=== PATIENT | female | born 1955 | race Caucasian/White ===

== ENCOUNTER 2016-11-30 11:22 | Emergency (ER) | payer MEDICARE, MEDICAID ==
[~2016-11-30] VITALS: Ht 180.3 cm; Wt 86.2 kg
[~2016-11-30 11:22] MED LIST: ALB.5NB20 HHN; ALB0.5V INH; ALBU8.5H2; ALBUTERAL INHALER; ASP325T; ASP325T PO; AZIT-21 PO; CEFP250T2 PO; CLIN300C3 PO; COUMADIN; CPR500T PO; CRESTOR; CYCL10TA9 PO; DOXY100C2; DOXY100C2 PO; FURO40TA4 PO; GFCD10B PO; HYDR-1231 PO; HYDR1TAB71 PO; KCL20TCR; LASIX; METO25TA; METO25TA PO; NEXIUM; NF-ESOM40C PO; NFPRILOC40; PHEN118S11 PO; PRD20T PO; PRM25T PO; PROP1TAB77 PO; PRV20T GT; ROSU10TA12 PO; TOPROL; TRAM-21; WARF3TAB PO; WARF6TAB PO; WRF3T PO; [UNRECOGNIZED DRUG - OTHER]
[2016-11-30 12:20] LABS: BASOPHILS # (AUTO) 0.1 10^3/uL (0.0-0.1); BASOPHILS % (AUTO) 1 % (0-10); EOSINOPHILS # (AUTO) 0.5 10^3/uL (0.0-0.3); EOSINOPHILS % (AUTO) 6 % (0-10); LYMPHOCYTES # (AUTO) 1.6 X 10^3 (1.0-4.0); LYMPHOCYTES % (AUTO) 18 % (12-44); MEAN CORPUSCULAR HEMOGLOBIN 28 PG (25-34); MEAN CORPUSCULAR HGB CONC 33 G/DL (32-36); MEAN CORPUSCULAR VOLUME 86 FL (80-99); MEAN PLATELET VOLUME 10.5 FL (7.4-10.4); MONOCYTES # (AUTO) 1.2 X 10^3 (0.0-1.0); MONOCYTES % (AUTO) 13 % (0-12); NEUTROPHILS # (AUTO) 5.6 X 10^3 (1.8-7.8); NEUTROPHILS % (AUTO) 62 % (42-75); PLATELET COUNT 266 10^3/uL (130-400); RED BLOOD COUNT 4.58 10^6/uL (4.35-5.85); RED CELL DISTRIBUTION WIDTH 14.8 % (10.0-14.5); WHITE BLOOD COUNT 8.9 10^3/uL (4.3-11.0)
--- NOTE | 2016-11-30 12:21 | Diagnostic Imaging Report ---
INDICATION: Chest pain for several days starts posteriorly in the left shoulder radiates into chest. Comparison study: Chest from 2014. FINDINGS: Frontal and lateral views of the chest demonstrates previous coronary artery bypass graft changes. There is a stable calcified lesion in the right midlung. Heart size and vascularity are normal. The lungs otherwise clear. IMPRESSION: There are no acute findings. Dictated by: Dictated on workstation # [id number]
[2016-11-30 12:31] LABS: INR 1.2 (0.8-1.4)
--- NOTE | 2016-11-30 12:34 | ED General ---
General Chief Complaint: Cough/Cold/Flu Symptoms Stated Complaint: COUGH/RIB PAIN SHAKEY Nursing Triage Note: pt reports cough/cold/malaise x3 days. Reports she was seen by her DR yesterday and prescribed azythromycin. Pt reports she has had 2 doses. 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 Nursing Sepsis Screen: No Definite Risk Source of Information: Patient Exam Limitations: No Limitations History of Present Illness Time Seen by Provider: 11:24 Initial Comments This 61-year-old woman presents to the emergency room with complaints of productive cough and fever. She is afebrile at present but took Tylenol at home. She reports being febrile yesterday and the day before. She has been ill for about 3 days. She has generalized myalgias and headache. She was seen in an urgent care setting yesterday and started on azithromycin. She has taken 2 doses. Allergies and Home Medications Allergies Coded Allergies: Iodinated Contrast Media - IV Dye (Verified Allergy, Unknown, 05/28/06) Penicillins (Verified Allergy, Unknown, 05/29/06) tramadol (Unverified Allergy, Unknown, 01/22/14) vancomycin (Verified Allergy, Unknown, 05/29/06) Home Medications NEEDED (Reported) (Reported) Aspirin 325 Mg Tab 325 MG PO DAILY (Reported) Cefprozil 250 Mg Tablet 10Days 1 TAB PO BID Prescribed by: OG FERNANDO on 05/14/141999 Esomeprazole Mag Trihydrate 40 Mg Capsule.dr 40 MG PO DAILY (Reported) Furosemide 40 Mg Tablet 40 MG PO DAILY (Reported) Hydrocodone Bit/Acetaminophen 1 Each Tablet 1 EACH PO (Reported) Metoprolol Succinate 25 Mg Tab.sr.24h 25 MG PO DAILY (Reported) Warfarin Sodium 3 Mg Tablet 9 MG PO DAILY EXCEPT WOLFF/TU (Reported) 12 mg on WOLFF-TU Warfarin Sodium 3 Mg Tablet 12 MG PO ON TUE- (Reported) Constitutional: see HPI EENTM: no symptoms reported Respiratory: see HPI Cardiovascular: no symptoms reported Gastrointestinal: no symptoms reported Genitourinary: no symptoms reported Musculoskeletal: no symptoms reported Skin: no symptoms reported Psychiatric/Neurological: See HPI Hematologic/Lymphatic: No Symptoms Reported Past Esfkaqe-Xcoaym-Jptipt Hx Patient Social History Alcohol Use: Denies Use Recreational Drug Use: No Smoking Status: Never a Smoker Recent Foreign Travel: No Contact w/Someone Who Travel: No Recent Infectious Disease Expo: No Recent Hopitalizations: Yes Immunizations Up To Date Tetanus Booster (TDap): Unknown Surgeries HX Surgeries: Yes (HEART VALVE) Surgeries: Appendectomy, CABG, Tubal Ligation, Valve Replacement Respiratory Hx Respiratory Disorders: Yes Respiratory Disorders: Asthma, Chronic Bronchitis, COPD Cardiovascular Hx Cardiac Disorders: Yes (VALVE REPLACEMENT) Cardiac Disorders: Coronary Artery Disease, Hypertension, Valvular Heart Disease Neurological Hx Neurological Disorders: No Reproductive System Hx Reproductive Disorders: No Genitourinary Hx Genitourinary Disorders: Yes Genitourinary Disorders: UTI-Chronic Gastrointestinal Hx Gastrointestinal Disorders: Yes Gastrointestinal Disorders: Gastroesophageal Reflux, Hiatal Hernia Musculoskeletal Hx Musculoskeletal Disorders: Yes Musculoskeletal Disorders: Arthritis, Rheumatoid Arthritis Endocrine Hx Endocrine Disorders: No HEENT HX ENT Disorders: No Cancer Hx Cancer: No Psychosocial Hx Psychiatric Problems: No Integumentary HX Skin/Integumentary Disorder: No Blood Transfusions Hx Blood Disorders: No Physical Exam Vital Signs Vital Sign - Last 12Hours 11/30/16 11/30/16 11:43 12:16 Temp 96.9 Pulse 99 Resp 18 B/P 130/71 Pulse Ox 95 O2 Delivery Room Air Capillary Refill : Less Than 3 Seconds General Appearance: WD/WN Mild Distress HEENT: PERRL/EOMI TMs Normal Normal ENT Inspection Pharyngeal Erythema Neck: Normal Inspection Respiratory: Lungs Clear Normal Breath Sounds No Accessory Muscle Use No Respiratory Distress Cardiovascular: Regular Rate, Rhythm No Edema No Murmur Gastrointestinal: Normal Bowel Sounds Non Tender Soft Extremity: Normal Inspection No Pedal Edema Neurologic/Psychiatric: Alert Oriented x3 No Motor/Sensory Deficits Normal Mood/Affect armature balancer II-XII Norm as Tested Skin: Normal Color Warm/Dry Progress/Results/Core Measures Results/Orders Lab Results Laboratory Tests Test 11/30/16 12:11 Range/Units Alanine Aminotransferase (ALT/SGPT) 28 0-55 U/L Albumin 3.9 3.2-4.5 G/DL Alkaline Phosphatase 95 40-136 U/L Anion Gap 11 5-14 MMOL/L Aspartate Amino Transf (AST/SGOT) 33 5-34 U/L BUN/Creatinine Ratio 21 Basophils # (Auto) 0.1 0.0-0.1 10^3/uL Basophils (%) (Auto) 1 0-10 % Blood Urea Nitrogen 18 7-18 MG/DL Calcium Level 8.8 8.5-10.1 MG/DL Carbon Dioxide Level 21 21-32 MMOL/L Chloride Level 107 98-107 MMOL/L Creatinine 0.87 0.60-1.30 MG/DL Eosinophils # (Auto) 0.5 H 0.0-0.3 10^3/uL Eosinophils (%) (Auto) 6 0-10 % Estimat Glomerular Filtration Rate > 60 Glucose Level 115 H 70-105 MG/DL Hematocrit 39 35-52 % Hemoglobin 12.9 11.5-16.0 G/DL INR Comment 1.2 0.8-1.4 Lymphocytes # (Auto) 1.6 1.0-4.0 X 10^3 Lymphocytes (%) (Auto) 18 12-44 % Mean Corpuscular Hemoglobin 28 25-34 PG Mean Corpuscular Hemoglobin Concent 33 32-36 G/DL Mean Corpuscular Volume 86 80-99 FL Mean Platelet Volume 10.5 H 7.4-10.4 FL Monocytes # (Auto) 1.2 H 0.0-1.0 X 10^3 Monocytes (%) (Auto) 13 H 0-12 % Neutrophils # (Auto) 5.6 1.8-7.8 X 10^3 Neutrophils (%) (Auto) 62 42-75 % Platelet Count 266 130-400 10^3/uL Potassium Level 3.3 L 3.6-5.0 MMOL/L Prothrombin Time 15.0 H 12.2-14.7 SEC Red Blood Count 4.58 4.35-5.85 10^6/uL Red Cell Distribution Width 14.8 H 10.0-14.5 % Sodium Level 139 135-145 MMOL/L Total Bilirubin 0.5 0.1-1.0 MG/DL Total Protein 7.1 6.4-8.2 G/DL White Blood Count 8.9 4.3-11.0 10^3/uL Micro Results Microbiology 11/30/16 Influenza Types A,B Antigen (JORGE) - Final, Complete My Orders Orders-DENNYS LEWIS MD Chest Pa/Lat (2 View) (11/30/16 11:24) Influenza A And B Antigens (11/30/16 11:24) Cbc With Automated Diff (11/30/16 11:38) Comprehensive Metabolic Panel (11/30/16 11:38) Saline Lock/Iv-Start (11/30/16 11:38) Protime With Inr (11/30/16 12:16) Potassium Chloride (Tablet) (Klor Con Ta (11/30/16 13:15) Medications Given in ED Current Medications Medications Dose Ordered Sig/Korey Route Start Time Stop Time Status Last Admin Dose Admin Potassium Chloride 20 meq ONCE ONCE PO 11/30/16 13:15 11/30/16 13:15 DC 11/30/16 13:09 20 MEQ Vital Signs/I&O Vital Sign - Last 12Hours 11/30/16 11/30/16 11:43 12:16 Temp 96.9 Pulse 99 Resp 18 B/P 130/71 Pulse Ox 95 O2 Delivery Room Air Blood Pressure Mean: 90 Progress Note #1: Time: 12:35 Progress Note Influenza screen and chest x-ray were negative. Labs are still pending. Progress Note #2: Progress Note Chest x-ray and influenza screen were negative. No source of bacterial infection was identified. Patient was instructed to finish her azithromycin. She was also advised to follow-up with community health by phone within the next 24 hours to discuss monitoring of her INR. I advise she was allowed a very small amount of ibuprofen over the next 48 hours to help manage her myalgias. Potassium was given orally prior to dismissal. Diagnostic Imaging Diagonstic Imaging: Xray Plain Films/CT/US/NM/MRI: chest Comments Two-view chest x-ray viewed by me and report reviewed. See report below: NAME: BALAJI QUICK [facility] REC#: [id number] PT STATUS: REG ER : 1955 PHYSICIAN: DENNYS LEWIS MD ADMIT DATE: 11/30/16/ER Draft Date of Exam:11/30/16 CHEST PA/LAT (2 VIEW) INDICATION: Chest pain for several days starts posteriorly in the left shoulder radiates into chest. Comparison study: Chest from 2013. FINDINGS: Frontal and lateral views of the chest demonstrates previous coronary artery bypass graft changes. There is a stable calcified lesion in the right midlung. Heart size and vascularity are normal. The lungs otherwise clear. IMPRESSION: There are no acute findings. Dictated on workstation # [id number] Dict: 11/30/16 1214 Trans: 11/30/16 1221 [facility] [id number] Interpreted by: FRANNIE SELF MD Departure Impression Impression: Primary Impression: Upper respiratory infection Qualified Code: J06.9 - Acute upper respiratory infection, unspecified Additional Impression: Subtherapeutic international normalized ratio (INR) Disposition: 01 HOME, SELF-CARE Condition: Stable Departure-Patient Inst. Decision time for Depature: 12:30 Referrals: [facility] (PCP/Family) Primary Care Physician Patient Instructions: Viral Upper Respiratory Infection, Adult (DC) Add. Discharge Instructions: Complete the azithromycin as prescribed. Return to care if symptoms worsen. Your INR was low today at 1.2. This needs to be monitored closely, especially while you're on antibiotics. Please contact your primary care provider today to discuss how this should be managed. You may take ibuprofen up to 400 mg 3 times daily for 1 or 2 days only while you're ill to help manage pain. All discharge instructions reviewed with patient and/or family. Voiced understanding. Copy Copies To 1: AMELIA CURRIE JOSHUA T MD Nov 30, 2016 12:34
[2016-11-30 12:39] LABS: ALANINE AMINOTRANSFERASE 28 U/L (0-55); ALBUMIN 3.9 G/DL (3.2-4.5); ANION GAP 11 MMOL/L (5-14); ASPARTATE AMINO TRANSFERASE 33 U/L (5-34); BILIRUBIN,TOTAL 0.5 MG/DL (0.1-1.0); BLOOD UREA NITROGEN 18 MG/DL (7-18); BUN/CREATININE RATIO 21; CALCIUM 8.8 MG/DL (8.5-10.1); CARBON DIOXIDE 21 MMOL/L (21-32); CHLORIDE 107 MMOL/L (98-107); CREATININE SERUM 0.87 MG/DL (0.60-1.30); GFR ESTIMATED > 60; GLUCOSE 115 MG/DL (70-105); POTASSIUM 3.3 MMOL/L (3.6-5.0); SODIUM 139 MMOL/L (135-145); TOTAL PROTEIN 7.1 G/DL (6.4-8.2)
[2016-11-30 13:14] VITALS: BP 117/72
[2016-11-30] MEDS ORDERED: KCL 10 MEQ TAB (MICRO K) PO ONE (13:15)
== END 2016-11-30 13:14 ==
LOC: EDUNIT# 11:22 → ER 11:25
DX: J06.9 Acute upper respiratory infection, unspecified (principal); J44.9 Chronic obstructive pulmonary disease, unspecified; I25.10 Atherosclerotic heart disease of native coronary artery without angina pectoris; Z95.1 Presence of aortocoronary bypass graft; Z79.82 Long term (current) use of aspirin; Z79.01 Long term (current) use of anticoagulants; Z95.2 Presence of prosthetic heart valve
CPT/HCPCS: 36415; 71020; 80053; 85025; 85610; 87804

== ENCOUNTER 2017-01-16 09:05 | Emergency (ER) | payer MEDICARE, MEDICAID ==
[~2017-01-16] VITALS: Ht 149.9 cm; Wt 88.9 kg
[2017-01-16] MEDS ORDERED: RT-ALBUINH IH (09:20)
--- NOTE | 2017-01-16 09:50 | ED EENT ---
History of Present Illness General Chief Complaint: Dental Problems/Pain Stated Complaint: L SIDE DENTAL PAIN Nursing Triage Note: PT STATES LT UPPER DENTAL PAIN THAT STARTED LAST NIGHT. Source: patient Exam Limitations: no limitations History of Present Illness Time seen by provider: 09:45 Initial Comments This 61-year-old white female presents with dental caries that began last evening. The patient is complaining of pain over her left maxillary second molar. The patient has had no associated fever, chills, headache or stiff neck , difficulty with swallowing, or remarkable soft tissue swelling to the gingival area or left maxillary area. Past medical history includes cardiovascular disease. The patient is status post valve replacement and is on Coumadin. Allergies and Home Medications Allergies Coded Allergies: Iodinated Contrast Media - Oral and (Verified Allergy, Unknown, 05/28/06) Penicillins (Verified Allergy, Unknown, 05/29/06) tramadol (Unverified Allergy, Unknown, 01/22/14) vancomycin (Verified Allergy, Unknown, 05/29/06) Home Medications Albuterol Sulfate 6.7 Gm Hfa.aer.ad, 2 PUFF IH Q6H PRN for SHORTNESS OF BREATH, (Reported) Aspirin 325 Mg Tab, 325 MG PO DAILY, Ref 0 (Reported) Cefprozil 250 Mg Tablet, 1 TAB PO BID for 10 Days, Ref 0 Prescribed by: OG FERNANDO on 05/14/141999 Esomeprazole Mag Trihydrate 40 Mg Capsule.dr, 40 MG PO DAILY, (Reported) Furosemide 40 Mg Tablet, 40 MG PO DAILY, Ref 0 (Reported) Metoprolol Succinate 25 Mg Tab.sr.24h, 25 MG PO DAILY, (Reported) Warfarin Sodium 3 Mg Tablet, 9 MG PO DAILY EXCEPT WOLFF/TU, (Reported) 12 mg on WOLFF-TU Warfarin Sodium 3 Mg Tablet, 12 MG PO ON SUN-TUES, (Reported) [Albuteral Inhaler] , NEEDED, (Reported) Review of Systems Constitutional: No chills, No fever Eyes: Denies Blindness Ears: Denies Pain Nose: denies epistaxis Mouth: see HPI, pain (In the left maxillary area.) Throat: denies neck stiffness, denies painful swallowing Respiratory: no symptoms reported, No cough Cardiovascular: no symptoms reported, No chest pain Gastrointestinal: No abdominal pain, No vomiting : No Musculoskeletal: No back pain Skin: No rash Neurological: No Symptoms Reported Hematologic/Lymphatic: No Symptoms Reported Immunological/Allergic: no symptoms reported Past Rmtcoin-Plhhgu-Zdugid Hx Patient Social History Alcohol Use: Denies Use Recreational Drug Use: No Smoking Status: Former Smoker Type Used: Cigarettes Recent Foreign Travel: No Contact w/Someone Who Travel: No Recent Infectious Disease Expo: No Recent Hopitalizations: No Immunizations Up To Date Tetanus Booster (TDap): Unknown Surgeries HX Surgeries: Yes (HEART VALVE) Surgeries: Appendectomy, CABG, Tubal Ligation, Valve Replacement Respiratory Hx Respiratory Disorders: Yes Respiratory Disorders: Asthma, Chronic Bronchitis, COPD Cardiovascular Hx Cardiac Disorders: Yes (VALVE REPLACEMENT) Cardiac Disorders: Coronary Artery Disease, Hypertension, Valvular Heart Disease Neurological Hx Neurological Disorders: No Reproductive System Hx Reproductive Disorders: No Genitourinary Hx Genitourinary Disorders: Yes Genitourinary Disorders: UTI-Chronic Gastrointestinal Hx Gastrointestinal Disorders: Yes Gastrointestinal Disorders: Gastroesophageal Reflux, Hiatal Hernia Musculoskeletal Hx Musculoskeletal Disorders: Yes Musculoskeletal Disorders: Arthritis, Rheumatoid Arthritis Endocrine Hx Endocrine Disorders: No HEENT HX ENT Disorders: No Cancer Hx Cancer: No Psychosocial Hx Psychiatric Problems: No Integumentary HX Skin/Integumentary Disorder: No Blood Transfusions Hx Blood Disorders: No Reviewed Nursing Assessment Reviewed/Agree w Nursing PMH: Yes Physical Exam Vital Signs Vital Sign - Last 12Hours 01/16/17 09:13 Temp 96.8 Pulse 66 Resp 20 B/P (MAP) 179/86 Pulse Ox 97 O2 Delivery Room Air General Appearance: WD/WN, no apparent distress Eyes: bilateral eye normal inspection Ears: bilateral ear auricle normal Nose: normal inspection Mouth/Throat: pharynx normal, dental tenderness (over the left maxillary second molar.) Neck: non-tender, supple Cardiovascular: regular rate, rhythm Respiratory: lungs clear, normal breath sounds, no respiratory distress Gastrointestinal: normal bowel sounds, non tender Neurologic/Psychiatric: no motor/sensory deficits, alert, normal mood/affect Skin: normal color, warm/dry Progress/Results/Core Measures Results/Orders Vital Signs/I&O Vital Sign - Last 12Hours 01/16/17 09:13 Temp 96.8 Pulse 66 Resp 20 B/P (MAP) 179/86 Pulse Ox 97 O2 Delivery Room Air Blood Pressure Mean: 117 Progress Note : Time: 09:49 Progress Note The patient allergic to penicillin. I put the patient on clindamycin. I gave the patient a few Vicodin for pain. She will follow-up with her dentist at [facility] on Tuesday for extraction of her remaining teeth including the left maxillary second molar which is currently infected. Departure Impression Impression: Primary Impression: Dental caries Disposition: HOME, SELF-CARE Departure-Patient Inst. Referrals: [facility] (PCP/Family) Primary Care Physician Patient Instructions: Dental Pain (DC) Add. Discharge Instructions: Clindamycin and Vicodin as prescribed. Follow-up with [facility] dentist tomorrow. Return if any problems. All discharge instructions reviewed with patient and/or family. Voiced understanding. MIHAI ROBERTS MD Jan 16, 2017 09:50
[2017-01-16 10:05] VITALS: BP 179/86
--- OUTSIDE RECORDS SUMMARY | 2017-02-08 11:46 | XMS REPORT ---
Author Author BHARAT MANCIA Organization [employer] Address Unknown Phone Unavailable Care Team Providers Care Health Benefits Specialist Name Role Phone BHARAT MANCIA CP Unavailable Allergies No Known Allergies Problems Problem Type Condition Code Onset Dates Condition Status Problem Chronic airway obstruction, not elsewhere classified 496 Active Problem Impaired fasting glucose 790.21 Active Problem CAD (coronary artery disease) 414.00 Active Problem Urge incontinence 788.31 Active Problem Essential hypertension, benign 401.1 Active Problem Encounter for long-term (current) use of anticoagulants V58.61 Active Problem Nontoxic uninodular goiter 241.0 Active Medications No Known Medications Results No Known Results Summary Purpose [employer] Submission
--- OUTSIDE RECORDS SUMMARY | 2017-02-08 11:46 | XMS REPORT ---
Author Author BHARAT MANCIA Organization [employer] Address Unknown Phone Unavailable Care Team Providers Care Ems Director Name Role Phone BHARAT MANCIA CP Unavailable [...]
--- OUTSIDE RECORDS SUMMARY | 2017-02-08 11:46 | XMS REPORT ---
Author Author BHARAT MANCIA [facility] [employer] Address Unknown Phone Unavailable Care Team Providers Care Pilot Safety Inspector Name Role Phone BHARAT MANCIA CP Unavailable Allergies, Adverse Reactions, Alerts Substance Reaction Event Type Singulair Info Not Available Drug Allergy Simvastatin Info Not Available Drug Allergy Penicillin V Potassium Info Not Available Drug Allergy Iodine Info Not Available Drug Allergy Problems Problem Type Condition Code Onset Dates Condition Status Problem Urge incontinence 788.31 Active Problem Impaired fasting glucose 790.21 Active Problem Nontoxic uninodular goiter 241.0 Active Assessment Breast cancer screening Z12.39 Active Assessment Hyperglycemia R73.9 Active Problem exterminator (current) use of anticoagulants Z79.01 Active Problem Atherosclerotic heart disease of [place] coronary artery without angina pectoris I25.10 Active Problem Breast cancer screening Z12.39 Active Problem COPD (chronic obstructive pulmonary disease) J44.9 Active Problem Chronic airway obstruction, not elsewhere classified 496 Active Problem Essential (primary) hypertension I10 Active Problem Hyperglycemia R73.9 Active Medications Medication Code System Code Instructions Start Date End Date Status Dosage Warfarin Sodium [facility] [address]-95 6 MG Orally January 14, 2016 1 tablet daily on M,T,TH,F,Sun and 1.5 Tablets on W, and Sat Nexium [facility] [address]-72 40 mg Orally Once a day Oct 22, 2014 1 capsule Nebulizer/Tubing/Mouthpiece ND 0 ... January 05, 2016 as directed Albuterol Sulfate [facility] [address]-60 (2.5 MG/3ML) 0.083% Inhalation 2 times a day December 22, 2015 3 ml Furosemide [facility] 63054517916 40 MG 1 tablet by Oral route 1 time per day Metoprolol Succinate ER [facility] [address]-40 25 MG Orally Once a day December 1 tablet ProAir HFA [facility] 41938691979 108MCG/A INHALE TWO PUFFS BY MOUTH EVERY 6 HOURS NEEDED FOR SHORTNESS OF BREATH OR COUGH MetFORMIN HCl ER [facility] [address]-54 500 MG Orally twice a day April 26, 2016 2 tablet Procedures Procedure Coding System Code Date CR[facility]ESS [facility]PITAL VISIT ESTABLISHED PATIENT CPT-4 G0467 April 26, 2016 Office Visit, Est Pt., Level 3 CPT-4 90658 April 26, 2016 GLYCATED HEMOGLOBIN TEST CPT-4 54394 April 26, 2016 Vital Signs Date/Time: April 26, 2016 Cardiac Monitoring Heart Rate 80 bpm Weight 201.0 lbs Height 59 in BMI 40.59 Index Blood Pressure Diastolic 84 mmHg Blood Pressure Systolic 124 mmHg Results No Known Results Summary Purpose [employer]Clinical[employer] Submission
--- OUTSIDE RECORDS SUMMARY | 2017-02-08 11:54 | XMS REPORT ---
Author Author BHARAT MANCIA [facility] Address [address] [place] [address] Care Team Providers Care Access Services Assistant Name Role Phone BHARAT MANCIA Unavailable PROBLEMS Type Condition ICD9-CM Code WVG24-AQ Code Onset Dates Condition Status SNOMED Code Problem Nontoxic uninodular goiter 241.0 Active 986678398 Problem Chronic airway obstruction, not elsewhere classified 496 Active 68940104 Problem Impaired fasting glucose 790.21 Active 545221265 Assessment Nasal congestion R09.81 Aug, Active 05517713 Problem Urge incontinence 788.31 Active 40861674 Problem Breast cancer screening Z12.39 Active 603357331 Problem group home (current) use of anticoagulants Z79.01 Active 454935304 Problem Hyperglycemia R73.9 Active 15118764 Problem COPD (chronic obstructive pulmonary disease) J44.9 Active 05771204 Problem Atherosclerotic heart disease of [place] coronary artery without angina pectoris I25.10 Active 527423338101066 Problem Essential (primary) hypertension I10 Active 75550239 ALLERGIES Substance Reaction Event Type Date Status Singulair Unknown Drug Allergy Aug, Active Simvastatin Unknown Drug Allergy Aug, Active Penicillin V Potassium Unknown Drug Allergy Aug, Active Iodine Unknown Drug Allergy Aug, Active SOCIAL HISTORY No smoking Hx information available PLAN OF CARE VITAL SIGNS Height 59 in 2016-09-07 Weight 201.3 lbs 2016-09-07 Heart Rate 72 bpm 2016-09-07 Respiratory Rate 18 2016-09-07 BMI 40.65 kg/m2 2016-09-07 Blood pressure systolic 122 mmHg 2016-09-07 Blood pressure diastolic 72 mmHg 2016-09-07 MEDICATIONS Medication Instructions Dosage Frequency Start Date End Date Duration Status Warfarin Sodium 6 MG 1 tablet daily on M,T,TH,F,Sun and 1.5 Tablets on W, and Sat Active Furosemide 40 MG 1 tablet by Oral route 1 time per day 90 Active Albuterol Sulfate (2.5 MG/3ML) 0.083% Inhalation 2 times a day 3 ml 12h 07 Dec, 2015 Active Zyrtec Allergy 10 mg Orally Once a day as needed for congestion 1 capsule Aug, Active Hydrocodone-Acetaminophen 7.5-325 MG Orally Once a day 1 tablet as needed 24h 18 Aug, 2016 Active Metoprolol Succinate ER 25 MG Orally Once a day 1 tablet 24h Dec, 90 Active Nebulizer/Tubing/Mouthpiece ... as directed Dec, Active MetFORMIN HCl ER 500 MG Orally twice a day 2 tablet 12h Apr, Active ProAir HFA 108MCG/A INHALE TWO PUFFS BY MOUTH EVERY 6 HOURS NEEDED FOR SHORTNESS OF BREATH OR COUGH 25 Active Nexium 40 mg Orally Once a day 1 capsule 24h Oct, 30 days Active Doxycycline Hyclate 100 MG Orally every 12 hrs 1 capsule 12h Aug, Aug, 10 days Active Promethazine-Codeine 6.25-10 MG/5ML Orally every 6 hrs 5 ml as needed 6h Aug, Active RESULTS No Results PROCEDURES Procedure Date Ordered Related Diagnosis Body Site [facility] VISIT ESTABLISHED PATIENT Sep 07, 2016 Office Visit, Est Pt., Level 3 Sep 07, 2016 IMMUNIZATIONS No Known Immunizations
--- OUTSIDE RECORDS SUMMARY | 2017-02-08 11:54 | XMS REPORT ---
Author Author BHARAT MANCIA Organization [employer] Address Unknown Phone Unavailable Care Team Providers Care Core Winder Machine Operator Name Role Phone BHARAT MANCIA CP Unavailable [...] Problem Nontoxic uninodular goiter 241.0 Active Medications Medication Code System Code Instructions Start Date End Date Status Dosage Hydrocodone-Acetaminophen [facility] [address]-09 7.5-325 MG LAST REFILL PT MUST HAVE AN APPT Dec 02, 2014 1 Tablet by Oral route 1 time per day PRN Results No Known Results Summary Purpose [employer] Submission
--- OUTSIDE RECORDS SUMMARY | 2017-02-08 11:54 | XMS REPORT ---
Author Author BHARAT MANCIA [facility] e[employer] Address Unknown Phone Unavailable Care Team Providers Care Bullard Machine Operator Name Role Phone BHARAT MANCIA CP Unavailable Allergies No Known Allergies Problems Problem Type Condition Code Onset Dates Condition Status Problem Urge incontinence 788.31 Active Problem Impaired fasting glucose 790.21 Active Problem Nontoxic uninodular goiter 241.0 Active Assessment placement interviewer (current) use of anticoagulants Z79.01 Active Problem jail (current) use of anticoagulants Z79.01 Active Problem Atherosclerotic heart disease of [place] coronary artery without angina pectoris I25.10 Active Problem Breast cancer screening Z12.39 Active Problem COPD (chronic obstructive pulmonary disease) J44.9 Active Problem Chronic airway obstruction, not elsewhere classified 496 Active Problem Essential (primary) hypertension I10 Active Problem Hyperglycemia R73.9 Active Medications No Known Medications Results No Known Results Summary Purpose [employer] Submission
--- OUTSIDE RECORDS SUMMARY | 2017-02-08 11:54 | XMS REPORT | Continuity of Care Document ---
Author Author [facility] Address Unknown Phone Unavailable Allergies Active Description Code Type Severity Reaction Onset Reported/Identified Relationship to Patient Clinical Status Yes Iodinated Contrast Media - IV Dye [id number] Drug Allergy Unknown N/A 05/28/2006 Yes Iodinated Contrast Media - Oral and [id number] Drug Allergy Unknown N/A 05/28/2006 Yes Penicillins [id number] Drug Allergy Unknown N/A 05/29/2006 Yes vancomycin [id number] Drug Allergy Unknown N/A 05/29/2006 Yes hydrocodone Drug Allergy N/A N/A 2009 Yes Penicillins Drug Allergy N/A N/A 2009 Yes hydrocodone Drug Allergy 2009 Yes Penicillins Drug Allergy 2009 Yes Ultram Drug Allergy N/A N/A 10/20/2009 Yes Ultram Drug Allergy 10/20/2009 Yes codeine Drug Allergy N/A N/A 01/01/2010 Yes codeine Drug Allergy 01/01/2010 Yes simvastatin 40 mg tablet Drug Allergy N/A N/A 01/29/2013 Yes simvastatin 40 mg tablet Drug Allergy 01/29/2013 Yes Singulair 10 mg tablet Drug Allergy N/A N/A 02/09/2013 Yes tramadol [id number] Drug Allergy Unknown N/A 01/22/2014 Medications Problems Date Dx Coded Attending Type Code Diagnosis Diagnosed By 2009 MAGDALENA EUCEDA MD 424.1 AORTIC STENOSIS 2009 MAGDALENA EUCEDA MD V58.69 taking high-risk medication 2009 MAGDALENA EUCEDA MD 424.1 AORTIC STENOSIS 2009 MAGDALENA EUCEDA MD V58.69 taking high-risk medication for a long time 2009 MAGDALENA EUCEDA MD 424.1 AORTIC STENOSIS 2009 MAGDALENA EUCEDA MD V58.69 taking high-risk medication for a long time 2009 424.1 AORTIC STENOSIS 2009 V58.69 taking high-risk medication for a long time 2009 MAGDALENA EUCEDA MD 424.1 AORTIC STENOSIS 2009 MAGDALENA EUCEDA MD V58.69 taking high-risk medication for a long time 2009 424.1 AORTIC STENOSIS 2009 V58.69 taking high-risk medication for a long time 2009 424.1 AORTIC STENOSIS 2009 V58.69 taking high-risk medication for a long time 2009 424.1 AORTIC STENOSIS 2009 V58.69 taking high-risk medication for a long time 2009 424.1 AORTIC STENOSIS 2009 V58.69 taking high-risk medication for a long time 2009 424.1 AORTIC STENOSIS 2009 V58.69 taking high-risk medication for a long time 2009 424.1 AORTIC STENOSIS 2009 V58.69 taking high-risk medication for a long time 2009 424.1 AORTIC STENOSIS 2009 V58.69 taking high-risk medication for a long time 2009 424.1 AORTIC STENOSIS 2009 V58.69 taking high-risk medication for a long time 2009 FELIBERTO GARCIA APRN 424.1 AORTIC STENOSIS 2009 FELIBERTO GARCIA APRN V58.69 taking high-risk medication for a long time 2009 MAGDALENA EUCEDA MD 424.1 AORTIC STENOSIS 2009 MAGDALENA EUCEDA MD V58.69 taking high-risk medication for a long time 2009 MAGDALENA EUCEDA MD 424.1 AORTIC STENOSIS 2009 MAGDALENA EUCEDA MD V58.69 taking high-risk medication for a long time 2009 ALLI HUNT MD 424.1 AORTIC STENOSIS 2009 ALLI HUNT MD V58.69 taking high-risk medication for a long time 2009 MAGDALENA EUCEDA MD 424.1 AORTIC STENOSIS 2009 MAGDALENA EUCEDA MD V58.69 taking high-risk medication 2009 AMELIA CURRIE DO 424.1 AORTIC STENOSIS 2009 CURRIE DO, AMELIA K V58.69 taking high-risk medication for a long time 2009 CURRIE DO, AMELIA K 424.1 AORTIC STENOSIS 2009 UCRRIE DO, AMELIA K V58.69 taking high-risk medication for a long time 2009 CURRIE DO, AMELIA K 424.1 AORTIC STENOSIS 2009 CURRIE DO, AMELIA K V58.69 taking high-risk medication for a long time 2009 CURRIE DO, AMELIA K 424.1 AORTIC STENOSIS 2009 CURRIE DO, AMELIA K V58.69 taking high-risk medication for a long time 2009 CURRIE DO, AMELIA K 424.1 AORTIC STENOSIS 2009 CURRIE DO, AMELIA K V58.69 taking high-risk medication for a long time 2009 CHARITY PAPER MILL MANAGER, MARCI A 424.1 AORTIC STENOSIS 2009 CHARITY PAPER MILL MANAGER, MARCI A V58.69 taking high-risk medication for a long time 2009 MADL PAPER MILL MANAGER, JHONATAN L 424.1 AORTIC STENOSIS 2009 MADL PAPER MILL MANAGER, JHONATAN L V58.69 taking high-risk medication for a long time 2009 424.1 AORTIC STENOSIS 2009 V58.69 taking high-risk medication for a long time 2009 CURRIE DO, AMELIA K 424.1 AORTIC STENOSIS 2009 CURRIE DO, AMELIA K V58.69 taking high-risk medication for a long time 2009 CURRIE DO, AMELIA K 424.1 AORTIC STENOSIS 2009 CURRIE DO, AMELIA K V58.69 taking high-risk medication for a long time 2009 MADL PAPER MILL MANAGER, JHONATAN L 424.1 AORTIC STENOSIS 2009 MADL PAPER MILL MANAGER, JHONATAN L V58.69 taking high-risk medication for a long time 2009 MADL PAPER MILL MANAGER, JHONATAN L 424.1 AORTIC STENOSIS 2009 MADL PAPER MILL MANAGER, JHONATAN L V58.69 taking high-risk medication for a long time 2009 MADL PAPER MILL MANAGER, JHONATAN L 424.1 AORTIC STENOSIS 2009 MADL PAPER MILL MANAGER, JHONATAN L V58.69 taking high-risk medication for a long time 2009 CURRIE DO, AMELIA K 424.1 AORTIC STENOSIS 2009 CURRIE DO, AMELIA K V58.69 taking high-risk medication for a long time 2009 MADL PAPER MILL MANAGER, JHONATAN L 424.1 AORTIC STENOSIS 2009 MADL PAPER MILL MANAGER, JHONATAN L V58.69 taking high-risk medication for a long time 2009 MADL PAPER MILL MANAGER, JHONATAN L 424.1 AORTIC STENOSIS 2009 MADL PAPER MILL MANAGER, JHONATAN L V58.69 taking high-risk medication for a long time 2009 MADL PAPER MILL MANAGER, JHONATAN L 424.1 AORTIC STENOSIS 2009 MADL PAPER MILL MANAGER, JHONATAN L V58.69 taking high-risk medication for a long time 2009 CURRIE DO, AMELIA K 424.1 AORTIC STENOSIS 2009 CURRIE DO, AMELIA K V58.69 taking high-risk medication for a long time 2009 MADL PAPER MILL MANAGER, JHONATAN L 424.1 AORTIC STENOSIS 2009 MADL PAPER MILL MANAGER, JHONATAN L V58.69 taking high-risk medication for a long time 2009 MADL PAPER MILL MANAGER, JHONATAN L 424.1 AORTIC STENOSIS 2009 MADL PAPER MILL MANAGER, JHONATAN L V58.69 taking high-risk medication for a long time 2009 MAVERICK PAPER MILL MANAGER, ZACHARIAH R 424.1 AORTIC STENOSIS 2009 MAVERICK PAPER MILL MANAGER, ZACHARIAH R V58.69 taking high-risk medication for a long time 2009 MADL PAPER MILL MANAGER, JHONATAN L 424.1 AORTIC STENOSIS 2009 MADL PAPER MILL MANAGER, JHONATAN L V58.69 taking high-risk medication for a long time 2009 MADL PAPER MILL MANAGER, JHONATAN L 424.1 AORTIC STENOSIS 2009 MADL PAPER MILL MANAGER, JHONATAN L V58.69 taking high-risk medication for a long time 2009 MADL PAPER MILL MANAGER, JHONATAN L 424.1 AORTIC STENOSIS 2009 MADL PAPER MILL MANAGER, JHONATAN L V58.69 taking high-risk medication for a long time 2009 MADL PAPER MILL MANAGER, JHONATAN L 424.1 AORTIC STENOSIS 2009 MADL PAPER MILL MANAGER, JHONATAN L V58.69 taking high-risk medication for a long time 2009 MADL PAPER MILL MANAGER, JHONATAN L 424.1 AORTIC STENOSIS 2009 MADL PAPER MILL MANAGER, JHONATAN L V58.69 taking high-risk medication for a long time 2009 MADL PAPER MILL MANAGER, JHONATAN L 424.1 AORTIC STENOSIS 2009 MAD PAPER MILL MANAGER, JHONATAN L V58.69 taking high-risk medication for a long time 2009 CURRIE DO, AMELIA K 424.1 AORTIC STENOSIS 2009 CURRIE DO, AMELIA K V58.69 taking high-risk medication for a long time 2009 MAD PAPER MILL MANAGER, JHONATAN L 424.1 AORTIC STENOSIS 2009 [facility] PAPER MILL MANAGER, JHONATAN L V58.69 taking high-risk medication for a long time 2009 BLANCHE FUCHS, BHARAT S 424.1 AORTIC STENOSIS 2009 BLANCHE PAPER MILL MANAGER, BHARAT S V58.69 taking high-risk medication for a long time 2009 424.1 AORTIC STENOSIS 2009 V58.69 taking high-risk medication for a long time 2009 MAVERICK FUCHS, ZACHARIAH R 424.1 AORTIC STENOSIS 2009 MAVERICK FUCHS, ZACHARIAH R V58.69 taking high-risk medication for a long time 2009 ALMONTE DDS, SAE 424.1 AORTIC STENOSIS 2009 ALMONTE DDS, SAE V58.69 taking high-risk medication for a long time 07/22/2009 OK CHAVIS, MAGDALENA 786.05 shortness of breath 07/22/2009 OK CHAVIS, MAGDALENA 786.2 cough 07/22/2009 MAGDALENA EUCEDA MD 786.05 shortness of breath 07/22/2009 MAGDALENA EUCEDA MD 786.2 cough 07/22/2009 MAGDALENA EUCEDA MD 786.05 shortness of breath 07/22/2009 OK CHAVIS, MAGDALENA 786.2 cough 07/22/2009 786.05 shortness of breath 07/22/2009 786.2 cough 07/22/2009 OK CHAVIS, MAGDALENA 786.05 shortness of breath 07/22/2009 OK CHAVIS, MAGDALENA 786.2 cough 07/22/2009 786.05 shortness of breath 07/22/2009 786.2 cough 07/22/2009 786.05 shortness of breath 07/22/2009 786.2 cough 07/22/2009 786.05 shortness of breath 07/22/2009 786.2 cough 07/22/2009 786.05 shortness of breath 07/22/2009 786.2 cough 07/22/2009 786.05 shortness of breath 07/22/2009 786.2 cough 07/22/2009 786.05 shortness of breath 07/22/2009 786.2 cough 07/22/2009 786.05 shortness of breath 07/22/2009 786.2 cough 07/22/2009 786.05 shortness of breath 07/22/2009 786.2 cough 07/22/2009 RADHA FUCHS, FELIBERTO A 786.05 shortness of breath 07/22/2009 RADHA FUCHS FELIBERTO A 786.2 cough 07/22/2009 MAGDALENA EUCEDA MD 786.05 shortness of breath 07/22/2009 MAGDALENA EUCEDA MD 786.2 cough 07/22/2009 MAGDALENA EUCEDA MD 786.05 shortness of breath 07/22/2009 MAGDALENA EUCEDA MD 786.2 cough 07/22/2009 ALLI HUNT MD 786.05 shortness of breath 07/22/2009 ALLI HUNT MD 786.2 cough 07/22/2009 MAGDALENA EUCEDA MD 786.05 shortness of breath 07/22/2009 MAGDALENA EUCEDA MD 786.2 cough 07/22/2009 CURRIE DO, AMELIA K 786.05 SHORTNESS OF BREATH 07/22/2009 CURRIE DO, AMELIA K 786.2 COUGH 07/22/2009 CURRIE DO, AMELIA K 786.05 SHORTNESS OF BREATH 07/22/2009 CURRIE DO, AMELIA K 786.2 COUGH 07/22/2009 CURRIE DO, AMELIA K 786.05 SHORTNESS OF BREATH 07/22/2009 CURRIE DO, AMELIA K 786.2 COUGH 07/22/2009 CURRIE DO, AMELIA K 786.05 SHORTNESS OF BREATH 07/22/2009 CURRIE DO, AMELIA K 786.2 COUGH 07/22/2009 CURRIE DO, AMELIA K 786.05 SHORTNESS OF BREATH 07/22/2009 CURRIE DO, AMELIA K 786.2 COUGH 07/22/2009 CHARITY PAPER MILL MANAGER, MARCI A 786.05 SHORTNESS OF BREATH 07/22/2009 CHARITY PAPER MILL MANAGER, MARCI A 786.2 COUGH 07/22/2009 MADL PAPER MILL MANAGER, JHONATAN L 786.05 SHORTNESS OF BREATH 07/22/2009 MADL PAPER MILL MANAGER, JHONATAN L 786.2 COUGH 07/22/2009 786.05 SHORTNESS OF BREATH 07/22/2009 786.2 COUGH 07/22/2009 CURRIE DO, AMELIA K 786.05 SHORTNESS OF BREATH 07/22/2009 CURRIE DO, AMELIA K 786.2 COUGH 07/22/2009 CURRIE DO, AMELIA K 786.05 SHORTNESS OF BREATH 07/22/2009 CURRIE DO, AMELIA K 786.2 COUGH 07/22/2009 MADL PAPER MILL MANAGER, JHONATAN L 786.05 SHORTNESS OF BREATH 07/22/2009 MADL PAPER MILL MANAGER, JHONATAN L 786.2 COUGH 07/22/2009 MADL PAPER MILL MANAGER, JHONATAN L 786.05 SHORTNESS OF BREATH 07/22/2009 MADL PAPER MILL MANAGER, JHONATAN L 786.2 COUGH 07/22/2009 MADL PAPER MILL MANAGER, JHONATAN L 786.05 SHORTNESS OF BREATH 07/22/2009 MADL PAPER MILL MANAGER, JHONATAN L 786.2 COUGH 07/22/2009 CURRIE DO, AMELIA K 786.05 SHORTNESS OF BREATH 07/22/2009 CURRIE DO, AMELIA K 786.2 COUGH 07/22/2009 MADL PAPER MILL MANAGER, JHONATAN L 786.05 SHORTNESS OF BREATH 07/22/2009 MADL PAPER MILL MANAGER, JHONATAN L 786.2 COUGH 07/22/2009 MADL PAPER MILL MANAGER, JHONATAN L 786.05 SHORTNESS OF BREATH 07/22/2009 MADL PAPER MILL MANAGER, JHONATAN L 786.2 COUGH 07/22/2009 MADL PAPER MILL MANAGER, JHONATAN L 786.05 SHORTNESS OF BREATH 07/22/2009 MADL PAPER MILL MANAGER, JHONATAN L 786.2 COUGH 07/22/2009 CURRIE DO, AMELIA K 786.05 SHORTNESS OF BREATH 07/22/2009 CURRIE DO, AMELIA K 786.2 COUGH 07/22/2009 MADL PAPER MILL MANAGER, JHONATAN L 786.05 SHORTNESS OF BREATH 07/22/2009 MADL PAPER MILL MANAGER, JHONATAN L 786.2 COUGH 07/22/2009 MADL PAPER MILL MANAGER, JHONATAN L 786.05 SHORTNESS OF BREATH 07/22/2009 MADL PAPER MILL MANAGER, JHONATAN L 786.2 COUGH 07/22/2009 MAVERICK PAPER MILL MANAGER, ZACHARIAH R 786.05 SHORTNESS OF BREATH 07/22/2009 MAVERICK PAPER MILL MANAGER, ZACHARIAH R 786.2 COUGH 07/22/2009 MADL PAPER MILL MANAGER, JHONATAN L 786.05 SHORTNESS OF BREATH 07/22/2009 MADL PAPER MILL MANAGER, JHONATAN L 786.2 COUGH 07/22/2009 MADL PAPER MILL MANAGER, JHONATAN L 786.05 SHORTNESS OF BREATH 07/22/2009 MADL PAPER MILL MANAGER, JHONATAN L 786.2 COUGH 07/22/2009 MADL PAPER MILL MANAGER, JHONATAN L 786.05 SHORTNESS OF BREATH 07/22/2009 MADL PAPER MILL MANAGER, JHONATAN L 786.2 COUGH 07/22/2009 MADL PAPER MILL MANAGER, JHONATAN L 786.05 SHORTNESS OF BREATH 07/22/2009 MADL PAPER MILL MANAGER, JHONATAN L 786.2 COUGH 07/22/2009 MADL PAPER MILL MANAGER, JHONATAN L 786.05 SHORTNESS OF BREATH 07/22/2009 MADL PAPER MILL MANAGER, JHONATAN L 786.2 COUGH 07/22/2009 MADL PAPER MILL MANAGER, JHONATAN L 786.05 SHORTNESS OF BREATH 07/22/2009 MADL PAPER MILL MANAGER, JHONATAN L 786.2 COUGH 07/22/2009 CURRIE DO, AMELIA K 786.05 SHORTNESS OF BREATH 07/22/2009 CURRIE DO, AMELIA K 786.2 COUGH 07/22/2009 MADL PAPER MILL MANAGER, JHONATAN L 786.05 SHORTNESS OF BREATH 07/22/2009 MADL PAPER MILL MANAGER, JHONATAN L 786.2 COUGH 07/22/2009 BLANCHE PAPER MILL MANAGER, BHARAT S 786.05 SHORTNESS OF BREATH 07/22/2009 BLANCHE PAPER MILL MANAGER, BHARAT S 786.2 COUGH 07/22/2009 786.05 SHORTNESS OF BREATH 07/22/2009 786.2 COUGH 07/22/2009 MAVERICK PAPER MILL MANAGER, ZACHARIAH R 786.05 SHORTNESS OF BREATH 07/22/2009 MAVERICK PAPER MILL MANAGER, ZACHARIAH R 786.2 COUGH 07/22/2009 ALMONTE DDS, SAE 786.05 SHORTNESS OF BREATH 07/22/2009 ALMONTE DDS, SAE 786.2 COUGH 07/31/2009 OK CHAVIS, MAGDALENA V72.31 BOILER FITTER EXAM, ROUTINE 07/31/2009 MAGDALENA EUCEDA MD V72.31 BOILER FITTER EXAM, ROUTINE 07/31/2009 MAGDALENA EUCEDA MD V72.31 BOILER FITTER EXAM, ROUTINE 07/31/2009 V72.31 BOILER FITTER EXAM, ROUTINE 07/31/2009 MAGDALENA EUCEDA MD V72.31 BOILER FITTER EXAM, ROUTINE 07/31/2009 V72.31 BOILER FITTER EXAM, ROUTINE 07/31/2009 V72.31 BOILER FITTER EXAM, ROUTINE 07/31/2009 V72.31 BOILER FITTER EXAM, ROUTINE 07/31/2009 V72.31 BOILER FITTER EXAM, ROUTINE 07/31/2009 V72.31 BOILER FITTER EXAM, ROUTINE 07/31/2009 V72.31 BOILER FITTER EXAM, ROUTINE 07/31/2009 V72.31 BOILER FITTER EXAM, ROUTINE 07/31/2009 V72.31 BOILER FITTER EXAM, ROUTINE 07/31/2009 FELIBERTO GARCIA APRN V72.31 BOILER FITTER EXAM, ROUTINE 07/31/2009 MAGDALENA EUCEDA MD V72.31 BOILER FITTER EXAM, ROUTINE 07/31/2009 MAGDALENA EUCEDA MD V72.31 BOILER FITTER EXAM, ROUTINE 07/31/2009 ALLI HUNT MD V72.31 BOILER FITTER EXAM, ROUTINE 07/31/2009 MAGDALENA EUCEDA MD V72.31 BOILER FITTER EXAM, ROUTINE 07/31/2009 CURRIE DO, AMELIA K V72.31 BOILER FITTER EXAM, ROUTINE 07/31/2009 CURRIE DO, AMELIA K V72.31 BOILER FITTER EXAM, ROUTINE 07/31/2009 CURRIE DO, AMELIA K V72.31 BOILER FITTER EXAM, ROUTINE 07/31/2009 CURRIE DO, AMELIA K V72.31 BOILER FITTER EXAM, ROUTINE 07/31/2009 CURRIE DO, AMELIA K V72.31 BOILER FITTER EXAM, ROUTINE 07/31/2009 CHARITY PAPER MILL MANAGER, MARCI A V72.31 BOILER FITTER EXAM, ROUTINE 07/31/2009 MADL PAPER MILL MANAGER, JHONATAN L V72.31 BOILER FITTER EXAM, ROUTINE 07/31/2009 V72.31 BOILER FITTER EXAM, ROUTINE 07/31/2009 CURRIE DO, AMELIA K V72.31 BOILER FITTER EXAM, ROUTINE 07/31/2009 CURRIE DO, AMELIA K V72.31 BOILER FITTER EXAM, ROUTINE 07/31/2009 MADL PAPER MILL MANAGER, JHONATAN L V72.31 BOILER FITTER EXAM, ROUTINE 07/31/2009 MADL PAPER MILL MANAGER, JHONATAN L V72.31 BOILER FITTER EXAM, ROUTINE 07/31/2009 MADL PAPER MILL MANAGER, JHONATAN L V72.31 BOILER FITTER EXAM, ROUTINE 07/31/2009 CURRIE DO, AMELIA K V72.31 BOILER FITTER EXAM, ROUTINE 07/31/2009 MADL PAPER MILL MANAGER, JHONATAN L V72.31 BOILER FITTER EXAM, ROUTINE 07/31/2009 MADL PAPER MILL MANAGER, JHONATAN L V72.31 BOILER FITTER EXAM, ROUTINE 07/31/2009 MADL PAPER MILL MANAGER, JHONATAN L V72.31 BOILER FITTER EXAM, ROUTINE 07/31/2009 CURRIE DO, AMELIA K V72.31 BOILER FITTER EXAM, ROUTINE 07/31/2009 MADL PAPER MILL MANAGER, JHONATAN L V72.31 BOILER FITTER EXAM, ROUTINE 07/31/2009 MADL PAPER MILL MANAGER, JHONATAN L V72.31 BOILER FITTER EXAM, ROUTINE 07/31/2009 MAVERICK PAPER MILL MANAGER, ZACHARIAH R V72.31 BOILER FITTER EXAM, ROUTINE 07/31/2009 MADL PAPER MILL MANAGER, JHONATAN L V72.31 BOILER FITTER EXAM, ROUTINE 07/31/2009 MADL PAPER MILL MANAGER, JHONATAN L V72.31 BOILER FITTER EXAM, ROUTINE 07/31/2009 MADL PAPER MILL MANAGER, JHONATAN L V72.31 BOILER FITTER EXAM, ROUTINE 07/31/2009 MADL PAPER MILL MANAGER, JHONATAN L V72.31 BOILER FITTER EXAM, ROUTINE 07/31/2009 MADL PAPER MILL MANAGER, JHONATAN L V72.31 BOILER FITTER EXAM, ROUTINE 07/31/2009 MADL PAPER MILL MANAGER, JHONATAN L V72.31 BOILER FITTER EXAM, ROUTINE 07/31/2009 CURRIE DO, AMELIA K V72.31 BOILER FITTER EXAM, ROUTINE 07/31/2009 KAYLIN PAPER MILL MANAGER, JHONATAN L V72.31 BOILER FITTER EXAM, ROUTINE 07/31/2009 BLANCHE FUCHS, BHARAT S V72.31 BOILER FITTER EXAM, ROUTINE 07/31/2009 V72.31 BOILER FITTER EXAM, ROUTINE 07/31/2009 MAVERICK FUCHS, ZACHARIAH R V72.31 BOILER FITTER EXAM, ROUTINE 07/31/2009 SUZY DDS, SAE V72.31 BOILER FITTER EXAM, ROUTINE 10/15/2009 MAGDALENA EUCEDA MD 719.08 Knee Swelling 10/15/2009 MAGDALENA EUCEDA MD 719.08 Knee Swelling 10/15/2009 MAGDALENA EUCEDA MD 719.08 Knee Swelling 10/15/2009 719.08 Knee Swelling 10/15/2009 MAGDALENA EUCEDA MD 719.08 Knee Swelling 10/15/2009 719.08 Knee Swelling 10/15/2009 719.08 Knee Swelling 10/15/2009 719.08 Knee Swelling 10/15/2009 719.08 Knee Swelling 10/15/2009 719.08 Knee Swelling 10/15/2009 719.08 Knee Swelling 10/15/2009 719.08 Knee Swelling 10/15/2009 719.08 Knee Swelling 10/15/2009 FELIBERTO GARCIA APRN 719.08 Knee Swelling 10/15/2009 MAGDALENA EUCEDA MD 719.08 Knee Swelling 10/15/2009 MAGDALENA EUCEDA MD 719.08 Knee Swelling 10/15/2009 ALLI HUNT MD 719.08 Knee Swelling 10/15/2009 MAGDALENA EUCEDA MD 719.08 Knee Swelling 10/15/2009 CURRIE DO, AMELIA K 719.08 KNEE SWELLING 10/15/2009 CURRIE DO, AMELIA K 719.08 KNEE SWELLING 10/15/2009 CURRIE DO, AMELIA K 719.08 KNEE SWELLING 10/15/2009 CURRIE DO, AMELIA K 719.08 KNEE SWELLING 10/15/2009 CURRIE DO, AMELIA K 719.08 KNEE SWELLING 10/15/2009 MARCI NASH APRN A 719.08 KNEE SWELLING 10/15/2009 MADL PAPER MILL MANAGER, JHONATAN L 719.08 KNEE SWELLING 10/15/2009 719.08 KNEE SWELLING 10/15/2009 CURRIE DO, AMELIA K 719.08 KNEE SWELLING 10/15/2009 CURRIE DO, AMELIA K 719.08 KNEE SWELLING 10/15/2009 MADL PAPER MILL MANAGER, JHONATAN L 719.08 KNEE SWELLING 10/15/2009 MADL PAPER MILL MANAGER, JHONATAN L 719.08 KNEE SWELLING 10/15/2009 MADL PAPER MILL MANAGER, JHONATAN L 719.08 KNEE SWELLING 10/15/2009 CURRIE DO, AMELIA K 719.08 KNEE SWELLING 10/15/2009 MADL PAPER MILL MANAGER, JHONATAN L 719.08 KNEE SWELLING 10/15/2009 MADL PAPER MILL MANAGER, JHONATAN L 719.08 KNEE SWELLING 10/15/2009 MADL PAPER MILL MANAGER, JHONATAN L 719.08 KNEE SWELLING 10/15/2009 CURRIE DO, AMELIA K 719.08 KNEE SWELLING 10/15/2009 MADL PAPER MILL MANAGER, JHONATAN L 719.08 KNEE SWELLING 10/15/2009 MADL PAPER MILL MANAGER, JHONATAN L 719.08 KNEE SWELLING 10/15/2009 MAVERICK PAPER MILL MANAGER, ZACHARIAH R 719.08 KNEE SWELLING 10/15/2009 MADL PAPER MILL MANAGER, JHONATAN L 719.08 KNEE SWELLING 10/15/2009 MADL PAPER MILL MANAGER, JHONATAN L 719.08 KNEE SWELLING 10/15/2009 MADL PAPER MILL MANAGER, JHONATAN L 719.08 KNEE SWELLING 10/15/2009 MADL PAPER MILL MANAGER, JHONATAN L 719.08 KNEE SWELLING 10/15/2009 MADL PAPER MILL MANAGER, JHONATAN L 719.08 KNEE SWELLING 10/15/2009 MADL PAPER MILL MANAGER, JHONATAN L 719.08 KNEE SWELLING 10/15/2009 CURRIE DO, AMELIA K 719.08 KNEE SWELLING 10/15/2009 MADL PAPER MILL MANAGER, JHONATAN L 719.08 KNEE SWELLING 10/15/2009 BLANCHE GUTIERREZN, BHARAT S 719.08 KNEE SWELLING 10/15/2009 719.08 KNEE SWELLING 10/15/2009 MAVERICK PAPER MILL MANAGER, ZACHARIAH R 719.08 KNEE SWELLING 10/15/2009 SAE ALMONET DDS 719.08 KNEE SWELLING 10/21/2009 MAGDALENA EUCEDA MD 719.46 PAIN IN JOINT, LOWER LEG 10/21/2009 MAGDALENA EUCEDA MD 719.46 PAIN IN JOINT, LOWER LEG 10/21/2009 MAGDALENA EUCEDA MD 719.46 PAIN IN JOINT, LOWER LEG 10/21/2009 719.46 PAIN IN JOINT, LOWER LEG 10/21/2009 MAGDALENA EUCEDA MD 719.46 PAIN IN JOINT, LOWER LEG 10/21/2009 719.46 PAIN IN JOINT, LOWER LEG 10/21/2009 719.46 PAIN IN JOINT, LOWER LEG 10/21/2009 719.46 PAIN IN JOINT, LOWER LEG 10/21/2009 719.46 PAIN IN JOINT, LOWER LEG 10/21/2009 719.46 PAIN IN JOINT, LOWER LEG 10/21/2009 719.46 PAIN IN JOINT, LOWER LEG 10/21/2009 719.46 PAIN IN JOINT, LOWER LEG 10/21/2009 719.46 PAIN IN JOINT, LOWER LEG 10/21/2009 FELIBERTO GARCIA APRN A 719.46 PAIN IN JOINT, LOWER LEG 10/21/2009 MAGDALENA EUCEDA MD 719.46 PAIN IN JOINT, LOWER LEG 10/21/2009 MAGDALENA EUCEDA MD 719.46 PAIN IN JOINT, LOWER LEG 10/21/2009 ALLI HUNT MD 719.46 PAIN IN JOINT, LOWER LEG 10/21/2009 MAGDALENA EUCEDA MD 719.46 PAIN IN JOINT, LOWER LEG 10/21/2009 CURRIE DO, AMELIA K 719.46 PAIN IN JOINT, LOWER LEG 10/21/2009 CURRIE DO, AMELIA K 719.46 PAIN IN JOINT, LOWER LEG 10/21/2009 CURRIE DO, AMELIA K 719.46 PAIN IN JOINT, LOWER LEG 10/21/2009 CURRIE DO, AMELIA K 719.46 PAIN IN JOINT, LOWER LEG 10/21/2009 CURRIE DO, AMELIA K 719.46 PAIN IN JOINT, LOWER LEG 10/21/2009 MARCI NASH APRN A 719.46 PAIN IN JOINT, LOWER LEG 10/21/2009 JHONATAN EWING APRN 719.46 PAIN IN JOINT, LOWER LEG 10/21/2009 719.46 PAIN IN JOINT, LOWER LEG 10/21/2009 CURRIE DO, AMELIA K 719.46 PAIN IN JOINT, LOWER LEG 10/21/2009 CURRIE DO, AMELIA K 719.46 PAIN IN JOINT, LOWER LEG 10/21/2009 MADL PAPER MILL MANAGER, JHONATAN L 719.46 PAIN IN JOINT, LOWER LEG 10/21/2009 MADL PAPER MILL MANAGER, JHONATAN L 719.46 PAIN IN JOINT, LOWER LEG 10/21/2009 MADL PAPER MILL MANAGER, JHONATAN L 719.46 PAIN IN JOINT, LOWER LEG 10/21/2009 CURRIE DO, AMELIA K 719.46 PAIN IN JOINT, LOWER LEG 10/21/2009 MADL PAPER MILL MANAGER, JHONATAN L 719.46 PAIN IN JOINT, LOWER LEG 10/21/2009 MADL PAPER MILL MANAGER, JHONATAN L 719.46 PAIN IN JOINT, LOWER LEG 10/21/2009 MADL PAPER MILL MANAGER, JHONATAN L 719.46 PAIN IN JOINT, LOWER LEG 10/21/2009 CURRIE DO, AMELIA K 719.46 PAIN IN JOINT, LOWER LEG 10/21/2009 MADL PAPER MILL MANAGER, JHONATAN L 719.46 PAIN IN JOINT, LOWER LEG 10/21/2009 MADL PAPER MILL MANAGER, JHONATAN L 719.46 PAIN IN JOINT, LOWER LEG 10/21/2009 MAVERICK PAPER MILL MANAGER, ZACHARIAH R 719.46 PAIN IN JOINT, LOWER LEG 10/21/2009 MADL PAPER MILL MANAGER, JHONATAN L 719.46 PAIN IN JOINT, LOWER LEG 10/21/2009 MADL PAPER MILL MANAGER, JHONATAN L 719.46 PAIN IN JOINT, LOWER LEG 10/21/2009 MADL PAPER MILL MANAGER, JHONATAN L 719.46 PAIN IN JOINT, LOWER LEG 10/21/2009 MADL PAPER MILL MANAGER, JHONATAN L 719.46 PAIN IN JOINT, LOWER LEG 10/21/2009 MADL PAPER MILL MANAGER, JHONATAN L 719.46 PAIN IN JOINT, LOWER LEG 10/21/2009 MADL PAPER MILL MANAGER, JHONATAN L 719.46 PAIN IN JOINT, LOWER LEG 10/21/2009 CURRIE DO, AMELIA K 719.46 PAIN IN JOINT, LOWER LEG 10/21/2009 MADL PAPER MILL MANAGER, JHONATAN L 719.46 PAIN IN JOINT, LOWER LEG 10/21/2009 BLANCHE FUCHS, BHARAT S 719.46 PAIN IN JOINT, LOWER LEG 10/21/2009 719.46 PAIN IN JOINT, LOWER LEG 10/21/2009 MAVERICK FUCHS, ZACHARIAH R 719.46 PAIN IN JOINT, LOWER LEG 10/21/2009 SUZY SIMMSS, SAE 719.46 PAIN IN JOINT, LOWER LEG 11/06/2009 MAGDALENA EUCEDA MD 715.16 OSTEOARTHROSIS, LOCALIZED, PRIMARY, LOWER LEG 11/06/2009 MAGDALENA EUCEDA MD 715.16 OSTEOARTHROSIS, LOCALIZED, PRIMARY, LOWER LEG 11/06/2009 MAGDALENA EUCEDA MD 715.16 OSTEOARTHROSIS, LOCALIZED, PRIMARY, LOWER LEG 11/06/2009 715.16 OSTEOARTHROSIS, LOCALIZED, PRIMARY, LOWER LEG 11/06/2009 MAGDALENA EUCEDA MD 715.16 OSTEOARTHROSIS, LOCALIZED, PRIMARY, LOWER LEG 11/06/2009 715.16 OSTEOARTHROSIS, LOCALIZED, PRIMARY, LOWER LEG 11/06/2009 715.16 OSTEOARTHROSIS, LOCALIZED, PRIMARY, LOWER LEG 11/06/2009 715.16 OSTEOARTHROSIS, LOCALIZED, PRIMARY, LOWER LEG 11/06/2009 715.16 OSTEOARTHROSIS, LOCALIZED, PRIMARY, LOWER LEG 11/06/2009 715.16 OSTEOARTHROSIS, LOCALIZED, PRIMARY, LOWER LEG 11/06/2009 715.16 OSTEOARTHROSIS, LOCALIZED, PRIMARY, LOWER LEG 11/06/2009 715.16 OSTEOARTHROSIS, LOCALIZED, PRIMARY, LOWER LEG 11/06/2009 715.16 OSTEOARTHROSIS, LOCALIZED, PRIMARY, LOWER LEG 11/06/2009 FELIBERTO GARCIA APRN 715.16 OSTEOARTHROSIS, LOCALIZED, PRIMARY, LOWER LEG 11/06/2009 MAGDALENA EUCEDA MD 715.16 OSTEOARTHROSIS, LOCALIZED, PRIMARY, LOWER LEG 11/06/2009 MAGDALENA EUCEDA MD 715.16 OSTEOARTHROSIS, LOCALIZED, PRIMARY, LOWER LEG 11/06/2009 MARILEE CHAVIS, ALLI Shirley 715.16 OSTEOARTHROSIS, LOCALIZED, PRIMARY, LOWER LEG 11/06/2009 MAGDALENA EUCEDA MD 715.16 OSTEOARTHROSIS, LOCALIZED, PRIMARY, LOWER LEG 11/06/2009 CURRIE DO, AMELIA K 715.16 OSTEOARTHROSIS, LOCALIZED, PRIMARY, LOWER LEG 11/06/2009 CURRIE DO, AMELIA K 715.16 OSTEOARTHROSIS, LOCALIZED, PRIMARY, LOWER LEG 11/06/2009 CURRIE DO, AMELIA K 715.16 OSTEOARTHROSIS, LOCALIZED, PRIMARY, LOWER LEG 11/06/2009 CURRIE DO, AMELIA K 715.16 OSTEOARTHROSIS, LOCALIZED, PRIMARY, LOWER LEG 11/06/2009 CURRIE DO, AMELIA K 715.16 OSTEOARTHROSIS, LOCALIZED, PRIMARY, LOWER LEG 11/06/2009 CHARITY PAPER MILL MANAGER, MARCI A 715.16 OSTEOARTHROSIS, LOCALIZED, PRIMARY, LOWER LEG 11/06/2009 MADL PAPER MILL MANAGER, JHONATAN L 715.16 OSTEOARTHROSIS, LOCALIZED, PRIMARY, LOWER LEG 11/06/2009 715.16 OSTEOARTHROSIS, LOCALIZED, PRIMARY, LOWER LEG 11/06/2009 CURRIE DO, AMELIA K 715.16 OSTEOARTHROSIS, LOCALIZED, PRIMARY, LOWER LEG 11/06/2009 CURRIE DO, AMELIA K 715.16 OSTEOARTHROSIS, LOCALIZED, PRIMARY, LOWER LEG 11/06/2009 MADL PAPER MILL MANAGER, JHONATAN L 715.16 OSTEOARTHROSIS, LOCALIZED, PRIMARY, LOWER LEG 11/06/2009 MADL PAPER MILL MANAGER, JHONATAN L 715.16 OSTEOARTHROSIS, LOCALIZED, PRIMARY, LOWER LEG 11/06/2009 MADL PAPER MILL MANAGER, JHONATAN L 715.16 OSTEOARTHROSIS, LOCALIZED, PRIMARY, LOWER LEG 11/06/2009 CURRIE DO, AMELIA K 715.16 OSTEOARTHROSIS, LOCALIZED, PRIMARY, LOWER LEG 11/06/2009 MADL PAPER MILL MANAGER, JHONATAN L 715.16 OSTEOARTHROSIS, LOCALIZED, PRIMARY, LOWER LEG 11/06/2009 MADL PAPER MILL MANAGER, JHONATAN L 715.16 OSTEOARTHROSIS, LOCALIZED, PRIMARY, LOWER LEG 11/06/2009 MADL PAPER MILL MANAGER, JHONATAN L 715.16 OSTEOARTHROSIS, LOCALIZED, PRIMARY, LOWER LEG 11/06/2009 CURRIE DO, AMELIA K 715.16 OSTEOARTHROSIS, LOCALIZED, PRIMARY, LOWER LEG 11/06/2009 MADL PAPER MILL MANAGER, JHONATAN L 715.16 OSTEOARTHROSIS, LOCALIZED, PRIMARY, LOWER LEG 11/06/2009 MADL PAPER MILL MANAGER, JHONATAN L 715.16 OSTEOARTHROSIS, LOCALIZED, PRIMARY, LOWER LEG 11/06/2009 MAVERICK GUTIERREZN, ZACHARIAH R 715.16 OSTEOARTHROSIS, LOCALIZED, PRIMARY, LOWER LEG 11/06/2009 MADL PAPER MILL MANAGER, JHONATAN L 715.16 OSTEOARTHROSIS, LOCALIZED, PRIMARY, LOWER LEG 11/06/2009 MADL PAPER MILL MANAGER, JHONATAN L 715.16 OSTEOARTHROSIS, LOCALIZED, PRIMARY, LOWER LEG 11/06/2009 MADL PAPER MILL MANAGER, JHONATAN L 715.16 OSTEOARTHROSIS, LOCALIZED, PRIMARY, LOWER LEG 11/06/2009 MADL PAPER MILL MANAGER, JHONATAN L 715.16 OSTEOARTHROSIS, LOCALIZED, PRIMARY, LOWER LEG 11/06/2009 MADL PAPER MILL MANAGER, JHONATAN L 715.16 OSTEOARTHROSIS, LOCALIZED, PRIMARY, LOWER LEG 11/06/2009 MADL PAPER MILL MANAGER, JHONATAN L 715.16 OSTEOARTHROSIS, LOCALIZED, PRIMARY, LOWER LEG 11/06/2009 AMELIA CURRIE DO K 715.16 OSTEOARTHROSIS, LOCALIZED, PRIMARY, LOWER LEG 11/06/2009 MADL PAPER MILL MANAGER, JHONATAN L 715.16 OSTEOARTHROSIS, LOCALIZED, PRIMARY, LOWER LEG 11/06/2009 BLANCHE FUCHS, BHARAT S 715.16 OSTEOARTHROSIS, LOCALIZED, PRIMARY, LOWER LEG 11/06/2009 715.16 OSTEOARTHROSIS, LOCALIZED, PRIMARY, LOWER LEG 11/06/2009 MAVERICK GUTIERREZN, ZACHARIAH R 715.16 OSTEOARTHROSIS, LOCALIZED, PRIMARY, LOWER LEG 11/06/2009 SUZY GRANADOS, SAE 715.16 OSTEOARTHROSIS, LOCALIZED, PRIMARY, LOWER LEG 11/25/2009 Ot 493.90 11/25/2009 Ot 530.81 11/25/2009 Ot 719.46 11/25/2009 Ot V43.3 11/25/2009 Ot V45.81 11/25/2009 Ot V57.1 12/03/2009 OK CHAVIS, MAGDALENA 491.21 OBSTRUCTIVE CHRONIC BRONCHITIS, WITH (ACUTE ) EXACERBATION 12/03/2009 MAGDALENA EUCEDA MD1.21 OBSTRUCTIVE CHRONIC BRONCHITIS, WITH (ACUTE ) EXACERBATION 12/03/2009 MAGDALENA EUCEDA MD 491.21 OBSTRUCTIVE CHRONIC BRONCHITIS, WITH (ACUTE ) EXACERBATION 12/03/2009 491.21 OBSTRUCTIVE CHRONIC BRONCHITIS, WITH (ACUTE) EXACERBATION 12/03/2009 MAGDALENA EUCEDA MD 491.21 OBSTRUCTIVE CHRONIC BRONCHITIS, WITH (ACUTE ) EXACERBATION 12/03/2009 491.21 OBSTRUCTIVE CHRONIC BRONCHITIS, WITH (ACUTE) EXACERBATION 12/03/2009 491.21 OBSTRUCTIVE CHRONIC BRONCHITIS, WITH (ACUTE) EXACERBATION 12/03/2009 491.21 OBSTRUCTIVE CHRONIC BRONCHITIS, WITH (ACUTE) EXACERBATION 12/03/2009 491.21 OBSTRUCTIVE CHRONIC BRONCHITIS, WITH (ACUTE) EXACERBATION 12/03/2009 491.21 OBSTRUCTIVE CHRONIC BRONCHITIS, WITH (ACUTE) EXACERBATION 12/03/2009 491.21 OBSTRUCTIVE CHRONIC BRONCHITIS, WITH (ACUTE) EXACERBATION 12/03/2009 491.21 OBSTRUCTIVE CHRONIC BRONCHITIS, WITH (ACUTE) EXACERBATION 12/03/2009 491.21 OBSTRUCTIVE CHRONIC BRONCHITIS, WITH (ACUTE) EXACERBATION 12/03/2009 FELIBERTO GARCIA APRN A 491.21 OBSTRUCTIVE CHRONIC BRONCHITIS, WITH ( ACUTE) EXACERBATION 12/03/2009 MAGDALENA EUCEDA MD 491.21 OBSTRUCTIVE CHRONIC BRONCHITIS, WITH (ACUTE ) EXACERBATION 12/03/2009 MAGDALENA EUCEDA MD 491.21 OBSTRUCTIVE CHRONIC BRONCHITIS, WITH (ACUTE ) EXACERBATION 12/03/2009 ALLI HUNT MD 491.21 OBSTRUCTIVE CHRONIC BRONCHITIS, WITH ( ACUTE) EXACERBATION 12/03/2009 MAGDALENA EUCEDA MD 491.21 OBSTRUCTIVE CHRONIC BRONCHITIS, WITH (ACUTE ) EXACERBATION 12/03/2009 CURRIE DO, AMELIA K 491.21 OBSTRUCTIVE CHRONIC BRONCHITIS, WITH (ACUTE) EXACERBATION 12/03/2009 CURRIE DO, AMELIA K 491.21 OBSTRUCTIVE CHRONIC BRONCHITIS, WITH (ACUTE) EXACERBATION 12/03/2009 CURRIE DO, AMELIA K 491.21 OBSTRUCTIVE CHRONIC BRONCHITIS, WITH (ACUTE) EXACERBATION 12/03/2009 CURRIE DO, AMELIA K 491.21 OBSTRUCTIVE CHRONIC BRONCHITIS, WITH (ACUTE) EXACERBATION 12/03/2009 CURRIE DO, AMELIA K 491.21 OBSTRUCTIVE CHRONIC BRONCHITIS, WITH (ACUTE) EXACERBATION 12/03/2009 CHARITY FUCHS MARCI A 491.21 OBSTRUCTIVE CHRONIC BRONCHITIS, WITH ( ACUTE) EXACERBATION 12/03/2009 JHONATAN EWING APRN 491.21 OBSTRUCTIVE CHRONIC BRONCHITIS, WITH ( ACUTE) EXACERBATION 12/03/2009 491.21 OBSTRUCTIVE CHRONIC BRONCHITIS, WITH (ACUTE) EXACERBATION 12/03/2009 CURRIE DO, AMELIA K 491.21 OBSTRUCTIVE CHRONIC BRONCHITIS, WITH (ACUTE) EXACERBATION 12/03/2009 CURRIE DO, AMELIA K 491.21 OBSTRUCTIVE CHRONIC BRONCHITIS, WITH (ACUTE) EXACERBATION 12/03/2009 MADL PAPER MILL MANAGER, JHONATAN L 491.21 OBSTRUCTIVE CHRONIC BRONCHITIS, WITH ( ACUTE) EXACERBATION 12/03/2009 MADL PAPER MILL MANAGER, JHONATAN L 491.21 OBSTRUCTIVE CHRONIC BRONCHITIS, WITH ( ACUTE) EXACERBATION 12/03/2009 MADL PAPER MILL MANAGER, JHONATAN L 491.21 OBSTRUCTIVE CHRONIC BRONCHITIS, WITH ( ACUTE) EXACERBATION 12/03/2009 CURRIE DO, AMELIA K 491.21 OBSTRUCTIVE CHRONIC BRONCHITIS, WITH (ACUTE) EXACERBATION 12/03/2009 MADL PAPER MILL MANAGER, JHONATAN L 491.21 OBSTRUCTIVE CHRONIC BRONCHITIS, WITH ( ACUTE) EXACERBATION 12/03/2009 MADL PAPER MILL MANAGER, JHONATAN L 491.21 OBSTRUCTIVE CHRONIC BRONCHITIS, WITH ( ACUTE) EXACERBATION 12/03/2009 MADL PAPER MILL MANAGER, JHONATAN L 491.21 OBSTRUCTIVE CHRONIC BRONCHITIS, WITH ( ACUTE) EXACERBATION 12/03/2009 CURRIE DO, AMELIA K 491.21 OBSTRUCTIVE CHRONIC BRONCHITIS, WITH (ACUTE) EXACERBATION 12/03/2009 MADL PAPER MILL MANAGER, JHONATAN L 491.21 OBSTRUCTIVE CHRONIC BRONCHITIS, WITH ( ACUTE) EXACERBATION 12/03/2009 MADL PAPER MILL MANAGER, JHONATAN L 491.21 OBSTRUCTIVE CHRONIC BRONCHITIS, WITH ( ACUTE) EXACERBATION 12/03/2009 MAVERICK PAPER MILL MANAGER, ZACHARIAH R 491.21 OBSTRUCTIVE CHRONIC BRONCHITIS, WITH ( ACUTE) EXACERBATION 12/03/2009 MADL PAPER MILL MANAGER, JHONATAN L 491.21 OBSTRUCTIVE CHRONIC BRONCHITIS, WITH ( ACUTE) EXACERBATION 12/03/2009 MADL PAPER MILL MANAGER, JHONATAN L 491.21 OBSTRUCTIVE CHRONIC BRONCHITIS, WITH ( ACUTE) EXACERBATION 12/03/2009 MADL PAPER MILL MANAGER, JHONATAN L 491.21 OBSTRUCTIVE CHRONIC BRONCHITIS, WITH ( ACUTE) EXACERBATION 12/03/2009 MADL PAPER MILL MANAGER, JHONATAN L 491.21 OBSTRUCTIVE CHRONIC BRONCHITIS, WITH ( ACUTE) EXACERBATION 12/03/2009 MADL PAPER MILL MANAGER, JHONATAN L 491.21 OBSTRUCTIVE CHRONIC BRONCHITIS, WITH ( ACUTE) EXACERBATION 12/03/2009 MADL PAPER MILL MANAGER, JHONATAN L 491.21 OBSTRUCTIVE CHRONIC BRONCHITIS, WITH ( ACUTE) EXACERBATION 12/03/2009 ROSEY DO, AMELIA K 491.21 OBSTRUCTIVE CHRONIC BRONCHITIS, WITH (ACUTE) EXACERBATION 12/03/2009 MADL PAPER MILL MANAGER, JHONATAN L 491.21 OBSTRUCTIVE CHRONIC BRONCHITIS, WITH ( ACUTE) EXACERBATION 12/03/2009 BLANCHE PAPER MILL MANAGER, BHARAT S 491.21 OBSTRUCTIVE CHRONIC BRONCHITIS, WITH ( ACUTE) EXACERBATION 12/03/2009 491.21 OBSTRUCTIVE CHRONIC BRONCHITIS, WITH (ACUTE) EXACERBATION 12/03/2009 MAVERICK PAPER MILL MANAGER, ZACHARIAH R 491.21 OBSTRUCTIVE CHRONIC BRONCHITIS, WITH ( ACUTE) EXACERBATION 12/03/2009 SAE ALMONTE DDS 491.21 OBSTRUCTIVE CHRONIC BRONCHITIS, WITH ( ACUTE) EXACERBATION 01/01/2010 MAGDALENA EUCEDA MD 477.9 ALLERGIC RHINITIS, CAUSE UNSPECIFIED 01/01/2010 MAGDALENA EUCEDA MD 477.9 ALLERGIC RHINITIS, CAUSE UNSPECIFIED 01/01/2010 MAGDALENA EUCEDA MD 477.9 ALLERGIC RHINITIS, CAUSE UNSPECIFIED 01/01/2010 477.9 ALLERGIC RHINITIS, CAUSE UNSPECIFIED 01/01/2010 MAGDALENA EUCEDA MD 477.9 ALLERGIC RHINITIS, CAUSE UNSPECIFIED 01/01/2010 477.9 HAY FEVER 01/01/2010 477.9 HAY FEVER 01/01/2010 477.9 ALLERGIC RHINITIS 01/01/2010 477.9 ALLERGIC RHINITIS 01/01/2010 477.9 ALLERGIC RHINITIS 01/01/2010 477.9 ALLERGIC RHINITIS 01/01/2010 477.9 ALLERGIC RHINITIS 01/01/2010 477.9 ALLERGIC RHINITIS 01/01/2010 FELIBERTO GARCIA APRN 477.9 ALLERGIC RHINITIS 01/01/2010 MAGDALENA EUCEDA MD7.9 ALLERGIC RHINITIS 01/01/2010 MAGDALNEA EUCEDA MD 477.9 ALLERGIC RHINITIS 01/01/2010 ALLI HUNT MD 477.9 ALLERGIC RHINITIS 01/01/2010 MAGDALENA EUCEDA MD 477.9 ALLERGIC RHINITIS, CAUSE UNSPECIFIED 01/01/2010 AMELIA UCRRIE DO 477.9 ALLERGIC RHINITIS 01/01/2010 AMELIA CURRIE DO 477.9 ALLERGIC RHINITIS 01/01/2010 CURRIE DO, AMELIA K 477.9 ALLERGIC RHINITIS 01/01/2010 CURRIE DO, AMELIA K 477.9 ALLERGIC RHINITIS 01/01/2010 CRURIE DO, AMELIA K 477.9 ALLERGIC RHINITIS 01/01/2010 CHARITY PAPER MILL MANAGER, MARCI A 477.9 ALLERGIC RHINITIS 01/01/2010 MADL PAPER MILL MANAGER, JHONATAN L 477.9 ALLERGIC RHINITIS 01/01/2010 477.9 ALLERGIC RHINITIS 01/01/2010 CURRIE DO, AMELIA K 477.9 ALLERGIC RHINITIS 01/01/2010 CURRIE DO, AMELIA K 477.9 ALLERGIC RHINITIS 01/01/2010 MADL PAPER MILL MANAGER, JHONATAN L 477.9 ALLERGIC RHINITIS 01/01/2010 MADL PAPER MILL MANAGER, JHONATAN L 477.9 ALLERGIC RHINITIS 01/01/2010 MADL PAPER MILL MANAGER, JHONATAN L 477.9 ALLERGIC RHINITIS 01/01/2010 CURRIE DO, AMELIA K 477.9 ALLERGIC RHINITIS 01/01/2010 MADL PAPER MILL MANAGER, JHONATAN L 477.9 ALLERGIC RHINITIS 01/01/2010 MADL PAPER MILL MANAGER, JHONATAN L 477.9 ALLERGIC RHINITIS 01/01/2010 MADL PAPER MILL MANAGER, JHONATAN L 477.9 ALLERGIC RHINITIS 01/01/2010 CURRIE DO, AMELIA K 477.9 ALLERGIC RHINITIS 01/01/2010 MADL PAPER MILL MANAGER, JHONATAN L 477.9 ALLERGIC RHINITIS 01/01/2010 MADL PAPER MILL MANAGER, JHONATAN L 477.9 ALLERGIC RHINITIS 01/01/2010 MAVERICK PAPER MILL MANAGER, ZACHARIAH R 477.9 ALLERGIC RHINITIS 01/01/2010 MADL PAPER MILL MANAGER, JHONATAN L 477.9 ALLERGIC RHINITIS 01/01/2010 MADL PAPER MILL MANAGER, JHONATAN L 477.9 ALLERGIC RHINITIS 01/01/2010 MADL PAPER MILL MANAGER, JHONATAN L 477.9 ALLERGIC RHINITIS 01/01/2010 MADL PAPER MILL MANAGER, JHONATAN L 477.9 ALLERGIC RHINITIS 01/01/2010 MADL PAPER MILL MANAGER, JHONATAN L 477.9 ALLERGIC RHINITIS 01/01/2010 MADL PAPER MILL MANAGER, JHONATAN L 477.9 ALLERGIC RHINITIS 01/01/2010 CURRIE DO, AMELIA K 477.9 ALLERGIC RHINITIS 01/01/2010 MADL PAPER MILL MANAGER, JHONATAN L 477.9 ALLERGIC RHINITIS 01/01/2010 BLANCHE PAPER MILL MANAGER, BHARAT S 477.9 ALLERGIC RHINITIS 01/01/2010 477.9 ALLERGIC RHINITIS 01/01/2010 MAVERICK PAPER MILL MANAGER, ZACHARIAH R 477.9 ALLERGIC RHINITIS 01/01/2010 ALMONTE DDS, SAE 477.9 ALLERGIC RHINITIS 01/27/2010 MAGDALENA EUCEDA MD 611.72 LUMP OR MASS IN BREAST 01/27/2010 MAGDALENA EUCEDA MD 611.72 LUMP OR MASS IN BREAST 01/27/2010 MAGDALENA EUCEDA MD 611.72 LUMP OR MASS IN BREAST 01/27/2010 611.72 LUMP OR MASS IN BREAST 01/27/2010 MAGDALENA EUCEDA MD 611.72 LUMP OR MASS IN BREAST 01/27/2010 611.72 LUMP OR MASS IN BREAST 01/27/2010 611.72 LUMP OR MASS IN BREAST 01/27/2010 611.72 LUMP OR MASS IN BREAST 01/27/2010 611.72 LUMP OR MASS IN BREAST 01/27/2010 611.72 LUMP OR MASS IN BREAST 01/27/2010 611.72 LUMP OR MASS IN BREAST 01/27/2010 611.72 LUMP OR MASS IN BREAST 01/27/2010 611.72 LUMP OR MASS IN BREAST 01/27/2010 RADHA FUCHS, FELIBERTO Gonsales 611.72 LUMP OR MASS IN BREAST 01/27/2010 MAGDALENA EUCEDA MD 611.72 LUMP OR MASS IN BREAST 01/27/2010 MAGDALENA EUCEDA MD 611.72 LUMP OR MASS IN BREAST 01/27/2010 ALLI HUNT MD 611.72 LUMP OR MASS IN BREAST 01/27/2010 MAGDALENA EUCEDA MD 611.72 LUMP OR MASS IN BREAST 01/27/2010 CURRIE DOAMELIA K 611.72 LUMP OR MASS IN BREAST 01/27/2010 CURRIE DOAMELIA K 611.72 LUMP OR MASS IN BREAST 01/27/2010 CURRIE DORICHAA K 611.72 LUMP OR MASS IN BREAST 01/27/2010 CURRIE DORICHAA K 611.72 LUMP OR MASS IN BREAST 01/27/2010 CURRIE DO, AMELIA K 611.72 LUMP OR MASS IN BREAST 01/27/2010 CHARITY PAPER MILL MANAGER, MARCI A 611.72 LUMP OR MASS IN BREAST 01/27/2010 MADL PAPER MILL MANAGER, JHONATAN L 611.72 LUMP OR MASS IN BREAST 01/27/2010 611.72 LUMP OR MASS IN BREAST 01/27/2010 CURRIE DO, AMELIA K 611.72 LUMP OR MASS IN BREAST 01/27/2010 CURRIE DO, AMELIA K 611.72 LUMP OR MASS IN BREAST 01/27/2010 MADL PAPER MILL MANAGER, JHONATAN L 611.72 LUMP OR MASS IN BREAST 01/27/2010 MADL PAPER MILL MANAGER, JHONATAN L 611.72 LUMP OR MASS IN BREAST 01/27/2010 MADL PAPER MILL MANAGER, JHONATAN L 611.72 LUMP OR MASS IN BREAST 01/27/2010 CURRIE DO AMELIA K 611.72 LUMP OR MASS IN BREAST 01/27/2010 MADL PAPER MILL MANAGER, JHONATAN L 611.72 LUMP OR MASS IN BREAST 01/27/2010 MADL PAPER MILL MANAGER, JHONATAN L 611.72 LUMP OR MASS IN BREAST 01/27/2010 MADL PAPER MILL MANAGER, JHONATAN L 611.72 LUMP OR MASS IN BREAST 01/27/2010 CURRIE DO, AMELIA K 611.72 LUMP OR MASS IN BREAST 01/27/2010 MADL PAPER MILL MANAGER, JHONATAN L 611.72 LUMP OR MASS IN BREAST 01/27/2010 MADL PAPER MILL MANAGER, JHONATAN L 611.72 LUMP OR MASS IN BREAST 01/27/2010 MAVERICK PAPER MILL MANAGER ZACHARIAH R 611.72 LUMP OR MASS IN BREAST 01/27/2010 MADL PAPER MILL MANAGER, JHONATAN L 611.72 LUMP OR MASS IN BREAST 01/27/2010 MADL PAPER MILL MANAGER, JHONATAN L 611.72 LUMP OR MASS IN BREAST 01/27/2010 MADL PAPER MILL MANAGER, JHONATAN L 611.72 LUMP OR MASS IN BREAST 01/27/2010 MADL PAPER MILL MANAGER, JHONATAN L 611.72 LUMP OR MASS IN BREAST 01/27/2010 MADL PAPER MILL MANAGER, JHONATAN L 611.72 LUMP OR MASS IN BREAST 01/27/2010 MADL PAPER MILL MANAGER, JHONATAN L 611.72 LUMP OR MASS IN BREAST 01/27/2010 CURRIE DOAMELIA K 611.72 LUMP OR MASS IN BREAST 01/27/2010 MADL PAPER MILL MANAGER, JHONATAN L 611.72 LUMP OR MASS IN BREAST 01/27/2010 BLANCHE PAPER MILL MANAGER, BHARAT S 611.72 LUMP OR MASS IN BREAST 01/27/2010 611.72 LUMP OR MASS IN BREAST 01/27/2010 MAVERICK PAPER MILL MANAGER, ZACHARIAH R 611.72 LUMP OR MASS IN BREAST 01/27/2010 SUZY DDS, SAE 611.72 LUMP OR MASS IN BREAST 05/13/2010 MAGDALENA EUCEDA MD 724.5 BACKACHE UNSPECIFIED 05/13/2010 MAGDALENA EUCEDA MD 788.41 urinary frequency increased 05/13/2010 MAGDALENA EUCEDA MD 724.5 BACKACHE 05/13/2010 MAGDALENA EUCEDA MD 788.41 urinary frequency increased 05/13/2010 MAGDALENA EUCEDA MD 724.5 BACKACHE 05/13/2010 MAGDALENA EUCEDA MD 788.41 urinary frequency increased 05/13/2010 724.5 BACKACHE 05/13/2010 788.41 urinary frequency increased 05/13/2010 MAGDALENA EUCEDA MD 724.5 BACKACHE 05/13/2010 MAGDALENA EUCEDA MD 788.41 urinary frequency increased 05/13/2010 724.5 BACKACHE 05/13/2010 788.41 urinary frequency increased 05/13/2010 724.5 BACKACHE 05/13/2010 788.41 urinary frequency increased 05/13/2010 724.5 BACKACHE 05/13/2010 788.41 urinary frequency increased 05/13/2010 724.5 BACKACHE 05/13/2010 788.41 urinary frequency increased 05/13/2010 724.5 BACKACHE 05/13/2010 788.41 urinary frequency increased 05/13/2010 724.5 BACKACHE 05/13/2010 788.41 urinary frequency increased 05/13/2010 724.5 BACKACHE 05/13/2010 788.41 urinary frequency increased 05/13/2010 724.5 BACKACHE 05/13/2010 788.41 urinary frequency increased 05/13/2010 RAJOTTE PAPER MILL MANAGER, FELIBERTO A 724.5 BACKACHE 05/13/2010 RAJOTTE PAPER MILL MANAGER, FELIBERTO A 788.41 urinary frequency increased 05/13/2010 MAGDALENA EUCEDA MD 724.5 BACKACHE 05/13/2010 MAGDALENA EUCEDA MD 788.41 urinary frequency increased 05/13/2010 MAGDALENA EUCEDA MD 724.5 BACKACHE 05/13/2010 MAGDALENA EUCEDA MD 788.41 urinary frequency increased 05/13/2010 ALLI HUNT MD 724.5 BACKACHE 05/13/2010 ALLI HUNT MD 788.41 urinary frequency increased 05/13/2010 MAGDALENA EUCEDA MD 724.5 BACKACHE UNSPECIFIED 05/13/2010 MAGDALENA EUCEDA MD 788.41 urinary frequency increased 05/13/2010 CURRIE DO, AMELIA K 724.5 BACKACHE 05/13/2010 CURRIE DO, AMELIA K 788.41 URINARY FREQUENCY INCREASED 05/13/2010 CURRIE DO, AMELIA K 724.5 BACKACHE 05/13/2010 CURRIE DO, AEMLIA K 788.41 URINARY FREQUENCY INCREASED 05/13/2010 CURRIE DO, AMELIA K 724.5 BACKACHE 05/13/2010 CURRIE DO, AMELIA K 788.41 URINARY FREQUENCY INCREASED 05/13/2010 CURRIE DO, AMELIA K 724.5 BACKACHE 05/13/2010 CURRIE DO, AMELIA K 788.41 URINARY FREQUENCY INCREASED 05/13/2010 CURRIE DO, AMELIA K 724.5 BACKACHE 05/13/2010 CURRIE DO, AMELIA K 788.41 URINARY FREQUENCY INCREASED 05/13/2010 CHARITY PAPER MILL MANAGER, MARCI A 724.5 BACKACHE 05/13/2010 CHARITY PAPER MILL MANAGER, MARCI A 788.41 URINARY FREQUENCY INCREASED 05/13/2010 MADL PAPER MILL MANAGER, JHONATAN L 724.5 BACKACHE 05/13/2010 MADL PAPER MILL MANAGER, JHONATAN L 788.41 URINARY FREQUENCY INCREASED 05/13/2010 724.5 BACKACHE 05/13/2010 788.41 URINARY FREQUENCY INCREASED 05/13/2010 CURRIE DO, AMELIA K 724.5 BACKACHE 05/13/2010 CURRIE DO, AMELIA K 788.41 URINARY FREQUENCY INCREASED 05/13/2010 CURRIE DO, AMELIA K 724.5 BACKACHE 05/13/2010 CURRIE DO, AMELIA K 788.41 URINARY FREQUENCY INCREASED 05/13/2010 MADL PAPER MILL MANAGER, JHONATAN L 724.5 BACKACHE 05/13/2010 MADL PAPER MILL MANAGER, JHNOATAN L 788.41 URINARY FREQUENCY INCREASED 05/13/2010 MADL PAPER MILL MANAGER, JHONATAN L 724.5 BACKACHE 05/13/2010 MADL PAPER MILL MANAGER, JHONATAN L 788.41 URINARY FREQUENCY INCREASED 05/13/2010 MADL PAPER MILL MANAGER, JHONATAN L 724.5 BACKACHE 05/13/2010 MADL PAPER MILL MANAGER, JHONATAN L 788.41 URINARY FREQUENCY INCREASED 05/13/2010 CURRIE DO, AMELIA K 724.5 BACKACHE 05/13/2010 CURRIE DO, AMELIA K 788.41 URINARY FREQUENCY INCREASED 05/13/2010 MADL PAPER MILL MANAGER, JHONATAN L 724.5 BACKACHE 05/13/2010 MADL PAPER MILL MANAGER, JHONATAN L 788.41 URINARY FREQUENCY INCREASED 05/13/2010 MADL PAPER MILL MANAGER, JHONATAN L 724.5 BACKACHE 05/13/2010 MADL PAPER MILL MANAGER, JHONATAN L 788.41 URINARY FREQUENCY INCREASED 05/13/2010 MADL PAPER MILL MANAGER, JHONATAN L 724.5 BACKACHE 05/13/2010 MADL PAPER MILL MANAGER, JHONATAN L 788.41 URINARY FREQUENCY INCREASED 05/13/2010 CURRIE DO, AMELIA K 724.5 BACKACHE 05/13/2010 CURRIE DO, AMELIA K 788.41 URINARY FREQUENCY INCREASED 05/13/2010 MADL PAPER MILL MANAGER, JHONATAN L 724.5 BACKACHE 05/13/2010 MADL PAPER MILL MANAGER, JHONATAN L 788.41 URINARY FREQUENCY INCREASED 05/13/2010 MADL PAPER MILL MANAGER, JHONATAN L 724.5 BACKACHE 05/13/2010 MADL PAPER MILL MANAGER, JHONATAN L 788.41 URINARY FREQUENCY INCREASED 05/13/2010 MAVERICK PAPER MILL MANAGER, ZACHARIAH R 724.5 BACKACHE 05/13/2010 MAVERICK PAPER MILL MANAGER, ZACHARIAH R 788.41 URINARY FREQUENCY INCREASED 05/13/2010 MADL PAPER MILL MANAGER, JHONATAN L 724.5 BACKACHE 05/13/2010 MADL PAPER MILL MANAGER, JHONATAN L 788.41 URINARY FREQUENCY INCREASED 05/13/2010 MADL PAPER MILL MANAGER, JHONATAN L 724.5 BACKACHE 05/13/2010 MADL PAPER MILL MANAGER, JHONATAN L 788.41 URINARY FREQUENCY INCREASED 05/13/2010 MADL PAPER MILL MANAGER, JHONATAN L 724.5 BACKACHE 05/13/2010 MADL PAPER MILL MANAGER, JHONATAN L 788.41 URINARY FREQUENCY INCREASED 05/13/2010 MADL PAPER MILL MANAGER, JHONATAN L 724.5 BACKACHE 05/13/2010 MADL PAPER MILL MANAGER, JHONATAN L 788.41 URINARY FREQUENCY INCREASED 05/13/2010 MADL PAPER MILL MANAGER, JHONATAN L 724.5 BACKACHE 05/13/2010 MADL PAPER MILL MANAGER, JHONATAN L 788.41 URINARY FREQUENCY INCREASED 05/13/2010 MADL PAPER MILL MANAGER, JHONATAN L 724.5 BACKACHE 05/13/2010 MADL PAPER MILL MANAGER, JHONATAN L 788.41 URINARY FREQUENCY INCREASED 05/13/2010 CURRIE DO, AMELIA K 724.5 BACKACHE 05/13/2010 CURRIE DO, AMELIA K 788.41 URINARY FREQUENCY INCREASED 05/13/2010 MADL PAPER MILL MANAGER, JHONATAN L 724.5 BACKACHE 05/13/2010 MADL PAPER MILL MANAGER, JHONATAN L 788.41 URINARY FREQUENCY INCREASED 05/13/2010 BLANCHE PAPER MILL MANAGER, BHARAT S 724.5 BACKACHE 05/13/2010 BLANCHE PAPER MILL MANAGER, BHARAT S 788.41 URINARY FREQUENCY INCREASED 05/13/2010 724.5 BACKACHE 05/13/2010 788.41 URINARY FREQUENCY INCREASED 05/13/2010 MAVERICK PAPER MILL MANAGER, ZACHARIAH R 724.5 BACKACHE 05/13/2010 MAVERICK PAPER MILL MANAGER, ZACHARIAH R 788.41 URINARY FREQUENCY INCREASED 05/13/2010 ALMONTE DDS, SAE 724.5 BACKACHE 05/13/2010 ALMONTE DDS, SAE 788.41 URINARY FREQUENCY INCREASED 05/22/2010 MAGDALENA EUCEDA MD 558.9 GASTROENTERITIS NONINFECTIOUS 05/22/2010 MAGDALENA EUCEDA MD 917.7 FOREIGN BODY-SUPERFICIAL 05/22/2010 OK CHAVIS, MAGDALENA 558.9 GASTROENTERITIS NONINFECTIOUS 05/22/2010 OK CHAVIS, MAGDALENA 917.7 FOREIGN BODY-SUPERFICIAL 05/22/2010 OK CHAVIS, MAGDALENA 558.9 GASTROENTERITIS NONINFECTIOUS 05/22/2010 MAGDALENA EUCEDA MD 917.7 FOREIGN BODY-SUPERFICIAL 05/22/2010 558.9 GASTROENTERITIS NONINFECTIOUS 05/22/2010 917.7 FOREIGN BODY-SUPERFICIAL 05/22/2010 OK CHAVIS, MAGDALENA 558.9 GASTROENTERITIS NONINFECTIOUS 05/22/2010 MAGDALENA EUCEDA MD 917.7 FOREIGN BODY-SUPERFICIAL 05/22/2010 558.9 GASTROENTERITIS NONINFECTIOUS 05/22/2010 917.7 FOREIGN BODY-SUPERFICIAL 05/22/2010 558.9 GASTROENTERITIS NONINFECTIOUS 05/22/2010 917.7 FOREIGN BODY-SUPERFICIAL 05/22/2010 558.9 GASTROENTERITIS NONINFECTIOUS 05/22/2010 917.7 FOREIGN BODY-SUPERFICIAL 05/22/2010 558.9 GASTROENTERITIS NONINFECTIOUS 05/22/2010 917.7 FOREIGN BODY-SUPERFICIAL 05/22/2010 558.9 GASTROENTERITIS NONINFECTIOUS 05/22/2010 917.7 FOREIGN BODY-SUPERFICIAL 05/22/2010 558.9 GASTROENTERITIS NONINFECTIOUS 05/22/2010 917.7 FOREIGN BODY-SUPERFICIAL 05/22/2010 558.9 GASTROENTERITIS NONINFECTIOUS 05/22/2010 917.7 FOREIGN BODY-SUPERFICIAL 05/22/2010 558.9 GASTROENTERITIS NONINFECTIOUS 05/22/2010 917.7 FOREIGN BODY-SUPERFICIAL 05/22/2010 FELIBERTO GARCIA APRN 558.9 GASTROENTERITIS NONINFECTIOUS 05/22/2010 FELIBERTO GARCIA APRN 917.7 FOREIGN BODY-SUPERFICIAL 05/22/2010 MAGDALENA EUCEDA MD 558.9 GASTROENTERITIS NONINFECTIOUS 05/22/2010 MAGDALENA EUCEDA MD 917.7 FOREIGN BODY-SUPERFICIAL 05/22/2010 MAGDALENA EUCEDA MD 558.9 GASTROENTERITIS NONINFECTIOUS 05/22/2010 MAGDALENA EUCEDA MD 917.7 FOREIGN BODY-SUPERFICIAL 05/22/2010 ALLI HUNT MD 558.9 GASTROENTERITIS NONINFECTIOUS 05/22/2010 ALLI HUNT MD 917.7 FOREIGN BODY-SUPERFICIAL 05/22/2010 MAGDALENA EUCEDA MD 558.9 GASTROENTERITIS NONINFECTIOUS 05/22/2010 MAGDALENA EUCEDA MD 917.7 FOREIGN BODY-SUPERFICIAL 05/22/2010 CURRIE DO, AMELIA K 558.9 GASTROENTERITIS NONINFECTIOUS 05/22/2010 CURRIE DO, AMELIA K 917.7 FOREIGN BODY-SUPERFICIAL 05/22/2010 CURRIE DO, AMELIA K 558.9 GASTROENTERITIS NONINFECTIOUS 05/22/2010 CURRIE DO, AMELIA K 917.7 FOREIGN BODY-SUPERFICIAL 05/22/2010 CURRIE DO, AMELIA K 558.9 GASTROENTERITIS NONINFECTIOUS 05/22/2010 CURRIE DO, AMELIA K 917.7 FOREIGN BODY-SUPERFICIAL 05/22/2010 CURRIE DO, AMELIA K 558.9 GASTROENTERITIS NONINFECTIOUS 05/22/2010 CURRIE DO, AMELIA K 917.7 FOREIGN BODY-SUPERFICIAL 05/22/2010 CURRIE DO, AMELIA K 558.9 GASTROENTERITIS NONINFECTIOUS 05/22/2010 CURRIE DO, AMELIA K 917.7 FOREIGN BODY-SUPERFICIAL 05/22/2010 CHARITY PAPER MILL MANAGER, MARCI A 558.9 GASTROENTERITIS NONINFECTIOUS 05/22/2010 CHARITY PAPER MILL MANAGER, MARCI A 917.7 FOREIGN BODY-SUPERFICIAL 05/22/2010 MADL PAPER MILL MANAGER, JHONATAN L 558.9 GASTROENTERITIS NONINFECTIOUS 05/22/2010 MADL PAPER MILL MANAGER, JHONATAN L 917.7 FOREIGN BODY-SUPERFICIAL 05/22/2010 558.9 GASTROENTERITIS NONINFECTIOUS 05/22/2010 917.7 FOREIGN BODY-SUPERFICIAL 05/22/2010 CURRIE DO, AMELIA K 558.9 GASTROENTERITIS NONINFECTIOUS 05/22/2010 CURRIE DO, AMELIA K 917.7 FOREIGN BODY-SUPERFICIAL 05/22/2010 CURRIE DO, AMELIA K 558.9 GASTROENTERITIS NONINFECTIOUS 05/22/2010 CURRIE DO, AMELIA K 917.7 FOREIGN BODY-SUPERFICIAL 05/22/2010 MADL PAPER MILL MANAGER, JHONATAN L 558.9 GASTROENTERITIS NONINFECTIOUS 05/22/2010 MADL PAPER MILL MANAGER, JHONATAN L 917.7 FOREIGN BODY-SUPERFICIAL 05/22/2010 MADL PAPER MILL MANAGER, JHONATAN L 558.9 GASTROENTERITIS NONINFECTIOUS 05/22/2010 MADL PAPER MILL MANAGER, JHONATAN L 917.7 FOREIGN BODY-SUPERFICIAL 05/22/2010 MADL PAPER MILL MANAGER, JHONATAN L 558.9 GASTROENTERITIS NONINFECTIOUS 05/22/2010 MADL PAPER MILL MANAGER, JHONATAN L 917.7 FOREIGN BODY-SUPERFICIAL 05/22/2010 CURRIE DO, AMELIA K 558.9 GASTROENTERITIS NONINFECTIOUS 05/22/2010 CURRIE DO, AMELIA K 917.7 FOREIGN BODY-SUPERFICIAL 05/22/2010 MADL PAPER MILL MANAGER, JHONATAN L 558.9 GASTROENTERITIS NONINFECTIOUS 05/22/2010 MADL PAPER MILL MANAGER, JHONATAN L 917.7 FOREIGN BODY-SUPERFICIAL 05/22/2010 MADL PAPER MILL MANAGER, JHONATAN L 558.9 GASTROENTERITIS NONINFECTIOUS 05/22/2010 MADL PAPER MILL MANAGER, JHONATAN L 917.7 FOREIGN BODY-SUPERFICIAL 05/22/2010 MADL PAPER MILL MANAGER, JHONATAN L 558.9 GASTROENTERITIS NONINFECTIOUS 05/22/2010 MADL PAPER MILL MANAGER, JHONATAN L 917.7 FOREIGN BODY-SUPERFICIAL 05/22/2010 CURRIE DO, AMELIA K 558.9 GASTROENTERITIS NONINFECTIOUS 05/22/2010 CURRIE DO, AMELIA K 917.7 FOREIGN BODY-SUPERFICIAL 05/22/2010 MADL PAPER MILL MANAGER, JHONATAN L 558.9 GASTROENTERITIS NONINFECTIOUS 05/22/2010 MADL PAPER MILL MANAGER, JHONATAN L 917.7 FOREIGN BODY-SUPERFICIAL 05/22/2010 MADL PAPER MILL MANAGER, JHONATAN L 558.9 GASTROENTERITIS NONINFECTIOUS 05/22/2010 MADL PAPER MILL MANAGER, JHONATAN L 917.7 FOREIGN BODY-SUPERFICIAL 05/22/2010 MAVERICK PAPER MILL MANAGER, ZACHARIAH R 558.9 GASTROENTERITIS NONINFECTIOUS 05/22/2010 MAVERICK PAPER MILL MANAGER, ZACHARIAH R 917.7 FOREIGN BODY-SUPERFICIAL 05/22/2010 MADL PAPER MILL MANAGER, JHONATAN L 558.9 GASTROENTERITIS NONINFECTIOUS 05/22/2010 MADL PAPER MILL MANAGER, JHONATAN L 917.7 FOREIGN BODY-SUPERFICIAL 05/22/2010 MADL PAPER MILL MANAGER, JHONATAN L 558.9 GASTROENTERITIS NONINFECTIOUS 05/22/2010 MADL PAPER MILL MANAGER, JHONATAN L 917.7 FOREIGN BODY-SUPERFICIAL 05/22/2010 MADL PAPER MILL MANAGER, JHONATAN L 558.9 GASTROENTERITIS NONINFECTIOUS 05/22/2010 MADL PAPER MILL MANAGER, JHONATAN L 917.7 FOREIGN BODY-SUPERFICIAL 05/22/2010 MADL PAPER MILL MANAGER, JHONATAN L 558.9 GASTROENTERITIS NONINFECTIOUS 05/22/2010 MADL PAPER MILL MANAGER, JHONATAN L 917.7 FOREIGN BODY-SUPERFICIAL 05/22/2010 MADL PAPER MILL MANAGER, JHONATAN L 558.9 GASTROENTERITIS NONINFECTIOUS 05/22/2010 MADL PAPER MILL MANAGER, JHONATAN L 917.7 FOREIGN BODY-SUPERFICIAL 05/22/2010 MADL PAPER MILL MANAGER, JHONATAN L 558.9 GASTROENTERITIS NONINFECTIOUS 05/22/2010 MADL PAPER MILL MANAGER, JHONATAN L 917.7 FOREIGN BODY-SUPERFICIAL 05/22/2010 CURRIE DO, AMELIA K 558.9 GASTROENTERITIS NONINFECTIOUS 05/22/2010 CURRIE DO, AMELIA K 917.7 FOREIGN BODY-SUPERFICIAL 05/22/2010 MADL PAPER MILL MANAGER, JHONATAN L 558.9 GASTROENTERITIS NONINFECTIOUS 05/22/2010 MADL PAPER MILL MANAGER, JHONATAN L 917.7 FOREIGN BODY-SUPERFICIAL 05/22/2010 BLANCHE PAPER MILL MANAGER, BHARAT S 558.9 GASTROENTERITIS NONINFECTIOUS 05/22/2010 BLANCHE PAPER MILL MANAGER, BHARAT S 917.7 FOREIGN BODY-SUPERFICIAL 05/22/2010 558.9 GASTROENTERITIS NONINFECTIOUS 05/22/2010 917.7 FOREIGN BODY-SUPERFICIAL 05/22/2010 MAVERICK PAPER MILL MANAGER, ZACHARIAH R 558.9 GASTROENTERITIS NONINFECTIOUS 05/22/2010 MAVERICK GUTIERREZN, ZACHARIAH R 917.7 FOREIGN BODY-SUPERFICIAL 05/22/2010 SAE ALMONTE DDS 558.9 GASTROENTERITIS NONINFECTIOUS 05/22/2010 SAE ALMONTE DDS 917.7 FOREIGN BODY-SUPERFICIAL 05/25/2010 OK CHAVIS, MAGDALENA 787.91 DIARRHEA 05/25/2010 OK CHAVIS, MAGDALENA 787.91 DIARRHEA 05/25/2010 OK CHAVIS, MAGDALENA 787.91 DIARRHEA 05/25/2010 787.91 DIARRHEA 05/25/2010 OK CHAVIS, MAGDALENA 787.91 DIARRHEA 05/25/2010 787.91 DIARRHEA 05/25/2010 787.91 DIARRHEA 05/25/2010 787.91 DIARRHEA 05/25/2010 787.91 DIARRHEA 05/25/2010 787.91 DIARRHEA 05/25/2010 787.91 DIARRHEA 05/25/2010 787.91 DIARRHEA 05/25/2010 787.91 DIARRHEA 05/25/2010 RADHA FUCHS FELIBERTO A 787.91 DIARRHEA 05/25/2010 OK CHAVIS, MAGDALENA 787.91 DIARRHEA 05/25/2010 OK CHAVIS, MAGDALENA 787.91 DIARRHEA 05/25/2010 MARILEE CHAVIS, ALLI Shirley 787.91 DIARRHEA 05/25/2010 OK CHAVIS, MAGDALENA 787.91 DIARRHEA 05/25/2010 CURRIE DO, AMELIA K 787.91 DIARRHEA 05/25/2010 CURRIE DO, AMELIA K 787.91 DIARRHEA 05/25/2010 CURRIE DO, AMELIA K 787.91 DIARRHEA 05/25/2010 CURRIE DO, AMELIA K 787.91 DIARRHEA 05/25/2010 CURRIE DO, AMELIA K 787.91 DIARRHEA 05/25/2010 CHARITYOmar FUCHS MARCI A 787.91 DIARRHEA 05/25/2010 MADL PAPER MILL MANAGER, JHONATAN L 787.91 DIARRHEA 05/25/2010 787.91 DIARRHEA 05/25/2010 CURRIE DO, AMELIA K 787.91 DIARRHEA 05/25/2010 CURRIE DO, AMELIA K 787.91 DIARRHEA 05/25/2010 MADL PAPER MILL MANAGER, JHONATAN L 787.91 DIARRHEA 05/25/2010 MADL PAPER MILL MANAGER, JHONATAN L 787.91 DIARRHEA 05/25/2010 MADL PAPER MILL MANAGER, JHONATAN L 787.91 DIARRHEA 05/25/2010 CURRIE DO, AMELIA K 787.91 DIARRHEA 05/25/2010 MADL PAPER MILL MANAGER, JHONATAN L 787.91 DIARRHEA 05/25/2010 MADL PAPER MILL MANAGER, JHONATAN L 787.91 DIARRHEA 05/25/2010 MADL PAPER MILL MANAGER, JHONATAN L 787.91 DIARRHEA 05/25/2010 CURRIE DO, AMELIA K 787.91 DIARRHEA 05/25/2010 MADL PAPER MILL MANAGER, JHONATAN L 787.91 DIARRHEA 05/25/2010 MADL PAPER MILL MANAGER, JHONATAN L 787.91 DIARRHEA 05/25/2010 MAVERICK PAPER MILL MANAGER, ZACHARIAH R 787.91 DIARRHEA 05/25/2010 MADL PAPER MILL MANAGER, JHONATAN L 787.91 DIARRHEA 05/25/2010 MADL PAPER MILL MANAGER, JHONATAN L 787.91 DIARRHEA 05/25/2010 MADL PAPER MILL MANAGER, JHONATAN L 787.91 DIARRHEA 05/25/2010 MADL PAPER MILL MANAGER, JHONATAN L 787.91 DIARRHEA 05/25/2010 MADL PAPER MILL MANAGER, JHONATAN L 787.91 DIARRHEA 05/25/2010 MADL PAPER MILL MANAGER, JHONATAN L 787.91 DIARRHEA 05/25/2010 CURRIE DO, AMELIA K 787.91 DIARRHEA 05/25/2010 MADL PAPER MILL MANAGER, JHONATAN L 787.91 DIARRHEA 05/25/2010 BLANCHE PAPER MILL MANAGER, BHARAT S 787.91 DIARRHEA 05/25/2010 787.91 DIARRHEA 05/25/2010 MAVERICK PAPER MILL MANAGER, ZACHARIAH R 787.91 DIARRHEA 05/25/2010 SUZY SIMMSS, SAE 787.91 DIARRHEA 06/09/2010 KO CHAVIS, MAGDALENA 466.0 BRONCHITIS, ACUTE 06/09/2010 MAGDALENA EUCEDA MD 466.0 BRONCHITIS, ACUTE 06/09/2010 MAGDALENA EUCEDA MD 466.0 BRONCHITIS, ACUTE 06/09/2010 466.0 BRONCHITIS, ACUTE 06/09/2010 MAGDALENA EUCEDA MD 466.0 BRONCHITIS, ACUTE 06/09/2010 466.0 BRONCHITIS, ACUTE 06/09/2010 466.0 BRONCHITIS, ACUTE 06/09/2010 466.0 BRONCHITIS, ACUTE 06/09/2010 466.0 BRONCHITIS, ACUTE 06/09/2010 466.0 BRONCHITIS, ACUTE 06/09/2010 466.0 BRONCHITIS, ACUTE 06/09/2010 466.0 BRONCHITIS, ACUTE 06/09/2010 466.0 BRONCHITIS, ACUTE 06/09/2010 FELIBERTO GARCIA APRN 466.0 BRONCHITIS, ACUTE 06/09/2010 MAGDALENA EUCEDA MD 466.0 BRONCHITIS, ACUTE 06/09/2010 OK CHAVIS, MAGDALENA 466.0 BRONCHITIS, ACUTE 06/09/2010 MARILEE CHAVIS, ALLI M 466.0 BRONCHITIS, ACUTE 06/09/2010 OK CHAVIS, MAGDALENA 466.0 BRONCHITIS, ACUTE 06/09/2010 CURRIE DO, AMELIA K 466.0 BRONCHITIS, ACUTE 06/09/2010 CURRIE DO, AMELIA K 466.0 BRONCHITIS, ACUTE 06/09/2010 CURRIE DO, AMELIA K 466.0 BRONCHITIS, ACUTE 06/09/2010 CURRIE DO, AMELIA K 466.0 BRONCHITIS, ACUTE 06/09/2010 CURRIE DO, AMELIA K 466.0 BRONCHITIS, ACUTE 06/09/2010 CHARITY PAPER MILL MANAGER, MARCI A 466.0 BRONCHITIS, ACUTE 06/09/2010 MADL PAPER MILL MANAGER, JHONATAN L 466.0 BRONCHITIS, ACUTE 06/09/2010 466.0 BRONCHITIS, ACUTE 06/09/2010 CURRIE DO, AMELIA K 466.0 BRONCHITIS, ACUTE 06/09/2010 CURRIE DO, AMELIA K 466.0 BRONCHITIS, ACUTE 06/09/2010 MADL PAPER MILL MANAGER, JHONATAN L 466.0 BRONCHITIS, ACUTE 06/09/2010 MADL PAPER MILL MANAGER, JHONATAN L 466.0 BRONCHITIS, ACUTE 06/09/2010 MADL PAPER MILL MANAGER, JHONATAN L 466.0 BRONCHITIS, ACUTE 06/09/2010 CURRIE DO, AMELIA K 466.0 BRONCHITIS, ACUTE 06/09/2010 MADL PAPER MILL MANAGER, JHONATAN L 466.0 BRONCHITIS, ACUTE 06/09/2010 MADL PAPER MILL MANAGER, JHONATAN L 466.0 BRONCHITIS, ACUTE 06/09/2010 MADL PAPER MILL MANAGER, JHONATAN L 466.0 BRONCHITIS, ACUTE 06/09/2010 CURRIE DO, AMELIA K 466.0 BRONCHITIS, ACUTE 06/09/2010 MADL PAPER MILL MANAGER, JHONATAN L 466.0 BRONCHITIS, ACUTE 06/09/2010 MADL PAPER MILL MANAGER, JHONATAN L 466.0 BRONCHITIS, ACUTE 06/09/2010 MAVERICK PAPER MILL MANAGER, ZACHARIAH R 466.0 BRONCHITIS, ACUTE 06/09/2010 MADL PAPER MILL MANAGER, JHONATAN L 466.0 BRONCHITIS, ACUTE 06/09/2010 MADL PAPER MILL MANAGER, JHONATAN L 466.0 BRONCHITIS, ACUTE 06/09/2010 MADL PAPER MILL MANAGER, JHONATAN L 466.0 BRONCHITIS, ACUTE 06/09/2010 MADL PAPER MILL MANAGER, JHONATAN L 466.0 BRONCHITIS, ACUTE 06/09/2010 MADL PAPER MILL MANAGER, JHONATAN L 466.0 BRONCHITIS, ACUTE 06/09/2010 MADL PAPER MILL MANAGER, JHONATAN L 466.0 BRONCHITIS, ACUTE 06/09/2010 CURRIE DO, AMELIA K 466.0 BRONCHITIS, ACUTE 06/09/2010 MADL PAPER MILL MANAGER, JHONATAN L 466.0 BRONCHITIS, ACUTE 06/09/2010 BLANCHE PAPER MILL MANAGER, BHARAT S 466.0 BRONCHITIS, ACUTE 06/09/2010 466.0 BRONCHITIS, ACUTE 06/09/2010 MAVERICK PAPER MILL MANAGER, ZACHARIAH R 466.0 BRONCHITIS, ACUTE 06/09/2010 ALMONTE DDS, SAE 466.0 BRONCHITIS, ACUTE 07/14/2010 MAGDALENA EUCEDA MD 461.9 SINUSITIS ACUTE 07/14/2010 MAGDALENA EUCEDA MD 599.0 URINARY TRACT INFECTION SITE NOT SPECIFIED 07/14/2010 MAGDALENA EUCEDA MD 625.6 STRESS INCONTINENCE FEMALE 07/14/2010 MAGDALENA EUCEDA MD 724.2 lower back pain 07/14/2010 MAGDALENA EUCEDA MD 461.9 SINUSITIS ACUTE 07/14/2010 MAGDALENA EUCEDA MD 599.0 URINARY TRACT INFECTION SITE NOT SPECIFIED 07/14/2010 MAGDALENA EUCEDA MD 625.6 STRESS INCONTINENCE FEMALE 07/14/2010 MAGDALENA EUCEDA MD 724.2 lower back pain 07/14/2010 MAGDALENA EUCEDA MD 461.9 SINUSITIS ACUTE 07/14/2010 MAGDALENA EUCEDA MD 599.0 URINARY TRACT INFECTION SITE NOT SPECIFIED 07/14/2010 MAGDALENA EUCEDA MD 625.6 STRESS INCONTINENCE FEMALE 07/14/2010 MAGDALENA EUCEDA MD 724.2 lower back pain 07/14/2010 461.9 SINUSITIS ACUTE 07/14/2010 599.0 URINARY TRACT INFECTION SITE NOT SPECIFIED 07/14/2010 625.6 STRESS INCONTINENCE FEMALE 07/14/2010 724.2 lower back pain 07/14/2010 MAGDALENA EUCEDA MD 461.9 SINUSITIS ACUTE 07/14/2010 MAGDALENA EUCEDA MD 599.0 URINARY TRACT INFECTION SITE NOT SPECIFIED 07/14/2010 MAGDALENA EUCEDA MD 625.6 STRESS INCONTINENCE FEMALE 07/14/2010 MAGDALENA EUCEDA MD 724.2 lower back pain 07/14/2010 461.9 SINUSITIS ACUTE 07/14/2010 599.0 URINARY TRACT INFECTION SITE NOT SPECIFIED 07/14/2010 625.6 STRESS INCONTINENCE FEMALE 07/14/2010 724.2 lower back pain 07/14/2010 461.9 SINUSITIS ACUTE 07/14/2010 599.0 URINARY TRACT INFECTION SITE NOT SPECIFIED 07/14/2010 625.6 STRESS INCONTINENCE FEMALE 07/14/2010 724.2 lower back pain 07/14/2010 461.9 SINUSITIS ACUTE 07/14/2010 599.0 URINARY TRACT INFECTION 07/14/2010 625.6 STRESS INCONTINENCE FEMALE 07/14/2010 724.2 lower back pain 07/14/2010 461.9 SINUSITIS ACUTE 07/14/2010 599.0 URINARY TRACT INFECTION 07/14/2010 625.6 STRESS INCONTINENCE FEMALE 07/14/2010 724.2 lower back pain 07/14/2010 461.9 SINUSITIS ACUTE 07/14/2010 599.0 URINARY TRACT INFECTION 07/14/2010 625.6 STRESS INCONTINENCE FEMALE 07/14/2010 724.2 lower back pain 07/14/2010 461.9 SINUSITIS ACUTE 07/14/2010 599.0 URINARY TRACT INFECTION 07/14/2010 625.6 STRESS INCONTINENCE FEMALE 07/14/2010 724.2 lower back pain 07/14/2010 461.9 SINUSITIS ACUTE 07/14/2010 599.0 URINARY TRACT INFECTION 07/14/2010 625.6 STRESS INCONTINENCE FEMALE 07/14/2010 724.2 lower back pain 07/14/2010 461.9 SINUSITIS ACUTE 07/14/2010 599.0 URINARY TRACT INFECTION 07/14/2010 625.6 STRESS INCONTINENCE FEMALE 07/14/2010 724.2 lower back pain 07/14/2010 JENNIFER GARCIA APRNYL A 461.9 SINUSITIS ACUTE 07/14/2010 JENNIFER GARCIA APRNYL A 599.0 URINARY TRACT INFECTION 07/14/2010 JENNIFER GARCIA APRNYL A 625.6 STRESS INCONTINENCE FEMALE 07/14/2010 JENNIFER GARCIA APRNYL A 724.2 lower back pain 07/14/2010 MAGDALENA EUCEDA MD 461.9 SINUSITIS ACUTE 07/14/2010 OK CHAVIS, MAGDALENA 599.0 URINARY TRACT INFECTION 07/14/2010 MAGDALENA EUCEDA MD 625.6 STRESS INCONTINENCE FEMALE 07/14/2010 MAGDALENA EUCEDA MD 724.2 lower back pain 07/14/2010 MAGDALENA EUCEDA MD 461.9 SINUSITIS ACUTE 07/14/2010 MAGDALENA EUCEDA MD 599.0 URINARY TRACT INFECTION 07/14/2010 MAGDALENA EUCEDA MD 625.6 STRESS INCONTINENCE FEMALE 07/14/2010 MAGDALENA EUCEDA MD 724.2 lower back pain 07/14/2010 MARILEE CHAVIS, ALLI Shirley 461.9 SINUSITIS ACUTE 07/14/2010 MARILEE CHAVIS, ALLI Shirley 599.0 URINARY TRACT INFECTION 07/14/2010 MARILEE CHAVIS, ALLI Shirley 625.6 STRESS INCONTINENCE FEMALE 07/14/2010 MARILEE CHAVIS, ALLI Shirley 724.2 lower back pain 07/14/2010 MAGDALENA EUCEDA MD 461.9 SINUSITIS ACUTE 07/14/2010 MAGDALENA EUCEDA MD 599.0 URINARY TRACT INFECTION SITE NOT SPECIFIED 07/14/2010 MAGDALENA EUCEDA MD 625.6 STRESS INCONTINENCE FEMALE 07/14/2010 MAGDALENA EUCEDA MD 724.2 lower back pain 07/14/2010 CURRIE DO, AMELIA K 461.9 SINUSITIS ACUTE 07/14/2010 CURRIE DO, AMELIA K 599.0 URINARY TRACT INFECTION 07/14/2010 CURRIE DO, AMELIA K 625.6 STRESS INCONTINENCE FEMALE 07/14/2010 CURRIE DO, AMELIA K 724.2 lower back pain 07/14/2010 CURRIE DO, AMELIA K 461.9 SINUSITIS ACUTE 07/14/2010 CURRIE DO, AMELIA K 599.0 URINARY TRACT INFECTION 07/14/2010 CURRIE DO, AMELIA K 625.6 STRESS INCONTINENCE FEMALE 07/14/2010 CURRIE DO, AMELIA K 724.2 lower back pain 07/14/2010 CURRIE DO, AMELIA K 461.9 SINUSITIS ACUTE 07/14/2010 CURRIE DO, AMELIA K 599.0 URINARY TRACT INFECTION 07/14/2010 CURRIE DO, AMELIA K 625.6 STRESS INCONTINENCE FEMALE 07/14/2010 CURRIE DO, AMELIA K 724.2 lower back pain 07/14/2010 CURRIE DO, AMELIA K 461.9 SINUSITIS ACUTE 07/14/2010 CURRIE DO, AMELIA K 599.0 URINARY TRACT INFECTION 07/14/2010 CURRIE DO, AMELIA K 625.6 STRESS INCONTINENCE FEMALE 07/14/2010 CURRIE DO, AMELIA K 724.2 lower back pain 07/14/2010 CURRIE DO, AMELIA K 461.9 SINUSITIS ACUTE 07/14/2010 CURRIE DO, AMELIA K 599.0 URINARY TRACT INFECTION 07/14/2010 CURRIE DO, AMELIA K 625.6 STRESS INCONTINENCE FEMALE 07/14/2010 CURRIE DO, AMELIA K 724.2 lower back pain 07/14/2010 CHARITY PAPER MILL MANAGER, MARCI A 461.9 SINUSITIS ACUTE 07/14/2010 CHARITY PAPER MILL MANAGER, MARCI A 599.0 URINARY TRACT INFECTION 07/14/2010 CHARITY PAPER MILL MANAGER, MARCI A 625.6 STRESS INCONTINENCE FEMALE 07/14/2010 CHARITY PAPER MILL MANAGER, MARCI A 724.2 lower back pain 07/14/2010 MADL PAPER MILL MANAGER, JHONATAN L 461.9 SINUSITIS ACUTE 07/14/2010 MADL PAPER MILL MANAGER, JHONATAN L 599.0 URINARY TRACT INFECTION 07/14/2010 MADL PAPER MILL MANAGER, JHONATAN L 625.6 STRESS INCONTINENCE FEMALE 07/14/2010 MADL PAPER MILL MANAGER, JHONATAN L 724.2 lower back pain 07/14/2010 461.9 SINUSITIS ACUTE 07/14/2010 599.0 URINARY TRACT INFECTION 07/14/2010 625.6 STRESS INCONTINENCE FEMALE 07/14/2010 724.2 lower back pain 07/14/2010 CURRIE DO, AMELIA K 461.9 SINUSITIS ACUTE 07/14/2010 CURRIE DO, AMELIA K 599.0 URINARY TRACT INFECTION 07/14/2010 CURRIE DO, AMELIA K 625.6 STRESS INCONTINENCE FEMALE 07/14/2010 CURRIE DO, AMELIA K 724.2 lower back pain 07/14/2010 CURRIE DO, AMELIA K 461.9 SINUSITIS ACUTE 07/14/2010 CURRIE DO, AMELIA K 599.0 URINARY TRACT INFECTION 07/14/2010 CURRIE DO, AMELIA K 625.6 STRESS INCONTINENCE FEMALE 07/14/2010 CURRIE DO, AMELIA K 724.2 lower back pain 07/14/2010 MADL PAPER MILL MANAGER, JHONATAN L 461.9 SINUSITIS ACUTE 07/14/2010 MADL PAPER MILL MANAGER, JHONATAN L 599.0 URINARY TRACT INFECTION 07/14/2010 MADL PAPER MILL MANAGER, JHONATAN L 625.6 STRESS INCONTINENCE FEMALE 07/14/2010 MADL PAPER MILL MANAGER, JHONATAN L 724.2 lower back pain 07/14/2010 MADL PAPER MILL MANAGER, JHONATAN L 461.9 SINUSITIS ACUTE 07/14/2010 MADL PAPER MILL MANAGER, JHONATAN L 599.0 URINARY TRACT INFECTION 07/14/2010 MADL PAPER MILL MANAGER, JHONATAN L 625.6 STRESS INCONTINENCE FEMALE 07/14/2010 MADL PAPER MILL MANAGER, JHONATAN L 724.2 lower back pain 07/14/2010 MADL PAPER MILL MANAGER, JHONATAN L 461.9 SINUSITIS ACUTE 07/14/2010 MADL PAPER MILL MANAGER, JHONATAN L 599.0 URINARY TRACT INFECTION 07/14/2010 MADL PAPER MILL MANAGER, JHONATAN L 625.6 STRESS INCONTINENCE FEMALE 07/14/2010 MADL PAPER MILL MANAGER, JHONATAN L 724.2 lower back pain 07/14/2010 CURRIE DO, AMELIA K 461.9 SINUSITIS ACUTE 07/14/2010 CURRIE DO, AMELIA K 599.0 URINARY TRACT INFECTION 07/14/2010 CURRIE DO, AMELIA K 625.6 STRESS INCONTINENCE FEMALE 07/14/2010 CURRIE DO, AMELIA K 724.2 lower back pain 07/14/2010 MADL PAPER MILL MANAGER, JHONATAN L 461.9 SINUSITIS ACUTE 07/14/2010 MADL PAPER MILL MANAGER, JHONATAN L 599.0 URINARY TRACT INFECTION 07/14/2010 MADL PAPER MILL MANAGER, JHONATAN L 625.6 STRESS INCONTINENCE FEMALE 07/14/2010 MADL PAPER MILL MANAGER, JHONATAN L 724.2 lower back pain 07/14/2010 MADL PAPER MILL MANAGER, JHONATAN L 461.9 SINUSITIS ACUTE 07/14/2010 MADL PAPER MILL MANAGER, JHONATAN L 599.0 URINARY TRACT INFECTION 07/14/2010 MADL PAPER MILL MANAGER, JHONATAN L 625.6 STRESS INCONTINENCE FEMALE 07/14/2010 MADL PAPER MILL MANAGER, JHONATAN L 724.2 lower back pain 07/14/2010 MADL PAPER MILL MANAGER, JHONATAN L 461.9 SINUSITIS ACUTE 07/14/2010 MADL PAPER MILL MANAGER, JHONATAN L 599.0 URINARY TRACT INFECTION 07/14/2010 MADL PAPER MILL MANAGER, JHONATAN L 625.6 STRESS INCONTINENCE FEMALE 07/14/2010 MADL PAPER MILL MANAGER, JHONATAN L 724.2 lower back pain 07/14/2010 CURRIE DO, AMELIA K 461.9 SINUSITIS ACUTE 07/14/2010 CURRIE DO, AMELIA K 599.0 URINARY TRACT INFECTION 07/14/2010 CURRIE DO, AMELIA K 625.6 STRESS INCONTINENCE FEMALE 07/14/2010 CURRIE DO, AMELIA K 724.2 lower back pain 07/14/2010 MADL PAPER MILL MANAGER, JHONATAN L 461.9 SINUSITIS ACUTE 07/14/2010 MADL PAPER MILL MANAGER, JHONATAN L 599.0 URINARY TRACT INFECTION 07/14/2010 MADL PAPER MILL MANAGER, JHONATAN L 625.6 STRESS INCONTINENCE FEMALE 07/14/2010 MADL PAPER MILL MANAGER, JHONATAN L 724.2 lower back pain 07/14/2010 MADL PAPER MILL MANAGER, JHONATAN L 461.9 SINUSITIS ACUTE 07/14/2010 MADL PAPER MILL MANAGER, JHONATAN L 599.0 URINARY TRACT INFECTION 07/14/2010 MADL PAPER MILL MANAGER, JHONATAN L 625.6 STRESS INCONTINENCE FEMALE 07/14/2010 MADL PAPER MILL MANAGER, JHONATAN L 724.2 lower back pain 07/14/2010 MAVERICK PAPER MILL MANAGER, ZACHARIAH R 461.9 SINUSITIS ACUTE 07/14/2010 MAVERICK PAPER MILL MANAGER, ZACHARIAH R 599.0 URINARY TRACT INFECTION 07/14/2010 MAVERICK PAPER MILL MANAGER, ZACHARIAH R 625.6 STRESS INCONTINENCE FEMALE 07/14/2010 MAVERICK PAPER MILL MANAGER, ZACHARIAH R 724.2 lower back pain 07/14/2010 MADL PAPER MILL MANAGER, JHONATAN L 461.9 SINUSITIS ACUTE 07/14/2010 MADL PAPER MILL MANAGER, JHONATAN L 599.0 URINARY TRACT INFECTION 07/14/2010 MADL PAPER MILL MANAGER, JHONATAN L 625.6 STRESS INCONTINENCE FEMALE 07/14/2010 MADL PAPER MILL MANAGER, JHONATAN L 724.2 lower back pain 07/14/2010 MADL PAPER MILL MANAGER, JHONATAN L 461.9 SINUSITIS ACUTE 07/14/2010 MADL PAPER MILL MANAGER, JHONATAN L 599.0 URINARY TRACT INFECTION 07/14/2010 MADL PAPER MILL MANAGER, JHONATAN L 625.6 STRESS INCONTINENCE FEMALE 07/14/2010 MADL PAPER MILL MANAGER, JHONATAN L 724.2 lower back pain 07/14/2010 MADL PAPER MILL MANAGER, JHONATAN L 461.9 SINUSITIS ACUTE 07/14/2010 MADL PAPER MILL MANAGER, JHONATAN L 599.0 URINARY TRACT INFECTION 07/14/2010 MADL PAPER MILL MANAGER, JHONATAN L 625.6 STRESS INCONTINENCE FEMALE 07/14/2010 MADL PAPER MILL MANAGER, JHONATAN L 724.2 lower back pain 07/14/2010 MADL PAPER MILL MANAGER, JHONATAN L 461.9 SINUSITIS ACUTE 07/14/2010 MADL PAPER MILL MANAGER, JHONATAN L 599.0 URINARY TRACT INFECTION 07/14/2010 MADL PAPER MILL MANAGER, JHONATAN L 625.6 STRESS INCONTINENCE FEMALE 07/14/2010 MADL PAPER MILL MANAGER, JHONATAN L 724.2 lower back pain 07/14/2010 MADL PAPER MILL MANAGER, JHONATAN L 461.9 SINUSITIS ACUTE 07/14/2010 MADL PAPER MILL MANAGER, JHONATAN L 599.0 URINARY TRACT INFECTION 07/14/2010 MADL PAPER MILL MANAGER, JHONATAN L 625.6 STRESS INCONTINENCE FEMALE 07/14/2010 MADL PAPER MILL MANAGER, JHONATAN L 724.2 lower back pain 07/14/2010 MADL PAPER MILL MANAGER, JHONATAN L 461.9 SINUSITIS ACUTE 07/14/2010 MADL PAPER MILL MANAGER, JHONATAN L 599.0 URINARY TRACT INFECTION 07/14/2010 MADL PAPER MILL MANAGER, JHONATAN L 625.6 STRESS INCONTINENCE FEMALE 07/14/2010 MADL PAPER MILL MANAGER, JHONATAN L 724.2 lower back pain 07/14/2010 CURRIE DO, AMELIA K 461.9 SINUSITIS ACUTE 07/14/2010 CURRIE DO, AMELIA K 599.0 URINARY TRACT INFECTION 07/14/2010 CURRIE DO, AMELIA K 625.6 STRESS INCONTINENCE FEMALE 07/14/2010 CURRIE DO, AMELIA K 724.2 lower back pain 07/14/2010 MADL PAPER MILL MANAGER, JHONATAN L 461.9 SINUSITIS ACUTE 07/14/2010 MADL PAPER MILL MANAGER, JHONATAN L 599.0 URINARY TRACT INFECTION 07/14/2010 MADL PAPER MILL MANAGER, JHONATAN L 625.6 STRESS INCONTINENCE FEMALE 07/14/2010 MADL PAPER MILL MANAGER, JHONATAN L 724.2 lower back pain 07/14/2010 BLANCHE PAPER MILL MANAGER, BHARAT S 461.9 SINUSITIS ACUTE 07/14/2010 BLANCHE PAPER MILL MANAGER, BHARAT S 599.0 URINARY TRACT INFECTION 07/14/2010 BLANCHE PAPER MILL MANAGER, BHARAT S 625.6 STRESS INCONTINENCE FEMALE 07/14/2010 BLANCHE PAPER MILL MANAGER, BHARAT S 724.2 lower back pain 07/14/2010 461.9 SINUSITIS ACUTE 07/14/2010 599.0 URINARY TRACT INFECTION 07/14/2010 625.6 STRESS INCONTINENCE FEMALE 07/14/2010 724.2 lower back pain 07/14/2010 MAVERICK PAPER MILL MANAGER, ZACHARIAH R 461.9 SINUSITIS ACUTE 07/14/2010 MAVERICK PAPER MILL MANAGER, ZACHARIAH R 599.0 URINARY TRACT INFECTION 07/14/2010 MAVERICK PAPER MILL MANAGER, ZACHARIAH R 625.6 STRESS INCONTINENCE FEMALE 07/14/2010 MAVERICK PAPER MILL MANAGER, ZACHARIAH R 724.2 lower back pain 07/14/2010 ALMONTE DDS, SAE 461.9 SINUSITIS ACUTE 07/14/2010 ALMONTE DDS, SAE 599.0 URINARY TRACT INFECTION 07/14/2010 ALMONTE DDS, SAE 625.6 STRESS INCONTINENCE FEMALE 07/14/2010 ALMONTE DDS, SAE 724.2 lower back pain 07/23/2010 MAGDALENA EUCEDA MD 272.4 OTHER AND UNSPECIFIED HYPERLIPIDEMIA 07/23/2010 MAGDALENA EUCEDA MD 272.4 OTHER AND UNSPECIFIED HYPERLIPIDEMIA 07/23/2010 MAGDALENA EUCEDA MD 272.4 OTHER AND UNSPECIFIED HYPERLIPIDEMIA 07/23/2010 272.4 OTHER AND UNSPECIFIED HYPERLIPIDEMIA 07/23/2010 MAGDALENA EUCEDA MD 272.4 OTHER AND UNSPECIFIED HYPERLIPIDEMIA 07/23/2010 272.4 OTHER AND UNSPECIFIED HYPERLIPIDEMIA 07/23/2010 272.4 OTHER AND UNSPECIFIED HYPERLIPIDEMIA 07/23/2010 272.4 OTHER AND UNSPECIFIED HYPERLIPIDEMIA 07/23/2010 272.4 OTHER AND UNSPECIFIED HYPERLIPIDEMIA 07/23/2010 272.4 OTHER AND UNSPECIFIED HYPERLIPIDEMIA 07/23/2010 272.4 OTHER AND UNSPECIFIED HYPERLIPIDEMIA 07/23/2010 272.4 OTHER AND UNSPECIFIED HYPERLIPIDEMIA 07/23/2010 272.4 OTHER AND UNSPECIFIED HYPERLIPIDEMIA 07/23/2010 BAILEYE PAPER MILL MANAGER, FELIBERTO A 272.4 OTHER AND UNSPECIFIED HYPERLIPIDEMIA 07/23/2010 MAGDALENA EUCEDA MD 272.4 OTHER AND UNSPECIFIED HYPERLIPIDEMIA 07/23/2010 MAGDALENA EUCEDA MD 272.4 OTHER AND UNSPECIFIED HYPERLIPIDEMIA 07/23/2010 MARILEE CHAVIS, ALLI Shirley 272.4 OTHER AND UNSPECIFIED HYPERLIPIDEMIA 07/23/2010 MAGDALENA EUCEDA MD 272.4 OTHER AND UNSPECIFIED HYPERLIPIDEMIA 07/23/2010 CURRIE DO, AMELIA K 272.4 OTHER AND UNSPECIFIED HYPERLIPIDEMIA 07/23/2010 CURRIE DO, AMELIA K 272.4 OTHER AND UNSPECIFIED HYPERLIPIDEMIA 07/23/2010 CURRIE DO, AMELIA K 272.4 OTHER AND UNSPECIFIED HYPERLIPIDEMIA 07/23/2010 CURRIE DO, AMELIA K 272.4 OTHER AND UNSPECIFIED HYPERLIPIDEMIA 07/23/2010 CURRIE DO, AMELIA K 272.4 OTHER AND UNSPECIFIED HYPERLIPIDEMIA 07/23/2010 CHARITY PAPER MILL MANAGER, MARCI A 272.4 OTHER AND UNSPECIFIED HYPERLIPIDEMIA 07/23/2010 MADL PAPER MILL MANAGER, JHONATAN L 272.4 OTHER AND UNSPECIFIED HYPERLIPIDEMIA 07/23/2010 272.4 OTHER AND UNSPECIFIED HYPERLIPIDEMIA 07/23/2010 CURRIE DO, AMELIA K 272.4 OTHER AND UNSPECIFIED HYPERLIPIDEMIA 07/23/2010 CURRIE DO, AMELIA K 272.4 OTHER AND UNSPECIFIED HYPERLIPIDEMIA 07/23/2010 MADL PAPER MILL MANAGER, JHONATAN L 272.4 OTHER AND UNSPECIFIED HYPERLIPIDEMIA 07/23/2010 MADL PAPER MILL MANAGER, JHONATAN L 272.4 OTHER AND UNSPECIFIED HYPERLIPIDEMIA 07/23/2010 MADL PAPER MILL MANAGER, JHONATAN L 272.4 OTHER AND UNSPECIFIED HYPERLIPIDEMIA 07/23/2010 CURRIE DO, AMELIA K 272.4 OTHER AND UNSPECIFIED HYPERLIPIDEMIA 07/23/2010 MADL PAPER MILL MANAGER, JHONATAN L 272.4 OTHER AND UNSPECIFIED HYPERLIPIDEMIA 07/23/2010 MADL PAPER MILL MANAGER, JHONATAN L 272.4 OTHER AND UNSPECIFIED HYPERLIPIDEMIA 07/23/2010 MADL PAPER MILL MANAGER, JHONATAN L 272.4 OTHER AND UNSPECIFIED HYPERLIPIDEMIA 07/23/2010 CURRIE DO, AMELIA K 272.4 OTHER AND UNSPECIFIED HYPERLIPIDEMIA 07/23/2010 MADL PAPER MILL MANAGER, JHONATAN L 272.4 OTHER AND UNSPECIFIED HYPERLIPIDEMIA 07/23/2010 MADL PAPER MILL MANAGER, JHONATAN L 272.4 OTHER AND UNSPECIFIED HYPERLIPIDEMIA 07/23/2010 MAVERICK PAPER MILL MANAGER, ZACHARIAH R 272.4 OTHER AND UNSPECIFIED HYPERLIPIDEMIA 07/23/2010 MADL PAPER MILL MANAGER, JHONATAN L 272.4 OTHER AND UNSPECIFIED HYPERLIPIDEMIA 07/23/2010 MADL PAPER MILL MANAGER, JHONATAN L 272.4 OTHER AND UNSPECIFIED HYPERLIPIDEMIA 07/23/2010 MADL PAPER MILL MANAGER, JHONATAN L 272.4 OTHER AND UNSPECIFIED HYPERLIPIDEMIA 07/23/2010 MADL PAPER MILL MANAGER, JHONATAN L 272.4 OTHER AND UNSPECIFIED HYPERLIPIDEMIA 07/23/2010 MADL PAPER MILL MANAGER, JHONATAN L 272.4 OTHER AND UNSPECIFIED HYPERLIPIDEMIA 07/23/2010 MADL PAPER MILL MANAGER, JHONATAN L 272.4 OTHER AND UNSPECIFIED HYPERLIPIDEMIA 07/23/2010 CURRIE DO, AMELIA K 272.4 OTHER AND UNSPECIFIED HYPERLIPIDEMIA 07/23/2010 MADL PAPER MILL MANAGER, JHONATAN L 272.4 OTHER AND UNSPECIFIED HYPERLIPIDEMIA 07/23/2010 BLANCHE PAPER MILL MANAGER, BHARAT S 272.4 OTHER AND UNSPECIFIED HYPERLIPIDEMIA 07/23/2010 272.4 OTHER AND UNSPECIFIED HYPERLIPIDEMIA 07/23/2010 MAVERICK PAPER MILL MANAGER, ZACHARIAH R 272.4 OTHER AND UNSPECIFIED HYPERLIPIDEMIA 07/23/2010 SAE ALMONTE DDS 272.4 OTHER AND UNSPECIFIED HYPERLIPIDEMIA 08/17/2010 Ot 599.0 08/17/2010 Ot 788.1 08/17/2010 Ot 790.92 08/17/2010 Ot V58.61 09/25/2010 OK CHAVIS, MAGDALENA 465.9 UPPER RESPIRATORY INFECTION 09/25/2010 OK CHAVIS, MAGDALENA 847.0 SPRAIN OF NECK 09/25/2010 OK CHAVIS, MAGDALENA 465.9 UPPER RESPIRATORY INFECTION 09/25/2010 OK CHAVIS, MAGDALENA 847.0 SPRAIN OF NECK 09/25/2010 OK CHAVIS, MAGDALENA 465.9 UPPER RESPIRATORY INFECTION 09/25/2010 MAGDALENA EUCEDA MD 847.0 SPRAIN OF NECK 09/25/2010 465.9 UPPER RESPIRATORY INFECTION 09/25/2010 847.0 SPRAIN OF NECK 09/25/2010 MAGDALENA EUCEDA MD 465.9 UPPER RESPIRATORY INFECTION 09/25/2010 MAGDALENA EUCEDA MD 847.0 SPRAIN OF NECK 09/25/2010 465.9 UPPER RESPIRATORY INFECTION 09/25/2010 847.0 SPRAIN OF NECK 09/25/2010 465.9 UPPER RESPIRATORY INFECTION 09/25/2010 847.0 SPRAIN OF NECK 09/25/2010 465.9 UPPER RESPIRATORY INFECTION 09/25/2010 847.0 SPRAIN OF NECK 09/25/2010 465.9 UPPER RESPIRATORY INFECTION 09/25/2010 847.0 SPRAIN OF NECK 09/25/2010 465.9 UPPER RESPIRATORY INFECTION 09/25/2010 847.0 SPRAIN OF NECK 09/25/2010 465.9 UPPER RESPIRATORY INFECTION 09/25/2010 847.0 SPRAIN OF NECK 09/25/2010 465.9 UPPER RESPIRATORY INFECTION 09/25/2010 847.0 SPRAIN OF NECK 09/25/2010 465.9 UPPER RESPIRATORY INFECTION 09/25/2010 847.0 SPRAIN OF NECK 09/25/2010 RADHA FUCHS, FELIBERTO A 465.9 UPPER RESPIRATORY INFECTION 09/25/2010 RADHA FUCHS, FELIBERTO A 847.0 SPRAIN OF NECK 09/25/2010 MAGDALENA EUCEDA MD 465.9 UPPER RESPIRATORY INFECTION 09/25/2010 MAGDALENA EUCEDA MD 847.0 SPRAIN OF NECK 09/25/2010 MAGDALENA EUCEDA MD 465.9 UPPER RESPIRATORY INFECTION 09/25/2010 MAGDALENA EUCEDA MD 847.0 SPRAIN OF NECK 09/25/2010 ALLI HUNT MD 465.9 UPPER RESPIRATORY INFECTION 09/25/2010 ALLI HUNT MD 847.0 SPRAIN OF NECK 09/25/2010 MAGDALENA EUCEDA MD 465.9 UPPER RESPIRATORY INFECTION 09/25/2010 MAGDALENA EUCEDA MD 847.0 SPRAIN OF NECK 09/25/2010 CURRIE DO, AMELIA K 465.9 UPPER RESPIRATORY INFECTION 09/25/2010 CURRIE DO, AMELIA K 847.0 SPRAIN OF NECK 09/25/2010 CURRIE DO, AMELIA K 465.9 UPPER RESPIRATORY INFECTION 09/25/2010 CURRIE DO, AMELIA K 847.0 SPRAIN OF NECK 09/25/2010 CURRIE DO, AMELIA K 465.9 UPPER RESPIRATORY INFECTION 09/25/2010 CURRIE DO, AMELIA K 847.0 SPRAIN OF NECK 09/25/2010 CURRIE DO, AMELIA K 465.9 UPPER RESPIRATORY INFECTION 09/25/2010 CURRIE DO, AMELIA K 847.0 SPRAIN OF NECK 09/25/2010 CURRIE DO, AMELIA K 465.9 UPPER RESPIRATORY INFECTION 09/25/2010 CURRIE DO, AMELIA K 847.0 SPRAIN OF NECK 09/25/2010 CHARITY PAPER MILL MANAGER, MARCI A 465.9 UPPER RESPIRATORY INFECTION 09/25/2010 CHARITY PAPER MILL MANAGER, MARCI A 847.0 SPRAIN OF NECK 09/25/2010 MADL PAPER MILL MANAGER, JHONATAN L 465.9 UPPER RESPIRATORY INFECTION 09/25/2010 MADL PAPER MILL MANAGER, JHONATAN L 847.0 SPRAIN OF NECK 09/25/2010 465.9 UPPER RESPIRATORY INFECTION 09/25/2010 847.0 SPRAIN OF NECK 09/25/2010 CURRIE DO, AMELIA K 465.9 UPPER RESPIRATORY INFECTION 09/25/2010 CURRIE DO, AMELIA K 847.0 SPRAIN OF NECK 09/25/2010 CURRIE DO, AMELIA K 465.9 UPPER RESPIRATORY INFECTION 09/25/2010 CURRIE DO, AMELIA K 847.0 SPRAIN OF NECK 09/25/2010 MADL PAPER MILL MANAGER, JHONATAN L 465.9 UPPER RESPIRATORY INFECTION 09/25/2010 MADL PAPER MILL MANAGER, JHONATAN L 847.0 SPRAIN OF NECK 09/25/2010 MADL PAPER MILL MANAGER, JHONATAN L 465.9 UPPER RESPIRATORY INFECTION 09/25/2010 MADL PAPER MILL MANAGER, JHONATAN L 847.0 SPRAIN OF NECK 09/25/2010 MADL PAPER MILL MANAGER, JHONATAN L 465.9 UPPER RESPIRATORY INFECTION 09/25/2010 MADL PAPER MILL MANAGER, JHONATAN L 847.0 SPRAIN OF NECK 09/25/2010 CURRIE DO, AMELIA K 465.9 UPPER RESPIRATORY INFECTION 09/25/2010 CURRIE DO, AMELIA K 847.0 SPRAIN OF NECK 09/25/2010 MADL PAPER MILL MANAGER, JHONATAN L 465.9 UPPER RESPIRATORY INFECTION 09/25/2010 MADL PAPER MILL MANAGER, JHONATAN L 847.0 SPRAIN OF NECK 09/25/2010 MADL PAPER MILL MANAGER, JHONATAN L 465.9 UPPER RESPIRATORY INFECTION 09/25/2010 MADL PAPER MILL MANAGER, JHONATAN L 847.0 SPRAIN OF NECK 09/25/2010 MADL PAPER MILL MANAGER, JHONATAN L 465.9 UPPER RESPIRATORY INFECTION 09/25/2010 MADL PAPER MILL MANAGER, JHONATAN L 847.0 SPRAIN OF NECK 09/25/2010 CURRIE DO, AMELIA K 465.9 UPPER RESPIRATORY INFECTION 09/25/2010 CURRIE DO, AMELIA K 847.0 SPRAIN OF NECK 09/25/2010 MADL PAPER MILL MANAGER, JHONATAN L 465.9 UPPER RESPIRATORY INFECTION 09/25/2010 MADL PAPER MILL MANAGER, JHONATAN L 847.0 SPRAIN OF NECK 09/25/2010 MADL PAPER MILL MANAGER, JHONATAN L 465.9 UPPER RESPIRATORY INFECTION 09/25/2010 MADL PAPER MILL MANAGER, JHONATAN L 847.0 SPRAIN OF NECK 09/25/2010 MAVERICK PAPER MILL MANAGER, ZACHARIAH R 465.9 UPPER RESPIRATORY INFECTION 09/25/2010 MAVERICK PAPER MILL MANAGER, ZACHARIAH R 847.0 SPRAIN OF NECK 09/25/2010 MADL PAPER MILL MANAGER, JHONATAN L 465.9 UPPER RESPIRATORY INFECTION 09/25/2010 MADL PAPER MILL MANAGER, JHONATAN L 847.0 SPRAIN OF NECK 09/25/2010 MADL PAPER MILL MANAGER, JHONATAN L 465.9 UPPER RESPIRATORY INFECTION 09/25/2010 MADL PAPER MILL MANAGER, JHONATAN L 847.0 SPRAIN OF NECK 09/25/2010 MADL PAPER MILL MANAGER, JHONATAN L 465.9 UPPER RESPIRATORY INFECTION 09/25/2010 MADL PAPER MILL MANAGER, JHONATAN L 847.0 SPRAIN OF NECK 09/25/2010 MADL PAPER MILL MANAGER, JHONATAN L 465.9 UPPER RESPIRATORY INFECTION 09/25/2010 MADL PAPER MILL MANAGER, JHONATAN L 847.0 SPRAIN OF NECK 09/25/2010 MADL PAPER MILL MANAGER, JHONATAN L 465.9 UPPER RESPIRATORY INFECTION 09/25/2010 MADL PAPER MILL MANAGER, JHONATAN L 847.0 SPRAIN OF NECK 09/25/2010 MADL PAPER MILL MANAGER, JHONATAN L 465.9 UPPER RESPIRATORY INFECTION 09/25/2010 MADL PAPER MILL MANAGER, JHONATAN L 847.0 SPRAIN OF NECK 09/25/2010 CURRIE DO, AMELIA K 465.9 UPPER RESPIRATORY INFECTION 09/25/2010 CURRIE DO, AMELIA K 847.0 SPRAIN OF NECK 09/25/2010 MADL PAPER MILL MANAGER, JHONATAN L 465.9 UPPER RESPIRATORY INFECTION 09/25/2010 MADL PAPER MILL MANAGER, JHONATAN L 847.0 SPRAIN OF NECK 09/25/2010 BLANCHE PAPER MILL MANAGER, BHARAT S 465.9 UPPER RESPIRATORY INFECTION 09/25/2010 BLANCHE PAPER MILL MANAGER, BHARAT S 847.0 SPRAIN OF NECK 09/25/2010 465.9 UPPER RESPIRATORY INFECTION 09/25/2010 847.0 SPRAIN OF NECK 09/25/2010 MAVERICK PAPER MILL MANAGER, ZACHARIAH R 465.9 UPPER RESPIRATORY INFECTION 09/25/2010 MAVERICK PAPER MILL MANAGER, ZACHARIAH R 847.0 SPRAIN OF NECK 09/25/2010 ALMONTE DDS, SAE 465.9 UPPER RESPIRATORY INFECTION 09/25/2010 ALMONTE DDS, SAE 847.0 SPRAIN OF NECK 10/19/2010 Ot 466.0 10/19/2010 Ot 518.89 10/19/2010 Ot 786.2 10/20/2010 Ot 466.0 10/20/2010 Ot 786.2 11/04/2010 MAGDALENA EUCEDA MD 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 11/04/2010 MAGDALENA EUCEDA MD 473.9 UNSPECIFIED SINUSITIS (CHRONIC) 11/04/2010 MAGDALENA EUCEDA MD 786.6 SWELLING MASS OR LUMP IN CHEST 11/04/2010 MAGDALENA EUCEDA MD 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 11/04/2010 MAGDALENA EUCEDA MD 473.9 UNSPECIFIED SINUSITIS (CHRONIC) 11/04/2010 MAGDALENA EUCEDA MD 786.6 SWELLING MASS OR LUMP IN CHEST 11/04/2010 MAGDALENA EUCEDA MD 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 11/04/2010 MAGDALENA EUCEDA MD 473.9 UNSPECIFIED SINUSITIS (CHRONIC) 11/04/2010 MAGDALENA EUCEDA MD 786.6 SWELLING MASS OR LUMP IN CHEST 11/04/2010 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 11/04/2010 473.9 UNSPECIFIED SINUSITIS (CHRONIC) 11/04/2010 786.6 SWELLING MASS OR LUMP IN CHEST 11/04/2010 MAGDALENA EUCEDA MD 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 11/04/2010 MAGDALENA EUCEDA MD 473.9 UNSPECIFIED SINUSITIS (CHRONIC) 11/04/2010 MAGDALENA EUCEDA MD 786.6 SWELLING MASS OR LUMP IN CHEST 11/04/2010 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 11/04/2010 473.9 UNSPECIFIED SINUSITIS (CHRONIC) 11/04/2010 786.6 SWELLING MASS OR LUMP IN CHEST 11/04/2010 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 11/04/2010 473.9 UNSPECIFIED SINUSITIS (CHRONIC) 11/04/2010 786.6 SWELLING MASS OR LUMP IN CHEST 11/04/2010 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 11/04/2010 473.9 UNSPECIFIED SINUSITIS (CHRONIC) 11/04/2010 786.6 SWELLING MASS OR LUMP IN CHEST 11/04/2010 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 11/04/2010 473.9 UNSPECIFIED SINUSITIS (CHRONIC) 11/04/2010 786.6 SWELLING MASS OR LUMP IN CHEST 11/04/2010 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 11/04/2010 473.9 UNSPECIFIED SINUSITIS (CHRONIC) 11/04/2010 786.6 SWELLING MASS OR LUMP IN CHEST 11/04/2010 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 11/04/2010 473.9 UNSPECIFIED SINUSITIS (CHRONIC) 11/04/2010 786.6 SWELLING MASS OR LUMP IN CHEST 11/04/2010 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 11/04/2010 473.9 UNSPECIFIED SINUSITIS (CHRONIC) 11/04/2010 786.6 SWELLING MASS OR LUMP IN CHEST 11/04/2010 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 11/04/2010 473.9 UNSPECIFIED SINUSITIS (CHRONIC) 11/04/2010 786.6 SWELLING MASS OR LUMP IN CHEST 11/04/2010 FELIBERTO GARCIA APRN 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 11/04/2010 JENNIFER GARCIA APRNYL A 473.9 UNSPECIFIED SINUSITIS (CHRONIC) 11/04/2010 RADHA FUCHS, FELIBERTO A 786.6 SWELLING MASS OR LUMP IN CHEST 11/04/2010 MAGDALENA EUCEDA MD 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 11/04/2010 MAGDALENA EUCEDA MD 473.9 UNSPECIFIED SINUSITIS (CHRONIC) 11/04/2010 MAGDALENA EUCEDA MD 786.6 SWELLING MASS OR LUMP IN CHEST 11/04/2010 MAGDALENA EUCEDA MD 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 11/04/2010 MAGDALENA EUCEDA MD 473.9 UNSPECIFIED SINUSITIS (CHRONIC) 11/04/2010 MAGDALENA EUCEDA MD 786.6 SWELLING MASS OR LUMP IN CHEST 11/04/2010 ALLI HUNT MD 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 11/04/2010 ALLI HUNT MD 473.9 UNSPECIFIED SINUSITIS (CHRONIC) 11/04/2010 ALLI HUNT MD 786.6 SWELLING MASS OR LUMP IN CHEST 11/04/2010 MAGDALENA EUCEDA MD 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 11/04/2010 MAGDALENA EUCEDA MD 473.9 UNSPECIFIED SINUSITIS (CHRONIC) 11/04/2010 MAGDALENA EUCEDA MD 786.6 SWELLING MASS OR LUMP IN CHEST 11/04/2010 CURRIE DO, AMELIA K 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 11/04/2010 CURRIE DO, AMELIA K 473.9 UNSPECIFIED SINUSITIS (CHRONIC) 11/04/2010 CURRIE DO, AMELIA K 786.6 SWELLING MASS OR LUMP IN CHEST 11/04/2010 CURRIE DO, AMELIA K 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 11/04/2010 CURRIE DO, AMELIA K 473.9 UNSPECIFIED SINUSITIS (CHRONIC) 11/04/2010 CURRIE DO, AMELIA K 786.6 SWELLING MASS OR LUMP IN CHEST 11/04/2010 CURRIE DO, AMELIA K 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 11/04/2010 CURRIE DO, AMELIA K 473.9 UNSPECIFIED SINUSITIS (CHRONIC) 11/04/2010 CURRIE DO, AMELIA K 786.6 SWELLING MASS OR LUMP IN CHEST 11/04/2010 CURRIE DO, AMELIA K 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 11/04/2010 CURRIE DO, AMELIA K 473.9 UNSPECIFIED SINUSITIS (CHRONIC) 11/04/2010 CURRIE DO, AMELIA K 786.6 SWELLING MASS OR LUMP IN CHEST 11/04/2010 CURRIE DO, AMELIA K 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 11/04/2010 CURRIE DO, AMELIA K 473.9 UNSPECIFIED SINUSITIS (CHRONIC) 11/04/2010 CURRIE DO, AMELIA K 786.6 SWELLING MASS OR LUMP IN CHEST 11/04/2010 CHARITY PAPER MILL MANAGER, MARCI A 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 11/04/2010 CHARITY PAPER MILL MANAGER, MARCI A 473.9 UNSPECIFIED SINUSITIS (CHRONIC) 11/04/2010 CHARITY PAPER MILL MANAGER, MARCI A 786.6 SWELLING MASS OR LUMP IN CHEST 11/04/2010 MADL PAPER MILL MANAGER, JHONATAN L 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 11/04/2010 MADL PAPER MILL MANAGER, JHONATAN L 473.9 UNSPECIFIED SINUSITIS (CHRONIC) 11/04/2010 MADL PAPER MILL MANAGER, JHONATAN L 786.6 SWELLING MASS OR LUMP IN CHEST 11/04/2010 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 11/04/2010 473.9 UNSPECIFIED SINUSITIS (CHRONIC) 11/04/2010 786.6 SWELLING MASS OR LUMP IN CHEST 11/04/2010 CURRIE DO, AMELIA K 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 11/04/2010 CURRIE DO, AMELIA K 473.9 UNSPECIFIED SINUSITIS (CHRONIC) 11/04/2010 CURRIE DO, AMELIA K 786.6 SWELLING MASS OR LUMP IN CHEST 11/04/2010 CURRIE DO, AMELIA K 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 11/04/2010 CURRIE DO, AMELIA K 473.9 UNSPECIFIED SINUSITIS (CHRONIC) 11/04/2010 CURRIE DO, AMELIA K 786.6 SWELLING MASS OR LUMP IN CHEST 11/04/2010 MADL PAPER MILL MANAGER, JHONATAN L 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 11/04/2010 MADL PAPER MILL MANAGER, JHONATAN L 473.9 UNSPECIFIED SINUSITIS (CHRONIC) 11/04/2010 MADL PAPER MILL MANAGER, JHONATAN L 786.6 SWELLING MASS OR LUMP IN CHEST 11/04/2010 MADL PAPER MILL MANAGER, JHONATAN L 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 11/04/2010 MADL PAPER MILL MANAGER, JHONATAN L 473.9 UNSPECIFIED SINUSITIS (CHRONIC) 11/04/2010 MADL PAPER MILL MANAGER, JHONATAN L 786.6 SWELLING MASS OR LUMP IN CHEST 11/04/2010 MADL PAPER MILL MANAGER, JHONATAN L 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 11/04/2010 MADL PAPER MILL MANAGER, JHONATAN L 473.9 UNSPECIFIED SINUSITIS (CHRONIC) 11/04/2010 MADL PAPER MILL MANAGER, JHONATAN L 786.6 SWELLING MASS OR LUMP IN CHEST 11/04/2010 CURRIE DO, AMELIA K 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 11/04/2010 CURRIE DO, AMELIA K 473.9 UNSPECIFIED SINUSITIS (CHRONIC) 11/04/2010 CURRIE DO, AMELIA K 786.6 SWELLING MASS OR LUMP IN CHEST 11/04/2010 MADL PAPER MILL MANAGER, JHONATAN L 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 11/04/2010 MADL PAPER MILL MANAGER, JHONATAN L 473.9 UNSPECIFIED SINUSITIS (CHRONIC) 11/04/2010 MADL PAPER MILL MANAGER, JHONATAN L 786.6 SWELLING MASS OR LUMP IN CHEST 11/04/2010 MADL PAPER MILL MANAGER, JHONATAN L 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 11/04/2010 MADL PAPER MILL MANAGER, JHONATAN L 473.9 UNSPECIFIED SINUSITIS (CHRONIC) 11/04/2010 MADL PAPER MILL MANAGER, JHONATAN L 786.6 SWELLING MASS OR LUMP IN CHEST 11/04/2010 MADL PAPER MILL MANAGER, JHONATAN L 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 11/04/2010 MADL PAPER MILL MANAGER, JHONATAN L 473.9 UNSPECIFIED SINUSITIS (CHRONIC) 11/04/2010 MADL PAPER MILL MANAGER, JHONATAN L 786.6 SWELLING MASS OR LUMP IN CHEST 11/04/2010 CURRIE DO, AMELIA K 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 11/04/2010 CURRIE DO, AMELIA K 473.9 UNSPECIFIED SINUSITIS (CHRONIC) 11/04/2010 CURRIE DO, AMELIA K 786.6 SWELLING MASS OR LUMP IN CHEST 11/04/2010 MADL PAPER MILL MANAGER, JHONATAN L 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 11/04/2010 MADL PAPER MILL MANAGER, JHONATAN L 473.9 UNSPECIFIED SINUSITIS (CHRONIC) 11/04/2010 MADL PAPER MILL MANAGER, JHONATAN L 786.6 SWELLING MASS OR LUMP IN CHEST 11/04/2010 MADL PAPER MILL MANAGER, JHONATAN L 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 11/04/2010 MADL PAPER MILL MANAGER, JHONATAN L 473.9 UNSPECIFIED SINUSITIS (CHRONIC) 11/04/2010 MADL PAPER MILL MANAGER, JHONATAN L 786.6 SWELLING MASS OR LUMP IN CHEST 11/04/2010 MAVERICK PAPER MILL MANAGER, ZACHARIAH R 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 11/04/2010 MAVERICK PAPER MILL MANAGER, ZACHARIAH R 473.9 UNSPECIFIED SINUSITIS (CHRONIC) 11/04/2010 MAVERICK PAPER MILL MANAGER, ZACHARIAH R 786.6 SWELLING MASS OR LUMP IN CHEST 11/04/2010 MADL PAPER MILL MANAGER, JHONATAN L 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 11/04/2010 MADL PAPER MILL MANAGER, JHONATAN L 473.9 UNSPECIFIED SINUSITIS (CHRONIC) 11/04/2010 MADL PAPER MILL MANAGER, JHONATAN L 786.6 SWELLING MASS OR LUMP IN CHEST 11/04/2010 MADL PAPER MILL MANAGER, JHONATAN L 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 11/04/2010 MADL PAPER MILL MANAGER, JHONATAN L 473.9 UNSPECIFIED SINUSITIS (CHRONIC) 11/04/2010 MADL PAPER MILL MANAGER, JHONATAN L 786.6 SWELLING MASS OR LUMP IN CHEST 11/04/2010 MADL PAPER MILL MANAGER, JHONATAN L 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 11/04/2010 MADL PAPER MILL MANAGER, JHONATAN L 473.9 UNSPECIFIED SINUSITIS (CHRONIC) 11/04/2010 MADL PAPER MILL MANAGER, JHONATAN L 786.6 SWELLING MASS OR LUMP IN CHEST 11/04/2010 MADL PAPER MILL MANAGER, JHONATAN L 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 11/04/2010 MADL PAPER MILL MANAGER, JHONATAN L 473.9 UNSPECIFIED SINUSITIS (CHRONIC) 11/04/2010 MADL PAPER MILL MANAGER, JHONATAN L 786.6 SWELLING MASS OR LUMP IN CHEST 11/04/2010 MADL PAPER MILL MANAGER, JHONATAN L 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 11/04/2010 MADL PAPER MILL MANAGER, JHONATAN L 473.9 UNSPECIFIED SINUSITIS (CHRONIC) 11/04/2010 MADL PAPER MILL MANAGER, JHONATAN L 786.6 SWELLING MASS OR LUMP IN CHEST 11/04/2010 MADL PAPER MILL MANAGER, JHONATAN L 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 11/04/2010 MADL PAPER MILL MANAGER, JHONATAN L 473.9 UNSPECIFIED SINUSITIS (CHRONIC) 11/04/2010 MADL PAPER MILL MANAGER, JHONATAN L 786.6 SWELLING MASS OR LUMP IN CHEST 11/04/2010 CURRIE DO, AMELIA K 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 11/04/2010 CURRIE DO, AMELIA K 473.9 UNSPECIFIED SINUSITIS (CHRONIC) 11/04/2010 CURRIE DO, AMELIA K 786.6 SWELLING MASS OR LUMP IN CHEST 11/04/2010 MADL PAPER MILL MANAGER, JHONATAN L 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 11/04/2010 MADL PAPER MILL MANAGER, JHONATAN L 473.9 UNSPECIFIED SINUSITIS (CHRONIC) 11/04/2010 MADL PAPER MILL MANAGER, JHONATAN L 786.6 SWELLING MASS OR LUMP IN CHEST 11/04/2010 BLANCHE PAPER MILL MANAGER, BHARAT S 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 11/04/2010 BLANCHE PAPER MILL MANAGER, BHARAT S 473.9 UNSPECIFIED SINUSITIS (CHRONIC) 11/04/2010 BLANCHE PAPER MILL MANAGER, BHARAT S 786.6 SWELLING MASS OR LUMP IN CHEST 11/04/2010 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 11/04/2010 473.9 UNSPECIFIED SINUSITIS (CHRONIC) 11/04/2010 786.6 SWELLING MASS OR LUMP IN CHEST 11/04/2010 MAVERICK GUTIERREZN, ZACHARIAH R 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 11/04/2010 MAVERICK FUCHS ZACHARIAH R 473.9 UNSPECIFIED SINUSITIS (CHRONIC) 11/04/2010 MAVERICK FUCHS ZACHARIAH R 786.6 SWELLING MASS OR LUMP IN CHEST 11/04/2010 SUZY SIMMSS, SAE 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 11/04/2010 SUZY SIMMSS, SAE 473.9 UNSPECIFIED SINUSITIS (CHRONIC) 11/04/2010 SUZY SIMMSS, SAE 786.6 SWELLING MASS OR LUMP IN CHEST 11/08/2010 Ot 490 BRONCHITIS NOS 11/08/2010 Ot 786.2 COUGH 12/22/2010 MAGDALENA EUCEDA MD 278.01 OBESITY MORBID BMI >40 12/22/2010 MAGDALENA EUCEDA MD 278.01 OBESITY MORBID BMI >40 12/22/2010 MAGDALENA EUCEDA MD 278.01 OBESITY MORBID BMI >40 12/22/2010 278.01 OBESITY MORBID BMI >40 12/22/2010 MAGDALENA EUCEDA MD 278.01 OBESITY MORBID BMI >40 12/22/2010 278.01 OBESITY MORBID BMI >40 12/22/2010 278.01 OBESITY MORBID BMI >40 12/22/2010 278.01 OBESITY MORBID BMI >40 12/22/2010 278.01 OBESITY MORBID BMI >40 12/22/2010 278.01 OBESITY MORBID BMI >40 12/22/2010 278.01 OBESITY MORBID BMI >40 12/22/2010 278.01 OBESITY MORBID BMI >40 12/22/2010 278.01 OBESITY MORBID BMI >40 12/22/2010 FELIBERTO GARCIA APRN 278.01 OBESITY MORBID BMI >40 12/22/2010 MAGDALENA EUCEDA MD 278.01 OBESITY MORBID BMI >40 12/22/2010 MAGDALENA EUCEDA MD 278.01 OBESITY MORBID BMI >40 12/22/2010 ALLI HUNT MD 278.01 OBESITY MORBID BMI >40 12/22/2010 MAGDALENA EUCEDA MD 278.01 OBESITY MORBID BMI >40 12/22/2010 CURRIE DO AMELIA K 278.01 OBESITY MORBID BMI >40 12/22/2010 CURRIE DO AMELIA K 278.01 OBESITY MORBID BMI >40 12/22/2010 CURRIE DO AMELIA K 278.01 OBESITY MORBID BMI >40 12/22/2010 CURRIE DO AMELIA K 278.01 OBESITY MORBID BMI >40 12/22/2010 CURRIE DO AMELIA K 278.01 OBESITY MORBID BMI >40 12/22/2010 MARCI NASH APRN 278.01 OBESITY MORBID BMI >40 12/22/2010 XIOMARAL PAPER MILL MANAGER, JHONATAN L 278.01 OBESITY MORBID BMI >40 12/22/2010 278.01 OBESITY MORBID BMI >40 12/22/2010 CURRIE DO, AMELIA K 278.01 OBESITY MORBID BMI >40 12/22/2010 CURRIE DO, AMELIA K 278.01 OBESITY MORBID BMI >40 12/22/2010 MAD PAPER MILL MANAGER, JHONATAN L 278.01 OBESITY MORBID BMI >40 12/22/2010 MAD PAPER MILL MANAGER, JHONATAN L 278.01 OBESITY MORBID BMI >40 12/22/2010 MAD PAPER MILL MANAGER, JHONATAN L 278.01 OBESITY MORBID BMI >40 12/22/2010 CURRIE DO, AMELIA K 278.01 OBESITY MORBID BMI >40 12/22/2010 MAD PAPER MILL MANAGER, JHONATAN L 278.01 OBESITY MORBID BMI >40 12/22/2010 [facility] PAPER MILL MANAGER, JHONATAN L 278.01 OBESITY MORBID BMI >40 12/22/2010 [facility] PAPER MILL MANAGER, JHONATAN L 278.01 OBESITY MORBID BMI >40 12/22/2010 CURRIE DO, AMELIA K 278.01 OBESITY MORBID BMI >40 12/22/2010 XIOMARA PAPER MILL MANAGER, JHONATAN L 278.01 OBESITY MORBID BMI >40 12/22/2010 XIOMARA PAPER MILL MANAGER, JHONATAN L 278.01 OBESITY MORBID BMI >40 12/22/2010 MAVERICK SHILA ZACHARIAH R 278.01 OBESITY MORBID BMI >40 12/22/2010 XI[facility]ARA PAPER MILL MANAGER, JHONATAN L 278.01 OBESITY MORBID BMI >40 12/22/2010 XIOMARA PAPER MILL MANAGER, JHONATAN L 278.01 OBESITY MORBID BMI >40 12/22/2010 XIOMARA PAPER MILL MANAGER, JHONATAN L 278.01 OBESITY MORBID BMI >40 12/22/2010 XI[facility]ARA PAPER MILL MANAGER, JHONATAN L 278.01 OBESITY MORBID BMI >40 12/22/2010 XI[facility]ARA PAPER MILL MANAGER, JHONATAN L 278.01 OBESITY MORBID BMI >40 12/22/2010 XIOMARA PAPER MILL MANAGER, JHONATAN L 278.01 OBESITY MORBID BMI >40 12/22/2010 CURRIE DO, AMELIA K 278.01 OBESITY MORBID BMI >40 12/22/2010 MAD PAPER MILL MANAGER, JHONATAN L 278.01 OBESITY MORBID BMI >40 12/22/2010 BLANCHE FUCHSGILDARDOBHARAT S 278.01 OBESITY MORBID BMI >40 12/22/2010 278.01 OBESITY MORBID BMI >40 12/22/2010 MAVERICK FUCHSZACHARIAH 278.01 OBESITY MORBID BMI >40 12/22/2010 SAE ALMONTE DDS 278.01 OBESITY MORBID BMI >40 12/29/2010 Ot 599.0 URIN TRACT INFECTION NOS 12/29/2010 Ot 788.41 URINARY FREQUENCY 03/24/2011 MAGDALENA EUCEDA MD 525.9 tooth pain 03/24/2011 MAGDALENA EUCEDA MD 525.9 tooth pain 03/24/2011 MAGDALENA EUCEDA MD 525.9 tooth pain 03/24/2011 525.9 tooth pain 03/24/2011 MAGDALENA EUCEDA MD 525.9 tooth pain 03/24/2011 525.9 tooth pain 03/24/2011 525.9 tooth pain 03/24/2011 525.9 tooth pain 03/24/2011 525.9 tooth pain 03/24/2011 525.9 tooth pain 03/24/2011 525.9 tooth pain 03/24/2011 525.9 tooth pain 03/24/2011 525.9 tooth pain 03/24/2011 FELIBERTO GARCIA APRN A 525.9 tooth pain 03/24/2011 MAGDALENA EUCEDA MD 525.9 tooth pain 03/24/2011 MAGDALENA EUCEDA MD 525.9 tooth pain 03/24/2011 MARILEE CHAVIS, ALLI Shirley 525.9 tooth pain 03/24/2011 MAGDALENA EUCEDA MD 525.9 tooth pain 03/24/2011 CURRIE DO, AMELIA K 525.9 TOOTH PAIN 03/24/2011 CURRIE DO, AMELIA K 525.9 TOOTH PAIN 03/24/2011 CURRIE DO, AMELIA K 525.9 TOOTH PAIN 03/24/2011 CURRIE DO, AMELIA K 525.9 TOOTH PAIN 03/24/2011 CURRIE DO, AMELIA K 525.9 TOOTH PAIN 03/24/2011 MARCI NASH APRN A 525.9 TOOTH PAIN 03/24/2011 JHONATAN EWING APRN 525.9 TOOTH PAIN 03/24/2011 525.9 TOOTH PAIN 03/24/2011 CURRIE DO, AMELIA K 525.9 TOOTH PAIN 03/24/2011 CURRIE DO, AMELIA K 525.9 TOOTH PAIN 03/24/2011 MADL PAPER MILL MANAGER, JHONATAN L 525.9 TOOTH PAIN 03/24/2011 MADL PAPER MILL MANAGER, JHONATAN L 525.9 TOOTH PAIN 03/24/2011 MADL PAPER MILL MANAGER, JHONATAN L 525.9 TOOTH PAIN 03/24/2011 CURRIE DO, AMELIA K 525.9 TOOTH PAIN 03/24/2011 MADL PAPER MILL MANAGER, JHONATAN L 525.9 TOOTH PAIN 03/24/2011 MADL PAPER MILL MANAGER, JHONATAN L 525.9 TOOTH PAIN 03/24/2011 MADL PAPER MILL MANAGER, JHONATAN L 525.9 TOOTH PAIN 03/24/2011 CURRIE DO, AMELIA K 525.9 TOOTH PAIN 03/24/2011 MADL PAPER MILL MANAGER, JHONATAN L 525.9 TOOTH PAIN 03/24/2011 MADL PAPER MILL MANAGER, JHONATAN L 525.9 TOOTH PAIN 03/24/2011 MAVERICK PAPER MILL MANAGER, ZACHARIAH R 525.9 TOOTH PAIN 03/24/2011 MADL PAPER MILL MANAGER, JHONATAN L 525.9 TOOTH PAIN 03/24/2011 MADL PAPER MILL MANAGER, JHONATAN L 525.9 TOOTH PAIN 03/24/2011 MADL PAPER MILL MANAGER, JHONATAN L 525.9 TOOTH PAIN 03/24/2011 MADL PAPER MILL MANAGER, JHONATAN L 525.9 TOOTH PAIN 03/24/2011 MADL PAPER MILL MANAGER, JHONATAN L 525.9 TOOTH PAIN 03/24/2011 MADL PAPER MILL MANAGER, JHONATAN L 525.9 TOOTH PAIN 03/24/2011 CURRIE DO, AMELIA K 525.9 TOOTH PAIN 03/24/2011 MADL PAPER MILL MANAGER, JHONATAN L 525.9 TOOTH PAIN 03/24/2011 BLANCHE PAPER MILL MANAGER, BHARAT S 525.9 TOOTH PAIN 03/24/2011 525.9 TOOTH PAIN 03/24/2011 MAVERICK PAPER MILL MANAGER, ZACHARIAH R 525.9 TOOTH PAIN 03/24/2011 SAE ALMONTE DDS 525.9 TOOTH PAIN 07/12/2012 OK CHAVIS, MAGDALENA 401.1 ESSENTIAL HYPERTENSION BENIGN 07/12/2012 OK CHAVIS, MAGDALENA 414.00 CAD 07/12/2012 MAGDALENA EUCEDA MD 401.1 ESSENTIAL HYPERTENSION BENIGN 07/12/2012 OK CHAVIS, MAGDALENA 414.00 CAD 07/12/2012 MAGDALENA EUCEDA MD 401.1 ESSENTIAL HYPERTENSION BENIGN 07/12/2012 MAGDALENA EUCEDA MD 414.00 CAD 07/12/2012 401.1 ESSENTIAL HYPERTENSION BENIGN 07/12/2012 414.00 CAD 07/12/2012 MAGDALENA EUCEDA MD 401.1 ESSENTIAL HYPERTENSION BENIGN 07/12/2012 MAGDALENA EUCEDA MD 414.00 CAD 07/12/2012 401.1 ESSENTIAL HYPERTENSION BENIGN 07/12/2012 414.00 ASYMPTOMATIC CORONARY ARTERIOSCLEROSIS 07/12/2012 401.1 ESSENTIAL HYPERTENSION BENIGN 07/12/2012 414.00 ASYMPTOMATIC CORONARY ARTERIOSCLEROSIS 07/12/2012 401.1 ESSENTIAL HYPERTENSION BENIGN 07/12/2012 414.00 ASYMPTOMATIC CORONARY ARTERIOSCLEROSIS 07/12/2012 401.1 ESSENTIAL HYPERTENSION BENIGN 07/12/2012 414.00 ASYMPTOMATIC CORONARY ARTERIOSCLEROSIS 07/12/2012 401.1 ESSENTIAL HYPERTENSION BENIGN 07/12/2012 414.00 ASYMPTOMATIC CORONARY ARTERIOSCLEROSIS 07/12/2012 401.1 ESSENTIAL HYPERTENSION BENIGN 07/12/2012 414.00 ASYMPTOMATIC CORONARY ARTERIOSCLEROSIS 07/12/2012 401.1 ESSENTIAL HYPERTENSION BENIGN 07/12/2012 414.00 ASYMPTOMATIC CORONARY ARTERIOSCLEROSIS 07/12/2012 401.1 ESSENTIAL HYPERTENSION BENIGN 07/12/2012 414.00 ASYMPTOMATIC CORONARY ARTERIOSCLEROSIS 07/12/2012 FEILBERTO GARCIA APRN A 401.1 ESSENTIAL HYPERTENSION BENIGN 07/12/2012 FELIBERTO GARCIA APRN A 414.00 ASYMPTOMATIC CORONARY ARTERIOSCLEROSIS 07/12/2012 MAGDALENA EUCEDA MD 401.1 ESSENTIAL HYPERTENSION BENIGN 07/12/2012 MAGDALENA EUCEDA MD 414.00 ASYMPTOMATIC CORONARY ARTERIOSCLEROSIS 07/12/2012 MAGDALENA EUCEDA MD 401.1 ESSENTIAL HYPERTENSION BENIGN 07/12/2012 MAGDALENA EUCEDA MD 414.00 ASYMPTOMATIC CORONARY ARTERIOSCLEROSIS 07/12/2012 ALLI HUNT MD 401.1 ESSENTIAL HYPERTENSION BENIGN 07/12/2012 ALLI HUNT MD 414.00 ASYMPTOMATIC CORONARY ARTERIOSCLEROSIS 07/12/2012 MAGDALENA EUCEDA MD 401.1 ESSENTIAL HYPERTENSION BENIGN 07/12/2012 MAGDALENA EUCEDA MD 414.00 CAD 07/12/2012 CURRIE DO, AMELIA K 401.1 ESSENTIAL HYPERTENSION BENIGN 07/12/2012 CURRIE DO, AMELIA K 414.00 ASYMPTOMATIC CORONARY ARTERIOSCLEROSIS 07/12/2012 CURRIE DO, AMELIA K 401.1 ESSENTIAL HYPERTENSION BENIGN 07/12/2012 CURRIE DO, AMELIA K 414.00 ASYMPTOMATIC CORONARY ARTERIOSCLEROSIS 07/12/2012 CURRIE DO, AMELIA K 401.1 ESSENTIAL HYPERTENSION BENIGN 07/12/2012 CURRIE DO, AMELIA K 414.00 ASYMPTOMATIC CORONARY ARTERIOSCLEROSIS 07/12/2012 CURRIE DO, AMELIA K 401.1 ESSENTIAL HYPERTENSION BENIGN 07/12/2012 CURRIE DO, AMELIA K 414.00 ASYMPTOMATIC CORONARY ARTERIOSCLEROSIS 07/12/2012 CURRIE DO, AMELIA K 401.1 ESSENTIAL HYPERTENSION BENIGN 07/12/2012 CURRIE DO, AMELIA K 414.00 ASYMPTOMATIC CORONARY ARTERIOSCLEROSIS 07/12/2012 CHARITY PAPER MILL MANAGER, MARCI A 401.1 ESSENTIAL HYPERTENSION BENIGN 07/12/2012 CHARITY PAPER MILL MANAGER, MARCI A 414.00 ASYMPTOMATIC CORONARY ARTERIOSCLEROSIS 07/12/2012 MADL PAPER MILL MANAGER, JHONATAN L 401.1 ESSENTIAL HYPERTENSION BENIGN 07/12/2012 MADL PAPER MILL MANAGER, JHONATAN L 414.00 ASYMPTOMATIC CORONARY ARTERIOSCLEROSIS 07/12/2012 401.1 ESSENTIAL HYPERTENSION BENIGN 07/12/2012 414.00 ASYMPTOMATIC CORONARY ARTERIOSCLEROSIS 07/12/2012 CURRIE DO, AMELIA K 401.1 ESSENTIAL HYPERTENSION BENIGN 07/12/2012 CURRIE DO, AMELIA K 414.00 ASYMPTOMATIC CORONARY ARTERIOSCLEROSIS 07/12/2012 CURRIE DO, AMELIA K 401.1 ESSENTIAL HYPERTENSION BENIGN 07/12/2012 CURRIE DO, AMELIA K 414.00 ASYMPTOMATIC CORONARY ARTERIOSCLEROSIS 07/12/2012 MADL PAPER MILL MANAGER, JHONATAN L 401.1 ESSENTIAL HYPERTENSION BENIGN 07/12/2012 MADL PAPER MILL MANAGER, JHONATAN L 414.00 ASYMPTOMATIC CORONARY ARTERIOSCLEROSIS 07/12/2012 MADL PAPER MILL MANAGER, JHONATAN L 401.1 ESSENTIAL HYPERTENSION BENIGN 07/12/2012 MADL PAPER MILL MANAGER, JHONATAN L 414.00 ASYMPTOMATIC CORONARY ARTERIOSCLEROSIS 07/12/2012 MADL PAPER MILL MANAGER, JHONATAN L 401.1 ESSENTIAL HYPERTENSION BENIGN 07/12/2012 MADL PAPER MILL MANAGER, JHONATAN L 414.00 ASYMPTOMATIC CORONARY ARTERIOSCLEROSIS 07/12/2012 CURRIE DO, AMELIA K 401.1 ESSENTIAL HYPERTENSION BENIGN 07/12/2012 CURRIE DO, AMELIA K 414.00 ASYMPTOMATIC CORONARY ARTERIOSCLEROSIS 07/12/2012 MADL PAPER MILL MANAGER, JHONATAN L 401.1 ESSENTIAL HYPERTENSION BENIGN 07/12/2012 MADL PAPER MILL MANAGER, JHONATAN L 414.00 ASYMPTOMATIC CORONARY ARTERIOSCLEROSIS 07/12/2012 MADL PAPER MILL MANAGER, JHONATAN L 401.1 ESSENTIAL HYPERTENSION BENIGN 07/12/2012 MADL PAPER MILL MANAGER, JHONATAN L 414.00 ASYMPTOMATIC CORONARY ARTERIOSCLEROSIS 07/12/2012 MADL PAPER MILL MANAGER, JHONATAN L 401.1 ESSENTIAL HYPERTENSION BENIGN 07/12/2012 MADL PAPER MILL MANAGER, JHONATAN L 414.00 ASYMPTOMATIC CORONARY ARTERIOSCLEROSIS 07/12/2012 CURRIE DO, AMELIA K 401.1 ESSENTIAL HYPERTENSION BENIGN 07/12/2012 CURRIE DO, AMELIA K 414.00 ASYMPTOMATIC CORONARY ARTERIOSCLEROSIS 07/12/2012 MADL PAPER MILL MANAGER, JHONATAN L 401.1 ESSENTIAL HYPERTENSION BENIGN 07/12/2012 MADL PAPER MILL MANAGER, JHONATAN L 414.00 ASYMPTOMATIC CORONARY ARTERIOSCLEROSIS 07/12/2012 MADL PAPER MILL MANAGER, JHONATAN L 401.1 ESSENTIAL HYPERTENSION BENIGN 07/12/2012 MADL PAPER MILL MANAGER, JHONATAN L 414.00 ASYMPTOMATIC CORONARY ARTERIOSCLEROSIS 07/12/2012 MAVERICK PAPER MILL MANAGER, ZACHARIAH R 401.1 ESSENTIAL HYPERTENSION BENIGN 07/12/2012 MAVERICK PAPER MILL MANAGER, ZACHARIAH R 414.00 ASYMPTOMATIC CORONARY ARTERIOSCLEROSIS 07/12/2012 MADL PAPER MILL MANAGER, JHONATAN L 401.1 ESSENTIAL HYPERTENSION BENIGN 07/12/2012 MADL PAPER MILL MANAGER, JHONATAN L 414.00 ASYMPTOMATIC CORONARY ARTERIOSCLEROSIS 07/12/2012 MADL PAPER MILL MANAGER, JHONATAN L 401.1 ESSENTIAL HYPERTENSION BENIGN 07/12/2012 MADL PAPER MILL MANAGER, JHONATAN L 414.00 ASYMPTOMATIC CORONARY ARTERIOSCLEROSIS 07/12/2012 MADL PAPER MILL MANAGER, JHONATAN L 401.1 ESSENTIAL HYPERTENSION BENIGN 07/12/2012 MADL PAPER MILL MANAGER, JHONATAN L 414.00 ASYMPTOMATIC CORONARY ARTERIOSCLEROSIS 07/12/2012 MADL PAPER MILL MANAGER, JHONATAN L 401.1 ESSENTIAL HYPERTENSION BENIGN 07/12/2012 MADL PAPER MILL MANAGER, JHONATAN L 414.00 ASYMPTOMATIC CORONARY ARTERIOSCLEROSIS 07/12/2012 MADL PAPER MILL MANAGER, JHONATAN L 401.1 ESSENTIAL HYPERTENSION BENIGN 07/12/2012 MADL PAPER MILL MANAGER, JHONATAN L 414.00 ASYMPTOMATIC CORONARY ARTERIOSCLEROSIS 07/12/2012 MADL PAPER MILL MANAGER, JHONATAN L 401.1 ESSENTIAL HYPERTENSION BENIGN 07/12/2012 MADL PAPER MILL MANAGER, JHONATAN L 414.00 ASYMPTOMATIC CORONARY ARTERIOSCLEROSIS 07/12/2012 CURRIE DO, AMELIA K 401.1 ESSENTIAL HYPERTENSION BENIGN 07/12/2012 CURRIE DO, AMELIA K 414.00 ASYMPTOMATIC CORONARY ARTERIOSCLEROSIS 07/12/2012 MADL PAPER MILL MANAGER, JHONATAN L 401.1 ESSENTIAL HYPERTENSION BENIGN 07/12/2012 MADL PAPER MILL MANAGER, JHONATAN L 414.00 ASYMPTOMATIC CORONARY ARTERIOSCLEROSIS 07/12/2012 BLANCHE PAPER MILL MANAGER, BHARAT S 401.1 ESSENTIAL HYPERTENSION BENIGN 07/12/2012 BLANCHE PAPER MILL MANAGER, BHARAT S 414.00 ASYMPTOMATIC CORONARY ARTERIOSCLEROSIS 07/12/2012 401.1 ESSENTIAL HYPERTENSION BENIGN 07/12/2012 414.00 ASYMPTOMATIC CORONARY ARTERIOSCLEROSIS 07/12/2012 MAVERICK PAPER MILL MANAGER, ZACHARIAH R 401.1 ESSENTIAL HYPERTENSION BENIGN 07/12/2012 MAVERICK PAPER MILL MANAGER, ZACHARIAH R 414.00 ASYMPTOMATIC CORONARY ARTERIOSCLEROSIS 07/12/2012 ALMONTE DDS, SAE 401.1 ESSENTIAL HYPERTENSION BENIGN 07/12/2012 ALMONTE DDS, SAE 414.00 ASYMPTOMATIC CORONARY ARTERIOSCLEROSIS 01/16/2013 V65.49 OTHER SPECIFIED COUNSELING 01/16/2013 V73.81 HPV SCREENING 01/16/2013 V76.10 BREAST CANCER SCREENING 01/16/2013 V76.51 SPECIAL SCREENING FOR MALIGNANT NEOPLASMS COLON 01/16/2013 V65.49 OTHER SPECIFIED COUNSELING 01/16/2013 V73.81 HPV SCREENING 01/16/2013 V76.10 BREAST CANCER SCREENING 01/16/2013 V76.51 SPECIAL SCREENING FOR MALIGNANT NEOPLASMS COLON 01/16/2013 V65.49 OTHER SPECIFIED COUNSELING 01/16/2013 V73.81 HPV SCREENING 01/16/2013 V76.10 BREAST CANCER SCREENING 01/16/2013 V76.51 SPECIAL SCREENING FOR MALIGNANT NEOPLASMS COLON 01/16/2013 V65.49 OTHER SPECIFIED COUNSELING 01/16/2013 V73.81 HPV SCREENING 01/16/2013 V76.10 BREAST CANCER SCREENING 01/16/2013 V76.51 SPECIAL SCREENING FOR MALIGNANT NEOPLASMS COLON 01/16/2013 V65.49 OTHER SPECIFIED COUNSELING 01/16/2013 V73.81 HPV SCREENING 01/16/2013 V76.10 BREAST CANCER SCREENING 01/16/2013 V76.51 SPECIAL SCREENING FOR MALIGNANT NEOPLASMS COLON 01/16/2013 V65.49 OTHER SPECIFIED COUNSELING 01/16/2013 V73.81 HPV SCREENING 01/16/2013 V76.10 BREAST CANCER SCREENING 01/16/2013 V76.51 SPECIAL SCREENING FOR MALIGNANT NEOPLASMS COLON 01/16/2013 V65.49 OTHER SPECIFIED COUNSELING 01/16/2013 V73.81 HPV SCREENING 01/16/2013 V76.10 BREAST CANCER SCREENING 01/16/2013 V76.51 SPECIAL SCREENING FOR MALIGNANT NEOPLASMS COLON 01/16/2013 V65.49 OTHER SPECIFIED COUNSELING 01/16/2013 V73.81 HPV SCREENING 01/16/2013 V76.10 BREAST CANCER SCREENING 01/16/2013 V76.51 SPECIAL SCREENING FOR MALIGNANT NEOPLASMS COLON 01/16/2013 FELIBERTO GARCIA APRN V65.49 OTHER SPECIFIED COUNSELING 01/16/2013 FELIBERTO GARCIA APRN V73.81 HPV SCREENING 01/16/2013 FELIBERTO GARCIA APRN V76.10 BREAST CANCER SCREENING 01/16/2013 FELIBERTO GARCIA APRN V76.51 SPECIAL SCREENING FOR MALIGNANT NEOPLASMS COLON 01/16/2013 MAGDALENA EUCEDA MD V65.49 OTHER SPECIFIED COUNSELING 01/16/2013 MAGDALENA EUCEDA MD V73.81 HPV SCREENING 01/16/2013 MAGDALENA EUCEDA MD V76.10 BREAST CANCER SCREENING 01/16/2013 MAGDALENA EUCEDA MD V76.51 SPECIAL SCREENING FOR MALIGNANT NEOPLASMS COLON 01/16/2013 MAGDALENA EUCEDA MD V65.49 OTHER SPECIFIED COUNSELING 01/16/2013 MAGDALENA EUCEDA MD V73.81 HPV SCREENING 01/16/2013 MAGDALENA EUCEDA MD V76.10 BREAST CANCER SCREENING 01/16/2013 MAGDALENA EUCEDA MD V76.51 SPECIAL SCREENING FOR MALIGNANT NEOPLASMS COLON 01/16/2013 ALLI HUNT MD V65.49 OTHER SPECIFIED COUNSELING 01/16/2013 ALLI HUNT MD V73.81 HPV SCREENING 01/16/2013 ALLI HUNT MD V76.10 BREAST CANCER SCREENING 01/16/2013 ALLI HUNT MD V76.51 SPECIAL SCREENING FOR MALIGNANT NEOPLASMS COLON 01/16/2013 CURRIE DO AMELIA K V65.49 OTHER SPECIFIED COUNSELING 01/16/2013 CURRIE DO AMELIA K V73.81 HPV SCREENING 01/16/2013 CURRIE DO AMELIA K V76.10 BREAST CANCER SCREENING 01/16/2013 CURRIE DO, AMELIA K V76.51 SPECIAL SCREENING FOR MALIGNANT NEOPLASMS COLON 01/16/2013 CURRIE DO, AMELIA K V65.49 OTHER SPECIFIED COUNSELING 01/16/2013 CURRIE DO, AMELIA K V73.81 HPV SCREENING 01/16/2013 CURRIE DO, AMELIA K V76.10 BREAST CANCER SCREENING 01/16/2013 CURRIE DO, AMELIA K V76.51 SPECIAL SCREENING FOR MALIGNANT NEOPLASMS COLON 01/16/2013 CURRIE DO, AMELIA K V65.49 OTHER SPECIFIED COUNSELING 01/16/2013 CURRIE DO, AMELIA K V73.81 HPV SCREENING 01/16/2013 CURRIE DO, AMELIA K V76.10 BREAST CANCER SCREENING 01/16/2013 CURRIE DO, AMELIA K V76.51 SPECIAL SCREENING FOR MALIGNANT NEOPLASMS COLON 01/16/2013 CURRIE DO, AMELIA K V65.49 OTHER SPECIFIED COUNSELING 01/16/2013 CURRIE DO, AMELIA K V73.81 HPV SCREENING 01/16/2013 CURRIE DO, AMELIA K V76.10 BREAST CANCER SCREENING 01/16/2013 CURRIE DO, AMELIA K V76.51 SPECIAL SCREENING FOR MALIGNANT NEOPLASMS COLON 01/16/2013 CURRIE DO, AMELIA K V65.49 OTHER SPECIFIED COUNSELING 01/16/2013 CURRIE DO, AMELIA K V73.81 HPV SCREENING 01/16/2013 CURRIE DO, AMELIA K V76.10 BREAST CANCER SCREENING 01/16/2013 CURRIE DO, AMELIA K V76.51 SPECIAL SCREENING FOR MALIGNANT NEOPLASMS COLON 01/16/2013 CHARITY PAPER MILL MANAGER, MARCI A V65.49 OTHER SPECIFIED COUNSELING 01/16/2013 CHARITY PAPER MILL MANAGER, MARCI A V73.81 HPV SCREENING 01/16/2013 CHARITY PAPER MILL MANAGER, MARCI A V76.10 BREAST CANCER SCREENING 01/16/2013 CHARITY PAPER MILL MANAGER, MARCI A V76.51 SPECIAL SCREENING FOR MALIGNANT NEOPLASMS COLON 01/16/2013 MADL PAPER MILL MANAGER, JHONATAN L V65.49 OTHER SPECIFIED COUNSELING 01/16/2013 MADL PAPER MILL MANAGER, JHONATAN L V73.81 HPV SCREENING 01/16/2013 MADL PAPER MILL MANAGER, JHONATAN L V76.10 BREAST CANCER SCREENING 01/16/2013 MADL PAPER MILL MANAGER, JHONATAN L V76.51 SPECIAL SCREENING FOR MALIGNANT NEOPLASMS COLON 01/16/2013 V65.49 OTHER SPECIFIED COUNSELING 01/16/2013 V73.81 HPV SCREENING 01/16/2013 V76.10 BREAST CANCER SCREENING 01/16/2013 V76.51 SPECIAL SCREENING FOR MALIGNANT NEOPLASMS COLON 01/16/2013 CURRIE DO, AMELIA K V65.49 OTHER SPECIFIED COUNSELING 01/16/2013 CURRIE DO, AMELIA K V73.81 HPV SCREENING 01/16/2013 CURRIE DO, AMELIA K V76.10 BREAST CANCER SCREENING 01/16/2013 CURRIE DO, AMELIA K V76.51 SPECIAL SCREENING FOR MALIGNANT NEOPLASMS COLON 01/16/2013 CURRIE DO, AMELIA K V65.49 OTHER SPECIFIED COUNSELING 01/16/2013 CURRIE DO, AMELIA K V73.81 HPV SCREENING 01/16/2013 CURRIE DO, AMELIA K V76.10 BREAST CANCER SCREENING 01/16/2013 CURRIE DO, AMELIA K V76.51 SPECIAL SCREENING FOR MALIGNANT NEOPLASMS COLON 01/16/2013 MADL PAPER MILL MANAGER, JHONATAN L V65.49 OTHER SPECIFIED COUNSELING 01/16/2013 MADL PAPER MILL MANAGER, JHONATAN L V73.81 HPV SCREENING 01/16/2013 MADL PAPER MILL MANAGER, JHONATAN L V76.10 BREAST CANCER SCREENING 01/16/2013 MADL PAPER MILL MANAGER, JHONATAN L V76.51 SPECIAL SCREENING FOR MALIGNANT NEOPLASMS COLON 01/16/2013 MADL PAPER MILL MANAGER, JHONATAN L V65.49 OTHER SPECIFIED COUNSELING 01/16/2013 MADL PAPER MILL MANAGER, JHONATAN L V73.81 HPV SCREENING 01/16/2013 MADL PAPER MILL MANAGER, JHONATAN L V76.10 BREAST CANCER SCREENING 01/16/2013 MADL PAPER MILL MANAGER, JHONATAN L V76.51 SPECIAL SCREENING FOR MALIGNANT NEOPLASMS COLON 01/16/2013 MADL PAPER MILL MANAGER, JHONATAN L V65.49 OTHER SPECIFIED COUNSELING 01/16/2013 MADL PAPER MILL MANAGER, JHONATAN L V73.81 HPV SCREENING 01/16/2013 MADL PAPER MILL MANAGER, JHONATAN L V76.10 BREAST CANCER SCREENING 01/16/2013 MADL PAPER MILL MANAGER, JHONATAN L V76.51 SPECIAL SCREENING FOR MALIGNANT NEOPLASMS COLON 01/16/2013 CURRIE DO, AMELIA K V65.49 OTHER SPECIFIED COUNSELING 01/16/2013 CURRIE DO, AMELIA K V73.81 HPV SCREENING 01/16/2013 CURRIE DO, AMELIA K V76.10 BREAST CANCER SCREENING 01/16/2013 CURRIE DO, AMELIA K V76.51 SPECIAL SCREENING FOR MALIGNANT NEOPLASMS COLON 01/16/2013 MADL PAPER MILL MANAGER, JHONATAN L V65.49 OTHER SPECIFIED COUNSELING 01/16/2013 MADL PAPER MILL MANAGER, JHONATAN L V73.81 HPV SCREENING 01/16/2013 MADL PAPER MILL MANAGER, JHONATAN L V76.10 BREAST CANCER SCREENING 01/16/2013 MADL PAPER MILL MANAGER, JHONATAN L V76.51 SPECIAL SCREENING FOR MALIGNANT NEOPLASMS COLON 01/16/2013 MADL PAPER MILL MANAGER, JHONATAN L V65.49 OTHER SPECIFIED COUNSELING 01/16/2013 MADL PAPER MILL MANAGER, JHONATAN L V73.81 HPV SCREENING 01/16/2013 MADL PAPER MILL MANAGER, JHONATAN L V76.10 BREAST CANCER SCREENING 01/16/2013 MADL PAPER MILL MANAGER, JHONATAN L V76.51 SPECIAL SCREENING FOR MALIGNANT NEOPLASMS COLON 01/16/2013 MADL PAPER MILL MANAGER, JHONATAN L V65.49 OTHER SPECIFIED COUNSELING 01/16/2013 MADL PAPER MILL MANAGER, JHONATAN L V73.81 HPV SCREENING 01/16/2013 MADL PAPER MILL MANAGER, JHONATAN L V76.10 BREAST CANCER SCREENING 01/16/2013 MADL PAPER MILL MANAGER, JHONATAN L V76.51 SPECIAL SCREENING FOR MALIGNANT NEOPLASMS COLON 01/16/2013 CURRIE DO, AMELIA K V65.49 OTHER SPECIFIED COUNSELING 01/16/2013 CURRIE DO, AMELIA K V73.81 HPV SCREENING 01/16/2013 CURRIE DO, AMELIA K V76.10 BREAST CANCER SCREENING 01/16/2013 CURRIE DO, AMELIA K V76.51 SPECIAL SCREENING FOR MALIGNANT NEOPLASMS COLON 01/16/2013 MADL PAPER MILL MANAGER, JHONATAN L V65.49 OTHER SPECIFIED COUNSELING 01/16/2013 MADL PAPER MILL MANAGER, JHONATAN L V73.81 HPV SCREENING 01/16/2013 MADL PAPER MILL MANAGER, JHONATAN L V76.10 BREAST CANCER SCREENING 01/16/2013 MADL PAPER MILL MANAGER, JHONATAN L V76.51 SPECIAL SCREENING FOR MALIGNANT NEOPLASMS COLON 01/16/2013 MADL PAPER MILL MANAGER, JHONATAN L V65.49 OTHER SPECIFIED COUNSELING 01/16/2013 MADL PAPER MILL MANAGER, JHONATAN L V73.81 HPV SCREENING 01/16/2013 MADL PAPER MILL MANAGER, JHONATAN L V76.10 BREAST CANCER SCREENING 01/16/2013 MADL PAPER MILL MANAGER, JHONATAN L V76.51 SPECIAL SCREENING FOR MALIGNANT NEOPLASMS COLON 01/16/2013 MAVERICK PAPER MILL MANAGER, ZACHARIAH R V65.49 OTHER SPECIFIED COUNSELING 01/16/2013 MAVERICK PAPER MILL MANAGER, ZACHARIAH R V73.81 HPV SCREENING 01/16/2013 MAVERICK PAPER MILL MANAGER, ZACHARIAH R V76.10 BREAST CANCER SCREENING 01/16/2013 MAVERICK PAPER MILL MANAGER, ZACHARIAH R V76.51 SPECIAL SCREENING FOR MALIGNANT NEOPLASMS COLON 01/16/2013 MADL PAPER MILL MANAGER, JHONATAN L V65.49 OTHER SPECIFIED COUNSELING 01/16/2013 MADL PAPER MILL MANAGER, JHONATAN L V73.81 HPV SCREENING 01/16/2013 MADL PAPER MILL MANAGER, JHONATAN L V76.10 BREAST CANCER SCREENING 01/16/2013 XIOMARAL PAPER MILL MANAGER, JHONATAN L V76.51 SPECIAL SCREENING FOR MALIGNANT NEOPLASMS COLON 01/16/2013 XIOMARAL PAPER MILL MANAGER, JHONATAN L V65.49 OTHER SPECIFIED COUNSELING 01/16/2013 MADL PAPER MILL MANAGER, JHONATAN L V73.81 HPV SCREENING 01/16/2013 XIOMARAL PAPER MILL MANAGER, JHONATAN L V76.10 BREAST CANCER SCREENING 01/16/2013 MADL PAPER MILL MANAGER, JHONATAN L V76.51 SPECIAL SCREENING FOR MALIGNANT NEOPLASMS COLON 01/16/2013 MADL PAPER MILL MANAGER, JHONATAN L V65.49 OTHER SPECIFIED COUNSELING 01/16/2013 MADL PAPER MILL MANAGER, JHONATAN L V73.81 HPV SCREENING 01/16/2013 MADL PAPER MILL MANAGER, JHONATAN L V76.10 BREAST CANCER SCREENING 01/16/2013 MADL PAPER MILL MANAGER, JHONATAN L V76.51 SPECIAL SCREENING FOR MALIGNANT NEOPLASMS COLON 01/16/2013 MADL PAPER MILL MANAGER, JHONATAN L V65.49 OTHER SPECIFIED COUNSELING 01/16/2013 MADL PAPER MILL MANAGER, JHONATAN L V73.81 HPV SCREENING 01/16/2013 MADL PAPER MILL MANAGER, JHONATAN L V76.10 BREAST CANCER SCREENING 01/16/2013 MADL PAPER MILL MANAGER, JHONATAN L V76.51 SPECIAL SCREENING FOR MALIGNANT NEOPLASMS COLON 01/16/2013 MADL PAPER MILL MANAGER, JHONATAN L V65.49 OTHER SPECIFIED COUNSELING 01/16/2013 MADL PAPER MILL MANAGER, JHONATAN L V73.81 HPV SCREENING 01/16/2013 MADL PAPER MILL MANAGER, JHONTAAN L V76.10 BREAST CANCER SCREENING 01/16/2013 MADL PAPER MILL MANAGER, JHONATAN L V76.51 SPECIAL SCREENING FOR MALIGNANT NEOPLASMS COLON 01/16/2013 MADL PAPER MILL MANAGER, JHONATAN L V65.49 OTHER SPECIFIED COUNSELING 01/16/2013 MADL PAPER MILL MANAGER, JHONATAN L V73.81 HPV SCREENING 01/16/2013 MADL PAPER MILL MANAGER, JHONATAN L V76.10 BREAST CANCER SCREENING 01/16/2013 MADL PAPER MILL MANAGER, JHONATAN L V76.51 SPECIAL SCREENING FOR MALIGNANT NEOPLASMS COLON 01/16/2013 CURRIE DO AMELIA K V65.49 OTHER SPECIFIED COUNSELING 01/16/2013 CURRIE DO AMELIA K V73.81 HPV SCREENING 01/16/2013 CURRIE DO AMELIA K V76.10 BREAST CANCER SCREENING 01/16/2013 CURRIE DO AMELIA K V76.51 SPECIAL SCREENING FOR MALIGNANT NEOPLASMS COLON 01/16/2013 MADL PAPER MILL MANAGER, JHONATAN L V65.49 OTHER SPECIFIED COUNSELING 01/16/2013 MADL PAPER MILL MANAGER, JHONATAN L V73.81 HPV SCREENING 01/16/2013 MADL PAPER MILL MANAGER, JHONATAN L V76.10 BREAST CANCER SCREENING 01/16/2013 MADL PAPER MILL MANAGER, JHONATAN L V76.51 SPECIAL SCREENING FOR MALIGNANT NEOPLASMS COLON 01/16/2013 BLANCHE PAPER MILL MANAGER, BHARAT S V65.49 OTHER SPECIFIED COUNSELING 01/16/2013 BLANCHE PAPER MILL MANAGER, BHARAT S V73.81 HPV SCREENING 01/16/2013 BLANCHE PAPER MILL MANAGER, BHARAT S V76.10 BREAST CANCER SCREENING 01/16/2013 BLANCHE PAPER MILL MANAGER, BHARAT S V76.51 SPECIAL SCREENING FOR MALIGNANT NEOPLASMS COLON 01/16/2013 V65.49 OTHER SPECIFIED COUNSELING 01/16/2013 V73.81 HPV SCREENING 01/16/2013 V76.10 BREAST CANCER SCREENING 01/16/2013 V76.51 SPECIAL SCREENING FOR MALIGNANT NEOPLASMS COLON 01/16/2013 ZACHARIAH TEMPLE APRN V65.49 OTHER SPECIFIED COUNSELING 01/16/2013 ZACHARIAH TEMPLE APRN R V73.81 HPV SCREENING 01/16/2013 ZACHARIAH TEMPLE APRN R V76.10 BREAST CANCER SCREENING 01/16/2013 ZACHARIAH TEMPLE APRN R V76.51 SPECIAL SCREENING FOR MALIGNANT NEOPLASMS COLON 01/16/2013 SUZY SIMMSS, SAE V65.49 OTHER SPECIFIED COUNSELING 01/16/2013 SUZY SIMMSSSAE V73.81 HPV SCREENING 01/16/2013 SUZY SIMMSSSAE V76.10 BREAST CANCER SCREENING 01/16/2013 ALMONTE MENDEZS, SAE V76.51 SPECIAL SCREENING FOR MALIGNANT NEOPLASMS COLON 05/08/2013 241.0 THYROID NODULE, SOLITARY 05/08/2013 241.0 THYROID NODULE, SOLITARY 05/08/2013 FELIBERTO GARCIA APRN A 241.0 THYROID NODULE, SOLITARY 05/08/2013 [place] CHAVIS, MAGDALENA 241.0 THYROID NODULE, SOLITARY 05/08/2013 OK CHAVIS, MAGDALENA 241.0 THYROID NODULE, SOLITARY 05/08/2013 MARILEE CHAVIS, ALLI M 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 05/08/2013 CURRIE DO, AMELIA K 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 05/08/2013 CURRIE DO, AMELIA K 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 05/08/2013 CURRIE DO, AMELIA K 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 05/08/2013 CURRIE DO, AMELIA K 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 05/08/2013 CURRIE DO, AMELIA K 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 05/08/2013 CHARITY FUCHS MARCI A 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 05/08/2013 [facility] PAPER MILL MANAGER, JHONATAN L 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 05/08/2013 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 05/08/2013 CURRIE DO, AMELIA K 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 05/08/2013 CURRIE DO, AMELIA K 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 05/08/2013 [facility] PAPER MILL MANAGER, JHONATAN L 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 05/08/2013 [facility] PAPER MILL MANAGER, JHONATAN L 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 05/08/2013 [facility] PAPER MILL MANAGER, JHONATAN L 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 05/08/2013 CURRIE DO, AMELIA K 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 05/08/2013 [facility] PAPER MILL MANAGER, JHONATAN L 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 05/08/2013 [facility] PAPER MILL MANAGER, JHONATAN L 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 05/08/2013 [facility] PAPER MILL MANAGER, JHONATAN L 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 05/08/2013 CURRIE DO, AMELIA K 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 05/08/2013 [facility] PAPER MILL MANAGER, JHONATAN L 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 05/08/2013 [facility] PAPER MILL MANAGER, JHONATAN L 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 05/08/2013 [facility] PAPER MILL MANAGER, ZACHARIAH R 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 05/08/2013 [facility] PAPER MILL MANAGER, JHONATAN L 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 05/08/2013 [facility] PAPER MILL MANAGER, JHONATAN L 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 05/08/2013 [facility] PAPER MILL MANAGER, JHONATAN L 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 05/08/2013 [facility] PAPER MILL MANAGER, JHONATAN L 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 05/08/2013 [facility] PAPER MILL MANAGER, JHONATAN L 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 05/08/2013 [facility] PAPER MILL MANAGER, JHONATAN L 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 05/08/2013 CURRIE DO, AMELIA K 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 05/08/2013 [facility] PAPER MILL MANAGER, JHONATAN L 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 05/08/2013 [facility] PAPER MILL MANAGER, BHARAT S 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 05/08/2013 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 05/08/2013 [facility] PAPER MILL MANAGER, ZACHARIAH R 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 05/08/2013 SAE ALMONTE DDS 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 10/02/2013 RADHA FUCHS, FELIBERTO Gonsales V04.81 FLU SHOT 10/02/2013 OK CHAVIS, MAGDALENA V04.81 FLU SHOT 10/02/2013 OK CHAVIS, MAGDALENA V04.81 FLU SHOT 10/02/2013 ALLI HUNT MD V04.81 FLU SHOT 10/02/2013 CURRIE DO, AMELIA K V04.81 FLU SHOT 10/02/2013 CURRIE DO, AMELIA K V04.81 FLU SHOT 10/02/2013 CURRIE DO, AMELIA K V04.81 FLU SHOT 10/02/2013 CURRIE DO, AMELIA K V04.81 FLU SHOT 10/02/2013 CURRIE DO, AMELIA K V04.81 FLU SHOT 10/02/2013 [facility] PAPER MILL MANAGER, MARCI A V04.81 FLU SHOT 10/02/2013 [facility] PAPER MILL MANAGER, JHONATAN L V04.81 FLU SHOT 10/02/2013 V04.81 FLU SHOT 10/02/2013 CURRIE DO, AMELIA K V04.81 FLU SHOT 10/02/2013 CURRIE DO, AMELIA K V04.81 FLU SHOT 10/02/2013 [facility] PAPER MILL MANAGER, JHONATAN L V04.81 FLU SHOT 10/02/2013 [facility] PAPER MILL MANAGER, JHONATAN L V04.81 FLU SHOT 10/02/2013 [facility] PAPER MILL MANAGER, JHONATAN L V04.81 FLU SHOT 10/02/2013 CURRIE DO, AMELIA K V04.81 FLU SHOT 10/02/2013 [facility] PAPER MILL MANAGER, JHONATAN L V04.81 FLU SHOT 10/02/2013 [facility] PAPER MILL MANAGER, JHONATAN L V04.81 FLU SHOT 10/02/2013 [facility] PAPER MILL MANAGER, JHONATAN L V04.81 FLU SHOT 10/02/2013 CURRIE DO, AMELIA K V04.81 FLU SHOT 10/02/2013 [facility] PAPER MILL MANAGER, JHONATAN L V04.81 FLU SHOT 10/02/2013 [facility] PAPER MILL MANAGER, JHONATAN L V04.81 FLU SHOT 10/02/2013 [facility] PAPER MILL MANAGER, ZACHARIAH R V04.81 FLU SHOT 10/02/2013 MADL PAPER MILL MANAGER, JHONATAN L V04.81 FLU SHOT 10/02/2013 MADL PAPER MILL MANAGER, JHONATAN L V04.81 FLU SHOT 10/02/2013 MADL PAPER MILL MANAGER, JHONATAN L V04.81 FLU SHOT 10/02/2013 MADL PAPER MILL MANAGER, JHONATAN L V04.81 FLU SHOT 10/02/2013 MADL PAPER MILL MANAGER, JHONATAN L V04.81 FLU SHOT 10/02/2013 MADL PAPER MILL MANAGER, JHONATAN L V04.81 FLU SHOT 10/02/2013 CURRIE DO, AMELIA K V04.81 FLU SHOT 10/02/2013 MADL PAPER MILL MANAGER, JHONATAN L V04.81 FLU SHOT 10/02/2013 BLANCHE PAPER MILL MANAGER, BHARAT S V04.81 FLU SHOT 10/02/2013 V04.81 FLU SHOT 10/02/2013 MAVERICK PAPER MILL MANAGER, ZACHARIAH R V04.81 FLU SHOT 10/02/2013 SAE ALMONTE DDS V04.81 FLU SHOT 12/06/2013 ALLI HUNT MD 496 CHRONIC OBSTRUCTIVE PULMONARY DISEASE 12/06/2013 ALLI HUNT MD 790.21 IMPAIRED FASTING GLUCOSE 12/06/2013 CURRIE DO, AMELIA K 496 CHRONIC OBSTRUCTIVE PULMONARY DISEASE 12/06/2013 CURRIE DO, AMELIA K 790.21 IMPAIRED FASTING GLUCOSE 12/06/2013 CURRIE DO, AMELIA K 496 CHRONIC OBSTRUCTIVE PULMONARY DISEASE 12/06/2013 CURRIE DO, AMELIA K 790.21 IMPAIRED FASTING GLUCOSE 12/06/2013 CURRIE DO, AMELIA K 496 CHRONIC OBSTRUCTIVE PULMONARY DISEASE 12/06/2013 CURRIE DO, AMELIA K 790.21 IMPAIRED FASTING GLUCOSE 12/06/2013 CURRIE DO, AMELIA K 496 CHRONIC OBSTRUCTIVE PULMONARY DISEASE 12/06/2013 CURRIE DO, AMELIA K 790.21 IMPAIRED FASTING GLUCOSE 12/06/2013 CURRIE DO, AMELIA K 496 CHRONIC OBSTRUCTIVE PULMONARY DISEASE 12/06/2013 CURRIE DO, AMELIA K 790.21 IMPAIRED FASTING GLUCOSE 12/06/2013 CHARITY PAPER MILL MANAGER, MARCI A 496 CHRONIC OBSTRUCTIVE PULMONARY DISEASE 12/06/2013 CHARITY PAPER MILL MANAGER, MARCI A 790.21 IMPAIRED FASTING GLUCOSE 12/06/2013 MADL PAPER MILL MANAGER, JHONATAN L 496 CHRONIC OBSTRUCTIVE PULMONARY DISEASE 12/06/2013 MADL PAPER MILL MANAGER, JHONATAN L 790.21 IMPAIRED FASTING GLUCOSE 12/06/2013 496 CHRONIC OBSTRUCTIVE PULMONARY DISEASE 12/06/2013 790.21 IMPAIRED FASTING GLUCOSE 12/06/2013 CURRIE DO, AMELIA K 496 CHRONIC OBSTRUCTIVE PULMONARY DISEASE 12/06/2013 CURRIE DO, AMELIA K 790.21 IMPAIRED FASTING GLUCOSE 12/06/2013 CURRIE DO, AMELIA K 496 CHRONIC OBSTRUCTIVE PULMONARY DISEASE 12/06/2013 CURRIE DO, AMELIA K 790.21 IMPAIRED FASTING GLUCOSE 12/06/2013 MADL PAPER MILL MANAGER, JHONATAN L 496 CHRONIC OBSTRUCTIVE PULMONARY DISEASE 12/06/2013 MADL PAPER MILL MANAGER, JHONATAN L 790.21 IMPAIRED FASTING GLUCOSE 12/06/2013 MADL PAPER MILL MANAGER, JHONATAN L 496 CHRONIC OBSTRUCTIVE PULMONARY DISEASE 12/06/2013 MADL PAPER MILL MANAGER, JHONATAN L 790.21 IMPAIRED FASTING GLUCOSE 12/06/2013 MADL PAPER MILL MANAGER, JHONATAN L 496 CHRONIC OBSTRUCTIVE PULMONARY DISEASE 12/06/2013 MADL PAPER MILL MANAGER, JHONATAN L 790.21 IMPAIRED FASTING GLUCOSE 12/06/2013 ROSEY SCHREIBER, AMELIA K 496 CHRONIC OBSTRUCTIVE PULMONARY DISEASE 12/06/2013 CURRIE DO, AMELIA K 790.21 IMPAIRED FASTING GLUCOSE 12/06/2013 MADL PAPER MILL MANAGER, JHONATAN L 496 CHRONIC OBSTRUCTIVE PULMONARY DISEASE 12/06/2013 MADL PAPER MILL MANAGER, JHONATAN L 790.21 IMPAIRED FASTING GLUCOSE 12/06/2013 MADL PAPER MILL MANAGER, JHONATAN L 496 CHRONIC OBSTRUCTIVE PULMONARY DISEASE 12/06/2013 MADL PAPER MILL MANAGER, JHONATAN L 790.21 IMPAIRED FASTING GLUCOSE 12/06/2013 MADL PAPER MILL MANAGER, JHONATAN L 496 CHRONIC OBSTRUCTIVE PULMONARY DISEASE 12/06/2013 MADL PAPER MILL MANAGER, JHONATAN L 790.21 IMPAIRED FASTING GLUCOSE 12/06/2013 ROSEY SCHREIBER AMELIA K 496 CHRONIC OBSTRUCTIVE PULMONARY DISEASE 12/06/2013 ROSEY SCHREIBER, AMELIA K 790.21 IMPAIRED FASTING GLUCOSE 12/06/2013 MADL PAPER MILL MANAGER, JHONATAN L 496 CHRONIC OBSTRUCTIVE PULMONARY DISEASE 12/06/2013 MADL PAPER MILL MANAGER, JHONATAN L 790.21 IMPAIRED FASTING GLUCOSE 12/06/2013 MADL PAPER MILL MANAGER, JHONATAN L 496 CHRONIC OBSTRUCTIVE PULMONARY DISEASE 12/06/2013 MADL PAPER MILL MANAGER, JHONATAN L 790.21 IMPAIRED FASTING GLUCOSE 12/06/2013 MAVERICK PAPER MILL MANAGER, ZACHARIAH R 496 CHRONIC OBSTRUCTIVE PULMONARY DISEASE 12/06/2013 MAVERICK PAPER MILL MANAGER, ZACHARIAH R 790.21 IMPAIRED FASTING GLUCOSE 12/06/2013 MADL PAPER MILL MANAGER, JHONATAN L 496 CHRONIC OBSTRUCTIVE PULMONARY DISEASE 12/06/2013 MADL PAPER MILL MANAGER, JHONATAN L 790.21 IMPAIRED FASTING GLUCOSE 12/06/2013 MADL PAPER MILL MANAGER, JHONATAN L 496 CHRONIC OBSTRUCTIVE PULMONARY DISEASE 12/06/2013 MADL PAPER MILL MANAGER, JHONATAN L 790.21 IMPAIRED FASTING GLUCOSE 12/06/2013 MADL PAPER MILL MANAGER, JHONATAN L 496 CHRONIC OBSTRUCTIVE PULMONARY DISEASE 12/06/2013 MADL PAPER MILL MANAGER, JHONATAN L 790.21 IMPAIRED FASTING GLUCOSE 12/06/2013 MADL PAPER MILL MANAGER, JHONATAN L 496 CHRONIC OBSTRUCTIVE PULMONARY DISEASE 12/06/2013 MADL PAPER MILL MANAGER, JHONATAN L 790.21 IMPAIRED FASTING GLUCOSE 12/06/2013 MADL PAPER MILL MANAGER, JHONATAN L 496 CHRONIC OBSTRUCTIVE PULMONARY DISEASE 12/06/2013 MADL PAPER MILL MANAGER, JHONATAN L 790.21 IMPAIRED FASTING GLUCOSE 12/06/2013 MADL PAPER MILL MANAGER, JHONATAN L 496 CHRONIC OBSTRUCTIVE PULMONARY DISEASE 12/06/2013 MAD PAPER MILL MANAGER, JHONATAN L 790.21 IMPAIRED FASTING GLUCOSE 12/06/2013 RICHA CURRIE DOA K 496 CHRONIC OBSTRUCTIVE PULMONARY DISEASE 12/06/2013 AMELIA CURRIE DO K 790.21 IMPAIRED FASTING GLUCOSE 12/06/2013 MADL PAPER MILL MANAGER, JHONATAN L 496 CHRONIC OBSTRUCTIVE PULMONARY DISEASE 12/06/2013 MADL PAPER MILL MANAGER, JHONATAN L 790.21 IMPAIRED FASTING GLUCOSE 12/06/2013 BLANCHE PAPER MILL MANAGER, BHARAT S 496 CHRONIC OBSTRUCTIVE PULMONARY DISEASE 12/06/2013 BLANCHE PAPER MILL MANAGER, BHARAT S 790.21 IMPAIRED FASTING GLUCOSE 12/06/2013 496 CHRONIC OBSTRUCTIVE PULMONARY DISEASE 12/06/2013 790.21 IMPAIRED FASTING GLUCOSE 12/06/2013 MAVERICK PAPER MILL MANAGER, ZACHARIAH R 496 CHRONIC OBSTRUCTIVE PULMONARY DISEASE 12/06/2013 MAVERICK GUTIERREZN, ZACHARIAH R 790.21 IMPAIRED FASTING GLUCOSE 12/06/2013 SAE ALMONTE DDS 496 CHRONIC OBSTRUCTIVE PULMONARY DISEASE 12/06/2013 SAE ALMONTE DDS 790.21 IMPAIRED FASTING GLUCOSE 01/22/2014 AMELIA CURRIE DO 719.41 PAIN IN JOINT INVOLVING SHOULDER REGION 01/22/2014 AMELIA CURRIE DO 719.41 PAIN IN JOINT INVOLVING SHOULDER REGION 01/22/2014 CURRIE DO AMELIA K 719.41 PAIN IN JOINT INVOLVING SHOULDER REGION 01/22/2014 CURRIE DO AMELIA K 719.41 PAIN IN JOINT INVOLVING SHOULDER REGION 01/22/2014 CURRIE DO AMELIA K 719.41 PAIN IN JOINT INVOLVING SHOULDER REGION 01/22/2014 MARCI NASH APRN 719.41 PAIN IN JOINT INVOLVING SHOULDER REGION 01/22/2014 MADL PAPER MILL MANAGER, JHONATAN L 719.41 PAIN IN JOINT INVOLVING SHOULDER REGION 01/22/2014 719.41 PAIN IN JOINT INVOLVING SHOULDER REGION 01/22/2014 CURRIE DO AMELIA K 719.41 PAIN IN JOINT INVOLVING SHOULDER REGION 01/22/2014 CURRIE DO AMELIA K 719.41 PAIN IN JOINT INVOLVING SHOULDER REGION 01/22/2014 MADL PAPER MILL MANAGER, JHONATAN L 719.41 PAIN IN JOINT INVOLVING SHOULDER REGION 01/22/2014 MADL PAPER MILL MANAGER, JHONATAN L 719.41 PAIN IN JOINT INVOLVING SHOULDER REGION 01/22/2014 MADL PAPER MILL MANAGER, JHONATAN L 719.41 PAIN IN JOINT INVOLVING SHOULDER REGION 01/22/2014 CURRIE DO AMELIA K 719.41 PAIN IN JOINT INVOLVING SHOULDER REGION 01/22/2014 MADL PAPER MILL MANAGER, JHONATAN L 719.41 PAIN IN JOINT INVOLVING SHOULDER REGION 01/22/2014 MADL PAPER MILL MANAGER, JHONATAN L 719.41 PAIN IN JOINT INVOLVING SHOULDER REGION 01/22/2014 MADL PAPER MILL MANAGER, JHONATAN L 719.41 PAIN IN JOINT INVOLVING SHOULDER REGION 01/22/2014 CURRIE DO AMELIA K 719.41 PAIN IN JOINT INVOLVING SHOULDER REGION 01/22/2014 MADL PAPER MILL MANAGER, JHONATAN L 719.41 PAIN IN JOINT INVOLVING SHOULDER REGION 01/22/2014 MADL PAPER MILL MANAGER, JHONATAN L 719.41 PAIN IN JOINT INVOLVING SHOULDER REGION 01/22/2014 ZACHARIAH TEMPLE APRN 719.41 PAIN IN JOINT INVOLVING SHOULDER REGION 01/22/2014 MADL PAPER MILL MANAGER, JHONATAN L 719.41 PAIN IN JOINT INVOLVING SHOULDER REGION 01/22/2014 MADL PAPER MILL MANAGER, JHONATAN L 719.41 PAIN IN JOINT INVOLVING SHOULDER REGION 01/22/2014 MADL PAPER MILL MANAGER, JHONATAN L 719.41 PAIN IN JOINT INVOLVING SHOULDER REGION 01/22/2014 JHONATAN EWING APRN L 719.41 PAIN IN JOINT INVOLVING SHOULDER REGION 01/22/2014 JHONATAN EWING APRN L 719.41 PAIN IN JOINT INVOLVING SHOULDER REGION 01/22/2014 MADL JHONATAN FUCHS L 719.41 PAIN IN JOINT INVOLVING SHOULDER REGION 01/22/2014 AMELIA CURRIE DO 719.41 PAIN IN JOINT INVOLVING SHOULDER REGION 01/22/2014 JHONATAN EWING APRN L 719.41 PAIN IN JOINT INVOLVING SHOULDER REGION 01/22/2014 BHARAT MANCIA APRN 719.41 PAIN IN JOINT INVOLVING SHOULDER REGION 01/22/2014 719.41 PAIN IN JOINT INVOLVING SHOULDER REGION 01/22/2014 ZACHARIAH TEMPLE APRN 719.41 PAIN IN JOINT INVOLVING SHOULDER REGION 01/22/2014 SAE ALMONTE DDS 719.41 PAIN IN JOINT INVOLVING SHOULDER REGION 01/22/2014 COREY DIAL APRN Ot 719.41 JOINT PAIN-SHLDER 01/22/2014 COREY DIAL APRN Ot 729.5 PAIN IN LIMB 02/06/2014 ROSEY DO AMELIA K 521.00 CARIES 02/06/2014 RICHA CURRIE DOA K V58.61 LONG-TERM (CURRENT) USE OF ANTICOAGULANTS 02/06/2014 ROSEY DORICHAA K 521.00 CARIES 02/06/2014 CURRIE DO AMELIA K V58.61 LONG-TERM (CURRENT) USE OF ANTICOAGULANTS 02/06/2014 RICHA CURRIE DOA K 521.00 CARIES 02/06/2014 CURRIE DO AMELIA K V58.61 LONG-TERM (CURRENT) USE OF ANTICOAGULANTS 02/06/2014 CURRIE DO, AMELIA K 521.00 CARIES 02/06/2014 CURRIE DO, AMELIA K V58.61 LONG-TERM (CURRENT) USE OF ANTICOAGULANTS 02/06/2014 MARCI NASH APRN 521.00 CARIES 02/06/2014 MARCI NASH APRN V58.61 LONG-TERM (CURRENT) USE OF ANTICOAGULANTS 02/06/2014 JHONATAN EWING APRN 521.00 CARIES 02/06/2014 MADL PAPER MILL MANAGER, JHONATAN L V58.61 LONG-TERM (CURRENT) USE OF ANTICOAGULANTS 02/06/2014 521.00 CARIES 02/06/2014 V58.61 LONG-TERM (CURRENT) USE OF ANTICOAGULANTS 02/06/2014 CURRIE DO, AMELIA K 521.00 CARIES 02/06/2014 CURRIE DO, AMELIA K V58.61 LONG-TERM (CURRENT) USE OF ANTICOAGULANTS 02/06/2014 CURRIE DO, AMELIA K 521.00 CARIES 02/06/2014 CURRIE DO, AMELIA K V58.61 LONG-TERM (CURRENT) USE OF ANTICOAGULANTS 02/06/2014 MADL PAPER MILL MANAGER, JHONATAN L 521.00 CARIES 02/06/2014 MADL PAPER MILL MANAGER, JHONATAN L V58.61 LONG-TERM (CURRENT) USE OF ANTICOAGULANTS 02/06/2014 MADL PAPER MILL MANAGER, JHONATAN L 521.00 CARIES 02/06/2014 MADL PAPER MILL MANAGER, JHONATAN L V58.61 LONG-TERM (CURRENT) USE OF ANTICOAGULANTS 02/06/2014 MADL PAPER MILL MANAGER, JHONATAN L 521.00 CARIES 02/06/2014 MADL PAPER MILL MANAGER, JHONATAN L V58.61 LONG-TERM (CURRENT) USE OF ANTICOAGULANTS 02/06/2014 CURRIE DO, AMELIA K 521.00 CARIES 02/06/2014 CURRIE DO AMELIA K V58.61 LONG-TERM (CURRENT) USE OF ANTICOAGULANTS 02/06/2014 MADL PAPER MILL MANAGER, JHONATAN L 521.00 CARIES 02/06/2014 MADL PAPER MILL MANAGER, JHONATAN L V58.61 LONG-TERM (CURRENT) USE OF ANTICOAGULANTS 02/06/2014 MADL PAPER MILL MANAGER, JHONATAN L 521.00 CARIES 02/06/2014 MADL PAPER MILL MANAGER, JHONATAN L V58.61 LONG-TERM (CURRENT) USE OF ANTICOAGULANTS 02/06/2014 MADL PAPER MILL MANAGER, JHONATAN L 521.00 CARIES 02/06/2014 MADL PAPER MILL MANAGER, JHONATAN L V58.61 LONG-TERM (CURRENT) USE OF ANTICOAGULANTS 02/06/2014 CURRIE DO, AMELIA K 521.00 CARIES 02/06/2014 CURRIE DO, AMELIA K V58.61 LONG-TERM (CURRENT) USE OF ANTICOAGULANTS 02/06/2014 MADL PAPER MILL MANAGER, JHONATAN L 521.00 CARIES 02/06/2014 MADL PAPER MILL MANAGER, JHONATAN L V58.61 LONG-TERM (CURRENT) USE OF ANTICOAGULANTS 02/06/2014 MADL PAPER MILL MANAGER, JHONATAN L 521.00 CARIES 02/06/2014 MADL PAPER MILL MANAGER, JHONATAN L V58.61 LONG-TERM (CURRENT) USE OF ANTICOAGULANTS 02/06/2014 MAVERICK PAPER MILL MANAGER, ZACHARIAH R 521.00 CARIES 02/06/2014 MAVERICK PAPER MILL MANAGER, ZACHARIAH R V58.61 LONG-TERM (CURRENT) USE OF ANTICOAGULANTS 02/06/2014 MADL PAPER MILL MANAGER, JHONATAN L 521.00 CARIES 02/06/2014 MADL PAPER MILL MANAGER, JHONATAN L V58.61 LONG-TERM (CURRENT) USE OF ANTICOAGULANTS 02/06/2014 MADL PAPER MILL MANAGER, JHONATAN L 521.00 CARIES 02/06/2014 MADL PAPER MILL MANAGER, JHONATAN L V58.61 LONG-TERM (CURRENT) USE OF ANTICOAGULANTS 02/06/2014 MADL PAPER MILL MANAGER, JHONATAN L 521.00 CARIES 02/06/2014 MADL PAPER MILL MANAGER, JHONATAN L V58.61 LONG-TERM (CURRENT) USE OF ANTICOAGULANTS 02/06/2014 MADL PAPER MILL MANAGER, JHONATAN L 521.00 CARIES 02/06/2014 MADL PAPER MILL MANAGER, JHONATAN L V58.61 LONG-TERM (CURRENT) USE OF ANTICOAGULANTS 02/06/2014 MADL PAPER MILL MANAGER, JHONATAN L 521.00 CARIES 02/06/2014 MADL PAPER MILL MANAGER, JHONATAN L V58.61 LONG-TERM (CURRENT) USE OF ANTICOAGULANTS 02/06/2014 MADL PAPER MILL MANAGER, JHONATAN L 521.00 CARIES 02/06/2014 MADL PAPER MILL MANAGER, JHONATAN L V58.61 LONG-TERM (CURRENT) USE OF ANTICOAGULANTS 02/06/2014 CURRIE DO, AMELIA K 521.00 CARIES 02/06/2014 CURRIE DO, AMELIA K V58.61 LONG-TERM (CURRENT) USE OF ANTICOAGULANTS 02/06/2014 MADL PAPER MILL MANAGER, JHONATAN L 521.00 CARIES 02/06/2014 MADL PAPER MILL MANAGER, JHONATAN L V58.61 LONG-TERM (CURRENT) USE OF ANTICOAGULANTS 02/06/2014 BHARAT MANCIA APRN S 521.00 CARIES 02/06/2014 BHARAT MANCIA APRN S V58.61 LONG-TERM (CURRENT) USE OF ANTICOAGULANTS 02/06/2014 521.00 CARIES 02/06/2014 V58.61 LONG-TERM (CURRENT) USE OF ANTICOAGULANTS 02/06/2014 MAVERICK PAPER MILL MANAGER, ZACHARIAH R 521.00 CARIES 02/06/2014 MAVERICK GUTIERREZN ZACHARIAH R V58.61 LONG-TERM (CURRENT) USE OF ANTICOAGULANTS 02/06/2014 ALMONTE DDS, SAE 521.00 CARIES 02/06/2014 ALMONTE DDS, SAE V58.61 LONG-TERM (CURRENT) USE OF ANTICOAGULANTS 02/26/2014 CURRIE DO, AMELIA K 599.0 URINARY TRACT INFECTION 02/26/2014 CURRIE DO, AMELIA K 599.70 HEMATURIA UNSPECIFIED 02/26/2014 CURRIE DO, AMELIA K 786.2 COUGH 02/26/2014 CURRIE DO, AMELIA K V72.31 BOILER FITTER EXAM, ROUTINE 02/26/2014 CURRIE DO, AMELIA K V76.2 CERVICAL CANCER SCREENING (PAP SMEAR) 02/26/2014 CURRIE DO, AMELIA K 599.0 URINARY TRACT INFECTION 02/26/2014 CURRIE DO, AMELIA K 599.70 HEMATURIA UNSPECIFIED 02/26/2014 CURRIE DO, AMELIA K 786.2 COUGH 02/26/2014 CURRIE DO, AMELIA K V72.31 BOILER FITTER EXAM, ROUTINE 02/26/2014 CURRIE DO, AMELIA K V76.2 CERVICAL CANCER SCREENING (PAP SMEAR) 02/26/2014 CHARITY PAPER MILL MANAGER, MARCI A 599.0 URINARY TRACT INFECTION 02/26/2014 CHARITY PAPER MILL MANAGER, MARCI A 599.70 HEMATURIA UNSPECIFIED 02/26/2014 CHARITY PAPER MILL MANAGER, MARCI A 786.2 COUGH 02/26/2014 CHARITY PAPER MILL MANAGER, MARCI A V72.31 BOILER FITTER EXAM, ROUTINE 02/26/2014 CHARITY PAPER MILL MANAGER, MARCI A V76.2 CERVICAL CANCER SCREENING (PAP SMEAR) 02/26/2014 MADL PAPER MILL MANAGER, JHONATAN L 599.0 URINARY TRACT INFECTION 02/26/2014 MADL PAPER MILL MANAGER, JHONATAN L 599.70 HEMATURIA UNSPECIFIED 02/26/2014 MADL PAPER MILL MANAGER, JHONATAN L 786.2 COUGH 02/26/2014 MADL PAPER MILL MANAGER, JHONATAN L V72.31 BOILER FITTER EXAM, ROUTINE 02/26/2014 MADL PAPER MILL MANAGER, JHONATAN L V76.2 CERVICAL CANCER SCREENING (PAP SMEAR) 02/26/2014 599.0 URINARY TRACT INFECTION 02/26/2014 599.70 HEMATURIA UNSPECIFIED 02/26/2014 786.2 COUGH 02/26/2014 V72.31 BOILER FITTER EXAM, ROUTINE 02/26/2014 V76.2 CERVICAL CANCER SCREENING (PAP SMEAR) 02/26/2014 CURRIE DO, AMELIA K 599.0 URINARY TRACT INFECTION 02/26/2014 CURRIE DO, AMELIA K 599.70 HEMATURIA UNSPECIFIED 02/26/2014 CURRIE DO, AMELIA K 786.2 COUGH 02/26/2014 CURRIE DO, AMELIA K V72.31 BOILER FITTER EXAM, ROUTINE 02/26/2014 CURRIE DO, AMELIA K V76.2 CERVICAL CANCER SCREENING (PAP SMEAR) 02/26/2014 CURRIE DO, AMELIA K 599.0 URINARY TRACT INFECTION 02/26/2014 CURRIE DO, AMELIA K 599.70 HEMATURIA UNSPECIFIED 02/26/2014 CURRIE DO, AMELIA K 786.2 COUGH 02/26/2014 CURRIE DO, AMELIA K V72.31 BOILER FITTER EXAM, ROUTINE 02/26/2014 CURRIE DO, AMELIA K V76.2 CERVICAL CANCER SCREENING (PAP SMEAR) 02/26/2014 MADL PAPER MILL MANAGER, JHONATAN L 599.0 URINARY TRACT INFECTION 02/26/2014 MADL PAPER MILL MANAGER, JHONATAN L 599.70 HEMATURIA UNSPECIFIED 02/26/2014 MADL PAPER MILL MANAGER, JHONATAN L 786.2 COUGH 02/26/2014 MADL PAPER MILL MANAGER, JHONATAN L V72.31 BOILER FITTER EXAM, ROUTINE 02/26/2014 MADL PAPER MILL MANAGER, JHONATAN L V76.2 CERVICAL CANCER SCREENING (PAP SMEAR) 02/26/2014 MADL PAPER MILL MANAGER, JHONATAN L 599.0 URINARY TRACT INFECTION 02/26/2014 MADL PAPER MILL MANAGER, JHONATAN L 599.70 HEMATURIA UNSPECIFIED 02/26/2014 MADL PAPER MILL MANAGER, JHONATAN L 786.2 COUGH 02/26/2014 MADL PAPER MILL MANAGER, JHONATAN L V72.31 BOILER FITTER EXAM, ROUTINE 02/26/2014 MADL PAPER MILL MANAGER, JHONATAN L V76.2 CERVICAL CANCER SCREENING (PAP SMEAR) 02/26/2014 MADL PAPER MILL MANAGER, JHONATAN L 599.0 URINARY TRACT INFECTION 02/26/2014 MADL PAPER MILL MANAGER, JHONATAN L 599.70 HEMATURIA UNSPECIFIED 02/26/2014 MADL PAPER MILL MANAGER, JHONATAN L 786.2 COUGH 02/26/2014 MADL PAPER MILL MANAGER, JHONATAN L V72.31 BOILER FITTER EXAM, ROUTINE 02/26/2014 MADL PAPER MILL MANAGER, JHONATAN L V76.2 CERVICAL CANCER SCREENING (PAP SMEAR) 02/26/2014 CURRIE DO, AMELIA K 599.0 URINARY TRACT INFECTION 02/26/2014 CURRIE DO, AMELIA K 599.70 HEMATURIA UNSPECIFIED 02/26/2014 CURRIE DO, AMELIA K 786.2 COUGH 02/26/2014 CURRIE DO, AMELIA K V72.31 BOILER FITTER EXAM, ROUTINE 02/26/2014 CURRIE DO, AMELIA K V76.2 CERVICAL CANCER SCREENING (PAP SMEAR) 02/26/2014 MADL PAPER MILL MANAGER, JHONATAN L 599.0 URINARY TRACT INFECTION 02/26/2014 MADL PAPER MILL MANAGER, JHONATAN L 599.70 HEMATURIA UNSPECIFIED 02/26/2014 MADL PAPER MILL MANAGER, JHONATAN L 786.2 COUGH 02/26/2014 MADL PAPER MILL MANAGER, JHONATAN L V72.31 BOILER FITTER EXAM, ROUTINE 02/26/2014 MADL PAPER MILL MANAGER, JHONATAN L V76.2 CERVICAL CANCER SCREENING (PAP SMEAR) 02/26/2014 MADL PAPER MILL MANAGER, JHONATAN L 599.0 URINARY TRACT INFECTION 02/26/2014 MADL PAPER MILL MANAGER, JHONATAN L 599.70 HEMATURIA UNSPECIFIED 02/26/2014 MADL PAPER MILL MANAGER, JHONATAN L 786.2 COUGH 02/26/2014 MADL PAPER MILL MANAGER, JHONATAN L V72.31 BOILER FITTER EXAM, ROUTINE 02/26/2014 MADL PAPER MILL MANAGER, JHONATAN L V76.2 CERVICAL CANCER SCREENING (PAP SMEAR) 02/26/2014 MADL PAPER MILL MANAGER, JHONATAN L 599.0 URINARY TRACT INFECTION 02/26/2014 MADL PAPER MILL MANAGER, JHONATAN L 599.70 HEMATURIA UNSPECIFIED 02/26/2014 MADL PAPER MILL MANAGER, JHONATAN L 786.2 COUGH 02/26/2014 MADL PAPER MILL MANAGER, JHONATAN L V72.31 BOILER FITTER EXAM, ROUTINE 02/26/2014 MADL PAPER MILL MANAGER, JHONATAN L V76.2 CERVICAL CANCER SCREENING (PAP SMEAR) 02/26/2014 CURRIE DO, AMELIA K 599.0 URINARY TRACT INFECTION 02/26/2014 CURRIE DO, AMELIA K 599.70 HEMATURIA UNSPECIFIED 02/26/2014 CURRIE DO, AMELIA K 786.2 COUGH 02/26/2014 CURRIE DO, AMELIA K V72.31 BOILER FITTER EXAM, ROUTINE 02/26/2014 CURRIE DO, AMELIA K V76.2 CERVICAL CANCER SCREENING (PAP SMEAR) 02/26/2014 MADL PAPER MILL MANAGER, JHONATAN L 599.0 URINARY TRACT INFECTION 02/26/2014 MADL PAPER MILL MANAGER, JHONATAN L 599.70 HEMATURIA UNSPECIFIED 02/26/2014 MADL PAPER MILL MANAGER, JHONATAN L 786.2 COUGH 02/26/2014 MADL PAPER MILL MANAGER, JHONATAN L V72.31 BOILER FITTER EXAM, ROUTINE 02/26/2014 MADL PAPER MILL MANAGER, JHONATAN L V76.2 CERVICAL CANCER SCREENING (PAP SMEAR) 02/26/2014 MADL PAPER MILL MANAGER, JHONATAN L 599.0 URINARY TRACT INFECTION 02/26/2014 MADL PAPER MILL MANAGER, JHONATAN L 599.70 HEMATURIA UNSPECIFIED 02/26/2014 MADL PAPER MILL MANAGER, JHONATAN L 786.2 COUGH 02/26/2014 MADL PAPER MILL MANAGER, JHONATAN L V72.31 BOILER FITTER EXAM, ROUTINE 02/26/2014 MADL PAPER MILL MANAGER, JHONATAN L V76.2 CERVICAL CANCER SCREENING (PAP SMEAR) 02/26/2014 MAVERICK PAPER MILL MANAGER, ZACHARIAH R 599.0 URINARY TRACT INFECTION 02/26/2014 MAVERICK PAPER MILL MANAGER, ZACHARIAH R 599.70 HEMATURIA UNSPECIFIED 02/26/2014 MAVERICK PAPER MILL MANAGER, ZACHARIAH R 786.2 COUGH 02/26/2014 MAVERICK PAPER MILL MANAGER, ZACHARIAH R V72.31 BOILER FITTER EXAM, ROUTINE 02/26/2014 MAVERICK PAPER MILL MANAGER, ZACHARIAH R V76.2 CERVICAL CANCER SCREENING (PAP SMEAR) 02/26/2014 MADL PAPER MILL MANAGER, JHONATAN L 599.0 URINARY TRACT INFECTION 02/26/2014 MADL PAPER MILL MANAGER, JHONATAN L 599.70 HEMATURIA UNSPECIFIED 02/26/2014 MADL PAPER MILL MANAGER, JHONATAN L 786.2 COUGH 02/26/2014 MADL PAPER MILL MANAGER, JHONATAN L V72.31 BOILER FITTER EXAM, ROUTINE 02/26/2014 MADL PAPER MILL MANAGER, JHONATAN L V76.2 CERVICAL CANCER SCREENING (PAP SMEAR) 02/26/2014 MADL PAPER MILL MANAGER, JHONATAN L 599.0 URINARY TRACT INFECTION 02/26/2014 MADL PAPER MILL MANAGER, JHONATAN L 599.70 HEMATURIA UNSPECIFIED 02/26/2014 MADL PAPER MILL MANAGER, JHONATAN L 786.2 COUGH 02/26/2014 MADL PAPER MILL MANAGER, JHONATAN L V72.31 BOILER FITTER EXAM, ROUTINE 02/26/2014 MADL PAPER MILL MANAGER, JHONATAN L V76.2 CERVICAL CANCER SCREENING (PAP SMEAR) 02/26/2014 MADL PAPER MILL MANAGER, JHONATAN L 599.0 URINARY TRACT INFECTION 02/26/2014 MADL PAPER MILL MANAGER, JHONATAN L 599.70 HEMATURIA UNSPECIFIED 02/26/2014 MADL PAPER MILL MANAGER, JHONATAN L 786.2 COUGH 02/26/2014 MADL PAPER MILL MANAGER, JHONATAN L V72.31 BOILER FITTER EXAM, ROUTINE 02/26/2014 MADL PAPER MILL MANAGER, JHONATAN L V76.2 CERVICAL CANCER SCREENING (PAP SMEAR) 02/26/2014 MADL PAPER MILL MANAGER, JHONATAN L 599.0 URINARY TRACT INFECTION 02/26/2014 MADL PAPER MILL MANAGER, JHONATAN L 599.70 HEMATURIA UNSPECIFIED 02/26/2014 MADL PAPER MILL MANAGER, JHONATAN L 786.2 COUGH 02/26/2014 MADL PAPER MILL MANAGER, JHONATAN L V72.31 BOILER FITTER EXAM, ROUTINE 02/26/2014 MADL PAPER MILL MANAGER, JHONATAN L V76.2 CERVICAL CANCER SCREENING (PAP SMEAR) 02/26/2014 MADL PAPER MILL MANAGER, JHONATAN L 599.0 URINARY TRACT INFECTION 02/26/2014 MADL PAPER MILL MANAGER, JHONATAN L 599.70 HEMATURIA UNSPECIFIED 02/26/2014 MADL PAPER MILL MANAGER, JHONATAN L 786.2 COUGH 02/26/2014 MADL PAPER MILL MANAGER, JHONATAN L V72.31 BOILER FITTER EXAM, ROUTINE 02/26/2014 MADL PAPER MILL MANAGER, JHONATAN L V76.2 CERVICAL CANCER SCREENING (PAP SMEAR) 02/26/2014 MADL PAPER MILL MANAGER, JHONATAN L 599.0 URINARY TRACT INFECTION 02/26/2014 MADL PAPER MILL MANAGER, JHONATAN L 599.70 HEMATURIA UNSPECIFIED 02/26/2014 MADL PAPER MILL MANAGER, JHONATAN L 786.2 COUGH 02/26/2014 MADL PAPER MILL MANAGER, JHONATAN L V72.31 BOILER FITTER EXAM, ROUTINE 02/26/2014 MADL PAPER MILL MANAGER, JHONATAN L V76.2 CERVICAL CANCER SCREENING (PAP SMEAR) 02/26/2014 CURRIE DO, AMELIA K 599.0 URINARY TRACT INFECTION 02/26/2014 CURRIE DO, AMELIA K 599.70 HEMATURIA UNSPECIFIED 02/26/2014 CURRIE DO, AMELIA K 786.2 COUGH 02/26/2014 CURRIE DO, AMELIA K V72.31 BOILER FITTER EXAM, ROUTINE 02/26/2014 CURRIE DO, AMELIA K V76.2 CERVICAL CANCER SCREENING (PAP SMEAR) 02/26/2014 MADL PAPER MILL MANAGER, JHONATAN L 599.0 URINARY TRACT INFECTION 02/26/2014 MADL PAPER MILL MANAGER, JHONATAN L 599.70 HEMATURIA UNSPECIFIED 02/26/2014 MADL PAPER MILL MANAGER, JHONATAN L 786.2 COUGH 02/26/2014 MADL PAPER MILL MANAGER, JHONATAN L V72.31 BOILER FITTER EXAM, ROUTINE 02/26/2014 MADL PAPER MILL MANAGER, JHONATAN L V76.2 CERVICAL CANCER SCREENING (PAP SMEAR) 02/26/2014 BLANCHE PAPER MILL MANAGER, BHARAT S 599.0 URINARY TRACT INFECTION 02/26/2014 BLANCHE PAPER MILL MANAGER, BHARAT S 599.70 HEMATURIA UNSPECIFIED 02/26/2014 BLANCHE PAPER MILL MANAGER, BHARAT S 786.2 COUGH 02/26/2014 BLANCHE PAPER MILL MANAGER, BHARAT S V72.31 BOILER FITTER EXAM, ROUTINE 02/26/2014 BLANCHE PAPER MILL MANAGER, BHARAT S V76.2 CERVICAL CANCER SCREENING (PAP SMEAR) 02/26/2014 599.0 URINARY TRACT INFECTION 02/26/2014 599.70 HEMATURIA UNSPECIFIED 02/26/2014 786.2 COUGH 02/26/2014 V72.31 BOILER FITTER EXAM, ROUTINE 02/26/2014 V76.2 CERVICAL CANCER SCREENING (PAP SMEAR) 02/26/2014 MAVERICK PAPER MILL MANAGER, ZACHARIAH R 599.0 URINARY TRACT INFECTION 02/26/2014 MAVERICK PAPER MILL MANAGER, ZACHARIAH R 599.70 HEMATURIA UNSPECIFIED 02/26/2014 MAVERICK PAPER MILL MANAGER, ZACHARIAH R 786.2 COUGH 02/26/2014 MAVERICK PAPER MILL MANAGER, ZACHARIAH R V72.31 BOILER FITTER EXAM, ROUTINE 02/26/2014 MAVERICK PAPER MILL MANAGER, ZACHARIAH R V76.2 CERVICAL CANCER SCREENING (PAP SMEAR) 02/26/2014 ALMONTE DDS, SAE 599.0 URINARY TRACT INFECTION 02/26/2014 ALMONTE DDS, SAE 599.70 HEMATURIA UNSPECIFIED 02/26/2014 ALMONTE DDS, SAE 786.2 COUGH 02/26/2014 ALMONTE DDS, SAE V72.31 BOILER FITTER EXAM, ROUTINE 02/26/2014 ALMONTE DDS, SAE V76.2 CERVICAL CANCER SCREENING (PAP SMEAR) 05/14/2014 OG FERNANDO DO Ot 599.0 URIN TRACT INFECTION NOS 05/14/2014 OG FERNANDO DO Ot 786.50 CHEST PAIN NOS 05/14/2014 OG FERNANDO DO Ot 786.52 PAINFUL RESPIRATION 05/16/2014 AMELIA CURRIE DO 478.19 OTHER DISEASES OF NASAL CAVITY AND SINUSES 05/16/2014 WILL EWING APRNNYA L 478.19 OTHER DISEASES OF NASAL CAVITY AND SINUSES 05/16/2014 KAYLIN FUCHS JHONATAN L 478.19 OTHER DISEASES OF NASAL CAVITY AND SINUSES 05/16/2014 XIOMARAL SHILA JHONATAN L 478.19 OTHER DISEASES OF NASAL CAVITY AND SINUSES 05/16/2014 AMELIA CURRIE DO 478.19 OTHER DISEASES OF NASAL CAVITY AND SINUSES 05/16/2014 MADL PAPER MILL MANAGER, JHONATAN L 478.19 OTHER DISEASES OF NASAL CAVITY AND SINUSES 05/16/2014 MADL PAPER MILL MANAGER, JHONATAN L 478.19 OTHER DISEASES OF NASAL CAVITY AND SINUSES 05/16/2014 KAYLIN FUCHS JHONATAN L 478.19 OTHER DISEASES OF NASAL CAVITY AND SINUSES 05/16/2014 AMELIA CURRIE DO K 478.19 OTHER DISEASES OF NASAL CAVITY AND SINUSES 05/16/2014 MADL PAPER MILL MANAGER, JHONATAN L 478.19 OTHER DISEASES OF NASAL CAVITY AND SINUSES 05/16/2014 MADL PAPER MILL MANAGER, JHONATAN L 478.19 OTHER DISEASES OF NASAL CAVITY AND SINUSES 05/16/2014 JOSSELINE TEMPLE APRNINA R 478.19 OTHER DISEASES OF NASAL CAVITY AND SINUSES 05/16/2014 MADL PAPER MILL MANAGER, JHONATAN L 478.19 OTHER DISEASES OF NASAL CAVITY AND SINUSES 05/16/2014 MADL PAPER MILL MANAGER, JHONATAN L 478.19 OTHER DISEASES OF NASAL CAVITY AND SINUSES 05/16/2014 MADL PAPER MILL MANAGER, JHONATAN L 478.19 OTHER DISEASES OF NASAL CAVITY AND SINUSES 05/16/2014 MADL PAPER MILL MANAGER, JHONATAN L 478.19 OTHER DISEASES OF NASAL CAVITY AND SINUSES 05/16/2014 MADL PAPER MILL MANAGER, JHONATAN L 478.19 OTHER DISEASES OF NASAL CAVITY AND SINUSES 05/16/2014 MADL PAPER MILL MANAGER, JHONATAN L 478.19 OTHER DISEASES OF NASAL CAVITY AND SINUSES 05/16/2014 AMELIA CURRIE DO K 478.19 OTHER DISEASES OF NASAL CAVITY AND SINUSES 05/16/2014 MADL PAPER MILL MANAGER, JHONATAN L 478.19 OTHER DISEASES OF NASAL CAVITY AND SINUSES 05/16/2014 BLANCHE FUCHS BHARAT S 478.19 OTHER DISEASES OF NASAL CAVITY AND SINUSES 05/16/2014 478.19 OTHER DISEASES OF NASAL CAVITY AND SINUSES 05/16/2014 ZACHARIAH TEMPLE APRN R 478.19 OTHER DISEASES OF NASAL CAVITY AND SINUSES 05/16/2014 SAE ALMONTE DDS 478.19 OTHER DISEASES OF NASAL CAVITY AND SINUSES 07/22/2014 MADL PAPER MILL MANAGER, JHONATAN L V04.81 FLU SHOT 07/22/2014 JOSSELINE TEMPLE APRNINA R V04.81 FLU SHOT 07/22/2014 MADL PAPER MILL MANAGER, JHONATAN L V04.81 FLU SHOT 07/22/2014 MADL PAPER MILL MANAGER, JHONATAN L V04.81 FLU SHOT 07/22/2014 MADL PAPER MILL MANAGER, JHONATAN L V04.81 FLU SHOT 07/22/2014 MADL PAPER MILL MANAGER, JHONATAN L V04.81 FLU SHOT 07/22/2014 MADL PAPER MILL MANAGER, JHONATAN L V04.81 FLU SHOT 07/22/2014 MADL PAPER MILL MANAGER, JHONATAN L V04.81 FLU SHOT 07/22/2014 AMELIA CURRIE DO V04.81 FLU SHOT 07/22/2014 MADL PAPER MILL MANAGER, JHONATAN L V04.81 FLU SHOT 07/22/2014 BHARAT MANCIA APRN S V04.81 FLU SHOT 07/22/2014 V04.81 FLU SHOT 07/22/2014 ZACHARIAH TEMPLE APRN R V04.81 FLU SHOT 07/22/2014 SUZY GRANADOS, SAE V04.81 FLU SHOT 12/02/2014 BHARAT MANCIA APRN S 719.40 PAIN IN JOINT SITE UNSPECIFIED 12/02/2014 719.40 PAIN IN JOINT SITE UNSPECIFIED 12/02/2014 ZACHARIAH TEMPLE APRN 719.40 PAIN IN JOINT SITE UNSPECIFIED 12/02/2014 SUZY GRANADOS, SAE 719.40 PAIN IN JOINT SITE UNSPECIFIED 12/20/2014 BHARAT MANCIA APRN S 465.9 UPPER RESPIRATORY INFECTION 12/20/2014 465.9 UPPER RESPIRATORY INFECTION 12/20/2014 ZACHARIAH TEMPLE APRN R 465.9 UPPER RESPIRATORY INFECTION 12/20/2014 ALMONTE DDS, SAE 465.9 UPPER RESPIRATORY INFECTION 01/09/2015 BHARAT MANCIA APRN S 788.31 URGE INCONTINENCE 01/09/2015 788.31 URGE INCONTINENCE 01/09/2015 ZACHARIAH TEMPLE APRN R 788.31 URGE INCONTINENCE 01/09/2015 ALMONTE DDS, SAE 788.31 URGE INCONTINENCE 01/28/2015 ZACHARIAH TEMPLE APRN R 786.2 COUGH 01/28/2015 SUZY GRANADOS, SAE 786.2 COUGH 02/18/2015 Ot 611.72 02/18/2015 Ot V16.3 02/18/2015 Ot V76.12 02/18/2015 Ot 553.3 02/18/2015 Ot 786.05 02/18/2015 Ot 786.2 02/18/2015 Ot 793.11 02/18/2015 Ot 396.3 02/18/2015 Ot 397.0 02/18/2015 Ot 414.00 02/18/2015 Ot 429.3 02/18/2015 Ot 786.09 02/18/2015 Ot V43.3 02/18/2015 Ot V76.12 02/18/2015 MARILEE CHAVIS, ALLI Shirley Ot 793.11 02/18/2015 ALLI HUNT MD Ot 240.9 02/18/2015 KATLIN NASHIDI A PAPER MILL MANAGER Ot V65.49 02/18/2015 CHARITY MARCI A PAPER MILL MANAGER Ot V72.31 02/18/2015 CHARITY, MARCI A PAPER MILL MANAGER Ot V73.81 02/18/2015 CHARITY MARCI A PAPER MILL MANAGER Ot V76.12 02/18/2015 CHARITY MARCI A PAPER MILL MANAGER Ot V76.2 02/18/2015 KATLIN NASHIDI A PAPER MILL MANAGER Ot V76.51 03/28/2015 ELANA CHAVIS, LATERLL Davies Ot 401.9 03/28/2015 ELANA CHAVIS, LATRELL Davies Ot 414.9 03/28/2015 ELANA CHAVIS, LATRELL Davies Ot 416.8 03/28/2015 ELANA CHAVIS, LATRELL Davies Ot 424.1 03/28/2015 ELANA CHAVIS, LATRELL Davies Ot 429.3 03/28/2015 ELANA CHAVIS, LATRELL Davies Ot 785.1 03/31/2015 ELANA CHAVIS, LATRELL Davies Ot 401.9 03/31/2015 ELANA CHAVIS, LATRELL Davies Ot 414.9 03/31/2015 ELANA CHAVIS, LATRELL Davies Ot 416.8 03/31/2015 ELANA CHAVIS, LATRELL Davies Ot 424.1 03/31/2015 ELANA CHAVIS, LATRELL Davies Ot 429.3 03/31/2015 ELANA CHAVIS, LATRELL Davise Ot 785.1 06/25/2015 Ot 611.72 06/25/2015 Ot V16.3 06/25/2015 Ot V76.12 06/25/2015 Ot 553.3 06/25/2015 Ot 786.05 06/25/2015 Ot 786.2 06/25/2015 Ot 793.11 06/25/2015 Ot 396.3 06/25/2015 Ot 397.0 06/25/2015 Ot 414.00 06/25/2015 Ot 429.3 06/25/2015 Ot 786.09 06/25/2015 Ot V43.3 06/25/2015 Ot V76.12 06/25/2015 ALLI HUNT MD Ot 793.11 06/25/2015 ALLI HUNT MD Ot 240.9 06/25/2015 CHARITY MARCI A PAPER MILL MANAGER Ot V65.49 06/25/2015 MARCI NASH PAPER MILL MANAGER Ot V72.31 06/25/2015 CHARITY MARCI A PAPER MILL MANAGER Ot V73.81 06/25/2015 CHARITY MARCI A PAPER MILL MANAGER Ot V76.12 06/25/2015 MARCI NASH PAPER MILL MANAGER Ot V76.2 06/25/2015 MARCI NASH PAPER MILL MANAGER Ot V76.51 06/25/2015 ELANA CHAVIS, LATRELL Davies Ot 401.9 06/25/2015 ELANA CHAVIS, LATRELL Davies Ot 414.9 06/25/2015 ELANA CHAVIS, LATRELL Davies Ot 416.8 06/25/2015 ELANA CHAVIS, LATRELL Davies Ot 424.1 06/25/2015 ELANA CHAVIS, LATRELL Davies Ot 429.3 06/25/2015 ELANA CHAVIS, LATRELL Davies Ot 785.1 07/16/2015 ELANA CHAVIS, LATRELL Davies Ot 401.9 07/16/2015 ELANA CHAVIS, LATRELL Davies Ot 414.00 07/16/2015 ELANA CHAVIS, LATRELL Davies Ot 424.0 07/16/2015 ELANA CHAVIS, LATRELL Davies Ot 496 07/23/2015 ELANA CHAVIS, LATRELL Davies Ot 401.9 07/23/2015 ELANA CHAVIS, LATRELL Davies Ot 414.00 07/23/2015 ELANA CHAVIS, LATRELL Davies Ot 424.0 07/23/2015 ELANA CHAVIS, LATRELL Davies Ot 496 09/18/2015 Ot V76.12 09/18/2015 Ot 553.3 09/18/2015 Ot 786.05 09/18/2015 Ot 786.2 09/18/2015 Ot 793.11 09/18/2015 Ot 396.3 09/18/2015 Ot 397.0 09/18/2015 Ot 414.00 09/18/2015 Ot 429.3 09/18/2015 Ot 786.09 09/18/2015 Ot V43.3 09/18/2015 Ot V76.12 09/18/2015 ALLI HUNT MD Ot 793.11 09/18/2015 ALLI HUNT MD Ot 240.9 09/18/2015 MARCI NASH PAPER MILL MANAGER Ot V65.49 09/18/2015 CHARITYKATLINMARCI Ilda PAPER MILL MANAGER Ot V72.31 09/18/2015 CHARITYKATLINMARCI Ilda PAPER MILL MANAGER Ot V73.81 09/18/2015 CHARITYKATLINMARCI Ilda PAPER MILL MANAGER Ot V76.12 09/18/2015 CHARITYKATLINMARCI Ilda PAPER MILL MANAGER Ot V76.2 09/18/2015 CHARITY MARCI Ilda PAPER MILL MANAGER Ot V76.51 09/18/2015 ELANA CHAVIS, LATRELL Davies Ot 401.9 09/18/2015 ELANA CHAVIS, LATRELL Davies Ot 414.9 09/18/2015 ELANA CHAVIS, LATRELL Davies Ot 416.8 09/18/2015 ELANA CHAVIS, LATRELL J Ot 424.1 09/18/2015 ELANA CHAVIS, LATRELL J Ot 429.3 09/18/2015 ELANA CHAVIS, LATRELL Davies Ot 785.1 09/18/2015 ELANA CHAVIS, LATRELL Davies Ot 401.9 09/18/2015 ELANA CHAVIS, LATRELL Davies Ot 414.00 09/18/2015 ELANA CHAVIS, LATRELL Davies Ot 424.0 09/18/2015 ELANA CHAVIS, LATRELL Davies Ot 496 09/18/2015 COREY DIAL PAPER MILL MANAGER Ot S50.12XA CONTUSION OF LEFT FOREARM, INITIAL ENCOU 09/18/2015 COREY DIAL PAPER MILL MANAGER Ot W22.8XXA STRIKING AGAINST OR STRUCK BY OTHER OBJE 09/18/2015 COREY DIAL PAPER MILL MANAGER Ot Y99.8 OTHER EXTERNAL CAUSE STATUS 04/29/2016 Ot V76.12 OTH SCREEN MAMMO-MALIGN NEOPLASM OF [place] 04/29/2016 Ot 553.3 DIAPHRAGMATIC HERNIA 04/29/2016 Ot 786.05 SHORTNESS OF BREATH 04/29/2016 Ot 786.2 COUGH 04/29/2016 Ot 793.11 SOLITARY PULMONARY NODULE 04/29/2016 Ot 396.3 MITRAL/AORTIC MARGARITO INSUFF 04/29/2016 Ot 397.0 TRICUSPID VALVE DISEASE 04/29/2016 Ot 414.00 CORON ATHEROSCLER NOS TYPE VESSEL, NATIV 04/29/2016 Ot 429.3 CARDIOMEGALY 04/29/2016 Ot 786.09 RESPIRATORY ABNORM NEC 04/29/2016 Ot V43.3 HEART VALVE REPLAC NEC 04/29/2016 Ot V76.12 OTH SCREEN MAMMO-MALIGN NEOPLASM OF [place] 04/29/2016 ALLI HUNT MD Ot 793.11 SOLITARY PULMONARY NODULE 04/29/2016 ALLI HUNT MD Ot 240.9 GOITER NOS 04/29/2016 MARCI NASH PAPER MILL MANAGER Ot V65.49 OTHER SPECIFIED COUNSELING 04/29/2016 MARCI NASH PAPER MILL MANAGER Ot V72.31 ROUTINE GYNECOLOGICAL EXAMINATION 04/29/2016 MARCI NASH PAPER MILL MANAGER Ot V73.81 SPECIAL SCREENING EXAMINATION, HUMAN PAP 04/29/2016 MARCI NASH PAPER MILL MANAGER Ot V76.12 OTH SCREEN MAMMO-MALIGN NEOPLASM OF [place] 04/29/2016 MARCI NASH PAPER MILL MANAGER Ot V76.2 SCREEN MAL NEOP-CERVIX 04/29/2016 MARCI NASH PAPER MILL MANAGER Ot V76.51 SCREEN MAL NEOP-COLON 04/29/2016 ELANA CHAVIS, LATRELL Davies Ot 401.9 HYPERTENSION NOS 04/29/2016 LATRELL HAWKISN MD Ot 414.9 CHR ISCHEMIC HRT DIS NOS 04/29/2016 LATRELL HAWKINS MD Ot 416.8 CHR PULMON HEART DIS NEC 04/29/2016 LATRELL HAWKINS MD Ot 424.1 AORTIC VALVE DISORDER 04/29/2016 LATRELL HAWKINS MD Ot 429.3 CARDIOMEGALY 04/29/2016 LATRELL HAWKINS MD Ot 785.1 PALPITATIONS 04/29/2016 LATRELL HAWKINS MD Ot 401.9 HYPERTENSION NOS 04/29/2016 LATRELL HAWKINS MD Ot 414.00 CORON ATHEROSCLER NOS TYPE VESSEL, NATIV 04/29/2016 LATRELL HAWKINS MD Ot 424.0 MITRAL VALVE DISORDER 04/29/2016 LATRELL HAWKINS MD Ot 496 CHR AIRWAY OBSTRUCT NEC 04/29/2016 BHARAT MANCIA [facility] Ot Z12.31 ENCNTR SCREEN MAMMOGRAM FOR MALIGNANT NE 04/30/2016 BHARAT MANCIA [employer]LECTRICIAN SUBSTATION Ot Z12.31 ENCNTR SCREEN MAMMOGRAM FOR MALIGNANT NE 05/05/2016 BHARAT MANCIA ELECTRICIAN SUBSTATION Ot Z12.31 ENCNTR SCREEN MAMMOGRAM FOR MALIGNANT NE 06/04/2016 BHARAT MANCIA ELECTRICIAN SUBSTATION Ot Z12.31 ENCNTR SCREEN MAMMOGRAM FOR MALIGNANT NE 06/29/2016 BHRAAT MANCIA ELECTRICIAN SUBSTATION Ot Z12.31 ENCNTR SCREEN MAMMOGRAM FOR MALIGNANT NE 11/30/2016 Ot 553.3 DIAPHRAGMATIC HERNIA 11/30/2016 Ot 786.05 SHORTNESS OF BREATH 11/30/2016 Ot 786.2 COUGH 11/30/2016 Ot 793.11 SOLITARY PULMONARY NODULE 11/30/2016 Ot 396.3 MITRAL/AORTIC MARGARITO INSUFF 11/30/2016 Ot 397.0 TRICUSPID VALVE DISEASE 11/30/2016 Ot 414.00 CORON ATHEROSCLER NOS TYPE VESSEL, NATIV 11/30/2016 Ot 429.3 CARDIOMEGALY 11/30/2016 Ot 786.09 RESPIRATORY ABNORM NEC 11/30/2016 Ot V43.3 HEART VALVE REPLAC NEC 11/30/2016 Ot V76.12 OTH SCREEN MAMMO-MALIGN NEOPLASM OF [place] 11/30/2016 ALLI HUNT MD Ot 793.11 SOLITARY PULMONARY NODULE 11/30/2016 ALLI HUNT MD Ot 240.9 GOITER NOS 11/30/2016 MARCI NASH PAPER MILL MANAGER Ot V65.49 OTHER SPECIFIED COUNSELING 11/30/2016 MARCI NASH APRN Ot V72.31 ROUTINE GYNECOLOGICAL EXAMINATION 11/30/2016 MARCI NASH PAPER MILL MANAGER Ot V73.81 SPECIAL SCREENING EXAMINATION, HUMAN PAP 11/30/2016 MARCI NASH PAPER MILL MANAGER Ot V76.12 OTH SCREEN MAMMO-MALIGN NEOPLASM OF [place] 11/30/2016 MARCI NASH PAPER MILL MANAGER Ot V76.2 SCREEN MAL NEOP-CERVIX 11/30/2016 MARCI NASH PAPER MILL MANAGER Ot V76.51 SCREEN MAL NEOP-COLON 11/30/2016 ELANA CHAVIS, LATRELL Davies Ot 401.9 HYPERTENSION NOS 11/30/2016 LATRELL HAWKINS MD Ot 414.9 CHR ISCHEMIC HRT DIS NOS 11/30/2016 LATRELL HAWKINS MD Ot 416.8 CHR PULMON HEART DIS NEC 11/30/2016 LATRELL HAWKINS MD Ot 424.1 AORTIC VALVE DISORDER 11/30/2016 LATRELL HAWKINS MD Ot 429.3 CARDIOMEGALY 11/30/2016 LATRELL HAWKINS MD Ot 785.1 PALPITATIONS 11/30/2016 LATRELL HAWKINS MD Ot 401.9 HYPERTENSION NOS 11/30/2016 LATRELL HAWKINS MD Ot 414.00 CORON ATHEROSCLER NOS TYPE VESSEL, NATIV 11/30/2016 LATRELL HAWKINS MD Ot 424.0 MITRAL VALVE DISORDER 11/30/2016 LATRELL HAWKINS MD Ot 496 CHR AIRWAY OBSTRUCT NEC 11/30/2016 BHARAT MANCIA Ot Z12.31 ENCNTR SCREEN MAMMOGRAM FOR MALIGNANT NE 11/30/2016 DENNYS LEWIS MD, Ot I25.10 ATHSCL HEART DISEASE OF [place] CORONARY 11/30/2016 DENNYS LEWIS MD, Ot J06.9 ACUTE UPPER RESPIRATORY INFECTION, UNSPE 11/30/2016 DENNYS LEWIS MD, Ot J44.9 CHRONIC OBSTRUCTIVE PULMONARY DISEASE , U 11/30/2016 DENNYS LEWIS MD, Ot R05 COUGH 11/30/2016 DENNYS LEWIS MD, Ot Z79.01 USP (CURRENT) USE OF ANTICOAGULANT 11/30/2016 DENNYS LEWIS MD, Ot Z79.82 HEALTH SANITARIAN (CURRENT) USE OF ASPIRIN 11/30/2016 DENNYS LEWIS MD, Ot Z95.1 PRESENCE OF AORTOCORONARY BYPASS GRAFT 11/30/2016 DENNYS LEWIS MD, Ot Z95.2 PRESENCE OF PROSTHETIC HEART VALVE 11/30/2016 Ot 553.3 DIAPHRAGMATIC HERNIA 11/30/2016 Ot 786.05 SHORTNESS OF BREATH 11/30/2016 Ot 786.2 COUGH 11/30/2016 Ot 793.11 SOLITARY PULMONARY NODULE 11/30/2016 Ot 396.3 MITRAL/AORTIC MARGARITO INSUFF 11/30/2016 Ot 397.0 TRICUSPID VALVE DISEASE 11/30/2016 Ot 414.00 CORON ATHEROSCLER NOS TYPE VESSEL, NATIV 11/30/2016 Ot 429.3 CARDIOMEGALY 11/30/2016 Ot 786.09 RESPIRATORY ABNORM NEC 11/30/2016 Ot V43.3 HEART VALVE REPLAC NEC 11/30/2016 Ot V76.12 OTH SCREEN MAMMO-MALIGN NEOPLASM OF [place] 11/30/2016 MARILEE CHAVIS, ALLI Shirley Ot 793.11 SOLITARY PULMONARY NODULE 11/30/2016 MARILEE CHAVIS, ALLI Shirley Ot 240.9 GOITER NOS 11/30/2016 MARCI NASH PAPER MILL MANAGER Ot V65.49 OTHER SPECIFIED COUNSELING 11/30/2016 MARCI NASH PAPER MILL MANAGER Ot V72.31 ROUTINE GYNECOLOGICAL EXAMINATION 11/30/2016 MARCI NASH PAPER MILL MANAGER Ot V73.81 SPECIAL SCREENING EXAMINATION, HUMAN PAP 11/30/2016 MARCI NASH PAPER MILL MANAGER Ot V76.12 OTH SCREEN MAMMO-MALIGN NEOPLASM OF [place] 11/30/2016 MARCI NASH PAPER MILL MANAGER Ot V76.2 SCREEN MAL NEOP-CERVIX 11/30/2016 MARCI NASH PAPER MILL MANAGER Ot V76.51 SCREEN MAL NEOP-COLON 11/30/2016 LATRELL HAWKINS MD Ot 401.9 HYPERTENSION NOS 11/30/2016 LATRELL HAWKINS MD Ot 414.9 CHR ISCHEMIC HRT DIS NOS 11/30/2016 LATRELL HAWKINS MD Ot 416.8 CHR PULMON HEART DIS NEC 11/30/2016 LATRELL HAWKINS MD Ot 424.1 AORTIC VALVE DISORDER 11/30/2016 LATRELL HAWKINS MD Ot 429.3 CARDIOMEGALY 11/30/2016 LATRELL HAWKINS MD Ot 785.1 PALPITATIONS 11/30/2016 LATRELL HAWKINS MD Ot 401.9 HYPERTENSION NOS 11/30/2016 LATRELL HAWKINS MD Ot 414.00 CORON ATHEROSCLER NOS TYPE VESSEL, NATIV 11/30/2016 LATRELL HAWKINS MD Ot 424.0 MITRAL VALVE DISORDER 11/30/2016 LATRELL HAWKINS MD Ot 496 CHR AIRWAY OBSTRUCT NEC 11/30/2016 BHARAT MANCIA Ot Z12.31 ENCNTR SCREEN MAMMOGRAM FOR MALIGNANT NE 12/02/2016 DENNYS LEWIS MD Ot I25.10 ATHSCL HEART DISEASE OF [place] CORONARY 12/02/2016 DENNYS LEWIS MD Ot J06.9 ACUTE UPPER RESPIRATORY INFECTION, UNSPE 12/02/2016 DENNYS LEWIS MD Ot J44.9 CHRONIC OBSTRUCTIVE PULMONARY DISEASE , U 12/02/2016 DENNYS LEWIS MD Ot R05 COUGH 12/02/2016 DENNYS LEWIS MD Ot Z79.01 USP (CURRENT) USE OF ANTICOAGULANT 12/02/2016 DENNYS LEWIS MD Ot Z79.82 USP (CURRENT) USE OF ASPIRIN 12/02/2016 DENNYS LEWIS MD Ot Z95.1 PRESENCE OF AORTOCORONARY BYPASS GRAFT 12/02/2016 DENNYS LEWIS MD Ot Z95.2 PRESENCE OF PROSTHETIC HEART VALVE 12/02/2016 DENNYS LEWIS MD Ot I25.10 ATHSCL HEART DISEASE OF [place] CORONARY 12/02/2016 DENNYS LEWIS MD Ot J06.9 ACUTE UPPER RESPIRATORY INFECTION, UNSPE 12/02/2016 DENNYS LEWIS MD Ot J44.9 CHRONIC OBSTRUCTIVE PULMONARY DISEASE , U 12/02/2016 DENNYS LEWIS MD Ot R05 COUGH 12/02/2016 DENNYS LEWIS MD Ot Z79.01 HEALTH SANITARIAN (CURRENT) USE OF ANTICOAGULANT 12/02/2016 DENNYS LEWIS MD Ot Z79.82 USP (CURRENT) USE OF ASPIRIN 12/02/2016 DENNYS LEWIS MD Ot Z95.1 PRESENCE OF AORTOCORONARY BYPASS GRAFT 12/02/2016 DENNYS LEWIS MD Ot Z95.2 PRESENCE OF PROSTHETIC HEART VALVE 01/16/2017 MIHAI ROBERTS MD Ot I10 ESSENTIAL (PRIMARY) HYPERTENSION 01/16/2017 MIHAI ROBERTS MD Ot J44.9 CHRONIC OBSTRUCTIVE PULMONARY DISEASE, U 01/16/2017 MIHAI ROBERTS MD Ot K02.9 DENTAL CARIES, UNSPECIFIED 01/16/2017 MIHAI ROBERTS MD Ot 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.9 DISORDER OF TEETH AND SUPPORTING STRUCTU 01/16/2017 MIHAI ROBERTS MD Ot Z79.01 HEALTH SANITARIAN (CURRENT) USE OF ANTICOAGULANT 01/16/2017 MIHAI ROBERTS MD Ot Z79.82 USP (CURRENT) USE OF ASPIRIN 01/16/2017 MIHAI ROBERTS MD Ot Z79.899 OTHER HEALTH SANITARIAN (CURRENT) DRUG THERAPY 01/16/2017 MIHAI ROBERTS MD Ot Z95.1 PRESENCE OF AORTOCORONARY BYPASS GRAFT 01/16/2017 MIHAI ROBERTS MD Ot Z95.2 PRESENCE OF PROSTHETIC HEART VALVE 01/17/2017 MIHAI ROBERTS MD Ot I10 ESSENTIAL (PRIMARY) HYPERTENSION 01/17/2017 MIHAI ROBERTS MD Ot J44.9 CHRONIC OBSTRUCTIVE PULMONARY DISEASE, U 01/17/2017 MIHAI ROBERTS MD Ot K02.9 DENTAL CARIES, UNSPECIFIED 01/17/2017 MIHAI ROBERTS MD Ot 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.9 DISORDER OF TEETH AND SUPPORTING STRUCTU 01/17/2017 MIHAI ROBERTS MD Ot Z79.01 HEALTH SANITARIAN (CURRENT) USE OF ANTICOAGULANT 01/17/2017 MIHAI ROBERTS MD Ot Z79.82 HEALTH SANITARIAN (CURRENT) USE OF ASPIRIN 01/17/2017 MIHAI ROBERTS MD Ot Z79.899 OTHER HEALTH SANITARIAN (CURRENT) DRUG THERAPY 01/17/2017 MIHAI ROBERTS MD Ot Z95.1 PRESENCE OF AORTOCORONARY BYPASS GRAFT 01/17/2017 MIHAI ROBERTS MD Ot Z95.2 PRESENCE OF PROSTHETIC HEART VALVE Procedures Code Description [place] [address] INR (IN HOUSE) 55868 INR (IN HOUSE) Cardiolog Latrell Hawkins 10/25/2012 07676 XRAY CHEST 2 VIEW 12/01/[address] CHEST W/O DYE 12/01/2012 94500 INR (IN HOUSE) 97936 XRAY THORACIC SPINE 2 VIEWS 01/10/2013 82239 XRAY LUMBAR SPINE 2 OR 3 VIEWS 01/10/2013 58906 ROUTINE VENIPUNCTURE 01/11/2013 74199 INR (IN HOUSE) 46300 A1C (IN-HOUSE) 76582 CMP 01/11/2013 10322 LIPID PANEL 01/11 35107 CBC 01/11/2013 [id number] GFR CALC (RESULT ONLY) 01/11/2013 83960 MAMMOGRAM, SCREENING 01/18/2013 J1040 DEPO MEDROL 80 MG INJ 02/21/2013 38289 THERAPUTIC INJ SQ/IM 02/21/2013 87568 UA W/ CULTURE IF INDICATED 02/21/2013 75062 INR (IN HOUSE) 39294 ROUTINE VENIPUNCTURE 04/17/2013 12341 CMP 04/17/2013 [id number] GFR CALC (RESULT ONLY) 04/17/[address] CHEST W/O DYE 04/20/2013 23040 UA W/ CULTURE IF INDICATED 06/01/2013 70366 CULTURE URINE 39837 ROUTINE VENIPUNCTURE 10/12/2013 75204 OXIMETRY 2012 23603 CMP 10/12/2013 [id number] GFR CALC (RESULT ONLY) 10/12/2013 29261 ROUTINE VENIPUNCTURE 02/06/2014 24120 INR (IN HOUSE) 82343 CMP 02/06/2014 88314 LIPID PANEL 02/06 47710 CPK 02/06/2014 25527 INR (IN HOUSE) 50198 ROUTINE VENIPUNCTURE 02/26/2014 99111 INR (IN HOUSE) 50129 UA LONG DIP 02/26 42082 INR (IN HOUSE) 58672 XRAY CHEST 2 VIEW 02/26/2014 76577 CBC 02/26/2014 75280 CULTURE URINE 54429 MAMMOGRAM, SCREENING 02/27/2014 39806 PAP SMEAR 2013 Q0091 PAP SMEAR OBTAIN SMEAR 02/27/2014 46259 INR (IN HOUSE) 56983 INR (IN HOUSE) 53834 INR (IN HOUSE) 20813 INR (IN HOUSE) 80902 CAPILLARY BLOOD DRAW 05/28/2014 19331 INR (IN HOUSE) 45990 INR (IN HOUSE) 65482 INR (IN HOUSE) 51107 INR (IN HOUSE) 55025 INR (IN HOUSE) 54237 INR (IN HOUSE) 17749 INR (IN HOUSE) 38015 INR (IN HOUSE) 21216 INR (IN HOUSE) 24035 INR (IN HOUSE) 58855 INR (IN HOUSE) 33199 INR (IN HOUSE) Results Test Result Range Influenza virus A and B antigen detection - 11/30/16 11:34 FLU RESULT NEGATIVE FOR INFLUENZA A AND B ANTIGENS BY [facility] Complete blood count (CBC) with automated white blood cell (WBC) differential - 11/30/16 12:11 Blood leukocytes automated count (number/volume) 8.9 10*3/ uL 4.3-11.0 Blood erythrocytes automated count (number/volume) 4.58 10*6 /uL 4.35-5.85 Venous blood hemoglobin measurement (mass/volume) 12.9 g/dL 11.5-16.0 Blood hematocrit (volume fraction) 39 % 35-52 Automated erythrocyte mean corpuscular volume 86 [foz_us] 80-99 Automated erythrocyte mean corpuscular hemoglobin (mass per erythrocyte) 28 pg 25-34 Automated erythrocyte mean corpuscular hemoglobin concentration measurement ( mass/volume) 33 g/dL 32-36 Automated erythrocyte distribution width ratio 14.8 % 10.0-14.5 Automated blood platelet count (count/volume) 266 10*3/uL 130-400 Automated blood platelet mean volume measurement 10.5 [foz_ us] 7.4-10.4 Automated blood neutrophils/100 leukocytes 62 % 42-75 Automated blood lymphocytes/100 leukocytes 18 % 12-44 Blood monocytes/100 leukocytes 13 % 0-12 Automated blood eosinophils/100 leukocytes 6 % 0-10 Automated blood basophils/100 leukocytes 1 % 0-10 Blood neutrophils automated count (number/volume) 5.6 10*3 1.8-7.8 Blood lymphocytes automated count (number/volume) 1.6 10*3 1.0-4.0 Blood monocytes automated count (number/volume) 1.2 10*3 0.0-1.0 Automated eosinophil count 0.5 10*3/uL 0.0-0.3 Automated blood basophil count (count/volume) 0.1 10*3/uL 0.0-0.1 PT panel in platelet poor plasma by coagulation assay - 11/30/16 12:11 Prothrombin time (PT) in platelet poor plasma by coagulation assay 15.0 s 12.2-14.7 INR in platelet poor plasma or blood by coagulation assay 1.2 0.8-1.4 Comprehensive metabolic panel - 11/30/16 12:11 Serum or plasma sodium measurement (moles/volume) 139 mmol/ L 135-145 Serum or plasma potassium measurement (moles/volume) 3.3 mmol/L 3.6-5.0 Serum or plasma chloride measurement (moles/volume) 107 mmol /L 98-107 Carbon dioxide 21 mmol/L 21-32 Serum or plasma anion gap determination (moles/volume) 11 mmol/L 5-14 Serum or plasma urea nitrogen measurement (mass/volume) 18 mg/dL 7-18 Serum or plasma creatinine measurement (mass/volume) 0.87 mg /dL 0.60-1.30 Serum or plasma urea nitrogen/creatinine mass ratio 21 NRG Serum or plasma creatinine measurement with calculation of estimated glomerular filtration rate > NRG Serum or plasma glucose measurement (mass/volume) 115 mg/dL 70-105 Serum or plasma calcium measurement (mass/volume) 8.8 mg/dL 8.5-10.1 Serum or plasma total bilirubin measurement (mass/volume) 0.5 mg/dL 0.1-1.0 Serum or plasma alkaline phosphatase measurement (enzymatic activity/volume) 95 U/L 40-136 Serum or plasma aspartate aminotransferase measurement (enzymatic activity/ volume) 33 U/L 5-34 Serum or plasma alanine aminotransferase measurement (enzymatic activity/volume ) 28 U/L 0-55 Serum or plasma protein measurement (mass/volume) 7.1 g/dL 6.4-8.2 Serum or plasma albumin measurement (mass/volume) 3.9 g/dL 3.2-4.5 Encounters ACCT No. Visit Date/Time Discharge Status Pt. Type Provider Facility Loc./Unit Complaint [id number] 02/05/2015 08:29:00 02/05/2015 23: 59:59 CLS Outpatient SAE ALMONTE DDS [id number] 01/28/2015 09:08:00 01/28/2015 23: 59:59 CLS Outpatient ZACHARIAH TEMPLE APRN [id number] 01/27/2015 05:12:00 01/27/2015 23: 59:59 CLS Outpatient [id number] 01/06/2015 09:52:00 01/06/2015 23: 59:59 CLS Outpatient BHARAT MANCIA APRN [id number] 11/01/2014 10:30:00 11/01/2014 23: 59:59 CLS Outpatient [facility] [employer], JHONATAN L [id number] 10/07/2014 09:23:00 10/07/2014 23: 59:59 CLS Outpatient [facility] [employer], JHONATAN L [id number] 09/30/2014 09:44:00 09/30/2014 23: 59:59 CLS Outpatient [facility], JHONATAN L [id number] 09/30/2014 09:44:00 09/30/2014 23: 59:59 CLS Outpatient AMELIA CURRIE DO [id number] 09/20/2014 09:34:00 09/20/2014 23: 59:59 CLS Outpatient [facility]GER, JHONATAN L [id number] 09/02/2014 09:53:00 09/02/2014 23: 59:59 CLS Outpatient [employer], JHONATAN L [id number] 08/30/2014 09:56:00 08/30/2014 23: 59:59 CLS Outpatient [employer], JHONATAN L [id number] 08/30/2014 09:56:00 08/30/2014 23: 59:59 CLS Outpatient [facility]GER, JHONATAN L [id number] 07/31/2014 09:55:00 07/31/2014 23: 59:59 CLS Outpatient [facility] [employer] MANAGER ZACHARIAH R [id number] 07/22/2014 11:05:00 07/22/2014 23: 59:59 CLS Outpatient [employer], JHONATAN L [id number] 07/09/2014 09:33:00 07/09/2014 23: 59:59 CLS Outpatient [employer], JHONATAN L [id number] 07/01/2014 12:29:00 07/01/2014 23: 59:59 CLS Outpatient [employer], JHONATAN L [id number] 06/28/2014 10:34:00 06/28/2014 23: 59:59 CLS Outpatient [employer], JHONATAN L [id number] 06/21/2014 09:52:00 06/21/2014 23: 59:59 CLS Outpatient [employer], JHONATAN L [id number] 06/21/2014 09:52:00 06/21/2014 23: 59:59 CLS Outpatient CURRIE DOAMELIA [id number] 05/28/2014 09:34:00 05/28/2014 23: 59:59 CLS Outpatient [facility] [employer] MANAGERJHONATAN [id number] 05/24/2014 11:46:00 05/24/2014 23: 59:59 CLS Outpatient [facility] [employer] MANAGERJHONATAN [id number] 05/22/2014 13:24:00 05/22/2014 23: 59:59 CLS Outpatient CURRIE DO, AMELIA K [id number] 05/22/2014 13:24:00 05/22/2014 23: 59:59 CLS Outpatient [facility] [employer] MANAGERJ[employer]ONATAN [id number] 05/20/2014 08:38:00 05/20/2014 23: 59:59 CLS Outpatient CURRIE DO AMELIA Monk [id number] 05/02/2014 13:08:00 05/02/2014 23: 59:59 CLS Outpatient CURRIE DORICHAIlda Mokn [id number] 04/09/2014 06:41:00 04/09/2014 23: 59:59 CLS Outpatient [id number] 03/22/2014 10:07:00 03/22/2014 23: 59:59 CLS Outpatient MADL PAPER MILL MANAGERJHONATAN [id number] 02/26/2014 10:03:00 02/26/2014 23: 59:59 CLS Outpatient CURRIE DORICHAIlda Monk [id number] 02/26/2014 10:03:00 02/26/2014 23: 59:59 CLS Outpatient CURRIE DOAMELIA Lacho [id number] 02/26/2014 08:44:00 02/26/2014 23: 59:59 CLS Outpatient CHARITY PAPER MILL MANAGERMARCI A [id number] 02/19/2014 08:39:00 02/19/2014 23: 59:59 CLS Outpatient CURRIE DO AMELIA Monk [id number] 02/06/2014 08:49:00 02/06/2014 23: 59:59 CLS Outpatient CURRIE DO, AMELIA Monk [id number] 01/22/2014 08:32:00 01/22/2014 23: 59:59 CLS Outpatient CURRIE DO AMELIA Mnok [id number] 12/06/2013 10:19:00 12/06/2013 23: 59:59 CLS Outpatient MARILEE MD, ALLI M [id number] 10/12/2013 09:23:00 10/12/2013 23: 59:59 CLS Outpatient MAGDALENA EUCEDA MD [id number] 10/12/2013 09:23:00 10/12/2013 23: 59:59 CLS Outpatient MAGDALENA EUCEDA MD [id number] 10/02/2013 14:34:00 10/02/2013 23: 59:59 CLS Outpatient FELIBERTO GARCIA APRN [id number] 07/02/2013 13:38:00 07/02/2013 23: 59:59 CLS Outpatient [id number] 01/16/2013 11:02:00 01/16/2013 23: 59:59 CLS Outpatient [id number] 11/30/2012 09:14:00 11/30/2012 23: 59:59 CLS Outpatient MAGDALENA EUCEDA MD [id number] 11/20/2012 11:53:00 11/20/2012 23: 59:59 CLS Outpatient [id number] 10/18/2012 09:51:00 10/18/2012 23: 59:59 CLS Outpatient MAGDALENA EUCEDA MD [id number] 10/18/2012 09:51:00 10/18/2012 23: 59:59 CLS Outpatient MAGDALENA EUCEDA MD [id number] 09/14/2012 09:40:00 09/14/2012 23: 59:59 CLS Outpatient MAGDALENA EUCEDA MD 61 07/12/2012 08:30:00 07/12/2012 23:59: 59 CLS Outpatient MAGDALENA EUCEDA MD [id number] 04/17/2013 09:37:00 Document Registration [id number] 04/17/2013 09:37:00 Document Registration [id number] 03/09/2013 08:23:00 Document Registration [id number] 03/09/2013 08:23:00 Document Registration [id number] 02/21/2013 10:38:00 Document Registration [id number] 01/10/2013 09:31:00 Document Registration
--- OUTSIDE RECORDS SUMMARY | 2017-02-08 11:55 | XMS REPORT ---
Author Author BHARAT MANCIA [facility] eClinicalWorks Address Unknown Phone Unavailable Care Team Providers Care Sas Clinical Programmer Name Role Phone BHARAT MANCIA CP Unavailable Allergies No Known Allergies Problems Problem Type Condition Code Onset Dates Condition Status Problem Nontoxic uninodular goiter 241.0 Active Problem Urge incontinence 788.31 Active Problem Atherosclerotic heart disease of [place] coronary artery without angina pectoris I25.10 Active Problem Essential (primary) hypertension I10 Active Problem long-term (current) use of anticoagulants Z79.01 Active Problem Chronic airway obstruction, not elsewhere classified 496 Active Problem Impaired fasting glucose 790.21 Active Problem Hyperglycemia R73.9 Active Problem COPD (chronic obstructive pulmonary disease) J44.9 Active Medications Medication Code System Code Instructions Start Date End Date Status Dosage Nexium [facility] [address]-87 40 mg Orally Once a day Oct 22, 2014 1 capsule Results No Known Results Summary Purpose eClinicalWorks Submission
--- OUTSIDE RECORDS SUMMARY | 2017-02-08 11:55 | XMS REPORT ---
Author Author BHARAT MANCIA [facility] Address [address] [place] [address] Care Team Providers Care Shank Tapper Name Role Phone BHARAT MANCIA Unavailable PROBLEMS Type Condition ICD9-CM Code QLH81-TO Code Onset Dates Condition Status SNOMED Code Problem Nontoxic uninodular goiter 241.0 Active 227610208 Problem Chronic airway obstruction, not elsewhere classified 496 Active 97160946 Problem Impaired fasting glucose 790.21 Active 747284278 Problem Urge incontinence 788.31 Active 22320246 Problem Breast cancer screening Z12.39 Active 186052330 Problem jail (current) use of anticoagulants Z79.01 Active 527596968 Problem Hyperglycemia R73.9 Active 92822608 Problem COPD (chronic obstructive pulmonary disease) J44.9 Active 66414417 Problem Atherosclerotic heart disease of [place] coronary artery without angina pectoris I25.10 Active 476434099210622 Problem Essential (primary) hypertension I10 Active 03737835 ALLERGIES No Known Allergies SOCIAL HISTORY No smoking Hx information available PLAN OF CARE VITAL SIGNS MEDICATIONS Medication Instructions Dosage Frequency Start Date End Date Duration Status Hydrocodone-Acetaminophen 7.5-325 MG Orally Once a day 1 tablet as needed 24h 16 Nov, 2014 Active RESULTS No Results PROCEDURES No Known procedures IMMUNIZATIONS No Known Immunizations
--- OUTSIDE RECORDS SUMMARY | 2017-02-08 11:55 | XMS REPORT ---
Author Author BHARAT MANCIA Organization eClinicalWorks Address Unknown Phone Unavailable Care Team Providers Care Sql Application Developer Name Role Phone BHARAT MANCIA CP Unavailable Allergies No Known Allergies Problems Problem Type Condition Code Onset Dates Condition Status Assessment Meningitis contact Z20.89 Active Problem Chronic airway obstruction, not elsewhere classified 496 Active Problem Impaired fasting glucose 790.21 Active Problem CAD (coronary artery disease) 414.00 Active Problem Urge incontinence 788.31 Active Problem Essential hypertension, benign 401.1 Active Problem Encounter for long-term (current) use of anticoagulants V58.61 Active Problem Nontoxic uninodular goiter 241.0 Active Medications Medication Code System Code Instructions Start Date End Date Status Dosage Ciprofloxacin [facility] [address]-09 500 MG Orally Once today. Prophylaxis for Bacterial Meningitis Jul 30, 2015 1 tablet Results No Known Results Summary Purpose [employer] Charge[employer] Submission
--- OUTSIDE RECORDS SUMMARY | 2017-02-08 11:55 | XMS REPORT ---
Author Author BHARAT MANCIA [facility] eClinicalWorks Address Unknown Phone Unavailable Care Team Providers Care Mountain Services Manager Name Role Phone BHARAT MANCIA CP Unavailable Allergies No Known Allergies Problems Problem Type Condition ICD-9 Code Onset Dates Condition Status Problem Chronic [...] Status Dosage Hydrocodone-Acetaminophen [facility] [address]-57 7.5-325 MG Pt needs an appt in JunDec 02, 2014 1 Tablet by Oral route 1 time per day PRN Results No Known Results Summary Purpose eClinicalWorks Submission
--- OUTSIDE RECORDS SUMMARY | 2017-02-08 11:55 | XMS REPORT ---
Author Author BHARAT MANCIA [facility] eClinicalWorks Address Unknown Phone Unavailable Care Team Providers Care Weir Fisher Name Role Phone BHARAT MANCIA CP Unavailable Allergies, Adverse Reactions, Alerts Substance Reaction Event Type Singulair Info Not Available Drug Allergy Simvastatin Info Not Available Drug Allergy Penicillin V Potassium Info Not Available Drug Allergy Problems Problem Type Condition Code Onset Dates Condition Status Assessment Back pain, unspecified back pain laterality, unspecified location M54.9 Active Assessment Ear pain, right H92.01 Active Assessment High risk medication use Z79.899 Active Problem Chronic airway obstruction, not elsewhere classified 496 Active Problem Impaired fasting glucose 790.21 Active Problem CAD (coronary artery disease) 414.00 Active Problem Urge incontinence 788.31 Active Problem Essential hypertension, benign 401.1 Active Problem Encounter for long-term (current) use of anticoagulants V58.61 Active Problem Nontoxic uninodular goiter 241.0 Active Medications Medication Code System Code Instructions Start Date End Date Status Dosage Furosemide [facility] [address]-31 40 MG Oct 22, 2014 1 tablet by Oral route 1 time per day Metoprolol Succinate ER [facility] [address]-13 25 MG Orally Once a day February 14, 2015 1 tablet Hydrocodone-Acetaminophen [facility] [address]-10 7.5-325 MG LAST REFILL PT MUST HAVE AN APPT Dec 02, 2014 1 Tablet by Oral route 1 time per day PRN Nexium [facility] [address]-79 40 MG Oct 22, 2014 1 capsule by Oral route 1 time per day ProAir HFA [facility] [address]-07 90 mcg/actuation January 06, 2015 inhale 2 puffs by Inhalation route every 6 hours as needed PRN shortness of breath/cough Warfarin Sodium [facility] 51992040028 6MG TAKE ONE TABLET BY MOUTH ONCE DAILY Ciprofloxacin [facility] [address]-67 500 MG Orally Once today. Prophylaxis for Bacterial Meningitis Jul 30, 2015 1 tablet Procedures Procedure Coding System Code Date Office Visit, Est Pt., Level 3 CPT-4 34947 Aug 04, 2015 VENIPUNCT, ROUTINE* CPT-4 19356 Aug 04, 2015 PROTHROMBIN TIME CPT-4 27689 Aug 04, 2015 Vital Signs Date/Time: Aug 04, 2015 Temperature 97.5 F Weight 199.1 lbs Height 59 in BMI 40.21 Index Blood Pressure Diastolic 84 mmHg Blood Pressure Systolic 120 mmHg Cardiac Monitoring Heart Rate 64 bpm Results Name Result Date Reference Range Unit Abnormality Flag ROUTINE VENIPUNCTURE PT/INR ----Prothrombin Time 26.8 [id number] 9.1-12.0 sec H ----INR 2.4 [id number] 0.8-1.2 H Summary Purpose eClinicalWorks Submission
--- OUTSIDE RECORDS SUMMARY | 2017-02-08 11:55 | XMS REPORT ---
Author Author BHARAT MANCIA Organization eClinicalWorks Address Unknown Phone Unavailable Care Team Providers Care Equal Opportunity Counselor Name Role Phone BHARAT MANCIA CP Unavailable [...]
--- OUTSIDE RECORDS SUMMARY | 2017-02-08 11:55 | XMS REPORT ---
Author OG Pineda [facility] eClinicalWorks Address Unknown Phone Unavailable Care Team Providers Care Logging Specialist Name Role Phone OG AARON CP Unavailable Allergies, Adverse Reactions, Alerts Substance Reaction Event Type Singulair Info Not Available Drug Allergy Simvastatin Info Not Available Drug Allergy Penicillin V Potassium Info Not Available Drug Allergy Iodine Info Not Available Drug Allergy Problems Problem Type Condition Code Onset Dates Condition Status Problem Urge incontinence 788.31 Active Problem Impaired fasting glucose 790.21 Active Problem Nontoxic uninodular goiter 241.0 Active Assessment Acute non-recurrent frontal sinusitis J01.10 Active Problem terminal gauger (current) use of anticoagulants Z79.01 Active Problem Atherosclerotic heart disease of [place] coronary artery without angina pectoris I25.10 Active Problem Breast cancer screening Z12.39 Active Problem COPD (chronic obstructive pulmonary disease) J44.9 Active Problem Chronic airway obstruction, not elsewhere classified 496 Active Problem Essential (primary) hypertension I10 Active Problem Hyperglycemia R73.9 Active Medications Medication Code System Code Instructions Start Date End Date Status Dosage Nebulizer/Tubing/Mouthpiece ND 0 ... January 05, 2016 as directed Albuterol Sulfate HFA [facility] [address]-00 108 (90 Base) MCG/ACT Inhalation 4 times a day Sep 01, 2016 2 puffs as needed MetFORMIN HCl [facility] [address]-53 500 MG Orally twice a day April 26, 2016 2 tablet Warfarin Sodium [facility] [address]-22 6 MG Orally 1 tablet daily on M ,T,,,Tue and 1.5 Tablets on W, and Sat Esomeprazole Magnesium ND 73042227044 40MG TAKE ONE CAPSULE BY MOUTH ONCE DAILY Hydrocodone-Acetaminophen [facility] [address]-40 7.5-325 MG Orally Once a day Dec 02, 2014 1 tablet as needed Furosemide ND 86307690958 40 MG 1 tablet by Oral route 1 time per day Metoprolol Succinate ER [facility] [address]-11 25 MG Orally Once a day December [address] [facility] [address]-81 40 mg Orally Once a day Oct 22, 2014 1 capsule Doxycycline Hyclate [facility] [address]-57 100 MG Orally every 12 hrs Sep 01, 2016 Sep 11, 2016 1 capsule Metoprolol Succinate ER [facility] 36892542959 25MG Orally Once a day 1 tablet Albuterol Sulfate [facility] [address]-74 (2.5 MG/3ML) 0.083% Inhalation 2 times a day December 22, 2015 3 ml ProAir HFA [facility] 06542470284 108MCG/A INHALE TWO PUFFS BY MOUTH EVERY 6 HOURS NEEDED FOR SHORTNESS OF BREATH OR COUGH Promethazine-Codeine [facility] [address]-13 6.25-10 MG/5ML Orally every 6 hrs Sep 01, 2016 5 ml as needed Procedures Procedure Coding System Code Date Office Visit, Est Pt., Level 3 CPT-4 13005 Sep 01, 2016 [facility] VISIT ESTABLISHED PATIENT CPT-4 G0467 Sep 01, 2016 Vital Signs Date/Time: Sep 01, 2016 Cardiac Monitoring Heart Rate 78 bpm Weight 199 lbs Height 59 in BMI 40.19 Index Blood Pressure Diastolic 78 mmHg Blood Pressure Systolic 122 mmHg Results No Known Results Summary Purpose eClinicalWorks Submission
--- OUTSIDE RECORDS SUMMARY | 2017-02-08 11:55 | XMS REPORT ---
Author Author BHARAT MANCIA Organization eClinicalWorks Address Unknown Phone Unavailable Care Team Providers Care Special Inspector Name Role Phone BHARAT MANCIA CP Unavailable Allergies No Known Allergies Problems Problem Type Condition Code Onset Dates Condition Status Problem Urge incontinence 788.31 Active Problem Impaired fasting glucose 790.21 Active Problem Nontoxic uninodular goiter 241.0 Active Problem halfway (current) use of anticoagulants Z79.01 Active Problem Atherosclerotic heart disease of [place] coronary artery without angina pectoris I25.10 Active Problem Breast cancer screening Z12.39 Active Problem COPD (chronic obstructive pulmonary disease) J44.9 Active Problem Chronic airway obstruction, not elsewhere classified 496 Active Problem Essential (primary) hypertension I10 Active Problem Hyperglycemia R73.9 Active Medications No Known Medications Results No Known Results Summary Purpose eClinicalWorks Submission
--- OUTSIDE RECORDS SUMMARY | 2017-02-08 11:55 | XMS REPORT ---
Author Author BHARAT MANCIA Organization eClinicalWorks Address Unknown Phone Unavailable Care Team Providers Care Bullet Maker Name Role Phone BHARAT MANCIA CP Unavailable [...] Start Date End Date Status Dosage Furosemide [facility] [address]-33 40 MG Oct 22, 2014 1 tablet by Oral route 1 time per day Results No Known Results Summary Purpose eClinicalWorks Submission
--- OUTSIDE RECORDS SUMMARY | 2017-02-08 11:55 | XMS REPORT ---
Author Author BHARAT MANCIA Organization eClinicalWorks Address Unknown Phone Unavailable Care Team Providers Care Craft Artist Name Role Phone BHARAT MANCIA CP Unavailable [...]
--- OUTSIDE RECORDS SUMMARY | 2017-02-08 11:56 | XMS REPORT ---
Author Author BHARAT MANCIA Organization eClinicalWorks Address Unknown Phone Unavailable Care Team Providers Care Floor Coverer Apprentice Name Role Phone BHARAT MANCIA CP Unavailable [...] Start Date End Date Status Dosage Nexium [facility] [address]-45 40 MG Oct 22, 2014 1 capsule by Oral route 1 time per day Results No Known Results Summary Purpose eClinicalWorks Submission
--- OUTSIDE RECORDS SUMMARY | 2017-02-08 11:56 | XMS REPORT ---
Author Author BHARAT MANCIA Organization eClinicalWorks Address Unknown Phone Unavailable Care Team Providers Care Intel Recruiter Name Role Phone BHARAT MANCIA CP Unavailable Allergies No Known Allergies Problems Problem Type Condition Code Onset Dates Condition Status Problem Nontoxic uninodular goiter 241.0 Active Problem Urge incontinence 788.31 Active Problem Atherosclerotic heart disease of [place] coronary artery without angina pectoris I25.10 Active Problem Essential (primary) hypertension I10 Active Problem senior living (current) use of anticoagulants Z79.01 Active Problem Chronic airway obstruction, not elsewhere classified 496 Active Problem Impaired fasting glucose 790.21 Active Problem Hyperglycemia R73.9 Active Problem COPD (chronic obstructive pulmonary disease) J44.9 Active Medications No Known Medications Results No Known Results Summary Purpose eClinicalWorks Submission
--- OUTSIDE RECORDS SUMMARY | 2017-02-08 11:56 | XMS REPORT ---
Author Author BHARAT MANCIA Organization eClinicalWorks Address Unknown Phone Unavailable Care Team Providers Care Heel Padder Name Role Phone BHARAT MANCIA CP Unavailable [...]
--- OUTSIDE RECORDS SUMMARY | 2017-02-08 11:56 | XMS REPORT ---
Author ROSENDO Hernandez Organization eClinicalWorks Address Unknown Phone Unavailable Care Team Providers Care Paint Spray Tender Name Role Phone ROSENDO ALFONSO CP Unavailable Allergies, Adverse Reactions, Alerts Substance Reaction Event Type Singulair Info Not Available Drug Allergy Simvastatin Info Not Available Drug Allergy Penicillin V Potassium Info Not Available Drug Allergy Iodine Info Not Available Drug Allergy Problems Problem Type Condition Code Onset Dates Condition Status Assessment Bronchitis J40 Active Problem Chronic airway obstruction, not elsewhere classified 496 Active Problem Impaired fasting glucose 790.21 Active Problem CAD (coronary artery disease) 414.00 Active Problem Urge incontinence 788.31 Active Problem Essential hypertension, benign 401.1 Active Problem Encounter for long-term (current) use of anticoagulants V58.61 Active Problem Nontoxic uninodular goiter 241.0 Active Medications Medication Code System Code Instructions Start Date End Date Status Dosage Hydrocodone-Acetaminophen [facility] [address]-48 7.5-[address] Mclain to sign for Irma Dec 02, 2014 1 Tablet by Oral route 1 time per day PRN Furosemide [facility] [address]-37 40 MG Oct 22, 2014 1 tablet by Oral route 1 time per day Nexium [facility] [address]-50 40 MG Oct 22, 2014 1 capsule by Oral route 1 time per day ProAir HFA [facility] [address]-32 90 mcg/actuation January 06, 2015 inhale 2 puffs by Inhalation route every 6 hours as needed PRN shortness of breath/cough Warfarin Sodium [facility] 26084215269 6MG TAKE ONE TABLET BY MOUTH ONCE DAILY Metoprolol Succinate ER [facility] 68090419246 25MG Orally Once a day 1 tablet Doxycycline Monohydrate [facility] [address]-60 100 MG Orally every 12 hrs SepOct 10, 2015 1 tablet Procedures Procedure Coding System Code Date Office Visit, Est Pt., Level 3 CPT-4 26597 Sep 30, 2015 Vital Signs Date/Time: Sep 30, 2015 Temperature 96.8 F Weight 199.6 lbs Height 59 in BMI 40.31 Index Blood Pressure Diastolic 62 mmHg Blood Pressure Systolic 110 mmHg Cardiac Monitoring Heart Rate 64 bpm Results No Known Results Summary Purpose eClinicalWorks Submission
--- OUTSIDE RECORDS SUMMARY | 2017-02-08 11:56 | XMS REPORT ---
Author Author BHARAT MANCIA [facility] Address [address] [place] [address] Care Team Providers Care Commodity Trader Name Role Phone BHARAT MANCIA Unavailable PROBLEMS Type Condition ICD9-CM Code UTM09-CD Code Onset Dates Condition Status SNOMED Code Problem Nontoxic uninodular goiter 241.0 Active 470091956 Problem Chronic airway obstruction, not elsewhere classified 496 Active 73213841 Problem Impaired fasting glucose 790.21 Active 512779096 Problem Urge incontinence 788.31 Active 40124247 Problem Breast cancer screening Z12.39 Active 972645042 Problem residential (current) use of anticoagulants Z79.01 Active 108254685 Problem Hyperglycemia R73.9 Active 73337747 Problem COPD (chronic obstructive pulmonary disease) J44.9 Active 60091641 Problem Atherosclerotic heart disease of [place] coronary artery without angina pectoris I25.10 Active 653139435342826 Problem Essential (primary) hypertension I10 Active 27221075 ALLERGIES No Known Allergies SOCIAL HISTORY No smoking Hx information available PLAN OF CARE VITAL SIGNS MEDICATIONS No Known Medications RESULTS No Results PROCEDURES No Known procedures IMMUNIZATIONS No Known Immunizations
--- OUTSIDE RECORDS SUMMARY | 2017-02-08 11:56 | XMS REPORT ---
Author Author BHARAT MANCIA Organization eClinicalWorks Address Unknown Phone Unavailable Care Team Providers Care Travel Service Consultant Name Role Phone BHARAT MANCIA CP Unavailable Allergies No Known Allergies Problems Problem Type Condition Code Onset Dates Condition Status Problem Urge incontinence 788.31 Active Problem Impaired fasting glucose 790.21 Active Problem Nontoxic uninodular goiter 241.0 Active Problem custodial (current) use of anticoagulants Z79.01 Active Problem Atherosclerotic heart disease of [place] coronary artery without angina pectoris I25.10 Active Problem Breast cancer screening Z12.39 Active Problem COPD (chronic obstructive pulmonary disease) J44.9 Active Problem Chronic airway obstruction, not elsewhere classified 496 Active Problem Essential (primary) hypertension I10 Active Problem Hyperglycemia R73.9 Active Medications Medication Code System Code Instructions Start Date End Date Status Dosage Hydrocodone-Acetaminophen [facility] [address]-28 7.5-325 MG Orally Once a day Dec 02, 2014 1 tablet as needed Results No Known Results Summary Purpose eClinicalWorks Submission
--- OUTSIDE RECORDS SUMMARY | 2017-02-08 11:56 | XMS REPORT ---
Author Author IRMA MANCIA Organization eClinicalWorks Address Unknown Phone Unavailable Care Team Providers Care Well Surveying Engineer Name Role Phone IRMA MANCIA CP Unavailable Allergies No Known Allergies [...] Start Date End Date Status Dosage Hydrocodone-Acetaminophen [facility] [address]-26 7.5-[address] Mclain to sign for Irma Dec 02, 2014 1 Tablet by Oral route 1 time per day PRN Results No Known Results Summary Purpose eClinicalWorks Submission
--- OUTSIDE RECORDS SUMMARY | 2017-02-08 11:56 | XMS REPORT ---
Author Author BHARAT MANCIA Organization eClinicalWorks Address Unknown Phone Unavailable Care Team Providers Care Day Care Worker Name Role Phone BHARAT MANCIA CP Unavailable Allergies No Known Allergies Problems Problem Type Condition Code Onset Dates Condition Status Problem Urge incontinence 788.31 Active Problem Impaired fasting glucose 790.21 Active Problem Nontoxic uninodular goiter 241.0 Active Problem half-way (current) use of anticoagulants Z79.01 Active Problem Atherosclerotic heart disease of [place] coronary artery without angina pectoris I25.10 Active Problem Breast cancer screening Z12.39 Active Problem COPD (chronic obstructive pulmonary disease) J44.9 Active Problem Chronic airway obstruction, not elsewhere classified 496 Active Problem Essential (primary) hypertension I10 Active Problem Hyperglycemia R73.9 Active Medications No Known Medications Results No Known Results Summary Purpose eClinicalWorks Submission
--- OUTSIDE RECORDS SUMMARY | 2017-02-08 11:56 | XMS REPORT ---
Author Author BHARAT MANCIA Organization eClinicalWorks Address Unknown Phone Unavailable Care Team Providers Care Printed Circuit Designer Name Role Phone BHARAT MANCIA CP Unavailable Allergies No Known Allergies Problems Problem Type Condition Code Onset Dates Condition Status Problem Urge incontinence 788.31 Active Problem Impaired fasting glucose 790.21 Active Problem Nontoxic uninodular goiter 241.0 Active Problem snf (current) use of anticoagulants Z79.01 Active Problem Atherosclerotic heart disease of [place] coronary artery without angina pectoris I25.10 Active Problem Breast cancer screening Z12.39 Active Problem COPD (chronic obstructive pulmonary disease) J44.9 Active Problem Chronic airway obstruction, not elsewhere classified 496 Active Problem Essential (primary) hypertension I10 Active Problem Hyperglycemia R73.9 Active Medications Medication Code System Code Instructions Start Date End Date Status Dosage Warfarin Sodium [facility] [address]-24 6 MG Orally January 14, 2016 1 tablet daily on M,T,TH,F,Sun and 1.5 Tablets on W, and Sat Results No Known Results Summary Purpose eClinicalWorks Submission
--- OUTSIDE RECORDS SUMMARY | 2017-02-08 11:56 | XMS REPORT ---
Author Author BHARAT MANCIA Organization eClinicalWorks Address Unknown Phone Unavailable Care Team Providers Care Special Education Administrator Name Role Phone BHARAT MANCIA CP Unavailable Allergies No Known Allergies Problems Problem Type Condition Code Onset Dates Condition Status Problem Urge incontinence 788.31 Active Problem Impaired fasting glucose 790.21 Active Problem Nontoxic uninodular goiter 241.0 Active Problem correction (current) use of anticoagulants Z79.01 Active Problem Atherosclerotic heart disease of [place] coronary artery without angina pectoris I25.10 Active Problem Breast cancer screening Z12.39 Active Problem COPD (chronic obstructive pulmonary disease) J44.9 Active Problem Chronic airway obstruction, not elsewhere classified 496 Active Problem Essential (primary) hypertension I10 Active Problem Hyperglycemia R73.9 Active Medications Medication Code System Code Instructions Start Date End Date Status Dosage Hydrocodone-Acetaminophen [facility] [place] [address]-72 7.5-325 MG Orally Once a day Dec 02, 2014 1 tablet as needed Results No Known Results Summary Purpose eClinicalWorks Submission
--- OUTSIDE RECORDS SUMMARY | 2017-02-08 11:56 | XMS REPORT ---
Author Author SAE ALMONTE [facility] eClinicalWorks Address Unknown Phone Unavailable Care Team Providers Care Drop Wirer Name Role Phone SAE ALMONTE CP Unavailable Allergies, Adverse Reactions, Alerts Substance Reaction Event Type Singulair Info Not Available Drug Allergy Simvastatin Info Not Available Drug Allergy Penicillin V Potassium Info Not Available Drug Allergy Iodine Info Not Available Drug Allergy Problems Problem Type Condition Code Onset Dates Condition Status Assessment Encounter for dental examination Z01.20 Active Problem Chronic airway obstruction, not elsewhere classified 496 Active Problem Impaired fasting glucose 790.21 Active Problem CAD (coronary artery disease) 414.00 Active Problem Urge incontinence 788.31 Active Problem Essential hypertension, benign 401.1 Active Problem Encounter for long-term (current) use of anticoagulants V58.61 Active Problem Nontoxic uninodular goiter 241.0 Active Medications Medication Code System Code Instructions Start Date End Date Status Dosage ProAir HFA [facility] [address]-95 90 mcg/actuation January 06, 2015 inhale 2 puffs by Inhalation route every 6 hours as needed PRN shortness of breath/cough Metoprolol Succinate ER [facility] [address]-67 25 MG Orally Once a day February 14, 2015 1 tablet Warfarin Sodium [facility] 66648402400 6MG TAKE ONE TABLET BY MOUTH ONCE DAILY Furosemide [facility] [address]-74 40 MG Oct 22, 2014 1 tablet by Oral route 1 time per day Clindamycin HCl [facility] [address]-28 150 MG Orally every 6 hrs Aug 05, 2015 Aug 12, 2015 1 capsule Nexium [facility] [address]-31 40 MG Oct 22, 2014 1 capsule by Oral route 1 time per day Procedures Procedure Coding System Code Date INTRAORL-PERIAPICAL EA ADD FILM CPT-4 D0230 Aug 05, 2015 INTRAORL-PERIAPICAL EA ADD FILM CPT-4 D0230 Aug 05, 2015 INTRAORL-PERIAPICAL 1 FILM 15246 CPT-4 D0220 Aug 05, 2015 INTRAORL-PERIAPICAL EA ADD FILM CPT-4 D0230 Aug 05, 2015 INTRAORL-PERIAPICAL EA ADD FILM CPT-4 D0230 Aug 05, 2015 PANORAMIC FILM SEE ALSO CODE 33253 CPT-4 D0330 Aug 05, 2015 BITEWINGS - FOUR FILMS CPT-4 D0274 Aug 05, 2015 Vital Signs Date/Time: Aug 05, 2015 Blood Pressure Diastolic 63 mmHg Blood Pressure Systolic 112 mmHg Height 59 in Results No Known Results Summary Purpose eClinicalWorks Submission
--- OUTSIDE RECORDS SUMMARY | 2017-02-08 11:56 | XMS REPORT ---
Author ZACHARY Gallo [facility] eClinicalWorks Address Unknown Phone Unavailable Care Team Providers Care Pcb Design Engineer Name Role Phone ZACHARY FARRELL Unavailable Allergies, Adverse Reactions, Alerts Substance Reaction Event Type Singulair Info Not Available Drug Allergy Simvastatin Info Not Available Drug Allergy Penicillin V Potassium Info Not Available Drug Allergy Iodine Info Not Available Drug Allergy Problems Problem Type Condition Code Onset Dates Condition Status Assessment Allergic rhinitis J30.9 Active Problem Nontoxic uninodular goiter 241.0 Active Problem Urge incontinence 788.31 Active Assessment Stress incontinence N39.3 Active Assessment Cough R05 Active Problem Atherosclerotic heart disease of [place] coronary artery without angina pectoris I25.10 Active Problem Essential (primary) hypertension I10 Active Problem intermediate (current) use of anticoagulants Z79.01 Active Problem Chronic airway obstruction, not elsewhere classified 496 Active Problem Impaired fasting glucose 790.21 Active Problem Hyperglycemia R73.9 Active Problem COPD (chronic obstructive pulmonary disease) J44.9 Active Medications Medication Code System Code Instructions Start Date End [place] D[place] [address]-16 40 MG PT NEEDS AN APPT FOR FURTHER REFILLS Oct 1 capsule by Oral route 1 time per day Flonase NDC 0 50 mcg/actuation 2 times a day Sep 30, 2014 1 sprays by Nasal route 2 times per day in each nostril [place] [address]-70 200 mg Orally Three times a day prn cough Oct 23, 2014 1 capsule by Oral route 3 times per day for 5 days PRN cough--total of 200mg [place] [address]-67 7.5-325 MG Orally Once a day Dec 02, 2014 1 tablet Nebulizer/Tubing/Mouthpiece NDC 0 ... January 05, 2016 as directed Furosemide ND 83283953281 40 MG 1 tablet by Oral route 1 time per day Zyrtec Allergy [facility] [address]-36 10 mg Orally Once a day 1 tablet Warfarin Sodium NDC [address]-76 6 MG Orally Once a day January 14, 2016 1 tablet Metoprolol Succinate ER [facility] [address]-47 25 MG Orally Once a day December 1 tablet Albuterol Sulfate [facility] [address]-84 (2.5 MG/3ML) 0.083% Inhalation 2 times a day December 22, 2015 3 ml ProAir HFA [facility] 46308971040 108MCG/A INHALE TWO PUFFS BY MOUTH EVERY 6 HOURS NEEDED FOR SHORTNESS OF BREATH OR COUGH Procedures Procedure Coding System Code Date Office Visit, Est Pt., Level 3 CPT-4 69863 January 29, 2016 [facility] VISIT ESTABLISHED PATIENT CPT-4 G0467 January 29, 2016 Vital Signs Date/Time: January 29, 2016 Temperature 97.2 F Weight 202.2 lbs Height 59 in BMI 40.83 Index Blood Pressure Diastolic 78 mmHg Blood Pressure Systolic 142 mmHg Cardiac Monitoring Heart Rate 88 bpm Results No Known Results Summary Purpose eClinicalWorks Submission
--- OUTSIDE RECORDS SUMMARY | 2017-02-08 11:56 | XMS REPORT ---
Author MAURIZIO Pitts [facility] eClinicalWorks Address Unknown Phone Unavailable Care Team Providers Care Water Tanker Driver Name Role Phone MAURIZIO SEYMOUR CP Unavailable Allergies No Known Allergies Problems Problem Type Condition Code Onset Dates Condition Status Problem Urge incontinence 788.31 Active Problem Impaired fasting glucose 790.21 Active Problem Nontoxic uninodular goiter 241.0 Active Problem group home (current) use of anticoagulants Z79.01 Active Problem Atherosclerotic heart disease of [place] coronary artery without angina pectoris I25.10 Active Problem Breast cancer screening Z12.39 Active Problem COPD (chronic obstructive pulmonary disease) J44.9 Active Problem Chronic airway obstruction, not elsewhere classified 496 Active Problem Essential (primary) hypertension I10 Active Problem Hyperglycemia R73.9 Active Medications Medication Code System Code Instructions Start Date End Date Status Dosage Hydrocodone-Acetaminophen [facility] 2[facility] [address]-06 7.5-325 MG Orally Once a day Sep 03, 2016 1 tablet as needed Results No Known Results Summary Purpose eClinicalWorks Submission
--- OUTSIDE RECORDS SUMMARY | 2017-02-08 11:57 | XMS REPORT ---
Author Author IRMA MANCIA Organization eClinicalWorks Address Unknown Phone Unavailable Care Team Providers Care Certified Tumor Registrar Name Role Phone IRMA MANCIA CP Unavailable [...] Start Date End Date Status Dosage Hydrocodone-Acetaminophen [facility] [address]-76 7.5-[address] Mclain to sign for Irma Dec 02, 2014 1 Tablet by Oral route 1 time per day PRN Results No Known Results Summary Purpose eClinicalWorks Submission
--- OUTSIDE RECORDS SUMMARY | 2017-02-08 11:57 | XMS REPORT ---
Author Author BHARAT MANCIA Organization eClinicalWorks Address Unknown Phone Unavailable Care Team Providers Care Freezer Person Name Role Phone BHARAT MANCIA CP Unavailable Allergies No Known Allergies Problems Problem Type Condition Code Onset Dates Condition Status Problem Urge incontinence 788.31 Active Problem Impaired fasting glucose 790.21 Active Problem Nontoxic uninodular goiter 241.0 Active Problem [facility] (current) use of anticoagulants Z79.01 Active Problem Atherosclerotic heart disease of [place] coronary artery without angina pectoris I25.10 Active Problem Breast cancer screening Z12.39 Active Problem COPD (chronic obstructive pulmonary disease) J44.9 Active Problem Chronic airway obstruction, not elsewhere classified 496 Active Problem Essential (primary) hypertension I10 Active Problem Hyperglycemia R73.9 Active Medications Medication Code System Code Instructions Start Date End Date Status Dosage Hydrocodone-Acetaminophen [facility] [address]-66 7.5-325 MG Orally Once a day Dec 02, 2014 1 tablet as needed Results No Known Results Summary Purpose eClinicalWorks Submission
--- OUTSIDE RECORDS SUMMARY | 2017-02-08 11:57 | XMS REPORT ---
Author Author BHARAT MANCIA Organization eClinicalWorks Address Unknown Phone Unavailable Care Team Providers Care Law Secretary Name Role Phone BHARAT MANCIA CP Unavailable [...] Status Dosage Furosemide [facility] [address]-43 40 MG Oct 22, 2014 1 tablet by Oral route 1 time per day Results No Known Results Summary Purpose eClinicalWorks Submission
--- OUTSIDE RECORDS SUMMARY | 2017-02-08 11:57 | XMS REPORT ---
Author Author BHARAT AMNCIA [facility] eClinicalWorks Address Unknown Phone Unavailable Care Team Providers Care Clerical Secretary Name Role Phone BHARAT MANCIA CP Unavailable Allergies No Known Allergies Problems Problem Type Condition Code Onset Dates Condition Status Problem Urge incontinence 788.31 Active Problem Impaired fasting glucose 790.21 Active Problem Nontoxic uninodular goiter 241.0 Active Assessment watermelon harvesting supervisor (current) use of anticoagulants Z79.01 Active Problem residential (current) use of anticoagulants Z79.01 Active Problem Atherosclerotic heart disease of [place] coronary artery without angina pectoris I25.10 Active Problem Breast cancer screening Z12.39 Active Problem COPD (chronic obstructive pulmonary disease) J44.9 Active Problem Chronic airway obstruction, not elsewhere classified 496 Active Problem Essential (primary) hypertension I10 Active Problem Hyperglycemia R73.9 Active Medications No Known Medications Results No Known Results Summary Purpose eClinicalWorks Submission
== END 2017-01-16 10:05 | disposition home or self-care (01) ==
LOC: EDUNIT# 09:05 → ER 09:06
DX: K02.9 Dental caries, unspecified (principal); I10 Essential (primary) hypertension; J44.9 Chronic obstructive pulmonary disease, unspecified; Z79.82 Long term (current) use of aspirin; Z79.01 Long term (current) use of anticoagulants; Z79.899 Other long term (current) drug therapy; Z95.1 Presence of aortocoronary bypass graft; Z95.2 Presence of prosthetic heart valve
CPT/HCPCS: 99282

== ENCOUNTER → 2017-02-11 | Outpatient (CLI) | payer MEDICARE, MEDICAID ==
[~2017-02-11] MED LIST changes: +RT-ALBUINH IH
--- NOTE | 2017-02-12 09:16 | ECHOCARDIOGRAPHY REPORT ---
DATE OF SERVICE: 02/11/2017 PROCEDURE: Two-dimensional echocardiogram. REFERRING PHYSICIAN: [facility]. MEASUREMENT: LVID end diastolic 3.0, IVS thickness 1.3, LVPW thickness 1.3, left atrial diameter 3.0, ejection fraction 60%. FINDINGS: 1. Technically difficult study. 2. The left ventricle is normal in size with moderate left ventricular hypertrophy; endocardium was not well visualized in all segments. Systolic function appeared to be normal, estimated ejection fraction 60%. 3. The left atrium is normal in size. No clots or thrombus were seen within the left atrium. 4. The right atrium and right ventricle are normal in size. No clots or thrombus were seen within the right side. 5. The mitral valve is calcified, leaflets were not well visualized. There is no mitral valve stenosis, no mitral regurgitation. 6. The patient has history of aortic valve replacement. The aortic valve was not well visualized. Doppler across the aortic valve estimated a peak gradient of 82 mmHg, mean gradient of 52 mmHg. Calculated valve area of 1 to 1.3 sq cm, did not change compared to the study of 2014. There is turbulence around the valve, no significant aortic regurgitation. 7. The tricuspid valve is normal in morphology with mild tricuspid regurgitation noted by color Doppler flow. Doppler across the tricuspid valve estimated a pulmonary artery pressure of 38 plus right atrial pressure. 8. The pulmonic valve is functioning normally. 9. No pericardial effusion. CONCLUSION: 1. Moderate left ventricular hypertrophy with normal systolic function, estimated ejection fraction 60%. 2. Prosthetic valve in the aortic position appeared to be similar to the finding that was noted in 2014. No significant change in the valve area or the function. 3. Mild mitral and tricuspid regurgitation. 4. Estimated pulmonary artery pressure of 45 mmHg. Job ID: [id number] DocumentID: [id number] Dictated Date: 02/11/2017 17:07:59 Crane Engineer Date: 02/12/2017 05:07:27 Dictated By: LATRELL HUITRON MD
== END ==
LOC: CARD 09:45
PROVIDERS: ATTEND Internal Medicine Cardiovascular Disease
DX: I25.10 Atherosclerotic heart disease of native coronary artery without angina pectoris (principal)
CPT/HCPCS: 93306

== ENCOUNTER → 2017-03-11 | Outpatient (CLI) | payer MEDICARE, MEDICAID ==
--- NOTE | 2017-03-11 13:50 | Diagnostic Imaging Report ---
PROCEDURE: US Thyroid. TECHNIQUE: Multiple real-time grayscale images were obtained of the thyroid in various projections. INDICATION: Thyroid nodule. COMPARISON: 12/12/2013. FINDINGS: The right thyroid lobe is 4.2 x 2.7 x 2.7 cm. The left lobe is 5.0 x 1.3 x 1.0 cm. There is a solid mass seen in the right thyroid lobe measuring 3.4 x 2.4 x 2.4 cm with internal vascularity seen. When compared to 2013 exam, there is no significant change noted suggestive of benign etiology. There is a 3-mm colloid cyst in the inferior aspect of the left thyroid lobe. IMPRESSION: Stable 3.4-cm right thyroid mass suggestive of benign etiology. Dictated by: Dictated on workstation # [id number]
== END ==
LOC: RAD 09:20
PROVIDERS: ATTEND Internal Medicine Cardiovascular Disease
DX: E04.1 Nontoxic single thyroid nodule (principal)
CPT/HCPCS: 76536

== ENCOUNTER 2017-06-20 13:31 | Emergency (ER) | payer MEDICARE, MEDICAID ==
[~2017-06-20] VITALS: Ht 162.6 cm; Wt 90.7 kg
--- OUTSIDE RECORDS SUMMARY | 2017-06-20 13:38 | XMS REPORT ---
Author Author BHARAT MANCIA [facility] Address [address] [place] [address] Care Team Providers Care Filter Changing Technician Name Role Phone BHARAT MANCIA Unavailable PROBLEMS Type Condition ICD9-CM Code ARD42-OT Code Onset Dates Condition Status SNOMED Code Problem Essential (primary) hypertension I10 Active 72082894 Problem prison (current) use of anticoagulants Z79.01 Active 992833830 Problem Atherosclerotic heart disease of [place] coronary artery without angina pectoris I25.10 Active 832303689142646 Problem Thyroid nodule, cold E04.1 Active 807721130 Problem COPD (chronic obstructive pulmonary disease) J44.9 Active 65243480 Problem Hyperglycemia R73.9 Active 22908716 Problem Dental examination Z01.20 Active 413729101 Problem Aortic valve stenosis, unspecified etiology I35.0 Active 38603149 Problem Heart valve disorder I38 Active 047693 Problem Breast cancer screening Z12.39 Active 631001300 Problem Essential hypertension I10 Active 49341345 Problem Hyperlipidemia, unspecified hyperlipidemia type E78.5 Active 67048013 ALLERGIES Unknown Allergies SOCIAL HISTORY No smoking Hx information available PLAN OF CARE VITAL SIGNS MEDICATIONS Medication Instructions Dosage Frequency Start Date End Date Duration Status Hydrocodone-Acetaminophen 7.5-325 MG Orally Once a day 1 tablet as needed 24h Aug, Active RESULTS No Results PROCEDURES No Known procedures IMMUNIZATIONS No Known Immunizations
--- OUTSIDE RECORDS SUMMARY | 2017-06-20 13:39 | XMS REPORT ---
Author Author BHARAT MANCIA [facility] Address [address] [place] [address] Care Team Providers Care Electric Power Superintendent Name Role Phone BHARAT MANCIA Unavailable PROBLEMS Type Condition ICD9-CM Code EYC19-UD Code Onset Dates Condition Status SNOMED Code Problem Essential (primary) hypertension I10 Active 38059297 Problem prison (current) use of anticoagulants Z79.01 Active 560157545 Problem Atherosclerotic heart disease of [place] coronary artery without angina pectoris I25.10 Active 595998306405057 Problem Thyroid nodule, cold E04.1 Active 876845268 Problem COPD (chronic obstructive pulmonary disease) J44.9 Active 16405152 Problem Hyperglycemia R73.9 Active 92144870 Problem Dental examination Z01.20 Active 920772119 Problem Aortic valve stenosis, unspecified etiology I35.0 Active 38562399 Problem Heart valve disorder I38 Active 346496 Problem Breast cancer screening Z12.39 Active 890813005 Problem Essential hypertension I10 Active 95626528 Problem Hyperlipidemia, unspecified hyperlipidemia type E78.5 Active 63338642 ALLERGIES Unknown Allergies SOCIAL HISTORY No smoking Hx information available PLAN OF CARE VITAL SIGNS MEDICATIONS Unknown Medications RESULTS No Results PROCEDURES No Known procedures IMMUNIZATIONS No Known Immunizations
[2017-06-20] MEDS ORDERED: HURRICAINE EXT TUBE (BENZOCAINE) ONE (14:10)
--- NOTE | 2017-06-20 14:12 | ED EENT ---
History of Present Illness General Chief Complaint: Dental Problems/Pain Stated Complaint: TOOTH ACHE Source: patient Exam Limitations: no limitations History of Present Illness Time seen by provider: 14:00 Initial Comments Here with complaint of right lower tooth pain that started this morning. Patient reports a piece of her tooth broke off last night. She is given follow- up with the dentist tomorrow. Denies fever or chills. Denies nausea or vomiting. Timing/Duration: gradual Severity: moderate Location: dental Associated Symptoms: No drooling, No facial pain/swelling, No fever, tooth pain Allergies and Home Medications Allergies Coded Allergies: Iodinated Contrast Media - Oral and (Verified Allergy, Unknown, 05/28/06) Penicillins (Verified Allergy, Unknown, 05/29/06) tramadol (Unverified Allergy, Unknown, 01/22/14) vancomycin (Verified Allergy, Unknown, 05/29/06) Home Medications Albuterol Sulfate 6.7 Gm Hfa.aer.ad, 2 PUFF IH Q6H PRN for SHORTNESS OF BREATH, (Reported) Aspirin 325 Mg Tab, 325 MG PO DAILY, Ref 0 (Reported) Cefprozil 250 Mg Tablet, 1 TAB PO BID for 10 Days, Ref 0 Prescribed by: OG FERNANDO on 05/14/141999 Esomeprazole Mag Trihydrate 40 Mg Capsule.dr, 40 MG PO DAILY, (Reported) Furosemide 40 Mg Tablet, 40 MG PO DAILY, Ref 0 (Reported) Metoprolol Succinate 25 Mg Tab.sr.24h, 25 MG PO DAILY, (Reported) Warfarin Sodium 3 Mg Tablet, 9 MG PO DAILY EXCEPT WOLFF/TU, (Reported) 12 mg on WOLFF-TU Warfarin Sodium 3 Mg Tablet, 12 MG PO ON SUN-TUES, (Reported) [Albuteral Inhaler] , NEEDED, (Reported) Review of Systems Constitutional: see HPI, No chills, No fever Nose: no symptoms reported Mouth: see HPI, pain, denies swelling Throat: no symptoms reported Respiratory: no symptoms reported Cardiovascular: no symptoms reported Skin: no symptoms reported Past Qfgndpq-Kiujnu-Jhmzch Hx Patient Social History Alcohol Use: Denies Use Smoking Status: Former Smoker Type Used: Cigarettes Former Smoker, Quit: Jan 15, 1974 Recent Foreign Travel: No Contact w/Someone Who Travel: No Recent Hopitalizations: No Immunizations Up To Date Tetanus Booster (TDap): Unknown Surgeries History of Surgeries: Yes Surgeries: Appendectomy, CABG, Tubal Ligation, Valve Replacement Respiratory History of Respiratory Disorde: Yes Respiratory Disorders: Asthma, Chronic Bronchitis, COPD Cardiovascular History of Cardiac Disorders: Yes Cardiac Disorders: Coronary Artery Disease, Hypertension, Valvular Heart Disease Reproductive System Hx Reproductive Disorders: No Genitourinary Genitourinary Disorders: UTI-Chronic Gastrointestinal History of Gastrointestinal Di: Yes Gastrointestinal Disorders: Gastroesophageal Reflux, Hiatal Hernia Musculoskeletal History of Musculoskeletal Dis: Yes Musculoskeletal Disorders: Arthritis, Rheumatoid Arthritis Reviewed Nursing Assessment Reviewed/Agree w Nursing PMH: Yes Family Medical History Significant Family History: No Pertinent Family Hx Physical Exam General Appearance: WD/WN, no apparent distress Mouth/Throat: dental tenderness, No excessive drooling, No mandibular swelling , No maxillary swelling, other (posterior right lower tooth that has dental caries and small piece of tooth missing.) Cardiovascular: regular rate, rhythm, no murmur Respiratory: lungs clear, normal breath sounds Neurologic/Psychiatric: alert, oriented x 3 Skin: normal color, warm/dry Progress/Results/Core Measures Results/Orders My Orders Orders - EVELINE PENG MD Lidocaine 2% Viscous 15 Ml (Xylocaine Vi (06/20/17 14:15) Progress Note : Progress Note Seen and evaluated. Lidocaine topical mixture given. Discharged home with return precautions. Patient verbalize understanding instructions and agreement with plan. Departure Impression Impression: Primary Impression: Dental caries Disposition: 01 HOME, SELF-CARE Condition: Improved Departure-Patient Inst. Decision time for Depature: 14:11 Referrals: AMELIA CURRIE DO (PCP) Primary Care Physician BHARAT MANCIA (Family) Primary Care Physician Patient Instructions: Dental Pain (DC), Tooth Decay, Adult (DC) Add. Discharge Instructions: All discharge instructions reviewed with patient and/or family. Voiced understanding. Take medications as directed. Follow-up with your dentist as soon as possible. Return for worse pain, fever, vomiting, weakness, breathing problems or other concerns as needed. Scripts Hydrocodone/Acetaminophen (Hydrocodon -Acetaminophen 5-325) 1 Each Tablet 1-2 EACH PO Q6H Y for PAIN-MODERATE, #15 TAB 0 Refills Prov: EVELINE PENG MD 06/20/17 Cephalexin (Cephalexin) 500 Mg Tablet 500 MG PO TID, #2020 TAB 0 Refills Prov: EVELINE PENG MD 06/20/17 Images Mouth/Nose 1 - Caries, Tenderness EVELINE PENG MD Jun 20, 2017 14:12
[2017-06-20] MEDS ORDERED: HYDR-3812 PO (14:13)
[2017-06-20] MEDS ORDERED: CEPH500T PO (14:13)
[2017-06-20] MEDS ORDERED: LIDOCAINE 2% VISCOUS 15 ML UDC PO ONE (14:15)
[2017-06-20 14:25] VITALS: BP 122/76
== END 2017-06-20 14:25 | disposition home or self-care (01) ==
LOC: EDUNIT# 13:31 → ER 13:33
DX: K02.9 Dental caries, unspecified (principal); I25.10 Atherosclerotic heart disease of native coronary artery without angina pectoris; I10 Essential (primary) hypertension; K21.9 Gastro-esophageal reflux disease without esophagitis; M06.9 Rheumatoid arthritis, unspecified; Z87.19 Personal history of other diseases of the digestive system; Z90.49 Acquired absence of other specified parts of digestive tract; Z95.1 Presence of aortocoronary bypass graft; Z98.51 Tubal ligation status; Z95.2 Presence of prosthetic heart valve; Z79.82 Long term (current) use of aspirin; Z79.01 Long term (current) use of anticoagulants
CPT/HCPCS: 99283

== ENCOUNTER 2017-07-29 20:35 | Emergency (ER) | payer MEDICARE, MEDICAID ==
[~2017-07-29] VITALS: Ht 149.9 cm; Wt 88.9 kg
[~2017-07-29 20:35] MED LIST changes: +CEPH500T PO; +HYDR-3812 PO
--- NOTE | 2017-07-29 21:21 | ED EENT ---
History of Present Illness General Chief Complaint: Dental Problems/Pain Stated Complaint: DENTAL PAIN Nursing Triage Note: PT STATES SHE HAS PAIN IN HER MOUTH FROM A BAD TOOTH THAT HAS BEEN THERE FOR DAYS. STATES SHE HAS SEEN A DENTIST BUT THEY ARE UNABLE TO DO ANYTHING UNTIL SHE HAS APPROVAL FROM HER MEDICAL DR BECAUSE OF HEART ISSUES. STATES SHE HAS BEEN TAKING IBUPROFEN, CEFTIN AND TOPICAL LIDOCAINE WITH NO RELEIF. Source: patient Exam Limitations: no limitations History of Present Illness Time seen by provider: 21:18 Initial Comments To ER with right lower jaw pain from a bad tooth that is been there for 3 days. On the of this month she was prescribed ibuprofen and CeFDINIR which she states are not helping. She is allergic to penicillins and she cannot take clindamycin as it causes her terrible diarrhea. Timing/Duration: gradual Severity: moderate Location: dental Associated Symptoms: denies symptoms Allergies and Home Medications Allergies Coded Allergies: Iodinated Contrast Media - Oral and (Verified Allergy, Unknown, 05/28/06) Penicillins (Verified Allergy, Unknown, 05/29/06) tramadol (Unverified Allergy, Unknown, 01/22/14) vancomycin (Verified Allergy, Unknown, 05/29/06) Home Medications Albuterol Sulfate 6.7 Gm Hfa.aer.ad, 2 PUFF IH Q6H PRN for SHORTNESS OF BREATH, (Reported) Aspirin 325 Mg Tab, 325 MG PO DAILY, Ref 0 (Reported) Cefprozil 250 Mg Tablet, 1 TAB PO BID for 10 Days, Ref 0 Prescribed by: OG FERNANDO on 05/14/141999 Cephalexin 500 Mg Tablet, 500 MG PO TID, #2021 Ref 0 Prescribed by: EVELINE PENG on 06/20/17 1413 Esomeprazole Mag Trihydrate 40 Mg Capsule.dr, 40 MG PO DAILY, (Reported) Furosemide 40 Mg Tablet, 40 MG PO DAILY, Ref 0 (Reported) Hydrocodone/Acetaminophen 1 Each Tablet, 1-2 EACH PO Q6H PRN for PAIN-MODERATE, #15 Ref 0 Prescribed by: EVELINE PENG on 06/20/17 1413 Metoprolol Succinate 25 Mg Tab.sr.24h, 25 MG PO DAILY, (Reported) Warfarin Sodium 3 Mg Tablet, 9 MG PO DAILY EXCEPT WOLFF/, (Reported) 12 mg on WOLFF-TU Warfarin Sodium 3 Mg Tablet, 12 MG PO ON SUN-TUES, (Reported) [Albuteral Inhaler] , NEEDED, (Reported) Review of Systems Constitutional: see HPI, No chills, No fever Eyes: No Symptoms Reported Ears: No Symptoms Reported Nose: no symptoms reported Mouth: pain Throat: no symptoms reported Respiratory: no symptoms reported Cardiovascular: no symptoms reported Gastrointestinal: no symptoms reported Musculoskeletal: no symptoms reported Past Sdoauwr-Tftqaw-Xijexu Hx Patient Social History Alcohol Use: Denies Use Recreational Drug Use: No Smoking Status: Former Smoker Type Used: Cigarettes Former Smoker, Quit: Jan 15, 1974 Recent Foreign Travel: No Contact w/Someone Who Travel: No Recent Infectious Disease Expo: No Recent Hopitalizations: No Immunizations Up To Date Tetanus Booster (TDap): Unknown Surgeries History of Surgeries: Yes Surgeries: Appendectomy, CABG, Tubal Ligation, Valve Replacement Respiratory History of Respiratory Disorde: Yes Respiratory Disorders: Asthma, Chronic Bronchitis, COPD Cardiovascular History of Cardiac Disorders: Yes Cardiac Disorders: Coronary Artery Disease, Hypertension, Valvular Heart Disease Neurological History of Neurological Disord: No Reproductive System Hx Reproductive Disorders: No Genitourinary Genitourinary Disorders: UTI-Chronic Gastrointestinal History of Gastrointestinal Di: Yes Gastrointestinal Disorders: Gastroesophageal Reflux, Hiatal Hernia Musculoskeletal History of Musculoskeletal Dis: Yes Musculoskeletal Disorders: Arthritis, Rheumatoid Arthritis Endocrine History of Endocrine Disorders: No Cancer History of Cancer: No Psychosocial History of Psychiatric Problem: No Integumentary History of Skin or Integumenta: No Blood Transfusions History of Blood Disorders: No Family Medical History Significant Family History: No Pertinent Family Hx Physical Exam Vital Signs Vital Sign - Last 12Hours 07/29/17 20:55 Temp 97.7 Pulse 82 Resp 16 B/P (MAP) 188/90 General Appearance: WD/WN, no apparent distress Eyes: bilateral eye normal inspection, bilateral eye PERRL, bilateral eye EOMI Ears: bilateral ear auricle normal, bilateral ear canal normal, bilateral ear TM normal Mouth/Throat: pharynx normal, dental tenderness (dental caries to the affected tooth. There is no fluctuant lingual or buccal abscess. No swelling.) Neck: non-tender, full range of motion Respiratory: no respiratory distress, no accessory muscle use Gastrointestinal: non tender, soft Neurologic/Psychiatric: alert, normal mood/affect, oriented x 3 Skin: normal color, warm/dry Progress/Results/Core Measures Results/Orders Vital Signs/I&O Vital Sign - Last 12Hours 07/29/17 20:55 Temp 97.7 Pulse 82 Resp 16 B/P (MAP) 188/90 Blood Pressure Mean: 122 Departure Impression Impression: Primary Impression: Dental caries Disposition: HOME, SELF-CARE Condition: Stable Departure-Patient Inst. Decision time for Depature: 21:20 Referrals: AMLEIA CURRIE DO (PCP) Primary Care Physician BHARAT MANCIA (Family) Primary Care Physician Patient Instructions: NO INSTRUCTIONS GIVEN Add. Discharge Instructions: 1. Follow-up with your dentist as soon as possible next week 2. Return to ER for any facial swelling or fevers 3. Continue your current ibuprofen and antibiotic All discharge instructions reviewed with patient and/or family. Voiced understanding. 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
[2017-07-29 21:30] VITALS: BP 188/90
[2017-07-29] MEDS ORDERED: RX-HYDROCODONE/APAP 5/325 MG #4 TAB PK PO PRN (21:30)
== END 2017-07-29 21:30 | disposition home or self-care (01) ==
LOC: EDUNIT# 20:35 → ER 20:36
DX: K02.9 Dental caries, unspecified (principal); M06.9 Rheumatoid arthritis, unspecified; K21.9 Gastro-esophageal reflux disease without esophagitis; I25.10 Atherosclerotic heart disease of native coronary artery without angina pectoris; I10 Essential (primary) hypertension; J44.9 Chronic obstructive pulmonary disease, unspecified; Z79.82 Long term (current) use of aspirin; Z79.01 Long term (current) use of anticoagulants; Z87.891 Personal history of nicotine dependence; Z98.51 Tubal ligation status; Z95.1 Presence of aortocoronary bypass graft; Z95.2 Presence of prosthetic heart valve; Z90.49 Acquired absence of other specified parts of digestive tract; Z87.440 Personal history of urinary (tract) infections
CPT/HCPCS: 99283

== ENCOUNTER 2018-01-22 10:42 | Emergency (ER) | payer MEDICARE, MEDICAID ==
[~2018-01-22] VITALS: Ht 152.4 cm; Wt 88.9 kg
[~2018-01-22 10:42] MED LIST changes: +ACHD5005 PO; -HYDR-3812 PO
--- OUTSIDE RECORDS SUMMARY | 2018-01-22 10:47 | XMS REPORT ---
Author Author OG AARON [facility] Address [address] [place] [address] Care Team Providers Care Instructional Services Librarian Name Role Phone OG AARON Unavailable PROBLEMS Type Condition ICD9-CM Code [id number] Code Onset Dates Condition Status SNOMED Code Problem senior care (current) use of anticoagulants Z79.01 Active 054802713 Problem Essential (primary) hypertension I10 Active 13175393 Problem Atherosclerotic heart disease of [place] coronary artery without angina pectoris I25.10 Active 912059223961637 Problem Thyroid nodule, cold E04.1 Active 132323215 Problem Hyperglycemia R73.9 Active 20705250 Problem COPD (chronic obstructive pulmonary disease) J44.9 Active 42210737 Problem Dental examination Z01.20 Active 284614639 Problem Essential hypertension I10 Active 80492132 Problem Heart valve disorder I38 Active 877313 Problem Breast cancer screening Z12.39 Active 270552050 Problem Hyperlipidemia, unspecified hyperlipidemia type E78.5 Active 81816819 Problem Aortic valve stenosis, unspecified etiology I35.0 Active 61729896 ALLERGIES Substance Reaction Event Type Date Status Singulair Unknown Drug Allergy Nov, Active Simvastatin Unknown Drug Allergy Nov, Active Penicillin V Potassium Unknown Drug Allergy Nov, Active Iodine Unknown Drug Allergy Nov, Active SOCIAL HISTORY Never Assessed PLAN OF CARE VITAL SIGNS Height 59 in 2016-11-24 Weight 197.4 lbs 2016-11-24 Temperature 97.4 degrees Fahrenheit 2016-11-24 Heart Rate 82 bpm 2016-11-24 Respiratory Rate 20 2016-11-24 BMI 39.87 kg/m2 2016-11-24 Blood pressure systolic 140 mmHg 2016-11-24 Blood pressure diastolic 78 mmHg 2016-11-24 MEDICATIONS Medication Instructions Dosage Frequency Start Date End Date Duration Status Warfarin Sodium 6 MG 1 tablet daily on M,T,TH,F,Sun and 1.5 Tablets on W, and Sat Active PredniSONE 20 mg Orally Once a day 1 tablet 24h 08 Nov, 2016 Nov, 05 days Active MetFORMIN HCl ER 500 MG Orally twice a day 2 tablet 12h Apr, Active Albuterol Sulfate (2.5 MG/3ML) 0.083% Inhalation 2 times a day 3 ml 12h 07 Dec, 2015 Active Hydrocodone-Acetaminophen 7.5-325 MG Orally Once a day 1 tablet as needed 24h 18 Aug, 2016 Active Nebulizer/Tubing/Mouthpiece ... as directed Dec, Active Nexium 40 mg Orally Once a day 1 capsule 24h Oct, 30 days Active ProAir HFA 108MCG/A INHALE TWO PUFFS BY MOUTH EVERY 6 HOURS NEEDED FOR SHORTNESS OF BREATH OR COUGH 25 Active Furosemide 40 MG 1 tablet by Oral route 1 time per day 90 Active Metoprolol Succinate ER 25 MG Orally Once a day 1 tablet 24h 30 Dec, 2015 90 Active Zyrtec Allergy 10 mg Orally Once a day as needed for congestion 1 capsule Aug, Active Promethazine-Codeine 6.25-10 MG/5ML Orally every 6 hrs 5 ml as needed 6h 16 Aug, 2016 Active RESULTS No Results PROCEDURES Procedure Date Ordered Result Body Site [facility] VISIT ESTABLISHED PATIENT Nov 24, 2016 IMMUNIZATIONS No Known Immunizations MEDICAL (GENERAL) HISTORY Type Description Date Medical History Severe aortic valve stenosis 05/2015 Medical History acid reflux Medical History COPD Medical History asthma Medical History Blood thinners Medical History Bronchitis Medical History Back trouble Medical History artritis Medical History heart murmur Medical History [place] carotid US 01/2017 WNL Surgical History heart surgery Surgical History appendectomy Surgical History tubal ligation Hospitalization History surgeries Hospitalization History childbirth x 4
--- OUTSIDE RECORDS SUMMARY | 2018-01-22 10:48 | XMS REPORT ---
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 Active 539284562 Problem Essential (primary) hypertension I10 Active 39417026 Problem Atherosclerotic heart disease of [place] coronary artery without angina pectoris I25.10 Active 907248184341538 Problem Thyroid nodule, cold E04.1 Active 148092093 Problem Hyperglycemia R73.9 Active 59065726 Problem COPD (chronic obstructive pulmonary disease) J44.9 Active 92194953 Problem Dental examination Z01.20 Active 649545471 Problem Essential hypertension I10 Active 29817415 Problem Heart valve disorder I38 Active 540834 Problem Breast cancer screening Z12.39 Active 986531041 Problem Hyperlipidemia, unspecified hyperlipidemia type E78.5 Active 73797197 Problem Aortic valve stenosis, unspecified etiology I35.0 Active 78571468 ALLERGIES No Information SOCIAL HISTORY Never Assessed PLAN OF CARE VITAL SIGNS MEDICATIONS Unknown Medications RESULTS No Results PROCEDURES Procedure Date Ordered Result Body Site LAB NOT BILLED BY [facility] Dec 08, 2016 PROTHROMBIN TIME Dec 08, 2016 VENIPUNCT, ROUTINE* Dec 08, 2016 IMMUNIZATIONS No Known Immunizations MEDICAL (GENERAL) [...]
--- OUTSIDE RECORDS SUMMARY | 2018-01-22 10:48 | XMS REPORT ---
Author Author OG AARON [facility] Address [address] [place] [address] Care Team Providers Care Recruitment Assistant Name Role Phone OG AARON Unavailable PROBLEMS Type Condition ICD9-CM Code [id number] Code Onset Dates Condition Status SNOMED Code Problem half-way (current) use of anticoagulants Z79.01 Active 117484270 Problem Essential (primary) hypertension I10 Active 94477492 Problem Atherosclerotic heart disease of [place] coronary artery without angina pectoris I25.10 Active 042962985287719 Problem Thyroid nodule, cold E04.1 Active 893568919 Problem Mixed stress and urge urinary incontinence N39.46 Active 550823745 Problem Hyperglycemia R73.9 Active 83660259 Problem COPD (chronic obstructive pulmonary disease) J44.9 Active 88457444 Problem Dental examination Z01.20 Active 203598291 Problem Essential hypertension I10 Active 24498914 Problem Heart valve disorder I38 Active 422792 Problem Breast cancer screening Z12.39 Active 776440911 Problem Hyperlipidemia, unspecified hyperlipidemia type E78.5 Active 79962950 Problem Aortic valve stenosis, unspecified etiology I35.0 Active 27644246 ALLERGIES Substance Reaction Event Type Date Status Singulair Unknown Drug Allergy February, Active Simvastatin Unknown Drug Allergy February, Active Penicillin V Potassium Unknown Drug Allergy February, Active Iodine Unknown Drug Allergy February, Active SOCIAL HISTORY Never Assessed PLAN OF CARE VITAL SIGNS Height 59 in 2017-02-23 Weight 190.6 lbs 2017-02-23 Temperature 97.4 degrees Fahrenheit 2017-02-23 Heart Rate 80 bpm 2017-02-23 Respiratory Rate 20 2017-02-23 BMI 38.49 kg/m2 2017-02-23 Blood pressure systolic 126 mmHg 2017-02-23 Blood pressure diastolic 76 mmHg 2017-02-23 MEDICATIONS Medication Instructions Dosage Frequency Start Date End Date Duration Status Furosemide 40MG TAKE ONE TABLET BY MOUTH ONCE DAILY 90 Active Metoprolol Succinate ER 25MG Orally Once a day 1 tablet 24h 90 Active Jc Wolf 100 mg Orally Three times a day 1 capsule as needed 8h February, Active Esomeprazole Magnesium 40MG TAKE ONE CAPSULE BY MOUTH ONCE DAILY 30 Active Ibuprofen 600 MG Orally every 6 hrs 1 tablet 6h Dec, 30 day(s) Active MetFORMIN HCl ER 500 MG Orally twice a day 2 tablet 12h Apr, Active Albuterol Sulfate (2.5 MG/3ML) 0.083% Inhalation 2 times a day 3 ml 12h Dec, Active Nebulizer/Tubing/Mouthpiece ... as directed Dec, Active PredniSONE 20 mg Orally Once a day 2 tablets 24h February, February, 05 days Active Warfarin Sodium 6 MG Orally Once a day 1.5 tablet daily on M,T,,,Tue and 1 Tablets on W, and Sat 24h 30 days Active ProAir HFA 108MCG/A INHALE TWO PUFFS BY MOUTH EVERY 6 HOURS NEEDED FOR SHORTNESS OF BREATH OR COUGH 25 Active RESULTS No Results PROCEDURES Procedure Date Ordered Result Body Site [facility] VISIT ESTABLISHED PATIENT February 23, 2017 IMMUNIZATIONS No Known Immunizations MEDICAL (GENERAL) HISTORY [...]
--- OUTSIDE RECORDS SUMMARY | 2018-01-22 10:48 | XMS REPORT ---
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 Z79.01 Active 565612391 Problem Essential (primary) hypertension I10 Active 92359281 Problem Atherosclerotic heart disease of [place] coronary artery without angina pectoris I25.10 Active 656510077973293 Problem Thyroid nodule, cold E04.1 Active 994087116 Problem Mixed stress and urge urinary incontinence N39.46 Active 603031220 Problem Hyperglycemia R73.9 Active 95366918 Problem COPD (chronic obstructive pulmonary disease) J44.9 Active 34509752 Problem Dental examination Z01.20 Active 705360805 Problem Essential hypertension I10 Active 89568818 Problem Heart valve disorder I38 Active 019551 Problem Breast cancer screening Z12.39 Active 263574361 Problem Hyperlipidemia, unspecified hyperlipidemia type E78.5 Active 43915201 Problem Aortic valve stenosis, unspecified etiology I35.0 Active 86275231 ALLERGIES No Information SOCIAL HISTORY Never Assessed PLAN OF CARE VITAL SIGNS MEDICATIONS Unknown Medications RESULTS No Results PROCEDURES No Known procedures IMMUNIZATIONS No Known Immunizations MEDICAL (GENERAL) HISTORY [...]
--- OUTSIDE RECORDS SUMMARY | 2018-01-22 10:49 | XMS REPORT ---
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 Active 291739113 Problem Essential (primary) hypertension I10 Active 34538992 Problem Atherosclerotic heart disease of [place] coronary artery without angina pectoris I25.10 Active 974824842076434 Problem Thyroid nodule, cold E04.1 Active 626054364 Problem Hyperglycemia R73.9 Active 35155172 Problem COPD (chronic obstructive pulmonary disease) J44.9 Active 17783626 Problem Dental examination Z01.20 Active 395888393 Problem Essential hypertension I10 Active 67532526 Problem Heart valve disorder I38 Active 414283 Problem Breast cancer screening Z12.39 Active 806325546 Problem Hyperlipidemia, unspecified hyperlipidemia type E78.5 Active 10120536 Problem Aortic valve stenosis, unspecified etiology I35.0 Active 94195170 ALLERGIES No Information SOCIAL HISTORY Never Assessed PLAN OF CARE VITAL SIGNS MEDICATIONS Medication Instructions Dosage Frequency Start Date End Date Duration Status Promethazine-Codeine 6.25-10 MG/5ML Orally every 6 hrs 5 ml as needed 6h 13 Dec, 2016 Dec, 10 days Active RESULTS No Results PROCEDURES No Known [...]
--- OUTSIDE RECORDS SUMMARY | 2018-01-22 10:49 | XMS REPORT ---
Author Author BHARAT MANCIA 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.01 Active 270347135 Problem Essential (primary) hypertension I10 Active 49221704 Problem Atherosclerotic heart disease of [place] coronary artery without angina pectoris I25.10 Active 582508497237979 Problem Thyroid nodule, cold E04.1 Active 791735524 Problem Mixed stress and urge urinary incontinence N39.46 Active 017347725 Problem Hyperglycemia R73.9 Active 05571007 Problem COPD (chronic obstructive pulmonary disease) J44.9 Active 25103778 Problem Dental examination Z01.20 Active 302114112 Problem Essential hypertension I10 Active 57073245 Problem Heart valve disorder I38 Active 106898 Problem Breast cancer screening Z12.39 Active 079715055 Problem Hyperlipidemia, unspecified hyperlipidemia type E78.5 Active 63042579 Problem Aortic valve stenosis, unspecified etiology I35.0 Active 23975511 ALLERGIES Substance Reaction Event Type Date Status Singulair Unknown Drug Allergy Jan, Active Simvastatin Unknown Drug Allergy Jan, Active Penicillin V Potassium Unknown Drug Allergy Jan, Active Iodine Unknown Drug Allergy Jan, Active SOCIAL HISTORY Never Assessed PLAN OF CARE Activity Details Follow Up prn Reason: VITAL SIGNS Height 59 in 2017-02-07 Weight 193 lbs 2017-02-07 Temperature 98.5 degrees Fahrenheit 2017-02-07 Heart Rate 82 bpm 2017-02-07 Respiratory Rate 18 2017-02-07 BMI 38.98 kg/m2 2017-02-07 Blood pressure systolic 118 mmHg 2017-02-07 Blood pressure diastolic 72 mmHg 2017-02-07 MEDICATIONS Medication Instructions Dosage Frequency Start Date End Date Duration Status Metoprolol Succinate ER 25MG Orally Once a day 1 tablet 24h 90 Active Albuterol Sulfate (2.5 MG/3ML) 0.083% Inhalation 2 times a day 3 ml 12h Dec, Active Esomeprazole Magnesium 40MG TAKE ONE CAPSULE BY MOUTH ONCE DAILY 30 Active Warfarin Sodium 6 MG Orally Once a day 1.5 tablet daily on M,T,TH,F,Sun and 1 Tablets on W, and Sat 24h 30 days Active Nebulizer/Tubing/Mouthpiece ... as directed Dec, Active Furosemide 40MG TAKE ONE TABLET BY MOUTH ONCE DAILY 90 Active MetFORMIN HCl ER 500 MG Orally twice a day 2 tablet 12h Apr, Active Ibuprofen 600 MG Orally every 6 hrs 1 tablet 6h Dec, 30 day(s) Active ProAir HFA 108MCG/A INHALE TWO PUFFS BY MOUTH EVERY 6 HOURS NEEDED FOR SHORTNESS OF BREATH OR COUGH 25 Active RESULTS Name Result Date Reference Range INR (IN HOUSE) 2017-02-07 INR 1.2 1.10 - 3.30 PREVIOUS INR 1.5 CURRENT COUMADIN DOSE see notes NEW COUMADIN DOSE Lot # [id number] Exp date 10/2017 INR (IN HOUSE) 2017-02-07 INR 1.2 1.10 - 3.30 PREVIOUS INR 1.5 CURRENT COUMADIN DOSE see notes NEW COUMADIN DOSE Lot # [id number] Exp date 10/2017 Xray : Foot, Right 3 views (IN HOUSE) 2017-02-07 PROCEDURES Procedure Date Ordered Result Body Site X-RAY EXAM OF FOOT February 07, 2017 PROTHROMBIN TIME February 07, 2017 [facility] EST[facility] PATIENT February 07, 2017 IMMUNIZATIONS No Known Immunizations MEDICAL (GENERAL) [...]
--- OUTSIDE RECORDS SUMMARY | 2018-01-22 10:49 | XMS REPORT ---
Author Author JAYME GUSTAFSON Organization [facility] Address [address] [place] [address] Care Team Providers Care Coil Tier Name Role Phone JAYME GUSTAFSON Unavailable PROBLEMS Type Condition ICD9-CM Code WMI65-[id number] Code Onset Dates Condition Status SNOMED Code Problem retirement (current) use of anticoagulants Z79.01 Active 619752312 Problem Essential (primary) hypertension I10 Active 46543303 Problem Atherosclerotic heart disease of [place] coronary artery without angina pectoris I25.10 Active 347654484853246 Problem Thyroid nodule, cold E04.1 Active 429993046 Problem Mixed stress and urge urinary incontinence N39.46 Active 498506830 Problem Hyperglycemia R73.9 Active 68230618 Problem COPD (chronic obstructive pulmonary disease) J44.9 Active 96263531 Problem Dental examination Z01.20 Active 214958715 Problem Essential hypertension I10 Active 24526648 Problem Heart valve disorder I38 Active 983547 Problem Breast cancer screening Z12.39 Active 098922163 Problem Hyperlipidemia, unspecified hyperlipidemia type E78.5 Active 97625347 Problem Aortic valve stenosis, unspecified etiology I35.0 Active 30995682 ALLERGIES Substance Reaction Event Type Date Status Singulair Unknown Drug Allergy Mar, Active Simvastatin Unknown Drug Allergy Mar, Active Penicillin V Potassium Unknown Drug Allergy Mar, Active Iodine Unknown Drug Allergy Mar, Active SOCIAL HISTORY Never Assessed PLAN OF CARE Activity Details Follow Up prn Reason: VITAL SIGNS Height 59 in 2017-03-18 Weight 188.2 lbs 2017-03-18 Temperature 98.5 degrees Fahrenheit 2017-03-18 Heart Rate 84 bpm 2017-03-18 Respiratory Rate 20 2017-03-18 BMI 38.01 kg/m2 2017-03-18 MEDICATIONS Medication Instructions Dosage Frequency Start Date End Date Duration Status ProAir HFA 108MCG/A INHALE TWO PUFFS BY MOUTH EVERY 6 HOURS NEEDED FOR SHORTNESS OF BREATH OR COUGH 25 Active Albuterol Sulfate (2.5 MG/3ML) 0.083% Inhalation 2 times a day 3 ml 12h Dec, Active Esomeprazole Magnesium 40MG TAKE ONE CAPSULE BY MOUTH ONCE DAILY 30 Active Nebulizer/Tubing/Mouthpiece ... as directed Dec, Active Zyrtec Allergy 10 MG Orally Once a day 1 tablet 24h Mar, Apr, 30 day(s) Active Tessalon Perles 100 mg Orally Three times a day 1 capsule as needed 8h February, Active Furosemide 40MG TAKE ONE TABLET BY MOUTH ONCE DAILY 90 Active MetFORMIN HCl ER 500 MG Orally twice a day 2 tablet 12h Apr, Active Warfarin Sodium 6 MG Orally Once a day 1.5 tablet daily on M,T,TH,F,Sun and 1 Tablets on W, and Sat 24h 30 days Active PredniSONE 20 MG Orally Once a day 2 tablet 24h Mar, Mar, 5 days Active Metoprolol Succinate ER 25MG Orally Once a day 1 tablet 24h 90 Active Ibuprofen 600 MG Orally every 6 hrs 1 tablet 6h Dec, 30 day(s) Active Flonase 50 MCG/ACT Nasally Once a day 1 spray in each nostril 24h Mar, 30 day(s) Active RESULTS No Results PROCEDURES Procedure Date Ordered Result Body Site [facility] VISIT ESTABLISHED PATIENT March 18, 2017 IMMUNIZATIONS No Known Immunizations MEDICAL (GENERAL) [...]
--- OUTSIDE RECORDS SUMMARY | 2018-01-22 10:50 | XMS REPORT ---
Author Author JAYME GUSTAFSON Organization [facility] Address [address] [place] [address] Care Team Providers Care Production Cook Name Role Phone JAYME GUSTAFSON Unavailable PROBLEMS Type Condition ICD9-CM Code [id number] Code Onset Dates Condition Status SNOMED Code Problem longterm (current) use of anticoagulants Z79.01 Active 589444638 Problem Essential (primary) hypertension I10 Active 40221609 Problem Atherosclerotic heart disease of [place] coronary artery without angina pectoris I25.10 Active 543072991800608 Problem Thyroid nodule, cold E04.1 Active 286584199 Problem Hyperglycemia R73.9 Active 44783940 Problem COPD (chronic obstructive pulmonary disease) J44.9 Active 76884427 Problem Dental examination Z01.20 Active 943964589 Problem Essential hypertension I10 Active 04374834 Problem Heart valve disorder I38 Active 214628 Problem Breast cancer screening Z12.39 Active 196254633 Problem Hyperlipidemia, unspecified hyperlipidemia type E78.5 Active 06224160 Problem Aortic valve stenosis, unspecified etiology I35.0 Active 61709599 ALLERGIES Substance Reaction Event Type Date Status Singulair Unknown Drug Allergy Dec, Active Simvastatin Unknown Drug Allergy Dec, Active Penicillin V Potassium Unknown Drug Allergy Dec, Active Iodine Unknown Drug Allergy Dec, Active SOCIAL HISTORY Never Assessed PLAN OF CARE Activity Details Follow Up prn Reason: VITAL SIGNS Height 59 in 2016-12-24 Weight 193.8 lbs 2016-12-24 Temperature 98.0 degrees Fahrenheit 2016-12-24 Heart Rate 70 bpm 2016-12-24 Respiratory Rate 20 2016-12-24 BMI 39.14 kg/m2 2016-12-24 Blood pressure systolic 128 mmHg 2016-12-24 Blood pressure diastolic 74 mmHg 2016-12-24 MEDICATIONS Medication Instructions Dosage Frequency Start Date End Date Duration Status Metoprolol Succinate ER 25 MG Orally Once a day 1 tablet 24h Dec, 90 Active Nexium 40 mg Orally Once a day 1 capsule 24h Oct, 30 days Active Albuterol Sulfate (2.5 MG/3ML) 0.083% Inhalation 2 times a day 3 ml 12h Dec, Active Furosemide 40MG TAKE ONE TABLET BY MOUTH ONCE DAILY 90 Active Nebulizer/Tubing/Mouthpiece ... as directed Dec, Active ProAir HFA 108MCG/A INHALE TWO PUFFS BY MOUTH EVERY 6 HOURS NEEDED FOR SHORTNESS OF BREATH OR COUGH 25 Active Warfarin Sodium 6 MG Orally Once a day 1.5 tablet daily on ,T,,,Tue and 1 Tablets on W, and Sat 24h 30 days Active Clindamycin HCl 150 MG Orally every 8 hrs 2 capsules 8h Dec, Dec, 7 days Active RESULTS No Results PROCEDURES Procedure Date Ordered Result Body Site [facility] VISIT ESTABLISHED PATIENT December 24, 2016 IMMUNIZATIONS No Known Immunizations MEDICAL [...]
--- OUTSIDE RECORDS SUMMARY | 2018-01-22 10:50 | XMS REPORT ---
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 Active 748005518 Problem Essential (primary) hypertension I10 Active 82794859 Problem Atherosclerotic heart disease of [place] coronary artery without angina pectoris I25.10 Active 258955845773289 Problem Thyroid nodule, cold E04.1 Active 322021861 Problem Hyperglycemia R73.9 Active 47438118 Problem COPD (chronic obstructive pulmonary disease) J44.9 Active 91779560 Problem Dental examination Z01.20 Active 303802523 Problem Essential hypertension I10 Active 31197547 Problem Heart valve disorder I38 Active 910364 Problem Breast cancer screening Z12.39 Active 489007959 Problem Hyperlipidemia, unspecified hyperlipidemia type E78.5 Active 46431719 Problem Aortic valve stenosis, unspecified etiology I35.0 Active 02788129 ALLERGIES No Information SOCIAL HISTORY Never Assessed [...]
--- OUTSIDE RECORDS SUMMARY | 2018-01-22 10:50 | XMS REPORT ---
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 Z79.01 Active 614480879 Problem Essential (primary) hypertension I10 Active 70098499 Problem Atherosclerotic heart disease of [place] coronary artery without angina pectoris I25.10 Active 869722275835572 Problem Thyroid nodule, cold E04.1 Active 425832410 Problem Hyperglycemia R73.9 Active 23434540 Problem COPD (chronic obstructive pulmonary disease) J44.9 Active 15131135 Problem Dental examination Z01.20 Active 666661621 Problem Essential hypertension I10 Active 65306594 Problem Heart valve disorder I38 Active 045331 Problem Breast cancer screening Z12.39 Active 996552603 Problem Hyperlipidemia, unspecified hyperlipidemia type E78.5 Active 04465867 Problem Aortic valve stenosis, unspecified etiology I35.0 Active 47911873 ALLERGIES No Information SOCIAL HISTORY Never Assessed [...]
--- OUTSIDE RECORDS SUMMARY | 2018-01-22 10:50 | XMS REPORT ---
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 Active 778763061 Problem Essential (primary) hypertension I10 Active 93197770 Problem Atherosclerotic heart disease of [place] coronary artery without angina pectoris I25.10 Active 004517234311252 Problem Thyroid nodule, cold E04.1 Active 611356652 Problem Hyperglycemia R73.9 Active 85080830 Problem COPD (chronic obstructive pulmonary disease) J44.9 Active 80631907 Problem Dental examination Z01.20 Active 527232280 Problem Essential hypertension I10 Active 92199157 Problem Heart valve disorder I38 Active 227749 Problem Breast cancer screening Z12.39 Active 995989177 Problem Hyperlipidemia, unspecified hyperlipidemia type E78.5 Active 62956720 Problem Aortic valve stenosis, unspecified etiology I35.0 Active 74725806 ALLERGIES Substance Reaction Event Type Date Status Singulair Unknown Drug Allergy Nov, Active Simvastatin Unknown Drug Allergy Nov, Active Penicillin V Potassium Unknown Drug Allergy Nov, Active Iodine Unknown Drug Allergy Nov, Active SOCIAL HISTORY Never Assessed PLAN OF CARE Activity Details Follow Up 3 Months Reason:heart problems. VITAL SIGNS Height 59 in 2016-12-02 Weight 198.4 lbs 2016-12-02 Temperature 98.4 degrees Fahrenheit 2016-12-02 Heart Rate 76 bpm 2016-12-02 Respiratory Rate 20 2016-12-02 BMI 40.07 kg/m2 2016-12-02 Blood pressure systolic 122 mmHg 2016-12-02 Blood pressure diastolic 72 mmHg 2016-12-02 MEDICATIONS Medication Instructions Dosage Frequency Start Date End Date Duration Status Albuterol Sulfate (2.5 MG/3ML) 0.083% Inhalation 2 times a day 3 ml 12h 07 Dec, 2015 Active Nexium 40 mg Orally Once a day 1 capsule 24h Oct, 30 days Active Nebulizer/Tubing/Mouthpiece ... as directed Dec, Active Warfarin Sodium 6 MG Orally Once a day 1.5 tablet daily on M,T,TH,F,Sun and 1 Tablets on W, and Sat 24h 30 days Active Metoprolol Succinate ER 25 MG Orally Once a day 1 tablet 24h Dec, 90 Active Promethazine-Codeine 6.25-10 MG/5ML Orally every 6 hrs 5 ml as needed 6h Aug, Active Zyrtec Allergy 10 mg Orally Once a day as needed for congestion 1 capsule Aug, Active Furosemide 40 MG 1 tablet by Oral route 1 time per day 90 Active ProAir HFA 108MCG/A INHALE TWO PUFFS BY MOUTH EVERY 6 HOURS NEEDED FOR SHORTNESS OF BREATH OR COUGH 25 Active RESULTS Name Result Date Reference Range A1C (IN HOUSE) 2016-12-02 A1C IN HOUSE 6.1 4.3 - 5.6 % Previous A1c 6.1 Lot [id number] Exp date 08/2018 INR (IN HOUSE) 2016-12-02 INR 1.1 1.10 - 3.30 PREVIOUS INR 3.3 CURRENT COUMADIN DOSE 6mg 5 days 1.5 2 days NEW COUMADIN DOSE Lot # [id number] Exp date 08/2017 PROCEDURES Procedure Date Ordered Result Body Site PROTHROMBIN TIME Dec 02, 2016 GLYCATED HEMOGLOBIN TEST Dec 02, 2016 [facility] VISIT ESTABLISHED PATIENT Dec 02, 2016 IMMUNIZATIONS No Known Immunizations MEDICAL (GENERAL) [...]
--- OUTSIDE RECORDS SUMMARY | 2018-01-22 11:00 | XMS REPORT | Continuity of Care Document ---
Author Author [facility] Address Unknown Phone Unavailable Allergies Active Description Code Type Severity Reaction Onset Reported/Identified Relationship to Patient Clinical Status Yes Iodinated Contrast Media - IV Dye [id number] Drug Allergy Unknown N/A 05/28 Yes Iodinated Contrast Media - Oral and [id number] Drug Allergy Unknown N/A 09/2006 Yes Iodinated Contrast- Oral and IV Dye [id number] Drug Allergy Unknown N/A 09/2006 Yes Penicillins [id number] Drug Allergy Unknown N/A 05/29/2006 Yes vancomycin [id number] Drug Allergy Unknown N/A 05/29/2006 Yes hydrocodone [...] Drug Allergy N/A N/A 02/09/2013 Yes tramadol [id number] Drug Allergy Unknown N/A 01/22/2014 Medications There is no data. Problems Date Dx Coded Attending Type Code [...] 2009 424.1 AORTIC STENOSIS 2009 V58.69 taking high- risk medication for a long time 2009 MAGDALENA EUCEDA MD 424.1 AORTIC STENOSIS 2009 MAGDALENA EUCEDA MD V58.69 taking high-risk medication for a long time 2009 424.1 AORTIC STENOSIS 2009 V58.69 taking high- risk medication for a long time 2009 424.1 AORTIC STENOSIS 2009 V58.69 taking high- risk medication for a long time 2009 424.1 AORTIC STENOSIS 2009 V58.69 taking high- risk medication for a long time 2009 424.1 AORTIC STENOSIS 2009 V58.69 taking high- risk medication for a long time 2009 424.1 AORTIC STENOSIS 2009 V58.69 taking high- risk medication for a long time 2009 424.1 AORTIC STENOSIS 2009 V58.69 taking high- risk medication for a long time 2009 424.1 AORTIC STENOSIS 2009 V58.69 taking high- risk medication for a long time 2009 424.1 AORTIC STENOSIS 2009 V58.69 taking high- risk medication for a long time 2009 FELIBERTO [...] EUCEDA MD V58.69 taking high-risk medication 2009 CURRIE DO, AMELIA K 424.1 AORTIC [...] high-risk medication for a long time 2009 CURIRE DO, AMELIA K 424.1 AORTIC STENOSIS 2009 CURRIE DO, AMELIA K V58.69 taking high-risk medication for a long time 2009 CURRIE DO, AMELIA K 424.1 AORTIC STENOSIS 2009 CURRIE DO, AMELIA K V58.69 taking high-risk medication for a long time 2009 CHARITY ED TECH, MARCI A 424.1 AORTIC STENOSIS 2009 CHARITY ED TECH, MARCI A V58.69 taking high-risk medication for a long time 2009 MADL ED TECH, JHONATAN L 424.1 AORTIC STENOSIS 2009 MADL ED TECH, JHONATAN L V58.69 taking high-risk medication for a long time 2009 424.1 AORTIC STENOSIS 2009 V58.69 taking high- risk medication for a long time 2009 CURRIE DO, AMELIA K 424.1 AORTIC STENOSIS 2009 CURRIE DO, AMELIA K V58.69 taking high-risk medication for a long time 2009 CURRIE DO, AMELIA K 424.1 AORTIC STENOSIS 2009 CURRIE DO, AMELIA K V58.69 taking high-risk medication for a long time 2009 MADL ED TECH, JHONATAN L 424.1 AORTIC STENOSIS 2009 MADL ED TECH, JHONATAN L V58.69 taking high-risk medication for a long time 2009 MADL ED TECH, JHONATAN L 424.1 AORTIC STENOSIS 2009 MADL ED TECH, JHONATAN L V58.69 taking high-risk medication for a long time 2009 MADL ED TECH, JHONATAN L 424.1 AORTIC STENOSIS 2009 MADL ED TECH, JHONATAN L V58.69 taking high-risk medication for a long time 2009 CURRIE DO, AMELIA K 424.1 AORTIC STENOSIS 2009 CURRIE DO, AMELIA K V58.69 taking high-risk medication for a long time 2009 MADL ED TECH, JHONATAN L 424.1 AORTIC STENOSIS 2009 MADL ED TECH, JHONATAN L V58.69 taking high-risk medication for a long time 2009 MADL ED TECH, JHONATAN L 424.1 AORTIC STENOSIS 2009 MADL ED TECH, JHONATAN L V58.69 taking high-risk medication for a long time 2009 MADL ED TECH, JHONATAN L 424.1 AORTIC STENOSIS 2009 MADL ED TECH, JHONATAN L V58.69 taking high-risk medication for a long time 2009 CURRIE DO, AMELIA K 424.1 AORTIC STENOSIS 2009 CURRIE DO, AMELIA K V58.69 taking high-risk medication for a long time 2009 MADL ED TECH, JHONATAN L 424.1 AORTIC STENOSIS 2009 MADL ED TECH, JHONATAN L V58.69 taking high-risk medication for a long time 2009 MADL ED TECH, JHONATAN L 424.1 AORTIC STENOSIS 2009 MADL ED TECH, JHONATAN L V58.69 taking high-risk medication for a long time 2009 MAVERICK ED TECH, ZACHARIAH R 424.1 AORTIC STENOSIS 2009 MAVERICK ED TECH, ZACHARIAH R V58.69 taking high-risk medication for a long time 2009 MADL ED TECH, JHONATAN L 424.1 AORTIC STENOSIS 2009 MADL ED TECH, JHONATAN L V58.69 taking high-risk medication for a long time 2009 MADL ED TECH, JHONATAN L 424.1 AORTIC STENOSIS 2009 MADL ED TECH, JHONATAN L V58.69 taking high-risk medication for a long time 2009 MADL ED TECH, JHONATAN L 424.1 AORTIC STENOSIS 2009 MADL ED TECH, JHONATAN L V58.69 taking high-risk medication for a long time 2009 MADL ED TECH, JHONATAN L 424.1 AORTIC STENOSIS 2009 MADL ED TECH, JHONATAN L V58.69 taking high-risk medication for a long time 2009 MADL ED TECH, JHONATAN L 424.1 AORTIC STENOSIS 2009 MADL ED TECH, JHONATAN L V58.69 taking high-risk medication for a long time 2009 MADL ED TECH, JHONATAN L 424.1 AORTIC STENOSIS 2009 MADL ED TECH, JHONATAN L V58.69 taking high-risk medication for a long time 2009 CURRIE DO, AMELIA K 424.1 AORTIC STENOSIS 2009 CURRIE DO, AMELIA K V58.69 taking high-risk medication for a long time 2009 MADL ED TECH, JHONATAN L 424.1 AORTIC STENOSIS 2009 MADL ED TECH, JHONATAN L V58.69 taking high-risk medication for a long time 2009 BLANCHE ED TECH, BHARAT S 424.1 AORTIC STENOSIS 2009 BLANCHE ED TECH, BHARAT S V58.69 taking high-risk medication for a long time 2009 424.1 AORTIC STENOSIS 2009 V58.69 taking high- risk medication for a long time 2009 MAVERICK ED TECH, ZACHARIAH R 424.1 AORTIC STENOSIS 2009 MAVERICK ED TECH, ZACHARIAH R V58.69 taking high-risk medication for a long time 2009 ALMONTE DDS, SAE 424.1 AORTIC STENOSIS 2009 ALMONTE DDS, SAE V58.69 taking high-risk medication for a long time 07/22/2009 OK CHAVIS, MAGDALENA 786.05 shortness of breath 07/22/2009 MAGDALENA EUCEDA MD 786.2 cough 07/22/2009 MAGDALENA EUCEDA MD 786.05 shortness of breath 07/22/2009 OK CHAVIS, MAGDALENA 786.2 cough 07/22/2009 MAGDALENA EUCEDA MD 786.05 shortness of breath 07/22/2009 OK CHAVIS, MAGDALENA 786.2 cough 07/22/2009 786.05 shortness of breath 07/22/2009 786.2 cough 07/22/2009 MAGDALNEA EUCEDA MD 786.05 shortness of breath 07/22/2009 [...] shortness of breath 07/22/2009 786.2 cough 07/22/2009 FELIBERTO GARCIA APRN A 786.05 shortness of breath 07/22/2009 JENNIFER GARCIA APRNYL A 786.2 cough 07/22/2009 MAGDALENA EUCEDA MD [...] DO, AMELIA K 786.2 COUGH 07/22/2009 CHARITY ED TECH, MARCI A 786.05 SHORTNESS OF BREATH 07/22/2009 CHARITY ED TECH, MARCI A 786.2 COUGH 07/22/2009 MADL ED TECH, JHONATAN L 786.05 SHORTNESS OF BREATH 07/22/2009 MADL ED TECH, JHONATAN L 786.2 COUGH 07/22/2009 786.05 SHORTNESS OF BREATH 07/22/2009 786.2 COUGH 07/22/2009 CURRIE DO, AMELIA K 786.05 SHORTNESS OF BREATH 07/22/2009 CURRIE DO, AMELIA K 786.2 COUGH 07/22/2009 CURRIE DO, AMELIA K 786.05 SHORTNESS OF BREATH 07/22/2009 CURRIE DO, AMELIA K 786.2 COUGH 07/22/2009 MADL ED TECH, JHONATAN L 786.05 SHORTNESS OF BREATH 07/22/2009 MADL ED TECH, JHONATAN L 786.2 COUGH 07/22/2009 MADL ED TECH, JHONATAN L 786.05 SHORTNESS OF BREATH 07/22/2009 MADL ED TECH, JHONATAN L 786.2 COUGH 07/22/2009 MADL ED TECH, JHONATAN L 786.05 SHORTNESS OF BREATH 07/22/2009 MADL ED TECH, JHONATAN L 786.2 COUGH 07/22/2009 CURRIE DO, AMELIA K 786.05 SHORTNESS OF BREATH 07/22/2009 CURRIE DO, AMELIA K 786.2 COUGH 07/22/2009 MADL ED TECH, JHONATAN L 786.05 SHORTNESS OF BREATH 07/22/2009 MADL ED TECH, JHONATAN L 786.2 COUGH 07/22/2009 MADL ED TECH, JHONATAN L 786.05 SHORTNESS OF BREATH 07/22/2009 MADL ED TECH, JHONATAN L 786.2 COUGH 07/22/2009 MADL ED TECH, JHONATAN L 786.05 SHORTNESS OF BREATH 07/22/2009 MADL ED TECH, JHONATAN L 786.2 COUGH 07/22/2009 CURRIE DO, AMELIA K 786.05 SHORTNESS OF BREATH 07/22/2009 CURRIE DO, AMELIA K 786.2 COUGH 07/22/2009 MADL ED TECH, JHONATAN L 786.05 SHORTNESS OF BREATH 07/22/2009 MADL ED TECH, JHONATAN L 786.2 COUGH 07/22/2009 MADL ED TECH, JHONATAN L 786.05 SHORTNESS OF BREATH 07/22/2009 MADL ED TECH, JHONATAN L 786.2 COUGH 07/22/2009 MAVERICK ED TECH, ZACHARIAH R 786.05 SHORTNESS OF BREATH 07/22/2009 MAVERICK ED TECH, ZACHARIAH R 786.2 COUGH 07/22/2009 MADL ED TECH, JHONATAN L 786.05 SHORTNESS OF BREATH 07/22/2009 MADL ED TECH, JHONATAN L 786.2 COUGH 07/22/2009 MADL ED TECH, JHONATAN L 786.05 SHORTNESS OF BREATH 07/22/2009 MADL ED TECH, JHONATAN L 786.2 COUGH 07/22/2009 MADL ED TECH, JHONATAN L 786.05 SHORTNESS OF BREATH 07/22/2009 MADL ED TECH, JHONATAN L 786.2 COUGH 07/22/2009 MADL ED TECH, JHONATAN L 786.05 SHORTNESS OF BREATH 07/22/2009 MADL ED TECH, JHONATAN L 786.2 COUGH 07/22/2009 MADL ED TECH, JHONATAN L 786.05 SHORTNESS OF BREATH 07/22/2009 MADL ED TECH, JHONATAN L 786.2 COUGH 07/22/2009 MADL ED TECH, JHONATAN L 786.05 SHORTNESS OF BREATH 07/22/2009 MADL ED TECH, JHONATAN L 786.2 COUGH 07/22/2009 CURRIE DO, AMELIA K 786.05 SHORTNESS OF BREATH 07/22/2009 CURRIE DO, AMELIA K 786.2 COUGH 07/22/2009 MADL ED TECH, JHONATAN L 786.05 SHORTNESS OF BREATH 07/22/2009 MADL ED TECH, JHONATAN L 786.2 COUGH 07/22/2009 BLANCHE ED TECH, BHARAT S 786.05 SHORTNESS OF BREATH 07/22/2009 BLANCHE ED TECH, BHARAT S 786.2 COUGH 07/22/2009 786.05 SHORTNESS OF BREATH 07/22/2009 786.2 COUGH 07/22/2009 MAVERICK ED TECH, ZACHARIAH R 786.05 SHORTNESS OF BREATH 07/22/2009 MAVERICK ED TECH, ZACHARIAH R 786.2 COUGH 07/22/2009 ALMONTE DDS, SAE 786.05 SHORTNESS OF BREATH 07/22/2009 ALMONTE DDS, SAE 786.2 COUGH 07/31/2009 OK CHAVIS, MAGDALENA V72.31 CIRCUIT WALKER EXAM, ROUTINE 07/31/2009 MAGDALENA EUCEDA MD V72.31 CIRCUIT WALKER EXAM, ROUTINE 07/31/2009 MAGDALENA EUCEDA MD V72.31 CIRCUIT WALKER EXAM, ROUTINE 07/31/2009 V72.31 CIRCUIT WALKER EXAM, ROUTINE 07/31/2009 MAGDALENA EUCEDA MD V72.31 CIRCUIT WALKER EXAM, ROUTINE 07/31/2009 V72.31 CIRCUIT WALKER EXAM, ROUTINE 07/31/2009 V72.31 CIRCUIT WALKER EXAM, ROUTINE 07/31/2009 V72.31 CIRCUIT WALKER EXAM, ROUTINE 07/31/2009 V72.31 CIRCUIT WALKER EXAM, ROUTINE 07/31/2009 V72.31 CIRCUIT WALKER EXAM, ROUTINE 07/31/2009 V72.31 CIRCUIT WALKER EXAM, ROUTINE 07/31/2009 V72.31 CIRCUIT WALKER EXAM, ROUTINE 07/31/2009 V72.31 CIRCUIT WALKER EXAM, ROUTINE 07/31/2009 FELIBERTO GARCIA APRN V72.31 CIRCUIT WALKER EXAM, ROUTINE 07/31/2009 MAGDALENA EUCEDA MD V72.31 CIRCUIT WALKER EXAM, ROUTINE 07/31/2009 MAGDALENA EUCEDA MD V72.31 CIRCUIT WALKER EXAM, ROUTINE 07/31/2009 ALLI HUNT MD V72.31 CIRCUIT WALKER EXAM, ROUTINE 07/31/2009 MAGDALENA EUCEDA MD V72.31 CIRCUIT WALKER EXAM, ROUTINE 07/31/2009 CURRIE DOAMELIA V72.31 CIRCUIT WALKER EXAM, ROUTINE 07/31/2009 CURRIE DO, AMELIA K V72.31 CIRCUIT WALKER EXAM, ROUTINE 07/31/2009 CURRIE DO, AMELIA K V72.31 CIRCUIT WALKER EXAM, ROUTINE 07/31/2009 CURRIE DO, AMELIA K V72.31 CIRCUIT WALKER EXAM, ROUTINE 07/31/2009 CURRIE DO, AMELIA K V72.31 CIRCUIT WALKER EXAM, ROUTINE 07/31/2009 CHARITY ED TECH, MARCI A V72.31 CIRCUIT WALKER EXAM, ROUTINE 07/31/2009 MADL ED TECH, JHONATAN L V72.31 CIRCUIT WALKER EXAM, ROUTINE 07/31/2009 V72.31 CIRCUIT WALKER EXAM, ROUTINE 07/31/2009 CURRIE DO, AMELIA K V72.31 CIRCUIT WALKER EXAM, ROUTINE 07/31/2009 CURRIE DO, AMELIA K V72.31 CIRCUIT WALKER EXAM, ROUTINE 07/31/2009 MADL ED TECH, JHONATAN L V72.31 CIRCUIT WALKER EXAM, ROUTINE 07/31/2009 MADL ED TECH, JHONATAN L V72.31 CIRCUIT WALKER EXAM, ROUTINE 07/31/2009 MADL ED TECH, JHONATAN L V72.31 CIRCUIT WALKER EXAM, ROUTINE 07/31/2009 CURRIE DO, AMELIA K V72.31 CIRCUIT WALKER EXAM, ROUTINE 07/31/2009 MADL ED TECH, JHONATAN L V72.31 CIRCUIT WALKER EXAM, ROUTINE 07/31/2009 MADL ED TECH, JHONATAN L V72.31 CIRCUIT WALKER EXAM, ROUTINE 07/31/2009 MADL ED TECH, JHONATAN L V72.31 CIRCUIT WALKER EXAM, ROUTINE 07/31/2009 CURRIE DO, AMELIA K V72.31 CIRCUIT WALKER EXAM, ROUTINE 07/31/2009 MADL ED TECH, JHONATAN L V72.31 CIRCUIT WALKER EXAM, ROUTINE 07/31/2009 MADL ED TECH, JHONATAN L V72.31 CIRCUIT WALKER EXAM, ROUTINE 07/31/2009 MAVERICK ED TECH, ZACHARIAH R V72.31 CIRCUIT WALKER EXAM, ROUTINE 07/31/2009 MADL ED TECH, JHONATAN L V72.31 CIRCUIT WALKER EXAM, ROUTINE 07/31/2009 MADL ED TECH, JHONATAN L V72.31 CIRCUIT WALKER EXAM, ROUTINE 07/31/2009 MADL ED TECH, JHONATAN L V72.31 CIRCUIT WALKER EXAM, ROUTINE 07/31/2009 MADL ED TECH, JHONATAN L V72.31 CIRCUIT WALKER EXAM, ROUTINE 07/31/2009 MADL ED TECH, JHONATAN L V72.31 CIRCUIT WALKER EXAM, ROUTINE 07/31/2009 MADL ED TECH, JHONATAN L V72.31 CIRCUIT WALKER EXAM, ROUTINE 07/31/2009 CURRIE DO, AMELIA K V72.31 CIRCUIT WALKER EXAM, ROUTINE 07/31/2009 MADL ED TECH, JHONATAN L V72.31 CIRCUIT WALKER EXAM, ROUTINE 07/31/2009 BLANCHE ED TECH, BHARAT S V72.31 CIRCUIT WALKER EXAM, ROUTINE 07/31/2009 V72.31 CIRCUIT WALKER EXAM, ROUTINE 07/31/2009 MAVERICK ED TECH, ZACHARIAH R V72.31 CIRCUIT WALKER EXAM, ROUTINE 07/31/2009 ALMONTE DDS, SAE V72.31 CIRCUIT WALKER EXAM, ROUTINE 10/15/2009 MAGDALENA EUCEDA MD 719.08 [...] Knee Swelling 10/15/2009 719.08 Knee Swelling 10/15/2009 RADHA FUCHS, FELIBERTO Gonsales 719.08 Knee Swelling 10/15/2009 MAGDALENA EUCEDA MD 719.08 Knee Swelling 10/15/2009 MAGDALENA EUCEDA MD 719.08 Knee Swelling 10/15/2009 MARILEE CHAVIS, ALLI Shirley 719.08 Knee Swelling 10/15/2009 MAGDALENA EUCEDA MD 719.08 Knee Swelling 10/15/2009 CURRIE DORICHAA K 719.08 KNEE SWELLING 10/15/2009 CURRIE DO AMELIA K 719.08 KNEE SWELLING 10/15/2009 CURRIE DO AMELIA K 719.08 KNEE SWELLING 10/15/2009 CURRIE DORICHAA K 719.08 KNEE SWELLING 10/15/2009 CURRIE DO AMELIA K 719.08 KNEE SWELLING 10/15/2009 CHARITY GUTIERREZN, MARCI A 719.08 KNEE SWELLING 10/15/2009 MADL ED TECH, JHONATAN L 719.08 KNEE SWELLING 10/15/2009 719.08 KNEE SWELLING 10/15/2009 CURRIE DO, AMELIA K 719.08 KNEE SWELLING 10/15/2009 CURRIE DO, AMELIA K 719.08 KNEE SWELLING 10/15/2009 MADL ED TECH, JHONATAN L 719.08 KNEE SWELLING 10/15/2009 MADL ED TECH, JHONATAN L 719.08 KNEE SWELLING 10/15/2009 MADL ED TECH, JHONATAN L 719.08 KNEE SWELLING 10/15/2009 CURRIE DO, AMELIA K 719.08 KNEE SWELLING 10/15/2009 MADL ED TECH, JHONATAN L 719.08 KNEE SWELLING 10/15/2009 MADL ED TECH, JHONATAN L 719.08 KNEE SWELLING 10/15/2009 [facility] ED TECH, JHONATAN L 719.08 KNEE SWELLING 10/15/2009 CURRIE DO, AMELIA K 719.08 KNEE SWELLING 10/15/2009 MADL ED TECH, JHONATAN L 719.08 KNEE SWELLING 10/15/2009 [facility] ED TECH, JHONATAN L 719.08 KNEE SWELLING 10/15/2009 MAVERICK ED TECH, ZACHARIAH R 719.08 KNEE SWELLING 10/15/[facility] JHON[facility] L 719.08 KNEE SWELLING 10/15/2009 [facility] ED TECH, JHONATAN L 719.08 KNEE SWELLING 10/15/2009 MADL ED TECH, JHONATAN L 719.08 KNEE SWELLING 10/15/2009 MADL ED TECH, JHONATAN L 719.08 KNEE SWELLING 10/15/2009 MADL ED TECH, JHONATAN L 719.08 KNEE SWELLING 10/15/2009 MADL ED TECH, JHONATAN L 719.08 KNEE SWELLING 10/15/2009 CURRIE DO, AMELIA K 719.08 KNEE SWELLING 10/15/2009 MADL ED TECH, JHONATAN L 719.08 KNEE SWELLING 10/15/2009 BLANCHE ED TECH, BHARAT S 719.08 KNEE SWELLING 10/15/2009 719.08 KNEE SWELLING 10/15/2009 MAVERICK FUCHS, ZACHARIAH Gregg 719.08 KNEE SWELLING 10/15/2009 SUZY GRANADOS, SAE 719.08 KNEE SWELLING 10/21/2009 MAGDALENA EUCEDA MD 719.46 PAIN IN JOINT, LOWER LEG 10/21/2009 MAGDALENA EUCEDA MD 719.46 PAIN IN JOINT, LOWER LEG 10/21/2009 MAGDALENA EUCEDA MD 719.46 PAIN IN JOINT, LOWER LEG 10/21/2009 719.46 PAIN IN JOINT , LOWER LEG 10/21/2009 MAGDALENA EUCEDA MD 719.46 PAIN IN JOINT, LOWER LEG 10/21/2009 719.46 PAIN IN JOINT , LOWER LEG 10/21/2009 719.46 PAIN IN JOINT , LOWER LEG 10/21/2009 719.46 PAIN IN JOINT , LOWER LEG 10/21/2009 719.46 PAIN IN JOINT , LOWER LEG 10/21/2009 719.46 PAIN IN JOINT , LOWER LEG 10/21/2009 719.46 PAIN IN JOINT , LOWER LEG 10/21/2009 719.46 PAIN IN JOINT , LOWER LEG 10/21/2009 719.46 PAIN IN JOINT , LOWER LEG 10/21/2009 FELIBERTO GARCIA APRN 719.46 PAIN IN JOINT, LOWER LEG 10/21/2009 MAGDALENA EUCEDA MD 719.46 PAIN IN JOINT, LOWER LEG 10/21/2009 MAGDALENA EUCEDA MD 719.46 PAIN IN JOINT, LOWER LEG 10/21/2009 MARILEE CHAVIS, ALLI Shirley 719.46 PAIN IN JOINT, LOWER LEG 10/21/2009 [...] PAIN IN JOINT, LOWER LEG 10/21/2009 MADL ED TECH, JHONATAN L 719.46 PAIN IN JOINT, LOWER LEG 10/21/2009 719.46 PAIN IN JOINT , LOWER LEG 10/21/2009 CURRIE DO, AMELIA K 719.46 PAIN IN JOINT, LOWER LEG 10/21/2009 CURRIE DO, AMELIA K 719.46 PAIN IN JOINT, LOWER LEG 10/21/2009 MADL ED TECH, JHONATAN L 719.46 PAIN IN JOINT, LOWER LEG 10/21/2009 MADL ED TECH, JHONATAN L 719.46 PAIN IN JOINT, LOWER LEG 10/21/2009 MADL ED TECH, JHONATAN L 719.46 PAIN IN JOINT, LOWER LEG 10/21/2009 CURRIE DO, AMELIA K 719.46 PAIN IN JOINT, LOWER LEG 10/21/2009 MADL ED TECH, JHONATAN L 719.46 PAIN IN JOINT, LOWER LEG 10/21/2009 MADL ED TECH, JHONATAN L 719.46 PAIN IN JOINT, LOWER LEG 10/21/2009 MADL ED TECH, JHONATAN L 719.46 PAIN IN JOINT, LOWER LEG 10/21/2009 CURRIE DO, AMELIA K 719.46 PAIN IN JOINT, LOWER LEG 10/21/2009 MADL ED TECH, JHONATAN L 719.46 PAIN IN JOINT, LOWER LEG 10/21/2009 MADL ED TECH, JHONATAN L 719.46 PAIN IN JOINT, LOWER LEG 10/21/2009 MAVERICK FUCHS, ZACHARIAH R 719.46 PAIN IN JOINT, LOWER LEG 10/21/2009 MADL ED TECH, JHONATAN L 719.46 PAIN IN JOINT, LOWER LEG 10/21/2009 MADL ED TECH, JHONATAN L 719.46 PAIN IN JOINT, LOWER LEG 10/21/2009 MADL ED TECH, JHONATAN L 719.46 PAIN IN JOINT, LOWER LEG 10/21/2009 MADL ED TECH, JHONATAN L 719.46 PAIN IN JOINT, LOWER LEG 10/21/2009 MADL ED TECH, JHONATAN L 719.46 PAIN IN JOINT, LOWER LEG 10/21/2009 MADL ED TECH, JHONATAN L 719.46 PAIN IN JOINT, LOWER LEG 10/21/2009 CURRIE DO, AMELIA K 719.46 PAIN IN JOINT, LOWER LEG 10/21/2009 XIOMARAJennifer ED TECH, JHONATAN L 719.46 PAIN IN JOINT, LOWER LEG 10/21/2009 BLANCHE FUCHS, BHARAT S 719.46 PAIN IN JOINT, LOWER LEG 10/21/2009 719.46 PAIN IN JOINT , LOWER LEG 10/21/2009 ZACHARIAH TEMPLE APRN R 719.46 PAIN IN JOINT, LOWER LEG 10/21/2009 SUZY GRANADOS, SAE 719.46 PAIN IN JOINT, LOWER LEG [...] 715.16 OSTEOARTHROSIS, LOCALIZED, PRIMARY, LOWER LEG 11/06/2009 ALLI HUNT MD 715.16 OSTEOARTHROSIS, LOCALIZED, PRIMARY, LOWER LEG 11/06/2009 OK CHAVIS, MAGDALENA 715.16 OSTEOARTHROSIS, LOCALIZED, PRIMARY, LOWER LEG 11/06/2009 CURRIE DO, AMELIA K 715.16 OSTEOARTHROSIS, LOCALIZED, PRIMARY, LOWER LEG 11/06/2009 CURRIE DO, AMELIA K 715.16 OSTEOARTHROSIS, LOCALIZED, PRIMARY, LOWER LEG 11/06/2009 CURRIE DO, AMELIA K 715.16 OSTEOARTHROSIS, LOCALIZED, PRIMARY, LOWER LEG 11/06/2009 CURRIE DO, AMELIA K 715.16 OSTEOARTHROSIS, LOCALIZED, PRIMARY, LOWER LEG 11/06/2009 CURRIE DO, AMELIA K 715.16 OSTEOARTHROSIS, LOCALIZED, PRIMARY, LOWER LEG 11/06/2009 MARCI NASH APRN 715.16 OSTEOARTHROSIS, LOCALIZED, PRIMARY, LOWER LEG 11/06/2009 MADL ED TECH, JHONATAN L 715.16 OSTEOARTHROSIS, LOCALIZED, PRIMARY, LOWER LEG 11/06/2009 715.16 OSTEOARTHROSIS, LOCALIZED, PRIMARY, LOWER LEG 11/06/2009 CURRIE DO, AMELIA K 715.16 OSTEOARTHROSIS, LOCALIZED, PRIMARY, LOWER LEG 11/06/2009 CURRIE DO, AMELIA K 715.16 OSTEOARTHROSIS, LOCALIZED, PRIMARY, LOWER LEG 11/06/2009 MADL ED TECH, JHONATAN L 715.16 OSTEOARTHROSIS, LOCALIZED, PRIMARY, LOWER LEG 11/06/2009 MADL ED TECH, JHONATAN L 715.16 OSTEOARTHROSIS, LOCALIZED, PRIMARY, LOWER LEG 11/06/2009 MADL ED TECH, JHONATAN L 715.16 OSTEOARTHROSIS, LOCALIZED, PRIMARY, LOWER LEG 11/06/2009 CURRIE DO, AMELIA K 715.16 OSTEOARTHROSIS, LOCALIZED, PRIMARY, LOWER LEG 11/06/2009 MADL ED TECH, JHONATAN L 715.16 OSTEOARTHROSIS, LOCALIZED, PRIMARY, LOWER LEG 11/06/2009 MADL ED TECH, JHONATAN L 715.16 OSTEOARTHROSIS, LOCALIZED, PRIMARY, LOWER LEG 11/06/2009 MADL ED TECH, JHONATAN L 715.16 OSTEOARTHROSIS, LOCALIZED, PRIMARY, LOWER LEG 11/06/2009 CURRIE DO, AMELIA K 715.16 OSTEOARTHROSIS, LOCALIZED, PRIMARY, LOWER LEG 11/06/2009 [facility] ED TECH, JHONATAN L 715.16 OSTEOARTHROSIS, LOCALIZED, PRIMARY, LOWER LEG 11/06/2009 [facility] ED TECH, JHONATAN L 715.16 OSTEOARTHROSIS, LOCALIZED, PRIMARY, LOWER LEG 11/06/2009 MAVERICK ED TECH, ZACHARIAH R 715.16 OSTEOARTHROSIS, LOCALIZED, PRIMARY, LOWER LEG 11/06/2009 [facility] ED TECH, JHONATAN L 715.16 OSTEOARTHROSIS, LOCALIZED, PRIMARY, LOWER LEG 11/06/2009 [facility] ED TECH, JHONATAN L 715.16 OSTEOARTHROSIS, LOCALIZED, PRIMARY, LOWER LEG 11/06/2009 [facility] ED TECH, JHONATAN L 715.16 OSTEOARTHROSIS, LOCALIZED, PRIMARY, LOWER LEG 11/06/2009 [facility] ED TECH, JHONATAN L 715.16 OSTEOARTHROSIS, LOCALIZED, PRIMARY, LOWER LEG 11/06/2009 [facility] ED TECH, JHONATAN L 715.16 OSTEOARTHROSIS, LOCALIZED, PRIMARY, LOWER LEG 11/06/2009 [facility] ED TECH, JHONATAN L 715.16 OSTEOARTHROSIS, LOCALIZED, PRIMARY, LOWER LEG 11/06/2009 ROSEY DO, AMELIA K 715.16 OSTEOARTHROSIS, LOCALIZED, PRIMARY, LOWER LEG 11/06/2009 [facility] ED TECH, JHONATAN L 715.16 OSTEOARTHROSIS, LOCALIZED, PRIMARY, LOWER LEG 11/06/2009 BLANCHE ED TECH, BHARAT S 715.16 OSTEOARTHROSIS, LOCALIZED, PRIMARY, LOWER LEG 11/06/2009 715.16 OSTEOARTHROSIS, LOCALIZED, PRIMARY, LOWER LEG 11/06/2009 MAVERICK ED TECH, ZACHARIAH R 715.16 OSTEOARTHROSIS, LOCALIZED, PRIMARY, LOWER LEG 11/06/2009 SAE ALMONTE DDS 715.16 OSTEOARTHROSIS, LOCALIZED, PRIMARY, LOWER LEG 11/25/2009 Ot 493.90 11/25/2009 Ot 530.81 11/25/2009 Ot 719.46 11/25/2009 Ot V43.3 11/25/2009 Ot V45.81 11/25/2009 Ot V57.1 12/03/2009 OK CHAVIS, MAGDALENA 491.21 OBSTRUCTIVE CHRONIC BRONCHITIS, WITH (ACUTE) EXACERBATION 12/03/2009 MAGDALENA EUCEDA MD 491.21 OBSTRUCTIVE CHRONIC BRONCHITIS, WITH (ACUTE) EXACERBATION 12/03/2009 MAGDALENA EUCEDA MD 491.21 OBSTRUCTIVE CHRONIC BRONCHITIS, WITH (ACUTE) EXACERBATION 12/03/2009 491.21 OBSTRUCTIVE CHRONIC BRONCHITIS, WITH (ACUTE) EXACERBATION 12/03/2009 MAGDALENA EUCEDA MD 491.21 OBSTRUCTIVE CHRONIC BRONCHITIS, WITH (ACUTE) EXACERBATION [...] WITH (ACUTE) EXACERBATION 12/03/2009 FELIBERTO GARCIA APRN 491.21 OBSTRUCTIVE CHRONIC BRONCHITIS, WITH (ACUTE) EXACERBATION 12/03/2009 MAGDALENA EUCEDA MD 491.21 OBSTRUCTIVE CHRONIC BRONCHITIS, WITH (ACUTE) EXACERBATION 12/03/2009 MAGDALENA EUCEDA MD 491.21 OBSTRUCTIVE CHRONIC BRONCHITIS, WITH (ACUTE) EXACERBATION 12/03/2009 ALLI HUNT MD 491.21 OBSTRUCTIVE CHRONIC BRONCHITIS, WITH (ACUTE) EXACERBATION 12/03/2009 MAGDALENA EUCEDA MD 491.21 OBSTRUCTIVE CHRONIC BRONCHITIS, WITH (ACUTE) EXACERBATION [...] OBSTRUCTIVE CHRONIC BRONCHITIS, WITH (ACUTE) EXACERBATION 12/03/2009 MARCI NASH APRN A 491.21 OBSTRUCTIVE CHRONIC BRONCHITIS, WITH (ACUTE) EXACERBATION 12/03/2009 [facility] ED TECH, JHONATAN L 491.21 OBSTRUCTIVE CHRONIC BRONCHITIS, WITH (ACUTE) EXACERBATION 12/03/2009 491.21 OBSTRUCTIVE CHRONIC BRONCHITIS, WITH (ACUTE) EXACERBATION 12/03/2009 CURRIE DO, AMELIA K 491.21 OBSTRUCTIVE CHRONIC BRONCHITIS, WITH (ACUTE) EXACERBATION 12/03/2009 CURRIE DO, AMELIA K 491.21 OBSTRUCTIVE CHRONIC BRONCHITIS, WITH (ACUTE) EXACERBATION 12/03/2009 [facility] ED TECH, JHONATAN L 491.21 OBSTRUCTIVE CHRONIC BRONCHITIS, WITH (ACUTE) EXACERBATION 12/03/2009 [facility] ED TECH, JHONATAN L 491.21 OBSTRUCTIVE CHRONIC BRONCHITIS, WITH (ACUTE) EXACERBATION 12/03/2009 [facility] ED TECH, JHONATAN L 491.21 OBSTRUCTIVE CHRONIC BRONCHITIS, WITH (ACUTE) EXACERBATION 12/03/2009 CURRIE DO, AMELIA K 491.21 OBSTRUCTIVE CHRONIC BRONCHITIS, WITH (ACUTE) EXACERBATION 12/03/2009 [facility] ED TECH, JHONATAN L 491.21 OBSTRUCTIVE CHRONIC BRONCHITIS, WITH (ACUTE) EXACERBATION 12/03/2009 [facility] ED TECH, JHONATAN L 491.21 OBSTRUCTIVE CHRONIC BRONCHITIS, WITH (ACUTE) EXACERBATION 12/03/2009 [facility] ED TECH, JHONATAN L 491.21 OBSTRUCTIVE CHRONIC BRONCHITIS, WITH (ACUTE) EXACERBATION 12/03/2009 CURRIE DO, AMELIA K 491.21 OBSTRUCTIVE CHRONIC BRONCHITIS, WITH (ACUTE) EXACERBATION 12/03/2009 [facility] ED TECH, JHONATAN L 491.21 OBSTRUCTIVE CHRONIC BRONCHITIS, WITH (ACUTE) EXACERBATION 12/03/2009 [facility] ED TECH, JHONATAN L 491.21 OBSTRUCTIVE CHRONIC BRONCHITIS, WITH (ACUTE) EXACERBATION 12/03/2009 MAVERICK ED TECH, ZACHARIAH R 491.21 OBSTRUCTIVE CHRONIC BRONCHITIS, WITH (ACUTE) EXACERBATION 12/03/2009 [facility] ED TECH, JHONATAN L 491.21 OBSTRUCTIVE CHRONIC BRONCHITIS, WITH (ACUTE) EXACERBATION 12/03/2009 [facility] ED TECH, JHONATAN L 491.21 OBSTRUCTIVE CHRONIC BRONCHITIS, WITH (ACUTE) EXACERBATION 12/03/2009 [facility] ED TECH, JHONATAN L 491.21 OBSTRUCTIVE CHRONIC BRONCHITIS, WITH (ACUTE) EXACERBATION 12/03/2009 [facility] ED TECH, JHONATAN L 491.21 OBSTRUCTIVE CHRONIC BRONCHITIS, WITH (ACUTE) EXACERBATION 12/03/2009 [facility] ED TECH, JHONATAN L 491.21 OBSTRUCTIVE CHRONIC BRONCHITIS, WITH (ACUTE) EXACERBATION 12/03/2009 [facility] ED TECH, JHONATAN L 491.21 OBSTRUCTIVE CHRONIC BRONCHITIS, WITH (ACUTE) EXACERBATION 12/03/2009 AMELIA CURRIE DO 491.21 OBSTRUCTIVE CHRONIC BRONCHITIS, WITH (ACUTE) EXACERBATION 12/03/2009 MADL ED TECH, JHONATAN L 491.21 OBSTRUCTIVE CHRONIC BRONCHITIS, WITH (ACUTE) EXACERBATION 12/03/2009 BLANCHE ED TECH, BHARAT S 491.21 OBSTRUCTIVE CHRONIC BRONCHITIS, WITH (ACUTE) EXACERBATION 12/03/2009 491.21 OBSTRUCTIVE CHRONIC BRONCHITIS, WITH (ACUTE) EXACERBATION 12/03/2009 MAVERICK ED TECH, ZACHARIAH R 491.21 OBSTRUCTIVE CHRONIC BRONCHITIS, WITH (ACUTE) EXACERBATION 12/03/2009 ALMONTE DDS, SAE 491.21 OBSTRUCTIVE CHRONIC BRONCHITIS, WITH (ACUTE) EXACERBATION 01/01/2010 MAGDALENA EUCEDA MD 477.9 ALLERGIC [...] 01/01/2010 MAGDALENA EUCEDA MD7.9 ALLERGIC RHINITIS 01/01/2010 MAGDALENA EUCEDA MD 477.9 ALLERGIC RHINITIS 01/01/2010 MARILEE CHAVIS, ALLI Shirley 477.9 ALLERGIC RHINITIS 01/01/2010 MAGDALENA EUCEDA MD 477.9 ALLERGIC RHINITIS, CAUSE UNSPECIFIED 01/01/2010 CURRIE DO, AMELIA K 477.9 ALLERGIC RHINITIS 01/01/2010 CURRIE DO, AMELIA K 477.9 ALLERGIC RHINITIS 01/01/2010 CURRIE DO, AMELIA K 477.9 ALLERGIC RHINITIS 01/01/2010 CURRIE DO, AMELIA K 477.9 ALLERGIC RHINITIS 01/01/2010 CURRIE DO, AMELIA K 477.9 ALLERGIC RHINITIS 01/01/2010 CHARITY ED TECH, MARCI A 477.9 ALLERGIC RHINITIS 01/01/2010 MADL ED TECH, JHONATAN L 477.9 ALLERGIC RHINITIS 01/01/2010 477.9 ALLERGIC RHINITIS 01/01/2010 CURRIE DO, AMELIA K 477.9 ALLERGIC RHINITIS 01/01/2010 CURRIE DO, AMELIA K 477.9 ALLERGIC RHINITIS 01/01/2010 MADL ED TECH, JHONATAN L 477.9 ALLERGIC RHINITIS 01/01/2010 MADL ED TECH, JHONATAN L 477.9 ALLERGIC RHINITIS 01/01/2010 MADL ED TECH, JHONATAN L 477.9 ALLERGIC RHINITIS 01/01/2010 CURRIE DO, AMELIA K 477.9 ALLERGIC RHINITIS 01/01/2010 MADL ED TECH, JHONATAN L 477.9 ALLERGIC RHINITIS 01/01/2010 MADL ED TECH, JHONATAN L 477.9 ALLERGIC RHINITIS 01/01/2010 MADL ED TECH, JHONATAN L 477.9 ALLERGIC RHINITIS 01/01/2010 CURRIE DO, AMELIA K 477.9 ALLERGIC RHINITIS 01/01/2010 MADL ED TECH, JHONATAN L 477.9 ALLERGIC RHINITIS 01/01/2010 MADL ED TECH, JHONATAN L 477.9 ALLERGIC RHINITIS 01/01/2010 MAVERICK ED TECH, ZACHARIAH R 477.9 ALLERGIC RHINITIS 01/01/2010 MADL ED TECH, JHONATAN L 477.9 ALLERGIC RHINITIS 01/01/2010 MADL ED TECH, JHONATAN L 477.9 ALLERGIC RHINITIS 01/01/2010 MADL ED TECH, JHONATAN L 477.9 ALLERGIC RHINITIS 01/01/2010 MADL ED TECH, JHONATAN L 477.9 ALLERGIC RHINITIS 01/01/2010 MADL ED TECH, JHONATAN L 477.9 ALLERGIC RHINITIS 01/01/2010 MADL ED TECH, JHONATAN L 477.9 ALLERGIC RHINITIS 01/01/2010 CURRIE DO, AMELIA K 477.9 ALLERGIC RHINITIS 01/01/2010 MADL ED TECH, JHONATAN L 477.9 ALLERGIC RHINITIS 01/01/2010 BLANCHE ED TECH, BHARAT S 477.9 ALLERGIC RHINITIS 01/01/2010 477.9 ALLERGIC RHINITIS 01/01/2010 MAVERICK ED TECH, ZACHARIAH R 477.9 ALLERGIC RHINITIS 01/01/2010 ALMONTE [...] 611.72 LUMP OR MASS IN BREAST 01/27/2010 FELIBERTO GARCIA APRN A 611.72 LUMP OR MASS IN BREAST 01/27/2010 MAGDALENA EUCEDA MD 611.72 LUMP OR MASS IN BREAST 01/27/2010 MAGDALENA EUCEDA MD 611.72 LUMP OR MASS IN BREAST 01/27/2010 MARILEE CHAVIS, ALLI Shirley 611.72 LUMP OR MASS IN BREAST 01/27/2010 [...] LUMP OR MASS IN BREAST 01/27/2010 CHARITY ED TECH, MARCI A 611.72 LUMP OR MASS IN BREAST 01/27/2010 MADL ED TECH, JHONATAN L 611.72 LUMP OR MASS IN BREAST 01/27/2010 611.72 LUMP OR MASS IN BREAST 01/27/2010 CURRIE DO, AMELIA K 611.72 LUMP OR MASS IN BREAST 01/27/2010 CURRIE DO, AMELIA K 611.72 LUMP OR MASS IN BREAST 01/27/2010 MADL ED TECH, JHONATAN L 611.72 LUMP OR MASS IN BREAST 01/27/2010 MADL ED TECH, JHONATAN L 611.72 LUMP OR MASS IN BREAST 01/27/2010 MADL ED TECH, JHONATAN L 611.72 LUMP OR MASS IN BREAST 01/27/2010 CURRIE DO, AMELIA K 611.72 LUMP OR MASS IN BREAST 01/27/2010 MADL ED TECH, JHONATAN L 611.72 LUMP OR MASS IN BREAST 01/27/2010 MADL ED TECH, JHONATAN L 611.72 LUMP OR MASS IN BREAST 01/27/2010 MADL ED TECH, JHONATAN L 611.72 LUMP OR MASS IN BREAST 01/27/2010 CURRIE DO, AMELIA K 611.72 LUMP OR MASS IN BREAST 01/27/2010 MADL ED TECH, JHONATAN L 611.72 LUMP OR MASS IN BREAST 01/27/2010 MADL ED TECH, JHONATAN L 611.72 LUMP OR MASS IN BREAST 01/27/2010 MAVERICK ED TECH, ZACHARIAH R 611.72 LUMP OR MASS IN BREAST 01/27/2010 MADL ED TECH, JHONATAN L 611.72 LUMP OR MASS IN BREAST 01/27/2010 MADL ED TECH, JHONATAN L 611.72 LUMP OR MASS IN BREAST 01/27/2010 MADL ED TECH, JHONATAN L 611.72 LUMP OR MASS IN BREAST 01/27/2010 MADL ED TECH, JHONATAN L 611.72 LUMP OR MASS IN BREAST 01/27/2010 MADL ED TECH, JHONATAN L 611.72 LUMP OR MASS IN BREAST 01/27/2010 MADL ED TECH, JHONATAN L 611.72 LUMP OR MASS IN BREAST 01/27/2010 CURRIE DO, AMELIA K 611.72 LUMP OR MASS IN BREAST 01/27/2010 MADL ED TECH, JHONATAN L 611.72 LUMP OR MASS IN BREAST 01/27/2010 BLANCHE ED TECH, BHARAT S 611.72 LUMP OR MASS IN BREAST 01/27/2010 611.72 LUMP OR MASS IN BREAST 01/27/2010 MAVERICK ED TECH, ZACHARIAH R 611.72 LUMP OR MASS IN [...] 05/13/2010 788.41 urinary frequency increased 05/13/2010 RAJOTTE ED TECH, FELIBERTO A 724.5 BACKACHE 05/13/2010 RAJOTTE ED TECH, FELIBERTO A 788.41 urinary frequency increased 05/13/2010 [...] K 788.41 URINARY FREQUENCY INCREASED 05/13/2010 CHARITY ED TECH, MARCI A 724.5 BACKACHE 05/13/2010 CHARITY ED TECH, MARCI A 788.41 URINARY FREQUENCY INCREASED 05/13/2010 MADL ED TECH, JHONATAN L 724.5 BACKACHE 05/13/2010 MADL ED TECH, JHONATAN L 788.41 URINARY FREQUENCY INCREASED 05/13/2010 724.5 BACKACHE 05/13/2010 788.41 URINARY FREQUENCY INCREASED 05/13/2010 CURRIE DO, AMELIA K 724.5 BACKACHE 05/13/2010 CURRIE DO, AMELIA K 788.41 URINARY FREQUENCY INCREASED 05/13/2010 CURRIE DO, AMELIA K 724.5 BACKACHE 05/13/2010 CURRIE DO, AMELIA K 788.41 URINARY FREQUENCY INCREASED 05/13/2010 MADL ED TECH, JHONATAN L 724.5 BACKACHE 05/13/2010 MADL ED TECH, JHONATAN L 788.41 URINARY FREQUENCY INCREASED 05/13/2010 MADL ED TECH, JHONATAN L 724.5 BACKACHE 05/13/2010 MADL ED TECH, JHONATAN L 788.41 URINARY FREQUENCY INCREASED 05/13/2010 MADL ED TECH, JHONATAN L 724.5 BACKACHE 05/13/2010 MADL ED TECH, HJONATAN L 788.41 URINARY FREQUENCY INCREASED 05/13/2010 CURRIE DO, AMELIA K 724.5 BACKACHE 05/13/2010 CURRIE DO, AMELIA K 788.41 URINARY FREQUENCY INCREASED 05/13/2010 MADL ED TECH, JHONATAN L 724.5 BACKACHE 05/13/2010 MADL ED TECH, JHONATAN L 788.41 URINARY FREQUENCY INCREASED 05/13/2010 MADL ED TECH, JHONATAN L 724.5 BACKACHE 05/13/2010 MADL ED TECH, JHONATAN L 788.41 URINARY FREQUENCY INCREASED 05/13/2010 MADL ED TECH, JHONATAN L 724.5 BACKACHE 05/13/2010 MADL ED TECH, JHONATAN L 788.41 URINARY FREQUENCY INCREASED 05/13/2010 CURRIE DO, AMELIA K 724.5 BACKACHE 05/13/2010 CURRIE DO, AMELIA K 788.41 URINARY FREQUENCY INCREASED 05/13/2010 MADL ED TECH, JHONATAN L 724.5 BACKACHE 05/13/2010 MADL ED TECH, JHONATAN L 788.41 URINARY FREQUENCY INCREASED 05/13/2010 MADL ED TECH, JHONATAN L 724.5 BACKACHE 05/13/2010 MADL ED TECH, JHONATAN L 788.41 URINARY FREQUENCY INCREASED 05/13/2010 MAVERICK ED TECH, ZACHARIAH R 724.5 BACKACHE 05/13/2010 MAVERICK ED TECH, ZACHARIAH R 788.41 URINARY FREQUENCY INCREASED 05/13/2010 MADL ED TECH, JHONATAN L 724.5 BACKACHE 05/13/2010 MADL ED TECH, JHONATAN L 788.41 URINARY FREQUENCY INCREASED 05/13/2010 MADL ED TECH, JHONATAN L 724.5 BACKACHE 05/13/2010 MADL ED TECH, JHONATAN L 788.41 URINARY FREQUENCY INCREASED 05/13/2010 MADL ED TECH, JHONATAN L 724.5 BACKACHE 05/13/2010 MADL ED TECH, JHONATAN L 788.41 URINARY FREQUENCY INCREASED 05/13/2010 MADL ED TECH, JHONATAN L 724.5 BACKACHE 05/13/2010 MADL ED TECH, JHONATAN L 788.41 URINARY FREQUENCY INCREASED 05/13/2010 MADL ED TECH, JHONATAN L 724.5 BACKACHE 05/13/2010 MADL ED TECH, JHONATAN L 788.41 URINARY FREQUENCY INCREASED 05/13/2010 MADL ED TECH, JHONATAN L 724.5 BACKACHE 05/13/2010 MADL ED TECH, JHONATAN L 788.41 URINARY FREQUENCY INCREASED 05/13/2010 CURRIE DO, AMELIA K 724.5 BACKACHE 05/13/2010 CURRIE DO, AMELIA K 788.41 URINARY FREQUENCY INCREASED 05/13/2010 MADL ED TECH, JHONATAN L 724.5 BACKACHE 05/13/2010 MADL ED TECH, JHONATAN L 788.41 URINARY FREQUENCY INCREASED 05/13/2010 BLANCHE ED TECH, BHARAT S 724.5 BACKACHE 05/13/2010 BLANCHE ED TECH, BHARAT S 788.41 URINARY FREQUENCY INCREASED 05/13/2010 724.5 BACKACHE 05/13/2010 788.41 URINARY FREQUENCY INCREASED 05/13/2010 MAVERICK ED TECH, ZACHARIAH R 724.5 BACKACHE 05/13/2010 MAVERICK ED TECH, ZACHARIAH R 788.41 URINARY FREQUENCY INCREASED 05/13/2010 SAE ALMONTE DDS 724.5 BACKACHE 05/13/2010 SUZY DDS, SAE 788.41 URINARY FREQUENCY INCREASED 05/22/2010 MAGDALENA EUCEDA MD 558.9 GASTROENTERITIS NONINFECTIOUS 05/22/2010 MAGDALENA EUCEDA MD 917.7 FOREIGN BODY-SUPERFICIAL 05/22/2010 MAGDALENA EUCEDA MD 558.9 GASTROENTERITIS NONINFECTIOUS 05/22/2010 MAGDALENA EUCEDA MD 917.7 FOREIGN BODY-SUPERFICIAL 05/22/2010 MAGDALENA EUCEDA MD 558.9 GASTROENTERITIS NONINFECTIOUS 05/22/2010 MAGDALENA EUCEDA MD 917.7 FOREIGN BODY-SUPERFICIAL 05/22/2010 558.9 GASTROENTERITIS NONINFECTIOUS 05/22/2010 917.7 FOREIGN BODY- SUPERFICIAL 05/22/2010 MAGDALENA EUCEDA MD 558.9 GASTROENTERITIS NONINFECTIOUS 05/22/2010 MAGDALENA EUCEDA MD 917.7 FOREIGN BODY-SUPERFICIAL 05/22/2010 558.9 GASTROENTERITIS NONINFECTIOUS 05/22/2010 917.7 FOREIGN BODY- SUPERFICIAL 05/22/2010 558.9 GASTROENTERITIS NONINFECTIOUS 05/22/2010 917.7 FOREIGN BODY- SUPERFICIAL 05/22/2010 558.9 GASTROENTERITIS NONINFECTIOUS 05/22/2010 917.7 FOREIGN BODY- SUPERFICIAL 05/22/2010 558.9 GASTROENTERITIS NONINFECTIOUS 05/22/2010 917.7 FOREIGN BODY- SUPERFICIAL 05/22/2010 558.9 GASTROENTERITIS NONINFECTIOUS 05/22/2010 917.7 FOREIGN BODY- SUPERFICIAL 05/22/2010 558.9 GASTROENTERITIS NONINFECTIOUS 05/22/2010 917.7 FOREIGN BODY- SUPERFICIAL 05/22/2010 558.9 GASTROENTERITIS NONINFECTIOUS 05/22/2010 917.7 FOREIGN BODY- SUPERFICIAL 05/22/2010 558.9 GASTROENTERITIS NONINFECTIOUS 05/22/2010 917.7 FOREIGN BODY- SUPERFICIAL 05/22/2010 FELIBERTO GARCIA APRN 558.9 GASTROENTERITIS NONINFECTIOUS 05/22/2010 FELIBERTO GARCIA APRN 917.7 FOREIGN BODY-SUPERFICIAL 05/22/2010 MAGDALENA EUCEDA MD 558.9 GASTROENTERITIS NONINFECTIOUS 05/22/2010 MAGDALENA EUCEDA MD 917.7 FOREIGN BODY-SUPERFICIAL 05/22/2010 HUERTER MD, MAGDALENA 558.9 GASTROENTERITIS NONINFECTIOUS 05/22/2010 MAGDALENA EUCEDA [...] AMELIA K 917.7 FOREIGN BODY-SUPERFICIAL 05/22/2010 CHARITY ED TECH, MARCI A 558.9 GASTROENTERITIS NONINFECTIOUS 05/22/2010 CHARITY ED TECH, MARCI A 917.7 FOREIGN BODY-SUPERFICIAL 05/22/2010 MADL ED TECH, JHONATAN L 558.9 GASTROENTERITIS NONINFECTIOUS 05/22/2010 MADL ED TECH, JHONATAN L 917.7 FOREIGN BODY-SUPERFICIAL 05/22/2010 558.9 GASTROENTERITIS NONINFECTIOUS 05/22/2010 917.7 FOREIGN BODY- SUPERFICIAL 05/22/2010 CURRIE DO, AMELIA K 558.9 GASTROENTERITIS NONINFECTIOUS 05/22/2010 CURRIE DO, AMELIA K 917.7 FOREIGN BODY-SUPERFICIAL 05/22/2010 CURRIE DO, AMELIA K 558.9 GASTROENTERITIS NONINFECTIOUS 05/22/2010 CURRIE DO, AMELIA K 917.7 FOREIGN BODY-SUPERFICIAL 05/22/2010 MADL ED TECH, JHONATAN L 558.9 GASTROENTERITIS NONINFECTIOUS 05/22/2010 MADL ED TECH, JHONATAN L 917.7 FOREIGN BODY-SUPERFICIAL 05/22/2010 MADL ED TECH, JHONATAN L 558.9 GASTROENTERITIS NONINFECTIOUS 05/22/2010 MADL ED TECH, JHONATAN L 917.7 FOREIGN BODY-SUPERFICIAL 05/22/2010 MADL ED TECH, JHONATAN L 558.9 GASTROENTERITIS NONINFECTIOUS 05/22/2010 MADL ED TECH, JHONATAN L 917.7 FOREIGN BODY-SUPERFICIAL 05/22/2010 CURRIE DO, AMELIA K 558.9 GASTROENTERITIS NONINFECTIOUS 05/22/2010 CURRIE DO, AMELIA K 917.7 FOREIGN BODY-SUPERFICIAL 05/22/2010 MADL ED TECH, JHONATAN L 558.9 GASTROENTERITIS NONINFECTIOUS 05/22/2010 MADL ED TECH, JHONATAN L 917.7 FOREIGN BODY-SUPERFICIAL 05/22/2010 MADL ED TECH, JHONATAN L 558.9 GASTROENTERITIS NONINFECTIOUS 05/22/2010 MADL ED TECH, JHONATAN L 917.7 FOREIGN BODY-SUPERFICIAL 05/22/2010 MADL ED TECH, JHONATAN L 558.9 GASTROENTERITIS NONINFECTIOUS 05/22/2010 MADL ED TECH, JHONATAN L 917.7 FOREIGN BODY-SUPERFICIAL 05/22/2010 CURRIE DO, AMELIA K 558.9 GASTROENTERITIS NONINFECTIOUS 05/22/2010 CURRIE DO, AMELIA K 917.7 FOREIGN BODY-SUPERFICIAL 05/22/2010 MADL ED TECH, JHONATAN L 558.9 GASTROENTERITIS NONINFECTIOUS 05/22/2010 MADL ED TECH, JHONATAN L 917.7 FOREIGN BODY-SUPERFICIAL 05/22/2010 MADL ED TECH, JHONATAN L 558.9 GASTROENTERITIS NONINFECTIOUS 05/22/2010 MADL ED TECH, JHONATAN L 917.7 FOREIGN BODY-SUPERFICIAL 05/22/2010 MAVERICK ED TECH, ZACHARIAH R 558.9 GASTROENTERITIS NONINFECTIOUS 05/22/2010 MAVERICK ED TECH, ZACHARIAH R 917.7 FOREIGN BODY-SUPERFICIAL 05/22/2010 MADL ED TECH, JHONATAN L 558.9 GASTROENTERITIS NONINFECTIOUS 05/22/2010 MADL ED TECH, JHONATAN L 917.7 FOREIGN BODY-SUPERFICIAL 05/22/2010 MADL ED TECH, JHONATAN L 558.9 GASTROENTERITIS NONINFECTIOUS 05/22/2010 MADL ED TECH, JHONATAN L 917.7 FOREIGN BODY-SUPERFICIAL 05/22/2010 MADL ED TECH, JHONATAN L 558.9 GASTROENTERITIS NONINFECTIOUS 05/22/2010 MADL ED TECH, JHONATAN L 917.7 FOREIGN BODY-SUPERFICIAL 05/22/2010 MADL ED TECH, JHONATAN L 558.9 GASTROENTERITIS NONINFECTIOUS 05/22/2010 MADL ED TECH, JHONATAN L 917.7 FOREIGN BODY-SUPERFICIAL 05/22/2010 MADL ED TECH, JHONATAN L 558.9 GASTROENTERITIS NONINFECTIOUS 05/22/2010 MADL ED TECH, JHONATAN L 917.7 FOREIGN BODY-SUPERFICIAL 05/22/2010 MADL ED TECH, JHONATAN L 558.9 GASTROENTERITIS NONINFECTIOUS 05/22/2010 MADL ED TECH, JHONATAN L 917.7 FOREIGN BODY-SUPERFICIAL 05/22/2010 CURRIE DO, AMELIA K 558.9 GASTROENTERITIS NONINFECTIOUS 05/22/2010 CURRIE DO, AMELIA K 917.7 FOREIGN BODY-SUPERFICIAL 05/22/2010 MADL ED TECH, JHONATAN L 558.9 GASTROENTERITIS NONINFECTIOUS 05/22/2010 MADL ED TECH, JHONATAN L 917.7 FOREIGN BODY-SUPERFICIAL 05/22/2010 BLANCHE ED TECH, BHARAT S 558.9 GASTROENTERITIS NONINFECTIOUS 05/22/2010 BLANCHE ED TECH, BHARAT S 917.7 FOREIGN BODY-SUPERFICIAL 05/22/2010 558.9 GASTROENTERITIS NONINFECTIOUS 05/22/2010 917.7 FOREIGN BODY- SUPERFICIAL 05/22/2010 MAVERICK ED TECH, ZACHARIAH R 558.9 GASTROENTERITIS NONINFECTIOUS 05/22/2010 MAVERICK ED TECH, ZACHARIAH R 917.7 FOREIGN BODY-SUPERFICIAL 05/22/2010 SUZY SIMMSS, SAE 558.9 GASTROENTERITIS NONINFECTIOUS 05/22/2010 SUZY SIMMSS, SAE 917.7 FOREIGN BODY-SUPERFICIAL 05/25/2010 OK CHAVIS, MAGDALENA 787.91 DIARRHEA 05/25/2010 OK CHAVIS, MAGDALENA 787.91 DIARRHEA 05/25/2010 OK CHAVIS, MAGDALENA 787.91 DIARRHEA 05/25/2010 787.91 DIARRHEA 05/25/2010 OK CHAVIS, MAGDALENA 787.91 DIARRHEA 05/25/2010 787.91 DIARRHEA 05/25/2010 787.91 DIARRHEA 05/25/2010 787.91 DIARRHEA 05/25/2010 787.91 DIARRHEA 05/25/2010 787.91 DIARRHEA 05/25/2010 787.91 DIARRHEA 05/25/2010 787.91 DIARRHEA 05/25/2010 787.91 DIARRHEA 05/25/2010 RADHA FUCHS, FELIBERTO A 787.91 DIARRHEA 05/25/2010 OK CHAVIS, MAGDALENA 787.91 DIARRHEA 05/25/2010 KO CHAVIS, MAGDALENA 787.91 DIARRHEA 05/25/2010 MARILEE CHAVIS, ALLI Shirley 787.91 DIARRHEA 05/25/2010 OK CHAVIS, MAGDALENA 787.91 DIARRHEA 05/25/2010 CURRIE DO, AMELIA K 787.91 DIARRHEA 05/25/2010 CURRIE DO, AMELIA K 787.91 DIARRHEA 05/25/2010 CURRIE DO, AMELIA K 787.91 DIARRHEA 05/25/2010 CURRIE DO, AMELIA K 787.91 DIARRHEA 05/25/2010 CURRIE DO, AMELIA K 787.91 DIARRHEA 05/25/2010 CHARITY ED TECH, MARCI A 787.91 DIARRHEA 05/25/2010 MADL ED TECH, JHONATAN L 787.91 DIARRHEA 05/25/2010 787.91 DIARRHEA 05/25/2010 CURRIE DO, AMELIA K 787.91 DIARRHEA 05/25/2010 CURRIE DO, AMELIA K 787.91 DIARRHEA 05/25/2010 MADL ED TECH, JHONATAN L 787.91 DIARRHEA 05/25/2010 MADL ED TECH, JHONATAN L 787.91 DIARRHEA 05/25/2010 MADL ED TECH, JHONATAN L 787.91 DIARRHEA 05/25/2010 CURRIE DO, AMELIA K 787.91 DIARRHEA 05/25/2010 MADL ED TECH, JHONATAN L 787.91 DIARRHEA 05/25/2010 MADL ED TECH, JHONATAN L 787.91 DIARRHEA 05/25/2010 MADL ED TECH, JHONATAN L 787.91 DIARRHEA 05/25/2010 CURRIE DO, AMELIA K 787.91 DIARRHEA 05/25/2010 MADL ED TECH, JHONATAN L 787.91 DIARRHEA 05/25/2010 MADL ED TECH, JHONATAN L 787.91 DIARRHEA 05/25/2010 MAVERICK ED TECH, ZACHARIAH R 787.91 DIARRHEA 05/25/2010 MADL ED TECH, JHONATAN L 787.91 DIARRHEA 05/25/2010 MADL ED TECH, JHONATAN L 787.91 DIARRHEA 05/25/2010 MADL ED TECH, JHONATAN L 787.91 DIARRHEA 05/25/2010 MADL ED TECH, JHONATAN L 787.91 DIARRHEA 05/25/2010 MADL ED TECH, JHONATAN L 787.91 DIARRHEA 05/25/2010 MADL ED TECH, JHONATAN L 787.91 DIARRHEA 05/25/2010 CURRIE DO, AMELIA K 787.91 DIARRHEA 05/25/2010 MADL ED TECH, JHONATAN L 787.91 DIARRHEA 05/25/2010 BLANCHE ED TECH, BHARAT S 787.91 DIARRHEA 05/25/2010 787.91 DIARRHEA 05/25/2010 MAVERICK ED TECH, ZACHARIAH R 787.91 DIARRHEA 05/25/2010 SUZY DDS, SAE 787.91 DIARRHEA 06/09/2010 OK CHAVIS, MAGDALENA 466.0 BRONCHITIS, ACUTE 06/09/2010 OK CHAVIS, MAGDALENA 466.0 BRONCHITIS, ACUTE 06/09/2010 MAGDALENA EUCEDA MD 466.0 BRONCHITIS, ACUTE 06/09/2010 466.0 BRONCHITIS, ACUTE 06/09/2010 MAGDALENA EUCEDA MD 466.0 BRONCHITIS, ACUTE 06/09/2010 466.0 BRONCHITIS, ACUTE 06/09/2010 466.0 BRONCHITIS, ACUTE 06/09/2010 466.0 BRONCHITIS, ACUTE 06/09/2010 466.0 BRONCHITIS, ACUTE 06/09/2010 466.0 BRONCHITIS, ACUTE 06/09/2010 466.0 BRONCHITIS, ACUTE 06/09/2010 466.0 BRONCHITIS, ACUTE 06/09/2010 466.0 BRONCHITIS, ACUTE 06/09/2010 RAJOTTE ED TECH, FELIBERTO A 466.0 BRONCHITIS, ACUTE 06/09/2010 OK CHAVIS, MAGDALENA 466.0 BRONCHITIS, ACUTE 06/09/2010 OK CHAVIS, MAGDALENA 466.0 BRONCHITIS, ACUTE 06/09/2010 MARILEE CHAVIS, ALLI Shirley 466.0 BRONCHITIS, ACUTE 06/09/2010 OK CHAVIS, MAGDALENA 466.0 BRONCHITIS, ACUTE 06/09/2010 CURRIE DO, AMELIA K 466.0 BRONCHITIS, ACUTE 06/09/2010 CURRIE DO, AMELIA K 466.0 BRONCHITIS, ACUTE 06/09/2010 CURRIE DO, AMELIA K 466.0 BRONCHITIS, ACUTE 06/09/2010 CURRIE DO, AMELIA K 466.0 BRONCHITIS, ACUTE 06/09/2010 CURRIE DO, AMELIA K 466.0 BRONCHITIS, ACUTE 06/09/2010 CHARITY FUCHS, MARCI A 466.0 BRONCHITIS, ACUTE 06/09/2010 MADL ED TECH, JHONATAN L 466.0 BRONCHITIS, ACUTE 06/09/2010 466.0 BRONCHITIS, ACUTE 06/09/2010 CURRIE DO, AMELIA K 466.0 BRONCHITIS, ACUTE 06/09/2010 CURRIE DO, AMELIA K 466.0 BRONCHITIS, ACUTE 06/09/2010 MADL ED TECH, JHONATAN L 466.0 BRONCHITIS, ACUTE 06/09/2010 MADL ED TECH, JHONATAN L 466.0 BRONCHITIS, ACUTE 06/09/2010 MADL ED TECH, JHONATAN L 466.0 BRONCHITIS, ACUTE 06/09/2010 CURRIE DO, AMELIA K 466.0 BRONCHITIS, ACUTE 06/09/2010 MADL ED TECH, JHONATAN L 466.0 BRONCHITIS, ACUTE 06/09/2010 MAD[facility] ED TECH, JHONATAN L 466.0 BRONCHITIS, ACUTE 06/09/2010 MAD[facility] ED TECH, JHONATAN L 466.0 BRONCHITIS, ACUTE 06/09/2010 CURRIE DO, AMELIA K 466.0 BRONCHITIS, ACUTE 06/09/2010 MAD[facility] ED TECH, JHONATAN L 466.0 BRONCHITIS, ACUTE 06/09/2010 MAD[facility] ED TECH, JHONATAN L 466.0 BRONCHITIS, ACUTE 06/09/2010 MAVERICK ED TECH, ZACHARIAH R 466.0 BRONCHITIS, ACUTE 06/09/2010 MAD[facility] ED TECH, JHONATAN L 466.0 BRONCHITIS, ACUTE 06/09/2010 MAD[facility] ED TECH, JHONATAN L 466.0 BRONCHITIS, ACUTE 06/09/2010 MAD[facility] ED TECH, JHONATAN L 466.0 BRONCHITIS, ACUTE 06/09/2010 MAD[facility] ED TECH, JHONATAN L 466.0 BRONCHITIS, ACUTE 06/09/2010 MAD[facility] ED TECH, JHONATAN L 466.0 BRONCHITIS, ACUTE 06/09/2010 MAD[facility] ED TECH, JHONATAN L 466.0 BRONCHITIS, ACUTE 06/09/2010 CURRIE DO, AMELIA K 466.0 BRONCHITIS, ACUTE 06/09/2010 [facility] ED TECH, JHONATAN L 466.0 BRONCHITIS, ACUTE 06/09/2010 BLANCHE ED TECH, BHARAT S 466.0 BRONCHITIS, ACUTE 06/09/2010 466.0 BRONCHITIS, ACUTE 06/09/2010 MAVERICK ED TECH, ZACHARIAH R 466.0 BRONCHITIS, ACUTE 06/09/2010 ALMONTE [...] FEMALE 07/14/2010 724.2 lower back pain 07/14/2010 FELIBERTO GARCIA APRN 461.9 SINUSITIS ACUTE 07/14/2010 FELIBERTO GARCIA APRN A 599.0 URINARY TRACT INFECTION 07/14/2010 FELIBERTO GARCIA APRN 625.6 STRESS INCONTINENCE FEMALE 07/14/2010 FELIBERTO GARCIA APRN 724.2 lower back pain 07/14/2010 MAGDALENA EUCEDA [...] EUCEDA MD 724.2 lower back pain 07/14/2010 ALLI HUNT MD 461.9 SINUSITIS ACUTE 07/14/2010 ALLI HUNT MD 599.0 URINARY TRACT INFECTION 07/14/2010 ALLI HUNT MD 625.6 STRESS INCONTINENCE FEMALE 07/14/2010 ALLI HUNT MD 724.2 lower back pain 07/14/2010 MAGDALENA [...] K 724.2 lower back pain 07/14/2010 CHAR[facility] ED TECH, MARCI A 461.9 SINUSITIS ACUTE 07/14/2010 CHARITY ED TECH, MARCI A 599.0 URINARY TRACT INFECTION 07/14/2010 CHARITY ED TECH, MARCI A 625.6 STRESS INCONTINENCE FEMALE 07/14/2010 CHARITY ED TECH, MARCI A 724.2 lower back pain 07/14/2010 MAD[facility] ED TECH, JHONATAN L 461.9 SINUSITIS ACUTE 07/14/2010 MAD[facility] ED TECH, JHONATAN L 599.0 URINARY TRACT INFECTION 07/14/2010 MAD[facility] ED TECH, JHONATAN L 625.6 STRESS INCONTINENCE FEMALE 07/14/2010 MAD[facility] ED TECH, JHONATAN L 724.2 lower back pain 07/14/2010 [...] K 724.2 lower back pain 07/14/2010 MAD[facility] ED TECH, JHONATAN L 461.9 SINUSITIS ACUTE 07/14/2010 MAD[facility] ED TECH, JHONATAN L 599.0 URINARY TRACT INFECTION 07/14/2010 MAD[facility] ED TECH, JHONATAN L 625.6 STRESS INCONTINENCE FEMALE 07/14/2010 MAD[facility] ED TECH, JHONATAN L 724.2 lower back pain 07/14/2010 MADL ED TECH, JHONATAN L 461.9 SINUSITIS ACUTE 07/14/2010 MAD[facility] ED TECH, JHONATAN L 599.0 URINARY TRACT INFECTION 07/14/2010 MADL ED TECH, JHONATAN L 625.6 STRESS INCONTINENCE FEMALE 07/14/2010 MADL ED TECH, JHONATAN L 724.2 lower back pain 07/14/2010 MADL ED TECH, JHONATAN L 461.9 SINUSITIS ACUTE 07/14/2010 MADL ED TECH, JHONATAN L 599.0 URINARY TRACT INFECTION 07/14/2010 MADL ED TECH, JHONATAN L 625.6 STRESS INCONTINENCE FEMALE 07/14/2010 MADL ED TECH, JHONATAN L 724.2 lower back pain 07/14/2010 CURRIE DO, AMELIA K 461.9 SINUSITIS ACUTE 07/14/2010 CURRIE DO, AMELIA K 599.0 URINARY TRACT INFECTION 07/14/2010 CURRIE DO, AMELIA K 625.6 STRESS INCONTINENCE FEMALE 07/14/2010 CURRIE DO, AMELIA K 724.2 lower back pain 07/14/2010 MADL ED TECH, JHONATAN L 461.9 SINUSITIS ACUTE 07/14/2010 MAD[facility] ED TECH, JHONATAN L 599.0 URINARY TRACT INFECTION 07/14/2010 MADL ED TECH, JHONATAN L 625.6 STRESS INCONTINENCE FEMALE 07/14/2010 MADL ED TECH, JHONATAN L 724.2 lower back pain 07/14/2010 MADL ED TECH, JHONATAN L 461.9 SINUSITIS ACUTE 07/14/2010 MAD[facility] ED TECH, JHONATAN L 599.0 URINARY TRACT INFECTION 07/14/2010 MADL ED TECH, JHONATAN L 625.6 STRESS INCONTINENCE FEMALE 07/14/2010 MADL ED TECH, JHONATAN L 724.2 lower back pain 07/14/2010 MADL ED TECH, JHONATAN L 461.9 SINUSITIS ACUTE 07/14/2010 MADL ED TECH, JHONATAN L 599.0 URINARY TRACT INFECTION 07/14/2010 MADL ED TECH, JHONATAN L 625.6 STRESS INCONTINENCE FEMALE 07/14/2010 MADL ED TECH, JHONATAN L 724.2 lower back pain 07/14/2010 CURRIE DO, AMELIA K 461.9 SINUSITIS ACUTE 07/14/2010 CURRIE DO, AMELIA K 599.0 URINARY TRACT INFECTION 07/14/2010 CURRIE DO, AMELIA K 625.6 STRESS INCONTINENCE FEMALE 07/14/2010 CURRIE DO, AMELIA K 724.2 lower back pain 07/14/2010 MAD[facility] ED TECH, JHONATAN L 461.9 SINUSITIS ACUTE 07/14/2010 MAD[facility] ED TECH, JHONATAN L 599.0 URINARY TRACT INFECTION 07/14/2010 MADL ED TECH, JHONATAN L 625.6 STRESS INCONTINENCE FEMALE 07/14/2010 MADL ED TECH, JHONATAN L 724.2 lower back pain 07/14/2010 MADL ED TECH, JHONATAN L 461.9 SINUSITIS ACUTE 07/14/2010 MADL ED TECH, JHONATAN L 599.0 URINARY TRACT INFECTION 07/14/2010 MADL ED TECH, JHONATAN L 625.6 STRESS INCONTINENCE FEMALE 07/14/2010 MADL ED TECH, JHONATAN L 724.2 lower back pain 07/14/2010 MAVERICK ED TECH, ZACHARIAH R 461.9 SINUSITIS ACUTE 07/14/2010 MAVERICK ED TECH, ZACHARIAH R 599.0 URINARY TRACT INFECTION 07/14/2010 MAVERICK ED TECH, ZACHARIAH R 625.6 STRESS INCONTINENCE FEMALE 07/14/2010 MAVERICK ED TECH, ZACHARIAH R 724.2 lower back pain 07/14/2010 MADL ED TECH, JHONATAN L 461.9 SINUSITIS ACUTE 07/14/2010 MADL ED TECH, JHONATAN L 599.0 URINARY TRACT INFECTION 07/14/2010 MADL ED TECH, JHONATAN L 625.6 STRESS INCONTINENCE FEMALE 07/14/2010 MADL ED TECH, JHONATAN L 724.2 lower back pain 07/14/2010 MADL ED TECH, JHONATAN L 461.9 SINUSITIS ACUTE 07/14/2010 MADL ED TECH, JHONATAN L 599.0 URINARY TRACT INFECTION 07/14/2010 MADL ED TECH, JHONATAN L 625.6 STRESS INCONTINENCE FEMALE 07/14/2010 MADL ED TECH, JHONATAN L 724.2 lower back pain 07/14/2010 MADL ED TECH, JHONATAN L 461.9 SINUSITIS ACUTE 07/14/2010 MADL ED TECH, JHONAATN L 599.0 URINARY TRACT INFECTION 07/14/2010 MADL ED TECH, JHNOATAN L 625.6 STRESS INCONTINENCE FEMALE 07/14/2010 MADL ED TECH, JHONATAN L 724.2 lower back pain 07/14/2010 MADL ED TECH, JHONATAN L 461.9 SINUSITIS ACUTE 07/14/2010 MADL ED TECH, JHONATAN L 599.0 URINARY TRACT INFECTION 07/14/2010 MADL ED TECH, JHONATAN L 625.6 STRESS INCONTINENCE FEMALE 07/14/2010 MADL ED TECH, JHONATAN L 724.2 lower back pain 07/14/2010 MADL ED TECH, JHONATAN L 461.9 SINUSITIS ACUTE 07/14/2010 MADL ED TECH, JHONATAN L 599.0 URINARY TRACT INFECTION 07/14/2010 MADL ED TECH, JHONATAN L 625.6 STRESS INCONTINENCE FEMALE 07/14/2010 MADL ED TECH, JHONATAN L 724.2 lower back pain 07/14/2010 MADL ED TECH, JHONATAN L 461.9 SINUSITIS ACUTE 07/14/2010 MADL ED TECH, JHONATAN L 599.0 URINARY TRACT INFECTION 07/14/2010 MADL ED TECH, JHONATAN L 625.6 STRESS INCONTINENCE FEMALE 07/14/2010 MADL ED TECH, JHONATAN L 724.2 lower back pain 07/14/2010 CURRIE DO, AMELIA K 461.9 SINUSITIS ACUTE 07/14/2010 CURRIE DO, AMELIA K 599.0 URINARY TRACT INFECTION 07/14/2010 CURRIE DO, AMELIA K 625.6 STRESS INCONTINENCE FEMALE 07/14/2010 CURRIE DO, AMELIA K 724.2 lower back pain 07/14/2010 MADL ED TECH, JHONATAN L 461.9 SINUSITIS ACUTE 07/14/2010 MADL ED TECH, JHONATAN L 599.0 URINARY TRACT INFECTION 07/14/2010 MADL ED TECH, JHONATAN L 625.6 STRESS INCONTINENCE FEMALE 07/14/2010 MADL ED TECH, JHONATAN L 724.2 lower back pain 07/14/2010 BLANCHE ED TECH, BHARAT S 461.9 SINUSITIS ACUTE 07/14/2010 BLANCHE ED TECH, BHARAT S 599.0 URINARY TRACT INFECTION 07/14/2010 BLANCHE ED TECH, BHARAT S 625.6 STRESS INCONTINENCE FEMALE 07/14/2010 BLANCHE ED TECH, BHARAT S 724.2 lower back pain 07/14/2010 461.9 SINUSITIS ACUTE 07/14/2010 599.0 URINARY TRACT INFECTION 07/14/2010 625.6 STRESS INCONTINENCE FEMALE 07/14/2010 724.2 lower back pain 07/14/2010 MAVERICK ED TECH, ZACHARIAH R 461.9 SINUSITIS ACUTE 07/14/2010 MAVERICK ED TECH, ZACHARIAH R 599.0 URINARY TRACT INFECTION 07/14/2010 MAVERICK ED TECH, ZACHARIAH R 625.6 STRESS INCONTINENCE FEMALE 07/14/2010 MAVERICK ED TECH, ZACHARIAH R 724.2 lower back pain 07/14/2010 [...] 07/23/2010 272.4 OTHER AND UNSPECIFIED HYPERLIPIDEMIA 07/23/2010 RADHA FUCHS, FELIBERTO A 272.4 OTHER AND UNSPECIFIED HYPERLIPIDEMIA 07/23/2010 OK CHAVIS, MAGDALENA 272.4 OTHER AND UNSPECIFIED HYPERLIPIDEMIA 07/23/2010 OK CHAVIS, MAGDALENA 272.4 OTHER AND UNSPECIFIED HYPERLIPIDEMIA 07/23/2010 MARILEE CHAVIS, ALLI Shirley 272.4 OTHER AND UNSPECIFIED HYPERLIPIDEMIA 07/23/2010 OK CHAVIS, MAGDALENA 272.4 OTHER AND UNSPECIFIED HYPERLIPIDEMIA 07/23/2010 CURRIE DO, AMELIA K 272.4 OTHER AND UNSPECIFIED HYPERLIPIDEMIA 07/23/2010 CURRIE DO, AMELIA K 272.4 OTHER AND UNSPECIFIED HYPERLIPIDEMIA 07/23/2010 CURRIE DO, AMELIA K 272.4 OTHER AND UNSPECIFIED HYPERLIPIDEMIA 07/23/2010 CURRIE DO, AMELIA K 272.4 OTHER AND UNSPECIFIED HYPERLIPIDEMIA 07/23/2010 CURRIE DO, AMELIA K 272.4 OTHER AND UNSPECIFIED HYPERLIPIDEMIA 07/23/2010 CHARITY ED TECH, MARCI A 272.4 OTHER AND UNSPECIFIED HYPERLIPIDEMIA 07/23/2010 MADL ED TECH, JHONATAN L 272.4 OTHER AND UNSPECIFIED HYPERLIPIDEMIA 07/23/2010 272.4 OTHER AND UNSPECIFIED HYPERLIPIDEMIA 07/23/2010 CURRIE DO, AMELIA K 272.4 OTHER AND UNSPECIFIED HYPERLIPIDEMIA 07/23/2010 CURRIE DO, AMELIA K 272.4 OTHER AND UNSPECIFIED HYPERLIPIDEMIA 07/23/2010 MADL ED TECH, JHONATAN L 272.4 OTHER AND UNSPECIFIED HYPERLIPIDEMIA 07/23/2010 MADL ED TECH, JHONATAN L 272.4 OTHER AND UNSPECIFIED HYPERLIPIDEMIA 07/23/2010 MADL ED TECH, JHONATAN L 272.4 OTHER AND UNSPECIFIED HYPERLIPIDEMIA 07/23/2010 CURRIE DO, AMELIA K 272.4 OTHER AND UNSPECIFIED HYPERLIPIDEMIA 07/23/2010 MADL ED TECH, JHONATAN L 272.4 OTHER AND UNSPECIFIED HYPERLIPIDEMIA 07/23/2010 MADL ED TECH, JHONATAN L 272.4 OTHER AND UNSPECIFIED HYPERLIPIDEMIA 07/23/2010 MADL ED TECH, JHONATAN L 272.4 OTHER AND UNSPECIFIED HYPERLIPIDEMIA 07/23/2010 CURRIE DO, AMELIA K 272.4 OTHER AND UNSPECIFIED HYPERLIPIDEMIA 07/23/2010 MADL ED TECH, JHONATAN L 272.4 OTHER AND UNSPECIFIED HYPERLIPIDEMIA 07/23/2010 MADL ED TECH, JHONATAN L 272.4 OTHER AND UNSPECIFIED HYPERLIPIDEMIA 07/23/2010 MAVERICK ED TECH, ZACHARIAH R 272.4 OTHER AND UNSPECIFIED HYPERLIPIDEMIA 07/23/2010 MADL ED TECH, JHONATAN L 272.4 OTHER AND UNSPECIFIED HYPERLIPIDEMIA 07/23/2010 MADL ED TECH, JHONATAN L 272.4 OTHER AND UNSPECIFIED HYPERLIPIDEMIA 07/23/2010 MADL ED TECH, JHONATAN L 272.4 OTHER AND UNSPECIFIED HYPERLIPIDEMIA 07/23/2010 MADL ED TECH, JHONATAN L 272.4 OTHER AND UNSPECIFIED HYPERLIPIDEMIA 07/23/2010 MADL ED TECH, JHONATAN L 272.4 OTHER AND UNSPECIFIED HYPERLIPIDEMIA 07/23/2010 MADL ED TECH, JHONATAN L 272.4 OTHER AND UNSPECIFIED HYPERLIPIDEMIA 07/23/2010 CURRIE DO, AMELIA K 272.4 OTHER AND UNSPECIFIED HYPERLIPIDEMIA 07/23/2010 MADL ED TECH, JHONATAN L 272.4 OTHER AND UNSPECIFIED HYPERLIPIDEMIA 07/23/2010 BLANCHE ED TECH, BHARAT S 272.4 OTHER AND UNSPECIFIED HYPERLIPIDEMIA 07/23/2010 272.4 OTHER AND UNSPECIFIED HYPERLIPIDEMIA 07/23/2010 MAVERICK ED TECH, ZACHARIAH R 272.4 OTHER AND UNSPECIFIED HYPERLIPIDEMIA 07/23/2010 SUZY SIMMSS, SAE 272.4 OTHER AND UNSPECIFIED HYPERLIPIDEMIA 08/17/2010 Ot 599.0 08/17/2010 Ot 788.1 08/17/2010 Ot 790.92 08/17/2010 Ot V58.61 09/25/2010 OK CHAVIS, MAGDALENA 465.9 UPPER RESPIRATORY INFECTION 09/25/2010 OK CHAVIS, MAGDALENA 847.0 SPRAIN OF NECK 09/25/2010 MAGDALENA EUCEDA MD 465.9 UPPER RESPIRATORY INFECTION 09/25/2010 OK CHAVIS, [...] HUNT MD 465.9 UPPER RESPIRATORY INFECTION 09/25/2010 LALI HUNT MD 847.0 SPRAIN OF NECK 09/25/2010 MAGDALENA EUCEDA MD 465.9 UPPER RESPIRATORY INFECTION 09/25/2010 MAGDALENA EUCEDA MD 847.0 SPRAIN OF NECK 09/25/2010 AMELIA CURRIE DO 465.9 UPPER RESPIRATORY INFECTION 09/25/2010 CURRIE DO, [...] K 847.0 SPRAIN OF NECK 09/25/2010 CHARITY ED TECH, MARCI A 465.9 UPPER RESPIRATORY INFECTION 09/25/2010 CHARITY ED TECH, MARCI A 847.0 SPRAIN OF NECK 09/25/2010 MADL ED TECH, JHONATAN L 465.9 UPPER RESPIRATORY INFECTION 09/25/2010 MADL ED TECH, JHONATAN L 847.0 SPRAIN OF NECK 09/25/2010 465.9 UPPER RESPIRATORY INFECTION 09/25/2010 847.0 SPRAIN OF NECK 09/25/2010 CURRIE DO, AMELIA K 465.9 UPPER RESPIRATORY INFECTION 09/25/2010 CURRIE DO, AMELIA K 847.0 SPRAIN OF NECK 09/25/2010 CURRIE DO, AMELIA K 465.9 UPPER RESPIRATORY INFECTION 09/25/2010 CURRIE DO, AMELIA K 847.0 SPRAIN OF NECK 09/25/2010 MADL ED TECH, JHONATAN L 465.9 UPPER RESPIRATORY INFECTION 09/25/2010 MADL ED TECH, JHONATAN L 847.0 SPRAIN OF NECK 09/25/2010 MADL ED TECH, JHONATAN L 465.9 UPPER RESPIRATORY INFECTION 09/25/2010 MADL ED TECH, JHONATAN L 847.0 SPRAIN OF NECK 09/25/2010 MADL ED TECH, JHONATAN L 465.9 UPPER RESPIRATORY INFECTION 09/25/2010 MADL ED TECH, JHONATAN L 847.0 SPRAIN OF NECK 09/25/2010 CURRIE DO, AMELIA K 465.9 UPPER RESPIRATORY INFECTION 09/25/2010 CURRIE DO, AMELIA K 847.0 SPRAIN OF NECK 09/25/2010 MADL ED TECH, JHONATAN L 465.9 UPPER RESPIRATORY INFECTION 09/25/2010 MADL ED TECH, JHONATAN L 847.0 SPRAIN OF NECK 09/25/2010 MADL ED TECH, JHONATAN L 465.9 UPPER RESPIRATORY INFECTION 09/25/2010 MADL ED TECH, JHONATAN L 847.0 SPRAIN OF NECK 09/25/2010 MADL ED TECH, JHONATAN L 465.9 UPPER RESPIRATORY INFECTION 09/25/2010 MADL ED TECH, JHONATAN L 847.0 SPRAIN OF NECK 09/25/2010 CURRIE DO, AMELIA K 465.9 UPPER RESPIRATORY INFECTION 09/25/2010 CURRIE DO, AMELIA K 847.0 SPRAIN OF NECK 09/25/2010 MADL ED TECH, JHONATAN L 465.9 UPPER RESPIRATORY INFECTION 09/25/2010 MADL ED TECH, JHONATAN L 847.0 SPRAIN OF NECK 09/25/2010 MADL ED TECH, JHONATAN L 465.9 UPPER RESPIRATORY INFECTION 09/25/2010 MADL ED TECH, JHONATAN L 847.0 SPRAIN OF NECK 09/25/2010 MAVERICK ED TECH, ZACHARIAH R 465.9 UPPER RESPIRATORY INFECTION 09/25/2010 MAVERICK ED TECH, ZACHARIAH R 847.0 SPRAIN OF NECK 09/25/2010 MADL ED TECH, JHONATAN L 465.9 UPPER RESPIRATORY INFECTION 09/25/2010 MADL ED TECH, JHONATAN L 847.0 SPRAIN OF NECK 09/25/2010 MADL ED TECH, JHONATAN L 465.9 UPPER RESPIRATORY INFECTION 09/25/2010 MADL ED TECH, JHONATAN L 847.0 SPRAIN OF NECK 09/25/2010 MADL ED TECH, JHONATAN L 465.9 UPPER RESPIRATORY INFECTION 09/25/2010 MADL ED TECH, JHONATAN L 847.0 SPRAIN OF NECK 09/25/2010 MADL ED TECH, JHONATAN L 465.9 UPPER RESPIRATORY INFECTION 09/25/2010 MADL ED TECH, JHONATAN L 847.0 SPRAIN OF NECK 09/25/2010 MADL ED TECH, JHONATAN L 465.9 UPPER RESPIRATORY INFECTION 09/25/2010 MADL ED TECH, JHONATAN L 847.0 SPRAIN OF NECK 09/25/2010 MADL ED TECH, JHONATAN L 465.9 UPPER RESPIRATORY INFECTION 09/25/2010 MADL ED TECH, JHONATAN L 847.0 SPRAIN OF NECK 09/25/2010 CURRIE DO, AMELIA K 465.9 UPPER RESPIRATORY INFECTION 09/25/2010 CURRIE DO, AMELIA K 847.0 SPRAIN OF NECK 09/25/2010 MADL ED TECH, JHONATAN L 465.9 UPPER RESPIRATORY INFECTION 09/25/2010 MADL ED TECH, JHONATAN L 847.0 SPRAIN OF NECK 09/25/2010 BLANCHE ED TECH, BHARAT S 465.9 UPPER RESPIRATORY INFECTION 09/25/2010 BLANCHE ED TECH, BHARAT S 847.0 SPRAIN OF NECK 09/25/2010 465.9 UPPER RESPIRATORY INFECTION 09/25/2010 847.0 SPRAIN OF NECK 09/25/2010 MAVREICK ED TECH, ZACHARIAH R 465.9 UPPER RESPIRATORY INFECTION 09/25/2010 MAVERICK ED TECH, ZACHARIAH R 847.0 SPRAIN OF NECK 09/25/2010 [...] EUCEDA MD 473.9 UNSPECIFIED SINUSITIS (CHRONIC) 11/04/2010 MAGADLENA EUCEDA MD 786.6 SWELLING MASS OR LUMP [...] SWELLING MASS OR LUMP IN CHEST 11/04/2010 RADHA FUCHS FELIBERTO A 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 11/04/2010 FELIBERTO GARCIA APRN A 473.9 UNSPECIFIED SINUSITIS (CHRONIC) 11/04/2010 RADHA [...] SWELLING MASS OR LUMP IN CHEST 11/04/2010 CURIRE DO, AMELIA K 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 11/04/2010 CURRIE DO, AMELIA K 473.9 UNSPECIFIED SINUSITIS (CHRONIC) 11/04/2010 CURRIE DO, AMELIA K 786.6 SWELLING MASS OR LUMP IN CHEST 11/04/2010 CHARITY ED TECH, MARCI A 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 11/04/2010 CHARITY ED TECH, MARCI A 473.9 UNSPECIFIED SINUSITIS (CHRONIC) 11/04/2010 CHARITY ED TECH, MARCI A 786.6 SWELLING MASS OR LUMP IN CHEST 11/04/2010 MADL ED TECH, JHONATAN L 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 11/04/2010 MADL ED TECH, JHONATAN L 473.9 UNSPECIFIED SINUSITIS (CHRONIC) 11/04/2010 MADL ED TECH, JHONATAN L 786.6 SWELLING MASS OR LUMP [...] MASS OR LUMP IN CHEST 11/04/2010 MADL ED TECH, JHONATAN L 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 11/04/2010 MADL ED TECH, JHONATAN L 473.9 UNSPECIFIED SINUSITIS (CHRONIC) 11/04/2010 MADL ED TECH, JHONATAN L 786.6 SWELLING MASS OR LUMP IN CHEST 11/04/2010 MADL ED TECH, JHONATAN L 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 11/04/2010 MADL ED TECH, JHONATAN L 473.9 UNSPECIFIED SINUSITIS (CHRONIC) 11/04/2010 MADL ED TECH, JHONATAN L 786.6 SWELLING MASS OR LUMP IN CHEST 11/04/2010 MADL ED TECH, JHONATAN L 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 11/04/2010 MADL ED TECH, JHONATAN L 473.9 UNSPECIFIED SINUSITIS (CHRONIC) 11/04/2010 MADL ED TECH, JHONATAN L 786.6 SWELLING MASS OR LUMP IN CHEST 11/04/2010 CURRIE DO AMELIA K 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 11/04/2010 CURRIE DO AMELIA K 473.9 UNSPECIFIED SINUSITIS (CHRONIC) 11/04/2010 CURRIE DO, AMELIA K 786.6 SWELLING MASS OR LUMP IN CHEST 11/04/2010 MADL ED TECH, JHONATAN L 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 11/04/2010 MADL ED TECH, JHONATAN L 473.9 UNSPECIFIED SINUSITIS (CHRONIC) 11/04/2010 MADL ED TECH, JHONATAN L 786.6 SWELLING MASS OR LUMP IN CHEST 11/04/2010 MADL ED TECH, JHONATAN L 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 11/04/2010 MADL ED TECH, JHONATAN L 473.9 UNSPECIFIED SINUSITIS (CHRONIC) 11/04/2010 MADL ED TECH, JHONATAN L 786.6 SWELLING MASS OR LUMP IN CHEST 11/04/2010 MADL ED TECH, JHONATAN L 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 11/04/2010 MADL ED TECH, JHONATAN L 473.9 UNSPECIFIED SINUSITIS (CHRONIC) 11/04/2010 MADL ED TECH, JHONATAN L 786.6 SWELLING MASS OR LUMP IN CHEST 11/04/2010 CURRIE DO AMELIA K 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 11/04/2010 CURRIE DO, AMELIA K 473.9 UNSPECIFIED SINUSITIS (CHRONIC) 11/04/2010 CURRIE DO, AMELIA K 786.6 SWELLING MASS OR LUMP IN CHEST 11/04/2010 MADL ED TECH, JHONATAN L 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 11/04/2010 MADL ED TECH, JHONATAN L 473.9 UNSPECIFIED SINUSITIS (CHRONIC) 11/04/2010 MADL ED TECH, JHONATAN L 786.6 SWELLING MASS OR LUMP IN CHEST 11/04/2010 MADL ED TECH, JHONATAN L 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 11/04/2010 MADL ED TECH, JHONATAN L 473.9 UNSPECIFIED SINUSITIS (CHRONIC) 11/04/2010 MADL ED TECH, JHONATAN L 786.6 SWELLING MASS OR LUMP IN CHEST 11/04/2010 MAVERICK ED TECH, ZACHARIAH R 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 11/04/2010 MAVERICK ED TECH, ZACHARIAH R 473.9 UNSPECIFIED SINUSITIS (CHRONIC) 11/04/2010 MAVERICK ED TECH, ZACHARIAH R 786.6 SWELLING MASS OR LUMP IN CHEST 11/04/2010 MADL ED TECH, JHONATAN L 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 11/04/2010 MADL ED TECH, JHONATAN L 473.9 UNSPECIFIED SINUSITIS (CHRONIC) 11/04/2010 MADL ED TECH, JHONATAN L 786.6 SWELLING MASS OR LUMP IN CHEST 11/04/2010 MADL ED TECH, JHONATAN L 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 11/04/2010 MADL ED TECH, JHONATAN L 473.9 UNSPECIFIED SINUSITIS (CHRONIC) 11/04/2010 MADL ED TECH, JHONATAN L 786.6 SWELLING MASS OR LUMP IN CHEST 11/04/2010 MADL ED TECH, JHONATAN L 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 11/04/2010 MADL ED TECH, JHONATAN L 473.9 UNSPECIFIED SINUSITIS (CHRONIC) 11/04/2010 MADL ED TECH, JHONATAN L 786.6 SWELLING MASS OR LUMP IN CHEST 11/04/2010 MADL ED TECH, JHONATAN L 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 11/04/2010 MADL ED TECH, JHONATAN L 473.9 UNSPECIFIED SINUSITIS (CHRONIC) 11/04/2010 MADL ED TECH, JHONATAN L 786.6 SWELLING MASS OR LUMP IN CHEST 11/04/2010 MADL ED TECH, JHONATAN L 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 11/04/2010 MADL ED TECH, JHONATAN L 473.9 UNSPECIFIED SINUSITIS (CHRONIC) 11/04/2010 MADL ED TECH, JHONATAN L 786.6 SWELLING MASS OR LUMP IN CHEST 11/04/2010 MADL ED TECH, JHONATAN L 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 11/04/2010 MADL ED TECH, JHONATAN L 473.9 UNSPECIFIED SINUSITIS (CHRONIC) 11/04/2010 MADL ED TECH, JHONATAN L 786.6 SWELLING MASS OR LUMP IN CHEST 11/04/2010 CURRIE DO, AMELIA K 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 11/04/2010 CURRIE DO, AMELIA K 473.9 UNSPECIFIED SINUSITIS (CHRONIC) 11/04/2010 CURRIE DO, AMELIA K 786.6 SWELLING MASS OR LUMP IN CHEST 11/04/2010 MADL ED TECH, JHONATAN L 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 11/04/2010 MADL ED TECH, JHONATAN L 473.9 UNSPECIFIED SINUSITIS (CHRONIC) 11/04/2010 MADL ED TECH, JHONATAN L 786.6 SWELLING MASS OR LUMP IN CHEST 11/04/2010 BLANCHE ED TECH, BHARAT S 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 11/04/2010 BLANCHE ED TECH, BHARAT S 473.9 UNSPECIFIED SINUSITIS (CHRONIC) 11/04/2010 BLANCHE ED TECH, BHARAT S 786.6 SWELLING MASS OR LUMP IN CHEST 11/04/2010 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 11/04/2010 473.9 UNSPECIFIED SINUSITIS (CHRONIC) 11/04/2010 786.6 SWELLING MASS OR LUMP IN CHEST 11/04/2010 MAVERICK ED TECH, ZACHARIAH R 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 11/04/2010 MAVERICK ED TECH, ZACHARIAH R 473.9 UNSPECIFIED SINUSITIS (CHRONIC) 11/04/2010 MAVERICK FUCHS, ZACHARIAH R 786.6 SWELLING MASS OR LUMP IN CHEST 11/04/2010 SUZY SIMMSS, SAE 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 11/04/2010 SUZY GRANADOS, SAE 473.9 UNSPECIFIED SINUSITIS (CHRONIC) 11/04/2010 SUZY [...] MD 278.01 OBESITY MORBID BMI >40 12/22/2010 AMELIA CURRIE DO 278.01 OBESITY MORBID BMI >40 12/22/2010 AMELIA CURRIE DO K 278.01 OBESITY MORBID BMI >40 12/22/2010 RICHA CURRIE DOA K 278.01 OBESITY MORBID BMI >40 12/22/2010 AMELIA CURRIE DO K 278.01 OBESITY MORBID BMI >40 12/22/2010 CURRIE DO, AMELIA K 278.01 OBESITY MORBID BMI >40 12/22/2010 CHARITY ED TECH, MARCI A 278.01 OBESITY MORBID BMI >40 12/22/2010 MADL ED TECH, JHONATAN L 278.01 OBESITY MORBID BMI >40 12/22/2010 278.01 OBESITY MORBID BMI >40 12/22/2010 CURRIE DO, AMELIA K 278.01 OBESITY MORBID BMI >40 12/22/2010 CURRIE DO, AMELIA K 278.01 OBESITY MORBID BMI >40 12/22/2010 MADL ED TECH, JHONATAN L 278.01 OBESITY MORBID BMI >40 12/22/2010 MADL ED TECH, JHONATAN L 278.01 OBESITY MORBID BMI >40 12/22/2010 MAD ED TECH, JHONATAN L 278.01 OBESITY MORBID BMI >40 12/22/2010 CURRIE DO, AMELIA K 278.01 OBESITY MORBID BMI >40 12/22/2010 MAD ED TECH, JHONATAN L 278.01 OBESITY MORBID BMI >40 12/22/2010 MAD ED TECH, JHONATAN L 278.01 OBESITY MORBID BMI >40 12/22/2010 MAD ED TECH, JHONATAN L 278.01 OBESITY MORBID BMI >40 12/22/2010 CURRIE DO, AMELIA K 278.01 OBESITY MORBID BMI >40 12/22/2010 MAD ED TECH, JHONATAN L 278.01 OBESITY MORBID BMI >40 12/22/2010 MAD ED TECH, JHONATAN L 278.01 OBESITY MORBID BMI >40 12/22/2010 JOSSELINE TEMPLE APRNINA R 278.01 OBESITY MORBID BMI >40 12/22/2010 MAD ED TECH, JHONATAN L 278.01 OBESITY MORBID BMI >40 12/22/2010 MAD ED TECH, JHONATAN L 278.01 OBESITY MORBID BMI >40 12/22/2010 MAD ED TECH, JHONATAN L 278.01 OBESITY MORBID BMI >40 12/22/2010 MAD ED TECH, JHONATAN L 278.01 OBESITY MORBID BMI >40 12/22/2010 MAD ED TECH, JHONATAN L 278.01 OBESITY MORBID BMI >40 12/22/2010 MAD ED TECH, JHONATAN L 278.01 OBESITY MORBID BMI >40 12/22/2010 CURRIE DO, AMELIA K 278.01 OBESITY MORBID BMI >40 12/22/2010 JHONATAN EWING APRN L 278.01 OBESITY MORBID BMI >40 12/22/2010 BHARAT MANCIA APRN S 278.01 OBESITY MORBID BMI >40 12/22/2010 278.01 OBESITY MORBID BMI >40 12/22/2010 MAVERICK FUCHSZACHARIAH R 278.01 OBESITY MORBID BMI >40 12/22/2010 SAE [...] APRN A 525.9 tooth pain 03/24/2011 MAGDALENA ECUEDA MD 525.9 tooth pain 03/24/2011 MAGDALENA EUCEDA MD 525.9 tooth pain 03/24/2011 MARILEE CHAVIS, ALLI Shirley 525.9 tooth pain 03/24/2011 MAGDALENA EUCEDA MD 525.9 tooth pain 03/24/2011 CURRIE DO, AMELIA K 525.9 TOOTH PAIN 03/24/2011 CURRIE DO, AMELIA K 525.9 TOOTH PAIN 03/24/2011 UCRRIE DO, AMELIA K 525.9 TOOTH PAIN 03/24/2011 CURRIE DO, AMELIA K 525.9 TOOTH PAIN 03/24/2011 CURRIE DO, AMELIA K 525.9 TOOTH PAIN 03/24/2011 MARCI NASH APRN A 525.9 TOOTH PAIN 03/24/2011 JHONATAN EWING APRN L 525.9 TOOTH PAIN 03/24/2011 525.9 TOOTH PAIN 03/24/2011 CURRIE DO, AMELIA K 525.9 TOOTH PAIN 03/24/2011 CURRIE DO, AMELIA K 525.9 TOOTH PAIN 03/24/2011 MADL ED TECH, JHONATAN L 525.9 TOOTH PAIN 03/24/2011 MADL ED TECH, JHONATAN L 525.9 TOOTH PAIN 03/24/2011 MADL ED TECH, JHONATAN L 525.9 TOOTH PAIN 03/24/2011 CURRIE DO, AMELIA K 525.9 TOOTH PAIN 03/24/2011 MADL ED TECH, JHONATAN L 525.9 TOOTH PAIN 03/24/2011 MADL ED TECH, JHONATAN L 525.9 TOOTH PAIN 03/24/2011 MADL ED TECH, JHONATAN L 525.9 TOOTH PAIN 03/24/2011 CURRIE DO, AMELIA K 525.9 TOOTH PAIN 03/24/2011 MADL ED TECH, JHONATAN L 525.9 TOOTH PAIN 03/24/2011 MADL ED TECH, JHONATAN L 525.9 TOOTH PAIN 03/24/2011 MAVERICK ED TECH, ZACHARIAH R 525.9 TOOTH PAIN 03/24/2011 MADL ED TECH, JHONATAN L 525.9 TOOTH PAIN 03/24/2011 MADL ED TECH, JOHNATAN L 525.9 TOOTH PAIN 03/24/2011 MADL ED TECH, JHONATAN L 525.9 TOOTH PAIN 03/24/2011 MADL ED TECH, JHONATAN L 525.9 TOOTH PAIN 03/24/2011 MADL ED TECH, JHONATAN L 525.9 TOOTH PAIN 03/24/2011 MADL ED TECH, JHONATAN L 525.9 TOOTH PAIN 03/24/2011 CURRIE DO, AMELIA K 525.9 TOOTH PAIN 03/24/2011 MADL ED TECH, JHONATAN L 525.9 TOOTH PAIN 03/24/2011 BLANCHE ED TECH, BHARAT S 525.9 TOOTH PAIN 03/24/2011 525.9 TOOTH PAIN 03/24/2011 MAVERICK ED TECH, ZACHARIAH R 525.9 TOOTH PAIN 03/24/2011 SUZY DDS, SAE 525.9 TOOTH PAIN 07/12/2012 OK CHAVIS, MAGDALENA 401.1 ESSENTIAL HYPERTENSION BENIGN 07/12/2012 MAGDALENA EUCEDA MD 414.00 CAD 07/12/2012 MAGDALENA EUCEDA MD 401.1 ESSENTIAL HYPERTENSION BENIGN 07/12/2012 OK CHVAIS, MAGDALENA 414.00 CAD 07/12/2012 MAGDALENA EUCEDA MD [...] BENIGN 07/12/2012 414.00 ASYMPTOMATIC CORONARY ARTERIOSCLEROSIS 07/12/2012 FELIBERTO GARCIA APRN A 401.1 ESSENTIAL HYPERTENSION BENIGN 07/12/2012 JENNIFER GARCIA APRNYL A 414.00 ASYMPTOMATIC CORONARY ARTERIOSCLEROSIS 07/12/2012 MAGDALENA [...] 07/12/2012 MAGDALENA EUCEDA MD 414.00 CAD 07/12/2012 AMELIA CURRIE DO 401.1 ESSENTIAL HYPERTENSION BENIGN 07/12/2012 CURRIE DO, [...] K 414.00 ASYMPTOMATIC CORONARY ARTERIOSCLEROSIS 07/12/2012 [facility] ED TECH, MARCI A 401.1 ESSENTIAL HYPERTENSION BENIGN 07/12/2012 CHARITY ED TECH, MARCI A 414.00 ASYMPTOMATIC CORONARY ARTERIOSCLEROSIS 07/12/2012 MAD[facility] ED TECH, JHONATAN L 401.1 ESSENTIAL HYPERTENSION BENIGN 07/12/2012 MAD[facility] ED TECH, JHONATAN L 414.00 ASYMPTOMATIC CORONARY ARTERIOSCLEROSIS 07/12/2012 401.1 ESSENTIAL HYPERTENSION BENIGN 07/12/2012 414.00 ASYMPTOMATIC CORONARY ARTERIOSCLEROSIS 07/12/2012 CURRIE DO, AMELIA K 401.1 ESSENTIAL HYPERTENSION BENIGN 07/12/2012 CURRIE DO, AMELIA K 414.00 ASYMPTOMATIC CORONARY ARTERIOSCLEROSIS 07/12/2012 CURRIE DO, AMELIA K 401.1 ESSENTIAL HYPERTENSION BENIGN 07/12/2012 CURRIE DO, AMELIA K 414.00 ASYMPTOMATIC CORONARY ARTERIOSCLEROSIS 07/12/2012 MAD[facility] ED TECH, JHONATAN L 401.1 ESSENTIAL HYPERTENSION BENIGN 07/12/2012 MAD[facility] ED TECH, JHONATAN L 414.00 ASYMPTOMATIC CORONARY ARTERIOSCLEROSIS 07/12/2012 MAD[facility] ED TECH, JHONATAN L 401.1 ESSENTIAL HYPERTENSION BENIGN 07/12/2012 MAD[facility] ED TECH, JHONATAN L 414.00 ASYMPTOMATIC CORONARY ARTERIOSCLEROSIS 07/12/2012 MAD[facility] ED TECH, JHONATAN L 401.1 ESSENTIAL HYPERTENSION BENIGN 07/12/2012 MAD[facility] ED TECH, JHONATAN L 414.00 ASYMPTOMATIC CORONARY ARTERIOSCLEROSIS 07/12/2012 CURRIE DO, AMELIA K 401.1 ESSENTIAL HYPERTENSION BENIGN 07/12/2012 CURRIE DO, AMELIA K 414.00 ASYMPTOMATIC CORONARY ARTERIOSCLEROSIS 07/12/2012 MAD[facility] ED TECH, JHONATAN L 401.1 ESSENTIAL HYPERTENSION BENIGN 07/12/2012 MAD[facility] ED TECH, JHONATAN L 414.00 ASYMPTOMATIC CORONARY ARTERIOSCLEROSIS 07/12/2012 MAD[facility] ED TECH, JHONATAN L 401.1 ESSENTIAL HYPERTENSION BENIGN 07/12/2012 MAD[facility] ED TECH, JHONATAN L 414.00 ASYMPTOMATIC CORONARY ARTERIOSCLEROSIS 07/12/2012 MAD[facility] ED TECH, JHONATAN L 401.1 ESSENTIAL HYPERTENSION BENIGN 07/12/2012 MAD[facility] ED TECH, JHONATAN L 414.00 ASYMPTOMATIC CORONARY ARTERIOSCLEROSIS 07/12/2012 CURRIE DO, AMELIA K 401.1 ESSENTIAL HYPERTENSION BENIGN 07/12/2012 CURRIE DO, AMELIA K 414.00 ASYMPTOMATIC CORONARY ARTERIOSCLEROSIS 07/12/2012 MAD[facility] ED TECH, JHONATAN L 401.1 ESSENTIAL HYPERTENSION BENIGN 07/12/2012 MADL ED TECH, JHONATAN L 414.00 ASYMPTOMATIC CORONARY ARTERIOSCLEROSIS 07/12/2012 MAD[facility] ED TECH, JHONATAN L 401.1 ESSENTIAL HYPERTENSION BENIGN 07/12/2012 MAD[facility] ED TECH, JHONATAN L 414.00 ASYMPTOMATIC CORONARY ARTERIOSCLEROSIS 07/12/2012 MAVERICK ED TECH, ZACHARIAH R 401.1 ESSENTIAL HYPERTENSION BENIGN 07/12/2012 MAVERICK ED TECH, ZACHARIAH R 414.00 ASYMPTOMATIC CORONARY ARTERIOSCLEROSIS 07/12/2012 MAD[facility] ED TECH, JHONATAN L 401.1 ESSENTIAL HYPERTENSION BENIGN 07/12/2012 MADL ED TECH, JHONATAN L 414.00 ASYMPTOMATIC CORONARY ARTERIOSCLEROSIS 07/12/2012 MAD[facility] ED TECH, JHONATAN L 401.1 ESSENTIAL HYPERTENSION BENIGN 07/12/2012 MADL ED TECH, JHONATAN L 414.00 ASYMPTOMATIC CORONARY ARTERIOSCLEROSIS 07/12/2012 MAD[facility] ED TECH, JHONATAN L 401.1 ESSENTIAL HYPERTENSION BENIGN 07/12/2012 MADL ED TECH, JHONATAN L 414.00 ASYMPTOMATIC CORONARY ARTERIOSCLEROSIS 07/12/2012 MAD[facility] ED TECH, JHONATAN L 401.1 ESSENTIAL HYPERTENSION BENIGN 07/12/2012 MAD[facility] ED TECH, JHONATAN L 414.00 ASYMPTOMATIC CORONARY ARTERIOSCLEROSIS 07/12/2012 MAD[facility] ED TECH, JHONATAN L 401.1 ESSENTIAL HYPERTENSION BENIGN 07/12/2012 MADL ED TECH, JHONATAN L 414.00 ASYMPTOMATIC CORONARY ARTERIOSCLEROSIS 07/12/2012 MAD[facility] ED TECH, JHONATAN L 401.1 ESSENTIAL HYPERTENSION BENIGN 07/12/2012 MAD[facility] ED TECH, JHONATAN L 414.00 ASYMPTOMATIC CORONARY ARTERIOSCLEROSIS 07/12/2012 CURRIE DO, AMELIA K 401.1 ESSENTIAL HYPERTENSION BENIGN 07/12/2012 CURRIE DO, AMELIA K 414.00 ASYMPTOMATIC CORONARY ARTERIOSCLEROSIS 07/12/2012 MAD[facility] ED TECH, JHONATAN L 401.1 ESSENTIAL HYPERTENSION BENIGN 07/12/2012 MAD[facility] ED TECH, JHONATAN L 414.00 ASYMPTOMATIC CORONARY ARTERIOSCLEROSIS 07/12/2012 [facility] ED TECH, BHARAT S 401.1 ESSENTIAL HYPERTENSION BENIGN 07/12/2012 BLANCHE ED TECH, BHARAT S 414.00 ASYMPTOMATIC CORONARY ARTERIOSCLEROSIS 07/12/2012 401.1 ESSENTIAL HYPERTENSION BENIGN 07/12/2012 414.00 ASYMPTOMATIC CORONARY ARTERIOSCLEROSIS 07/12/2012 MAVER[facility] ED TECH, ZACHARIAH R 401.1 ESSENTIAL HYPERTENSION BENIGN 07/12/2012 MAVERICK ED TECH, ZACHARIAH R 414.00 ASYMPTOMATIC CORONARY ARTERIOSCLEROSIS 07/12/2012 [...] GARCIA APRN V65.49 OTHER SPECIFIED COUNSELING 01/16/2013 JENNIFER GARCIA APRNYL A V73.81 HPV SCREENING 01/16/2013 JENNIFER GARCIA APRNYL A V76.10 BREAST CANCER SCREENING 01/16/2013 JENNIFER GARCIA APRNYL A V76.51 SPECIAL SCREENING FOR MALIGNANT NEOPLASMS [...] SPECIAL SCREENING FOR MALIGNANT NEOPLASMS COLON 01/16/2013 AMELIA CURRIE DO V65.49 OTHER SPECIFIED COUNSELING 01/16/2013 CURRIE DO, [...] SCREENING FOR MALIGNANT NEOPLASMS COLON 01/16/2013 [facility] ED TECH, MARCI A V65.49 OTHER SPECIFIED COUNSELING 01/16/2013 CHAR[facility] ED TECH, MARCI A V73.81 HPV SCREENING 01/16/2013 CHAR[facility] ED TECH, MARCI A V76.10 BREAST CANCER SCREENING 01/16/2013 CHARITY ED TECH, MARCI A V76.51 SPECIAL SCREENING FOR MALIGNANT NEOPLASMS COLON 01/16/2013 [facility] ED TECHDAVIDA L V65.49 OTHER SPECIFIED COUNSELING 01/16/2013 [facility] ED TECH, JHONATAN L V73.81 HPV SCREENING 01/16/2013 [facility] ED TECH, JHONATAN L V76.10 BREAST CANCER SCREENING 01/16/2013 MAD[facility] ED TECH, JHONATAN L V76.51 SPECIAL SCREENING FOR MALIGNANT [...] SCREENING FOR MALIGNANT NEOPLASMS COLON 01/16/2013 [facility] ED TECH, JHONATAN L V65.49 OTHER SPECIFIED COUNSELING 01/16/2013 M[facility] ED TECH, JHONATAN L V73.81 HPV SCREENING 01/16/2013 MAD[facility] ED TECH, JHONATAN L V76.10 BREAST CANCER SCREENING 01/16/2013 [facility] ED TECH, JHONATAN L V76.51 SPECIAL SCREENING FOR MALIGNANT NEOPLASMS COLON 01/16/2013 MAD[facility] ED TECH, JHONATAN L V65.49 OTHER SPECIFIED COUNSELING 01/16/2013 MAD[facility] ED TECH, JHONATAN L V73.81 HPV SCREENING 01/16/2013 MAD[facility] ED TECH, JHONATAN L V76.10 BREAST CANCER SCREENING 01/16/2013 MAD[facility] ED TECH, JHONATAN L V76.51 SPECIAL SCREENING FOR MALIGNANT NEOPLASMS COLON 01/16/2013 MAD[facility] ED TECH, JHONATAN L V65.49 OTHER SPECIFIED COUNSELING 01/16/2013 MAD[facility] ED TECH, JHONATAN L V73.81 HPV SCREENING 01/16/2013 MAD[facility] ED TECH, JHONATAN L V76.10 BREAST CANCER SCREENING 01/16/2013 MADL ED TECH, JHONATAN L V76.51 SPECIAL SCREENING FOR MALIGNANT NEOPLASMS COLON 01/16/2013 CURRIE DO, AMELIA K V65.49 OTHER SPECIFIED COUNSELING 01/16/2013 CURRIE DO, AMELIA K V73.81 HPV SCREENING 01/16/2013 CURRIE DO, AMELIA K V76.10 BREAST CANCER SCREENING 01/16/2013 CURRIE DO, AMELIA K V76.51 SPECIAL SCREENING FOR MALIGNANT NEOPLASMS COLON 01/16/2013 MAD[facility] ED TECH, JHONATAN L V65.49 OTHER SPECIFIED COUNSELING 01/16/2013 MAD[facility] ED TECH, JHONATAN L V73.81 HPV SCREENING 01/16/2013 MAD[facility] ED TECH, JHONATAN L V76.10 BREAST CANCER SCREENING 01/16/2013 MADL ED TECH, JHONATAN L V76.51 SPECIAL SCREENING FOR MALIGNANT NEOPLASMS COLON 01/16/2013 MADL ED TECH, JHONATAN L V65.49 OTHER SPECIFIED COUNSELING 01/16/2013 MADL ED TECH, JHONATAN L V73.81 HPV SCREENING 01/16/2013 MAD[facility] ED TECH, JHONATAN L V76.10 BREAST CANCER SCREENING 01/16/2013 MADL ED TECH, JHONATAN L V76.51 SPECIAL SCREENING FOR MALIGNANT NEOPLASMS COLON 01/16/2013 MADL ED TECH, JHONATAN L V65.49 OTHER SPECIFIED COUNSELING 01/16/2013 MADL ED TECH, JHONATAN L V73.81 HPV SCREENING 01/16/2013 MAD[facility] ED TECH, JHONATAN L V76.10 BREAST CANCER SCREENING 01/16/2013 MADL ED TECH, JHONATAN L V76.51 SPECIAL SCREENING FOR MALIGNANT NEOPLASMS COLON 01/16/2013 CURRIE DO, AMELIA K V65.49 OTHER SPECIFIED COUNSELING 01/16/2013 CURRIE DO, AMELIA K V73.81 HPV SCREENING 01/16/2013 CURRIE DO, AMELIA K V76.10 BREAST CANCER SCREENING 01/16/2013 CURRIE DO, AMELIA K V76.51 SPECIAL SCREENING FOR MALIGNANT NEOPLASMS COLON 01/16/2013 MADL ED TECH, JHONATAN L V65.49 OTHER SPECIFIED COUNSELING 01/16/2013 MADL ED TECH, JHONATAN L V73.81 HPV SCREENING 01/16/2013 MAD[facility] ED TECH, JHONATAN L V76.10 BREAST CANCER SCREENING 01/16/2013 MADL ED TECH, JHONATAN L V76.51 SPECIAL SCREENING FOR MALIGNANT NEOPLASMS COLON 01/16/2013 MADL ED TECH, JHONATAN L V65.49 OTHER SPECIFIED COUNSELING 01/16/2013 MADL ED TECH, JHONATAN L V73.81 HPV SCREENING 01/16/2013 MAD[facility] ED TECH, JHONATAN L V76.10 BREAST CANCER SCREENING 01/16/2013 MADL ED TECH, JHONATAN L V76.51 SPECIAL SCREENING FOR MALIGNANT NEOPLASMS COLON 01/16/2013 [facility] ED TECH, ZACHARIAH R V65.49 OTHER SPECIFIED COUNSELING 01/16/2013 [facility] ED TECH, ZACHARIAH R V73.81 HPV SCREENING 01/16/2013 [facility] ED TECH, ZACHARIAH R V76.10 BREAST CANCER SCREENING 01/16/2013 [facility] ED TECH, ZACHARIAH R V76.51 SPECIAL SCREENING FOR MALIGNANT NEOPLASMS COLON 01/16/2013 MAD[facility] ED TECH, JHONATAN L V65.49 OTHER SPECIFIED COUNSELING 01/16/2013 MAD[facility] ED TECH, JHONATAN L V73.81 HPV SCREENING 01/16/2013 MAD ED TECH, JHONATAN L V76.10 BREAST CANCER SCREENING 01/16/2013 [facility] ED TECH, JHONATAN L V76.51 SPECIAL SCREENING FOR MALIGNANT NEOPLASMS COLON 01/16/2013 MAD ED TECH, JHONATAN L V65.49 OTHER SPECIFIED COUNSELING 01/16/2013 MADL ED TECH, JHONATAN L V73.81 HPV SCREENING 01/16/2013 MAD[facility] ED TECH, JHONATAN L V76.10 BREAST CANCER SCREENING 01/16/2013 MADL ED TECH, JHONATAN L V76.51 SPECIAL SCREENING FOR MALIGNANT NEOPLASMS COLON 01/16/2013 MADL ED TECH, JHONATAN L V65.49 OTHER SPECIFIED COUNSELING 01/16/2013 MADL ED TECH, JHONATAN L V73.81 HPV SCREENING 01/16/2013 MAD[facility] ED TECH, JHONATAN L V76.10 BREAST CANCER SCREENING 01/16/2013 MADL ED TECH, JHONATAN L V76.51 SPECIAL SCREENING FOR MALIGNANT NEOPLASMS COLON 01/16/2013 MADL ED TECH, JHONATAN L V65.49 OTHER SPECIFIED COUNSELING 01/16/2013 MADL ED TECH, JHONATAN L V73.81 HPV SCREENING 01/16/2013 MAD[facility] ED TECH, JHONATAN L V76.10 BREAST CANCER SCREENING 01/16/2013 MADL ED TECH, JHONATAN L V76.51 SPECIAL SCREENING FOR MALIGNANT NEOPLASMS COLON 01/16/2013 MADL ED TECH, JHONATAN L V65.49 OTHER SPECIFIED COUNSELING 01/16/2013 MADL ED TECH, JHONATAN L V73.81 HPV SCREENING 01/16/2013 MAD[facility] ED TECH, JHONATAN L V76.10 BREAST CANCER SCREENING 01/16/2013 MADL ED TECH, JHONATAN L V76.51 SPECIAL SCREENING FOR MALIGNANT NEOPLASMS COLON 01/16/2013 MAD[facility] ED TECH, JHONATAN L V65.49 OTHER SPECIFIED COUNSELING 01/16/2013 MADL ED TECH, JHONATAN L V73.81 HPV SCREENING 01/16/2013 MAD[facility] ED TECH, JHONATAN L V76.10 BREAST CANCER SCREENING 01/16/2013 MADL ED TECH, JHONATAN L V76.51 SPECIAL SCREENING FOR MALIGNANT NEOPLASMS COLON 01/16/2013 CURRIE DO AMELIA K V65.49 OTHER SPECIFIED COUNSELING 01/16/2013 CURRIE DO AMELIA K V73.81 HPV SCREENING 01/16/2013 CURRIE DO AMELIA K V76.10 BREAST CANCER SCREENING 01/16/2013 CURRIE DO AMELIA K V76.51 SPECIAL SCREENING FOR MALIGNANT NEOPLASMS COLON 01/16/2013 MAD[facility] ED TECH, JHONATAN L V65.49 OTHER SPECIFIED COUNSELING 01/16/2013 MADL ED TECH, JHONATAN L V73.81 HPV SCREENING 01/16/2013 [facility] ED TECH, JHONATAN L V76.10 BREAST CANCER SCREENING 01/16/2013 M[facility] ED TECH, JHONATAN L V76.51 SPECIAL SCREENING FOR MALIGNANT NEOPLASMS COLON 01/16/2013 [facility] TECH, BHARAT S V65.49 OTHER SPECIFIED COUNSELING 01/16/2013 [facility] TECH, BHARAT S V73.81 HPV SCREENING 01/16/2013 [facility] TECH, BHARAT S V76.10 BREAST CANCER SCREENING 01/16/2013 [facility] ED TECH, BHARAT S V76.51 SPECIAL SCREENING FOR MALIGNANT NEOPLASMS COLON 01/16/2013 V65.49 OTHER SPECIFIED COUNSELING 01/16/2013 V73.81 HPV SCREENING 01/16/2013 V76.10 BREAST CANCER SCREENING 01/16/2013 V76.51 SPECIAL SCREENING FOR MALIGNANT NEOPLASMS COLON 01/16/2013 JOSSELINE TEMPLE APRNINA R V65.49 OTHER SPECIFIED COUNSELING 01/16/2013 ZACHARIAH TEMPLE APRN R V73.81 HPV SCREENING 01/16/2013 MAVERICK GUTIERREZNJOSSELINEZACHARIAH R V76.10 BREAST CANCER SCREENING 01/16/2013 [facility] FUCHS ZACHARIAH R V76.51 SPECIAL SCREENING FOR MALIGNANT NEOPLASMS COLON 01/16/2013 SUZY SIMMSSSAE V65.49 OTHER SPECIFIED COUNSELING 01/16/2013 SUZY SIMMSSSAE V73.81 HPV SCREENING 01/16/2013 ALMONTE DDSSAE V76.10 BREAST CANCER SCREENING 01/16/2013 SUZY SIMMSSSAE V76.51 SPECIAL SCREENING FOR MALIGNANT NEOPLASMS COLON 05/08/2013 241.0 THYROID NODULE , SOLITARY 05/08/2013 241.0 THYROID NODULE , SOLITARY 05/08/2013 FELIBERTO GARCIA APRN A 241.0 THYROID NODULE, SOLITARY 05/08/2013 MAGDALENA EUCEDA MD 241.0 THYROID NODULE, SOLITARY 05/08/2013 MAGDALENA EUCEDA MD 241.0 THYROID NODULE, SOLITARY 05/08/2013 MARILEE CHAVIS, [...] A 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 05/08/2013 JHONATAN EWING APRN L 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 05/08/2013 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 05/08/2013 CURRIE DO, AMELIA K 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 05/08/2013 CURRIE DO, AMELIA K 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 05/08/2013 DAVID EWING APRNA L 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 05/08/2013 [facility] ED TECH, JHONATAN L 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 05/08/2013 [facility] ED TECH, JHONATAN L 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 05/08/2013 CURRIE DO, AMELIA K 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 05/08/2013 [facility] ED TECH, JHONATAN L 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 05/08/2013 [facility] ED TECH, JHONATAN L 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 05/08/2013 [facility] ED TECH, JHONATAN L 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 05/08/2013 CURRIE DO, AMELIA K 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 05/08/2013 [facility] ED TECH, JHONATAN L 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 05/08/2013 [facility] ED TECH, JHONATAN L 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 05/08/2013 [facility] ED TECH, ZACHARIAH R 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 05/08/2013 [facility] ED TECH, JHONATAN L 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 05/08/2013 [facility] ED TECH, JHONATAN L 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 05/08/2013 [facility] ED TECH, JHONATAN L 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 05/08/2013 [facility] ED TECH, JHONATAN L 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 05/08/2013 [facility] ED TECH, JHONATAN L 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 05/08/2013 [facility] ED TECH, JHONATAN L 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 05/08/2013 CURRIE DO, AMELIA K 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 05/08/2013 [facility] ED TECH, JHONATAN L 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 05/08/2013 [facility] ED TECH, BHARAT S 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 05/08/2013 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 05/08/2013 [facility] ED TECH, ZACHARIAH R 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 05/08/2013 SUZY GRANADOS, SAE 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 10/02/2013 RADHA FUCHS, FELIBERTO Gonsales V04.81 FLU SHOT 10/02/2013 OK CHAVIS, MAGDALENA V04.81 FLU SHOT 10/02/2013 OK CHAVIS, MAGDALENA V04.81 FLU SHOT 10/02/2013 MARILEE CHAVIS, ALLI Shirley V04.81 FLU SHOT 10/02/2013 CURRIE DO, AMELIA K V04.81 FLU SHOT 10/02/2013 CURRIE DO, AMELIA K V04.81 FLU SHOT 10/02/2013 CURRIE DO, AMELIA K V04.81 FLU SHOT 10/02/2013 CURRIE DO, AMELIA K V04.81 FLU SHOT 10/02/2013 CURRIE DO, AMELIA K V04.81 FLU SHOT 10/02/2013 [facility] TECH, MARCI A V04.81 FLU SHOT 10/02/2013 [facility] ED TECH, JHONATAN L V04.81 FLU SHOT 10/02/2013 V04.81 FLU SHOT 10/02/2013 CURRIE DO, AMELIA K V04.81 FLU SHOT 10/02/2013 CURRIE DO, AMELIA K V04.81 FLU SHOT 10/02/2013 [facility] ED TECH, JHONATAN L V04.81 FLU SHOT 10/02/2013 MADL ED TECH, JHONATAN L V04.81 FLU SHOT 10/02/2013 M[facility] ED TECH, JHONATAN L V04.81 FLU SHOT 10/02/2013 CURRIE DO, AMELIA K V04.81 FLU SHOT 10/02/2013 M[facility] ED TECH, JHONATAN L V04.81 FLU SHOT 10/02/2013 MAD[facility] ED TECH, JHONATAN L V04.81 FLU SHOT 10/02/2013 MAD[facility] ED TECH, JHONATAN L V04.81 FLU SHOT 10/02/2013 CURRIE DO, AMELIA K V04.81 FLU SHOT 10/02/2013 MAD[facility] ED TECH, JHONATAN L V04.81 FLU SHOT 10/02/2013 MAD[facility] ED TECH, JHONATAN L V04.81 FLU SHOT 10/02/2013 ZACHARIAH TEMPLE APRN R V04.81 FLU SHOT 10/02/2013 M[facility] ED TECH, JHONATAN L V04.81 FLU SHOT 10/02/2013 MAD[facility] ED TECH, JHONATAN L V04.81 FLU SHOT 10/02/2013 MADL ED TECH, JHONATAN L V04.81 FLU SHOT 10/02/2013 MADL ED TECH, JHONATAN L V04.81 FLU SHOT 10/02/2013 MADL ED TECH, JHONATAN L V04.81 FLU SHOT 10/02/2013 MADL ED TECH, JHONATAN L V04.81 FLU SHOT 10/02/2013 CURRIE DO, AMELIA K V04.81 FLU SHOT 10/02/2013 MAD[facility] ED TECH, JHNOATAN L V04.81 FLU SHOT 10/02/2013 [facility] ED TECH, BHARAT S V04.81 FLU SHOT 10/02/2013 V04.81 FLU SHOT 10/02/2013 [facility] ED TECH, ZACHARIAH R V04.81 FLU SHOT 10/02/2013 ALMONTESAE SILVER DDS V04.81 FLU SHOT 12/06/2013 ALLI HUNT MD 496 CHRONIC OBSTRUCTIVE PULMONARY DISEASE 12/06/2013 ALLI HUNT MD 790.21 IMPAIRED FASTING GLUCOSE 12/06/2013 CURRIE DO AMELIA K 496 CHRONIC OBSTRUCTIVE PULMONARY DISEASE [...] K 790.21 IMPAIRED FASTING GLUCOSE 12/06/2013 [facility] TECH, MARCI A 496 CHRONIC OBSTRUCTIVE PULMONARY DISEASE 12/06/2013 [facility] ED TECH, MARCI A 790.21 IMPAIRED FASTING GLUCOSE 12/06/2013 [facility] ED TECH, JHONATAN L 496 CHRONIC OBSTRUCTIVE PULMONARY DISEASE 12/06/2013 MAD[facility] ED TECH, JHONATAN L 790.21 IMPAIRED FASTING GLUCOSE 12/06/2013 496 CHRONIC OBSTRUCTIVE PULMONARY DISEASE 12/06/2013 790.21 IMPAIRED FASTING GLUCOSE 12/06/2013 CURRIE DO, AMELIA K 496 CHRONIC OBSTRUCTIVE PULMONARY DISEASE 12/06/2013 CURRIE DO, AMELIA K 790.21 IMPAIRED FASTING GLUCOSE 12/06/2013 CURRIE DO, AMELIA K 496 CHRONIC OBSTRUCTIVE PULMONARY DISEASE 12/06/2013 CURRIE DO, AMELIA K 790.21 IMPAIRED FASTING GLUCOSE 12/06/2013 [facility] ED TECH, JHONATAN L 496 CHRONIC OBSTRUCTIVE PULMONARY DISEASE 12/06/2013 MAD[facility] ED TECH, JHONATAN L 790.21 IMPAIRED FASTING GLUCOSE 12/06/2013 MADL ED TECH, JHONATAN L 496 CHRONIC OBSTRUCTIVE PULMONARY DISEASE 12/06/2013 MAD[facility] ED TECH, JHONATAN L 790.21 IMPAIRED FASTING GLUCOSE 12/06/2013 MADL ED TECH, JHONATAN L 496 CHRONIC OBSTRUCTIVE PULMONARY DISEASE 12/06/2013 MAD[facility] ED TECH, JHONATAN L 790.21 IMPAIRED FASTING GLUCOSE 12/06/2013 CURRIE DO, AMELIA K 496 CHRONIC OBSTRUCTIVE PULMONARY DISEASE 12/06/2013 CURRIE DO, AMELIA K 790.21 IMPAIRED FASTING GLUCOSE 12/06/2013 MAD[facility] ED TECH, JHONATAN L 496 CHRONIC OBSTRUCTIVE PULMONARY DISEASE 12/06/2013 MAD[facility] ED TECH, JHONATAN L 790.21 IMPAIRED FASTING GLUCOSE 12/06/2013 MADL ED TECH, JHONATAN L 496 CHRONIC OBSTRUCTIVE PULMONARY DISEASE 12/06/2013 MAD[facility] ED TECH, JHONATAN L 790.21 IMPAIRED FASTING GLUCOSE 12/06/2013 MADL ED TECH, JHONATAN L 496 CHRONIC OBSTRUCTIVE PULMONARY DISEASE 12/06/2013 MAD[facility] ED TECH, JHONATAN L 790.21 IMPAIRED FASTING GLUCOSE 12/06/2013 CURRIE DO, AMELIA K 496 CHRONIC OBSTRUCTIVE PULMONARY DISEASE 12/06/2013 CURRIE DO, AMELIA K 790.21 IMPAIRED FASTING GLUCOSE 12/06/2013 M[facility] ED TECH, JHONATAN L 496 CHRONIC OBSTRUCTIVE PULMONARY DISEASE 12/06/2013 M[facility] ED TECH, JHONATAN L 790.21 IMPAIRED FASTING GLUCOSE 12/06/2013 MAD[facility] ED TECH, JHONATAN L 496 CHRONIC OBSTRUCTIVE PULMONARY DISEASE 12/06/2013 M[facility] ED TECH, JHONATAN L 790.21 IMPAIRED FASTING GLUCOSE 12/06/2013 MAVERICK FUCHS ZACHARIAH R 496 CHRONIC OBSTRUCTIVE PULMONARY DISEASE 12/06/2013 [facility] ED TECH, ZACHARIAH R 790.21 IMPAIRED FASTING GLUCOSE 12/06/2013 [facility] ED TECH, JHONATAN L 496 CHRONIC OBSTRUCTIVE PULMONARY DISEASE 12/06/2013 [facility] ED TECH, JHONATAN L 790.21 IMPAIRED FASTING GLUCOSE 12/06/2013 M[facility] ED TECH, JHONATAN L 496 CHRONIC OBSTRUCTIVE PULMONARY DISEASE 12/06/2013 [facility] ED TECH, JHONATAN L 790.21 IMPAIRED FASTING GLUCOSE 12/06/2013 MAD[facility] ED TECH, JHONATAN L 496 CHRONIC OBSTRUCTIVE PULMONARY DISEASE 12/06/2013 M[facility] ED TECH, JHONATAN L 790.21 IMPAIRED FASTING GLUCOSE 12/06/2013 M[facility] ED TECH, JHONATAN L 496 CHRONIC OBSTRUCTIVE PULMONARY DISEASE 12/06/2013 M[facility] ED TECH, JHONATAN L 790.21 IMPAIRED FASTING GLUCOSE 12/06/2013 M[facility] ED TECH, JHONATAN L 496 CHRONIC OBSTRUCTIVE PULMONARY DISEASE 12/06/2013 M[facility] ED TECH, JHONATAN L 790.21 IMPAIRED FASTING GLUCOSE 12/06/2013 M[facility] ED TECH, JHONATAN L 496 CHRONIC OBSTRUCTIVE PULMONARY DISEASE 12/06/2013 M[facility] ED TECH, JHONATAN L 790.21 IMPAIRED FASTING GLUCOSE 12/06/2013 CURRIE DO, AMELIA K 496 CHRONIC OBSTRUCTIVE PULMONARY DISEASE 12/06/2013 CURRIE DO AMELIA K 790.21 IMPAIRED FASTING GLUCOSE 12/06/2013 [facility] ED TECH, JHONATAN L 496 CHRONIC OBSTRUCTIVE PULMONARY DISEASE 12/06/2013 [facility] ED TECH, JHONATAN L 790.21 IMPAIRED FASTING GLUCOSE 12/06/2013 [facility] ED TECH, BHARAT S 496 CHRONIC OBSTRUCTIVE PULMONARY DISEASE 12/06/2013 [facility] ED TECH, BHARAT S 790.21 IMPAIRED FASTING GLUCOSE 12/06/2013 496 CHRONIC OBSTRUCTIVE PULMONARY DISEASE 12/06/2013 790.21 IMPAIRED FASTING GLUCOSE 12/06/2013 [facility] ED TECH, ZACHARIAH R 496 CHRONIC OBSTRUCTIVE PULMONARY DISEASE 12/06/2013 [facility] ED TECH, ZACHARIAH R 790.21 IMPAIRED FASTING GLUCOSE 12/06/2013 ALMONTE DDS, SAE 496 CHRONIC OBSTRUCTIVE PULMONARY DISEASE 12/06/2013 ALMONTE DDS, SAE 790.21 IMPAIRED FASTING GLUCOSE 01/22/2014 CURRIE DO AMELIA K 719.41 PAIN [...] IN JOINT INVOLVING SHOULDER REGION 01/22/2014 MAD[facility] ED TECH, JHONATAN L 719.41 PAIN IN JOINT INVOLVING SHOULDER REGION 01/22/2014 719.41 PAIN IN JOINT INVOLVING SHOULDER REGION 01/22/2014 CURRIE DO AMELIA K 719.41 PAIN IN JOINT INVOLVING SHOULDER REGION 01/22/2014 CURRIE DO AMELIA K 719.41 PAIN IN JOINT INVOLVING SHOULDER REGION 01/22/2014 MAD[facility] ED TECH, JHONATAN L 719.41 PAIN IN JOINT INVOLVING SHOULDER REGION 01/22/2014 MADL ED TECH, JHONATAN L 719.41 PAIN IN JOINT INVOLVING SHOULDER REGION 01/22/2014 MADL ED TECH, JHONATAN L 719.41 PAIN IN JOINT INVOLVING SHOULDER REGION 01/22/2014 CURRIE DO AMELIA K 719.41 PAIN IN JOINT INVOLVING SHOULDER REGION 01/22/2014 MAD[facility] ED TECH, JHONATAN L 719.41 PAIN IN JOINT INVOLVING SHOULDER REGION 01/22/2014 MADL ED TECH, JHONATAN L 719.41 PAIN IN JOINT INVOLVING SHOULDER REGION 01/22/2014 MADL ED TECH, JHONATAN L 719.41 PAIN IN JOINT INVOLVING SHOULDER REGION 01/22/2014 CURRIE DO AMELIA K 719.41 PAIN IN JOINT INVOLVING SHOULDER REGION 01/22/2014 MADL ED TECH, JHONATAN L 719.41 PAIN IN JOINT INVOLVING SHOULDER REGION 01/22/2014 [facility] ED TECH, JHONATAN L 719.41 PAIN IN JOINT INVOLVING SHOULDER REGION 01/22/2014 ZACHARIAH TEMPLE APRN 719.41 PAIN IN JOINT INVOLVING SHOULDER REGION 01/22/2014 [facility] ED TECH, JHONATAN L 719.41 PAIN IN JOINT INVOLVING SHOULDER REGION 01/22/2014 MAD[facility] ED TECH, JHONATAN L 719.41 PAIN IN JOINT INVOLVING SHOULDER REGION 01/22/2014 M[facility] ED TECH, JHONATAN L 719.41 PAIN IN JOINT INVOLVING SHOULDER REGION 01/22/2014 [facility] ED TECHDAVIDA L 719.41 PAIN IN JOINT INVOLVING SHOULDER REGION 01/22/2014 [facility] ED TECHDAVIDA L 719.41 PAIN IN JOINT INVOLVING SHOULDER REGION 01/22/2014 MADL ED TECHDAVIDA L 719.41 PAIN IN JOINT INVOLVING SHOULDER REGION 01/22/2014 AMELIA CURRIE DO K 719.41 PAIN IN JOINT INVOLVING SHOULDER REGION 01/22/2014 [facility] ED TECH, JHONATAN L 719.41 PAIN IN JOINT INVOLVING [...] APRN Ot 729.5 PAIN IN LIMB 02/06/2014 AMEILA CURRIE DO K 521.00 CARIES 02/06/2014 AMELIA CURRIE DO K V58.61 LONG-TERM (CURRENT) USE OF ANTICOAGULANTS 02/06/2014 RICHA CURRIE DOA K 521.00 CARIES 02/06/2014 RICHA CURRIE DOA K V58.61 LONG-TERM (CURRENT) USE OF ANTICOAGULANTS 02/06/2014 ROSEY SCHREIBER AMELIA K 521.00 CARIES 02/06/2014 CURRIE DO AMELIA K V58.61 LONG-TERM (CURRENT) USE OF ANTICOAGULANTS 02/06/2014 ROSEY SCHREIBER AMELIA K 521.00 CARIES 02/06/2014 CURRIE DO AMELIA K V58.61 LONG-TERM (CURRENT) USE OF ANTICOAGULANTS 02/06/2014 MARCI NASH APRN 521.00 CARIES 02/06/2014 MARCI NASH APRN V58.61 LONG-TERM (CURRENT) USE OF ANTICOAGULANTS 02/06/2014 [facility] ED TECH, JHONATAN L 521.00 CARIES 02/06/2014 MAD[facility] ED TECH, JHONATAN L V58.61 LONG-TERM (CURRENT) USE OF ANTICOAGULANTS 02/06/2014 521.00 CARIES 02/06/2014 V58.61 LONG-TERM ( CURRENT) USE OF ANTICOAGULANTS 02/06/2014 CURRIE DO, AMELIA K 521.00 CARIES 02/06/2014 CURRIE DO, AMELIA K V58.61 LONG-TERM (CURRENT) USE OF ANTICOAGULANTS 02/06/2014 CURRIE DO, AMELIA K 521.00 CARIES 02/06/2014 CURRIE DO, AMELIA K V58.61 LONG-TERM (CURRENT) USE OF ANTICOAGULANTS 02/06/2014 [facility] ED TECH, JHONATAN L 521.00 CARIES 02/06/2014 MADL ED TECH, JHONATAN L V58.61 LONG-TERM (CURRENT) USE OF ANTICOAGULANTS 02/06/2014 MAD[facility] ED TECH, JHONATAN L 521.00 CARIES 02/06/2014 MADL ED TECH, JHONATAN L V58.61 LONG-TERM (CURRENT) USE OF ANTICOAGULANTS 02/06/2014 MADL ED TECH, JHONATAN L 521.00 CARIES 02/06/2014 MADL ED TECH, JHONATAN L V58.61 LONG-TERM (CURRENT) USE OF ANTICOAGULANTS 02/06/2014 CURRIE DO, AMELIA K 521.00 CARIES 02/06/2014 CURRIE DO, AMELIA K V58.61 LONG-TERM (CURRENT) USE OF ANTICOAGULANTS 02/06/2014 [facility] ED TECH, JHONATAN L 521.00 CARIES 02/06/2014 MADL ED TECH, JHONATAN L V58.61 LONG-TERM (CURRENT) USE OF ANTICOAGULANTS 02/06/2014 MADL ED TECH, JHONATAN L 521.00 CARIES 02/06/2014 MADL ED TECH, JHONATAN L V58.61 LONG-TERM (CURRENT) USE OF ANTICOAGULANTS 02/06/2014 MADL ED TECH, JHONATAN L 521.00 CARIES 02/06/2014 MADL ED TECH, JHONATAN L V58.61 LONG-TERM (CURRENT) USE OF ANTICOAGULANTS 02/06/2014 CURRIE DO, AMELIA K 521.00 CARIES 02/06/2014 CURRIE DO, AMELIA K V58.61 LONG-TERM (CURRENT) USE OF ANTICOAGULANTS 02/06/2014 MADL ED TECH, JHONATAN L 521.00 CARIES 02/06/2014 MADL ED TECH, JHONATAN L V58.61 LONG-TERM (CURRENT) USE OF ANTICOAGULANTS 02/06/2014 MADL ED TECH, JHONATAN L 521.00 CARIES 02/06/2014 MADL ED TECH, JHONATAN L V58.61 LONG-TERM (CURRENT) USE OF ANTICOAGULANTS 02/06/2014 MAVERICK ED TECH, ZACHARIAH R 521.00 CARIES 02/06/2014 MAVERICK ED TECH, ZACHARIAH R V58.61 LONG-TERM (CURRENT) USE OF ANTICOAGULANTS 02/06/2014 MADL ED TECH, JHONATAN L 521.00 CARIES 02/06/2014 MADL ED TECH, JHONATAN L V58.61 LONG-TERM (CURRENT) USE OF ANTICOAGULANTS 02/06/2014 MADL ED TECH, JHONATAN L 521.00 CARIES 02/06/2014 MADL ED TECH, JHONATAN L V58.61 LONG-TERM (CURRENT) USE OF ANTICOAGULANTS 02/06/2014 MADL ED TECH, JHONATAN L 521.00 CARIES 02/06/2014 MADL ED TECH, JHONATAN L V58.61 LONG-TERM (CURRENT) USE OF ANTICOAGULANTS 02/06/2014 MADL ED TECH, JHONATAN L 521.00 CARIES 02/06/2014 MADL ED TECH, JHONATAN L V58.61 LONG-TERM (CURRENT) USE OF ANTICOAGULANTS 02/06/2014 MADL ED TECH, JHONATAN L 521.00 CARIES 02/06/2014 MADL ED TECH, JHONATAN L V58.61 LONG-TERM (CURRENT) USE OF ANTICOAGULANTS 02/06/2014 MADL ED TECH, JHONATAN L 521.00 CARIES 02/06/2014 MADL ED TECH, JHONATAN L V58.61 LONG-TERM (CURRENT) USE OF ANTICOAGULANTS 02/06/2014 CURRIE DO, AMELIA K 521.00 CARIES 02/06/2014 CURRIE DO, AMELIA K V58.61 LONG-TERM (CURRENT) USE OF ANTICOAGULANTS 02/06/2014 MADL ED TECH, JHONATAN L 521.00 CARIES 02/06/2014 XIOMARAJennifer FUCHS JHONATAN L V58.61 LONG-TERM (CURRENT) USE OF ANTICOAGULANTS 02/06/2014 JOVON MANCIA APRNA S 521.00 CARIES 02/06/2014 BLANCHE ED TECH BHARAT S V58.61 LONG-TERM (CURRENT) USE OF ANTICOAGULANTS 02/06/2014 521.00 CARIES 02/06/2014 V58.61 LONG-TERM ( CURRENT) USE OF ANTICOAGULANTS 02/06/2014 MAVERICK ED TECH ZACHARIAH R 521.00 CARIES 02/06/2014 MAVERICK ED TECH, ZACHARIAH R V58.61 LONG-TERM (CURRENT) USE OF ANTICOAGULANTS 02/06/2014 SUZY SIMMSSSAE 521.00 CARIES 02/06/2014 ALMONTE DDSSAE V58.61 LONG-TERM (CURRENT) USE OF ANTICOAGULANTS 02/26/2014 CURRIE DO, AMELIA K 599.0 URINARY TRACT INFECTION 02/26/2014 CURRIE DO, AMELIA K 599.70 HEMATURIA UNSPECIFIED 02/26/2014 CURIRE DO, AMELIA K 786.2 COUGH 02/26/2014 CURRIE DO, AMELIA K V72.31 CIRCUIT WALKER EXAM, ROUTINE 02/26/2014 CURRIE DO, AMELIA K V76.2 CERVICAL CANCER SCREENING (PAP SMEAR) 02/26/2014 CURRIE DO, AMELIA K 599.0 URINARY TRACT INFECTION 02/26/2014 CURRIE DO, AMELIA K 599.70 HEMATURIA UNSPECIFIED 02/26/2014 CURRIE DO, AMELIA K 786.2 COUGH 02/26/2014 CURRIE DO, AMELIA K V72.31 CIRCUIT WALKER EXAM, ROUTINE 02/26/2014 CURRIE DO, AMELIA K V76.2 CERVICAL CANCER SCREENING (PAP SMEAR) 02/26/2014 CHARITY ED TECH, MARCI A 599.0 URINARY TRACT INFECTION 02/26/2014 CHARITY ED TECH, MARCI A 599.70 HEMATURIA UNSPECIFIED 02/26/2014 CHARITY ED TECH, MARCI A 786.2 COUGH 02/26/2014 CHARITY ED TECH, MARCI A V72.31 CIRCUIT WALKER EXAM, ROUTINE 02/26/2014 CHARITY ED TECH, MARCI A V76.2 CERVICAL CANCER SCREENING (PAP SMEAR) 02/26/2014 MADL ED TECH, JHONATAN L 599.0 URINARY TRACT INFECTION 02/26/2014 MADL ED TECH, JHONATAN L 599.70 HEMATURIA UNSPECIFIED 02/26/2014 MADL ED TECH, JHONATAN L 786.2 COUGH 02/26/2014 MADL ED TECH, JHONATAN L V72.31 CIRCUIT WALKER EXAM, ROUTINE 02/26/2014 MADL ED TECH, JHONATAN L V76.2 CERVICAL CANCER SCREENING (PAP SMEAR) 02/26/2014 599.0 URINARY TRACT INFECTION 02/26/2014 599.70 HEMATURIA UNSPECIFIED 02/26/2014 786.2 COUGH 02/26/2014 V72.31 CIRCUIT WALKER EXAM, ROUTINE 02/26/2014 V76.2 CERVICAL CANCER SCREENING (PAP SMEAR) 02/26/2014 CURRIE DO, AMELIA K 599.0 URINARY TRACT INFECTION 02/26/2014 CURRIE DO, AMELIA K 599.70 HEMATURIA UNSPECIFIED 02/26/2014 CURRIE DO, AMELIA K 786.2 COUGH 02/26/2014 CURRIE DO, AMELIA K V72.31 CIRCUIT WALKER EXAM, ROUTINE 02/26/2014 CURRIE DO, AMELIA K V76.2 CERVICAL CANCER SCREENING (PAP SMEAR) 02/26/2014 CURRIE DO, AMELIA K 599.0 URINARY TRACT INFECTION 02/26/2014 CURRIE DO, AMELIA K 599.70 HEMATURIA UNSPECIFIED 02/26/2014 CURRIE DO, AMELIA K 786.2 COUGH 02/26/2014 CURRIE DO, AMELIA K V72.31 CIRCUIT WALKER EXAM, ROUTINE 02/26/2014 CURRIE DO, AMELIA K V76.2 CERVICAL CANCER SCREENING (PAP SMEAR) 02/26/2014 MADL ED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 WITHOUT 06/22/2017 EVELINE PENG MD Ot M06.9 RHEUMATOID ARTHRITIS, UNSPECIFIED 06/22/2017 EVELINE PENG MD Ot Z87.19 PERSONAL HISTORY OF OTHER DISEASES OF 06/22/2017 EVELINE PENG MD Ot Z90.49 ACQUIRED ABSENCE OF OTHER SPECIFIED PART 06/22/2017 EVELINE PENG MD Ot Z95.1 PRESENCE OF AORTOCORONARY BYPASS GRAFT 06/22/2017 EVELINE PENG MD Ot Z95.2 PRESENCE OF PROSTHETIC HEART VALVE 06/22/2017 EVELINE PENG MD Ot Z98.51 TUBAL LIGATION STATUS 06/22/2017 EVELINE PENG MD Ot I10 ESSENTIAL (PRIMARY) HYPERTENSION 06/22/2017 EVELINE PENG MD, Ot I25.10 ATHSCL HEART DISEASE OF [place] CORONARY 06/22/2017 EVELINE PENG MD Ot K02.9 DENTAL CARIES, UNSPECIFIED 06/22/2017 EVELINE PENG MD Ot K08.89 OTHER SPECIFIED DISORDERS OF TEETH AND S 06/22/2017 EVELINE PENG MD Ot K21.9 GASTRO-ESOPHAGEAL REFLUX DISEASE WITHOUT 06/22/2017 EVELINE PENG MD Ot M06.9 RHEUMATOID ARTHRITIS, UNSPECIFIED 06/22/2017 EVELINE PENG MD Ot 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 06/22/2017 EVELINE PENG MD Ot Z79.82 INTERMEDIATE (CURRENT) USE OF ASPIRIN 06/22/2017 EVELINE PENG MD Ot Z87.19 PERSONAL HISTORY OF OTHER DISEASES OF 06/22/2017 EVELINE PENG MD Ot Z90.49 ACQUIRED ABSENCE OF OTHER SPECIFIED PART 06/22/2017 EVELINE PENG MD Ot Z95.1 PRESENCE OF AORTOCORONARY BYPASS GRAFT 06/22/2017 EVELINE PENG MD Ot Z95.2 PRESENCE OF PROSTHETIC HEART VALVE 06/22/2017 EVELINE PENG MD Ot Z98.51 TUBAL LIGATION STATUS 06/26/2017 EVELINE PENG MD Ot I10 ESSENTIAL (PRIMARY) HYPERTENSION 06/26/2017 EVELINE PENG MD Ot I25.10 ATHSCL HEART DISEASE OF [place] CORONARY 06/26/2017 EVELINE PENG MD Ot K02.9 DENTAL CARIES, UNSPECIFIED 06/26/2017 EVELINE PENG MD Ot K08.89 OTHER SPECIFIED DISORDERS OF TEETH AND S 06/26/2017 EVELINE PENG MD Ot K21.9 GASTRO-ESOPHAGEAL REFLUX DISEASE WITHOUT 06/26/2017 EVELINE PENG MD Ot M06.9 RHEUMATOID ARTHRITIS, UNSPECIFIED 06/26/2017 EVELINE PENG MD Ot Z79.01 INTERMEDIATE (CURRENT) USE OF ANTICOAGULANT 06/26/2017 EVELINE PENG MD Ot 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.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 06/26/2017 EVELINE PENG MD Ot Z87.19 PERSONAL HISTORY OF OTHER DISEASES OF TH 06/26/2017 EVELINE PENG MD Ot Z90.49 ACQUIRED ABSENCE OF OTHER SPECIFIED PART 06/26/2017 EVELINE PENG MD Ot Z95.1 PRESENCE OF AORTOCORONARY BYPASS GRAFT 06/26/2017 EVELINE PENG MD Ot Z95.2 PRESENCE OF PROSTHETIC HEART VALVE 06/26/2017 EVELINE PENG MD Ot Z98.51 TUBAL LIGATION STATUS 07/29/2017 COREY DIAL APRN Ot I10 ESSENTIAL (PRIMARY) HYPERTENSION 07/29/2017 COREY DIAL APRN Ot I25.10 ATHSCL HEART DISEASE OF [place] CORONARY 07/29/2017 COREY DIAL APRN Ot J44.9 CHRONIC OBSTRUCTIVE PULMONARY DISEASE, U 07/29/2017 COREY DIAL APRN Ot K02.9 DENTAL CARIES, UNSPECIFIED 07/29/2017 COREY DIAL APRN Ot K21.9 GASTRO-ESOPHAGEAL REFLUX DISEASE WITHOUT 07/29/2017 COREY DIAL APRN Ot M06.9 RHEUMATOID ARTHRITIS, UNSPECIFIED 07/29/2017 COREY DIAL APRN Ot R68.84 JAW PAIN 07/29/2017 COREY DIAL APRN Ot 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 07/29/2017 COREY DIAL APRN Ot Z79.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 07/29/2017 COREY DIAL APRN Ot Z87.440 PERSONAL HISTORY OF URINARY (TRACT) INFE 07/29/2017 COREY DIAL APRN Ot Z87.891 PERSONAL HISTORY OF NICOTINE DEPENDENCE 07/29/2017 COREY DIAL APRN Ot Z90.49 ACQUIRED ABSENCE OF OTHER SPECIFIED PART 07/29/2017 COREY DIAL APRN Ot Z95.1 PRESENCE OF AORTOCORONARY BYPASS GRAFT 07/29/2017 COREY DIAL APRN Ot Z95.2 PRESENCE OF PROSTHETIC HEART VALVE 07/29/2017 COREY DIAL APRN Ot Z98.51 TUBAL LIGATION STATUS Procedures Code Description [place] [address] INR (IN HOUSE) 09/05/2012 15971 INR (IN HOUSE) 10/18/2012 Cardiolog Latrell Hawkins 10/25/2012 12838 XRAY CHEST 2 VIEW 12/01/[address] CHEST W/O DYE 12/01/2012 09229 INR (IN HOUSE) 12/01/2012 11050 XRAY THORACIC SPINE 2 VIEWS 01/10/2013 29516 XRAY LUMBAR SPINE 2 OR 3 VIEWS 01/10/2013 68166 ROUTINE VENIPUNCTURE 01/11/2013 89065 INR (IN HOUSE) 01/11/2013 61351 A1C (IN-HOUSE) 01/11/2013 33700 CMP 01/11/2013 86618 LIPID PANEL 01/11/2013 97419 CBC 01/11/2013 6255258 GFR CALC (RESULT ONLY) 01/11/2013 67544 MAMMOGRAM, SCREENING 01/18/2013 J1040 DEPO MEDROL 80 MG INJ 02/21/2013 09551 THERAPUTIC INJ SQ/IM 02/21/2013 43693 UA W/ CULTURE IF INDICATED 02/21/2013 33115 INR (IN HOUSE) 03/09/2013 01130 ROUTINE VENIPUNCTURE 04/17/2013 98022 CMP 04/17/2013 0600476 GFR CALC (RESULT ONLY) 04/17/[address] CHEST W/O DYE 04/20/2013 28676 UA W/ CULTURE IF INDICATED 06/01/2013 43366 CULTURE URINE 06/03/2013 07093 ROUTINE VENIPUNCTURE 10/12/2013 69611 OXIMETRY 10/12/2013 50041 CMP 10/12/2013 1504704 GFR CALC (RESULT ONLY) 10/12/2013 74627 ROUTINE VENIPUNCTURE 02/06/2014 61006 INR (IN HOUSE) 02/06/2014 68898 CMP 02/06/2014 00393 LIPID PANEL 02/06/2014 33834 CPK 02/06/2014 27998 INR (IN HOUSE) 02/19/2014 88214 ROUTINE VENIPUNCTURE 02/26/2014 98795 INR (IN HOUSE) 02/26/2014 40137 UA LONG DIP 02/26/2014 98388 INR (IN HOUSE) 02/26/2014 16605 XRAY CHEST 2 VIEW 02/26/2014 01107 CBC 02/26/2014 70325 CULTURE URINE 02/26/2014 97296 MAMMOGRAM, SCREENING 02/27/2014 51814 PAP SMEAR 02/27/2014 Q0091 PAP SMEAR OBTAIN SMEAR 02/27/2014 20099 INR (IN HOUSE) 05/02/2014 58602 INR (IN HOUSE) 05/20/2014 00864 INR (IN HOUSE) 05/22/2014 91823 INR (IN HOUSE) 05/24/2014 06820 CAPILLARY BLOOD DRAW 05/28/2014 02604 INR (IN HOUSE) 05/28/2014 25502 INR (IN HOUSE) 06/21/2014 67342 INR (IN HOUSE) 06/28/2014 22000 INR (IN HOUSE) 07/01/2014 63842 INR (IN HOUSE) 07/09/2014 65386 INR (IN HOUSE) 07/22/2014 49410 INR (IN HOUSE) 08/30/2014 38118 INR (IN HOUSE) 09/02/2014 48387 INR (IN HOUSE) 09/20/2014 79810 INR (IN HOUSE) 09/30/2014 28506 INR (IN HOUSE) 10/07/2014 47864 INR (IN HOUSE) 11/01/2014 Results Test Result Range Influenza virus A and B antigen detection - 11/30/16 11:34 FLU RESULT NEGATIVE FOR INFLUENZA A AND B ANTIGENS BY [facility] Complete blood count (CBC) with automated white blood cell (WBC) differential - 11/30/16 12:11 Blood leukocytes automated count (number/volume) 8.9 10*3/uL 4.3-11.0 Blood erythrocytes automated count (number/volume) 4.58 10*6/uL 4.35-5.85 Venous blood hemoglobin measurement (mass/volume) 12.9 [...] Automated blood platelet mean volume measurement 10.5 [foz_us] 7.4-10.4 Automated blood neutrophils/100 leukocytes 62 % [...] Serum or plasma sodium measurement (moles/volume) 139 mmol/L 135-145 Serum or plasma potassium measurement (moles/volume) 3.3 mmol/L 3.6-5.0 Serum or plasma chloride measurement (moles/volume) 107 mmol/L 98-107 Carbon dioxide 21 mmol/L 21-32 Serum or plasma anion gap determination (moles/volume) 11 mmol/L 5-14 Serum or plasma urea nitrogen measurement (mass/volume) 18 mg/dL 7-18 Serum or plasma creatinine measurement (mass/volume) 0.87 mg/dL 0.60-1.30 Serum or plasma urea nitrogen/creatinine mass [...] plasma albumin measurement (mass/volume) 3.9 g/dL 3.2-4.5 Basic Metabolic Panel (8) - 12/08/16 11:14 Glucose, Serum 100 mg/dL 65-99 BUN 16 mg/dL 8-27 Creatinine, Serum 0.50 mg/dL 0.57-1.00 eGFR If NonAfricn Am 105 mL/min/1.73 >59 eGFR If Africn Am 121 mL/min/1.73 >59 BUN/Creatinine Ratio 32 11-26 Sodium, Serum 144 mmol/L 134-144 Potassium, Serum 4.4 mmol/L 3.5-5.2 Chloride, Serum 104 mmol/L 96-106 Carbon Dioxide, Total 25 mmol/L 18-29 Calcium, Serum 9.1 mg/dL 8.7-10.3 CULTURE, URINE - 08/31/17 10:11 CULTURE, URINE, ROUTINE SEE NOTE NRG CULTURE, URINE - 12/28/17 12:14 CULTURE, URINE, ROUTINE SEE NOTE NRG Encounters ACCT No. Visit Date/Time Discharge Status Pt. Type Provider Facility Loc./Unit Complaint [id number] 02/05/2015 08:29:00 02/05/2015 23:59:59 CLS Outpatient SAE ALMONTE DDS [id number] 01/28/2015 09:08:00 01/28/2015 23:59:59 CLS Outpatient ZACHARIAH TEMPLE APRN [id number] 01/27/2015 05:12:00 01/27/2015 23:59:59 CLS Outpatient [id number] 01/06/2015 09:52:00 01/06/2015 23:59:59 CLS Outpatient BHARAT MANCIA APRN [id number] 11/01/2014 10:30:00 11/01/2014 23:59:59 CLS Outpatient JHONATAN EWING APRN [id number] 10/07/2014 09:23:00 10/07/2014 23:59:59 CLS Outpatient JHONATAN EWING APRN [id number] 09/30/2014 09:44:00 09/30/2014 23:59:59 CLS Outpatient JHONATAN EWING APRN [id number] 09/30/2014 09:44:00 09/30/2014 23:59:59 CLS Outpatient AMELIA CURRIE DO [id number] 09/20/2014 09:34:00 09/20/2014 23:59:59 CLS Outpatient MADL ED TECH, JHONATAN L [id number] 09/02/2014 09:53:00 09/02/2014 23:59:59 CLS Outpatient MADL ED TECH, JHONATAN L [id number] 08/30/2014 09:56:00 08/30/2014 23:59:59 CLS Outpatient MADL ED TECH, JHONATAN L [id number] 08/30/2014 09:56:00 08/30/2014 23:59:59 CLS Outpatient MADL ED TECH, JHONATAN L [id number] 07/31/2014 09:55:00 07/31/2014 23:59:59 CLS Outpatient MAVERICK ED TECH, ZACHARIAH R [id number] 07/22/2014 11:05:00 07/22/2014 23:59:59 CLS Outpatient MADL ED TECH, JHONATAN L [id number] 07/09/2014 09:33:00 07/09/2014 23:59:59 CLS Outpatient MADL ED TECH, JHONATAN L [id number] 07/01/2014 12:29:00 07/01/2014 23:59:59 CLS Outpatient MADL ED TECH, JHONATAN L [id number] 06/28/2014 10:34:00 06/28/2014 23:59:59 CLS Outpatient MADL ED TECH, JHONATAN L [id number] 06/21/2014 09:52:00 06/21/2014 23:59:59 CLS Outpatient MADL ED TECH, JHONATAN L [id number] 06/21/2014 09:52:00 06/21/2014 23:59:59 CLS Outpatient CURRIE DOAMELIA [id number] 05/28/2014 09:34:00 05/28/2014 23:59:59 CLS Outpatient MADL ED TECH, JHONATAN L [id number] 05/24/2014 11:46:00 05/24/2014 23:59:59 CLS Outpatient MADL ED TECH, JHONATAN L [id number] 05/22/2014 13:24:00 05/22/2014 23:59:59 CLS Outpatient CURRIE DOAMELIA [id number] 05/22/2014 13:24:00 05/22/2014 23:59:59 CLS Outpatient MADL ED TECH, JHONATAN L [id number] 05/20/2014 08:38:00 05/20/2014 23:59:59 CLS Outpatient CURRIE DOAMELIA [id number] 05/02/2014 13:08:00 05/02/2014 23:59:59 CLS Outpatient CURRIE DOAMELIA [id number] 04/09/2014 06:41:00 04/09/2014 23:59:59 CLS Outpatient [id number] 03/22/2014 10:07:00 03/22/2014 23:59:59 CLS Outpatient JHONATAN EWING APRN [id number] 02/26/2014 10:03:00 02/26/2014 23:59:59 CLS Outpatient CURRIE DOAMELIA [id number] 02/26/2014 10:03:00 02/26/2014 23:59:59 CLS Outpatient CURRIE DOAMELIA [id number] 02/26/2014 08:44:00 02/26/2014 23:59:59 CLS Outpatient CHARITY FUCHS MARCI Gonsales [id number] 02/19/2014 08:39:00 02/19/2014 23:59:59 CLS Outpatient CURRIE DOAMELIA [id number] 02/06/2014 08:49:00 02/06/2014 23:59:59 CLS Outpatient ROSEY DOAMELIA [id number] 01/22/2014 08:32:00 01/22/2014 23:59:59 CLS Outpatient CURRIE DOAMELIA [id number] 12/06/2013 10:19:00 12/06/2013 23:59:59 CLS Outpatient ALLI HUNT MD [id number] 10/12/2013 09:23:00 10/12/2013 23:59:59 CLS Outpatient MAGDALENA EUCEDA MD [id number] 10/12/2013 09:23:00 10/12/2013 23:59:59 CLS Outpatient MAGDALENA EUCEDA MD [id number] 10/02/2013 14:34:00 10/02/2013 23:59:59 CLS Outpatient BAILEYMargarita GUTIERREZFELIBERTO Nelson [id number] 07/02/2013 13:38:00 07/02/2013 23:59:59 CLS Outpatient [id number] 01/16/2013 11:02:00 01/16/2013 23:59:59 CLS Outpatient [id number] 11/30/2012 09:14:00 11/30/2012 23:59:59 CLS Outpatient MAGDALENA EUCEDA MD [id number] 11/20/2012 11:53:00 11/20/2012 23:59:59 CLS Outpatient [id number] 10/18/2012 09:51:00 10/18/2012 23:59:59 CLS Outpatient MAGDALENA EUCEDA MD [id number] 10/18/2012 09:51:00 10/18/2012 23:59:59 CLS Outpatient MAGDALENA EUCEDA MD [id number] 09/14/2012 09:40:00 09/14/2012 23:59:59 CLS Outpatient MAGDALENA EUCEDA MD [id number] 07/12/2012 08:30:00 07/12/2012 23:59:59 CLS Outpatient MAGDALENA EUCEDA MD [id number] 04/17/2013 09:37:00 Document Registration [id number] 04/17/2013 09:37:00 Document Registration [id number] 03/09/2013 08:23:00 Document Registration [id number] 03/09/2013 08:23:00 Document Registration [id number] 02/21/2013 10:38:00 Document Registration [id number] 01/10/2013 09:31:00 Document Registration [id number] 01/10/2018 11:25:00 01/10/2018 23:59:59 CLS Preadmit MARY GRACE ORTEGA [facility] CARD I25.10 CAD [id number] 07/29/2017 20:36:00 07/29/2017 21:30:00 DIS Emergency COREY DIAL APRN [facility] ER DENTAL PAIN [id number] 06/20/2017 13:33:00 06/20/2017 14:25:00 DIS Emergency EVELINE PENG MD [facility] ER TOOTH ACHE [id number] 03/11/2017 09:20:00 03/11/2017 23:59:59 CLS Outpatient LATRELL HAWKINS MD [facility] RAD E04.1 [id number] 02/11/2017 09:45:00 02/11/2017 23:59:59 CLS Outpatient LATRELL HAWKINS MD [facility] CARD I25.10 [id number] 02/09/2017 13:30:00 02/09/2017 23:59:59 CLS Preadmit LATRELL HAWKINS MD [facility] CARD I25.10 [id number] 01/16/2017 09:06:00 01/16/2017 10:05:00 DIS Emergency ARMANDO CHAVIS, MIHAI Aiken [facility] ER L SIDE DENTAL PAIN [id number] 11/30/2016 11:25:00 11/30/2016 13:14:00 DIS Emergency DEBBIE CHAVIS, DENNYS Joel [facility] ER COUGH/RIB PAIN SHAKEY [id number] 04/29/2016 12:01:00 04/29/2016 23:59:59 CLS Outpatient BHARAT MANCIA [facility] RAD SCREENING [id number] 09/18/2015 21:24:00 09/18/2015 22:11:00 DIS Emergency COREY DIAL APRN [facility] ER L ARM PAIN [id number] 06/25/2015 10:53:00 06/25/2015 23:59:59 CLS Outpatient LATRELL HAWKINS MD [facility] CARD CAD,COPD [id number] 03/26/2015 08:00:00 03/26/2015 23:59:59 CLS Preadmit LATRELL HAWKINS MD [facility] CARD CAD,HTN,PALPITATIONS [id number] 02/27/2015 09:26:00 02/27/2015 23:59:59 CLS Outpatient LATRELL HAWKINS MD [facility] CARD CAD,HTN,PALPITATIONS [id number] 05/14/2014 17:58:00 05/14/2014 20:04:00 DIS Emergency OG FERNANDO DO [facility] ER BACK PAIN; CHEST PAIN [id number] 03/13/2014 10:07:00 03/13/2014 23:59:59 CLS Outpatient MARCI NASH ED TECH [facility] RAD ROUTINE [id number] 01/22/2014 15:12:00 01/22/2014 18:23:00 DIS Emergency COREY DIAL APRN [facility] ER L ARM PAIN [id number] 12/12/2013 10:10:00 12/12/2013 23:59:59 CLS Outpatient ALLI HUNT MD [facility] RAD LESION RT THY [id number] 11/08/2013 14:59:00 11/08/2013 23:59:59 CLS Outpatient [id number] 05/01/2013 12:57:00 05/01/2013 23:59:59 CLS Outpatient ALLI HUNT MD [facility] RAD MULTIPLE PULM NODULES ,FOLLOW-UP [id number] 02/18/2015 12:58:00 Document Registration [id number] 02/18/2015 12:58:00 Document Registration [id number] 02/18/2015 12:58:00 Document Registration [id number] 02/18/2015 12:58:00 Document Registration [id number] 02/18/2015 12:57:00 Document Registration [id number] 02/18/2015 12:57:00 Document Registration [id number] 02/18/2015 12:57:00 Document Registration [id number] 02/01/2013 08:26:00 Document Registration [id number] 01/18/2013 09:47:00 Document Registration [id number] 12/14/2012 09:48:00 Document Registration [id number] 03/12/2011 08:11:00 Document Registration [id number] 12/29/2010 09:44:00 Document Registration [id number] 11/08/2010 10:12:00 Document Registration [id number] 10/20/2010 09:44:00 Document Registration [id number] 08/17/2010 12:10:00 Document Registration [id number] 02/02/2010 12:03:00 Document Registration [id number] 11/05/2009 10:14:00 Document Registration [id number] 06/26/2015 05:40:55 ACT Document Registration [id number] 12/09/2016 08:44:00 Document Registration [id number] 01/19/2018 09:55:00 01/19/2018 23:59:59 CLS Outpatient BHARAT MANCIA APRN [facility] [id number] 12/28/2017 11:20:00 Document Registration [id number] 08/31/2017 10:00:00 Document Registration
--- NOTE | 2018-01-22 11:01 | ED GU-Female ---
General Chief Complaint: -Female Stated Complaint: BLOOD IN URINE Source: patient Exam Limitations: no limitations History of Present Illness Date Seen by Provider: Jan 22, 2018 Time Seen by Provider: 10:50 Initial Comments Here with report of blood in the urine today. Patient is on Coumadin. She reports pain with urination. She is currently on clindamycin for teeth problems. Denies breathing problems, vomiting or diarrhea. Denies bleeding otherwise. Timing/Duration: this morning Severity/Quality: moderate, other (pain) Location: urethral Radiation: none Activities at Onset: none Prior Genitourinary Problems: none Sexual Kulm History: not active Modifying Factors: Improves With Resting, Worsens With Urinating Associated Symptoms: dysuria, No fever/chills, No lower back pain, No nausea/ vomiting, urinary frequency Allergies and Home Medications Allergies Coded Allergies: Iodinated Contrast Media - Oral and (Verified Allergy, Unknown, 05/28/06) Penicillins (Verified Allergy, Unknown, 05/29/06) tramadol (Unverified Allergy, Unknown, 01/22/14) vancomycin (Verified Allergy, Unknown, 05/29/06) Home Medications Albuterol Sulfate 6.7 Gm Hfa.aer.ad, 2 PUFF IH Q6H PRN for SHORTNESS OF BREATH, (Reported) Aspirin 325 Mg Tab, 325 MG PO DAILY, (Reported) Cefprozil 250 Mg Tablet, 1 TAB PO BID Prescribed by: OG FERNANDO on 05/14/141999 Cephalexin 500 Mg Tablet, 500 MG PO TID Prescribed by: EVELINE PENG on 06/20/17 141 Esomeprazole Mag Trihydrate 40 Mg Capsule.dr, 40 MG PO DAILY, (Reported) Furosemide 40 Mg Tablet, 40 MG PO DAILY, (Reported) Hydrocodone Bit/Acetaminophen 1 Each Tablet, 1-2 EACH PO Q6H PRN for PAIN- MODERATE Prescribed by: EVELINE PENG on 06/20/17 141 Metoprolol Succinate 25 Mg Tab.sr.24h, 25 MG PO DAILY, (Reported) Warfarin Sodium 3 Mg Tablet, 9 MG PO DAILY EXCEPT WOLFF/TU, (Reported) 12 mg on WOLFF-TU Warfarin Sodium 3 Mg Tablet, 12 MG PO ON SUN-TUES, (Reported) [Albuteral Inhaler] , NEEDED, (Reported) Patient Home Medication List Home Medication List Reviewed: Yes Review of Systems Constitutional: see HPI, No chills, No fever EENTM: no symptoms reported Respiratory: no symptoms reported Cardiovascular: no symptoms reported Gastrointestinal: No nausea, No vomiting Genitourinary: no symptoms reported Musculoskeletal: no symptoms reported Skin: no symptoms reported, No change in color All Other Systemes Reviewed Negative Unless Noted: Yes Past Fxwznek-Cmrwdc-Gxrkdu Hx Patient Social History Alcohol Use: Denies Use Recreational Drug Use: No Smoking Status: Former Smoker Type Used: Cigarettes Former Smoker, Quit: Jan 15, 1974 Recent Foreign Travel: No Contact w/Someone Who Travel: No Recent Hopitalizations: No Immunizations Up To Date Tetanus Booster (TDap): Unknown Past Medical History Surgeries: Yes Appendectomy, CABG, Tubal Ligation, Valve Replacement Respiratory: Yes Asthma, Chronic Bronchitis, COPD Cardiac: Yes Coronary Artery Disease, Hypertension, Valvular Heart Disease Neurological: No Reproductive Disorders: No UTI-Chronic Gastrointestinal: Yes Gastroesophageal Reflux, Hiatal Hernia Musculoskeletal: Yes Arthritis, Rheumatoid Arthritis Endocrine: No Cancer: No Psychosocial: No Integumentary: No Blood Disorders: No Family Medical History Reviewed Nursing Family Hx No Pertinent Family Hx Physical Exam Vital Signs Vital Signs - First Documented 01/22/18 10:45 Temp 99.2 Pulse 86 Resp 18 B/P (MAP) 115/58 (77) Pulse Ox 95 Capillary Refill : General Appearance: WD/WN, no apparent distress Neck: full range of motion, supple Cardiovascular: regular rate, rhythm, systolic murmur Respiratory: lungs clear, normal breath sounds Gastrointestinal: non tender, soft Back: normal inspection, no CVA tenderness, no vertebral tenderness Extremities: non-tender, normal inspection Neurologic/Psychiatric: alert, oriented x 3 Skin: normal color, warm/dry Progress/Results/Core Measures Suspected Sepsis SIRS Temperature: Pulse: Respiratory Rate: Laboratory Tests 01/22/18 11:05: White Blood Count 10.4 Blood Pressure / Mean: Laboratory Tests 01/22/18 11:05: INR Comment 2.1H, Platelet Count 273 Results/Orders Lab Results Laboratory Tests Test 01/22/18 10:57 01/22/18 11:05 Range/Units Urine Color RED H Urine Clarity BLOODY H Urine pH 6.5 5-9 Urine Specific [place] 1.020 1.016-1.022 Urine Protein 4+ NEGATIVE Urine Glucose (UA) NEGATIVE NEGATIVE Urine Ketones 1+ H NEGATIVE Urine Nitrite NEGATIVE NEGATIVE Urine Bilirubin NEGATIVE NEGATIVE Urine Urobilinogen NORMAL NORMAL MG/DL Urine Leukocyte Esterase 1+ H NEGATIVE Urine RBC (Auto) 5+ H NEGATIVE Urine RBC TNTC H /HPF Urine WBC >100 H /HPF Urine Crystals NONE /LPF Urine Bacteria LARGE H /HPF Urine Casts NONE /LPF Urine Mucus LARGE H /LPF Urine Culture Indicated YES White Blood Count 10.4 4.3-11.0 10^3/uL Red Blood Count 4.41 4.35-5.85 10^6/uL Hemoglobin 12.6 11.5-16.0 G/DL Hematocrit 38 35-52 % Mean Corpuscular Volume 86 80-99 FL Mean Corpuscular Hemoglobin 29 25-34 PG Mean Corpuscular Hemoglobin Concent 33 32-36 G/DL Red Cell Distribution Width 14.4 10.0-14.5 % Platelet Count 273 130-400 10^3/uL Mean Platelet Volume 11.1 H 7.4-10.4 FL Neutrophils (%) (Auto) 65 42-75 % Lymphocytes (%) (Auto) 21 12-44 % Monocytes (%) (Auto) 7 0-12 % Eosinophils (%) (Auto) 6 0-10 % Basophils (%) (Auto) 1 0-10 % Neutrophils # (Auto) 6.7 1.8-7.8 X 10^3 Lymphocytes # (Auto) 2.2 1.0-4.0 X 10^3 Monocytes # (Auto) 0.7 0.0-1.0 X 10^3 Eosinophils # (Auto) 0.7 H 0.0-0.3 10^3/uL Basophils # (Auto) 0.1 0.0-0.1 10^3/uL Prothrombin Time 23.7 H 12.2-14.7 SEC INR Comment 2.1 H 0.8-1.4 My Orders Orders - EVELINE PENG MD Ua Culture If Indicated (01/22/18 10:51) Cbc With Automated Diff (01/22/18 10:52) Protime With Inr (01/22/18 10:52) Urine Culture (01/22/18 10:57) Cephalexin Capsule (Keflex Capsule) (01/22/18 11:57) Vital Signs/I&O 01/22/18 10:45 Temp 99.2 Pulse 86 Resp 18 B/P (MAP) 115/58 (77) Pulse Ox 95 Capillary Refill : Progress Note : Progress Note Seen and evaluated. UA ordered. Due to the history of warfarin use, we will get PT with INR and CBC. 1200: UA positive. Review of history shows patient has Escherichia coli historical he that is susceptible to cephalosporins. Cephalexin 500 mg by mouth initiated and we will continue this for 7 days. Discharged home with return precautions. Patient verbalize understanding instructions and agreement with plan. Departure Impression Primary Impression: UTI (urinary tract infection) Qualified Codes: N30.01 - Acute cystitis with hematuria Disposition: HOME, SELF-CARE Condition: Stable Departure-Patient Inst. Decision time for Depature: 12:09 [place]: [facility] [place] Primary Care Physician Patient Instructions: Urinary Tract Infection, Adult (DC) Add. Discharge Instructions: All discharge instructions reviewed with patient and/or family. Voiced understanding. Take medications as directed. Follow-up with your Dr. in a few days for recheck. Return for worse pain, fever, vomiting, weakness, breathing problems or other concerns as needed. Scripts Cephalexin (Cephalexin) 500 Mg Tablet 500 MG PO BID, #13 TAB 0 Refills Prov: EVELINE PENG MD 01/22/18 EVELINE PENG MD Jan 22, 2018 11:01
[2018-01-22 11:05] LABS: BILIRUBIN,URINE NEGATIVE (NEGATIVE); CLARITY,URINE BLOODY; COLOR,URINE RED; GLUCOSE, URINE (UA) NEGATIVE (NEGATIVE); KETONES,URINE 1+ (NEGATIVE); LEUKOCYTE ESTERASE ,URINE 1+ (NEGATIVE); NITRITE,URINE NEGATIVE (NEGATIVE); PH,URINE 6.5 (5-9); PROTEIN,URINE 4+ (NEGATIVE); UROBILINOGEN,URINE NORMAL (NORMAL)
[2018-01-22 11:23] LABS: RBC,URINE TNTC /HPF
[2018-01-22 11:25] LABS: BACTERIA,URINE LARGE /HPF; WBC,URINE >100 /HPF
[2018-01-22 11:38] LABS: INR 2.1 (0.8-1.4); PROTHROMBIN TIME PATIENT 23.7 SEC (12.2-14.7)
[2018-01-22 11:40] LABS: BASOPHILS # (AUTO) 0.1 10^3/uL (0.0-0.1); BASOPHILS % (AUTO) 1 % (0-10); EOSINOPHILS # (AUTO) 0.7 10^3/uL (0.0-0.3); EOSINOPHILS % (AUTO) 6 % (0-10); HEMATOCRIT 38 % (35-52); HEMOGLOBIN 12.6 G/DL (11.5-16.0); LYMPHOCYTES # (AUTO) 2.2 X 10^3 (1.0-4.0); LYMPHOCYTES % (AUTO) 21 % (12-44); MEAN CORPUSCULAR HEMOGLOBIN 29 PG (25-34); MEAN CORPUSCULAR HGB CONC 33 G/DL (32-36); MEAN CORPUSCULAR VOLUME 86 FL (80-99); MEAN PLATELET VOLUME 11.1 FL (7.4-10.4); MONOCYTES # (AUTO) 0.7 X 10^3 (0.0-1.0); MONOCYTES % (AUTO) 7 % (0-12); NEUTROPHILS # (AUTO) 6.7 X 10^3 (1.8-7.8); NEUTROPHILS % (AUTO) 65 % (42-75); PLATELET COUNT 273 10^3/uL (130-400); RED BLOOD COUNT 4.41 10^6/uL (4.35-5.85); RED CELL DISTRIBUTION WIDTH 14.4 % (10.0-14.5); WHITE BLOOD COUNT 10.4 10^3/uL (4.3-11.0)
[2018-01-22] MEDS ORDERED: CEPHALEXIN 250 MG (KEFLEX) CAP PO STA (11:57)
[2018-01-22] MEDS ORDERED: CEPH500T PO (12:11)
[2018-01-22 12:17] VITALS: BP 115/58
== END 2018-01-22 12:12 | disposition home or self-care (01) ==
LOC: EDUNIT# 10:42 → ER 10:43
DX: N39.0 Urinary tract infection, site not specified (principal); K21.9 Gastro-esophageal reflux disease without esophagitis; M06.9 Rheumatoid arthritis, unspecified; I25.10 Atherosclerotic heart disease of native coronary artery without angina pectoris; I10 Essential (primary) hypertension; J44.9 Chronic obstructive pulmonary disease, unspecified; Z98.51 Tubal ligation status; Z95.5 Presence of coronary angioplasty implant and graft; Z95.2 Presence of prosthetic heart valve; Z87.891 Personal history of nicotine dependence; Z79.01 Long term (current) use of anticoagulants; Z79.82 Long term (current) use of aspirin; Z88.0 Allergy status to penicillin; Z88.1 Allergy status to other antibiotic agents; Z88.6 Allergy status to analgesic agent; Z91.041 Radiographic dye allergy status
CPT/HCPCS: 36415; 81000; 85025; 85610; 87088; 87186; 99283

== ENCOUNTER 2018-02-11 09:57 | Emergency (ER) | payer MEDICARE, MEDICAID ==
[~2018-02-11] VITALS: Ht 180.3 cm; Wt 88.9 kg
--- OUTSIDE RECORDS SUMMARY | 2018-02-11 10:06 | XMS REPORT ---
Author Author MAGDALENA NEGRO [facility] Address [address] [place] [address] Care Team Providers Care Dust Sampler Name Role Phone MAGDALENA NEGRO Unavailable PROBLEMS Type Condition ICD9-CM Code BCO48-FW Code Onset Dates Condition Status SNOMED Code Problem Essential (primary) hypertension I10 Active 79400723 Problem Heart valve disorder I38 Active 522269 Problem Breast cancer screening Z12.39 Active 328131844 Problem Gastroesophageal reflux disease with esophagitis K21.0 Active 008615704 Problem Nocturnal hypoxia G47.34 Active 518671240 Problem Aortic valve stenosis, unspecified etiology I35.0 Active 61136691 Problem Essential hypertension I10 Active 28798609 Problem Stress incontinence N39.3 Active 46738077 Problem Hyperlipidemia, unspecified hyperlipidemia type E78.5 Active 88260434 Problem Hyperglycemia R73.9 Active 03171674 Problem COPD (chronic obstructive pulmonary disease) J44.9 Active 32925240 Problem Mixed stress and urge urinary incontinence N39.46 Active 796984186 Problem care home (current) use of anticoagulants Z79.01 Active 087192240 Problem Thyroid nodule, cold E04.1 Active 039334604 Problem 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 Active [id number] ALLERGIES No Information ENCOUNTERS Encounter Location Date Diagnosis [facility] [address] [facility] [id number] [address] Jan, Encounter for immunization Z23 ; Medicare annual wellness visit, initial Z00.00 ; Dysuria R30.0 ; COPD (chronic obstructive pulmonary disease) J44.9 ; Essential (primary) hypertension I10 ; Breast cancer screening Z12.39 ; Aortic valve stenosis, unspecified etiology I35.0 ; Hyperlipidemia, unspecified hyperlipidemia type E78.5 ; Gastroesophageal reflux disease with esophagitis K21.0 ; gold layer (current) use of anticoagulants Z79.01 and Colon cancer screening Z12.11 [facility] [id number] [place] [address] 00795 -4849 05 Jan, 2018 Dental infection K04.7 [place] [address] [address]80- 95[address] Jan, [facility] [id number] [place] [address] 82960- 2232 Dec, Essential hypertension I10 and 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 [facility] [address] 24123- 4288 Dec, [place] [address] 18574- 2302 Dec, Urinary tract infection, site not specified N39.0 [place] [id number] [place] [address] 25671- 7794 Dec, Cough R05 ; Dysuria R30.0 ; care home (current) use of anticoagulants Z79.01 ; 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 and Urinary tract infection without hematuria, site unspecified N39.0 [facility] [id number] [place] [address] 82583 -5129 Dec, Seasonal allergic rhinitis, unspecified trigger J30.2 [place] [id number] [place] [address] 38198- 8893 Nov, [facility] [id number] [place] [address] 07027- 8815 Nov, Mixed stress and urge urinary incontinence N39.46 [place] [id number] [place] [address] 70762- 8285 Nov, [place] [id number] [place] [address] 77879- 4362 Nov, [facility] [id number] [place] [address] 24226 -4133 Nov, Gastroesophageal reflux disease with esophagitis K21.0 [facility] [id number] [place] [address] 65997 -9227 02 Nov, 2017 Upper respiratory infection, acute J06.9 and Post-nasal drainage R09.82 [place] [id number] [place] [address] 75112- 4267 Oct, COPD (chronic obstructive pulmonary disease) J44.9 and Nocturnal hypoxia G47.34 [place] [address] 41460- 9410 Oct, [place] [address] 08622- 5621 Oct, Stress incontinence N39.3 ; COPD (chronic obstructive pulmonary disease) J44.9 and gold layer (current) use of anticoagulants Z79.01 [place] [address] 45006- 5052 Oct, [place] [id number] [place] [address] 57805- 8761 Sep, Nasal congestion R09.81 [place] [address] 16841- 3615 Sep, [facility] [place] [id number] [place] [address] 92390 -4109 24 Aug, 2017 Other viral agents as the cause of diseases classified elsewhere B97.89 ; Acute upper respiratory infection, unspecified J06.9 and BMI 40.0-44.9, adult Z68.41 [place] [id number] [place] [address] 97151- 1720 15 Aug, 2017 Dysuria R30.0 ; Urinary tract infection, site not specified N39.0 ; Hematuria, unspecified R31.9 and Stress incontinence N39.3 [facility] [id number] [place] [address] 45492 -5345 Jul, Oral abscess K12.2 [address] [place] [address]- [address] Jul, [facility] [id number] [address] 8[address] Jul, [facility] [address] [id number] [id number] Jun, Dental examination Z01.20 [facility] [place] [address] [id number] [place] [id number] Jun, [facility] [place] [address] [id number] [place] [id number] Jun, [facility] [id number] [place] [address] 80233- 7209 May, Plantar fasciitis of right foot M72.2 [facility] [id number] [address] 9[address] May, [facility] [id number] [place] [address] 94685 -3625 Apr, Acute upper respiratory infection, unspecified J06.9 and Seasonal allergic rhinitis, unspecified chronicity, unspecified trigger J30.2 [facility] [address] [address] 9[address] Mar, Plantar fasciitis of right foot M72.2 and Bursitis of right foot M71.571 [facility] [id number] [address] Mar, Acute seasonal allergic rhinitis, unspecified trigger J30.2 [facility] [id number] [address] February, Acute upper respiratory infection, unspecified J06.9 [facility] [address] [address] February, [facility] [address] [address] 0072 February, [facility] [id number] [place] [address] 53835- 2302 Jan, Right foot pain M79.671 and gold layer (current) use of anticoagulants Z79.01 [facility] [id number] [place] [address] [id number] Jan, Dental caries K02.9 [facility] [address] 76359- 5576 Jan, [facility] [address] 31605- 3688 Jan, [facility] [address] 14931- 9575 Jan, care home (current) use of anticoagulants Z79.01 [facility] [address] 13183- 8448 Jan, [place] [address] 56132- 6913 Jan, 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 ; Aortic valve stenosis, unspecified etiology I35.0 ; Essential hypertension I10 and Hyperlipidemia, unspecified hyperlipidemia type E78.5 [place] [id number] [place] [address] 32150- 7326 Jan, Dental examination Z01.20 [facility] [id number] [place] [address] 64463 -6693 Jan, Tooth abscess K04.7 and Abscess of mouth K12.2 [facility] [id number] [place] [address] 86656- 1910 Dec, [place] [address] 63698- 3334 Dec, Cough R05 [facility] [id number] [place] [address] 54037- 5130 Dec, [facility] [address] 69063 -0855 Dec, Dental abscess K04.7 [facility] [id number] [place] [address] 96936- 5392 Nov, gold layer (current) use of anticoagulants Z79.01 and Hypokalemia E87.6 [facility] [id number] [place] [address] 85543- 4432 Nov, gold layer (current) use of anticoagulants Z79.01 [place] [address] 26451- 6995 Nov, gold layer (current) use of anticoagulants Z79.01 ; Hyperglycemia R73.9 ; Hypokalemia E87.6 and Heart valve disorder I38 [facility] [address] 19645 -7185 Nov, Pain of right heel M79.671 [place] [address] 24759- 3198 Sep, Back pain M54.9 [place] [address] 03370- 7299 Sep, [place] [address] 29660- 7627 Sep, Back pain M54.9 [place] [id number] [place] [address] 45365- 9469 Aug, Nasal congestion R09.81 [place] [address] [id number] [place] [address] 64571- 0367 Aug, [facility] [address] 76864 -6978 Aug, Acute non-recurrent frontal sinusitis J01.10 [place] [id number] [place] [address] 39129- 6697 Jul, [place] [address] 31036- 7758 Jul, [facility] [address] [address] 1731 Jun, [facility] [id number] [place] [address] 27804- 7269 Jun, [facility] [id number] [place] [address] 69121- 4809 May, [facility] [id number] [place] [address] 61245- 0033 May, [place] [address] [id number] [place] [address] May care home (current) use of anticoagulants Z79.01 [facility] [id number] [place] [address] 58619- 8827 Apr, care home (current) use of anticoagulants Z79.01 [facility] [id number] [place] [address] 11010- 7307 Apr, [facility] [id number] [place] [address] 98357- 5352 Apr, [facility] [id number] [place] [address] 90330- 3139 Apr, Hyperglycemia R73.9 and Breast cancer screening Z12.39 [facility] [id number] [place] [address] 89521- 1182 Mar, [facility] [id number] [place] [address] 75451 -5869 Mar, Left foot pain M79.672 [facility] [id number] [place] [address] 13279 -0721 February, Dysuria R30.0 [facility] [id number] [place] [address] 24282- 8571 February, care home (current) use of anticoagulants Z79.01 [facility] [id number] [place] [address] 94481- 2086 February, gold layer (current) use of anticoagulants Z79.01 [facility] [id number] [place] [address] 71187- 9964 February, [facility] [id number] [place] [address] 09119- 3623 February, care home (current) use of anticoagulants Z79.01 [place] [id number] [place] [address] 06451- 9018 February, gold layer (current) use of anticoagulants Z79.01 [place] [id number] [place] [address] 22940- 9395 Jan, [facility] [id number] [place] [address] 16820- 6762 Jan, [facility] [id number] [place] [address] 75594 -6646 Jan, Allergic rhinitis J30.9 ; Cough R05 and Stress incontinence N39.3 [place] [id number] [place] [address] 21405- 5028 Jan, gold layer (current) use of anticoagulants Z79.01 [place] [id number] [place] [address] 12962- 1054 Jan, gold layer (current) use of anticoagulants Z79.01 [place] [id number] [place] [address] 09876- 4441 Dec, gold layer (current) use of anticoagulants Z79.01 ; 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 and Essential (primary) hypertension I10 [place] [id number] [place] [address] 64104- 1058 Dec, COPD (chronic obstructive pulmonary disease) J44.9 [place] [id number] [place] [address] 92560- 7936 Dec, [place] [id number] [place] [address] 36200- 4873 Dec, [facility] [id number] [place] [address] 59294- 6079 Dec, Hyperglycemia R73.9 ; COPD (chronic obstructive pulmonary disease) J44.9 ; gold layer current use of anticoagulant therapy V58.61 and Back pain M54.9 [facility] [id number] [place] [address] 73534- 2079 Nov, [facility] [id number] [place] [address] 20216- 0570 Nov, [facility] [address] 99279- 5734 Oct, [facility] [id number] [place] [address] 49617- 8037 Oct, [facility] [id number] [place] [address] 09791- 9125 Oct, [facility] [id number] [place] [address] 78024 -1553 Sep, Bronchitis J40 [facility] [id number] [place] [address] 74380- 5955 Sep, [facility] [id number] [place] [address] 88444- 6071 Aug, [facility] [id number] [place] [address] 81810- 9258 Aug, [facility] [address] [place] [address] 81094- 8412 Jul, [facility] [id number] [place] [address] [id number] Jul, Encounter for dental examination Z01.20 [facility] [id number] [place] [address] 17452- 4612 Jul, Ear pain, right H92.01 ; High risk medication use Z79.899 and Back pain, unspecified back pain laterality, unspecified location M54.9 [facility] [address] [address]- 8247 Jul, Meningitis contact Z20.89 [facility] [address] [address]- 4302 Jul, [facility] [id number] [place] [address] 46635- 4461 Jul, [facility] [id number] [place] [address] 63443- 3905 Jul, [facility] [id number] [place] [address] 12572- 7916 May, [facility] [id number] [place] [address] 01685- 8312 May, [facility] [id number] [place] [address] 16898- 2685 Apr, gold layer current use of anticoagulant therapy V58.61 ; CAD (coronary artery disease) 414.00 ; Constipation 564.00 and Back pain 724.5 [place] [address] [place] [address] 62812- 5160 Apr, [facility] [address] [address]- 7417 Apr, [facility] [address] [place] [address] 60326- 7070 Apr, care home current use of anticoagulant therapy V58.61 ; Constipation 564.00 ; Back pain 724.5 and CAD (coronary artery disease) 414.00 [facility] [id number] [place] [address] 02468- 1070 Apr, [facility] [address] [address]- 5306 Mar, [facility] [id number] [place] [address] 99233- 4300 Mar, [facility] [place] [facility] [address] [id number] [place] [address]- 6868 February, [facility] [place] [facility] [address] [id number] [place] [address]- 1918 February, [facility] [place] [facility] [address] [id number] [place] [address]- 1642 Jan, [facility] [place] [facility] [address] [id number] [place] [address]- 2129 Jan, [facility] [place] [facility] [address] [id number] [place] [address]- 1091 Dec, [facility] [place] [facility] [address] [id number] [place] [address]- 5076 Dec, [facility] [place] [facility] [address] [id number] [place] [address]- 6380 Dec, [facility] [place] [facility] [address] [id number] [place] [address]- 6512 Dec, [facility] [place] [facility] [address] [id number] [place] [address]- 3127 Dec, [facility] [place] [facility] [address] [id number] [place] [address]- 3305 Dec, [facility] [place] [facility] [address] [id number] [place] [address]- 3901 Dec, [facility] [place] [facility] [address] [id number] [place] [address]- 4602 Dec, [facility] [place] [facility] [address] [id number] [place] [address]- 7397 Dec, [facility] [place] [facility] [address] [id number] [place] [address]- 0255 Dec, [facility] [place] [facility] [address] [id number] [place] [address]- 7242 Dec, [facility] [place] [facility] [address] [id number] [place] [address]- 6157 17 Dec, 2014 [facility] [place] [facility] [address] [id number] [place] [address]- 4285 16 Dec, 2014 [facility] [place] [facility] [address] [id number] [place] [address]- 6096 16 Dec, 2014 [facility] [place] [facility] [address] [id number] [place] [address]- 8429 Dec, 2014 [facility] [place] [facility] [address] [id number] [place] [address]- 5655 12 Dec, 2014 [facility] [place] [facility] [address] [id number] [place] [address]- 9995 Dec, 2014 [facility] [place] [facility] [address] [id number] [place] [address]- 7141 06 Dec, 2014 [facility] [place] [facility] [address] [id number] [place] [address]- 0035 04 Dec, 2014 [facility] [place] [facility] [address] [id number] [place] [address]- 7579 Dec, [facility] [place] [facility] [address] [id number] [place] [address]- 9230 Dec, [facility] [place] [facility] [address] [id number] [place] [address]- 7392 Nov, 2014 [facility] [place] [facility] [address] [id number] [place] [address]- 8118 Nov, 2014 [facility] [place] [facility] [address] [id number] [place] [address]- 4974 Nov, 2014 [facility] [place] [facility] [address] [id number] [place] [address]- 9852 Nov, 2014 [facility] [place] [facility] [address] [id number] [place] [address]- 7815 Nov, 2014 [facility] [place] [facility] [address] [id number] [place] [address]- 4362 20 Nov, 2014 [facility] [place] [facility] [address] [id number] [place] [address]- 8384 19 Nov, 2014 [facility] [place] [facility] [address] [id number] [place] [address]- 1231 18 Nov, 2014 [facility] [place] [facility] [address] [facility] [id number] [place] [address]- 5133 18 Nov, 2014 [facility] [place] [facility] [address] [id number] [place] [address]- 2739 18 Nov, 2014 [facility] [place] [facility] [address] [facility] [id number] [place] [address]- 6228 Nov, 2014 [facility] [place] [facility] [address] [facility] [id number] [place] [address]- 3470 Nov, 2014 [facility] [place] [facility] [address] [facility] [id number] [place] [address] Nov, 2014 [facility] [place] [facility] [address] [facility] [id number] [place] [address] 16 Nov, 2014 [facility] [place] [facility] [address] [facility] [id number] [place] [address] 16 Nov, 2014 [facility] [place] [facility] [address] [facility] [id number] [place] [address] Nov, [facility] [place] [facility] [address] [facility] [id number] [place] [address] Nov, 2014 [facility] [place] [facility] [address] [facility] [id number] [place] [address] Oct, [facility] [place] [facility] [address] [facility] [id number] [place] [address] Oct, [facility] [place] [facility] [address] [facility] [id number] [place] [address] Oct, [facility] [place] [facility] [address] [facility] [id number] [place] [address] Oct, [facility] [place] [facility] [address] [id number] [place] [address] Oct, [facility] [place] [facility] [address] [id number] [place] [address] Oct, [facility] [place] [facility] [address] [id number] [place] [address] Sep, [facility] [place] [facility] [address] [id number] [place] [address] Sep, [facility] [place] [facility] [address] [id number] [place] [address] Sep, [facility] [place] [facility] [address] [id number] [place] [address] Sep, [facility] [place] [facility] [address] [id number] [place] [address] Sep, [facility] [place] [facility] [address] [id number] [place] [address] Sep, [facility] [place] [facility] [address] [id number] [place] [address] Sep, [facility] [place] [facility] [address] [id number] [place] [address] Sep, [facility] [place] [facility] [address] [id number] [place] [address] Sep, [facility] [place] [facility] [address] [id number] [place] [address] Sep, [facility] [place] [facility] [address] [id number] [place] [address] Aug, [facility] [place] [facility] [address] [id number] [place] [address] Aug, [facility] [place] [facility] [address] [id number] [place] [address] Aug, [facility] [place] [facility] [address] [id number] [place] [address] Aug, [facility] [place] [facility] [address] [id number] [place] [address] Aug, [facility] [place] [facility] [address] [id number] [place] [address] Aug, [facility] [place] [facility] [address] [id number] [place] [address] Aug, [facility] [place] [facility] [address] [id number] [place] [address] Aug, [facility] [place] [facility] [address] [id number] [place] [address] Jul, [facility] [place] [facility] [address] [id number] [place] [address] Jul, [facility] [place] [facility] [address] [id number] [place] [address] Jul, [facility] [place] [facility] [address] [id number] [place] [address] Jul, [facility] [place] [facility] [address] [facility] [id number] [place] [address] Jul, [facility] [place] [facility] [address] [facility] [id number] [place] [address] Jul, [facility] [place] [facility] [address] [id number] [place] [address] Jul, [facility] [place] [facility] [address] [id number] [place] [address] Jul, [facility] [place] [facility] [address] [id number] [place] [address] 7534 24 Jun, 2014 [facility] [place] [facility] [address] [id number] [place] [address] 1558 24 Jun, 2014 [facility] [place] [facility] [address] [id number] [place] [address]- 7504 23 Jun, 2014 [facility] [place] [facility] [address] [id number] [place] [address]- 8673 23 Jun, 2013 [facility] [place] [facility] [address] [id number] [place] [address]- 4386 23 Jun, 2013 [facility] [place] [facility] [address] [id number] [place] [address] 2546 23 Jun, 2013 [facility] [place] [facility] [address] [id number] [place] [address] 2546 22 Jun, 2013 [facility] [place] [facility] [address] [id number] [place] [address]- 2549 22 Jun, 2013 [facility] [place] [facility] [address] [id number] [place] [address]- 2789 22 Jun, 2013 [facility] [place] [facility] [address] [id number] [place] [address]- 8633 22 Jun, 2013 [facility] [place] [facility] [address] [id number] [place] [address]- 3852 15 Jun, 2013 [facility] [place] [facility] [address] [id number] [place] [address] 2542 15 Jun, 2013 [facility] [place] [facility] [address] [id number] [place] [address]- 5369 12 Jun, 2013 [facility] [place] [facility] [address] [id number] [place] [address]- 9366 12 Jun, 2014 [facility] [place] [facility] [address] [id number] [place] [address]- 254 05 Jun, 2013 [facility] [place] [facility] [address] [id number] [place] [address]- 2549 05 Jun, 2014 [facility] [place] [facility] [address] [id number] [place] [address]- 3746 May, [facility] [place] [facility] [address] [id number] [place] [address]- 8891 May, [facility] [place] [facility] [address] [id number] [place] [address]- 7999 May, [facility] [place] [facility] [address] [id number] [place] [address]- 7023 May, [facility] [place] [facility] [address] [id number] [place] [address]- 8460 May, [facility] [place] [facility] [address] [id number] [place] [address]- 7799 May, [facility] [place] [facility] [address] [id number] [place] [address]- 8117 May, [facility] [place] [facility] [address] [id number] [place] [address]- 2101 May, [facility] [place] [facility] [address] [id number] [place] [address]- 6603 May, [facility] [place] [facility] [address] [id number] [place] [address]- 0641 May, [facility] [place] [facility] [address] [id number] [place] [address]- 4533 May, [facility] [place] [facility] [address] [id number] [place] [address]- 2862 May, [facility] [place] [facility] [address] [id number] [place] [address]- 0262 May, [facility] [place] [facility] [address] [id number] [place] [address]- 9645 May, [facility] [place] [facility] [address] [id number] [place] [address]- 7987 May, [facility] [place] [facility] [address] [id number] [place] [address]- 7438 Apr, [facility] [place] [facility] [address] [id number] [place] [address]- 0426 Apr, [facility] [place] [facility] [address] [id number] [place] [address]- 4474 Apr, [facility] [place] [facility] [address] [id number] [place] [address]- 5943 Apr, [facility] [place] [facility] [address] [id number] [place] [address]- 0939 Apr, [facility] [place] [facility] [address] [id number] [place] [address]- 6056 Apr, [facility] [place] [facility] [address] [id number] [place] [address]- 9682 Apr, [facility] [place] [facility] [address] [id number] [place] [address]- 0193 Apr, [facility] [place] [facility] [address] [id number] [place] [address]- 4848 Apr, [facility] [place] [facility] [address] [id number] [place] [address]- 0603 Apr, [facility] [place] [facility] [address] [id number] [place] [address]- 8316 Apr, [facility] [place] [facility] [address] [id number] [place] [address]- 0246 Apr, [facility] [place] [facility] [address] [id number] [place] [address]- 0292 Apr, [facility] [place] [facility] [address] [id number] [place] [address]- 1284 Apr, [facility] [place] [facility] [address] [id number] [place] [address]- 0810 Mar, [facility] [place] [facility] [address] [id number] [place] [address]- 0359 Mar, [facility] [place] [facility] [address] [id number] [place] [address]- 4959 Mar, [facility] [place] [facility] [address] [id number] [place] [address]- 3792 Mar, [facility] [place] [facility] [address] [id number] [place] [address]- 2133 Mar, [facility] [place] [facility] [address] [id number] [place] [address]- 5185 Mar, [facility] [place] [facility] [address] [id number] [place] [address]- 0267 Mar, [facility] [place] [facility] [address] [id number] [place] [address]- 4775 Mar, [facility] [place] [facility] [address] [id number] [place] [address]- 7127 Mar, [facility] [place] [facility] [address] [id number] [place] [address]- 7090 February, [facility] [place] [facility] [address] [id number] [place] [address]- 0563 February, [facility] [place] [facility] [address] [id number] [place] [address]- 7372 February, [facility] [place] [facility] [address] [id number] [place] [address]- 2463 February, [facility] [place] [facility] [address] [id number] [place] [address]- 9818 February, [facility] [place] [facility] [address] [id number] [place] [address]- 9679 February, [facility] [place] [facility] [address] [id number] [place] [address]- 7456 February, [facility] [place] [facility] [address] [id number] [place] [address]- 6149 February, [facility] [place] [facility] [address] [id number] [place] [address]- 5306 February, [facility] [place] [facility] [address] [id number] [place] [address]- 4710 February, [facility] [place] [facility] [address] [id number] [place] [address]- 7553 February, [facility] [place] [facility] [address] [id number] [place] [address]- 1214 February, [facility] [address] [id number] [place] [address]- 7807 February, [facility] [place] [facility] [address] [id number] [place] [address]- 9505 February, [facility] [place] [facility] [address] [id number] [place] [address]- 4525 February, [facility] [place] [facility] [address] [id number] [place] [address]- 5624 February, [facility] [place] [facility] [address] [id number] [place] [address]- 4445 February, [facility] [place] [facility] [address] [id number] [place] [address]- 2975 February, [facility] [place] [facility] [address] [id number] [place] [address]- 8029 February, [facility] [place] [facility] [address] [id number] [place] [address]- 7499 February, [facility] [place] [facility] [address] [id number] [place] [address]- 1565 February, [facility] [place] [facility] [address] [id number] [place] [address]- 3224 February, [facility] [place] [facility] [address] [id number] [place] [address]- 5235 February, [facility] [place] [facility] [address] [id number] [place] [address]- 0055 Jan, [facility] [place] [facility] [address] [id number] [place] [address]- 0797 Jan, [facility] [place] [facility] [address] [id number] [place] [address]- 1126 Jan, [facility] [place] [facility] [address] [id number] [place] [address]- 3122 Jan, [facility] [place] [facility] [address] [id number] [place] [address]- 5584 Jan, [facility] [address] [id number] [place] [address]- 1047 Jan, [facility] [place] [facility] [address] [id number] [place] [address]- 6480 Jan, [facility] [place] [facility] [address] [id number] [place] [address]- 4243 Jan, [facility] [place] [facility] [address] [id number] [place] [address]- 0768 Jan, [facility] [place] [facility] [address] [id number] [place] [address]- 0875 Jan, [facility] [place] [facility] [address] [id number] [place] [address]- 6501 Jan, [facility] [place] [facility] [address] [id number] [place] [address]- 3944 Jan, [facility] [place] [facility] [address] [id number] [place] [address]- 3760 Dec, [facility] [place] [facility] [address] [id number] [place] [address]- 2835 Dec, [facility] [place] [facility] [address] [id number] [place] [address]- 3946 Nov, [facility] [place] [facility] [address] [id number] [place] [address]- 5377 Nov, [facility] [place] [facility] [address] [id number] [place] [address]- 9632 Nov, [facility] [place] [facility] [address] [id number] [place] [address]- 4320 Nov, [facility] [place] [facility] [address] [id number] [place] [address]- 4091 Nov, [facility] [place] [facility] [address] [id number] [place] [address]- 7197 Nov, [facility] [address] [id number] [place] [address]- 8039 Oct, [facility] [place] [facility] [address] [id number] [place] [address]- 3303 Oct, [facility] [place] [facility] [address] [facility] [id number] [place] [address]- 2891 Oct, [facility] [place] [facility] [address] [id number] [place] [address]- 1560 Oct, [facility] [place] [facility] [address] [id number] [place] [address]- 7364 Sep, [facility] [place] [facility] [address] [id number] [place] [address]- 3094 Sep, [facility] [place] [facility] [address] [id number] [place] [address]- 1170 Sep, [facility] [place] [facility] [address] [id number] [place] [address]- 7992 24 Sep, 2013 [facility] [place] [facility] [address] [id number] [place] [address]- 3854 18 Sep, 2013 [facility] [place] [facility] [address] [facility] [id number] [place] [address]- 1188 18 Sep, 2013 [facility] [place] [facility] [address] [id number] [place] [address]- 5186 17 Sep, 2013 [facility] [place] [facility] [address] [id number] [place] [address]- 5156 17 Sep, 2013 [facility] [place] [facility] [address] [id number] [place] [address] 12 Sep, 2013 [facility] [place] [facility] [address] [id number] [place] [address]- 7882 12 Sep, 2013 [facility] [place] [facility] [address] [facility] [id number] [place] [address]- 1383 11 Sep, 2013 [facility] [place] [facility] [address] [id number] [place] [address]69 Sep, [facility] [place] [facility] [address] [id number] [place] [address]- 6516 Sep, [facility] [place] [facility] [address] [id number] [place] [address]78 Sep, [facility] [place] [facility] [address] [id number] [place] [address]- 7023 Aug, [facility] [place] [facility] [address] [id number] [place] [address]- 1938 Aug, [facility] [place] [facility] [address] [id number] [place] [address]- 6760 Aug, [facility] [place] [facility] [address] [id number] [place] [address]- 0265 Aug, [facility] [place] [facility] [address] [id number] [place] [address]- 1985 Jul, [facility] [place] [facility] [address] [id number] [place] [address]- 1130 24 Jul, 2013 [facility] [place] [facility] [address] [id number] [place] [address]- 5199 Jul, [facility] [place] [facility] [address] [facility] [id number] [place] [address]- 0993 Jul, [facility] [place] [facility] [address] [id number] [place] [address]- 2545 27 Jun, 2013 [facility] [place] [facility] [address] [id number] [place] [address]- 2547 18 Jun, 2013 [facility] [place] [facility] [address] [id number] [place] [address]- 5081 11 Jun, 2013 [facility] [place] [facility] [address] [id number] [place] [address]- 2541 03 Jun, 2013 [facility] [place] [facility] [address] [id number] [place] [address]- 7443 May, [facility] [place] [facility] [address] [id number] [place] [address]- 3319 May, [facility] [place] [facility] [address] [id number] [place] [address]- 9067 May, [facility] [place] [facility] [address] [id number] [place] [address]- 6937 May, [facility] [place] [facility] [address] [id number] [place] [address]- 0142 May, [facility] [place] [facility] [address] [id number] [place] [address]- 2455 May, [facility] [place] [facility] [address] [id number] [place] [address]- 0629 May, [facility] [place] [facility] [address] [id number] [place] [address]- 1870 May, [facility] [place] [facility] [address] [id number] [place] [address]- 4547 May, [facility] [place] [facility] [address] [id number] [place] [address]- 9836 Apr, [facility] [place] [facility] [address] [id number] [place] [address]- 3154 Apr, [facility] [place] [facility] [address] [id number] [place] [address]- 1657 Apr, [facility] [place] [facility] [address] [id number] [place] [address]- 4217 Apr, [facility] [place] [facility] [address] [id number] [place] [address]- 3773 Apr, [facility] [place] [facility] [address] [id number] [place] [address]- 4755 Apr, [facility] [place] [facility] [address] [id number] [place] [address]- 3773 Apr, [facility] [place] [facility] [address] [id number] [place] [address]- 2634 Mar, [facility] [address] [id number] [place] [address]- 0038 February, [facility] [address] [id number] [place] [address]- 7425 February, [facility] [address] [id number] [place] [address]- 1696 February, [facility] [address] [id number] [place] [address]- 3997 February, [facility] [address] [id number] [place] 6177 February, [facility] [address] [id number] [place] [address]- 8503 Jan, [facility] [address] [id number] [place] [address]- 1683 Jan, [facility] [address] [id number] [place] [address]- 6374 Jan, [facility] [address] [id number] [place] [address]- 2880 Dec, [facility] [place] [facility] [address] [id number] [place] [address]- 1255 Dec, [facility] [address] [id number] [place] [address]- 4791 Dec, [facility] [place] [facility] [address] [id number] [place] [address]- 5575 Dec, [facility] [place] [facility] [address] [id number] [place] [address]- 8722 Dec, [facility] [place] [facility] [address] [id number] [place] [address]- 5515 Dec, [facility] [place] [facility] [address] [id number] [place] [address]- 9260 Nov, [facility] [place] [facility] [address] [id number] [place] [address]- 7567 20 Nov, 2012 [facility] [address] [id number] [place] [address]- 9356 Nov, 2012 [facility] [place] [facility] [address] [id number] [place] [address]- 2906 14 Nov, 2012 [facility] [place] [facility] [address] [id number] [place] [address]- 5436 Nov, [facility] [place] [facility] [address] [id number] [place] [address]- 6098 Nov, [facility] [address] [id number] [place] [address]- 2511 Oct, [facility] [address] [id number] [place] [address]- 6729 Oct, [facility] [address] [id number] [place] [address]- 6337 Oct, [facility] [address] [id number] [place] [address]- 9509 Oct, [facility] [address] [id number] [place] [address]- 4043 Oct, [facility] [address] [id number] [place] [address]- 3449 Oct, [facility] [address] [id number] [place] [address]- 5359 Sep, [facility] [place] [facility] [address] [id number] [place] [address]- 9213 Sep, [facility] [place] [facility] [address] [id number] [place] [address]- 6464 Sep, [facility] [place] [facility] [address] [id number] [place] [address]- 8197 Sep, [facility] [place] [facility] [address] [id number] [place] [address]- 2106 Sep, [facility] [place] [facility] [address] [id number] [place] [address]- 6389 Sep, [facility] [place] [facility] [address] [id number] [place] [address]- 9999 Sep, [facility] [place] [facility] [address] [facility] [id number] [place] [address]- 7319 Sep, [facility] [place] [facility] [address] [id number] [place] [address]- 9386 Aug, [facility] [place] [facility] [address] [id number] [place] [address]- 9344 Aug, [facility] [place] [facility] [address] [id number] [place] [address]- 5346 Aug, [facility] [place] [facility] [address] [id number] [place] [address]- 2841 Aug, [facility] [place] [facility] [address] [id number] [place] [address]- 2718 Aug, [facility] [place] [facility] [address] [id number] [place] [address]- 2972 Aug, [facility] [place] [facility] [address] [facility] [id number] [place] [address]- 2580 Aug, [facility] [place] [facility] [address] [id number] [place] [address]- 8766 Aug, [facility] [place] [facility] [address] [id number] [place] [address]- 7674 Jul, [facility] [place] [facility] [address] [id number] [place] [address]- 4895 Jul, [facility] [place] [facility] [address] [facility] [id number] [place] [address]- 9522 Jul, [facility] [place] [facility] [address] [facility] [id number] [place] [address]- 8186 Jul, [facility] [place] [facility] [address] [id number] [place] [address]- 6563 Jul, [facility] [address] [id number] [place] [address] Jul, [facility] [address] [id number] [place] [address] Jul, [facility] [address] [id number] [place] [address] Jul, [facility] [address] [id number] [place] [address] Jul, [facility] [address] [id number] [place] [address], [place] [address] 27 Jun, 2012 [facility] [address] [id number] [place] [address] Jun, [facility] [address] [id number] [place] [address] Jun, [facility] [address] [id number] [place] [address] 24 Jun, 2012 [facility] [address] [facility] [id number] [place] [address] Oct, [facility] [address] [facility] [id number] [place] [address] Aug, [facility] [address] [id number] [place] [address] Oct, [facility] [address] [id number] [place] [address] Sep, [facility] [place] [facility] [address] [id number] [place] [address] 22 Sep, 2010 [facility] [place] [facility] [address] [facility] [id number] [place] [address] 16 Sep, 2010 [facility] [address] [facility] [id number] [place] [address] 13 Sep, 2010 [facility] [address] [id number] [place] [address] 10 Sep, 2010 [facility] [place] [facility] [address] [id number] [place] [address] Sep, [facility] [place] [facility] [address] [id number] [place] [address] Sep, [facility] [place] [facility] [address] [id number] [place] [address] Sep, [facility] [place] [facility] [address] [id number] [place] [address] Sep, [facility] [place] [facility] [address] [id number] [place] [address] 279[address] Sep, [facility] [place] [facility] [address] [facility] [id number] [place] [address] Aug, [facility] [place] [facility] [address] [id number] [place] [address] Aug, [facility] [place] [facility] [address] [facility] [id number] [place] [address] Jul, [facility] [place] [facility] [address] [facility] [id number] [place] [address] Jan, [facility] [place] [facility] [address] [facility] [id number] [place] [address] Dec, [facility] [place] [facility] [address] [id number] [place] [address] Nov, [facility] [place] [facility] [address] [id number] [place] [address] Sep, [facility] [place] [facility] [address] [id number] [place] [address] Sep, [facility] [place] [facility] [address] [facility] [id number] [place] [address] Jul, [facility] [place] [facility] [address] [id number] [place] [address] Jul, [facility] [address] [facility] [id number] [place] [address] Jul, [facility] [address] [facility] [id number] [place] [address] Jul, [facility] [address] [facility] [id number] [place] [address] 13 Jul, 2009 IMMUNIZATIONS No Known Immunizations SOCIAL HISTORY Never Assessed REASON FOR VISIT PLAN OF CARE VITAL SIGNS MEDICATIONS Unknown Medications RESULTS No Results PROCEDURES No Known procedures INSTRUCTIONS MEDICATIONS ADMINISTERED No Known Medications MEDICAL (GENERAL) HISTORY Type Description Date Medical [...]
--- OUTSIDE RECORDS SUMMARY | 2018-02-11 10:07 | XMS REPORT ---
Author Author BHARAT MANCIA Organization [facility] Address [address] [place] [address] Care Team Providers Care Volunteer Recruiter Name Role Phone BHARAT MANCIA Unavailable PROBLEMS Type Condition ICD9-CM Code KZW89-ZO Code Onset Dates Condition Status SNOMED Code Problem Essential (primary) hypertension I10 Active 33770613 Problem Heart valve disorder I38 Active 100931 Problem Breast cancer screening Z12.39 Active 179174032 Problem Gastroesophageal reflux disease with esophagitis K21.0 Active 830052593 Problem Nocturnal hypoxia G47.34 Active 236968787 Problem Aortic valve stenosis, unspecified etiology I35.0 Active 72452872 Problem Essential hypertension I10 Active 20519801 Problem Stress incontinence N39.3 Active 95531640 Problem Hyperlipidemia, unspecified hyperlipidemia type E78.5 Active 92546795 Problem Hyperglycemia R73.9 Active 32087219 Problem COPD (chronic obstructive pulmonary disease) J44.9 Active 91659969 Problem Mixed stress and urge urinary incontinence N39.46 Active 513500936 Problem clarifier (current) use of anticoagulants Z79.01 Active 477977216 Problem Thyroid nodule, cold E04.1 Active 040995152 Problem Atherosclerotic heart disease of [place] coronary artery without angina pectoris I25.10 Active [id number] ALLERGIES No Information ENCOUNTERS Encounter Location Date Diagnosis [facility] [id number] [place] [address] 22345- 3018 11 Jan, 2018 Medicare annual wellness visit, initial Z00.00 [facility] [id number] [place] [address] 37863 -8842 05 Jan, 2018 Dental infection K04.7 [facility] [id number] [place] [address] 33030- 3365 04 Jan, 2018 [facility] [address] [place] [id number] [place] [address] 81304- 1906 Dec, Essential hypertension I10 and Atherosclerotic heart disease of [place] coronary artery without angina pectoris I25.10 [place] [address] 61564- 8382 Dec, [place] [address] 95353- 1141 Dec, Urinary tract infection, site not specified N39.0 [place] [address] 04647- 8217 Dec, Cough R05 ; Dysuria R30.0 ; retirement (current) use of anticoagulants Z79.01 ; Atherosclerotic heart disease of [place] coronary artery without angina pectoris I25.10 and Urinary tract infection without hematuria, site unspecified N39.0 [facility] [place] [address] 08128 -7230 Dec, Seasonal allergic rhinitis, unspecified trigger J30.2 [place] [address] 95006- 7163 Nov, [place] [address] 17457- 7934 Nov, Mixed stress and urge urinary incontinence N39.46 [place] [address] 67435- 1291 Nov, [place] [address] 87796- 6424 Nov, [facility] [place] [address] 23505 -4988 13 Nov, 2017 Gastroesophageal reflux disease with esophagitis K21.0 [facility] [place] [address] 25152 -1151 02 Nov, 2017 Upper respiratory infection, acute J06.9 and Post-nasal drainage R09.82 [place] [address] 17022- 8560 Oct, COPD (chronic obstructive pulmonary disease) J44.9 and Nocturnal hypoxia G47.34 [place] [address] 41257- 8207 Oct, [place] [address] 56235- 9847 Oct, Stress incontinence N39.3 ; COPD (chronic obstructive pulmonary disease) J44.9 and retirement (current) use of anticoagulants Z79.01 [place] [address] 57956- 3037 Oct, [place] [address] 46333- 0206 Sep, Nasal congestion R09.81 [place] [address] 96745- 5622 Sep, [facility] [place] [address] 92326 -7354 Aug, Other viral agents as the cause of diseases classified elsewhere B97.89 ; Acute upper respiratory infection, unspecified J06.9 and BMI 40.0-44.9, adult Z68.41 [place] [address] 95654- 4080 Aug, Dysuria R30.0 ; Urinary tract infection, site not specified N39.0 ; Hematuria, unspecified R31.9 and Stress incontinence N39.3 [facility] [place] [id number] 43709 -5821 Jul, Oral abscess K12.2 [place] [address] 42409- 1346 Jul, [place] [address] 93181- 3790 Jul, [facility] [address] [id number] Jun, Dental examination Z01.20 [facility] [place] [address] [facility] [address] [id number] [place] [id number] Jun, [facility] [place] [address] [facility] [address] [id number] [place] [id number] Jun, [facility] [address], [place] [address]- 5681 May, Plantar fasciitis of right foot M72.2 [facility] [address] [place] [id number] [place] [address] 67659- 6006 May, [facility] [address] [place] [address] 09315 -3088 Apr, Acute upper respiratory infection, unspecified J06.9 and Seasonal allergic rhinitis, unspecified chronicity, unspecified trigger J30.2 [place] [address] [place] [id number] [place] [address] 60415- 1975 Mar, Plantar fasciitis of right foot M72.2 and Bursitis of right foot M71.571 [facility] [address], [place] [address] Mar, Acute seasonal allergic rhinitis, unspecified trigger J30.2 [facility] [address] [place] [address] 06560 -7157 February, Acute upper respiratory infection, unspecified J06.9 [place] [address] [place] [address] 85563- 2626 February, [facility] [address] [place] [address] 44622- 4566 February, [facility] [address] [place] [id number] [place] [address] 27322- 2832 Jan, Right foot pain M79.671 and retirement (current) use of anticoagulants Z79.01 [facility] [address] [address] Jan, Dental caries K02.9 [facility] [address] 61889- 0179 Jan, [place] [address] 80984- 3947 Jan, [place] [address] 23240- 9320 Jan, clarifier (current) use of anticoagulants Z79.01 [place] [address] 37110- 1099 Jan, [place] [address] 98008- 5755 Jan, Atherosclerotic heart disease of [place] coronary artery without angina pectoris I25.10 ; Aortic valve stenosis, unspecified etiology I35.0 ; Essential hypertension I10 and Hyperlipidemia, unspecified hyperlipidemia type E78.5 [place] [address] 17269- 2231 Jan, Dental examination Z01.20 [facility] [address] 15979 -1678 Jan, Tooth abscess K04.7 and Abscess of mouth K12.2 [place] [address] 21795- 7207 Dec, [place] [address] 05798- 4155 Dec, Cough R05 [place] [address] 31701- 6988 Dec, [facility] [address] 65867 -5862 Dec, Dental abscess K04.7 [place] [address] 25986- 3819 Nov, clarifier (current) use of anticoagulants Z79.01 and Hypokalemia E87.6 [place] [address] 16829- 4029 Nov, clarifier (current) use of anticoagulants Z79.01 [facility] [address] [place] [id number] [place] [address] 15450- 9106 16 Nov, 2016 retirement (current) use of anticoagulants Z79.01 ; Hyperglycemia R73.9 ; Hypokalemia E87.6 and Heart valve disorder I38 [facility] [address] [place] [id number] [place] [address] 65572 -2436 08 Nov, 2016 Pain of right heel M79.671 [facility] [address] [place] [id number] [place] [address] 96031- 1823 Sep, Back pain M54.9 [facility] [address] [place] [id number] [place] [address] 88342- 4371 Sep, [facility] [address] [place] [id number] [place] [address] 37156- 5490 Sep, Back pain M54.9 [facility] [address] [place] [id number] [place] [address] 98331- 7246 Aug, Nasal congestion R09.81 [facility] [address] 77018- 5073 Aug, [facility] [address] [place] [id number] [place] [address] 53650 -1826 Aug, Acute non-recurrent frontal sinusitis J01.10 [facility] [address] [place] [id number] [place] [address] 77588- 4877 Jul, [facility] [address] [place] [id number] [place] [address] 50193- 9773 Jul, [facility] [address] [place] [id number] [place] [address] 20723- 2958 Jun, [facility] [address] [place] [id number] [place] [address] 42163- 1527 Jun, [facility] [address] [place] [id number] [place] [address] 55586- 0315 May, [facility] [address], [place] [address]- 4482 May, [facility] [address] [id number] [place] [address] May retirement (current) use of anticoagulants Z79.01 [facility] [address] [place] [id number] [place] [address] 38347- 8030 Apr, clarifier (current) use of anticoagulants Z79.01 [facility] [address] [place] [address] 74402- 3572 Apr, [facility] [address] [place] [id number] [place] [address] 97941- 9451 Apr, [facility] [address] [place] [id number] [place] [address] 17224- 6052 Apr, Hyperglycemia R73.9 and Breast cancer screening Z12.39 [facility] [address] [place] [address] 23392- 7995 Mar, [facility] [address] [place] [id number] [place] [address] 40430 -0616 Mar, Left foot pain M79.672 [facility] [address] [place] [address] 10929 -7728 February, Dysuria R30.0 [facility] [address] [place] [address] 12803- 8215 February, retirement (current) use of anticoagulants Z79.01 [facility] [address] [place] [address] 62545- 8492 February, clarifier (current) use of anticoagulants Z79.01 [facility] [address] [place] [address] 29632- 2072 February, [facility] [address] [place] [id number] [place] [address] 57251- 8461 February, retirement (current) use of anticoagulants Z79.01 [facility] [address] [place] [id number] [place] [address] 34734- 1243 February, retirement (current) use of anticoagulants Z79.01 [facility] [address] [place] [id number] [place] [address] 32430- 0260 Jan, [facility] [address] [place] [id number] [place] [address] 76276- 3166 Jan, [facility] [address] [place] [id number] [place] [address] 58321 -8221 Jan, Allergic rhinitis J30.9 ; Cough R05 and Stress incontinence N39.3 [place] [address] [place] [id number] [place] [address] 76765- 0145 Jan, clarifier (current) use of anticoagulants Z79.01 [place] [address] [place] [id number] [place] [address] 91786- 9618 Jan, clarifier (current) use of anticoagulants Z79.01 [place] [address] [place] [id number] [place] [address] 59062- 8753 Dec, retirement (current) use of anticoagulants Z79.01 ; Atherosclerotic heart disease of [place] coronary artery without angina pectoris I25.10 and Essential (primary) hypertension I10 [place] [address] [place] [id number] [place] [address] 75979- 8184 Dec, COPD (chronic obstructive pulmonary disease) J44.9 [place] [address] [place] [id number] [place] [address] 27356- 2804 Dec, [place] [address] [place] [id number] [place] [address] 94807- 2701 Dec, [place] [address] [place] [id number] [place] [address] 14679- 3295 Dec, Hyperglycemia R73.9 ; COPD (chronic obstructive pulmonary disease) J44.9 ; retirement current use of anticoagulant therapy V58.61 and Back pain M54.9 [facility] [address], [place] [address]- 5916 Nov, [facility] [address] [place] [id number] [place] [address] 61135- 3293 Nov, [facility] [address] [place] [id number] [place] [address] 97507- 8652 Oct, [facility] [address] [place] [id number] [place] [address] 59106- 0501 Oct, [facility] [address] [place] [id number] [place] [address] 10649- 7598 Oct, [facility] [address] [place] [id number] [place] [address] 43273 -7645 Sep, Bronchitis J40 [facility] [address] [place] [id number] [place] [address] 58182- 7037 Sep, [facility] [address] [place] [id number] [place] [address] 74704- 4893 Aug, [facility] [address] [place] [id number] [place] [address] 45325- 6523 Aug, [facility] [address] [place] [id number] [place] [address] 77925- 3177 Jul, [facility] [address] [place] [address] [id number] Jul, Encounter for dental examination Z01.20 [facility] [address] [place] [id number] [place] [address] 09331- 3142 Jul, Ear pain, right H92.01 ; High risk medication use Z79.899 and Back pain, unspecified back pain laterality, unspecified location M54.9 [facility] [address] [place] [address] 04012- 9201 Jul, Meningitis contact Z20.89 [facility] [address] [place] [id number] [place] [address] 68134- 6293 Jul, [facility] [address] [facility] [id number], [place] [address]- 6799 Jul, [facility] [address] [facility] [id number], [place] [address]- 9746 Jul, [facility] [address] [facility] [id number], [place] [address]- 7828 May, [facility] [address] [facility] [id number], [place] [address]- 9796 May, [facility] [address] [facility] [id number], [place] [address] Apr, retirement current use of anticoagulant therapy V58.61 ; CAD (coronary artery disease) 414.00 ; Constipation 564.00 and Back pain 724.5 [facility] [address], [place] [address]- 5040 Apr, [facility] [address] [facility] [id number], [place] [address]- 5694 Apr, [facility] [address], [place] [address]- 8988 Apr, clarifier current use of anticoagulant therapy V58.61 ; Constipation 564.00 ; Back pain 724.5 and CAD (coronary artery disease) 414.00 [facility] [address] [place] [id number] [address]- 6786 Apr, [facility] [address] [facility] [id number], [place] [address]- 3346 Mar, [facility] [address] [place] [id number], [place] [address]- 3256 Mar, [facility] [address] [place] [id number], [place] [address]- 4316 February, [facility] [address] [place] [id number], [place] [address]- 2546 February, [facility] [address] [place] [address]- 6681 14 Jan, 2015 [facility] [address] [id number] [place] [address]- 0308 13 Jan, 2015 [facility] [place] [facility] [address] [id number] [place] [address]- 3580 26 Dec, 2014 [facility] [place] [facility] [address] [id number] [place] [address]- 9037 26 Dec, 2014 [facility] [place] [facility] [address] [id number] [place] [address]- 4711 26 Dec, 2014 [facility] [place] [facility] [address] [id number] [place] [address]- 5325 Dec, [facility] [place] [facility] [address] [id number] [place] [address]- 2431 Dec, [facility] [place] [facility] [address] [id number] [place] [address]- 8083 Dec, [facility] [place] [facility] [address] [id number] [place] [address]- 0036 24 Dec, 2014 [facility] [place] [facility] [address] [id number] [place] [address]- 1471 24 Dec, 2014 [facility] [place] [facility] [address] [id number] [place] [address]- 5834 Dec, [facility] [place] [facility] [address] [id number] [place] [address]- 9232 23 Dec, 2014 [facility] [place] [facility] [address] [id number] [place] [address]- 1287 17 Dec, 2014 [facility] [place] [facility] [address] [id number] [place] [address]- 1404 17 Dec, 2014 [facility] [place] [facility] [address] [id number] [place] [address]- 9624 16 Dec, 2014 [facility] [place] [facility] [address] [id number] [place] [address]- 4036 16 Dec, 2014 [facility] [place] [facility] [address] [id number] [place] [address]- 2666 Dec, [facility] [place] [facility] [address] [id number] [place] [address]- 7927 12 Dec, 2014 [facility] [place] [facility] [address] [id number] [place] [address]- 5396 06 Dec, 2014 [facility] [place] [facility] [address] [id number] [place] [address]- 1608 06 Dec, 2014 [facility] [place] [facility] [address] [id number] [place] [address]- 4899 04 Dec, 2014 [facility] [place] [facility] [address] [id number] [place] [address]- 3473 Dec, 2014 [facility] [place] [facility] [address] [facility] [id number] [place] [address]- 8433 Dec, 2014 [facility] [place] [facility] [address] [id number] [place] [address]- 6274 Nov, 2014 [facility] [place] [facility] [address] [id number] [place] [address]- 1369 Nov, 2014 [facility] [place] [facility] [address] [facility] [id number] [place] [address]- 2965 Nov, 2014 [facility] [place] [facility] [address] [id number] [place] [address]- 3855 Nov, 2014 [facility] [place] [facility] [address] [id number] [place] [address]- 8678 Nov, 2014 [facility] [place] [facility] [address] [id number] [place] [address]- 5020 Nov, 2014 [facility] [place] [facility] [address] [id number] [place] [address]- 0836 19 Nov, 2014 [facility] [place] [facility] [address] [facility] [id number] [place] [address]- 1193 18 Nov, 2014 [facility] [place] [facility] [address] [facility] [id number] [place] [address]- 2639 18 Nov, 2014 [facility] [place] [facility] [address] [id number] [place] [address]- 8261 Nov, 2014 [facility] [place] [facility] [address] [id number] [place] [address]- 9029 Nov, 2014 [facility] [place] [facility] [address] [id number] [place] [address]- 3933 Nov, 2014 [facility] [place] [facility] [address] [id number] [place] [address]- 9681 Nov, 2014 [facility] [place] [facility] [address] [id number] [place] [address]- 3512 Nov, 2014 [facility] [place] [facility] [address] [id number] [place] [address]- 0016 Nov, 2014 [facility] [place] [facility] [address] [id number] [place] [address]- 4212 Nov, 2014 [facility] [place] [facility] [address] [id number] [place] [address]- 2022 Nov, [facility] [place] [facility] [address] [facility] [id number] [place] [address]- 6935 Oct, [facility] [place] [facility] [address] [facility] [id number] [place] [address]- 7960 Oct, [facility] [place] [facility] [address] [id number], [place] [address]- 3816 Oct, [facility] [place] [facility] [address] [id number] [place] [address]- 3222 Oct, [facility] [place] [facility] [address] [id number] [place] [address]- 1969 Oct, [facility] [place] [facility] [address] [id number] [place] [address]- 3863 Oct, [facility] [place] [facility] [address] [id number], [place] [address] Sep, [facility] [place] [facility] [address] [id number] [place] [address] Sep, [facility] [place] [facility] [address] [id number] [place] [address] Sep, [facility] [place] [facility] [address] [id number] [place] [address] Sep, [facility] [place] [facility] [address] [id number] [place] [address] Sep, [facility] [place] [facility] [address] [id number] [place] [address] Sep, [facility] [place] [facility] [address] [id number] [place] [address] Sep, [facility] [place] [facility] [address] [id number] [place] [address] Sep, [facility] [place] [facility] [address] [id number] [place] [address] Sep, [facility] [place] [facility] [address] [id number] [place] [address] Sep, [facility] [place] [facility] [address] [id number] [place] [address] Aug, [facility] [place] [facility] [address] [id number] [place] [address] 18 Aug, 2014 [facility] [place] [facility] [address] [id number], [place] [address] 17 Aug, 2014 [facility] [place] [facility] [address] [id number] [place] [address] 17 Aug, 2014 [facility] [place] [facility] [address] [id number] [place] [address] 14 Aug, 2014 [facility] [place] [facility] [address] [id number] [place] [address] 14 Aug, 2014 [facility] [place] [facility] [address] [id number] [place] [address] Aug, [facility] [place] [facility] [address] [id number] [place] [address] Aug, [facility] [place] [facility] [address] [id number] [place] [address] Jul, [facility] [place] [facility] [address] [id number] [place] [address] Jul, [facility] [place] [facility] [address] [id number] [place] [address] Jul, [facility] [place] [facility] [address] [id number] [place] [address] Jul, [facility] [place] [facility] [address] [id number] [place] [address] Jul, [facility] [place] [facility] [address] [id number] [place] [address] Jul, [facility] [place] [facility] [address] [id number] [place] [address] Jul, [facility] [place] [facility] [address] [id number] [place] [address] Jul, [facility] [place] [facility] [address] [id number] [place] [address] 24 Jun, 2014 [facility] [place] [facility] [address] [id number] [place] [address] 24 Jun, 2014 [facility] [place] [facility] [address] [id number] [place] [address] 23 Jun, 2014 [facility] [place] [facility] [address] [id number] [place] [address] 23 Jun, 2014 [facility] [place] [facility] [address] [id number] [place] [address] 23 Jun, 2014 [facility] [place] [facility] [address] [id number] [place] [address]- 6974 Jun, [facility] [place] [facility] [address] [id number] [place] [address] Jun, 2013 [facility] [place] [facility] [address] [id number] [place] [address] 0482 Jun, 2013 [facility] [place] [facility] [address] [id number] [place] [address] 2433 Jun, 2013 [facility] [place] [facility] [address] [id number] [place] [address]- 3280 Jun, 2013 [facility] [place] [facility] [address] [id number] [place] [address]- 9356 15 Jun, 2014 [facility] [place] [facility] [address] [id number] [place] [address]- 4496 15 Jun, 2014 [facility] [place] [facility] [address] [id number] [place] [address]- 7062 Jun, [facility] [place] [facility] [address] [id number] [place] [address]- 0066 Jun, [facility] [place] [facility] [address] [id number] [place] [address]- 9056 Jun, [facility] [place] [facility] [address] [id number] [place] [address]- 4651 Jun, [facility] [place] [facility] [address] [id number] [place] [address]- 8885 May, [facility] [place] [facility] [address] [id number] [place] [address]- 0538 May, [facility] [place] [facility] [address] [id number] [place] [address]- 1040 May, [facility] [place] [facility] [address] [id number] [place] [address]- 2092 May, [facility] [place] [facility] [address] [id number] [place] [address]- 8221 May, [facility] [place] [facility] [address] [id number] [place] [address]- 8808 May, [facility] [place] [facility] [address] [id number] [place] [address]- 0272 May, [facility] [place] [facility] [address] [id number] [place] [address]- 3894 May, [facility] [place] [facility] [address] [id number] [place] [address]- 0421 May, [facility] [place] [facility] [address] [id number] [place] [address]- 6594 May, [facility] [place] [facility] [address] [id number] [place] [address]- 5376 May, [facility] [place] [facility] [address] [id number] [place] [address]- 8520 May, [facility] [place] [facility] [address] [id number] [place] [address]- 1616 May, [facility] [place] [facility] [address] [id number] [place] [address]- 4896 May, [facility] [place] [facility] [address] [id number] [place] [address]- 6261 May, [facility] [place] [facility] [address] [id number] [place] [address]- 2494 Apr, [facility] [place] [facility] [address] [id number] [place] [address]- 7732 Apr, [facility] [place] [facility] [address] [id number] [place] [address]- 1497 Apr, [facility] [place] [facility] [address] [id number] [place] [address]- 6533 Apr, [facility] [place] [facility] [address] [id number] [place] [address]- 8157 Apr, [facility] [place] [facility] [address] [id number] [place] [address]- 1834 Apr, [facility] [place] [facility] [address] [id number] [place] [address]- 4869 Apr, [facility] [place] [facility] [address] [id number] [place] [address]- 2018 Apr, [facility] [place] [facility] [address] [id number] [place] [address]- 0626 Apr, [facility] [place] [facility] [address] [id number] [place] [address]- 6042 Apr, [facility] [place] [facility] [address] [id number] [place] [address]- 6305 Apr, [facility] [place] [facility] [address] [id number] [place] [address]- 6601 Apr, [facility] [place] [facility] [address] [id number] [place] [address]- 1441 Apr, [facility] [place] [facility] [address] [id number] [place] [address]- 0544 Apr, [facility] [place] [facility] [address] [id number] [place] [address]- 1318 Mar, [facility] [place] [facility] [address] [id number] [place] [address]- 2335 Mar, [facility] [place] [facility] [address] [id number] [place] [address]- 6169 Mar, [facility] [place] [facility] [address] [id number] [place] [address]- 0408 Mar, [facility] [place] [facility] [address] [id number] [place] [address]- 9025 Mar, [facility] [place] [facility] [address] [id number] [place] [address]- 7634 Mar, [facility] [place] [facility] [address] [id number] [place] [address]- 7545 Mar, [facility] [place] [facility] [address] [id number] [place] [address]- 9529 Mar, [facility] [address] [id number] [place] [address]- 3020 Mar, [facility] [place] [facility] [address] [id number] [place] [address] 1959 February, [facility] [place] [facility] [address] [id number] [place] [address]- 6058 February, [facility] [place] [facility] [address] [id number] [place] [address]- 8537 February, [facility] [place] [facility] [address] [id number] [place] [address]- 4588 February, [facility] [place] [facility] [address] [id number] [place] [address]- 2089 February, [facility] [place] [facility] [address] [id number] [place] [address]- 0672 February, [facility] [place] [facility] [address] [id number] [place] [address]- 8687 February, [facility] [place] [facility] [address] [id number] [place] [address]- 5988 February, [facility] [place] [facility] [address] [id number] [place] [address]- 6937 February, [facility] [place] [facility] [address] [id number] [place] [address]- 8776 February, [facility] [place] [facility] [address] [id number] [place] [address]- 5184 February, [facility] [place] [facility] [address] [id number] [place] [address]- 1950 February, [facility] [place] [facility] [address] [id number] [place] [address]- 1648 February, [facility] [place] [facility] [address] [id number] [place] [address]- 8255 February, [facility] [place] [facility] [address] [id number] [place] [address]- 7243 February, [facility] [address] [id number] [place] [address]- 3321 February, [facility] [place] [facility] [address] [id number] [place] [address]- 2376 February, [facility] [place] [facility] [address] [id number] [place] [address]- 9723 February, [facility] [place] [facility] [address] [id number] [place] [address]- 3059 February, [facility] [place] [facility] [address] [id number] [place] [address]- 7072 February, [facility] [place] [facility] [address] [id number] [place] [address]- 9180 February, [facility] [address] [id number] [place] [address]- 2339 February, [facility] [place] [facility] [address] [id number] [place] [address]- 6563 February, [facility] [place] [facility] [address] [id number] [place] [address]- 9724 Jan, [facility] [place] [facility] [address] [id number] [place] [address]- 3026 Jan, [facility] [place] [facility] [address] [id number] [place] [address]- 0693 Jan, [facility] [place] [facility] [address] [id number] [place] [address]- 8694 Jan, [facility] [place] [facility] [address] [id number] [place] [address]- 0096 Jan, [facility] [place] [facility] [address] [id number] [place] [address]- 8487 Jan, [facility] [place] [facility] [address] [id number] [place] [address]- 5370 Jan, [facility] [place] [facility] [address] [id number] [place] [address]- 9667 Jan, [facility] [place] [facility] [address] [id number] [place] [address]- 4562 Jan, [facility] [place] [facility] [address] [id number] [place] [address]- 2398 Jan, [facility] [place] [facility] [address] [id number] [place] [address]- 2026 Jan, [facility] [place] [facility] [address] [id number] [place] [address]- 9044 Jan, [facility] [place] [facility] [address] [id number] [place] [address]- 4590 Dec, [facility] [place] [facility] [address] [id number] [place] [address]- 0529 Dec, [facility] [place] [facility] [address] [id number] [place] [address]- 6875 Nov, [facility] [place] [facility] [address] [id number] [place] [address]- 1608 Nov, [facility] [place] [facility] [address] [id number] [place] [address]- 4241 Nov, [facility] [place] [facility] [address] [id number] [place] [address]- 9509 Nov, [facility] [place] [facility] [address] [id number] [place] [address]- 0108 Nov, [facility] [place] [facility] [address] [id number] [place] [address]- 0715 Nov, [facility] [place] [facility] [address] [id number] [place] [address]- 6926 Oct, [facility] [place] [facility] [address] [id number] [place] [address]- 6474 Oct, [facility] [place] [facility] [address] [id number] [place] [address]- 2958 Oct, [facility] [address] [id number] [place] [address]- 0103 Oct, [facility] [address] [id number] [place] [address]- 1816 Sep, [facility] [address] [id number] [place] [address]- 9875 Sep, [facility] [address] [id number] [place] [address]- 1831 Sep, [facility] [address] [id number] [place] [address]- 5782 Sep, [facility] [address] [id number] [place] [address]- 4603 Sep, [facility] [address] [id number] [place] [address]- 7568 Sep, [facility] [address] [id number] [place] [address]- 2766 Sep, [facility] [address] [id number] [place] [address]- 8091 Sep, [facility] [address] [id number] [place] [address]- 5942 Sep, [facility] [address] [id number] [place] [address]- 8829 Sep, [facility] [place] [facility] [address] [id number], [place] [address]- 4717 Sep, [facility] [place] [facility] [address] [id number] [place] [address]- 4922 Sep, [facility] [place] [facility] [address] [id number] [place] [address]- 0168 Sep, [facility] [place] [facility] [address] [id number] [place] [address] Sep, [facility] [place] [facility] [address] [id number] [place] [address]- 0202 Aug, [facility] [place] [facility] [address] [id number] [place] [address]- 4197 Aug, [facility] [place] [facility] [address] [id number] [place] [address]- 7577 Aug, [facility] [place] [facility] [address] [id number] [place] [address]- 8237 Aug, [facility] [place] [facility] [address] [id number] [place] [address]- 3532 Jul, [facility] [place] [facility] [address] [id number] [place] [address]- 8145 Jul, [facility] [place] [facility] [address] [id number] [place] [address]- 8922 Jul, [facility] [place] [facility] [address] [id number] [place] [address]- 1065 Jul, [facility] [place] [facility] [address] [id number] [place] [address]- 2236 27 Jun, 2013 [facility] [place] [facility] [address] [id number] [place] [address]- 8433 18 Jun, 2013 [facility] [place] [facility] [address] [id number] [place] [address]- 7909 Jun, [facility] [place] [facility] [address] [id number] [place] [address]- 8800 03 Jun, 2013 [facility] [place] [facility] [address] [id number] [place] [address]- 8462 May, [facility] [place] [facility] [address] [id number] [place] [address] 2546 May, [facility] [place] [facility] [address] [id number] [place] [address]- 0416 May, [facility] [place] [facility] [address] [id number] [place] [address]- 5449 May, [facility] [place] [facility] [address] [id number] [place] [address]- 8073 May, [facility] [place] [facility] [address] [id number] [place] [address]- 4628 May, [facility] [place] [facility] [address] [id number] [place] [address]- 5447 May, [facility] [place] [facility] [address] [id number] [place] [address]- 7094 May, [facility] [place] [facility] [address] [id number] [place] [address]- 2837 May, [facility] [place] [facility] [address] [id number] [place] [address]- 9007 Apr, [facility] [place] [facility] [address] [id number] [place] [address]- 1162 Apr, [facility] [place] [facility] [address] [id number] [place] [address]- 2156 Apr, [facility] [place] [facility] [address] [id number] [place] [address]- 1961 Apr, [facility] [place] [facility] [address] [id number] [place] [address]- 9661 Apr, [facility] [place] [facility] [address] [id number] [place] [address]- 9287 Apr, [facility] [place] [facility] [address] [id number] [place] [address]- 8019 Apr, [facility] [place] [facility] [address] [id number] [place] [address]- 5588 Mar, [facility] [place] [facility] [address] [id number] [place] [address]- 2589 February, [facility] [place] [facility] [address] [id number] [place] [address]- 9007 February, [facility] [place] [facility] [address] [id number] [place] [address]- 1896 February, [facility] [address] [id number] [place] [address]- 0171 February, [facility] [address] [id number] [place] [address]- 0826 February, [facility] [address] [id number] [place] [address]- 3415 Jan, [facility] [address] [id number] [place] [address]- 254 15 Jan, 2013 [facility] [address] [id number] [place] [address]- 3387 Jan, [facility] [address] [id number] [place] [address]- 0625 Dec, [facility] [address] [id number] [place] [address]- 5020 Dec, [facility] [address] [id number] [place] [address]- 2651 Dec, [facility] [address] [id number] [place] [address]- 1724 Dec, [facility] [address] [facility] [id number] [place] [address]- 2224 Dec, [facility] [place] [facility] [address] [id number] [place] [address]- 3129 Dec, [facility] [address] [id number] [place] [address]- 8915 27 Nov, 2012 [facility] [place] [facility] [address] [id number] [place] [address]- 4336 20 Nov, 2012 [facility] [place] [facility] [address] [id number] [place] [address]- 1914 19 Nov, 2012 [facility] [address] [id number] [place] [address]- 9914 14 Nov, 2012 [facility] [address] [id number] [place] [address]- 2612 Nov, [facility] [place] [facility] [address] [id number] [place] [address]- 4356 Nov, [facility] [address] [id number] [place] [address]- 7784 Oct, [facility] [place] [facility] [address] [id number] [place] [address]- 3529 Oct, [facility] [address] [id number] [place] [address]- 4454 Oct, [facility] [address] [id number] [place] [address]- 6379 Oct, [facility] [address] [facility] [id number] [place] [address]- 1016 Oct, [facility] [address] [id number] [place] [address]- 7144 Oct, [facility] [address] [id number] [place] [address]- 1626 Sep, [facility] [address] [id number] [place] [address]- 6428 Sep, [facility] [place] [facility] [address] [id number], [place] [address]- 4265 Sep, [facility] [place] [facility] [address] [id number], [place] [address]- 8952 Sep, [facility] [place] [facility] [address] [id number] [place] [address]- 9920 Sep, [facility] [place] [facility] [address] [id number], [place] [address]- 5094 Sep, [facility] [place] [facility] [address] [facility] [id number] [place] [address]- 9110 Sep, [facility] [place] [facility] [address] [id number] [place] [address]- 3124 Sep, [facility] [place] [facility] [address] [id number] [place] [address]- 9951 Aug, [facility] [place] [facility] [address] [id number] [place] [address]- 2022 Aug, [facility] [place] [facility] [address] [id number] [place] [address]- 3296 Aug, [facility] [place] [facility] [address] [id number] [place] [address]- 1933 Aug, [facility] [place] [facility] [address] [id number] [place] [address]- 3108 Aug, [facility] [place] [facility] [address] [id number] [place] [address]- 7254 Aug, [facility] [place] [facility] [address] [facility] [id number] [place] [address]- 2215 Aug, [facility] [place] [facility] [address] [id number] [place] [address]- 0353 Aug, [facility] [place] [facility] [address] [id number] [place] [address]- 0357 Jul, [facility] [place] [facility] [address] [facility] [id number] [place] [address]- 1352 Jul, [facility] [place] [facility] [address] [id number] [place] [address]- 7923 Jul, [facility] [place] [facility] [address] [id number], [place] [address]- 7514 Jul, [facility] [place] [facility] [address] [id number] [place] [address]- 3418 Jul, [facility] [place] [facility] [address] [facility] [id number], [place] [address]- 2228 Jul, [facility] [place] [facility] [address] [facility] [id number], [place] [address]- 6555 Jul, [facility] [place] [facility] [address] [id number] [place] [address]- 2259 Jul, [facility] [address] [id number] [place] [address]- 3471 Jul, [facility] [place] [facility] [address] [id number] [place] [address]- 9234 Jun, [facility] [place] [facility] [address] [id number] [place] [address]- 6636 Jun, [facility] [place] [facility] [address] [id number] [place] [address]- 0859 Jun, [facility] [place] [facility] [address] [id number] [place] [address]- 3032 Jun, [facility] [address] [id number] [place] [address]- 4785 Oct, [facility] [address] [id number] [place] [address]- 3556 Aug, [facility] [address] [id number] [place] [address]- 4645 Oct, [facility] [address] [id number] [place] [address]- 5178 Sep[facility] [place] [facility] [address] [id number] [place] [address] 22 Sep, 2010 [facility] [place] [facility] [address] [id number] [place] [address] 16 Sep, 2010 [facility] [place] [facility] [address] [id number] [place] [address] 13 Sep, 2010 [facility] [place] [facility] [address] [id number] [place] [address] 10 Sep, 2010 [facility] [place] [facility] [address] [id number] [place] [address] 10 Sep, 2010 [facility] [place] [facility] [address] [id number], [place] [address] 10 Sep, 2010 [facility] [place] [facility] [address] [id number] [place] 08 Sep, 2010 [facility] [place] [facility] [address] [id number] [place] [address] 08 Sep, 2010 [facility] [place] [facility] [address] [id number] [place] [address] Sep, [facility] [place] [facility] [address] [id number], [place] [address] Aug, [facility] [place] [facility] [address] [id number] [place] [address] Aug, [facility] [place] [facility] [address] [id number] [address] 18 Jul, 2010 [facility] [place] [facility] [address] [id number], [place] [address] Jan, [facility] [place] [facility] [address] [id number], [place] [address] Dec, [facility] [place] [facility] [address] [id number], [place] [address] Nov, [facility] [place] [facility] [address] [id number], [place] [address] Sep, [facility] [place] [facility] [address] [id number], [place] [address] 09 Sep, 2009 [facility] [place] [facility] [address] [id number], [place] [address] 20 Jul, 2009 [facility] [place] [facility] [address] [id number] 16 Jul, 2009 [facility] [place] [facility] [address] [id number], [place] [address] 15 Jul, 2009 [facility] [place] [facility] [address] [id number], [place] [address] 15 Jul, 2009 [facility] [place] [facility] [address] [facility] [id number] [place] [id number] 13 Jul, 2009 IMMUNIZATIONS No Known Immunizations SOCIAL HISTORY Never Assessed REASON FOR VISIT PA for Nexium PLAN OF CARE VITAL SIGNS MEDICATIONS Medication Instructions Dosage Frequency Start Date End Date Duration Status Nexium 40 mg Orally Once a day 1 capsule 24h May, 30 day(s) Active RESULTS No Results PROCEDURES No Known [...]
--- OUTSIDE RECORDS SUMMARY | 2018-02-11 10:15 | XMS REPORT | Continuity of Care Document ---
Author Author [facility] Address Unknown Phone Unavailable Allergies Active Description Code Type Severity Reaction Onset Reported/Identified Relationship to Patient Clinical Status Yes Iodinated Contrast Media - IV Dye [id number] Drug Allergy Unknown N/A 05/28 Yes Iodinated Contrast Media - Oral and [id number] Drug Allergy Unknown N/A 09/2006 Yes Iodinated Contrast- Oral and IV Dye [id number] Drug Allergy Unknown N/A 09/2006 Yes Penicillins [id number] Drug Allergy Unknown N/A 05/29/2006 Yes vancomycin [id number] Drug Allergy Unknown N/A 05/29/2006 Yes hydrocodone [...] Drug Allergy N/A N/A 02/09/2013 Yes tramadol [id number] Drug Allergy Unknown N/A 01/22/2014 Medications There [...] GARCIA APRN 424.1 AORTIC STENOSIS 2009 FELIBERTO GRACIA APRN V58.69 taking high-risk medication for a [...] medication for a long time 2009 CHARITY PHILOSOPHY SPECIALIST, MARCI A 424.1 AORTIC STENOSIS 2009 CHARITY PHILOSOPHY SPECIALIST, MARCI A V58.69 taking high-risk medication for a long time 2009 MADL PHILOSOPHY SPECIALIST, JHONATAN L 424.1 AORTIC STENOSIS 2009 MADL PHILOSOPHY SPECIALIST, JHONATAN L V58.69 taking high-risk medication for [...] medication for a long time 2009 MADL PHILOSOPHY SPECIALIST, JHONATAN L 424.1 AORTIC STENOSIS 2009 MADL PHILOSOPHY SPECIALIST, JHONATAN L V58.69 taking high-risk medication for a long time 2009 MADL PHILOSOPHY SPECIALIST, JHONATAN L 424.1 AORTIC STENOSIS 2009 MADL PHILOSOPHY SPECIALIST, JHONATAN L V58.69 taking high-risk medication for a long time 2009 MADL PHILOSOPHY SPECIALIST, JHONATAN L 424.1 AORTIC STENOSIS 2009 MADL PHILOSOPHY SPECIALIST, JHONATAN L V58.69 taking high-risk medication for a long time 2009 CURRIE DO, AMELIA K 424.1 AORTIC STENOSIS 2009 CURRIE DO, AMELIA K V58.69 taking high-risk medication for a long time 2009 MADL PHILOSOPHY SPECIALIST, JHONATAN L 424.1 AORTIC STENOSIS 2009 MADL PHILOSOPHY SPECIALIST, JHONATAN L V58.69 taking high-risk medication for a long time 2009 MADL PHILOSOPHY SPECIALIST, JHONATAN L 424.1 AORTIC STENOSIS 2009 MADL PHILOSOPHY SPECIALIST, JHONATAN L V58.69 taking high-risk medication for a long time 2009 MADL PHILOSOPHY SPECIALIST, JHONATAN L 424.1 AORTIC STENOSIS 2009 MADL PHILOSOPHY SPECIALIST, JHONATAN L V58.69 taking high-risk medication for a long time 2009 CURRIE DO, AMELIA K 424.1 AORTIC STENOSIS 2009 CURRIE DO, AMELIA K V58.69 taking high-risk medication for a long time 2009 MADL PHILOSOPHY SPECIALIST, JHONATAN L 424.1 AORTIC STENOSIS 2009 MADL PHILOSOPHY SPECIALIST, JHONATAN L V58.69 taking high-risk medication for a long time 2009 MADL PHILOSOPHY SPECIALIST, JHONATAN L 424.1 AORTIC STENOSIS 2009 MADL PHILOSOPHY SPECIALIST, JHONATAN L V58.69 taking high-risk medication for a long time 2009 MAVERICK PHILOSOPHY SPECIALIST, ZACAHRIAH R 424.1 AORTIC STENOSIS 2009 MAVERICK PHILOSOPHY SPECIALIST, ZACHARIAH R V58.69 taking high-risk medication for a long time 2009 MADL PHILOSOPHY SPECIALIST, JHONATAN L 424.1 AORTIC STENOSIS 2009 MADL PHILOSOPHY SPECIALIST, JHONATAN L V58.69 taking high-risk medication for a long time 2009 MADL PHILOSOPHY SPECIALIST, JHONATAN L 424.1 AORTIC STENOSIS 2009 MADL PHILOSOPHY SPECIALIST, JHONATAN L V58.69 taking high-risk medication for a long time 2009 MADL PHILOSOPHY SPECIALIST, JHONATAN L 424.1 AORTIC STENOSIS 2009 MADL PHILOSOPHY SPECIALIST, JHONATAN L V58.69 taking high-risk medication for a long time 2009 MADL PHILOSOPHY SPECIALIST, JHONATAN L 424.1 AORTIC STENOSIS 2009 MADL PHILOSOPHY SPECIALIST, JHONATAN L V58.69 taking high-risk medication for a long time 2009 MADL PHILOSOPHY SPECIALIST, JHONATAN L 424.1 AORTIC STENOSIS 2009 MADL PHILOSOPHY SPECIALIST, JHONATAN L V58.69 taking high-risk medication for a long time 2009 MADL PHILOSOPHY SPECIALIST, JHONATAN L 424.1 AORTIC STENOSIS 2009 MADL PHILOSOPHY SPECIALIST, JHONATAN L V58.69 taking high-risk medication for a long time 2009 CURRIE DO, AMELIA K 424.1 AORTIC STENOSIS 2009 CURRIE DO, AMELIA K V58.69 taking high-risk medication for a long time 2009 MADL PHILOSOPHY SPECIALIST, JHONATAN L 424.1 AORTIC STENOSIS 2009 MADL PHILOSOPHY SPECIALIST, JHONATAN L V58.69 taking high-risk medication for a long time 2009 BLANCHE PHILOSOPHY SPECIALIST, BHARAT S 424.1 AORTIC STENOSIS 2009 BLANCHE PHILOSOPHY SPECIALIST, BHARAT S V58.69 taking high-risk medication for a long time 2009 424.1 AORTIC STENOSIS 2009 V58.69 taking high- risk medication for a long time 2009 MAVERICK PHILOSOPHY SPECIALIST, ZACHARIAH R 424.1 AORTIC STENOSIS 2009 MAVERICK PHILOSOPHY SPECIALIST, ZACHARIAH R V58.69 taking high-risk medication for [...] shortness of breath 07/22/2009 786.2 cough 07/22/2009 MAGDALENA EUCEDA MD 786.05 [...] DO, AMELIA K 786.2 COUGH 07/22/2009 CHARITY PHILOSOPHY SPECIALIST, MARCI A 786.05 SHORTNESS OF BREATH 07/22/2009 CHARITY PHILOSOPHY SPECIALIST, MARCI A 786.2 COUGH 07/22/2009 MADL PHILOSOPHY SPECIALIST, JHONATAN L 786.05 SHORTNESS OF BREATH 07/22/2009 MADL PHILOSOPHY SPECIALIST, JHONATAN L 786.2 COUGH 07/22/2009 786.05 SHORTNESS OF BREATH 07/22/2009 786.2 COUGH 07/22/2009 CURRIE DO, AMELIA K 786.05 SHORTNESS OF BREATH 07/22/2009 CURRIE DO, AMELIA K 786.2 COUGH 07/22/2009 CURRIE DO, AMELIA K 786.05 SHORTNESS OF BREATH 07/22/2009 CURRIE DO, AMELIA K 786.2 COUGH 07/22/2009 MADL PHILOSOPHY SPECIALIST, JHONATAN L 786.05 SHORTNESS OF BREATH 07/22/2009 MADL PHILOSOPHY SPECIALIST, JHONATAN L 786.2 COUGH 07/22/2009 MADL PHILOSOPHY SPECIALIST, JHONATAN L 786.05 SHORTNESS OF BREATH 07/22/2009 MADL PHILOSOPHY SPECIALIST, JHONATAN L 786.2 COUGH 07/22/2009 MADL PHILOSOPHY SPECIALIST, JHONATAN L 786.05 SHORTNESS OF BREATH 07/22/2009 MADL PHILOSOPHY SPECIALIST, JHONATAN L 786.2 COUGH 07/22/2009 CURRIE DO, AMELIA K 786.05 SHORTNESS OF BREATH 07/22/2009 CURRIE DO, AMELIA K 786.2 COUGH 07/22/2009 MADL PHILOSOPHY SPECIALIST, JHONATAN L 786.05 SHORTNESS OF BREATH 07/22/2009 MADL PHILOSOPHY SPECIALIST, JHONATAN L 786.2 COUGH 07/22/2009 MADL PHILOSOPHY SPECIALIST, JHONATAN L 786.05 SHORTNESS OF BREATH 07/22/2009 MADL PHILOSOPHY SPECIALIST, JHONATAN L 786.2 COUGH 07/22/2009 MADL PHILOSOPHY SPECIALIST, JHONATAN L 786.05 SHORTNESS OF BREATH 07/22/2009 MADL PHILOSOPHY SPECIALIST, JHONATAN L 786.2 COUGH 07/22/2009 CURRIE DO, AMELIA K 786.05 SHORTNESS OF BREATH 07/22/2009 CURRIE DO, AMELIA K 786.2 COUGH 07/22/2009 MADL PHILOSOPHY SPECIALIST, JHONATAN L 786.05 SHORTNESS OF BREATH 07/22/2009 MADL PHILOSOPHY SPECIALIST, JHONATAN L 786.2 COUGH 07/22/2009 MADL PHILOSOPHY SPECIALIST, JHONATAN L 786.05 SHORTNESS OF BREATH 07/22/2009 MADL PHILOSOPHY SPECIALIST, JHONATAN L 786.2 COUGH 07/22/2009 MAVERICK PHILOSOPHY SPECIALIST, ZACHARIAH R 786.05 SHORTNESS OF BREATH 07/22/2009 MAVERICK PHILOSOPHY SPECIALIST, ZACHARIAH R 786.2 COUGH 07/22/2009 MADL PHILOSOPHY SPECIALIST, JHONATAN L 786.05 SHORTNESS OF BREATH 07/22/2009 MADL PHILOSOPHY SPECIALIST, JHONATAN L 786.2 COUGH 07/22/2009 MADL PHILOSOPHY SPECIALIST, JHONATAN L 786.05 SHORTNESS OF BREATH 07/22/2009 MADL PHILOSOPHY SPECIALIST, JHONATAN L 786.2 COUGH 07/22/2009 MADL PHILOSOPHY SPECIALIST, JHONATAN L 786.05 SHORTNESS OF BREATH 07/22/2009 MADL PHILOSOPHY SPECIALIST, JHONATAN L 786.2 COUGH 07/22/2009 MADL PHILOSOPHY SPECIALIST, JHONATAN L 786.05 SHORTNESS OF BREATH 07/22/2009 MADL PHILOSOPHY SPECIALIST, JHONATAN L 786.2 COUGH 07/22/2009 MADL PHILOSOPHY SPECIALIST, JHONATAN L 786.05 SHORTNESS OF BREATH 07/22/2009 MADL PHILOSOPHY SPECIALIST, JHONATAN L 786.2 COUGH 07/22/2009 MADL PHILOSOPHY SPECIALIST, JHONATAN L 786.05 SHORTNESS OF BREATH 07/22/2009 MADL PHILOSOPHY SPECIALIST, JHONATAN L 786.2 COUGH 07/22/2009 CURRIE DO, AMELIA K 786.05 SHORTNESS OF BREATH 07/22/2009 CURRIE DO, AMELIA K 786.2 COUGH 07/22/2009 MADL PHILOSOPHY SPECIALIST, JHONATAN L 786.05 SHORTNESS OF BREATH 07/22/2009 MADL PHILOSOPHY SPECIALIST, JHONATAN L 786.2 COUGH 07/22/2009 BLANCHE PHILOSOPHY SPECIALIST, BHARAT S 786.05 SHORTNESS OF BREATH 07/22/2009 BLANCHE PHILOSOPHY SPECIALIST, BHARAT S 786.2 COUGH 07/22/2009 786.05 SHORTNESS OF BREATH 07/22/2009 786.2 COUGH 07/22/2009 MAVERICK PHILOSOPHY SPECIALIST, ZACHARIAH R 786.05 SHORTNESS OF BREATH 07/22/2009 MAVERICK PHILOSOPHY SPECIALIST, ZACHARIAH R 786.2 COUGH 07/22/2009 ALMONTE DDS, SAE 786.05 SHORTNESS OF BREATH 07/22/2009 ALMONTE DDS, SAE 786.2 COUGH 07/31/2009 OK CHAVIS, MAGDALENA V72.31 ROUTE INSPECTOR EXAM, ROUTINE 07/31/2009 MAGDALENA EUCEDA MD V72.31 ROUTE INSPECTOR EXAM, ROUTINE 07/31/2009 MAGDALENA EUCEDA MD V72.31 ROUTE INSPECTOR EXAM, ROUTINE 07/31/2009 V72.31 ROUTE INSPECTOR EXAM, ROUTINE 07/31/2009 MAGDALENA EUCEDA MD V72.31 ROUTE INSPECTOR EXAM, ROUTINE 07/31/2009 V72.31 ROUTE INSPECTOR EXAM, ROUTINE 07/31/2009 V72.31 ROUTE INSPECTOR EXAM, ROUTINE 07/31/2009 V72.31 ROUTE INSPECTOR EXAM, ROUTINE 07/31/2009 V72.31 ROUTE INSPECTOR EXAM, ROUTINE 07/31/2009 V72.31 ROUTE INSPECTOR EXAM, ROUTINE 07/31/2009 V72.31 ROUTE INSPECTOR EXAM, ROUTINE 07/31/2009 V72.31 ROUTE INSPECTOR EXAM, ROUTINE 07/31/2009 V72.31 ROUTE INSPECTOR EXAM, ROUTINE 07/31/2009 FELIBERTO GARCIA APRN V72.31 ROUTE INSPECTOR EXAM, ROUTINE 07/31/2009 MAGDALENA EUCEDA MD V72.31 ROUTE INSPECTOR EXAM, ROUTINE 07/31/2009 MAGDALENA EUCEDA MD V72.31 ROUTE INSPECTOR EXAM, ROUTINE 07/31/2009 ALLI HUNT MD V72.31 ROUTE INSPECTOR EXAM, ROUTINE 07/31/2009 MAGDALENA EUCEDA MD V72.31 ROUTE INSPECTOR EXAM, ROUTINE 07/31/2009 CURRIE DOAMELIA V72.31 ROUTE INSPECTOR EXAM, ROUTINE 07/31/2009 CURRIE DO, AMELIA K V72.31 ROUTE INSPECTOR EXAM, ROUTINE 07/31/2009 CURRIE DO, AMELIA K V72.31 ROUTE INSPECTOR EXAM, ROUTINE 07/31/2009 CURRIE DO, AMELIA K V72.31 ROUTE INSPECTOR EXAM, ROUTINE 07/31/2009 CURRIE DO, AMELIA K V72.31 ROUTE INSPECTOR EXAM, ROUTINE 07/31/2009 CHARITY PHILOSOPHY SPECIALIST, MARCI A V72.31 ROUTE INSPECTOR EXAM, ROUTINE 07/31/2009 MADL PHILOSOPHY SPECIALIST, JHONATAN L V72.31 ROUTE INSPECTOR EXAM, ROUTINE 07/31/2009 V72.31 ROUTE INSPECTOR EXAM, ROUTINE 07/31/2009 CURRIE DO, AMELIA K V72.31 ROUTE INSPECTOR EXAM, ROUTINE 07/31/2009 CURRIE DO, AMELIA K V72.31 ROUTE INSPECTOR EXAM, ROUTINE 07/31/2009 MADL PHILOSOPHY SPECIALIST, JHONATAN L V72.31 ROUTE INSPECTOR EXAM, ROUTINE 07/31/2009 MADL PHILOSOPHY SPECIALIST, JHONATAN L V72.31 ROUTE INSPECTOR EXAM, ROUTINE 07/31/2009 MADL PHILOSOPHY SPECIALIST, JHONATAN L V72.31 ROUTE INSPECTOR EXAM, ROUTINE 07/31/2009 CURRIE DO, AMELIA K V72.31 ROUTE INSPECTOR EXAM, ROUTINE 07/31/2009 MADL PHILOSOPHY SPECIALIST, JHONATAN L V72.31 ROUTE INSPECTOR EXAM, ROUTINE 07/31/2009 MADL PHILOSOPHY SPECIALIST, JHONATAN L V72.31 ROUTE INSPECTOR EXAM, ROUTINE 07/31/2009 MADL PHILOSOPHY SPECIALIST, JHONATAN L V72.31 ROUTE INSPECTOR EXAM, ROUTINE 07/31/2009 CURRIE DO, AMELIA K V72.31 ROUTE INSPECTOR EXAM, ROUTINE 07/31/2009 MADL PHILOSOPHY SPECIALIST, JHONATAN L V72.31 ROUTE INSPECTOR EXAM, ROUTINE 07/31/2009 MADL PHILOSOPHY SPECIALIST, JHONATAN L V72.31 ROUTE INSPECTOR EXAM, ROUTINE 07/31/2009 MAVERICK PHILOSOPHY SPECIALIST, ZACHARIAH R V72.31 ROUTE INSPECTOR EXAM, ROUTINE 07/31/2009 MADL PHILOSOPHY SPECIALIST, JHONATAN L V72.31 ROUTE INSPECTOR EXAM, ROUTINE 07/31/2009 MADL PHILOSOPHY SPECIALIST, JHONATAN L V72.31 ROUTE INSPECTOR EXAM, ROUTINE 07/31/2009 MADL PHILOSOPHY SPECIALIST, JHONATAN L V72.31 ROUTE INSPECTOR EXAM, ROUTINE 07/31/2009 MADL PHILOSOPHY SPECIALIST, JHONATAN L V72.31 ROUTE INSPECTOR EXAM, ROUTINE 07/31/2009 MADL PHILOSOPHY SPECIALIST, JHONATAN L V72.31 ROUTE INSPECTOR EXAM, ROUTINE 07/31/2009 MADL PHILOSOPHY SPECIALIST, JHONATAN L V72.31 ROUTE INSPECTOR EXAM, ROUTINE 07/31/2009 CURRIE DO, AMELIA K V72.31 ROUTE INSPECTOR EXAM, ROUTINE 07/31/2009 MADL PHILOSOPHY SPECIALIST, JHONATAN L V72.31 ROUTE INSPECTOR EXAM, ROUTINE 07/31/2009 BLANCHE PHILOSOPHY SPECIALIST, BHARAT S V72.31 ROUTE INSPECTOR EXAM, ROUTINE 07/31/2009 V72.31 ROUTE INSPECTOR EXAM, ROUTINE 07/31/2009 MAVERICK PHILOSOPHY SPECIALIST, ZACHARIAH R V72.31 ROUTE INSPECTOR EXAM, ROUTINE 07/31/2009 ALMONTE DDS, SAE V72.31 ROUTE INSPECTOR EXAM, ROUTINE 10/15/2009 MAGDALENA EUCEDA MD 719.08 [...] MARCI A 719.08 KNEE SWELLING 10/15/2009 MADL PHILOSOPHY SPECIALIST, JHONATAN L 719.08 KNEE SWELLING 10/15/2009 719.08 KNEE SWELLING 10/15/2009 CURRIE DO, AMELIA K 719.08 KNEE SWELLING 10/15/2009 CURRIE DO, AMELIA K 719.08 KNEE SWELLING 10/15/2009 MADL PHILOSOPHY SPECIALIST, JHONATAN L 719.08 KNEE SWELLING 10/15/2009 MADL PHILOSOPHY SPECIALIST, JHONATAN L 719.08 KNEE SWELLING 10/15/2009 MADL PHILOSOPHY SPECIALIST, JHONATAN L 719.08 KNEE SWELLING 10/15/2009 CURRIE DO, AMELIA K 719.08 KNEE SWELLING 10/15/2009 MADL PHILOSOPHY SPECIALIST, JHONATAN L 719.08 KNEE SWELLING 10/15/2009 MADL PHILOSOPHY SPECIALIST, JHONATAN L 719.08 KNEE SWELLING 10/15/2009 [facility] PHILOSOPHY SPECIALIST, JHONATAN L 719.08 KNEE SWELLING 10/15/2009 CURRIE DO, AMELIA K 719.08 KNEE SWELLING 10/15/2009 MADL PHILOSOPHY SPECIALIST, JHONATAN L 719.08 KNEE SWELLING 10/15/2009 [facility] PHILOSOPHY SPECIALIST, JHONATAN L 719.08 KNEE SWELLING 10/15/2009 MAVERICK PHILOSOPHY SPECIALIST, ZACHARIAH R 719.08 KNEE SWELLING 10/15/[facility] JHONATAN L 719.08 KNEE SWELLING 10/15/2009 [facility] PHILOSOPHY SPECIALIST, JHONATAN L 719.08 KNEE SWELLING 10/15/2009 MADL PHILOSOPHY SPECIALIST, JHONATAN L 719.08 KNEE SWELLING 10/15/2009 MADL PHILOSOPHY SPECIALIST, JHONATAN L 719.08 KNEE SWELLING 10/15/2009 MADL PHILOSOPHY SPECIALIST, JHONATAN L 719.08 KNEE SWELLING 10/15/2009 MADL PHILOSOPHY SPECIALIST, JHONATAN L 719.08 KNEE SWELLING 10/15/2009 CURRIE DO, AMELIA K 719.08 KNEE SWELLING 10/15/2009 MADL PHILOSOPHY SPECIALIST, JHONATAN L 719.08 KNEE SWELLING 10/15/2009 BLANCHE PHILOSOPHY SPECIALIST, BHARAT S 719.08 KNEE SWELLING 10/15/2009 719.08 [...] PAIN IN JOINT, LOWER LEG 10/21/2009 MADL PHILOSOPHY SPECIALIST, JHONATAN L 719.46 PAIN IN JOINT, LOWER LEG 10/21/2009 719.46 PAIN IN JOINT , LOWER LEG 10/21/2009 CURRIE DO, AMELIA K 719.46 PAIN IN JOINT, LOWER LEG 10/21/2009 CURRIE DO, AMELIA K 719.46 PAIN IN JOINT, LOWER LEG 10/21/2009 MADL PHILOSOPHY SPECIALIST, JHONATAN L 719.46 PAIN IN JOINT, LOWER LEG 10/21/2009 MADL PHILOSOPHY SPECIALIST, JHONATAN L 719.46 PAIN IN JOINT, LOWER LEG 10/21/2009 MADL PHILOSOPHY SPECIALIST, JHONATAN L 719.46 PAIN IN JOINT, LOWER LEG 10/21/2009 CURRIE DO, AMELIA K 719.46 PAIN IN JOINT, LOWER LEG 10/21/2009 MADL PHILOSOPHY SPECIALIST, JHONATAN L 719.46 PAIN IN JOINT, LOWER LEG 10/21/2009 MADL PHILOSOPHY SPECIALIST, JHONATAN L 719.46 PAIN IN JOINT, LOWER LEG 10/21/2009 MADL PHILOSOPHY SPECIALIST, JHONATAN L 719.46 PAIN IN JOINT, LOWER LEG 10/21/2009 CURRIE DO, AMELIA K 719.46 PAIN IN JOINT, LOWER LEG 10/21/2009 MADL PHILOSOPHY SPECIALIST, JHONATAN L 719.46 PAIN IN JOINT, LOWER LEG 10/21/2009 MADL PHILOSOPHY SPECIALIST, JHONATAN L 719.46 PAIN IN JOINT, LOWER LEG 10/21/2009 MAVERICK FUCHS, ZACHARIAH R 719.46 PAIN IN JOINT, LOWER LEG 10/21/2009 MADL PHILOSOPHY SPECIALIST, JHONATAN L 719.46 PAIN IN JOINT, LOWER LEG 10/21/2009 MADL PHILOSOPHY SPECIALIST, JHONATAN L 719.46 PAIN IN JOINT, LOWER LEG 10/21/2009 MADL PHILOSOPHY SPECIALIST, JHONATAN L 719.46 PAIN IN JOINT, LOWER LEG 10/21/2009 MADL PHILOSOPHY SPECIALIST, JHONATAN L 719.46 PAIN IN JOINT, LOWER LEG 10/21/2009 MADL PHILOSOPHY SPECIALIST, JHONATAN L 719.46 PAIN IN JOINT, LOWER LEG 10/21/2009 MADL PHILOSOPHY SPECIALIST, JHONATAN L 719.46 PAIN IN JOINT, LOWER LEG 10/21/2009 CURRIE DO, AMELIA K 719.46 PAIN IN JOINT, LOWER LEG 10/21/2009 XIOMARAJennifer PHILOSOPHY SPECIALIST, JHONATAN L 719.46 PAIN IN JOINT, LOWER [...] OSTEOARTHROSIS, LOCALIZED, PRIMARY, LOWER LEG 11/06/2009 MADL PHILOSOPHY SPECIALIST, JHONATAN L 715.16 OSTEOARTHROSIS, LOCALIZED, PRIMARY, LOWER LEG 11/06/2009 715.16 OSTEOARTHROSIS, LOCALIZED, PRIMARY, LOWER LEG 11/06/2009 CURRIE DO, AMELIA K 715.16 OSTEOARTHROSIS, LOCALIZED, PRIMARY, LOWER LEG 11/06/2009 CURRIE DO, AMELIA K 715.16 OSTEOARTHROSIS, LOCALIZED, PRIMARY, LOWER LEG 11/06/2009 MADL PHILOSOPHY SPECIALIST, JHONATAN L 715.16 OSTEOARTHROSIS, LOCALIZED, PRIMARY, LOWER LEG 11/06/2009 MADL PHILOSOPHY SPECIALIST, JHONATAN L 715.16 OSTEOARTHROSIS, LOCALIZED, PRIMARY, LOWER LEG 11/06/2009 MADL PHILOSOPHY SPECIALIST, JHONATAN L 715.16 OSTEOARTHROSIS, LOCALIZED, PRIMARY, LOWER LEG 11/06/2009 CURRIE DO, AMELIA K 715.16 OSTEOARTHROSIS, LOCALIZED, PRIMARY, LOWER LEG 11/06/2009 MADL PHILOSOPHY SPECIALIST, JHONATAN L 715.16 OSTEOARTHROSIS, LOCALIZED, PRIMARY, LOWER LEG 11/06/2009 MADL PHILOSOPHY SPECIALIST, JHONATAN L 715.16 OSTEOARTHROSIS, LOCALIZED, PRIMARY, LOWER LEG 11/06/2009 MADL PHILOSOPHY SPECIALIST, JHONATAN L 715.16 OSTEOARTHROSIS, LOCALIZED, PRIMARY, LOWER LEG 11/06/2009 CURRIE DO, AMELIA K 715.16 OSTEOARTHROSIS, LOCALIZED, PRIMARY, LOWER LEG 11/06/2009 MADL PHILOSOPHY SPECIALIST, JHONATAN L 715.16 OSTEOARTHROSIS, LOCALIZED, PRIMARY, LOWER LEG 11/06/2009 MADL PHILOSOPHY SPECIALIST, JHONATAN L 715.16 OSTEOARTHROSIS, LOCALIZED, PRIMARY, LOWER LEG 11/06/2009 MAVERICK PHILOSOPHY SPECIALIST, ZACHARIAH R 715.16 OSTEOARTHROSIS, LOCALIZED, PRIMARY, LOWER LEG 11/06/2009 MADL PHILOSOPHY SPECIALIST, JHONATAN L 715.16 OSTEOARTHROSIS, LOCALIZED, PRIMARY, LOWER LEG 11/06/2009 MADL PHILOSOPHY SPECIALIST, JHONATAN L 715.16 OSTEOARTHROSIS, LOCALIZED, PRIMARY, LOWER LEG 11/06/2009 MADL PHILOSOPHY SPECIALIST, JHONATAN L 715.16 OSTEOARTHROSIS, LOCALIZED, PRIMARY, LOWER LEG 11/06/2009 MADL PHILOSOPHY SPECIALIST, JHONATAN L 715.16 OSTEOARTHROSIS, LOCALIZED, PRIMARY, LOWER LEG 11/06/2009 MADL PHILOSOPHY SPECIALIST, JHONATAN L 715.16 OSTEOARTHROSIS, LOCALIZED, PRIMARY, LOWER LEG 11/06/2009 MADL PHILOSOPHY SPECIALIST, JHONATAN L 715.16 OSTEOARTHROSIS, LOCALIZED, PRIMARY, LOWER LEG 11/06/2009 ROSEY DO, AMELIA K 715.16 OSTEOARTHROSIS, LOCALIZED, PRIMARY, LOWER LEG 11/06/2009 MADL PHILOSOPHY SPECIALIST, JHONATAN L 715.16 OSTEOARTHROSIS, LOCALIZED, PRIMARY, LOWER LEG 11/06/2009 BLANCHE PHILOSOPHY SPECIALIST, BHARAT S 715.16 OSTEOARTHROSIS, LOCALIZED, PRIMARY, LOWER LEG 11/06/2009 715.16 OSTEOARTHROSIS, LOCALIZED, PRIMARY, LOWER LEG 11/06/2009 MAVERICK PHILOSOPHY SPECIALIST, ZACHARIAH R 715.16 OSTEOARTHROSIS, LOCALIZED, PRIMARY, LOWER [...] CHRONIC BRONCHITIS, WITH (ACUTE) EXACERBATION 12/03/2009 MADL PHILOSOPHY SPECIALIST, JHONATAN L 491.21 OBSTRUCTIVE CHRONIC BRONCHITIS, WITH (ACUTE) EXACERBATION 12/03/2009 491.21 OBSTRUCTIVE CHRONIC BRONCHITIS, WITH (ACUTE) EXACERBATION 12/03/2009 CURRIE DO, AMELIA K 491.21 OBSTRUCTIVE CHRONIC BRONCHITIS, WITH (ACUTE) EXACERBATION 12/03/2009 CURRIE DO, AMELIA K 491.21 OBSTRUCTIVE CHRONIC BRONCHITIS, WITH (ACUTE) EXACERBATION 12/03/2009 MADL PHILOSOPHY SPECIALIST, JHONATAN L 491.21 OBSTRUCTIVE CHRONIC BRONCHITIS, WITH (ACUTE) EXACERBATION 12/03/2009 MADL PHILOSOPHY SPECIALIST, JHONATAN L 491.21 OBSTRUCTIVE CHRONIC BRONCHITIS, WITH (ACUTE) EXACERBATION 12/03/2009 MADL PHILOSOPHY SPECIALIST, JHONATAN L 491.21 OBSTRUCTIVE CHRONIC BRONCHITIS, WITH (ACUTE) EXACERBATION 12/03/2009 CURRIE DO, AMELIA K 491.21 OBSTRUCTIVE CHRONIC BRONCHITIS, WITH (ACUTE) EXACERBATION 12/03/2009 MADL PHILOSOPHY SPECIALIST, JHONATAN L 491.21 OBSTRUCTIVE CHRONIC BRONCHITIS, WITH (ACUTE) EXACERBATION 12/03/2009 MADL PHILOSOPHY SPECIALIST, JHONATAN L 491.21 OBSTRUCTIVE CHRONIC BRONCHITIS, WITH (ACUTE) EXACERBATION 12/03/2009 MADL PHILOSOPHY SPECIALIST, JHONATAN L 491.21 OBSTRUCTIVE CHRONIC BRONCHITIS, WITH (ACUTE) EXACERBATION 12/03/2009 CURRIE DO, AMELIA K 491.21 OBSTRUCTIVE CHRONIC BRONCHITIS, WITH (ACUTE) EXACERBATION 12/03/2009 MADL PHILOSOPHY SPECIALIST, JHONATAN L 491.21 OBSTRUCTIVE CHRONIC BRONCHITIS, WITH (ACUTE) EXACERBATION 12/03/2009 MADL PHILOSOPHY SPECIALIST, JHONATAN L 491.21 OBSTRUCTIVE CHRONIC BRONCHITIS, WITH (ACUTE) EXACERBATION 12/03/2009 MAVERICK PHILOSOPHY SPECIALIST, ZACHARIAH R 491.21 OBSTRUCTIVE CHRONIC BRONCHITIS, WITH (ACUTE) EXACERBATION 12/03/2009 MADL PHILOSOPHY SPECIALIST, JHONATAN L 491.21 OBSTRUCTIVE CHRONIC BRONCHITIS, WITH (ACUTE) EXACERBATION 12/03/2009 MADL PHILOSOPHY SPECIALIST, JHONATAN L 491.21 OBSTRUCTIVE CHRONIC BRONCHITIS, WITH (ACUTE) EXACERBATION 12/03/2009 MADL PHILOSOPHY SPECIALIST, JHONATAN L 491.21 OBSTRUCTIVE CHRONIC BRONCHITIS, WITH (ACUTE) EXACERBATION 12/03/2009 MADL PHILOSOPHY SPECIALIST, JHONATAN L 491.21 OBSTRUCTIVE CHRONIC BRONCHITIS, WITH (ACUTE) EXACERBATION 12/03/2009 MADL PHILOSOPHY SPECIALIST, JHONATAN L 491.21 OBSTRUCTIVE CHRONIC BRONCHITIS, WITH (ACUTE) EXACERBATION 12/03/2009 MADL PHILOSOPHY SPECIALIST, JHONATAN L 491.21 OBSTRUCTIVE CHRONIC BRONCHITIS, WITH (ACUTE) EXACERBATION 12/03/2009 AMELIA CURRIE DO 491.21 OBSTRUCTIVE CHRONIC BRONCHITIS, WITH (ACUTE) EXACERBATION 12/03/2009 MADL PHILOSOPHY SPECIALIST, JHONATAN L 491.21 OBSTRUCTIVE CHRONIC BRONCHITIS, WITH (ACUTE) EXACERBATION 12/03/2009 BLANCHE PHILOSOPHY SPECIALIST, BHARAT S 491.21 OBSTRUCTIVE CHRONIC BRONCHITIS, WITH (ACUTE) EXACERBATION 12/03/2009 491.21 OBSTRUCTIVE CHRONIC BRONCHITIS, WITH (ACUTE) EXACERBATION 12/03/2009 MAVERICK PHILOSOPHY SPECIALIST, ZACHARIAH R 491.21 OBSTRUCTIVE CHRONIC BRONCHITIS, WITH [...] AMELIA K 477.9 ALLERGIC RHINITIS 01/01/2010 CHARITY PHILOSOPHY SPECIALIST, MARCI A 477.9 ALLERGIC RHINITIS 01/01/2010 MADL PHILOSOPHY SPECIALIST, JHONATAN L 477.9 ALLERGIC RHINITIS 01/01/2010 477.9 ALLERGIC RHINITIS 01/01/2010 CURRIE DO, AMELIA K 477.9 ALLERGIC RHINITIS 01/01/2010 CURRIE DO, AMELIA K 477.9 ALLERGIC RHINITIS 01/01/2010 MADL PHILOSOPHY SPECIALIST, JHONATAN L 477.9 ALLERGIC RHINITIS 01/01/2010 MADL PHILOSOPHY SPECIALIST, JHONATAN L 477.9 ALLERGIC RHINITIS 01/01/2010 MADL PHILOSOPHY SPECIALIST, JHONATAN L 477.9 ALLERGIC RHINITIS 01/01/2010 CURRIE DO, AMELIA K 477.9 ALLERGIC RHINITIS 01/01/2010 MADL PHILOSOPHY SPECIALIST, JHONATAN L 477.9 ALLERGIC RHINITIS 01/01/2010 MADL PHILOSOPHY SPECIALIST, JHONATAN L 477.9 ALLERGIC RHINITIS 01/01/2010 MADL PHILOSOPHY SPECIALIST, JHONATAN L 477.9 ALLERGIC RHINITIS 01/01/2010 CURRIE DO, AMELIA K 477.9 ALLERGIC RHINITIS 01/01/2010 MADL PHILOSOPHY SPECIALIST, JHONATAN L 477.9 ALLERGIC RHINITIS 01/01/2010 MADL PHILOSOPHY SPECIALIST, JHONATAN L 477.9 ALLERGIC RHINITIS 01/01/2010 MAVERICK PHILOSOPHY SPECIALIST, ZACHARIAH R 477.9 ALLERGIC RHINITIS 01/01/2010 MADL PHILOSOPHY SPECIALIST, JHONATAN L 477.9 ALLERGIC RHINITIS 01/01/2010 MADL PHILOSOPHY SPECIALIST, JHONATAN L 477.9 ALLERGIC RHINITIS 01/01/2010 MADL PHILOSOPHY SPECIALIST, JHONATAN L 477.9 ALLERGIC RHINITIS 01/01/2010 MADL PHILOSOPHY SPECIALIST, JHONATAN L 477.9 ALLERGIC RHINITIS 01/01/2010 MADL PHILOSOPHY SPECIALIST, JHONATAN L 477.9 ALLERGIC RHINITIS 01/01/2010 MADL PHILOSOPHY SPECIALIST, JHONATAN L 477.9 ALLERGIC RHINITIS 01/01/2010 CURRIE DO, AMELIA K 477.9 ALLERGIC RHINITIS 01/01/2010 MADL PHILOSOPHY SPECIALIST, JHONATAN L 477.9 ALLERGIC RHINITIS 01/01/2010 BLANCHE PHILOSOPHY SPECIALIST, BHARAT S 477.9 ALLERGIC RHINITIS 01/01/2010 477.9 ALLERGIC RHINITIS 01/01/2010 MAVERICK PHILOSOPHY SPECIALIST, ZACHARIAH R 477.9 ALLERGIC RHINITIS 01/01/2010 ALMONTE [...] LUMP OR MASS IN BREAST 01/27/2010 CHARITY PHILOSOPHY SPECIALIST, MARCI A 611.72 LUMP OR MASS IN BREAST 01/27/2010 MADL PHILOSOPHY SPECIALIST, JHONATAN L 611.72 LUMP OR MASS IN BREAST 01/27/2010 611.72 LUMP OR MASS IN BREAST 01/27/2010 CURRIE DO, AMELIA K 611.72 LUMP OR MASS IN BREAST 01/27/2010 CURRIE DO, AMELIA K 611.72 LUMP OR MASS IN BREAST 01/27/2010 MADL PHILOSOPHY SPECIALIST, JHONATAN L 611.72 LUMP OR MASS IN BREAST 01/27/2010 MADL PHILOSOPHY SPECIALIST, JHONATAN L 611.72 LUMP OR MASS IN BREAST 01/27/2010 MADL PHILOSOPHY SPECIALIST, JHONATAN L 611.72 LUMP OR MASS IN BREAST 01/27/2010 CURRIE DO, AMELIA K 611.72 LUMP OR MASS IN BREAST 01/27/2010 MADL PHILOSOPHY SPECIALIST, JHONATAN L 611.72 LUMP OR MASS IN BREAST 01/27/2010 MADL PHILOSOPHY SPECIALIST, JHONATAN L 611.72 LUMP OR MASS IN BREAST 01/27/2010 MADL PHILOSOPHY SPECIALIST, JHONATAN L 611.72 LUMP OR MASS IN BREAST 01/27/2010 CURRIE DO, AMELIA K 611.72 LUMP OR MASS IN BREAST 01/27/2010 MADL PHILOSOPHY SPECIALIST, JHONATAN L 611.72 LUMP OR MASS IN BREAST 01/27/2010 MADL PHILOSOPHY SPECIALIST, JHONATAN L 611.72 LUMP OR MASS IN BREAST 01/27/2010 MAVERICK PHILOSOPHY SPECIALIST, ZACHARIAH R 611.72 LUMP OR MASS IN BREAST 01/27/2010 MADL PHILOSOPHY SPECIALIST, JHONATAN L 611.72 LUMP OR MASS IN BREAST 01/27/2010 MADL PHILOSOPHY SPECIALIST, JHONATAN L 611.72 LUMP OR MASS IN BREAST 01/27/2010 MADL PHILOSOPHY SPECIALIST, JHONATAN L 611.72 LUMP OR MASS IN BREAST 01/27/2010 MADL PHILOSOPHY SPECIALIST, JHONATAN L 611.72 LUMP OR MASS IN BREAST 01/27/2010 MADL PHILOSOPHY SPECIALIST, JHONATAN L 611.72 LUMP OR MASS IN BREAST 01/27/2010 MADL PHILOSOPHY SPECIALIST, JHONATAN L 611.72 LUMP OR MASS IN BREAST 01/27/2010 CURRIE DO, AMELIA K 611.72 LUMP OR MASS IN BREAST 01/27/2010 MADL PHILOSOPHY SPECIALIST, JHONATAN L 611.72 LUMP OR MASS IN BREAST 01/27/2010 BLANCHE PHILOSOPHY SPECIALIST, BHARAT S 611.72 LUMP OR MASS IN BREAST 01/27/2010 611.72 LUMP OR MASS IN BREAST 01/27/2010 MAVERICK PHILOSOPHY SPECIALIST, ZACHARIAH R 611.72 LUMP OR MASS IN [...] 05/13/2010 788.41 urinary frequency increased 05/13/2010 RAJOTTE PHILOSOPHY SPECIALIST, FELIBERTO A 724.5 BACKACHE 05/13/2010 RAJOTTE PHILOSOPHY SPECIALIST, FELIBERTO A 788.41 urinary frequency increased 05/13/2010 [...] K 788.41 URINARY FREQUENCY INCREASED 05/13/2010 CHARITY PHILOSOPHY SPECIALIST, MARCI A 724.5 BACKACHE 05/13/2010 CHARITY PHILOSOPHY SPECIALIST, MARCI A 788.41 URINARY FREQUENCY INCREASED 05/13/2010 MADL PHILOSOPHY SPECIALIST, JHONATAN L 724.5 BACKACHE 05/13/2010 MADL PHILOSOPHY SPECIALIST, JHONATAN L 788.41 URINARY FREQUENCY INCREASED 05/13/2010 724.5 BACKACHE 05/13/2010 788.41 URINARY FREQUENCY INCREASED 05/13/2010 CURRIE DO, AMELIA K 724.5 BACKACHE 05/13/2010 CURRIE DO, AMELIA K 788.41 URINARY FREQUENCY INCREASED 05/13/2010 CURRIE DO, AMELIA K 724.5 BACKACHE 05/13/2010 CURRIE DO, AMELIA K 788.41 URINARY FREQUENCY INCREASED 05/13/2010 MADL PHILOSOPHY SPECIALIST, JHONATAN L 724.5 BACKACHE 05/13/2010 MADL PHILOSOPHY SPECIALIST, JHONATAN L 788.41 URINARY FREQUENCY INCREASED 05/13/2010 MADL PHILOSOPHY SPECIALIST, JHONATAN L 724.5 BACKACHE 05/13/2010 MADL PHILOSOPHY SPECIALIST, JHONATAN L 788.41 URINARY FREQUENCY INCREASED 05/13/2010 MADL PHILOSOPHY SPECIALIST, JHONATAN L 724.5 BACKACHE 05/13/2010 MADL PHILOSOPHY SPECIALIST, JHONATAN L 788.41 URINARY FREQUENCY INCREASED 05/13/2010 CURRIE DO, AMELIA K 724.5 BACKACHE 05/13/2010 CURRIE DO, AMELIA K 788.41 URINARY FREQUENCY INCREASED 05/13/2010 MADL PHILOSOPHY SPECIALIST, JHONATAN L 724.5 BACKACHE 05/13/2010 MADL PHILOSOPHY SPECIALIST, JHONATAN L 788.41 URINARY FREQUENCY INCREASED 05/13/2010 MADL PHILOSOPHY SPECIALIST, JHONATAN L 724.5 BACKACHE 05/13/2010 MADL PHILOSOPHY SPECIALIST, JHONATAN L 788.41 URINARY FREQUENCY INCREASED 05/13/2010 MADL PHILOSOPHY SPECIALIST, JHONATAN L 724.5 BACKACHE 05/13/2010 MADL PHILOSOPHY SPECIALIST, JHONATAN L 788.41 URINARY FREQUENCY INCREASED 05/13/2010 CURRIE DO, AMELIA K 724.5 BACKACHE 05/13/2010 CURRIE DO, AMELIA K 788.41 URINARY FREQUENCY INCREASED 05/13/2010 MADL PHILOSOPHY SPECIALIST, JHONATAN L 724.5 BACKACHE 05/13/2010 MADL PHILOSOPHY SPECIALIST, JHONATAN L 788.41 URINARY FREQUENCY INCREASED 05/13/2010 MADL PHILOSOPHY SPECIALIST, JHONATAN L 724.5 BACKACHE 05/13/2010 MADL PHILOSOPHY SPECIALIST, JHONATAN L 788.41 URINARY FREQUENCY INCREASED 05/13/2010 MAVERICK PHILOSOPHY SPECIALIST, ZACHARIAH R 724.5 BACKACHE 05/13/2010 MAVERICK PHILOSOPHY SPECIALIST, ZACHARIAH R 788.41 URINARY FREQUENCY INCREASED 05/13/2010 MADL PHILOSOPHY SPECIALIST, JHONATAN L 724.5 BACKACHE 05/13/2010 MADL PHILOSOPHY SPECIALIST, JHONATAN L 788.41 URINARY FREQUENCY INCREASED 05/13/2010 MADL PHILOSOPHY SPECIALIST, JHONATAN L 724.5 BACKACHE 05/13/2010 MADL PHILOSOPHY SPECIALIST, JHONATAN L 788.41 URINARY FREQUENCY INCREASED 05/13/2010 MADL PHILOSOPHY SPECIALIST, JHONATAN L 724.5 BACKACHE 05/13/2010 MADL PHILOSOPHY SPECIALIST, JHONATAN L 788.41 URINARY FREQUENCY INCREASED 05/13/2010 MADL PHILOSOPHY SPECIALIST, JHONATAN L 724.5 BACKACHE 05/13/2010 MADL PHILOSOPHY SPECIALIST, JHONATAN L 788.41 URINARY FREQUENCY INCREASED 05/13/2010 MADL PHILOSOPHY SPECIALIST, JHONATAN L 724.5 BACKACHE 05/13/2010 MADL PHILOSOPHY SPECIALIST, JHONATAN L 788.41 URINARY FREQUENCY INCREASED 05/13/2010 MADL PHILOSOPHY SPECIALIST, JHONATAN L 724.5 BACKACHE 05/13/2010 MADL PHILOSOPHY SPECIALIST, JHONATAN L 788.41 URINARY FREQUENCY INCREASED 05/13/2010 CURRIE DO, AMELIA K 724.5 BACKACHE 05/13/2010 CURRIE DO, AMELIA K 788.41 URINARY FREQUENCY INCREASED 05/13/2010 MADL PHILOSOPHY SPECIALIST, JHONATAN L 724.5 BACKACHE 05/13/2010 MADL PHILOSOPHY SPECIALIST, JHONATAN L 788.41 URINARY FREQUENCY INCREASED 05/13/2010 BLANCHE PHILOSOPHY SPECIALIST, BHARAT S 724.5 BACKACHE 05/13/2010 BLANCHE PHILOSOPHY SPECIALIST, BHARAT S 788.41 URINARY FREQUENCY INCREASED 05/13/2010 724.5 BACKACHE 05/13/2010 788.41 URINARY FREQUENCY INCREASED 05/13/2010 MAVERICK PHILOSOPHY SPECIALIST, ZACHARIAH R 724.5 BACKACHE 05/13/2010 MAVERICK PHILOSOPHY SPECIALIST, ZACHARIAH R 788.41 URINARY FREQUENCY INCREASED 05/13/2010 [...] AMELIA K 917.7 FOREIGN BODY-SUPERFICIAL 05/22/2010 CHARITY PHILOSOPHY SPECIALIST, MARCI A 558.9 GASTROENTERITIS NONINFECTIOUS 05/22/2010 CHARITY PHILOSOPHY SPECIALIST, MARCI A 917.7 FOREIGN BODY-SUPERFICIAL 05/22/2010 MADL PHILOSOPHY SPECIALIST, JHONATAN L 558.9 GASTROENTERITIS NONINFECTIOUS 05/22/2010 MADL PHILOSOPHY SPECIALIST, JHONATAN L 917.7 FOREIGN BODY-SUPERFICIAL 05/22/2010 558.9 GASTROENTERITIS NONINFECTIOUS 05/22/2010 917.7 FOREIGN BODY- SUPERFICIAL 05/22/2010 CURRIE DO, AMELIA K 558.9 GASTROENTERITIS NONINFECTIOUS 05/22/2010 CURRIE DO, AMELIA K 917.7 FOREIGN BODY-SUPERFICIAL 05/22/2010 CURRIE DO, AMELIA K 558.9 GASTROENTERITIS NONINFECTIOUS 05/22/2010 CURRIE DO, AMELIA K 917.7 FOREIGN BODY-SUPERFICIAL 05/22/2010 MADL PHILOSOPHY SPECIALIST, JHONATAN L 558.9 GASTROENTERITIS NONINFECTIOUS 05/22/2010 MADL PHILOSOPHY SPECIALIST, JHONATAN L 917.7 FOREIGN BODY-SUPERFICIAL 05/22/2010 MADL PHILOSOPHY SPECIALIST, JHONATAN L 558.9 GASTROENTERITIS NONINFECTIOUS 05/22/2010 MADL PHILOSOPHY SPECIALIST, JHONATAN L 917.7 FOREIGN BODY-SUPERFICIAL 05/22/2010 MADL PHILOSOPHY SPECIALIST, JHONATAN L 558.9 GASTROENTERITIS NONINFECTIOUS 05/22/2010 MADL PHILOSOPHY SPECIALIST, JHONATAN L 917.7 FOREIGN BODY-SUPERFICIAL 05/22/2010 CURRIE DO, AMELIA K 558.9 GASTROENTERITIS NONINFECTIOUS 05/22/2010 CURRIE DO, AMELIA K 917.7 FOREIGN BODY-SUPERFICIAL 05/22/2010 MADL PHILOSOPHY SPECIALIST, JHONATAN L 558.9 GASTROENTERITIS NONINFECTIOUS 05/22/2010 MADL PHILOSOPHY SPECIALIST, JHONATAN L 917.7 FOREIGN BODY-SUPERFICIAL 05/22/2010 MADL PHILOSOPHY SPECIALIST, JHONATAN L 558.9 GASTROENTERITIS NONINFECTIOUS 05/22/2010 MADL PHILOSOPHY SPECIALIST, JHONATAN L 917.7 FOREIGN BODY-SUPERFICIAL 05/22/2010 MADL PHILOSOPHY SPECIALIST, JHONATAN L 558.9 GASTROENTERITIS NONINFECTIOUS 05/22/2010 MADL PHILOSOPHY SPECIALIST, JHONATAN L 917.7 FOREIGN BODY-SUPERFICIAL 05/22/2010 CURRIE DO, AMELIA K 558.9 GASTROENTERITIS NONINFECTIOUS 05/22/2010 CURRIE DO, AMELIA K 917.7 FOREIGN BODY-SUPERFICIAL 05/22/2010 MADL PHILOSOPHY SPECIALIST, JHONATAN L 558.9 GASTROENTERITIS NONINFECTIOUS 05/22/2010 MADL PHILOSOPHY SPECIALIST, JHONATAN L 917.7 FOREIGN BODY-SUPERFICIAL 05/22/2010 MADL PHILOSOPHY SPECIALIST, JHONATAN L 558.9 GASTROENTERITIS NONINFECTIOUS 05/22/2010 MADL PHILOSOPHY SPECIALIST, JHONATAN L 917.7 FOREIGN BODY-SUPERFICIAL 05/22/2010 MAVERICK PHILOSOPHY SPECIALIST, ZACHARIAH R 558.9 GASTROENTERITIS NONINFECTIOUS 05/22/2010 MAVERICK PHILOSOPHY SPECIALIST, ZACHARIAH R 917.7 FOREIGN BODY-SUPERFICIAL 05/22/2010 MADL PHILOSOPHY SPECIALIST, JHONATAN L 558.9 GASTROENTERITIS NONINFECTIOUS 05/22/2010 MADL PHILOSOPHY SPECIALIST, JHONATAN L 917.7 FOREIGN BODY-SUPERFICIAL 05/22/2010 MADL PHILOSOPHY SPECIALIST, JHONATAN L 558.9 GASTROENTERITIS NONINFECTIOUS 05/22/2010 MADL PHILOSOPHY SPECIALIST, JHONATAN L 917.7 FOREIGN BODY-SUPERFICIAL 05/22/2010 MADL PHILOSOPHY SPECIALIST, JHONATAN L 558.9 GASTROENTERITIS NONINFECTIOUS 05/22/2010 MADL PHILOSOPHY SPECIALIST, JHONATAN L 917.7 FOREIGN BODY-SUPERFICIAL 05/22/2010 MADL PHILOSOPHY SPECIALIST, JHONATAN L 558.9 GASTROENTERITIS NONINFECTIOUS 05/22/2010 MADL PHILOSOPHY SPECIALIST, JHONATAN L 917.7 FOREIGN BODY-SUPERFICIAL 05/22/2010 MADL PHILOSOPHY SPECIALIST, JHONATAN L 558.9 GASTROENTERITIS NONINFECTIOUS 05/22/2010 MADL PHILOSOPHY SPECIALIST, JHONATAN L 917.7 FOREIGN BODY-SUPERFICIAL 05/22/2010 MADL PHILOSOPHY SPECIALIST, JHONATAN L 558.9 GASTROENTERITIS NONINFECTIOUS 05/22/2010 MADL PHILOSOPHY SPECIALIST, JHONATAN L 917.7 FOREIGN BODY-SUPERFICIAL 05/22/2010 CURRIE DO, AMELIA K 558.9 GASTROENTERITIS NONINFECTIOUS 05/22/2010 CURRIE DO, AMELIA K 917.7 FOREIGN BODY-SUPERFICIAL 05/22/2010 MADL PHILOSOPHY SPECIALIST, JHONATAN L 558.9 GASTROENTERITIS NONINFECTIOUS 05/22/2010 MADL PHILOSOPHY SPECIALIST, JHONATAN L 917.7 FOREIGN BODY-SUPERFICIAL 05/22/2010 BLANCHE PHILOSOPHY SPECIALIST, BHARAT S 558.9 GASTROENTERITIS NONINFECTIOUS 05/22/2010 BLANCHE PHILOSOPHY SPECIALIST, BHARAT S 917.7 FOREIGN BODY-SUPERFICIAL 05/22/2010 558.9 GASTROENTERITIS NONINFECTIOUS 05/22/2010 917.7 FOREIGN BODY- SUPERFICIAL 05/22/2010 MAVERICK PHILOSOPHY SPECIALIST, ZACHARIAH R 558.9 GASTROENTERITIS NONINFECTIOUS 05/22/2010 MAVERICK PHILOSOPHY SPECIALIST, ZACHARIAH R 917.7 FOREIGN BODY-SUPERFICIAL 05/22/2010 SUZY [...] DO, AMELIA K 787.91 DIARRHEA 05/25/2010 CHARITY PHILOSOPHY SPECIALIST, MARCI A 787.91 DIARRHEA 05/25/2010 MADL PHILOSOPHY SPECIALIST, JHONATAN L 787.91 DIARRHEA 05/25/2010 787.91 DIARRHEA 05/25/2010 CURRIE DO, AMLEIA K 787.91 DIARRHEA 05/25/2010 CURIRE DO, AMELIA K 787.91 DIARRHEA 05/25/2010 MADL PHILOSOPHY SPECIALIST, JHONATAN L 787.91 DIARRHEA 05/25/2010 MADL PHILOSOPHY SPECIALIST, JHONATAN L 787.91 DIARRHEA 05/25/2010 MADL PHILOSOPHY SPECIALIST, JHONATAN L 787.91 DIARRHEA 05/25/2010 CURRIE DO, AMELIA K 787.91 DIARRHEA 05/25/2010 MADL PHILOSOPHY SPECIALIST, JHONATAN L 787.91 DIARRHEA 05/25/2010 MADL PHILOSOPHY SPECIALIST, JHONATAN L 787.91 DIARRHEA 05/25/2010 MADL PHILOSOPHY SPECIALIST, JHONATAN L 787.91 DIARRHEA 05/25/2010 CURRIE DO, AMELIA K 787.91 DIARRHEA 05/25/2010 MADL PHILOSOPHY SPECIALIST, JHONATAN L 787.91 DIARRHEA 05/25/2010 MADL PHILOSOPHY SPECIALIST, JHONATAN L 787.91 DIARRHEA 05/25/2010 MAVERICK PHILOSOPHY SPECIALIST, ZACHARIAH R 787.91 DIARRHEA 05/25/2010 MADL PHILOSOPHY SPECIALIST, JHONATAN L 787.91 DIARRHEA 05/25/2010 MADL PHILOSOPHY SPECIALIST, JHONATAN L 787.91 DIARRHEA 05/25/2010 MADL PHILOSOPHY SPECIALIST, JHONATAN L 787.91 DIARRHEA 05/25/2010 MADL PHILOSOPHY SPECIALIST, JHONATAN L 787.91 DIARRHEA 05/25/2010 MADL PHILOSOPHY SPECIALIST, JHONATAN L 787.91 DIARRHEA 05/25/2010 MADL PHILOSOPHY SPECIALIST, JHONATAN L 787.91 DIARRHEA 05/25/2010 CURRIE DO, AMELIA K 787.91 DIARRHEA 05/25/2010 MADL PHILOSOPHY SPECIALIST, JHONATAN L 787.91 DIARRHEA 05/25/2010 BLANCHE PHILOSOPHY SPECIALIST, BHARAT S 787.91 DIARRHEA 05/25/2010 787.91 DIARRHEA 05/25/2010 MAVERICK PHILOSOPHY SPECIALIST, ZACHARIAH R 787.91 DIARRHEA 05/25/2010 SUZY DDS, [...] ACUTE 06/09/2010 466.0 BRONCHITIS, ACUTE 06/09/2010 RAJOTTE PHILOSOPHY SPECIALIST, FELIBERTO A 466.0 BRONCHITIS, ACUTE 06/09/2010 OK [...] MARCI A 466.0 BRONCHITIS, ACUTE 06/09/2010 MADL PHILOSOPHY SPECIALIST, JHONATAN L 466.0 BRONCHITIS, ACUTE 06/09/2010 466.0 BRONCHITIS, ACUTE 06/09/2010 CURRIE DO, AMELIA K 466.0 BRONCHITIS, ACUTE 06/09/2010 CURRIE DO, AMELIA K 466.0 BRONCHITIS, ACUTE 06/09/2010 MADL PHILOSOPHY SPECIALIST, JHONATAN L 466.0 BRONCHITIS, ACUTE 06/09/2010 MADL PHILOSOPHY SPECIALIST, JHONATAN L 466.0 BRONCHITIS, ACUTE 06/09/2010 MADL PHILOSOPHY SPECIALIST, JHONATAN L 466.0 BRONCHITIS, ACUTE 06/09/2010 CURRIE DO, AMELIA K 466.0 BRONCHITIS, ACUTE 06/09/2010 MADL PHILOSOPHY SPECIALIST, JHONATAN L 466.0 BRONCHITIS, ACUTE 06/09/2010 MADL PHILOSOPHY SPECIALIST, JHONATAN L 466.0 BRONCHITIS, ACUTE 06/09/2010 MADL PHILOSOPHY SPECIALIST, JHONATAN L 466.0 BRONCHITIS, ACUTE 06/09/2010 CURRIE DO, AMELIA K 466.0 BRONCHITIS, ACUTE 06/09/2010 MADL PHILOSOPHY SPECIALIST, JHONATAN L 466.0 BRONCHITIS, ACUTE 06/09/2010 MADL PHILOSOPHY SPECIALIST, JHONATAN L 466.0 BRONCHITIS, ACUTE 06/09/2010 MAVERICK PHILOSOPHY SPECIALIST, ZACHARIAH R 466.0 BRONCHITIS, ACUTE 06/09/2010 MADL PHILOSOPHY SPECIALIST, JHONATAN L 466.0 BRONCHITIS, ACUTE 06/09/2010 MADL PHILOSOPHY SPECIALIST, JHONATAN L 466.0 BRONCHITIS, ACUTE 06/09/2010 MADL PHILOSOPHY SPECIALIST, JHONATAN L 466.0 BRONCHITIS, ACUTE 06/09/2010 MADL PHILOSOPHY SPECIALIST, JHONATAN L 466.0 BRONCHITIS, ACUTE 06/09/2010 MADL PHILOSOPHY SPECIALIST, JHONATAN L 466.0 BRONCHITIS, ACUTE 06/09/2010 MADL PHILOSOPHY SPECIALIST, JHONATAN L 466.0 BRONCHITIS, ACUTE 06/09/2010 CURRIE DO, AMELIA K 466.0 BRONCHITIS, ACUTE 06/09/2010 MADL PHILOSOPHY SPECIALIST, JHONATAN L 466.0 BRONCHITIS, ACUTE 06/09/2010 BLANCHE PHILOSOPHY SPECIALIST, BHARAT S 466.0 BRONCHITIS, ACUTE 06/09/2010 466.0 BRONCHITIS, ACUTE 06/09/2010 MAVERICK PHILOSOPHY SPECIALIST, ZACHARIAH R 466.0 BRONCHITIS, ACUTE 06/09/2010 ALMONTE [...] K 724.2 lower back pain 07/14/2010 CHARITY PHILOSOPHY SPECIALIST, MARCI A 461.9 SINUSITIS ACUTE 07/14/2010 CHARITY PHILOSOPHY SPECIALIST, MARCI A 599.0 URINARY TRACT INFECTION 07/14/2010 CHARITY PHILOSOPHY SPECIALIST, MARCI A 625.6 STRESS INCONTINENCE FEMALE 07/14/2010 CHARITY PHILOSOPHY SPECIALIST, MARCI A 724.2 lower back pain 07/14/2010 MADL PHILOSOPHY SPECIALIST, JHONATAN L 461.9 SINUSITIS ACUTE 07/14/2010 MADL PHILOSOPHY SPECIALIST, JHONATAN L 599.0 URINARY TRACT INFECTION 07/14/2010 MADL PHILOSOPHY SPECIALIST, JHONATAN L 625.6 STRESS INCONTINENCE FEMALE 07/14/2010 MADL PHILOSOPHY SPECIALIST, JHONATAN L 724.2 lower back pain 07/14/2010 [...] K 724.2 lower back pain 07/14/2010 MADL PHILOSOPHY SPECIALIST, JHONATAN L 461.9 SINUSITIS ACUTE 07/14/2010 MADL PHILOSOPHY SPECIALIST, JHONATAN L 599.0 URINARY TRACT INFECTION 07/14/2010 MADL PHILOSOPHY SPECIALIST, JHONATAN L 625.6 STRESS INCONTINENCE FEMALE 07/14/2010 MADL PHILOSOPHY SPECIALIST, JHONATAN L 724.2 lower back pain 07/14/2010 MADL PHILOSOPHY SPECIALIST, JHONATAN L 461.9 SINUSITIS ACUTE 07/14/2010 MADL PHILOSOPHY SPECIALIST, JHONATAN L 599.0 URINARY TRACT INFECTION 07/14/2010 MADL PHILOSOPHY SPECIALIST, JHONATAN L 625.6 STRESS INCONTINENCE FEMALE 07/14/2010 MADL PHILOSOPHY SPECIALIST, JHONATAN L 724.2 lower back pain 07/14/2010 MADL PHILOSOPHY SPECIALIST, JHONATAN L 461.9 SINUSITIS ACUTE 07/14/2010 MADL PHILOSOPHY SPECIALIST, JHONATAN L 599.0 URINARY TRACT INFECTION 07/14/2010 MADL PHILOSOPHY SPECIALIST, JHONATAN L 625.6 STRESS INCONTINENCE FEMALE 07/14/2010 MADL PHILOSOPHY SPECIALIST, JHONATAN L 724.2 lower back pain 07/14/2010 CURRIE DO, AMELIA K 461.9 SINUSITIS ACUTE 07/14/2010 CURRIE DO, AMELIA K 599.0 URINARY TRACT INFECTION 07/14/2010 CURRIE DO, AMELIA K 625.6 STRESS INCONTINENCE FEMALE 07/14/2010 CURRIE DO, AMELIA K 724.2 lower back pain 07/14/2010 MADL PHILOSOPHY SPECIALIST, JHONATAN L 461.9 SINUSITIS ACUTE 07/14/2010 MADL PHILOSOPHY SPECIALIST, JHONATAN L 599.0 URINARY TRACT INFECTION 07/14/2010 MADL PHILOSOPHY SPECIALIST, JHONATAN L 625.6 STRESS INCONTINENCE FEMALE 07/14/2010 MADL PHILOSOPHY SPECIALIST, JHONATAN L 724.2 lower back pain 07/14/2010 MADL PHILOSOPHY SPECIALIST, JHONATAN L 461.9 SINUSITIS ACUTE 07/14/2010 MADL PHILOSOPHY SPECIALIST, JHONATAN L 599.0 URINARY TRACT INFECTION 07/14/2010 MADL PHILOSOPHY SPECIALIST, JHONATAN L 625.6 STRESS INCONTINENCE FEMALE 07/14/2010 MADL PHILOSOPHY SPECIALIST, JHONATAN L 724.2 lower back pain 07/14/2010 MADL PHILOSOPHY SPECIALIST, JHONATAN L 461.9 SINUSITIS ACUTE 07/14/2010 MADL PHILOSOPHY SPECIALIST, JHONATAN L 599.0 URINARY TRACT INFECTION 07/14/2010 MADL PHILOSOPHY SPECIALIST, JHONATAN L 625.6 STRESS INCONTINENCE FEMALE 07/14/2010 MADL PHILOSOPHY SPECIALIST, JHONATAN L 724.2 lower back pain 07/14/2010 CURRIE DO, AMELIA K 461.9 SINUSITIS ACUTE 07/14/2010 CURRIE DO, AMELIA K 599.0 URINARY TRACT INFECTION 07/14/2010 CURRIE DO, AMELIA K 625.6 STRESS INCONTINENCE FEMALE 07/14/2010 CURRIE DO, AMELIA K 724.2 lower back pain 07/14/2010 MADL PHILOSOPHY SPECIALIST, JHONATAN L 461.9 SINUSITIS ACUTE 07/14/2010 MADL PHILOSOPHY SPECIALIST, JHONATAN L 599.0 URINARY TRACT INFECTION 07/14/2010 MADL PHILOSOPHY SPECIALIST, JHONATAN L 625.6 STRESS INCONTINENCE FEMALE 07/14/2010 MADL PHILOSOPHY SPECIALIST, JHONATAN L 724.2 lower back pain 07/14/2010 MADL PHILOSOPHY SPECIALIST, JHONATAN L 461.9 SINUSITIS ACUTE 07/14/2010 MADL PHILOSOPHY SPECIALIST, JHONATAN L 599.0 URINARY TRACT INFECTION 07/14/2010 MADL PHILOSOPHY SPECIALIST, JHONATAN L 625.6 STRESS INCONTINENCE FEMALE 07/14/2010 MADL PHILOSOPHY SPECIALIST, JHONATAN L 724.2 lower back pain 07/14/2010 MAVERICK PHILOSOPHY SPECIALIST, ZACHARIAH R 461.9 SINUSITIS ACUTE 07/14/2010 MAVERICK PHILOSOPHY SPECIALIST, ZACHARIAH R 599.0 URINARY TRACT INFECTION 07/14/2010 MAVERICK PHILOSOPHY SPECIALIST, ZACHARIAH R 625.6 STRESS INCONTINENCE FEMALE 07/14/2010 MAVERICK PHILOSOPHY SPECIALIST, ZACHARIAH R 724.2 lower back pain 07/14/2010 MADL PHILOSOPHY SPECIALIST, JHONATAN L 461.9 SINUSITIS ACUTE 07/14/2010 MADL PHILOSOPHY SPECIALIST, JHONATAN L 599.0 URINARY TRACT INFECTION 07/14/2010 MADL PHILOSOPHY SPECIALIST, JHONATAN L 625.6 STRESS INCONTINENCE FEMALE 07/14/2010 MADL PHILOSOPHY SPECIALIST, JHONATAN L 724.2 lower back pain 07/14/2010 MADL PHILOSOPHY SPECIALIST, JHONATAN L 461.9 SINUSITIS ACUTE 07/14/2010 MADL PHILOSOPHY SPECIALIST, JHONATAN L 599.0 URINARY TRACT INFECTION 07/14/2010 MADL PHILOSOPHY SPECIALIST, JHONATAN L 625.6 STRESS INCONTINENCE FEMALE 07/14/2010 MADL PHILOSOPHY SPECIALIST, JHONATAN L 724.2 lower back pain 07/14/2010 MADL PHILOSOPHY SPECIALIST, JHONATAN L 461.9 SINUSITIS ACUTE 07/14/2010 MADL PHILOSOPHY SPECIALIST, JHONATAN L 599.0 URINARY TRACT INFECTION 07/14/2010 MADL PHILOSOPHY SPECIALIST, JHONATAN L 625.6 STRESS INCONTINENCE FEMALE 07/14/2010 MADL PHILOSOPHY SPECIALIST, JHONATAN L 724.2 lower back pain 07/14/2010 MADL PHILOSOPHY SPECIALIST, JHONATAN L 461.9 SINUSITIS ACUTE 07/14/2010 MADL PHILOSOPHY SPECIALIST, JHONATAN L 599.0 URINARY TRACT INFECTION 07/14/2010 MADL PHILOSOPHY SPECIALIST, JHONATAN L 625.6 STRESS INCONTINENCE FEMALE 07/14/2010 MADL PHILOSOPHY SPECIALIST, JHONATAN L 724.2 lower back pain 07/14/2010 MADL PHILOSOPHY SPECIALIST, JHONATAN L 461.9 SINUSITIS ACUTE 07/14/2010 MADL PHILOSOPHY SPECIALIST, JHONATAN L 599.0 URINARY TRACT INFECTION 07/14/2010 MADL PHILOSOPHY SPECIALIST, JHONATAN L 625.6 STRESS INCONTINENCE FEMALE 07/14/2010 MADL PHILOSOPHY SPECIALIST, JHONATAN L 724.2 lower back pain 07/14/2010 MADL PHILOSOPHY SPECIALIST, JHONATAN L 461.9 SINUSITIS ACUTE 07/14/2010 MADL PHILOSOPHY SPECIALIST, JHONATAN L 599.0 URINARY TRACT INFECTION 07/14/2010 MADL PHILOSOPHY SPECIALIST, JHONATAN L 625.6 STRESS INCONTINENCE FEMALE 07/14/2010 MADL PHILOSOPHY SPECIALIST, JHONATAN L 724.2 lower back pain 07/14/2010 CURRIE DO, AMELIA K 461.9 SINUSITIS ACUTE 07/14/2010 CURRIE DO, AMELIA K 599.0 URINARY TRACT INFECTION 07/14/2010 CURRIE DO, AMELIA K 625.6 STRESS INCONTINENCE FEMALE 07/14/2010 CURRIE DO, AMELIA K 724.2 lower back pain 07/14/2010 MADL PHILOSOPHY SPECIALIST, JHONATAN L 461.9 SINUSITIS ACUTE 07/14/2010 MADL PHILOSOPHY SPECIALIST, JHONATAN L 599.0 URINARY TRACT INFECTION 07/14/2010 MADL PHILOSOPHY SPECIALIST, JHONATAN L 625.6 STRESS INCONTINENCE FEMALE 07/14/2010 MADL PHILOSOPHY SPECIALIST, JHONATAN L 724.2 lower back pain 07/14/2010 BLANCHE PHILOSOPHY SPECIALIST, BHARAT S 461.9 SINUSITIS ACUTE 07/14/2010 BLANCHE PHILOSOPHY SPECIALIST, BHARAT S 599.0 URINARY TRACT INFECTION 07/14/2010 BLANCHE PHILOSOPHY SPECIALIST, BHARAT S 625.6 STRESS INCONTINENCE FEMALE 07/14/2010 BLANCHE PHILOSOPHY SPECIALIST, BHARAT S 724.2 lower back pain 07/14/2010 461.9 SINUSITIS ACUTE 07/14/2010 599.0 URINARY TRACT INFECTION 07/14/2010 625.6 STRESS INCONTINENCE FEMALE 07/14/2010 724.2 lower back pain 07/14/2010 MAVERICK PHILOSOPHY SPECIALIST, ZACHARIAH R 461.9 SINUSITIS ACUTE 07/14/2010 MAVERICK PHILOSOPHY SPECIALIST, ZACHARIAH R 599.0 URINARY TRACT INFECTION 07/14/2010 MAVERICK PHILOSOPHY SPECIALIST, ZACHARIAH R 625.6 STRESS INCONTINENCE FEMALE 07/14/2010 MAVERICK PHILOSOPHY SPECIALIST, ZACHARIAH R 724.2 lower back pain 07/14/2010 [...] 272.4 OTHER AND UNSPECIFIED HYPERLIPIDEMIA 07/23/2010 CHARITY PHILOSOPHY SPECIALIST, MARCI A 272.4 OTHER AND UNSPECIFIED HYPERLIPIDEMIA 07/23/2010 MADL PHILOSOPHY SPECIALIST, JHONATAN L 272.4 OTHER AND UNSPECIFIED HYPERLIPIDEMIA 07/23/2010 272.4 OTHER AND UNSPECIFIED HYPERLIPIDEMIA 07/23/2010 CURRIE DO, AMELIA K 272.4 OTHER AND UNSPECIFIED HYPERLIPIDEMIA 07/23/2010 CURRIE DO, AMELIA K 272.4 OTHER AND UNSPECIFIED HYPERLIPIDEMIA 07/23/2010 MADL PHILOSOPHY SPECIALIST, JHONATAN L 272.4 OTHER AND UNSPECIFIED HYPERLIPIDEMIA 07/23/2010 MADL PHILOSOPHY SPECIALIST, JHONATAN L 272.4 OTHER AND UNSPECIFIED HYPERLIPIDEMIA 07/23/2010 MADL PHILOSOPHY SPECIALIST, JHONATAN L 272.4 OTHER AND UNSPECIFIED HYPERLIPIDEMIA 07/23/2010 CURRIE DO, AMELIA K 272.4 OTHER AND UNSPECIFIED HYPERLIPIDEMIA 07/23/2010 MADL PHILOSOPHY SPECIALIST, JHONATAN L 272.4 OTHER AND UNSPECIFIED HYPERLIPIDEMIA 07/23/2010 MADL PHILOSOPHY SPECIALIST, JHONATAN L 272.4 OTHER AND UNSPECIFIED HYPERLIPIDEMIA 07/23/2010 MADL PHILOSOPHY SPECIALIST, JHONATAN L 272.4 OTHER AND UNSPECIFIED HYPERLIPIDEMIA 07/23/2010 CURRIE DO, AMELIA K 272.4 OTHER AND UNSPECIFIED HYPERLIPIDEMIA 07/23/2010 MADL PHILOSOPHY SPECIALIST, JHONATAN L 272.4 OTHER AND UNSPECIFIED HYPERLIPIDEMIA 07/23/2010 MADL PHILOSOPHY SPECIALIST, JHONATAN L 272.4 OTHER AND UNSPECIFIED HYPERLIPIDEMIA 07/23/2010 MAVERICK PHILOSOPHY SPECIALIST, ZACHARIAH R 272.4 OTHER AND UNSPECIFIED HYPERLIPIDEMIA 07/23/2010 MADL PHILOSOPHY SPECIALIST, JHONATAN L 272.4 OTHER AND UNSPECIFIED HYPERLIPIDEMIA 07/23/2010 MADL PHILOSOPHY SPECIALIST, JHONATAN L 272.4 OTHER AND UNSPECIFIED HYPERLIPIDEMIA 07/23/2010 MADL PHILOSOPHY SPECIALIST, JHONATAN L 272.4 OTHER AND UNSPECIFIED HYPERLIPIDEMIA 07/23/2010 MADL PHILOSOPHY SPECIALIST, JHONATAN L 272.4 OTHER AND UNSPECIFIED HYPERLIPIDEMIA 07/23/2010 MADL PHILOSOPHY SPECIALIST, JHONATAN L 272.4 OTHER AND UNSPECIFIED HYPERLIPIDEMIA 07/23/2010 MADL PHILOSOPHY SPECIALIST, JHONATAN L 272.4 OTHER AND UNSPECIFIED HYPERLIPIDEMIA 07/23/2010 CURRIE DO, AMELIA K 272.4 OTHER AND UNSPECIFIED HYPERLIPIDEMIA 07/23/2010 MADL PHILOSOPHY SPECIALIST, JHONATAN L 272.4 OTHER AND UNSPECIFIED HYPERLIPIDEMIA 07/23/2010 BLANCHE PHILOSOPHY SPECIALIST, BHARAT S 272.4 OTHER AND UNSPECIFIED HYPERLIPIDEMIA 07/23/2010 272.4 OTHER AND UNSPECIFIED HYPERLIPIDEMIA 07/23/2010 MAVERICK PHILOSOPHY SPECIALIST, ZACHARIAH R 272.4 OTHER AND UNSPECIFIED HYPERLIPIDEMIA [...] K 847.0 SPRAIN OF NECK 09/25/2010 CHARITY PHILOSOPHY SPECIALIST, MARCI A 465.9 UPPER RESPIRATORY INFECTION 09/25/2010 CHARITY PHILOSOPHY SPECIALIST, MARCI A 847.0 SPRAIN OF NECK 09/25/2010 MADL PHILOSOPHY SPECIALIST, JHONATAN L 465.9 UPPER RESPIRATORY INFECTION 09/25/2010 MADL PHILOSOPHY SPECIALIST, JHONATAN L 847.0 SPRAIN OF NECK 09/25/2010 465.9 UPPER RESPIRATORY INFECTION 09/25/2010 847.0 SPRAIN OF NECK 09/25/2010 CURRIE DO, AMELIA K 465.9 UPPER RESPIRATORY INFECTION 09/25/2010 CURRIE DO, AMELIA K 847.0 SPRAIN OF NECK 09/25/2010 CURRIE DO, AMELIA K 465.9 UPPER RESPIRATORY INFECTION 09/25/2010 CURRIE DO, AMELIA K 847.0 SPRAIN OF NECK 09/25/2010 MADL PHILOSOPHY SPECIALIST, JHONATAN L 465.9 UPPER RESPIRATORY INFECTION 09/25/2010 MADL PHILOSOPHY SPECIALIST, JHONATAN L 847.0 SPRAIN OF NECK 09/25/2010 MADL PHILOSOPHY SPECIALIST, JHONATAN L 465.9 UPPER RESPIRATORY INFECTION 09/25/2010 MADL PHILOSOPHY SPECIALIST, JHONATAN L 847.0 SPRAIN OF NECK 09/25/2010 MADL PHILOSOPHY SPECIALIST, JHONATAN L 465.9 UPPER RESPIRATORY INFECTION 09/25/2010 MADL PHILOSOPHY SPECIALIST, JHONATAN L 847.0 SPRAIN OF NECK 09/25/2010 CURRIE DO, AMELIA K 465.9 UPPER RESPIRATORY INFECTION 09/25/2010 CURRIE DO, AMELIA K 847.0 SPRAIN OF NECK 09/25/2010 MADL PHILOSOPHY SPECIALIST, JHONATAN L 465.9 UPPER RESPIRATORY INFECTION 09/25/2010 MADL PHILOSOPHY SPECIALIST, JHONATAN L 847.0 SPRAIN OF NECK 09/25/2010 MADL PHILOSOPHY SPECIALIST, JHONATAN L 465.9 UPPER RESPIRATORY INFECTION 09/25/2010 MADL PHILOSOPHY SPECIALIST, JHONATAN L 847.0 SPRAIN OF NECK 09/25/2010 MADL PHILOSOPHY SPECIALIST, JHONATAN L 465.9 UPPER RESPIRATORY INFECTION 09/25/2010 MADL PHILOSOPHY SPECIALIST, JHONATAN L 847.0 SPRAIN OF NECK 09/25/2010 CURRIE DO, AMELIA K 465.9 UPPER RESPIRATORY INFECTION 09/25/2010 CURRIE DO, AMELIA K 847.0 SPRAIN OF NECK 09/25/2010 MADL PHILOSOPHY SPECIALIST, JHONATAN L 465.9 UPPER RESPIRATORY INFECTION 09/25/2010 MADL PHILOSOPHY SPECIALIST, JHONATAN L 847.0 SPRAIN OF NECK 09/25/2010 MADL PHILOSOPHY SPECIALIST, JHONATAN L 465.9 UPPER RESPIRATORY INFECTION 09/25/2010 MADL PHILOSOPHY SPECIALIST, JHONATAN L 847.0 SPRAIN OF NECK 09/25/2010 MAVERICK PHILOSOPHY SPECIALIST, ZACHARIAH R 465.9 UPPER RESPIRATORY INFECTION 09/25/2010 MAVERICK PHILOSOPHY SPECIALIST, ZACHARIAH R 847.0 SPRAIN OF NECK 09/25/2010 MADL PHILOSOPHY SPECIALIST, JHONATAN L 465.9 UPPER RESPIRATORY INFECTION 09/25/2010 MADL PHILOSOPHY SPECIALIST, JHONATAN L 847.0 SPRAIN OF NECK 09/25/2010 MADL PHILOSOPHY SPECIALIST, JHONATAN L 465.9 UPPER RESPIRATORY INFECTION 09/25/2010 MADL PHILOSOPHY SPECIALIST, JHONATAN L 847.0 SPRAIN OF NECK 09/25/2010 MADL PHILOSOPHY SPECIALIST, JHONATAN L 465.9 UPPER RESPIRATORY INFECTION 09/25/2010 MADL PHILOSOPHY SPECIALIST, JHONATAN L 847.0 SPRAIN OF NECK 09/25/2010 MADL PHILOSOPHY SPECIALIST, JHONATAN L 465.9 UPPER RESPIRATORY INFECTION 09/25/2010 MADL PHILOSOPHY SPECIALIST, JHONATAN L 847.0 SPRAIN OF NECK 09/25/2010 MADL PHILOSOPHY SPECIALIST, JHONATAN L 465.9 UPPER RESPIRATORY INFECTION 09/25/2010 MADL PHILOSOPHY SPECIALIST, JHONATAN L 847.0 SPRAIN OF NECK 09/25/2010 MADL PHILOSOPHY SPECIALIST, JHONATAN L 465.9 UPPER RESPIRATORY INFECTION 09/25/2010 MADL PHILOSOPHY SPECIALIST, JHONATAN L 847.0 SPRAIN OF NECK 09/25/2010 CURRIE DO, AMELIA K 465.9 UPPER RESPIRATORY INFECTION 09/25/2010 CURRIE DO, AMELIA K 847.0 SPRAIN OF NECK 09/25/2010 MADL PHILOSOPHY SPECIALIST, JHONATAN L 465.9 UPPER RESPIRATORY INFECTION 09/25/2010 MADL PHILOSOPHY SPECIALIST, JHONATAN L 847.0 SPRAIN OF NECK 09/25/2010 BLANCHE PHILOSOPHY SPECIALIST, BHARAT S 465.9 UPPER RESPIRATORY INFECTION 09/25/2010 BLANCHE PHILOSOPHY SPECIALIST, BHARAT S 847.0 SPRAIN OF NECK 09/25/2010 465.9 UPPER RESPIRATORY INFECTION 09/25/2010 847.0 SPRAIN OF NECK 09/25/2010 MAVERICK PHILOSOPHY SPECIALIST, ZACHARIAH R 465.9 UPPER RESPIRATORY INFECTION 09/25/2010 MAVERICK PHILOSOPHY SPECIALIST, ZACHARIAH R 847.0 SPRAIN OF NECK 09/25/2010 [...] MASS OR LUMP IN CHEST 11/04/2010 CHARITY PHILOSOPHY SPECIALIST, MARCI A 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 11/04/2010 CHARITY PHILOSOPHY SPECIALIST, MARCI A 473.9 UNSPECIFIED SINUSITIS (CHRONIC) 11/04/2010 CHARITY PHILOSOPHY SPECIALIST, MARCI A 786.6 SWELLING MASS OR LUMP IN CHEST 11/04/2010 MADL PHILOSOPHY SPECIALIST, JHONATAN L 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 11/04/2010 MADL PHILOSOPHY SPECIALIST, JHONATAN L 473.9 UNSPECIFIED SINUSITIS (CHRONIC) 11/04/2010 MADL PHILOSOPHY SPECIALIST, JHONATAN L 786.6 SWELLING MASS OR LUMP [...] MASS OR LUMP IN CHEST 11/04/2010 MADL PHILOSOPHY SPECIALIST, JHONATAN L 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 11/04/2010 MADL PHILOSOPHY SPECIALIST, JOHNATAN L 473.9 UNSPECIFIED SINUSITIS (CHRONIC) 11/04/2010 MADL PHILOSOPHY SPECIALIST, JHONATAN L 786.6 SWELLING MASS OR LUMP IN CHEST 11/04/2010 MADL PHILOSOPHY SPECIALIST, JHONATAN L 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 11/04/2010 MADL PHILOSOPHY SPECIALIST, JHONATAN L 473.9 UNSPECIFIED SINUSITIS (CHRONIC) 11/04/2010 MADL PHILOSOPHY SPECIALIST, JHONATAN L 786.6 SWELLING MASS OR LUMP IN CHEST 11/04/2010 MADL PHILOSOPHY SPECIALIST, JHONATAN L 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 11/04/2010 MADL PHILOSOPHY SPECIALIST, JHONATAN L 473.9 UNSPECIFIED SINUSITIS (CHRONIC) 11/04/2010 MADL PHILOSOPHY SPECIALIST, JHONATAN L 786.6 SWELLING MASS OR LUMP IN CHEST 11/04/2010 CURRIE DO AMELIA K 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 11/04/2010 CURRIE DO AMELIA K 473.9 UNSPECIFIED SINUSITIS (CHRONIC) 11/04/2010 CURRIE DO, AMELIA K 786.6 SWELLING MASS OR LUMP IN CHEST 11/04/2010 MADL PHILOSOPHY SPECIALIST, JHONATAN L 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 11/04/2010 MADL PHILOSOPHY SPECIALIST, JHONATAN L 473.9 UNSPECIFIED SINUSITIS (CHRONIC) 11/04/2010 MADL PHILOSOPHY SPECIALIST, JHONATAN L 786.6 SWELLING MASS OR LUMP IN CHEST 11/04/2010 MADL PHILOSOPHY SPECIALIST, JHONATAN L 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 11/04/2010 MADL PHILOSOPHY SPECIALIST, JHONATAN L 473.9 UNSPECIFIED SINUSITIS (CHRONIC) 11/04/2010 MADL PHILOSOPHY SPECIALIST, JHONATAN L 786.6 SWELLING MASS OR LUMP IN CHEST 11/04/2010 MADL PHILOSOPHY SPECIALIST, JHONATAN L 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 11/04/2010 MADL PHILOSOPHY SPECIALIST, JHONATAN L 473.9 UNSPECIFIED SINUSITIS (CHRONIC) 11/04/2010 MADL PHILOSOPHY SPECIALIST, JHONATAN L 786.6 SWELLING MASS OR LUMP IN CHEST 11/04/2010 CURRIE DO AMELIA K 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 11/04/2010 CURRIE DO, AMELIA K 473.9 UNSPECIFIED SINUSITIS (CHRONIC) 11/04/2010 CURRIE DO, AMELIA K 786.6 SWELLING MASS OR LUMP IN CHEST 11/04/2010 MADL PHILOSOPHY SPECIALIST, JHONATAN L 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 11/04/2010 MADL PHILOSOPHY SPECIALIST, JHONATAN L 473.9 UNSPECIFIED SINUSITIS (CHRONIC) 11/04/2010 MADL PHILOSOPHY SPECIALIST, JHONATAN L 786.6 SWELLING MASS OR LUMP IN CHEST 11/04/2010 MADL PHILOSOPHY SPECIALIST, JHONATAN L 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 11/04/2010 MADL PHILOSOPHY SPECIALIST, JHONATAN L 473.9 UNSPECIFIED SINUSITIS (CHRONIC) 11/04/2010 MADL PHILOSOPHY SPECIALIST, JHONATAN L 786.6 SWELLING MASS OR LUMP IN CHEST 11/04/2010 MAVERICK PHILOSOPHY SPECIALIST, ZACHARIAH R 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 11/04/2010 MAVERICK PHILOSOPHY SPECIALIST, ZACHARIAH R 473.9 UNSPECIFIED SINUSITIS (CHRONIC) 11/04/2010 MAVERICK PHILOSOPHY SPECIALIST, ZACHARIAH R 786.6 SWELLING MASS OR LUMP IN CHEST 11/04/2010 MADL PHILOSOPHY SPECIALIST, JHONATAN L 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 11/04/2010 MADL PHILOSOPHY SPECIALIST, JHONATAN L 473.9 UNSPECIFIED SINUSITIS (CHRONIC) 11/04/2010 MADL PHILOSOPHY SPECIALIST, JHONATAN L 786.6 SWELLING MASS OR LUMP IN CHEST 11/04/2010 MADL PHILOSOPHY SPECIALIST, JHONATAN L 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 11/04/2010 MADL PHILOSOPHY SPECIALIST, JHONATAN L 473.9 UNSPECIFIED SINUSITIS (CHRONIC) 11/04/2010 MADL PHILOSOPHY SPECIALIST, JHONATAN L 786.6 SWELLING MASS OR LUMP IN CHEST 11/04/2010 MADL PHILOSOPHY SPECIALIST, JHONATAN L 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 11/04/2010 MADL PHILOSOPHY SPECIALIST, JHONATAN L 473.9 UNSPECIFIED SINUSITIS (CHRONIC) 11/04/2010 MADL PHILOSOPHY SPECIALIST, JHONATAN L 786.6 SWELLING MASS OR LUMP IN CHEST 11/04/2010 MADL PHILOSOPHY SPECIALIST, JHONATAN L 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 11/04/2010 MADL PHILOSOPHY SPECIALIST, JHONATAN L 473.9 UNSPECIFIED SINUSITIS (CHRONIC) 11/04/2010 MADL PHILOSOPHY SPECIALIST, JHONATAN L 786.6 SWELLING MASS OR LUMP IN CHEST 11/04/2010 MADL PHILOSOPHY SPECIALIST, JHONATAN L 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 11/04/2010 MADL PHILOSOPHY SPECIALIST, JHONATAN L 473.9 UNSPECIFIED SINUSITIS (CHRONIC) 11/04/2010 MADL PHILOSOPHY SPECIALIST, JHONATAN L 786.6 SWELLING MASS OR LUMP IN CHEST 11/04/2010 MADL PHILOSOPHY SPECIALIST, JHONATAN L 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 11/04/2010 MADL PHILOSOPHY SPECIALIST, JHONATAN L 473.9 UNSPECIFIED SINUSITIS (CHRONIC) 11/04/2010 MADL PHILOSOPHY SPECIALIST, JHONATAN L 786.6 SWELLING MASS OR LUMP IN CHEST 11/04/2010 CURRIE DO, AMELIA K 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 11/04/2010 CURRIE DO, AMELIA K 473.9 UNSPECIFIED SINUSITIS (CHRONIC) 11/04/2010 CURRIE DO, AMELIA K 786.6 SWELLING MASS OR LUMP IN CHEST 11/04/2010 MADL PHILOSOPHY SPECIALIST, JHONATAN L 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 11/04/2010 MADL PHILOSOPHY SPECIALIST, JHONATAN L 473.9 UNSPECIFIED SINUSITIS (CHRONIC) 11/04/2010 MADL PHILOSOPHY SPECIALIST, JHONATAN L 786.6 SWELLING MASS OR LUMP IN CHEST 11/04/2010 BLANCHE PHILOSOPHY SPECIALIST, BHARAT S 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 11/04/2010 BLANCHE PHILOSOPHY SPECIALIST, BHARAT S 473.9 UNSPECIFIED SINUSITIS (CHRONIC) 11/04/2010 BLANCHE PHILOSOPHY SPECIALIST, BHARAT S 786.6 SWELLING MASS OR LUMP IN CHEST 11/04/2010 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 11/04/2010 473.9 UNSPECIFIED SINUSITIS (CHRONIC) 11/04/2010 786.6 SWELLING MASS OR LUMP IN CHEST 11/04/2010 MAVERICK PHILOSOPHY SPECIALIST, ZACHARIAH R 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 11/04/2010 MAVERICK PHILOSOPHY SPECIALIST, ZACHARIAH R 473.9 UNSPECIFIED SINUSITIS (CHRONIC) 11/04/2010 [...] 278.01 OBESITY MORBID BMI >40 12/22/2010 CHARITY PHILOSOPHY SPECIALIST, MARCI A 278.01 OBESITY MORBID BMI >40 12/22/2010 MADL PHILOSOPHY SPECIALIST, JHONATAN L 278.01 OBESITY MORBID BMI >40 12/22/2010 278.01 OBESITY MORBID BMI >40 12/22/2010 CURRIE DO, AMELIA K 278.01 OBESITY MORBID BMI >40 12/22/2010 CURRIE DO, AMELIA K 278.01 OBESITY MORBID BMI >40 12/22/2010 MADL PHILOSOPHY SPECIALIST, JHONATAN L 278.01 OBESITY MORBID BMI >40 12/22/2010 MADL PHILOSOPHY SPECIALIST, JHONATAN L 278.01 OBESITY MORBID BMI >40 12/22/2010 MAD PHILOSOPHY SPECIALIST, JHONATAN L 278.01 OBESITY MORBID BMI >40 12/22/2010 CURRIE DO, AMELIA K 278.01 OBESITY MORBID BMI >40 12/22/2010 MAD PHILOSOPHY SPECIALIST, JHONATAN L 278.01 OBESITY MORBID BMI >40 12/22/2010 MAD PHILOSOPHY SPECIALIST, JHONATAN L 278.01 OBESITY MORBID BMI >40 12/22/2010 MAD PHILOSOPHY SPECIALIST, JHONATAN L 278.01 OBESITY MORBID BMI >40 12/22/2010 CURRIE DO, AMELIA K 278.01 OBESITY MORBID BMI >40 12/22/2010 MAD PHILOSOPHY SPECIALIST, JHONATAN L 278.01 OBESITY MORBID BMI >40 12/22/2010 MAD PHILOSOPHY SPECIALIST, JHONATAN L 278.01 OBESITY MORBID BMI >40 12/22/2010 JOSSELINE TEMPLE APRNINA R 278.01 OBESITY MORBID BMI >40 12/22/2010 MAD PHILOSOPHY SPECIALIST, JHONATAN L 278.01 OBESITY MORBID BMI >40 12/22/2010 MAD PHILOSOPHY SPECIALIST, JHONATAN L 278.01 OBESITY MORBID BMI >40 12/22/2010 MAD PHILOSOPHY SPECIALIST, JHONATAN L 278.01 OBESITY MORBID BMI >40 12/22/2010 MAD PHILOSOPHY SPECIALIST, JHONATAN L 278.01 OBESITY MORBID BMI >40 12/22/2010 MAD PHILOSOPHY SPECIALIST, JHONATAN L 278.01 OBESITY MORBID BMI >40 12/22/2010 MAD PHILOSOPHY SPECIALIST, JHONATAN L 278.01 OBESITY MORBID BMI >40 [...] AMELIA K 525.9 TOOTH PAIN 03/24/2011 MADL PHILOSOPHY SPECIALIST, JHONATAN L 525.9 TOOTH PAIN 03/24/2011 MADL PHILOSOPHY SPECIALIST, JHONATAN L 525.9 TOOTH PAIN 03/24/2011 MADL PHILOSOPHY SPECIALIST, JHONATAN L 525.9 TOOTH PAIN 03/24/2011 CURRIE DO, AMELIA K 525.9 TOOTH PAIN 03/24/2011 MADL PHILOSOPHY SPECIALIST, JHONATAN L 525.9 TOOTH PAIN 03/24/2011 MADL PHILOSOPHY SPECIALIST, JHONATAN L 525.9 TOOTH PAIN 03/24/2011 MADL PHILOSOPHY SPECIALIST, JHONATAN L 525.9 TOOTH PAIN 03/24/2011 CURRIE DO, AMELIA K 525.9 TOOTH PAIN 03/24/2011 MADL PHILOSOPHY SPECIALIST, JHONATAN L 525.9 TOOTH PAIN 03/24/2011 MADL PHILOSOPHY SPECIALIST, JHONATAN L 525.9 TOOTH PAIN 03/24/2011 MAVERICK PHILOSOPHY SPECIALIST, ZACHARIAH R 525.9 TOOTH PAIN 03/24/2011 MADL PHILOSOPHY SPECIALIST, JHONATAN L 525.9 TOOTH PAIN 03/24/2011 MADL PHILOSOPHY SPECIALIST, JHONATAN L 525.9 TOOTH PAIN 03/24/2011 MADL PHILOSOPHY SPECIALIST, JHONATAN L 525.9 TOOTH PAIN 03/24/2011 MADL PHILOSOPHY SPECIALIST, JHONATAN L 525.9 TOOTH PAIN 03/24/2011 MADL PHILOSOPHY SPECIALIST, JHONATAN L 525.9 TOOTH PAIN 03/24/2011 MADL PHILOSOPHY SPECIALIST, JHONATAN L 525.9 TOOTH PAIN 03/24/2011 CURRIE DO, AMELIA K 525.9 TOOTH PAIN 03/24/2011 MADL PHILOSOPHY SPECIALIST, JHONATAN L 525.9 TOOTH PAIN 03/24/2011 BLANCHE PHILOSOPHY SPECIALIST, BHARAT S 525.9 TOOTH PAIN 03/24/2011 525.9 TOOTH PAIN 03/24/2011 MAVERICK PHILOSOPHY SPECIALIST, ZACHARIAH R 525.9 TOOTH PAIN 03/24/2011 SUZY [...] K 414.00 ASYMPTOMATIC CORONARY ARTERIOSCLEROSIS 07/12/2012 CHARITY PHILOSOPHY SPECIALIST, MARCI A 401.1 ESSENTIAL HYPERTENSION BENIGN 07/12/2012 CHARITY PHILOSOPHY SPECIALIST, MARCI A 414.00 ASYMPTOMATIC CORONARY ARTERIOSCLEROSIS 07/12/2012 MADL PHILOSOPHY SPECIALIST, JHONATAN L 401.1 ESSENTIAL HYPERTENSION BENIGN 07/12/2012 MADL PHILOSOPHY SPECIALIST, JHONATAN L 414.00 ASYMPTOMATIC CORONARY ARTERIOSCLEROSIS 07/12/2012 401.1 ESSENTIAL HYPERTENSION BENIGN 07/12/2012 414.00 ASYMPTOMATIC CORONARY ARTERIOSCLEROSIS 07/12/2012 CURRIE DO, AMELIA K 401.1 ESSENTIAL HYPERTENSION BENIGN 07/12/2012 CURRIE DO, AMELIA K 414.00 ASYMPTOMATIC CORONARY ARTERIOSCLEROSIS 07/12/2012 CURRIE DO, AMELIA K 401.1 ESSENTIAL HYPERTENSION BENIGN 07/12/2012 CURRIE DO, AMELIA K 414.00 ASYMPTOMATIC CORONARY ARTERIOSCLEROSIS 07/12/2012 MADL PHILOSOPHY SPECIALIST, JHONATAN L 401.1 ESSENTIAL HYPERTENSION BENIGN 07/12/2012 MADL PHILOSOPHY SPECIALIST, JHONATAN L 414.00 ASYMPTOMATIC CORONARY ARTERIOSCLEROSIS 07/12/2012 MADL PHILOSOPHY SPECIALIST, JHONATAN L 401.1 ESSENTIAL HYPERTENSION BENIGN 07/12/2012 MADL PHILOSOPHY SPECIALIST, JHONATAN L 414.00 ASYMPTOMATIC CORONARY ARTERIOSCLEROSIS 07/12/2012 MADL PHILOSOPHY SPECIALIST, JHONATAN L 401.1 ESSENTIAL HYPERTENSION BENIGN 07/12/2012 MADL PHILOSOPHY SPECIALIST, JHONATAN L 414.00 ASYMPTOMATIC CORONARY ARTERIOSCLEROSIS 07/12/2012 CURRIE DO, AMELIA K 401.1 ESSENTIAL HYPERTENSION BENIGN 07/12/2012 CURRIE DO, AMELIA K 414.00 ASYMPTOMATIC CORONARY ARTERIOSCLEROSIS 07/12/2012 MADL PHILOSOPHY SPECIALIST, JHONATAN L 401.1 ESSENTIAL HYPERTENSION BENIGN 07/12/2012 MADL PHILOSOPHY SPECIALIST, JHONATAN L 414.00 ASYMPTOMATIC CORONARY ARTERIOSCLEROSIS 07/12/2012 MADL PHILOSOPHY SPECIALIST, JHONATAN L 401.1 ESSENTIAL HYPERTENSION BENIGN 07/12/2012 MADL PHILOSOPHY SPECIALIST, JHONATAN L 414.00 ASYMPTOMATIC CORONARY ARTERIOSCLEROSIS 07/12/2012 MADL PHILOSOPHY SPECIALIST, JHONATAN L 401.1 ESSENTIAL HYPERTENSION BENIGN 07/12/2012 MADL PHILOSOPHY SPECIALIST, JHONATAN L 414.00 ASYMPTOMATIC CORONARY ARTERIOSCLEROSIS 07/12/2012 CURRIE DO, AMELIA K 401.1 ESSENTIAL HYPERTENSION BENIGN 07/12/2012 CURRIE DO, AMELIA K 414.00 ASYMPTOMATIC CORONARY ARTERIOSCLEROSIS 07/12/2012 MADL PHILOSOPHY SPECIALIST, JHONATAN L 401.1 ESSENTIAL HYPERTENSION BENIGN 07/12/2012 MADL PHILOSOPHY SPECIALIST, JHONATAN L 414.00 ASYMPTOMATIC CORONARY ARTERIOSCLEROSIS 07/12/2012 MADL PHILOSOPHY SPECIALIST, JHONATAN L 401.1 ESSENTIAL HYPERTENSION BENIGN 07/12/2012 MADL PHILOSOPHY SPECIALIST, JHONATAN L 414.00 ASYMPTOMATIC CORONARY ARTERIOSCLEROSIS 07/12/2012 MAVERICK PHILOSOPHY SPECIALIST, ZACHARIAH R 401.1 ESSENTIAL HYPERTENSION BENIGN 07/12/2012 MAVERICK PHILOSOPHY SPECIALIST, ZACHARIAH R 414.00 ASYMPTOMATIC CORONARY ARTERIOSCLEROSIS 07/12/2012 MADL PHILOSOPHY SPECIALIST, JHONATAN L 401.1 ESSENTIAL HYPERTENSION BENIGN 07/12/2012 MADL PHILOSOPHY SPECIALIST, JHONATAN L 414.00 ASYMPTOMATIC CORONARY ARTERIOSCLEROSIS 07/12/2012 MADL PHILOSOPHY SPECIALIST, JHONATAN L 401.1 ESSENTIAL HYPERTENSION BENIGN 07/12/2012 MADL PHILOSOPHY SPECIALIST, JHONATAN L 414.00 ASYMPTOMATIC CORONARY ARTERIOSCLEROSIS 07/12/2012 MADL PHILOSOPHY SPECIALIST, JHONATAN L 401.1 ESSENTIAL HYPERTENSION BENIGN 07/12/2012 MADL PHILOSOPHY SPECIALIST, JHONATAN L 414.00 ASYMPTOMATIC CORONARY ARTERIOSCLEROSIS 07/12/2012 MADL PHILOSOPHY SPECIALIST, JHONATAN L 401.1 ESSENTIAL HYPERTENSION BENIGN 07/12/2012 MADL PHILOSOPHY SPECIALIST, JHONATAN L 414.00 ASYMPTOMATIC CORONARY ARTERIOSCLEROSIS 07/12/2012 MADL PHILOSOPHY SPECIALIST, JHONATAN L 401.1 ESSENTIAL HYPERTENSION BENIGN 07/12/2012 MADL PHILOSOPHY SPECIALIST, JHONATAN L 414.00 ASYMPTOMATIC CORONARY ARTERIOSCLEROSIS 07/12/2012 MADL PHILOSOPHY SPECIALIST, JHONATAN L 401.1 ESSENTIAL HYPERTENSION BENIGN 07/12/2012 MADL PHILOSOPHY SPECIALIST, JHONATAN L 414.00 ASYMPTOMATIC CORONARY ARTERIOSCLEROSIS 07/12/2012 CURRIE DO, AMELIA K 401.1 ESSENTIAL HYPERTENSION BENIGN 07/12/2012 CURRIE DO, AMELIA K 414.00 ASYMPTOMATIC CORONARY ARTERIOSCLEROSIS 07/12/2012 MADL PHILOSOPHY SPECIALIST, JHONATAN L 401.1 ESSENTIAL HYPERTENSION BENIGN 07/12/2012 MADL PHILOSOPHY SPECIALIST, JHONATAN L 414.00 ASYMPTOMATIC CORONARY ARTERIOSCLEROSIS 07/12/2012 BLANCHE PHILOSOPHY SPECIALIST, BHARAT S 401.1 ESSENTIAL HYPERTENSION BENIGN 07/12/2012 BLANCHE PHILOSOPHY SPECIALIST, BHARAT S 414.00 ASYMPTOMATIC CORONARY ARTERIOSCLEROSIS 07/12/2012 401.1 ESSENTIAL HYPERTENSION BENIGN 07/12/2012 414.00 ASYMPTOMATIC CORONARY ARTERIOSCLEROSIS 07/12/2012 MAVERICK PHILOSOPHY SPECIALIST, ZACHARIAH R 401.1 ESSENTIAL HYPERTENSION BENIGN 07/12/2012 MAVERICK PHILOSOPHY SPECIALIST, ZACHARIAH R 414.00 ASYMPTOMATIC CORONARY ARTERIOSCLEROSIS 07/12/2012 [...] K V73.81 HPV SCREENING 01/16/2013 CURRIE DO, MAELIA K V76.10 BREAST CANCER SCREENING 01/16/2013 CURRIE DO, AMELIA K V76.51 SPECIAL SCREENING FOR MALIGNANT NEOPLASMS COLON 01/16/2013 CHARITY PHILOSOPHY SPECIALIST, MARCI A V65.49 OTHER SPECIFIED COUNSELING 01/16/2013 CHARITY PHILOSOPHY SPECIALIST, MARCI A V73.81 HPV SCREENING 01/16/2013 CHARITY PHILOSOPHY SPECIALIST, MARCI A V76.10 BREAST CANCER SCREENING 01/16/2013 CHARITY PHILOSOPHY SPECIALIST, MARCI A V76.51 SPECIAL SCREENING FOR MALIGNANT NEOPLASMS COLON 01/16/2013 MADL PHILOSOPHY SPECIALISTDAVIDA L V65.49 OTHER SPECIFIED COUNSELING 01/16/2013 MADL PHILOSOPHY SPECIALIST, JHONATAN L V73.81 HPV SCREENING 01/16/2013 MADL PHILOSOPHY SPECIALIST, JHONATAN L V76.10 BREAST CANCER SCREENING 01/16/2013 MADL PHILOSOPHY SPECIALIST, JHONATAN L V76.51 SPECIAL SCREENING FOR MALIGNANT [...] SCREENING FOR MALIGNANT NEOPLASMS COLON 01/16/2013 MADL PHILOSOPHY SPECIALIST, JHONATAN L V65.49 OTHER SPECIFIED COUNSELING 01/16/2013 MADL PHILOSOPHY SPECIALIST, JHONATAN L V73.81 HPV SCREENING 01/16/2013 MADL PHILOSOPHY SPECIALIST, JHONATAN L V76.10 BREAST CANCER SCREENING 01/16/2013 MADL PHILOSOPHY SPECIALIST, JHONATAN L V76.51 SPECIAL SCREENING FOR MALIGNANT NEOPLASMS COLON 01/16/2013 MADL PHILOSOPHY SPECIALIST, JHONATAN L V65.49 OTHER SPECIFIED COUNSELING 01/16/2013 MADL PHILOSOPHY SPECIALIST, JHONATAN L V73.81 HPV SCREENING 01/16/2013 MADL PHILOSOPHY SPECIALIST, JHONATAN L V76.10 BREAST CANCER SCREENING 01/16/2013 MADL PHILOSOPHY SPECIALIST, JHONATAN L V76.51 SPECIAL SCREENING FOR MALIGNANT NEOPLASMS COLON 01/16/2013 MADL PHILOSOPHY SPECIALIST, JHONATAN L V65.49 OTHER SPECIFIED COUNSELING 01/16/2013 MADL PHILOSOPHY SPECIALIST, JHONATAN L V73.81 HPV SCREENING 01/16/2013 MADL PHILOSOPHY SPECIALIST, JHONATAN L V76.10 BREAST CANCER SCREENING 01/16/2013 MADL PHILOSOPHY SPECIALIST, JHONATAN L V76.51 SPECIAL SCREENING FOR MALIGNANT NEOPLASMS COLON 01/16/2013 CURRIE DO, AMELIA K V65.49 OTHER SPECIFIED COUNSELING 01/16/2013 CURRIE DO, AMELIA K V73.81 HPV SCREENING 01/16/2013 CURRIE DO, AMELIA K V76.10 BREAST CANCER SCREENING 01/16/2013 CURRIE DO, AMELIA K V76.51 SPECIAL SCREENING FOR MALIGNANT NEOPLASMS COLON 01/16/2013 MADL PHILOSOPHY SPECIALIST, JHONATAN L V65.49 OTHER SPECIFIED COUNSELING 01/16/2013 MADL PHILOSOPHY SPECIALIST, JHONATAN L V73.81 HPV SCREENING 01/16/2013 MADL PHILOSOPHY SPECIALIST, JHONATAN L V76.10 BREAST CANCER SCREENING 01/16/2013 MADL PHILOSOPHY SPECIALIST, JHONATAN L V76.51 SPECIAL SCREENING FOR MALIGNANT NEOPLASMS COLON 01/16/2013 MADL PHILOSOPHY SPECIALIST, JHONATAN L V65.49 OTHER SPECIFIED COUNSELING 01/16/2013 MADL PHILOSOPHY SPECIALIST, JHONATAN L V73.81 HPV SCREENING 01/16/2013 MADL PHILOSOPHY SPECIALIST, JHONATAN L V76.10 BREAST CANCER SCREENING 01/16/2013 MADL PHILOSOPHY SPECIALIST, JHONATAN L V76.51 SPECIAL SCREENING FOR MALIGNANT NEOPLASMS COLON 01/16/2013 MADL PHILOSOPHY SPECIALIST, JHONATAN L V65.49 OTHER SPECIFIED COUNSELING 01/16/2013 MADL PHILOSOPHY SPECIALIST, JHONATAN L V73.81 HPV SCREENING 01/16/2013 M[facility] PHILOSOPHY SPECIALIST, JHONATAN L V76.10 BREAST CANCER SCREENING 01/16/2013 MAD[facility] PHILOSOPHY SPECIALIST, JHONATAN L V76.51 SPECIAL SCREENING FOR MALIGNANT NEOPLASMS COLON 01/16/2013 CURRIE DO, AMELIA K V65.49 OTHER SPECIFIED COUNSELING 01/16/2013 CURRIE DO, AMELIA K V73.81 HPV SCREENING 01/16/2013 CURRIE DO, AMELIA K V76.10 BREAST CANCER SCREENING 01/16/2013 CURRIE DO, AMELIA K V76.51 SPECIAL SCREENING FOR MALIGNANT NEOPLASMS COLON 01/16/2013 [facility]AD[facility] PHILOSOPHY SPECIALIST, JHONATAN L V65.49 OTHER SPECIFIED COUNSELING 01/16/2013 MAD[facility] PHILOSOPHY SPECIALIST, JHONATAN L V73.81 HPV SCREENING 01/16/2013 MAD[facility] PHILOSOPHY SPECIALIST, JHONATAN L V76.10 BREAST CANCER SCREENING 01/16/2013 MAD[facility] PHILOSOPHY SPECIALIST, JHONATAN L V76.51 SPECIAL SCREENING FOR MALIGNANT NEOPLASMS COLON 01/16/2013 MAD[facility] PHILOSOPHY SPECIALIST, JHONATAN L V65.49 OTHER SPECIFIED COUNSELING 01/16/2013 MAD[facility] PHILOSOPHY SPECIALIST, JHONATAN L V73.81 HPV SCREENING 01/16/2013 MAD[facility] PHILOSOPHY SPECIALIST, JHONATAN L V76.10 BREAST CANCER SCREENING 01/16/2013 MAD[facility] PHILOSOPHY SPECIALIST, JHONATAN L V76.51 SPECIAL SCREENING FOR MALIGNANT NEOPLASMS COLON 01/16/2013 [facility] PHILOSOPHY SPECIALIST, ZACHARIAH R V65.49 OTHER SPECIFIED COUNSELING 01/16/2013 M[facility]ER[facility] PHILOSOPHY SPECIALIST, ZACHARIAH R V73.81 HPV SCREENING 01/16/2013 [facility] PHILOSOPHY SPECIALIST, ZACHARIAH R V76.10 BREAST CANCER SCREENING 01/16/2013 M[facility]ERICK PHILOSOPHY SPECIALIST, ZACHARIAH R V76.51 SPECIAL SCREENING FOR MALIGNANT NEOPLASMS COLON 01/16/2013 MAD[facility] PHILOSOPHY SPECIALIST, JHONATAN L V65.49 OTHER SPECIFIED COUNSELING 01/16/2013 MAD[facility] PHILOSOPHY SPECIALIST, JHONATAN L V73.81 HPV SCREENING 01/16/2013 M[facility] PHILOSOPHY SPECIALIST, JHONATAN L V76.10 BREAST CANCER SCREENING 01/16/2013 [facility] PHILOSOPHY SPECIALIST, JHONATAN L V76.51 SPECIAL SCREENING FOR MALIGNANT NEOPLASMS COLON 01/16/2013 MAD PHILOSOPHY SPECIALIST, JHONATAN L V65.49 OTHER SPECIFIED COUNSELING 01/16/2013 MAD[facility] PHILOSOPHY SPECIALIST, JHONATAN L V73.81 HPV SCREENING 01/16/2013 MAD[facility] PHILOSOPHY SPECIALIST, JHONATAN L V76.10 BREAST CANCER SCREENING 01/16/2013 MAD[facility] PHILOSOPHY SPECIALIST, JHONATAN L V76.51 SPECIAL SCREENING FOR MALIGNANT NEOPLASMS COLON 01/16/2013 MAD[facility] PHILOSOPHY SPECIALIST, JHONATAN L V65.49 OTHER SPECIFIED COUNSELING 01/16/2013 MAD[facility] PHILOSOPHY SPECIALIST, JHONATAN L V73.81 HPV SCREENING 01/16/2013 MAD[facility] PHILOSOPHY SPECIALIST, JHONATAN L V76.10 BREAST CANCER SCREENING 01/16/2013 MAD[facility] PHILOSOPHY SPECIALIST, JHONATAN L V76.51 SPECIAL SCREENING FOR MALIGNANT NEOPLASMS COLON 01/16/2013 MAD[facility] PHILOSOPHY SPECIALIST, JHONATAN L V65.49 OTHER SPECIFIED COUNSELING 01/16/2013 MAD[facility] PHILOSOPHY SPECIALIST, JHONATAN L V73.81 HPV SCREENING 01/16/2013 MAD[facility] PHILOSOPHY SPECIALIST, JHONATAN L V76.10 BREAST CANCER SCREENING 01/16/2013 MAD[facility] PHILOSOPHY SPECIALIST, JHONATAN L V76.51 SPECIAL SCREENING FOR MALIGNANT NEOPLASMS COLON 01/16/2013 MAD[facility] PHILOSOPHY SPECIALIST, JHONATAN L V65.49 OTHER SPECIFIED COUNSELING 01/16/2013 MAD[facility] PHILOSOPHY SPECIALIST, JHONATAN L V73.81 HPV SCREENING 01/16/2013 MAD[facility] PHILOSOPHY SPECIALIST, JHOANTAN L V76.10 BREAST CANCER SCREENING 01/16/2013 MAD[facility] PHILOSOPHY SPECIALIST, JHONATAN L V76.51 SPECIAL SCREENING FOR MALIGNANT NEOPLASMS COLON 01/16/2013 MADL PHILOSOPHY SPECIALIST, JHONATAN L V65.49 OTHER SPECIFIED COUNSELING 01/16/2013 MAD[facility] PHILOSOPHY SPECIALIST, JHONATAN L V73.81 HPV SCREENING 01/16/2013 MAD[facility] PHILOSOPHY SPECIALIST, JHONATAN L V76.10 BREAST CANCER SCREENING 01/16/2013 MADL PHILOSOPHY SPECIALIST, JHONATAN L V76.51 SPECIAL SCREENING FOR MALIGNANT NEOPLASMS COLON 01/16/2013 CURRIE DO AMELIA K V65.49 OTHER SPECIFIED COUNSELING 01/16/2013 CURRIE DO AMELIA K V73.81 HPV SCREENING 01/16/2013 CURRIE DO AMELIA K V76.10 BREAST CANCER SCREENING 01/16/2013 CURRIE DO AMELIA K V76.51 SPECIAL SCREENING FOR MALIGNANT NEOPLASMS COLON 01/16/2013 MAD[facility] PHILOSOPHY SPECIALIST, JHONATAN L V65.49 OTHER SPECIFIED COUNSELING 01/16/2013 MAD[facility] PHILOSOPHY SPECIALIST, JHONATAN L V73.81 HPV SCREENING 01/16/2013 MAD[facility] PHILOSOPHY SPECIALIST, JHONATAN L V76.10 BREAST CANCER SCREENING 01/16/2013 MAD PHILOSOPHY SPECIALIST, JHONATAN L V76.51 SPECIAL SCREENING FOR MALIGNANT NEOPLASMS COLON 01/16/2013 [facility] PHILOSOPHY SPECIALIST, BHARAT S V65.49 OTHER SPECIFIED COUNSELING 01/16/2013 [facility] PHILOSOPHY SPECIALIST, BHARAT S V73.81 HPV SCREENING 01/16/2013 [facility] PHILOSOPHY SPECIALIST, BHARAT S V76.10 BREAST CANCER SCREENING 01/16/2013 [facility] PHILOSOPHY SPECIALIST, BHARAT S V76.51 SPECIAL SCREENING FOR MALIGNANT [...] 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 05/08/2013 MAD[facility] PHILOSOPHY SPECIALIST, JHONATAN L 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 05/08/2013 [facility] PHILOSOPHY SPECIALIST, JHONATAN L 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 05/08/2013 CURRIE DO, AMELIA K 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 05/08/2013 [facility] PHILOSOPHY SPECIALIST, JHONATAN L 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 05/08/2013 [facility] PHILOSOPHY SPECIALIST, JHONATAN L 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 05/08/2013 [facility] PHILOSOPHY SPECIALIST, JHONATAN L 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 05/08/2013 CURRIE DO, AMELIA K 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 05/08/2013 [facility] PHILOSOPHY SPECIALIST, JHONATAN L 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 05/08/2013 [facility] PHILOSOPHY SPECIALIST, JHONATAN L 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 05/08/2013 [facility] PHILOSOPHY SPECIALIST, ZACHARIAH R 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 05/08/2013 [facility] PHILOSOPHY SPECIALIST, JHONATAN L 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 05/08/2013 [facility] PHILOSOPHY SPECIALIST, JHONATAN L 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 05/08/2013 [facility] PHILOSOPHY SPECIALIST, JHONATAN L 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 05/08/2013 [facility] PHILOSOPHY SPECIALIST, JHONATAN L 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 05/08/2013 [facility] PHILOSOPHY SPECIALIST, JHONATAN L 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 05/08/2013 [facility] PHILOSOPHY SPECIALIST, JHONATAN L 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 05/08/2013 CURRIE DO, AMELIA K 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 05/08/2013 [facility] PHILOSOPHY SPECIALIST, JHONATAN L 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 05/08/2013 [facility] PHILOSOPHY SPECIALIST, BHARAT S 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 05/08/2013 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 05/08/2013 [facility]ER[facility] PHILOSOPHY SPECIALIST, ZACHARIAH R 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 [...] AMELIA K V04.81 FLU SHOT 10/02/2013 [facility] PHILOSOPHY SPECIALIST, MACRI A V04.81 FLU SHOT 10/02/2013 [facility] PHILOSOPHY SPECIALIST, JHONATAN L V04.81 FLU SHOT 10/02/2013 V04.81 FLU SHOT 10/02/2013 CURRIE DO, AMELIA K V04.81 FLU SHOT 10/02/2013 CURRIE DO, AMELIA K V04.81 FLU SHOT 10/02/2013 M[facility] PHILOSOPHY SPECIALIST, JHONATAN L V04.81 FLU SHOT 10/02/2013 MADL PHILOSOPHY SPECIALIST, JHONATAN L V04.81 FLU SHOT 10/02/2013 MADL PHILOSOPHY SPECIALIST, JHONATAN L V04.81 FLU SHOT 10/02/2013 CURRIE DO, AMELIA K V04.81 FLU SHOT 10/02/2013 MADL PHILOSOPHY SPECIALIST, JHONATAN L V04.81 FLU SHOT 10/02/2013 MADL PHILOSOPHY SPECIALIST, JHONATAN L V04.81 FLU SHOT 10/02/2013 MADL PHILOSOPHY SPECIALIST, JHONATAN L V04.81 FLU SHOT 10/02/2013 CURRIE DO, AMELIA K V04.81 FLU SHOT 10/02/2013 MADL PHILOSOPHY SPECIALIST, JHONATAN L V04.81 FLU SHOT 10/02/2013 MADL PHILOSOPHY SPECIALIST, JHONATAN L V04.81 FLU SHOT 10/02/2013 ZACHARIAH TEMPLE APRN R V04.81 FLU SHOT 10/02/2013 M[facility] PHILOSOPHY SPECIALIST, JHONATAN L V04.81 FLU SHOT 10/02/2013 MADL PHILOSOPHY SPECIALIST, JHONATAN L V04.81 FLU SHOT 10/02/2013 MADL PHILOSOPHY SPECIALIST, JHONATAN L V04.81 FLU SHOT 10/02/2013 MADL PHILOSOPHY SPECIALIST, JHONATAN L V04.81 FLU SHOT 10/02/2013 MADL PHILOSOPHY SPECIALIST, JHONATAN L V04.81 FLU SHOT 10/02/2013 MADL PHILOSOPHY SPECIALIST, JHONATAN L V04.81 FLU SHOT 10/02/2013 CURRIE DO, AMELIA K V04.81 FLU SHOT 10/02/2013 MADL PHILOSOPHY SPECIALIST, JHONATAN L V04.81 FLU SHOT 10/02/2013 [facility]ANC[facility] PHILOSOPHY SPECIALIST, BHARAT S V04.81 FLU SHOT 10/02/2013 V04.81 FLU SHOT 10/02/2013 MAVERICK PHILOSOPHY SPECIALIST, ZACHARIAH R V04.81 FLU SHOT 10/02/2013 ALMONTESAE [...] K 790.21 IMPAIRED FASTING GLUCOSE 12/06/2013 CHARITY PHILOSOPHY SPECIALIST, MARCI A 496 CHRONIC OBSTRUCTIVE PULMONARY DISEASE 12/06/2013 CHARITY PHILOSOPHY SPECIALIST, MARCI A 790.21 IMPAIRED FASTING GLUCOSE 12/06/2013 MADL PHILOSOPHY SPECIALIST, JHONATAN L 496 CHRONIC OBSTRUCTIVE PULMONARY DISEASE 12/06/2013 MADL PHILOSOPHY SPECIALIST, JHONATAN L 790.21 IMPAIRED FASTING GLUCOSE 12/06/2013 496 CHRONIC OBSTRUCTIVE PULMONARY DISEASE 12/06/2013 790.21 IMPAIRED FASTING GLUCOSE 12/06/2013 CURRIE DO, AMELIA K 496 CHRONIC OBSTRUCTIVE PULMONARY DISEASE 12/06/2013 CURRIE DO, AMELIA K 790.21 IMPAIRED FASTING GLUCOSE 12/06/2013 CURRIE DO, AMELIA K 496 CHRONIC OBSTRUCTIVE PULMONARY DISEASE 12/06/2013 CURRIE DO, AMELIA K 790.21 IMPAIRED FASTING GLUCOSE 12/06/2013 MADL PHILOSOPHY SPECIALIST, JHONATAN L 496 CHRONIC OBSTRUCTIVE PULMONARY DISEASE 12/06/2013 MADL PHILOSOPHY SPECIALIST, JHONATAN L 790.21 IMPAIRED FASTING GLUCOSE 12/06/2013 MADL PHILOSOPHY SPECIALIST, JHONATAN L 496 CHRONIC OBSTRUCTIVE PULMONARY DISEASE 12/06/2013 MADL PHILOSOPHY SPECIALIST, JHONATAN L 790.21 IMPAIRED FASTING GLUCOSE 12/06/2013 MADL PHILOSOPHY SPECIALIST, JHONATAN L 496 CHRONIC OBSTRUCTIVE PULMONARY DISEASE 12/06/2013 MADL PHILOSOPHY SPECIALIST, JHONATAN L 790.21 IMPAIRED FASTING GLUCOSE 12/06/2013 CURRIE DO, AMELIA K 496 CHRONIC OBSTRUCTIVE PULMONARY DISEASE 12/06/2013 CURRIE DO, AMELIA K 790.21 IMPAIRED FASTING GLUCOSE 12/06/2013 MADL PHILOSOPHY SPECIALIST, JHONATAN L 496 CHRONIC OBSTRUCTIVE PULMONARY DISEASE 12/06/2013 MADL PHILOSOPHY SPECIALIST, JHONATAN L 790.21 IMPAIRED FASTING GLUCOSE 12/06/2013 MADL PHILOSOPHY SPECIALIST, JHONATAN L 496 CHRONIC OBSTRUCTIVE PULMONARY DISEASE 12/06/2013 MADL PHILOSOPHY SPECIALIST, JHONATAN L 790.21 IMPAIRED FASTING GLUCOSE 12/06/2013 MADL PHILOSOPHY SPECIALIST, JHONATAN L 496 CHRONIC OBSTRUCTIVE PULMONARY DISEASE 12/06/2013 MADL PHILOSOPHY SPECIALIST, JHONATAN L 790.21 IMPAIRED FASTING GLUCOSE 12/06/2013 CURRIE DO, AMELIA K 496 CHRONIC OBSTRUCTIVE PULMONARY DISEASE 12/06/2013 CURRIE DO, AMELIA K 790.21 IMPAIRED FASTING GLUCOSE 12/06/2013 MADL PHILOSOPHY SPECIALIST, JHONATAN L 496 CHRONIC OBSTRUCTIVE PULMONARY DISEASE 12/06/2013 MADL PHILOSOPHY SPECIALIST, JHONATAN L 790.21 IMPAIRED FASTING GLUCOSE 12/06/2013 MADL PHILOSOPHY SPECIALIST, JHONATAN L 496 CHRONIC OBSTRUCTIVE PULMONARY DISEASE 12/06/2013 MADL PHILOSOPHY SPECIALIST, JHONATAN L 790.21 IMPAIRED FASTING GLUCOSE 12/06/2013 MAVERICK FUCHS ZACHARIAH R 496 CHRONIC OBSTRUCTIVE PULMONARY DISEASE 12/06/2013 MAVERICK PHILOSOPHY SPECIALIST, ZACHARIAH R 790.21 IMPAIRED FASTING GLUCOSE 12/06/2013 MADL PHILOSOPHY SPECIALIST, JHONATAN L 496 CHRONIC OBSTRUCTIVE PULMONARY DISEASE 12/06/2013 MADL PHILOSOPHY SPECIALIST, JHONATAN L 790.21 IMPAIRED FASTING GLUCOSE 12/06/2013 MADL PHILOSOPHY SPECIALIST, JHONATAN L 496 CHRONIC OBSTRUCTIVE PULMONARY DISEASE 12/06/2013 MADL PHILOSOPHY SPECIALIST, JHONATAN L 790.21 IMPAIRED FASTING GLUCOSE 12/06/2013 MADL PHILOSOPHY SPECIALIST, JHONATAN L 496 CHRONIC OBSTRUCTIVE PULMONARY DISEASE 12/06/2013 MADL PHILOSOPHY SPECIALIST, JHONATAN L 790.21 IMPAIRED FASTING GLUCOSE 12/06/2013 MADL PHILOSOPHY SPECIALIST, JHONATAN L 496 CHRONIC OBSTRUCTIVE PULMONARY DISEASE 12/06/2013 MADL PHILOSOPHY SPECIALIST, JHONATAN L 790.21 IMPAIRED FASTING GLUCOSE 12/06/2013 MADL PHILOSOPHY SPECIALIST, JHONATAN L 496 CHRONIC OBSTRUCTIVE PULMONARY DISEASE 12/06/2013 MADL PHILOSOPHY SPECIALIST, JHONATAN L 790.21 IMPAIRED FASTING GLUCOSE 12/06/2013 MADL PHILOSOPHY SPECIALIST, JHONATAN L 496 CHRONIC OBSTRUCTIVE PULMONARY DISEASE 12/06/2013 MADL PHILOSOPHY SPECIALIST, JHONATAN L 790.21 IMPAIRED FASTING GLUCOSE 12/06/2013 CURRIE DO, AMELIA K 496 CHRONIC OBSTRUCTIVE PULMONARY DISEASE 12/06/2013 CURRIE DO AMELIA K 790.21 IMPAIRED FASTING GLUCOSE 12/06/2013 MADL PHILOSOPHY SPECIALIST, JHONATAN L 496 CHRONIC OBSTRUCTIVE PULMONARY DISEASE 12/06/2013 MADL PHILOSOPHY SPECIALIST, JHONATAN L 790.21 IMPAIRED FASTING GLUCOSE 12/06/2013 BLANCHE PHILOSOPHY SPECIALIST, BHARAT S 496 CHRONIC OBSTRUCTIVE PULMONARY DISEASE 12/06/2013 BLANCHE PHILOSOPHY SPECIALIST, BHARAT S 790.21 IMPAIRED FASTING GLUCOSE 12/06/2013 496 CHRONIC OBSTRUCTIVE PULMONARY DISEASE 12/06/2013 790.21 IMPAIRED FASTING GLUCOSE 12/06/2013 MAVERICK PHILOSOPHY SPECIALIST, ZACHARIAH R 496 CHRONIC OBSTRUCTIVE PULMONARY DISEASE 12/06/2013 MAVERICK PHILOSOPHY SPECIALIST, ZACHARIAH R 790.21 IMPAIRED FASTING GLUCOSE 12/06/2013 [...] IN JOINT INVOLVING SHOULDER REGION 01/22/2014 MADL PHILOSOPHY SPECIALIST, JHONATAN L 719.41 PAIN IN JOINT INVOLVING SHOULDER REGION 01/22/2014 719.41 PAIN IN JOINT INVOLVING SHOULDER REGION 01/22/2014 CURRIE DO AMELIA K 719.41 PAIN IN JOINT INVOLVING SHOULDER REGION 01/22/2014 CURRIE DO AMELIA K 719.41 PAIN IN JOINT INVOLVING SHOULDER REGION 01/22/2014 MADL PHILOSOPHY SPECIALIST, JHONATAN L 719.41 PAIN IN JOINT INVOLVING SHOULDER REGION 01/22/2014 MADL PHILOSOPHY SPECIALIST, JHONATAN L 719.41 PAIN IN JOINT INVOLVING SHOULDER REGION 01/22/2014 MADL PHILOSOPHY SPECIALIST, JHONATAN L 719.41 PAIN IN JOINT INVOLVING SHOULDER REGION 01/22/2014 CURRIE DO AMELIA K 719.41 PAIN IN JOINT INVOLVING SHOULDER REGION 01/22/2014 MADL PHILOSOPHY SPECIALIST, JHONATAN L 719.41 PAIN IN JOINT INVOLVING SHOULDER REGION 01/22/2014 MADL PHILOSOPHY SPECIALIST, JHONATAN L 719.41 PAIN IN JOINT INVOLVING SHOULDER REGION 01/22/2014 MADL PHILOSOPHY SPECIALIST, JHONATAN L 719.41 PAIN IN JOINT INVOLVING SHOULDER REGION 01/22/2014 CURRIE DO AMELIA K 719.41 PAIN IN JOINT INVOLVING SHOULDER REGION 01/22/2014 MADL PHILOSOPHY SPECIALIST, JHONATAN L 719.41 PAIN IN JOINT INVOLVING SHOULDER REGION 01/22/2014 MADL PHILOSOPHY SPECIALIST, JHONATAN L 719.41 PAIN IN JOINT INVOLVING SHOULDER REGION 01/22/2014 ZACHARIAH TEMPLE APRN 719.41 PAIN IN JOINT INVOLVING SHOULDER REGION 01/22/2014 MADL PHILOSOPHY SPECIALIST, JHONATAN L 719.41 PAIN IN JOINT INVOLVING SHOULDER REGION 01/22/2014 MADL PHILOSOPHY SPECIALIST, JHONATAN L 719.41 PAIN IN JOINT INVOLVING SHOULDER REGION 01/22/2014 MADL PHILOSOPHY SPECIALIST, JHONATAN L 719.41 PAIN IN JOINT INVOLVING SHOULDER REGION 01/22/2014 MADL PHILOSOPHY SPECIALISTDAVIDA L 719.41 PAIN IN JOINT INVOLVING SHOULDER REGION 01/22/2014 MADL PHILOSOPHY SPECIALISTDAVIDA L 719.41 PAIN IN JOINT INVOLVING SHOULDER REGION 01/22/2014 MADL PHILOSOPHY SPECIALISTDAVIDA L 719.41 PAIN IN JOINT INVOLVING SHOULDER REGION 01/22/2014 AMELIA CURRIE DO K 719.41 PAIN IN JOINT INVOLVING SHOULDER REGION 01/22/2014 XIOMARAL PHILOSOPHY SPECIALIST, JHONATAN L 719.41 PAIN IN JOINT INVOLVING [...] APRN Ot 729.5 PAIN IN LIMB 02/06/2014 AMELIA CURRIE DO K 521.00 CARIES 02/06/2014 AMELIA [...] LONG-TERM (CURRENT) USE OF ANTICOAGULANTS 02/06/2014 MADL PHILOSOPHY SPECIALIST, JHONATAN L 521.00 CARIES 02/06/2014 MADL PHILOSOPHY SPECIALIST, JHONATAN L V58.61 LONG-TERM (CURRENT) USE OF ANTICOAGULANTS 02/06/2014 521.00 CARIES 02/06/2014 V58.61 LONG-TERM ( CURRENT) USE OF ANTICOAGULANTS 02/06/2014 CURRIE DO, AMELIA K 521.00 CARIES 02/06/2014 CURRIE DO, AMELIA K V58.61 LONG-TERM (CURRENT) USE OF ANTICOAGULANTS 02/06/2014 CURRIE DO, AMELIA K 521.00 CARIES 02/06/2014 CURRIE DO, AMELIA K V58.61 LONG-TERM (CURRENT) USE OF ANTICOAGULANTS 02/06/2014 MADL PHILOSOPHY SPECIALIST, JHONATAN L 521.00 CARIES 02/06/2014 MADL PHILOSOPHY SPECIALIST, JHONATAN L V58.61 LONG-TERM (CURRENT) USE OF ANTICOAGULANTS 02/06/2014 MADL PHILOSOPHY SPECIALIST, JHONATAN L 521.00 CARIES 02/06/2014 MADL PHILOSOPHY SPECIALIST, JHONATAN L V58.61 LONG-TERM (CURRENT) USE OF ANTICOAGULANTS 02/06/2014 MADL PHILOSOPHY SPECIALIST, JHONATAN L 521.00 CARIES 02/06/2014 MADL PHILOSOPHY SPECIALIST, JHONATAN L V58.61 LONG-TERM (CURRENT) USE OF ANTICOAGULANTS 02/06/2014 CURRIE DO, AMELIA K 521.00 CARIES 02/06/2014 CURRIE DO, AMELIA K V58.61 LONG-TERM (CURRENT) USE OF ANTICOAGULANTS 02/06/2014 MADL PHILOSOPHY SPECIALIST, JHONATAN L 521.00 CARIES 02/06/2014 MADL PHILOSOPHY SPECIALIST, JHONATAN L V58.61 LONG-TERM (CURRENT) USE OF ANTICOAGULANTS 02/06/2014 MADL PHILOSOPHY SPECIALIST, JHONATAN L 521.00 CARIES 02/06/2014 MADL PHILOSOPHY SPECIALIST, JHONATAN L V58.61 LONG-TERM (CURRENT) USE OF ANTICOAGULANTS 02/06/2014 MADL PHILOSOPHY SPECIALIST, JHONATAN L 521.00 CARIES 02/06/2014 MADL PHILOSOPHY SPECIALIST, JHONATAN L V58.61 LONG-TERM (CURRENT) USE OF ANTICOAGULANTS 02/06/2014 CURRIE DO, AMELIA K 521.00 CARIES 02/06/2014 CURRIE DO, AMELIA K V58.61 LONG-TERM (CURRENT) USE OF ANTICOAGULANTS 02/06/2014 MADL PHILOSOPHY SPECIALIST, JHONATAN L 521.00 CARIES 02/06/2014 MADL PHILOSOPHY SPECIALIST, JHONATAN L V58.61 LONG-TERM (CURRENT) USE OF ANTICOAGULANTS 02/06/2014 MADL PHILOSOPHY SPECIALIST, JHONATAN L 521.00 CARIES 02/06/2014 MADL PHILOSOPHY SPECIALIST, JHONATAN L V58.61 LONG-TERM (CURRENT) USE OF ANTICOAGULANTS 02/06/2014 MAVERICK PHILOSOPHY SPECIALIST, ZACHARIAH R 521.00 CARIES 02/06/2014 MAVERICK PHILOSOPHY SPECIALIST, ZACHARIAH R V58.61 LONG-TERM (CURRENT) USE OF ANTICOAGULANTS 02/06/2014 MADL PHILOSOPHY SPECIALIST, JHONATAN L 521.00 CARIES 02/06/2014 MADL PHILOSOPHY SPECIALIST, JHONATAN L V58.61 LONG-TERM (CURRENT) USE OF ANTICOAGULANTS 02/06/2014 MADL PHILOSOPHY SPECIALIST, JHONATAN L 521.00 CARIES 02/06/2014 MADL PHILOSOPHY SPECIALIST, JHONATAN L V58.61 LONG-TERM (CURRENT) USE OF ANTICOAGULANTS 02/06/2014 MADL PHILOSOPHY SPECIALIST, JHONATAN L 521.00 CARIES 02/06/2014 MADL PHILOSOPHY SPECIALIST, JHONATAN L V58.61 LONG-TERM (CURRENT) USE OF ANTICOAGULANTS 02/06/2014 MADL PHILOSOPHY SPECIALIST, JHONATAN L 521.00 CARIES 02/06/2014 MADL PHILOSOPHY SPECIALIST, JHONATAN L V58.61 LONG-TERM (CURRENT) USE OF ANTICOAGULANTS 02/06/2014 MADL PHILOSOPHY SPECIALIST, JHONATAN L 521.00 CARIES 02/06/2014 MADL PHILOSOPHY SPECIALIST, JHONATAN L V58.61 LONG-TERM (CURRENT) USE OF ANTICOAGULANTS 02/06/2014 MADL PHILOSOPHY SPECIALIST, JHONATAN L 521.00 CARIES 02/06/2014 MADL PHILOSOPHY SPECIALIST, JHONATAN L V58.61 LONG-TERM (CURRENT) USE OF ANTICOAGULANTS 02/06/2014 CURRIE DO, AMELIA K 521.00 CARIES 02/06/2014 CURRIE DO, AMELIA K V58.61 LONG-TERM (CURRENT) USE OF ANTICOAGULANTS 02/06/2014 MADL PHILOSOPHY SPECIALIST, JOHNATAN L 521.00 CARIES 02/06/2014 XIOMARAJennifer FUCHS JHONATAN L V58.61 LONG-TERM (CURRENT) USE OF ANTICOAGULANTS 02/06/2014 JOVON MANCIA APRNA S 521.00 CARIES 02/06/2014 [facility] PHILOSOPHY SPECIALIST BHARAT S V58.61 LONG-TERM (CURRENT) USE OF ANTICOAGULANTS 02/06/2014 521.00 CARIES 02/06/2014 V58.61 LONG-TERM ( CURRENT) USE OF ANTICOAGULANTS 02/06/2014 [facility] PHILOSOPHY SPECIALIST ZACHARIAH R 521.00 CARIES 02/06/2014 MAVERICK PHILOSOPHY SPECIALIST, ZACHARIAH R V58.61 LONG-TERM (CURRENT) USE OF ANTICOAGULANTS 02/06/2014 SUZY SIMMSSSAE 521.00 CARIES 02/06/2014 ALMONTE DDSSAE V58.61 LONG-TERM (CURRENT) USE OF ANTICOAGULANTS 02/26/2014 CURRIE DO, AMELIA K 599.0 URINARY TRACT INFECTION 02/26/2014 CURRIE DO, AMELIA K 599.70 HEMATURIA UNSPECIFIED 02/26/2014 CURRIE DO, AMELIA K 786.2 COUGH 02/26/2014 CURRIE DO, AMELIA K V72.31 ROUTE INSPECTOR EXAM, ROUTINE 02/26/2014 CURRIE DO, AMELIA K V76.2 CERVICAL CANCER SCREENING (PAP SMEAR) 02/26/2014 CURRIE DO, AMELIA K 599.0 URINARY TRACT INFECTION 02/26/2014 CURRIE DO, AMELIA K 599.70 HEMATURIA UNSPECIFIED 02/26/2014 CURRIE DO, AMELIA K 786.2 COUGH 02/26/2014 CURRIE DO, AMELIA K V72.31 ROUTE INSPECTOR EXAM, ROUTINE 02/26/2014 CURRIE DO, AMELIA K V76.2 CERVICAL CANCER SCREENING (PAP SMEAR) 02/26/2014 CHARITY PHILOSOPHY SPECIALIST, MARCI A 599.0 URINARY TRACT INFECTION 02/26/2014 CHARITY PHILOSOPHY SPECIALIST, MARCI A 599.70 HEMATURIA UNSPECIFIED 02/26/2014 CHARITY PHILOSOPHY SPECIALIST, MARCI A 786.2 COUGH 02/26/2014 CHARITY PHILOSOPHY SPECIALIST, MARCI A V72.31 ROUTE INSPECTOR EXAM, ROUTINE 02/26/2014 CHARITY PHILOSOPHY SPECIALIST, MARCI A V76.2 CERVICAL CANCER SCREENING (PAP SMEAR) 02/26/2014 MADL PHILOSOPHY SPECIALIST, JHONATAN L 599.0 URINARY TRACT INFECTION 02/26/2014 MADL PHILOSOPHY SPECIALIST, JHONATAN L 599.70 HEMATURIA UNSPECIFIED 02/26/2014 MADL PHILOSOPHY SPECIALIST, JHONATAN L 786.2 COUGH 02/26/2014 MADL PHILOSOPHY SPECIALIST, JHONATAN L V72.31 ROUTE INSPECTOR EXAM, ROUTINE 02/26/2014 MADL PHILOSOPHY SPECIALIST, JHONATAN L V76.2 CERVICAL CANCER SCREENING (PAP SMEAR) 02/26/2014 599.0 URINARY TRACT INFECTION 02/26/2014 599.70 HEMATURIA UNSPECIFIED 02/26/2014 786.2 COUGH 02/26/2014 V72.31 ROUTE INSPECTOR EXAM, ROUTINE 02/26/2014 V76.2 CERVICAL CANCER SCREENING (PAP SMEAR) 02/26/2014 CURRIE DO, AMELIA K 599.0 URINARY TRACT INFECTION 02/26/2014 CURRIE DO, AMELIA K 599.70 HEMATURIA UNSPECIFIED 02/26/2014 CURRIE DO, AMELIA K 786.2 COUGH 02/26/2014 CURRIE DO, AMELIA K V72.31 ROUTE INSPECTOR EXAM, ROUTINE 02/26/2014 CURRIE DO, AMELIA K V76.2 CERVICAL CANCER SCREENING (PAP SMEAR) 02/26/2014 CURRIE DO, AMELIA K 599.0 URINARY TRACT INFECTION 02/26/2014 CURRIE DO, AMELIA K 599.70 HEMATURIA UNSPECIFIED 02/26/2014 CURRIE DO, AMELIA K 786.2 COUGH 02/26/2014 CURRIE DO, AMELIA K V72.31 ROUTE INSPECTOR EXAM, ROUTINE 02/26/2014 CURRIE DO, AMELIA K V76.2 CERVICAL CANCER SCREENING (PAP SMEAR) 02/26/2014 MADL PHILOSOPHY SPECIALIST, JHONATAN L 599.0 URINARY TRACT INFECTION 02/26/2014 MADL PHILOSOPHY SPECIALIST, JHONATAN L 599.70 HEMATURIA UNSPECIFIED 02/26/2014 MADL PHILOSOPHY SPECIALIST, JHONATAN L 786.2 COUGH 02/26/2014 MADL PHILOSOPHY SPECIALIST, JHONATAN L V72.31 ROUTE INSPECTOR EXAM, ROUTINE 02/26/2014 MADL PHILOSOPHY SPECIALIST, JHONATAN L V76.2 CERVICAL CANCER SCREENING (PAP SMEAR) 02/26/2014 MADL PHILOSOPHY SPECIALIST, JHONATAN L 599.0 URINARY TRACT INFECTION 02/26/2014 MADL PHILOSOPHY SPECIALIST, JHONATAN L 599.70 HEMATURIA UNSPECIFIED 02/26/2014 MADL PHILOSOPHY SPECIALIST, JHONATAN L 786.2 COUGH 02/26/2014 MADL PHILOSOPHY SPECIALIST, JHONATAN L V72.31 ROUTE INSPECTOR EXAM, ROUTINE 02/26/2014 MADL PHILOSOPHY SPECIALIST, JHONATAN L V76.2 CERVICAL CANCER SCREENING (PAP SMEAR) 02/26/2014 MADL PHILOSOPHY SPECIALIST, JHONATAN L 599.0 URINARY TRACT INFECTION 02/26/2014 MADL PHILOSOPHY SPECIALIST, JHONATAN L 599.70 HEMATURIA UNSPECIFIED 02/26/2014 MADL PHILOSOPHY SPECIALIST, JHONATAN L 786.2 COUGH 02/26/2014 MADL PHILOSOPHY SPECIALIST, JHONATAN L V72.31 ROUTE INSPECTOR EXAM, ROUTINE 02/26/2014 MADL PHILOSOPHY SPECIALIST, JHONATAN L V76.2 CERVICAL CANCER SCREENING (PAP SMEAR) 02/26/2014 CURRIE DO, AMELIA K 599.0 URINARY TRACT INFECTION 02/26/2014 CURRIE DO, AMELIA K 599.70 HEMATURIA UNSPECIFIED 02/26/2014 CURRIE DO, AMELIA K 786.2 COUGH 02/26/2014 CURRIE DO, AMELIA K V72.31 ROUTE INSPECTOR EXAM, ROUTINE 02/26/2014 CURRIE DO, AMELIA K V76.2 CERVICAL CANCER SCREENING (PAP SMEAR) 02/26/2014 MADL PHILOSOPHY SPECIALIST, JHONATAN L 599.0 URINARY TRACT INFECTION 02/26/2014 MADL PHILOSOPHY SPECIALIST, JHONATAN L 599.70 HEMATURIA UNSPECIFIED 02/26/2014 MADL PHILOSOPHY SPECIALIST, JHONATAN L 786.2 COUGH 02/26/2014 MADL PHILOSOPHY SPECIALIST, JHONATAN L V72.31 ROUTE INSPECTOR EXAM, ROUTINE 02/26/2014 MADL PHILOSOPHY SPECIALIST, JHONATAN L V76.2 CERVICAL CANCER SCREENING (PAP SMEAR) 02/26/2014 MADL PHILOSOPHY SPECIALIST, JHONATAN L 599.0 URINARY TRACT INFECTION 02/26/2014 MADL PHILOSOPHY SPECIALIST, JHONATAN L 599.70 HEMATURIA UNSPECIFIED 02/26/2014 MADL PHILOSOPHY SPECIALIST, JHONATAN L 786.2 COUGH 02/26/2014 MADL PHILOSOPHY SPECIALIST, JHONATAN L V72.31 ROUTE INSPECTOR EXAM, ROUTINE 02/26/2014 MADL PHILOSOPHY SPECIALIST, JHONATAN L V76.2 CERVICAL CANCER SCREENING (PAP SMEAR) 02/26/2014 MADL PHILOSOPHY SPECIALIST, JHONATAN L 599.0 URINARY TRACT INFECTION 02/26/2014 MADL PHILOSOPHY SPECIALIST, JHONATAN L 599.70 HEMATURIA UNSPECIFIED 02/26/2014 MADL PHILOSOPHY SPECIALIST, JHONATAN L 786.2 COUGH 02/26/2014 MADL PHILOSOPHY SPECIALIST, JHONATAN L V72.31 ROUTE INSPECTOR EXAM, ROUTINE 02/26/2014 MADL PHILOSOPHY SPECIALIST, JHONATAN L V76.2 CERVICAL CANCER SCREENING (PAP SMEAR) 02/26/2014 CURRIE DO, AMELIA K 599.0 URINARY TRACT INFECTION 02/26/2014 CURRIE DO, AMELIA K 599.70 HEMATURIA UNSPECIFIED 02/26/2014 CURRIE DO, AMELIA K 786.2 COUGH 02/26/2014 CURRIE DO, AMELIA K V72.31 ROUTE INSPECTOR EXAM, ROUTINE 02/26/2014 CURRIE DO, AMELIA K V76.2 CERVICAL CANCER SCREENING (PAP SMEAR) 02/26/2014 MADL PHILOSOPHY SPECIALIST, JHONATAN L 599.0 URINARY TRACT INFECTION 02/26/2014 MADL PHILOSOPHY SPECIALIST, JHONATAN L 599.70 HEMATURIA UNSPECIFIED 02/26/2014 MADL PHILOSOPHY SPECIALIST, JHONATAN L 786.2 COUGH 02/26/2014 MADL PHILOSOPHY SPECIALIST, JHONATAN L V72.31 ROUTE INSPECTOR EXAM, ROUTINE 02/26/2014 MADL PHILOSOPHY SPECIALIST, JHONATAN L V76.2 CERVICAL CANCER SCREENING (PAP SMEAR) 02/26/2014 MADL PHILOSOPHY SPECIALIST, JHONATAN L 599.0 URINARY TRACT INFECTION 02/26/2014 MADL PHILOSOPHY SPECIALIST, JHONATAN L 599.70 HEMATURIA UNSPECIFIED 02/26/2014 MADL PHILOSOPHY SPECIALIST, JHONATAN L 786.2 COUGH 02/26/2014 MADL PHILOSOPHY SPECIALIST, JHONATAN L V72.31 ROUTE INSPECTOR EXAM, ROUTINE 02/26/2014 MADL PHILOSOPHY SPECIALIST, JHONATAN L V76.2 CERVICAL CANCER SCREENING (PAP SMEAR) 02/26/2014 MAVERICK PHILOSOPHY SPECIALIST, ZACHARIAH R 599.0 URINARY TRACT INFECTION 02/26/2014 MAVERICK PHILOSOPHY SPECIALIST, ZACHARIAH R 599.70 HEMATURIA UNSPECIFIED 02/26/2014 MAVERICK PHILOSOPHY SPECIALIST, ZACHARIAH R 786.2 COUGH 02/26/2014 MAVERICK PHILOSOPHY SPECIALIST, ZACHARIAH R V72.31 ROUTE INSPECTOR EXAM, ROUTINE 02/26/2014 MAVERICK PHILOSOPHY SPECIALIST ZACHARIAH R V76.2 CERVICAL CANCER SCREENING (PAP SMEAR) 02/26/2014 MADL PHILOSOPHY SPECIALIST, JHONATAN L 599.0 URINARY TRACT INFECTION 02/26/2014 MADL PHILOSOPHY SPECIALIST, JHONATAN L 599.70 HEMATURIA UNSPECIFIED 02/26/2014 MADL PHILOSOPHY SPECIALIST, JHONATAN L 786.2 COUGH 02/26/2014 MADL PHILOSOPHY SPECIALIST, JHONATAN L V72.31 ROUTE INSPECTOR EXAM, ROUTINE 02/26/2014 MADL PHILOSOPHY SPECIALIST, JHONATAN L V76.2 CERVICAL CANCER SCREENING (PAP SMEAR) 02/26/2014 MADL PHILOSOPHY SPECIALIST, JHONATAN L 599.0 URINARY TRACT INFECTION 02/26/2014 MADL PHILOSOPHY SPECIALIST, JHONATAN L 599.70 HEMATURIA UNSPECIFIED 02/26/2014 MADL PHILOSOPHY SPECIALIST, JHONATAN L 786.2 COUGH 02/26/2014 MADL PHILOSOPHY SPECIALIST, JHONATAN L V72.31 ROUTE INSPECTOR EXAM, ROUTINE 02/26/2014 MADL PHILOSOPHY SPECIALIST, JHONATAN L V76.2 CERVICAL CANCER SCREENING (PAP SMEAR) 02/26/2014 MADL PHILOSOPHY SPECIALIST, JHONATAN L 599.0 URINARY TRACT INFECTION 02/26/2014 MADL PHILOSOPHY SPECIALIST, JHONATAN L 599.70 HEMATURIA UNSPECIFIED 02/26/2014 MADL PHILOSOPHY SPECIALIST, JHONATAN L 786.2 COUGH 02/26/2014 MADL PHILOSOPHY SPECIALIST, JHONATAN L V72.31 ROUTE INSPECTOR EXAM, ROUTINE 02/26/2014 MADL PHILOSOPHY SPECIALIST, JHONATAN L V76.2 CERVICAL CANCER SCREENING (PAP SMEAR) 02/26/2014 MADL PHILOSOPHY SPECIALIST, JHONATAN L 599.0 URINARY TRACT INFECTION 02/26/2014 MADL PHILOSOPHY SPECIALIST, JHONATAN L 599.70 HEMATURIA UNSPECIFIED 02/26/2014 MADL PHILOSOPHY SPECIALIST, JHONATAN L 786.2 COUGH 02/26/2014 MADL PHILOSOPHY SPECIALIST, JHONATAN L V72.31 ROUTE INSPECTOR EXAM, ROUTINE 02/26/2014 MADL PHILOSOPHY SPECIALIST, JHONATAN L V76.2 CERVICAL CANCER SCREENING (PAP SMEAR) 02/26/2014 MADL PHILOSOPHY SPECIALIST, JHONATAN L 599.0 URINARY TRACT INFECTION 02/26/2014 MADL PHILOSOPHY SPECIALIST, JHONATAN L 599.70 HEMATURIA UNSPECIFIED 02/26/2014 MADL PHILOSOPHY SPECIALIST, JHONATAN L 786.2 COUGH 02/26/2014 MADL PHILOSOPHY SPECIALIST, JHONATAN L V72.31 ROUTE INSPECTOR EXAM, ROUTINE 02/26/2014 MADL PHILOSOPHY SPECIALIST, JHONATAN L V76.2 CERVICAL CANCER SCREENING (PAP SMEAR) 02/26/2014 MADL PHILOSOPHY SPECIALIST, JHONATAN L 599.0 URINARY TRACT INFECTION 02/26/2014 MADL PHILOSOPHY SPECIALIST, JHONATAN L 599.70 HEMATURIA UNSPECIFIED 02/26/2014 MADL PHILOSOPHY SPECIALIST, JHONATAN L 786.2 COUGH 02/26/2014 MADL PHILOSOPHY SPECIALIST, JHONATAN L V72.31 ROUTE INSPECTOR EXAM, ROUTINE 02/26/2014 MADL PHILOSOPHY SPECIALIST, JHONATAN L V76.2 CERVICAL CANCER SCREENING (PAP SMEAR) 02/26/2014 CURRIE DO, AMELIA K 599.0 URINARY TRACT INFECTION 02/26/2014 CURRIE DO, AMELIA K 599.70 HEMATURIA UNSPECIFIED 02/26/2014 CURRIE DO, AMELIA K 786.2 COUGH 02/26/2014 CURRIE DO, AMELIA K V72.31 ROUTE INSPECTOR EXAM, ROUTINE 02/26/2014 CURRIE DO, AMELIA K V76.2 CERVICAL CANCER SCREENING (PAP SMEAR) 02/26/2014 MADL PHILOSOPHY SPECIALIST, JHONATAN L 599.0 URINARY TRACT INFECTION 02/26/2014 MADL PHILOSOPHY SPECIALIST, JHONATAN L 599.70 HEMATURIA UNSPECIFIED 02/26/2014 MADL PHILOSOPHY SPECIALIST, JHONATAN L 786.2 COUGH 02/26/2014 MADL PHILOSOPHY SPECIALIST, JHONATAN L V72.31 ROUTE INSPECTOR EXAM, ROUTINE 02/26/2014 MADL PHILOSOPHY SPECIALIST, JHONATAN L V76.2 CERVICAL CANCER SCREENING (PAP SMEAR) 02/26/2014 BLANCHE PHILOSOPHY SPECIALIST, BHARAT S 599.0 URINARY TRACT INFECTION 02/26/2014 BLANCHE PHILOSOPHY SPECIALIST, BHARAT S 599.70 HEMATURIA UNSPECIFIED 02/26/2014 BLANCHE PHILOSOPHY SPECIALIST, BHARAT S 786.2 COUGH 02/26/2014 BLANCHE PHILOSOPHY SPECIALIST, BHARAT S V72.31 ROUTE INSPECTOR EXAM, ROUTINE 02/26/2014 BLANCHE PHILOSOPHY SPECIALIST, BHARAT S V76.2 CERVICAL CANCER SCREENING (PAP SMEAR) 02/26/2014 599.0 URINARY TRACT INFECTION 02/26/2014 599.70 HEMATURIA UNSPECIFIED 02/26/2014 786.2 COUGH 02/26/2014 V72.31 ROUTE INSPECTOR EXAM, ROUTINE 02/26/2014 V76.2 CERVICAL CANCER SCREENING (PAP SMEAR) 02/26/2014 MAVERICK PHILOSOPHY SPECIALIST, ZACHARIAH R 599.0 URINARY TRACT INFECTION 02/26/2014 MAVERICK PHILOSOPHY SPECIALIST, ZACHARIAH R 599.70 HEMATURIA UNSPECIFIED 02/26/2014 MAVERICK PHILOSOPHY SPECIALIST, ZACHARIAH R 786.2 COUGH 02/26/2014 MAVERICK PHILOSOPHY SPECIALIST, ZACHARIAH R V72.31 ROUTE INSPECTOR EXAM, ROUTINE 02/26/2014 MAVERICK PHILOSOPHY SPECIALIST, ZACHARIAH R V76.2 CERVICAL CANCER SCREENING (PAP SMEAR) 02/26/2014 ALMONTE DDS, SAE 599.0 URINARY TRACT INFECTION 02/26/2014 ALMONTE DDS, SAE 599.70 HEMATURIA UNSPECIFIED 02/26/2014 ALMONTE DDS, SAE 786.2 COUGH 02/26/2014 ALMONTE DDS, SAE V72.31 ROUTE INSPECTOR EXAM, ROUTINE 02/26/2014 ALMONTE DDS, SAE V76.2 [...] OF NASAL CAVITY AND SINUSES 05/16/2014 MADL PHILOSOPHY SPECIALIST, JHONATAN L 478.19 OTHER DISEASES OF NASAL CAVITY AND SINUSES 05/16/2014 AMELIA CURRIE DO K 478.19 OTHER DISEASES OF NASAL CAVITY AND SINUSES 05/16/2014 MADL PHILOSOPHY SPECIALIST, JHONATAN L 478.19 OTHER DISEASES OF NASAL CAVITY AND SINUSES 05/16/2014 MADL PHILOSOPHY SPECIALIST, JHONATAN L 478.19 OTHER DISEASES OF NASAL CAVITY AND SINUSES 05/16/2014 MAVERICK FUCHS ZACHARIAH R 478.19 OTHER DISEASES OF NASAL CAVITY AND SINUSES 05/16/2014 MADL PHILOSOPHY SPECIALIST, JHONATAN L 478.19 OTHER DISEASES OF NASAL CAVITY AND SINUSES 05/16/2014 MADL PHILOSOPHY SPECIALIST, JHONATAN L 478.19 OTHER DISEASES OF NASAL CAVITY AND SINUSES 05/16/2014 MADL PHILOSOPHY SPECIALIST, JHONATAN L 478.19 OTHER DISEASES OF NASAL CAVITY AND SINUSES 05/16/2014 MADL PHILOSOPHY SPECIALIST, JHONATAN L 478.19 OTHER DISEASES OF NASAL CAVITY AND SINUSES 05/16/2014 MADL PHILOSOPHY SPECIALIST, JHONATAN L 478.19 OTHER DISEASES OF NASAL CAVITY AND SINUSES 05/16/2014 MADL PHILOSOPHY SPECIALIST, JHONATAN L 478.19 OTHER DISEASES OF NASAL CAVITY AND SINUSES 05/16/2014 AMELIA CURRIE DO K 478.19 OTHER DISEASES OF NASAL CAVITY AND SINUSES 05/16/2014 MADL PHILOSOPHY SPECIALIST, JHONATAN L 478.19 OTHER DISEASES OF NASAL CAVITY AND SINUSES 05/16/2014 BHARAT MANCIA APRN S 478.19 OTHER DISEASES OF NASAL CAVITY AND SINUSES 05/16/2014 478.19 OTHER DISEASES OF NASAL CAVITY AND SINUSES 05/16/2014 MAVERICK FUCHS, ZACHARIAH R 478.19 OTHER DISEASES OF NASAL CAVITY AND SINUSES 05/16/2014 SAE ALMONTE DDS 478.19 OTHER DISEASES OF NASAL CAVITY AND SINUSES 07/22/2014 MADL PHILOSOPHY SPECIALIST, JHONATAN L V04.81 FLU SHOT 07/22/2014 MAVERICK FUCHS ZACHARIAH R V04.81 FLU SHOT 07/22/2014 MADL PHILOSOPHY SPECIALIST, JHONATAN L V04.81 FLU SHOT 07/22/2014 MADL PHILOSOPHY SPECIALIST, JHONATAN L V04.81 FLU SHOT 07/22/2014 MADL PHILOSOPHY SPECIALIST, JHONATAN L V04.81 FLU SHOT 07/22/2014 MADL PHILOSOPHY SPECIALIST, JHONATAN L V04.81 FLU SHOT 07/22/2014 MADL PHILOSOPHY SPECIALIST, JHONATAN L V04.81 FLU SHOT 07/22/2014 MADL PHILOSOPHY SPECIALIST, JHONATAN L V04.81 FLU SHOT 07/22/2014 CURRIE AMELIA SCHREIBER K V04.81 FLU SHOT 07/22/2014 MADL PHILOSOPHY SPECIALIST, JHONATAN L V04.81 FLU SHOT 07/22/2014 BHARAT [...] HUNT MD Ot 240.9 02/18/2015 MARCI NASH PHILOSOPHY SPECIALIST Ot V65.49 02/18/2015 MARCI NASH PHILOSOPHY SPECIALIST Ot V72.31 02/18/2015 MARCI NASH PHILOSOPHY SPECIALIST Ot V73.81 02/18/2015 MARCI NASH PHILOSOPHY SPECIALIST Ot V76.12 02/18/2015 MARCI NASH PHILOSOPHY SPECIALIST Ot V76.2 02/18/2015 MARCI NASH PHILOSOPHY SPECIALIST Ot V76.51 03/28/2015 ELANA CHAVIS, LATRELL Davies [...] MARILEE CHAVIS, ALLI Shirley Ot 793.11 06/25/2015 LALI HUNT MD Ot 240.9 06/25/2015 MARCI NASH PHILOSOPHY SPECIALIST Ot V65.49 06/25/2015 MARCI NASH PHILOSOPHY SPECIALIST Ot V72.31 06/25/2015 MARCI NASH PHILOSOPHY SPECIALIST Ot V73.81 06/25/2015 MARCI NASH PHILOSOPHY SPECIALIST Ot V76.12 06/25/2015 MARCI NASH PHILOSOPHY SPECIALIST Ot V76.2 06/25/2015 MARCI NASH PHILOSOPHY SPECIALIST Ot V76.51 06/25/2015 ELANA CHAVIS, LATRELL Davies [...] HUNT MD Ot 240.9 09/18/2015 MARCI NASH PHILOSOPHY SPECIALIST Ot V65.49 09/18/2015 KATLIN NASHIDI Ilda PHILOSOPHY SPECIALIST Ot V72.31 09/18/2015 CHARITY MARCI A PHILOSOPHY SPECIALIST Ot V73.81 09/18/2015 MARCI NASH PHILOSOPHY SPECIALIST Ot V76.12 09/18/2015 MARCI NASH PHILOSOPHY SPECIALIST Ot V76.2 09/18/2015 MARCI NASH PHILOSOPHY SPECIALIST Ot V76.51 09/18/2015 ELANA CHAVIS, LATRELL Davies [...] HAWKINS MD Ot 496 09/18/2015 COREY DIAL PHILOSOPHY SPECIALIST Ot S50.12XA CONTUSION OF LEFT FOREARM, INITIAL ENCOU 09/18/2015 COREY DIAL PHILOSOPHY SPECIALIST Ot W22.8XXA STRIKING AGAINST OR STRUCK BY OTHER OBJE 09/18/2015 COREY DIAL PHILOSOPHY SPECIALIST Ot Y99.8 OTHER EXTERNAL CAUSE STATUS 04/29/2016 [...] Ot 240.9 GOITER NOS 04/29/2016 MARCI NASH PHILOSOPHY SPECIALIST Ot V65.49 OTHER SPECIFIED COUNSELING 04/29/2016 MARCI NSAH PHILOSOPHY SPECIALIST Ot V72.31 ROUTINE GYNECOLOGICAL EXAMINATION 04/29/2016 MARCI NASH PHILOSOPHY SPECIALIST Ot V73.81 SPECIAL SCREENING EXAMINATION, HUMAN PAP 04/29/2016 MARCI NASH PHILOSOPHY SPECIALIST Ot V76.12 OTH SCREEN MAMMO-MALIGN NEOPLASM OF [place]RE[place] 04/29/2016 MARCI NASH PHILOSOPHY SPECIALIST Ot V76.2 SCREEN MAL NEOP-CERVIX 04/29/2016 MARCI NASH PHILOSOPHY SPECIALIST Ot V76.51 SCREEN MAL NEOP-COLON 04/29/2016 LATRELL [...] CHR AIRWAY OBSTRUCT NEC 04/29/2016 BHARAT MANCIA BATCH WEIGHER Ot Z12.31 ENCNTR SCREEN MAMMOGRAM FOR MALIGNANT NE 04/30/2016 BHARAT MANCIA BATCH WEIGHER Ot Z12.31 ENCNTR SCREEN MAMMOGRAM FOR MALIGNANT NE 05/05/2016 BHARAT MANCIA BATCH WEIGHER Ot Z12.31 ENCNTR SCREEN MAMMOGRAM FOR MALIGNANT NE 06/04/2016 BHARAT MANCIA BATCH WEIGHER Ot Z12.31 ENCNTR SCREEN MAMMOGRAM FOR MALIGNANT NE 06/29/2016 BHARAT MANCIA BATCH WEIGHER Ot Z12.31 ENCNTR SCREEN MAMMOGRAM FOR MALIGNANT [...] Ot 240.9 GOITER NOS 11/30/2016 MARCI NASH PHILOSOPHY SPECIALIST Ot V65.49 OTHER SPECIFIED COUNSELING 11/30/2016 MARCI NASH PHILOSOPHY SPECIALIST Ot V72.31 ROUTINE GYNECOLOGICAL EXAMINATION 11/30/2016 MARCI NASH PHILOSOPHY SPECIALIST Ot V73.81 SPECIAL SCREENING EXAMINATION, HUMAN PAP 11/30/2016 MARCI NASH PHILOSOPHY SPECIALIST Ot V76.12 OTH SCREEN MAMMO-MALIGN NEOPLASM OF [place] 11/30/2016 MARCI NASH PHILOSOPHY SPECIALIST Ot V76.2 SCREEN MAL NEOP-CERVIX 11/30/2016 MARCI NASH PHILOSOPHY SPECIALIST Ot V76.51 SCREEN MAL NEOP-COLON 11/30/2016 ELANA [...] MD Ot I25.10 ATHSCL HEART DISEASE OF [place] CORONARY 11/30/2016 DENNYS LEWIS MD, Ot J06.9 ACUTE UPPER RESPIRATORY INFECTION, UNSPE 11/30/2016 DENNYS LEWIS MD, Ot J44.9 CHRONIC OBSTRUCTIVE PULMONARY DISEASE, U 11/30/2016 DENNYS LEWIS MD, Ot R05 COUGH 11/30/2016 DENNYS LEWIS MD Ot Z79.01 DETENTION (CURRENT) USE OF ANTICOAGULANT 11/30/2016 DENNYS LEWIS MD Ot Z79.82 DETENTION (CURRENT) USE OF ASPIRIN 11/30/2016 DENNYS LEWIS [...] Ot 240.9 GOITER NOS 11/30/2016 MARCI NASH PHILOSOPHY SPECIALIST Ot V65.49 OTHER SPECIFIED COUNSELING 11/30/2016 MARCI NASH PHILOSOPHY SPECIALIST Ot V72.31 ROUTINE GYNECOLOGICAL EXAMINATION 11/30/2016 MARCI NASH PHILOSOPHY SPECIALIST Ot V73.81 SPECIAL SCREENING EXAMINATION, HUMAN PAP 11/30/2016 MARCI NASH PHILOSOPHY SPECIALIST Ot V76.12 OTH SCREEN MAMMO-MALIGN NEOPLASM OF [place] 11/30/2016 MARCI NASH PHILOSOPHY SPECIALIST Ot V76.2 SCREEN MAL NEOP-CERVIX 11/30/2016 MARCI NASH PHILOSOPHY SPECIALIST Ot V76.51 SCREEN MAL NEOP-COLON 11/30/2016 ELANA [...] CHR AIRWAY OBSTRUCT NEC 11/30/2016 BHARAT MANCIA [facility] Ot Z12.31 ENCNTR SCREEN MAMMOGRAM FOR MALIGNANT NE 12/02/2016 DENNYS LEWIS MD Ot I25.10 ATHSCL HEART DISEASE OF [place] CORONARY 12/02/2016 DENNYS LEWIS MD Ot J06.9 ACUTE UPPER RESPIRATORY INFECTION, UNSPE 12/02/2016 DENNYS LEWIS MD Ot J44.9 CHRONIC OBSTRUCTIVE PULMONARY DISEASE, U 12/02/2016 DENNYS LEWIS MD Ot R05 COUGH 12/02/2016 DENNYS LEWIS MD Ot Z79.01 DETENTION (CURRENT) USE OF ANTICOAGULANT 12/02/2016 DENNYS LEWIS MD Ot Z79.82 DETENTION (CURRENT) USE OF ASPIRIN 12/02/2016 DENNYS LEWIS MD Ot Z95.1 PRESENCE OF AORTOCORONARY BYPASS GRAFT 12/02/2016 DENNYS LEWIS MD Ot Z95.2 PRESENCE OF PROSTHETIC HEART VALVE 12/02/2016 DENNYS LEWIS MD Ot I25.10 ATHSCL HEART DISEASE OF [place] CORONARY 12/02/2016 DENNYS LEWIS MD Ot J06.9 ACUTE UPPER RESPIRATORY INFECTION, UNSPE 12/02/2016 DENNYS LEWIS MD, Ot J44.9 CHRONIC OBSTRUCTIVE PULMONARY DISEASE, U 12/02/2016 DENNYS LEWIS MD Ot R05 COUGH 12/02/2016 DENNYS LEWIS MD Ot Z79.01 BAKER HELPER (CURRENT) USE OF ANTICOAGULANT 12/02/2016 DENNYS LEWIS MD Ot Z79.82 DETENTION (CURRENT) USE OF ASPIRIN 12/02/2016 DENNYS LEWIS [...] STRUCTU 01/16/2017 MIHAI ROBERTS MD Ot Z79.01 BAKER HELPER (CURRENT) USE OF ANTICOAGULANT 01/16/2017 MIHAI ROBERTS MD Ot Z79.82 DETENTION (CURRENT) USE OF ASPIRIN 01/16/2017 MIHAI ROBERTS MD Ot Z79.899 OTHER DETENTION (CURRENT) DRUG THERAPY 01/16/2017 MIHAI ROBERTS MD [...] STRUCTU 01/17/2017 MIHAI ROBERTS MD Ot Z79.01 DETENTION (CURRENT) USE OF ANTICOAGULANT 01/17/2017 MIHAI ROBERTS MD Ot Z79.82 DETENTION (CURRENT) USE OF ASPIRIN 01/17/2017 MIHAI ROBERTS MD Ot Z79.899 OTHER BAKER HELPER (CURRENT) DRUG THERAPY 01/17/2017 MIHAI ROBERTS MD Ot Z95.1 PRESENCE OF AORTOCORONARY BYPASS GRAFT 01/17/2017 MIHAI ROBERTS MD Ot Z95.2 PRESENCE OF PROSTHETIC HEART VALVE 02/07/2017 LATRELL HAWKINS MD Ot I25.10 ATHSCL HEART DISEASE OF [place] CORONARY 02/17/2017 LATRELL HAWKINS MD Ot I25.10 ATHSCL HEART DISEASE OF [place] CORONARY 03/07/2017 LATRELL HAWKINS MD Ot I25.10 ATHSCL HEART DISEASE OF [place] CORONARY 03/08/2017 LATRELL HAWKINS MD Ot I25.10 ATHSCL HEART DISEASE OF [place] CORONARY 03/18/2017 LATRELL HAWKINS MD Ot E04.1 [...] MD, Ot I25.10 ATHSCL HEART DISEASE OF [place] CORONARY 06/20/2017 EVELINE PENG MD Ot K02.9 DENTAL CARIES, UNSPECIFIED 06/20/2017 EVELINE PENG MD Ot K08.89 OTHER SPECIFIED DISORDERS OF TEETH AND S 06/20/2017 EVELINE PENG MD Ot K21.9 GASTRO-ESOPHAGEAL REFLUX DISEASE WITHOUT 06/20/2017 EVELINE PENG MD Ot M06.9 RHEUMATOID ARTHRITIS, UNSPECIFIED 06/20/2017 EVELINE PENG MD Ot Z79.01 BAKER HELPER (CURRENT) USE OF ANTICOAGULANT 06/20/2017 EVELINE PENG MD Ot Z79.82 BAKER HELPER (CURRENT) USE OF ASPIRIN 06/20/2017 EVELINE PENG [...] MD Ot I25.10 ATHSCL HEART DISEASE OF [place] CORONARY 06/22/2017 EVELINE PENG MD Ot K02.9 DENTAL CARIES, UNSPECIFIED 06/22/2017 EVELINE PENG MD Ot K08.89 OTHER SPECIFIED DISORDERS OF TEETH AND S 06/22/2017 EVELINE PENG MD Ot K21.9 GASTRO-ESOPHAGEAL REFLUX DISEASE WITHOUT 06/22/2017 VEELINE PENG MD Ot M06.9 RHEUMATOID ARTHRITIS, UNSPECIFIED 06/22/2017 EVELINE PENG MD Ot Z87.19 PERSONAL HISTORY OF OTHER DISEASES OF 06/22/2017 EVELINE PENG MD Ot Z90.49 ACQUIRED ABSENCE OF OTHER SPECIFIED PART 06/22/2017 VEELINE PENG MD Ot Z95.1 PRESENCE OF AORTOCORONARY BYPASS GRAFT 06/22/2017 EVELINE PENG MD Ot Z95.2 PRESENCE OF PROSTHETIC HEART VALVE 06/22/2017 EVELINE PENG MD Ot Z98.51 TUBAL LIGATION STATUS 06/22/2017 EVELINE PENG MD Ot I10 ESSENTIAL (PRIMARY) HYPERTENSION 06/22/2017 EVELINE PENG MD Ot I25.10 ATHSCL HEART DISEASE OF [place] CORONARY 06/22/2017 EVELINE PENG MD Ot K02.9 [...] MD, Ot I25.10 ATHSCL HEART DISEASE OF [place] CORONARY 06/22/2017 EVELINE PENG MD Ot K02.9 DENTAL CARIES, UNSPECIFIED 06/22/2017 EVELINE PENG MD Ot K08.89 OTHER SPECIFIED DISORDERS OF TEETH AND S 06/22/2017 EVELINE PENG MD Ot K21.9 GASTRO-ESOPHAGEAL REFLUX DISEASE WITHOUT 06/22/2017 EVELINE PENG MD Ot M06.9 RHEUMATOID ARTHRITIS, UNSPECIFIED 06/22/2017 EVELINE PENG MD Ot Z79.01 BAKER HELPER (CURRENT) USE OF ANTICOAGULANT 06/22/2017 EVELINE PENG MD Ot Z79.82 DETENTION (CURRENT) USE OF ASPIRIN 06/22/2017 EVELINE PENG [...] MD Ot I25.10 ATHSCL HEART DISEASE OF [place] CORONARY 06/26/2017 EVELINE PENG MD Ot K02.9 DENTAL CARIES, UNSPECIFIED 06/26/2017 EVELINE PENG MD Ot K08.89 OTHER SPECIFIED DISORDERS OF TEETH AND S 06/26/2017 EVELINE PENG MD Ot K21.9 GASTRO-ESOPHAGEAL REFLUX DISEASE WITHOUT 06/26/2017 EVELINE PENG MD Ot M06.9 RHEUMATOID ARTHRITIS, UNSPECIFIED 06/26/2017 EVELINE PENG MD Ot Z79.01 DETENTION (CURRENT) USE OF ANTICOAGULANT 06/26/2017 EVELINE PENG MD Ot Z79.82 BAKER HELPER (CURRENT) USE OF ASPIRIN 06/26/2017 EVELINE PENG [...] APRN Ot I25.10 ATHSCL HEART DISEASE OF [place] CORONARY 07/29/2017 COREY DIAL APRN Ot J44.9 CHRONIC OBSTRUCTIVE PULMONARY DISEASE, U 07/29/2017 COREY DIAL APRN Ot K02.9 DENTAL CARIES, UNSPECIFIED 07/29/2017 COREY DIAL APRN Ot K21.9 GASTRO-ESOPHAGEAL REFLUX DISEASE WITHOUT 07/29/2017 COREY DIAL APRN Ot M06.9 RHEUMATOID ARTHRITIS, UNSPECIFIED 07/29/2017 COREY DIAL APRN Ot R68.84 JAW PAIN 07/29/2017 COREY DIAL APRN Ot Z79.01 BAKER HELPER (CURRENT) USE OF ANTICOAGULANT 07/29/2017 COREY DIAL APRN Ot Z79.82 BAKER HELPER (CURRENT) USE OF ASPIRIN 07/29/2017 COREY DIAL APRN Ot Z87.440 PERSONAL HISTORY OF URINARY (TRACT) INFE 07/29/2017 COREY DIAL APRN Ot Z87.891 PERSONAL HISTORY OF NICOTINE DEPENDENCE 07/29/2017 COREY DIAL APRN Ot Z90.49 ACQUIRED ABSENCE OF OTHER SPECIFIED PART 07/29/2017 COREY DIAL APRN Ot Z95.1 PRESENCE OF AORTOCORONARY BYPASS GRAFT 07/29/2017 COREY DIAL APRN Ot Z95.2 PRESENCE OF PROSTHETIC HEART VALVE 07/29/2017 COREY DAIL APRN Ot Z98.51 TUBAL LIGATION STATUS 01/22/2018 EVELINE PEGN MD Ot I10 ESSENTIAL (PRIMARY) HYPERTENSION 01/22/2018 EVELINE PENG MD Ot I25.10 ATHSCL HEART DISEASE OF [place] CORONARY 01/22/2018 EVELINE PENG MD, Ot J44.9 CHRONIC OBSTRUCTIVE PULMONARY DISEASE, U 01/22/2018 EVELINE PENG MD, Ot K21.9 GASTRO-ESOPHAGEAL REFLUX DISEASE WITHOUT 01/22/2018 EVELINE PENG MD, Ot M06.9 RHEUMATOID ARTHRITIS, UNSPECIFIED 01/22/2018 EVELINE PENG MD Ot N39.0 URINARY TRACT INFECTION, SITE NOT SPECIF 01/22/2018 EVELINE PENG MD, Ot R31.9 HEMATURIA, UNSPECIFIED 01/22/2018 EVELINE PENG MD Ot Z79.01 DETENTION (CURRENT) USE OF ANTICOAGULANT 01/22/2018 EVELINE PENG MD Ot Z79.82 BAKER HELPER (CURRENT) USE OF ASPIRIN 01/22/2018 EVELINE PENG MD Ot Z87.891 PERSONAL HISTORY OF NICOTINE DEPENDENCE 01/22/2018 EVELINE PENG MD Ot Z88.0 ALLERGY STATUS TO PENICILLIN 01/22/2018 EVELINE PENG MD Ot Z88.1 ALLERGY STATUS TO OTHER ANTIBIOTIC AGENT 01/22/2018 EVELINE PENG MD Ot Z88.6 ALLERGY STATUS TO ANALGESIC AGENT STATUS 01/22/2018 EVELINE PENG MD Ot Z91.041 RADIOGRAPHIC DYE ALLERGY STATUS 01/22/2018 EVELINE PENG MD Ot Z95.2 PRESENCE OF PROSTHETIC HEART VALVE 01/22/2018 EVELINE PENG MD Ot Z95.5 PRESENCE OF CORONARY ANGIOPLASTY IMPLANT 01/22/2018 EVELINE PENG MD Ot Z98.51 TUBAL LIGATION STATUS 01/25/2018 Ot 553.3 DIAPHRAGMATIC HERNIA 01/25/2018 Ot 786.05 SHORTNESS OF BREATH 01/25/2018 Ot 786.2 COUGH 01/25/2018 Ot 793.11 SOLITARY PULMONARY NODULE 01/25/2018 Ot 396.3 MITRAL/ AORTIC MARGARITO INSUFF 01/25/2018 Ot 397.0 TRICUSPID VALVE DISEASE 01/25/2018 Ot 414.00 CORON ATHEROSCLER NOS TYPE VESSEL, NATIV 01/25/2018 Ot 429.3 CARDIOMEGALY 01/25/2018 Ot 786.09 RESPIRATORY ABNORM NEC 01/25/2018 Ot V43.3 HEART VALVE REPLAC NEC 01/25/2018 Ot V76.12 OT SCREEN MAMMO-MALIGN NEOPLASM OF [place] 01/25/2018 ALLI HUNT MD Ot 793.11 SOLITARY PULMONARY NODULE 01/25/2018 ALLI HUNT MD Ot 240.9 GOITER NOS 01/25/2018 MARCI NASH PHILOSOPHY SPECIALIST Ot V65.49 OTHER SPECIFIED COUNSELING 01/25/2018 MARCI NASH PHILOSOPHY SPECIALIST Ot V72.31 ROUTINE GYNECOLOGICAL EXAMINATION 01/25/2018 CHARITYMARCI PHILOSOPHY SPECIALIST Ot V73.81 SPECIAL SCREENING EXAMINATION, HUMAN PAP 01/25/2018 CHARITYMARCI PHILOSOPHY SPECIALIST Ot V76.12 OTH SCREEN MAMMO-MALIGN NEOPLASM OF [place] 01/25/2018 CHARITYKATLINMARCI Ilda PHILOSOPHY SPECIALIST Ot V76.2 SCREEN MAL NEOP-CERVIX 01/25/2018 CHARITYKATLINMARCI A PHILOSOPHY SPECIALIST Ot V76.51 SCREEN MAL NEOP-COLON 01/25/2018 LATRELL HAWKINS MD Ot 401.9 HYPERTENSION NOS 01/25/2018 LATRELL HAWKINS MD Ot 414.9 CHR ISCHEMIC HRT DIS NOS 01/25/2018 LATRELL HAWKINS MD Ot 416.8 CHR PULMON HEART DIS NEC 01/25/2018 LATRELL HAWKINS MD Ot 424.1 AORTIC VALVE DISORDER 01/25/2018 LATRELL HAWKINS MD Ot 429.3 CARDIOMEGALY 01/25/2018 LATRELL HAWKINS MD Ot 785.1 PALPITATIONS 01/25/2018 LATRELL HAWKINS MD Ot 401.9 HYPERTENSION NOS 01/25/2018 LATRELL HAWKINS MD Ot 414.00 CORON ATHEROSCLER NOS TYPE VESSEL, NATIV 01/25/2018 LATRELL HAWKINS MD Ot 424.0 MITRAL VALVE DISORDER 01/25/2018 LTARELL HAWKINS MD Ot 496 CHR AIRWAY OBSTRUCT NEC 01/25/2018 BHARAT MANCIA Ot Z12.31 ENCNTR SCREEN MAMMOGRAM FOR MALIGNANT NE 01/25/2018 LATRELL HAWKINS MD Ot I25.10 ATHSCL HEART DISEASE OF [place] CORONARY 01/25/2018 LATRELL HAWKINS MD Ot E04.1 NONTOXIC SINGLE THYROID NODULE 01/26/2018 BHARAT MANCIA Ot Z12.31 ENCNTR SCREEN MAMMOGRAM FOR MALIGNANT NE Procedures Code [place] [address] INR (IN HOUSE) 09/05/2012 56848 INR (IN HOUSE) 10/18/2012 Cardiolog Latrell Hawkins 10/25/2012 54759 XRAY CHEST 2 VIEW 12/01/[address] CHEST W/O DYE 12/01/2012 99084 INR (IN HOUSE) 12/01/2012 26002 XRAY THORACIC SPINE 2 VIEWS 01/10/2013 23429 XRAY LUMBAR SPINE 2 OR 3 VIEWS 01/10/2013 74222 ROUTINE VENIPUNCTURE 01/11/2013 57777 INR (IN HOUSE) 01/11/2013 62651 A1C (IN-HOUSE) 01/11/2013 36833 CMP 01/11/2013 61221 LIPID PANEL 01/11/2013 64584 CBC 01/11/2013 [id number] GFR CALC (RESULT ONLY) 01/11/2013 15522 MAMMOGRAM, SCREENING 01/18/2013 J1040 DEPO MEDROL 80 MG INJ 02/21/2013 91358 THERAPUTIC INJ SQ/IM 02/21/2013 12972 UA W/ CULTURE IF INDICATED 02/21/2013 00036 INR (IN HOUSE) 03/09/2013 86105 ROUTINE VENIPUNCTURE 04/17/2013 42642 CMP 04/17/2013 [id number] GFR CALC (RESULT ONLY) 04/17/[address] CHEST W/O DYE 04/20/2013 26509 UA W/ CULTURE IF INDICATED 06/01/2013 30799 CULTURE URINE 06/03/2013 09600 ROUTINE VENIPUNCTURE 10/12/2013 44866 OXIMETRY 10/12/2013 22343 CMP 10/12/2013 [id number] GFR CALC (RESULT ONLY) 10/12/2013 12947 ROUTINE VENIPUNCTURE 02/06/2014 31688 INR (IN HOUSE) 02/06/2014 46636 CMP 02/06/2014 13686 LIPID PANEL 02/06/2014 52451 CPK 02/06/2014 00739 INR (IN HOUSE) 02/19/2014 69628 ROUTINE VENIPUNCTURE 02/26/2014 06438 INR (IN HOUSE) 02/26/2014 05017 UA LONG DIP 02/26/2014 33725 INR (IN HOUSE) 02/26/2014 88035 XRAY CHEST 2 VIEW 02/26/2014 87129 CBC 02/26/2014 23226 CULTURE URINE 02/26/2014 61873 MAMMOGRAM, SCREENING 02/27/2014 42773 PAP SMEAR 02/27/2014 Q0091 PAP SMEAR OBTAIN SMEAR 02/27/2014 36099 INR (IN HOUSE) 05/02/2014 17511 INR (IN HOUSE) 05/20/2014 08664 INR (IN HOUSE) 05/22/2014 65823 INR (IN HOUSE) 05/24/2014 34400 CAPILLARY BLOOD DRAW 05/28/2014 42890 INR (IN HOUSE) 05/28/2014 40595 INR (IN HOUSE) 06/21/2014 27594 INR (IN HOUSE) 06/28/2014 69981 INR (IN HOUSE) 07/01/2014 21699 INR (IN HOUSE) 07/09/2014 57165 INR (IN HOUSE) 07/22/2014 87757 INR (IN HOUSE) 08/30/2014 78447 INR (IN HOUSE) 09/02/2014 21187 INR (IN HOUSE) 09/20/2014 88371 INR (IN HOUSE) 09/30/2014 82069 INR (IN HOUSE) 10/07/2014 71474 INR (IN HOUSE) 11/01/2014 Results Test Result Range Influenza virus A and B antigen detection - 11/30/16 11:34 FLU RESULT NEGATIVE FOR INFLUENZA A AND B ANTIGENS BY [facility] Complete blood count (CBC) with automated white [...] 08/31/17 10:11 CULTURE, URINE, ROUTINE SEE NOTE NR CULTURE, URINE - 12/28/17 12:14 CULTURE, URINE, ROUTINE SEE NOTE NR CMP - 01/12/18 09:47 GLUCOSE 89 mg/dL 65-99 UREA NITROGEN (BUN) 17 mg/dL 7-25 CREATININE 0.75 mg/dL 0.50-0.99 eGFR NON-AFR. [place] 85 mL/min/1.73m2 > OR=60 eGFR 99 mL/min/1.73m2 > OR=60 BUN/CREATININE RATIO NOT APPLICABLE (calc) 6-22 SODIUM 141 mmol/L 135-146 POTASSIUM 4.4 mmol/L 3.5-5.3 CHLORIDE 107 mmol/L 98-110 CARBON DIOXIDE 26 mmol/L 20-31 CALCIUM 9.4 mg/dL 8.6-10.4 PROTEIN, TOTAL 7.0 g/dL 6.1-8.1 ALBUMIN 4.4 g/dL 3.6-5.1 GLOBULIN 2.6 g/dL (calc) 1.9-3.7 ALBUMIN/GLOBULIN RATIO 1.7 (calc) 1.0-2.5 BILIRUBIN, TOTAL 0.4 mg/dL 0.2-1.2 ALKALINE PHOSPHATASE 92 U/L 33-130 AST 21 U/L 10-35 ALT 21 U/L 6-29 Complete urinalysis with reflex to culture - 01/22/18 10:57 Urine color determination RED NRG Urine clarity determination BLOODY NRG Urine pH measurement by test strip 6.5 5-9 Specific gravity of urine by test strip 1.020 1.016- 1.022 Urine protein assay by test strip, semi-quantitative 4+ NEGATIVE Urine glucose detection by automated test strip NEGATIVE NEGATIVE Erythrocytes detection in urine sediment by light microscopy 5+ NEGATIVE Urine ketones detection by automated test strip 1+ NEGATIVE Urine nitrite detection by test strip NEGATIVE NEGATIVE Urine total bilirubin detection by test strip NEGATIVE NEGATIVE Urine urobilinogen measurement by automated test strip (mass/volume) NORMAL NORMAL Urine leukocyte esterase detection by dipstick 1+ NEGATIVE Automated urine sediment erythrocyte count by microscopy (number/high power field) TNTC NRG Automated urine sediment leukocyte count by microscopy (number/high power field ) > [HPF] NRG Bacteria detection in urine sediment by light microscopy LARGE NRG Crystals detection in urine sediment by light microscopy NONE NRG Casts detection in urine sediment by light microscopy NONE NRG Mucus detection in urine sediment by light microscopy LARGE NRG Complete urinalysis with reflex to culture YES NRG Bacterial urine culture - 01/22/18 10:57 Bacterial urine culture [id number] NRG COLONY COUNT >100,000/ML NRG FTX;REPORTABLE SENSITIVITY REPORTED 01/24/18 9:05 NRG FREE TEXT ENTRY 2 PLUS, NRG FREE TEXT ENTRY 3 MIXED GRAM POSITIVES <10,000/ML NR Bacterial susceptibility panel - 01/22/18 10:57 Gentamicin susceptibility test by minimum inhibitory concentration < = NRG Trimethoprim/sulfamethoxazole susceptibility test by minimum inhibitoryconcentration S NRG Ampicillin susceptibility test by minimum inhibitory concentration 4 NRG Tobramycin susceptibility test by minimum inhibitory concentration < = NRG Cefazolin susceptibility test by minimum inhibitory concentration < = NRG Ceftriaxone susceptibility test by minimum inhibitory concentration <= NRG Ampicillin/sulbactam susceptibility test by minimum inhibitory concentration <= NRG Piperacillin/tazobactam susceptibility test by minimum inhibitory concentration S NRG Ciprofloxacin susceptibility test by minimum inhibitory concentration <= NRG Meropenem susceptibility test by minimum inhibitory concentration < = NRG Nitrofurantoin susceptibility test by minimum inhibitory concentration <= NRG Aztreonam susceptibility test by minimum inhibitory concentration < = NRG Extended spectrum beta lactamase (ESBL) producing bacteria susceptibility test by minimum inhibitory concentration - NR PT panel in platelet poor plasma by coagulation assay - 01/22/18 11:05 Prothrombin time (PT) in platelet poor plasma by coagulation assay 23.7 s 12.2-14.7 INR in platelet poor plasma or blood by coagulation assay 2.1 0.8-1.4 Complete blood count (CBC) with automated white blood cell (WBC) differential - 01/22/18 11:05 Blood leukocytes automated count (number/volume) 10.4 10*3/uL 4.3-11.0 Blood erythrocytes automated count (number/volume) 4.41 10*6/uL 4.35-5.85 Venous blood hemoglobin measurement (mass/volume) 12.6 g/dL 11.5-16.0 Blood hematocrit (volume fraction) 38 % 35-52 Automated erythrocyte mean corpuscular volume 86 [foz_us] 80-99 Automated erythrocyte mean corpuscular hemoglobin (mass per erythrocyte) 29 pg 25-34 Automated erythrocyte mean corpuscular hemoglobin concentration measurement ( mass/volume) 33 g/dL 32-36 Automated erythrocyte distribution width ratio 14.4 % 10.0-14.5 Automated blood platelet count (count/volume) 273 10*3/uL 130-400 Automated blood platelet mean volume measurement 11.1 [foz_us] 7.4-10.4 Automated blood neutrophils/100 leukocytes 65 % 42-75 Automated blood lymphocytes/100 leukocytes 21 % 12-44 Blood monocytes/100 leukocytes 7 % 0-12 Automated blood eosinophils/100 leukocytes 6 % 0-10 Automated blood basophils/100 leukocytes 1 % 0-10 Blood neutrophils automated count (number/volume) 6.7 10*3 1.8-7.8 Blood lymphocytes automated count (number/volume) 2.2 10*3 1.0-4.0 Blood monocytes automated count (number/volume) 0.7 10*3 0.0-1.0 Automated eosinophil count 0.7 10*3/uL 0.0-0.3 Automated blood basophil count (count/volume) 0.1 10*3/uL 0.0-0.1 Encounters ACCT No. Visit Date/Time Discharge Status Pt. Type Provider Facility Loc./Unit Complaint [id number] 02/05/2015 08:29:00 02/05/2015 23:59:59 [facility] Outpatient SAE ALMONTE DDS [id number] 01/28/2015 09:08:00 01/28/2015 23:59:59 [facility] Out[facility], ZACHARIAH R [id number] 01/27/2015 05:12:00 01/27/2015 23:59:59 [facility] Outpatient [id number] 01/06/2015 09:52:00 01/06/2015 23:59:59 [facility] Outpatient [facility] [id number] 11/01/2014 10:30:00 11/01/2014 23:59:59 [facility] Outpatient [facility] SPECIALIST, JHONATAN L [id number] 10/07/2014 09:23:00 10/07/2014 23:59:59 CLS Outpatient MADL PHILOSOPHY SPECIALIST, JHONATAN L [id number] 09/30/2014 09:44:00 09/30/2014 23:59:59 CLS Outpatient MADL PHILOSOPHY SPECIALIST, JHONATAN L [id number] 09/30/2014 09:44:00 09/30/2014 23:59:59 CLS Outpatient ROSEY SCHREIBER AMELIA Lacho [id number] 09/20/2014 09:34:00 09/20/2014 23:59:59 CLS Outpatient MADL PHILOSOPHY SPECIALIST, JHONATAN L [id number] 09/02/2014 09:53:00 09/02/2014 23:59:59 CLS Outpatient MADL PHILOSOPHY SPECIALIST, JHONATAN L [id number] 08/30/2014 09:56:00 08/30/2014 23:59:59 CLS Outpatient MADL PHILOSOPHY SPECIALIST, JHONATAN L [id number] 08/30/2014 09:56:00 08/30/2014 23:59:59 CLS Outpatient MADL PHILOSOPHY SPECIALIST, JHONATAN L [id number] 07/31/2014 09:55:00 07/31/2014 23:59:59 CLS Outpatient MAVERICK PHILOSOPHY SPECIALIST, ZACHARIAH R [id number] 07/22/2014 11:05:00 07/22/2014 23:59:59 CLS Outpatient MADL PHILOSOPHY SPECIALIST, JHONATAN L [id number] 07/09/2014 09:33:00 07/09/2014 23:59:59 CLS Outpatient MADL PHILOSOPHY SPECIALIST, JHONATAN L [id number] 07/01/2014 12:29:00 07/01/2014 23:59:59 CLS Outpatient MADL PHILOSOPHY SPECIALIST, JHONATAN L [id number] 06/28/2014 10:34:00 06/28/2014 23:59:59 CLS Outpatient MADL PHILOSOPHY SPECIALISTJHONATAN [id number] 06/21/2014 09:52:00 06/21/2014 23:59:59 CLS Outpatient MADL PHILOSOPHY SPECIALISTJHONATAN L [id number] 06/21/2014 09:52:00 06/21/2014 23:59:59 CLS Outpatient CURRIE DOAMELIA [id number] 05/28/2014 09:34:00 05/28/2014 23:59:59 CLS Outpatient MADL PHILOSOPHY SPECIALISTJHONATAN L [id number] 05/24/2014 11:46:00 05/24/2014 23:59:59 CLS Outpatient MADL PHILOSOPHY SPECIALISTJHONATAN L [id number] 05/22/2014 13:24:00 05/22/2014 23:59:59 CLS Outpatient CURRIE DO AMELIA Monk [id number] 05/22/2014 13:24:00 05/22/2014 23:59:59 CLS Outpatient MADL PHILOSOPHY SPECIALISTJHONATAN L [id number] 05/20/2014 08:38:00 05/20/2014 23:59:59 CLS Outpatient CURRIE DO, AMELIA K [id number] 05/02/2014 13:08:00 05/02/2014 23:59:59 CLS Outpatient CURRIE DO, AMELIA Monk [id number] 04/09/2014 06:41:00 04/09/2014 23:59:59 CLS Outpatient [id number] 03/22/2014 10:07:00 03/22/2014 23:59:59 CLS Outpatient MADL PHILOSOPHY SPECIALISTJHONATAN L [id number] 02/26/2014 10:03:00 02/26/2014 23:59:59 CLS Outpatient CURRIE DO, AMELIA Lacho [id number] 02/26/2014 10:03:00 02/26/2014 23:59:59 CLS Outpatient CURRIE DO, AMELIA K [id number] 02/26/2014 08:44:00 02/26/2014 23:59:59 CLS Outpatient CHARITY PHILOSOPHY SPECIALISTMARCI A [id number] 02/19/2014 08:39:00 02/19/2014 23:59:59 CLS Outpatient CURRIE DO, AMELIA K [id number] 02/06/2014 08:49:00 02/06/2014 23:59:59 CLS Outpatient AMELIA CURRIE DO [id number] 01/22/2014 08:32:00 01/22/2014 23:59:59 CLS Outpatient AMELIA CURRIE DO [id number] 12/06/2013 10:19:00 12/06/2013 23:59:59 CLS Outpatient ALLI HUNT MD [id number] 10/12/2013 09:23:00 10/12/2013 23:59:59 CLS Outpatient MAGDALENA EUCEDA MD [id number] 10/12/2013 09:23:00 10/12/2013 23:59:59 CLS Outpatient MAGDALENA EUCEDA MD [id number] 10/02/2013 14:34:00 10/02/2013 23:59:59 CLS Outpatient FELIBERTO GARCIA APRN [id number] 07/02/2013 13:38:00 07/02/2013 23:59:59 CLS Outpatient [id number] 01/16/2013 11:02:00 01/16/2013 23:59:59 CLS Outpatient [id number] 11/30/2012 09:14:00 11/30/2012 23:59:59 CLS Outpatient MAGDALENA EUCEDA MD [id number] 11/20/2012 11:53:00 11/20/2012 23:59:59 CLS Outpatient [id number] 10/18/2012 09:51:00 10/18/2012 23:59:59 CLS Outpatient MAGDALENA EUCEDA MD [id number] 10/18/2012 09:51:00 10/18/2012 23:59:59 CLS Outpatient MAGDALENA EUCEDA MD [id number] 09/14/2012 09:40:00 09/14/2012 23:59:59 CLS Outpatient MAGDALENA EUCEDA MD [id number] 07/12/2012 08:30:00 07/12/2012 23:59:59 CLS Outpatient MAGDALENA EUCEDA MD [id number] 04/17/2013 09:37:00 Document Registration [id number] 04/17/2013 09:37:00 Document Registration [id number] 03/09/2013 08:23:00 Document Registration [id number] 03/09/2013 08:23:00 Document Registration [id number] 02/21/2013 10:38:00 Document Registration [id number] 01/10/2013 09:31:00 Document Registration [id number] 01/25/2018 13:04:00 01/25/2018 23:59:59 CLS Preadmit BHARAT MANCIA Via [facility] RAD SCREENING [id number] 01/22/2018 10:43:00 01/22/2018 12:12:00 DIS Emergency EVELINE PENG MD Via [facility] ER BLOOD IN URINE [id number] 01/10/2018 11:25:00 01/10/2018 23:59:59 CLS Preadmit MARY GRACE ORTEGA Via [facility] CARD I25.10 CAD [id number] 07/29/2017 20:36:00 07/29/2017 21:30:00 DIS Emergency COREY DIAL APRN [facility] ER DENTAL PAIN [id number] 06/20/2017 13:33:00 06/20/2017 14:25:00 DIS Emergency EVELINE PENG MD [facility] ER TOOTH ACHE [id number] 03/11/2017 09:20:00 03/11/2017 23:59:59 CLS Outpatient LATRELL HAWKINS MD [facility] RAD E04.1 [id number] 02/11/2017 09:45:00 02/11/2017 23:59:59 CLS Outpatient LATRELL HAWKINS MD [facility] CARD I25.10 [id number] 02/09/2017 13:30:00 02/09/2017 23:59:59 CLS Preadmit LATRELL HAWKINS MD Via [facility] CARD I25.10 [id number] 01/16/2017 09:06:00 01/16/2017 10:05:00 DIS Emergency ARMANDO CHAVIS, MIHAI Aiken Via [facility] ER L SIDE DENTAL PAIN [id number] 11/30/2016 11:25:00 11/30/2016 13:14:00 DIS Emergency DENNYS LEWIS MD [facility] ER COUGH/RIB PAIN WILD [id number] 04/29/2016 12:01:00 04/29/2016 23:59:59 CLS Outpatient BHARAT MANCIA [facility] RAD SCREENING [id number] 09/18/2015 21:24:00 09/18/2015 22:11:00 DIS Emergency COREY DIAL PHILOSOPHY SPECIALIST [facility] ER L ARM PAIN [id number] 06/25/2015 10:53:00 06/25/2015 23:59:59 CLS Outpatient LATRELL HAWKINS MD [facility] CARD CAD,COPD [id number] 03/26/2015 08:00:00 03/26/2015 23:59:59 CLS Preadmit LATRELL HAWKINS MD Via [facility] CAD,HTN,PALPITATIONS [id number] 02/27/2015 09:26:00 02/27/2015 23:59:59 CLS Outpatient LATRELL HAWKINS MD [facility] CARD CAD,HTN,PALPITATIONS [id number] 05/14/2014 17:58:00 05/14/2014 20:04:00 DIS Emergency OG FERNANDO DO [facility] ER BACK PAIN; CHEST PAIN [id number] 03/13/2014 10:07:00 03/13/2014 23:59:59 CLS Outpatient MARCI NASH PHILOSOPHY SPECIALIST [facility] RAD ROUTINE [id number] 01/22/2014 15:12:00 01/22/2014 18:23:00 DIS Emergency COREY DIAL PHILOSOPHY SPECIALIST Via [facility] ER L ARM PAIN [id number] 12/12/2013 10:10:00 12/12/2013 23:59:59 CLS Outpatient ALLI HUNT MD [facility] RAD LESION RT THY [id number] 11/08/2013 14:59:00 11/08/2013 23:59:59 CLS Outpatient [id number] 05/01/2013 12:57:00 05/01/2013 23:59:59 CLS Outpatient ALLI HUNT MD [facility] RAD MULTIPLE PULM NODULES ,FOLLOW-UP [id number] 02/18/2015 12:58:00 Document Registration [id number] 02/18/2015 12:58:00 Document Registration [id number] 02/18/2015 12:58:00 Document Registration [id number] 02/18/2015 12:58:00 Document Registration [id number] 02/18/2015 12:57:00 Document Registration [id number] 02/18/2015 12:57:00 Document Registration [id number] 02/18/2015 12:57:00 Document Registration [id number] 02/01/2013 08:26:00 Document Registration [id number] 01/18/2013 09:47:00 Document Registration [id number] 12/14/2012 09:48:00 Document Registration [id number] 03/12/2011 08:11:00 Document Registration [id number] 12/29/2010 09:44:00 Document Registration [id number] 11/08/2010 10:12:00 Document Registration [id number] 10/20/2010 09:44:00 Document Registration [id number] 08/17/2010 12:10:00 Document Registration [id number] 02/02/2010 12:03:00 Document Registration [id number] 11/05/2009 10:14:00 Document Registration [id number] 06/26/2015 05:40:55 ACT Document Registration [id number] 12/09/2016 08:44:00 Document Registration [id number] 01/25/2018 08:00:00 01/25/2018 23:59:59 [facility] Outpatient BHARAT MANCIA APRN [facility] [id number] 01/12/2018 09:20:00 Document Registration [id number] 12/28/2017 11:20:00 Document Registration [id number] 08/31/2017 10:00:00 Document Registration
[2018-02-11] MEDS ORDERED: SULF-222 (10:16)
[2018-02-11] MEDS ORDERED: LIDO15SO2 (10:16)
[2018-02-11] MEDS ORDERED: KETOROLAC 30 MG/ML VIAL IVP ONE (11:00)
[2018-02-11] MEDS ORDERED: cefTRIAXone INJECTION 2,000 MG in NS (IVPB) 100 ML IV ONE (11:00)
[2018-02-11 12:12] LABS: BASOPHILS % (AUTO) 0 % (0-10); EOSINOPHILS # (AUTO) 0.5 10^3/uL (0.0-0.3); EOSINOPHILS % (AUTO) 3 % (0-10); HEMATOCRIT 39 % (35-52); HEMOGLOBIN 12.8 G/DL (11.5-16.0); LYMPHOCYTES # (AUTO) 1.5 X 10^3 (1.0-4.0); LYMPHOCYTES % (AUTO) 11 % (12-44); MEAN CORPUSCULAR HEMOGLOBIN 29 PG (25-34); MEAN CORPUSCULAR HGB CONC 33 G/DL (32-36); MEAN CORPUSCULAR VOLUME 86 FL (80-99); MEAN PLATELET VOLUME 10.2 FL (7.4-10.4); MONOCYTES # (AUTO) 1.1 X 10^3 (0.0-1.0); MONOCYTES % (AUTO) 8 % (0-12); NEUTROPHILS # (AUTO) 10.2 X 10^3 (1.8-7.8); NEUTROPHILS % (AUTO) 77 % (42-75); PLATELET COUNT 293 10^3/uL (130-400); RED BLOOD COUNT 4.49 10^6/uL (4.35-5.85); RED CELL DISTRIBUTION WIDTH 14.9 % (10.0-14.5); WHITE BLOOD COUNT 13.3 10^3/uL (4.3-11.0)
--- NOTE | 2018-02-11 12:13 | ED EENT ---
History of Present Illness General Chief Complaint: Dental Problems/Pain Stated Complaint: MOUTH SWELLING FROM TOOTH PAIN Nursing Triage Note: TO ROOM C/O TOOTH ACHE WAS SEEN BY [facility] YESTERDAY. GIVEN 2 RX ONLY FILLED ONE OF THEM. TODAY R JAW SWOLLEN. Source: patient History of Present Illness Date Seen by Provider: Feb 11, 2018 Time Seen by Provider: 10:40 Initial Comments PT ARRIVES VIA POV C/O RIGHT LOWER MOLAR DENTAL PAIN FOR A COUPLE OF DAYS BEGAN TO HAVE SWELLING TO RIGHT JAW YESTERDAY AND IS MUCH WORSE TODAY HAS HAD SUBJECTIVE FEVER STATES SHE CANNOT SWALLOW PILLS BECAUSE SHE CANNOT OPEN HER MOUTH WIDE ENOUGH, BUT IS ABLE TO SWALLOW LIQUIDS HAS NOT BEEN ABLE TO TAKE ANY OF HER REGULAR MEDICATIONS TODAY NO NAUSEA/VOMITING NO HEADACHE NO PARESTHESIAS OR MOTOR DEFICITS. HAS HAD CHRONIC PROBLEMS WITH TEETH BUT HAS NOT ATTEMPTED TO CONTACT DENTIST FOR THIS PROBLEM AND HAS NOT SEEN A DENTIST IN A LONG TIME. MULTIPLE ER VISITS FOR DENTAL PAIN [facility] Allergies and Home Medications Allergies Coded Allergies: Iodinated Contrast Media - Oral and (Verified Allergy, Unknown, 05/28/06) Penicillins (Verified Allergy, Unknown, 05/29/06) tramadol (Unverified Allergy, Unknown, 01/22/14) vancomycin (Verified Allergy, Unknown, 05/29/06) Home Medications Albuterol Sulfate 6.7 Gm Hfa.aer.ad, 2 PUFF IH Q6H PRN for SHORTNESS OF BREATH, (Reported) Aspirin 325 Mg Tab, 325 MG PO DAILY, (Reported) Cefdinir 250 Mg/5 Ml Susp.recon, 300 MG PO BID Prescribed by: MARKOS RDZ on 02/11/18 1324 Cefprozil 250 Mg Tablet, 1 TAB PO BID Prescribed by: OG FERNANDO on 05/14/141999 Esomeprazole Mag Trihydrate 40 Mg Capsule.dr, 40 MG PO DAILY, (Reported) Furosemide 40 Mg Tablet, 40 MG PO DAILY, (Reported) Hydrocodone Bit/Acetaminophen 1 Each Tablet, 1-2 EACH PO Q6H PRN for PAIN- MODERATE Prescribed by: EVELINE PENG on 06/20/17 1413 Hydrocodone/Acetaminophen 118 Ml Solution, 15 ML PO Q4H PRN for PAIN Prescribed by: MARKOS RDZ on 02/11/18 1324 Metoprolol Succinate 25 Mg Tab.sr.24h, 25 MG PO DAILY, (Reported) Warfarin Sodium 3 Mg Tablet, 9 MG PO DAILY EXCEPT WOLFF/TU, (Reported) 12 mg on WOLFF-TU Warfarin Sodium 3 Mg Tablet, 12 MG PO ON SUN-TUES, (Reported) [Albuteral Inhaler] , NEEDED, (Reported) Patient Home Medication List Home Medication List Reviewed: Yes Review of Systems Constitutional: see HPI, fever Eyes: No Symptoms Reported Ears: No Symptoms Reported Nose: no symptoms reported Mouth: see HPI, pain, swelling Throat: no symptoms reported Respiratory: no symptoms reported Cardiovascular: no symptoms reported Gastrointestinal: no symptoms reported Musculoskeletal: no symptoms reported Skin: no symptoms reported Neurological: No Symptoms Reported Hematologic/Lymphatic: No Symptoms Reported Immunological/Allergic: no symptoms reported Past Jcjjdnd-Knrnjh-Essoon Hx Patient Social History Alcohol Use: Occasionally Uses Recreational Drug Use: No Smoking Status: Former Smoker Type Used: Cigarettes Former Smoker, Quit: Jan 15, 1974 Recent Foreign Travel: No Contact w/Someone Who Travel: No Recent Infectious Disease Expo: No Recent Hopitalizations: No Immunizations Up To Date Tetanus Booster (TDap): Unknown Past Medical History Surgeries: Yes Appendectomy, Cardiac, CABG, Tubal Ligation, Valve Replacement Respiratory: Yes Asthma, Chronic Bronchitis, COPD Cardiac: Yes Coronary Artery Disease, Hypertension, Valvular Heart Disease Neurological: No Reproductive Disorders: No Genitourinary: Yes UTI-Chronic Gastrointestinal: Yes Gastroesophageal Reflux, Hiatal Hernia Musculoskeletal: Yes Arthritis, Rheumatoid Arthritis Endocrine: No HEENT: Yes (CHRONIC DENTAL PROBLEMS) Cancer: No Psychosocial: No Integumentary: No Blood Disorders: No Family Medical History No Pertinent Family Hx Physical Exam Vital Signs Vital Signs - First Documented 02/11/18 10:06 Temp 97.8 Pulse 88 Resp 18 B/P (MAP) 156/86 (109) Pulse Ox 98 O2 Delivery Room Air General Appearance: WD/WN, no apparent distress Eyes: bilateral eye normal inspection, bilateral eye PERRL Ears: bilateral ear auricle normal, bilateral ear canal normal Nose: normal inspection Mouth/Throat: mandibular swelling, maxillary swelling, trismus, other ( SIGNIFICANT SWELLING TO RIGHT SIDE OF FACE AND MANDIBLE. + TRISMUS. EXTENSIVE DENTAL DECAY AND MULTIPLE MISSING TEETH. LIMITED ORAL EXAM. BUT OFFENDING TOOTH APPEARS TO BE A RIGHT LOWER MOLAR. SLIGHT ERYTHEMA TO RIGHT SIDE OF FACE AND MANDIBLE AREA. ) Neck: full range of motion, lymphadenopathy (R), lymphadenopathy (L) Cardiovascular: regular rate, rhythm, systolic murmur (2-3/6 WITH MECHANICAL CLICK) Respiratory: normal breath sounds, no respiratory distress, no accessory muscle use Neurologic/Psychiatric: hollow ware maker II-XII nml as tested, no motor/sensory deficits, alert, normal mood/affect, oriented x 3 Skin: normal color, warm/dry Progress/Results/Core Measures Lab Results Laboratory Tests Test 02/11/18 11:41 02/11/18 11:57 Range/Units Lactic Acid Level 1.54 0.50-2.00 MMOL/L White Blood Count 13.3 H 4.3-11.0 10^3/uL Red Blood Count 4.49 4.35-5.85 10^6/uL Hemoglobin 12.8 11.5-16.0 G/DL Hematocrit 39 35-52 % Mean Corpuscular Volume 86 80-99 FL Mean Corpuscular Hemoglobin 29 25-34 PG Mean Corpuscular Hemoglobin Concent 33 32-36 G/DL Red Cell Distribution Width 14.9 H 10.0-14.5 % Platelet Count 293 130-400 10^3/uL Mean Platelet Volume 10.2 7.4-10.4 FL Neutrophils (%) (Auto) 77 H 42-75 % Lymphocytes (%) (Auto) 11 L 12-44 % Monocytes (%) (Auto) 8 0-12 % Eosinophils (%) (Auto) 3 0-10 % Basophils (%) (Auto) 0 0-10 % Neutrophils # (Auto) 10.2 H 1.8-7.8 X 10^3 Lymphocytes # (Auto) 1.5 1.0-4.0 X 10^3 Monocytes # (Auto) 1.1 H 0.0-1.0 X 10^3 Eosinophils # (Auto) 0.5 H 0.0-0.3 10^3/uL Basophils # (Auto) 0.0 0.0-0.1 10^3/uL Prothrombin Time 18.6 H 12.2-14.7 SEC INR Comment 1.6 H 0.8-1.4 Activated Partial Thromboplast Time 38 H 24-35 SEC Sodium Level 138 135-145 MMOL/L Potassium Level 4.1 3.6-5.0 MMOL/L Chloride Level 104 98-107 MMOL/L Carbon Dioxide Level 24 21-32 MMOL/L Anion Gap 10 5-14 MMOL/L Blood Urea Nitrogen 14 7-18 MG/DL Creatinine 0.72 0.60-1.30 MG/DL Estimat Glomerular Filtration Rate > 60 BUN/Creatinine Ratio 19 Glucose Level 111 H 70-105 MG/DL Calcium Level 9.4 8.5-10.1 MG/DL Total Bilirubin 0.5 0.1-1.0 MG/DL Aspartate Amino Transf (AST/SGOT) 19 5-34 U/L Alanine Aminotransferase (ALT/SGPT) 21 0-55 U/L Alkaline Phosphatase 101 40-136 U/L Total Protein 7.3 6.4-8.2 GM/DL Albumin 4.1 3.2-4.5 GM/DL My Orders Orders - MARKOS RDZ DO Saline Lock/Iv-Start (02/11/18 10:46) Ct Maxillofacial Wo (02/11/18 10:46) Cbc With Automated Diff (02/11/18 10:46) Comprehensive Metabolic Panel (02/11/18 10:46) Lactic Acid Analyzer (02/11/18 10:46) Protime With Inr (02/11/18 10:46) Partial Thromboplastin Time (02/11/18 10:46) Blood Culture (02/11/18 10:46) Ketorolac Injection (Toradol Injection) (02/11/18 11:00) Ceftriaxone Injection (Rocephin Injectio (02/11/18 11:00) Dexamethasone Injection (Decadron Inject (02/11/18 13:00) Orphenadrine Injection (Norflex Injectio (02/11/18 13:00) Medications Given in ED Current Medications Medications Dose Ordered Sig/Korey Route Start Time Stop Time Status Last Admin Dose Admin Ceftriaxone Sodium 2000 mg/ Sodium Chloride 100 ml @ 200 mls/hr ONCE ONCE IV 02/11/18 11:00 02/11/18 11:29 DC 02/11/18 12:05 200 MLS/HR Dexamethasone Sodium Phosphate 10 mg ONCE ONCE IV 02/11/18 13:00 02/11/18 13:01 DC 02/11/18 13:13 10 MG Ketorolac Tromethamine 30 mg ONCE ONCE IVP 02/11/18 11:00 02/11/18 11:01 DC 02/11/18 11:25 30 MG Orphenadrine Citrate 60 mg ONCE ONCE IVP 02/11/18 13:00 02/11/18 13:01 DC 02/11/18 13:10 60 MG Vital Signs/I&O 02/11/18 02/11/18 10:06 13:40 Temp 97.8 97.8 Pulse 88 88 Resp 18 18 B/P (MAP) 156/86 (109) 155/80 (109) Pulse Ox 98 98 O2 Delivery Room Air Blood Pressure Mean: 109 Progress Note : Progress Note PAIN IMPROVED AT DISMISSAL Comments CT MAXILLOFACIALS--SIGNIFICANT SOFT TISSUE SWELLING AND EDEMA OF RIGHT CHEEK AND MANDIBULAR REGION, LIKELY CELLULITIS FROM DENTAL INFECTION. NOS ORGANIZED ABSCESS. REACTIVE LYMPHADENOPATHY. SINUS DISEASE--PER RADIOLOGIST REPORT Reviewed: Reviewed by Co Departure Communication (Admissions) 9885--SPOKE WITH DR. ZULETA. SHE ADVISES TO SEND PT HOME WITH LIQUID ANTIBIOTICS AND HAVE PT FOLLOW UP IN CLINIC TOMORROW. ALSO ADVISES TO GIVE MUSCLE RELAXANT Impression Primary Impression: DENTAL CARIES WITH INFECTION AND FACIAL CELLULITIS Disposition: HOME, SELF-CARE Condition: Stable Departure-Patient Inst. Referrals: [facility] ([facility]P) Primary Care Physician BHARAT MANCIA (Family) Primary Care Physician Patient Instructions: Cellulitis (Skin Infection), Adult (DC), Dental Pain (DC) , Tooth Abscess (DC) Add. Discharge Instructions: ALTERNATE ICE AND HEAT TO AREA AT 20 MINUTE INTERVALS LOTS OF CLEAR LIQUIDS SOFT FOODS--NO FOODS THAT REQUIRE CHEWING FOLLOW UP WITH [facility] TOMORROW FOR FURTHER CARE RETURN TO ER IF WORSE All discharge instructions reviewed with patient and/or family. Voiced understanding. Scripts Hydrocodone/Acetaminophen (Hydrocodon-Acetamin 7.5-325/15 ML) 118 Ml Solution 15 ML PO Q4H PRN for PAIN, #150 ML Prov: MARKOS RDZ DO 02/11/18 Cefdinir (Cefdinir) 250 Mg/5 Ml Susp.recon 300 MG PO BID, #120 ML Prov: MARKOS RDZ DO 02/11/18 MARKOS RDZ DO Feb 11, 2018 12:13
[2018-02-11 12:24] LABS: INR 1.6 (0.8-1.4); PROTHROMBIN TIME PATIENT 18.6 SEC (12.2-14.7)
[2018-02-11 12:33] LABS: ALANINE AMINOTRANSFERASE 21 U/L (0-55); ALBUMIN 4.1 GM/DL (3.2-4.5); ALKALINE PHOSPHATASE 101 U/L (40-136); BILIRUBIN,TOTAL 0.5 MG/DL (0.1-1.0); BUN/CREATININE RATIO 19; CALCIUM 9.4 MG/DL (8.5-10.1); CARBON DIOXIDE 24 MMOL/L (21-32); CHLORIDE 104 MMOL/L (98-107); CREATININE SERUM 0.72 MG/DL (0.60-1.30); GFR ESTIMATED > 60; GLUCOSE 111 MG/DL (70-105); POTASSIUM 4.1 MMOL/L (3.6-5.0); SODIUM 138 MMOL/L (135-145); TOTAL PROTEIN 7.3 GM/DL (6.4-8.2)
--- NOTE | 2018-02-11 12:35 | Diagnostic Imaging Report ---
PROCEDURE: CT maxillofacial without contrast. TECHNIQUE: Multiple contiguous axial images were obtained through the facial bones without the use of intravenous contrast. INDICATION: Right-sided facial swelling, tooth infection COMPARISON: None FINDINGS: There is moderate soft tissue swelling of the right cheek overlying the right mandibular angle and body. There is periapical lucency and dental caries of second right mandibular molar. There is scattered dental disease involving the maxillary and left mandibular teeth. There is no obvious organized abscess seen. There is no soft tissue gas. There is no CT evidence of osteomyelitis. Mucous retention cysts are seen in the sphenoid and right maxillary sinus. There is some mucosal thickening throughout the maxillary sinuses. No air-fluid levels are seen. IMPRESSION: 1. Significant soft tissue edema and swelling of the right cheek and mandibular region likely cellulitis from dental infection. No organized abscess is seen. 2. Not mentioned above, reactive submental lymphadenopathy. 3. Sinus disease. Dictated by: Dictated on workstation # [id number]
[2018-02-11] MEDS ORDERED: ORPHENADRINE 60 MG/2 ML (NORFLEX) AMP IVP ONE (13:00)
[2018-02-11] MEDS ORDERED: DEXAMETHASONE 4 MG/ML SDV (DECADRON) IV ONE (13:00)
[2018-02-11] MEDS ORDERED: HYDR118S10 PO (13:24)
[2018-02-11] MEDS ORDERED: CEFD250S3 PO (13:24)
[2018-02-11 13:40] VITALS: BP 155/80
== END 2018-02-11 13:40 | disposition home or self-care (01) ==
LOC: EDUNIT# 09:57 → ER 09:58
DX: K02.9 Dental caries, unspecified (principal); L03.211 Cellulitis of face; M06.9 Rheumatoid arthritis, unspecified; J44.9 Chronic obstructive pulmonary disease, unspecified; I25.10 Atherosclerotic heart disease of native coronary artery without angina pectoris; I10 Essential (primary) hypertension; K21.9 Gastro-esophageal reflux disease without esophagitis; Z95.2 Presence of prosthetic heart valve; Z95.5 Presence of coronary angioplasty implant and graft; Z98.51 Tubal ligation status; Z90.49 Acquired absence of other specified parts of digestive tract; Z87.891 Personal history of nicotine dependence; Z79.01 Long term (current) use of anticoagulants; Z79.82 Long term (current) use of aspirin; Z88.0 Allergy status to penicillin; Z88.1 Allergy status to other antibiotic agents; Z88.6 Allergy status to analgesic agent; Z91.041 Radiographic dye allergy status
CPT/HCPCS: 36415; 70486; 80053; 83605; 85025; 85610; 85730; 87040; 96365; 96375

== ENCOUNTER 2018-03-05 19:29 | Emergency (ER) | payer MEDICARE, MEDICAID ==
[~2018-03-05] VITALS: Ht 152.4 cm; Wt 86.2 kg
[~2018-03-05 19:29] MED LIST changes: +CEFD250S3 PO; +HYDR118S10 PO; +LIDO15SO2; +SULF-222
[2018-03-05] MEDS ORDERED: LIDOCAINE 1% INJ 20 ML 20 ML VIAL ONE (20:00)
[2018-03-05] MEDS ORDERED: TETANUS,DIPTH,PERTUSS P/F (BOOSTRIX) 0.5 ML VIAL IM ONE (20:01)
[2018-03-05] MEDS ORDERED: TETANUS,DIPTH,PERTUSS P/F (BOOSTRIX) 0.5 ML VIAL IM STA (20:04)
[2018-03-05] MEDS ORDERED: LIDOCAINE 1% INJ 20 ML 20 ML VIAL INJ ONE (20:15)
[2018-03-05 20:57] VITALS: BP 143/91
[2018-03-05] MEDS ORDERED: LEVOFLOXACIN 500 MG TAB (LEVAQUIN) PO ONE (21:00)
[2018-03-05] MEDS ORDERED: RX-HYDROCODONE/APAP 5/325 MG #4 TAB PK PO PRN (21:00)
[2018-03-05] MEDS ORDERED: CIPR500T4 PO (21:06)
--- NOTE | 2018-03-05 21:06 | ED General ---
General Chief Complaint: Foreign Body Stated Complaint: HOOK IN R HAND RING FINGER Nursing Triage Note: Patient advises she was looking through an old box when a fish hook went into her right ring finger. Pt. denies tetanus shot within the last five years and states she is on blood thinners. Nursing Sepsis Screen: No Definite Risk Source of Information: Patient Exam Limitations: No Limitations History of Present Illness Date Seen by Provider: March 05, 2018 Time Seen by Provider: 20:35 Initial Comments 62-year-old female patient presents to the emergency department with complaints of a fish hook to the right fourth finger. Location Injury Occurred: home Timing/Duration: 1 Hour Allergies and Home Medications Allergies Coded Allergies: Iodinated Contrast Media - Oral and (Verified Allergy, Unknown, 05/28/06) Penicillins (Verified Allergy, Unknown, 05/29/06) tramadol (Unverified Allergy, Unknown, 01/22/14) vancomycin (Verified Allergy, Unknown, 05/29/06) Home Medications Albuterol Sulfate 6.7 Gm Hfa.aer.ad, 2 PUFF IH Q6H PRN for SHORTNESS OF BREATH, (Reported) Aspirin 325 Mg Tab, 325 MG PO DAILY, (Reported) Cefdinir 250 Mg/5 Ml Susp.recon, 300 MG PO BID Prescribed by: MARKOS RDZ on 02/11/18 132 Cefprozil 250 Mg Tablet, 1 TAB PO BID Prescribed by: OG FERNANDO on 05/14/141999 Ciprofloxacin HCl 500 Mg Tablet, 500 MG PO BID Prescribed by: JUDY HU on 03/05/182105 Esomeprazole Mag Trihydrate 40 Mg Capsule.dr, 40 MG PO DAILY, (Reported) Furosemide 40 Mg Tablet, 40 MG PO DAILY, (Reported) Hydrocodone Bit/Acetaminophen 1 Each Tablet, 1-2 EACH PO Q6H PRN for PAIN- MODERATE Prescribed by: EVELINE PENG on 06/20/17 1413 Hydrocodone/Acetaminophen 118 Ml Solution, 15 ML PO Q4H PRN for PAIN Prescribed by: MARKOS RDZ on 02/11/18 1324 Metoprolol Succinate 25 Mg Tab.sr.24h, 25 MG PO DAILY, (Reported) Warfarin Sodium 3 Mg Tablet, 9 MG PO DAILY EXCEPT WOLFF/TU, (Reported) 12 mg on WOLFF-TU Warfarin Sodium 3 Mg Tablet, 12 MG PO ON SUN-TU, (Reported) [Albuteral Inhaler] , NEEDED, (Reported) Patient Home Medication List Home Medication List Reviewed: Yes Review of Systems Constitutional: no symptoms reported Musculoskeletal: see HPI Skin: see HPI Psychiatric/Neurological: Denies Numbness, Denies Paresthesia, Denies Tingling , Denies Weakness All Other Systems Reviewed Negative Unless Noted: Yes (Negative excepted noted.) Past Zsnjrbp-Tbuhed-Bmbwtl Hx Patient Social History Alcohol Use: Denies Use Recreational Drug Use: No Smoking Status: Former Smoker Type Used: Cigarettes Former Smoker, Quit: Jan 15, 1974 Recent Foreign Travel: No Contact w/Someone Who Travel: No Recent Infectious Disease Expo: No Recent Hopitalizations: No Physical Abuse: No Sexual Abuse: No Immunizations Up To Date Tetanus Booster (TDap): Unknown Seasonal Allergies Seasonal Allergies: No Past Medical History Surgeries: Yes Appendectomy, Cardiac, CABG, Tubal Ligation, Valve Replacement Respiratory: Yes Asthma, Chronic Bronchitis, COPD Cardiac: Yes Coronary Artery Disease, Hypertension, Valvular Heart Disease Neurological: No Reproductive Disorders: No Genitourinary: Yes UTI-Chronic Gastrointestinal: Yes Gastroesophageal Reflux, Hiatal Hernia Musculoskeletal: Yes Arthritis, Rheumatoid Arthritis Endocrine: No HEENT: Yes (CHRONIC DENTAL PROBLEMS) Cancer: No Psychosocial: No Nursing Suicide Risk Score: 0 Integumentary: No Blood Disorders: No Family Medical History Reviewed Nursing Family Hx No Pertinent Family Hx Physical Exam Vital Signs Vital Signs - First Documented 03/05/18 19:53 Pulse 70 Resp 14 B/P (MAP) 143/91 (108) Pulse Ox 98 O2 Delivery Room Air Capillary Refill : Less Than 3 Seconds General Appearance: No Apparent Distress, WD/WN Cardiovascular: Normal Peripheral Pulses Extremity: Normal Capillary Refill, Normal Range of Motion, Other (single fishhook noted to the distal palmar surface of the right fourth finger with soft tissue tenderness.) Neurologic/Psychiatric: Alert, Oriented x3, No Motor/Sensory Deficits, Normal Mood/Affect Skin: Normal Color, Warm/Dry, Other (single fishhook noted to the distal palmar surface of the right fourth finger with soft tissue tenderness.) Procedures/Interventions I&D : Site: right fourth finger Progress Digital block of the right fourth finger performed with 3 cc's of 1% lidocaine. Needle nose pliers used to advance the fishhook through the pad of the finger. Soledad removed and fishhook removed in its entirety. Wound scrubbed with chlorhexidine and sterile saline. Triple antibiotic ointment applied and covered with a 2 x 2 gauze and Band-Aid. Blood loss minimal. Patient started the procedure well. Progress/Results/Core Measures Suspected Sepsis Recent Fever Within 48 Hours: No Infection Criteria Present: None New/Unexplained Altered Menta: No Sepsis Screen: No Definite Risk SIRS Temperature: Pulse: 86 Respiratory Rate: 18 Blood Pressure 143 /91 Mean: 108 Results/Orders My Orders Orders - JUDY HU DiphtKasey(Acell),Tet Adult (Boostrix (03/05/18 20:04) Lidocaine 1% Inj 20 Ml (Xylocaine 1% Inj (03/05/18 20:15) Lidocaine 1% Inj 20 Ml (Xylocaine 1% Inj (03/05/18 20:00) Dipht,Pertuss(Acell),Tet Adult (Boostrix (03/05/18 20:01) Rx-Hydrocodone/Apap 5-325 Mg (Rx-Vicodin (03/05/18 21:00) Levofloxacin Tablet (Levaquin Tablet) (03/05/18 21:00) Medications Given in ED Current Medications Medications Dose Ordered Sig/Korey Route Start Time Stop Time Status Last Admin Dose Admin Acetaminophen/ Hydrocodone Bitart 1 ea Q6H PRN PO 03/05/18 21:00 03/05/18 21:06 1 EA Levofloxacin 500 mg ONCE ONCE PO 03/05/18 21:00 03/05/18 21:01 DC 03/05/18 21:06 500 MG Lidocaine HCl 20 ml ONCE ONCE INJ 03/05/18 20:15 03/05/18 20:16 DC 03/05/18 20:09 20 ML Vital Signs/I&O 03/05/18 03/05/18 19:53 20:57 Pulse 70 86 Resp 14 18 B/P (MAP) 143/91 (108) 143/91 Pulse Ox 98 98 O2 Delivery Room Air Room Air Capillary Refill : Less Than 3 Seconds Blood Pressure Mean: 108 Departure Impression Primary Impression: Superficial foreign body of finger Qualified Codes: S60.459A - Superficial foreign body of unspecified finger, initial encounter Disposition: 01 HOME, SELF-CARE Condition: Improved Departure-Patient Inst. Decision time for Depature: 21:04 Referrals: [facility] (PCP) Primary Care Physician BHARAT MANCIA (Family) Primary Care Physician Patient Instructions: Wound Care (DC) Add. Discharge Instructions: All discharge instructions reviewed with patient and/or family. Voiced understanding. Medications as instructed. Tylenol extra strength over-the- counter as directed for pain. Elevate the right hand on pillows. Ice pack for 20 minute intervals as needed for pain. Shower with antibacterial soap. Pat dry and apply triple antibiotic ointment twice daily for 3 days. Cover with a bandage. Follow-up with your primary care provider if needed. Return to the emergency department for worsened symptoms, redness, fever, drainage, or any other concerns. Scripts Ciprofloxacin HCl (Ciprofloxacin HCl) 500 Mg Tablet 500 MG PO BID, #8 TAB 0 Refills Prov: JUDY HU 03/05/18 JUDY HU March 05, 2018 21:06
--- OUTSIDE RECORDS SUMMARY | 2018-03-06 16:49 | XMS REPORT ---
Author Author JASPREET DIOGENES Organization [facility] Address [address] [place] [address] Care Team Providers Care Dough Sheeter Name Role Phone DIOGENES VOGEL Unavailable PROBLEMS Type Condition ICD9-CM Code ORM07-XG Code Onset Dates Condition Status SNOMED Code Problem Essential (primary) hypertension I10 Active 22384175 Problem Heart valve disorder I38 Active 067695 Problem Breast cancer screening Z12.39 Active 824997760 Problem Gastroesophageal reflux disease with esophagitis K21.0 Active 951270889 Problem Nocturnal hypoxia G47.34 Active 544600375 Problem Aortic valve stenosis, unspecified etiology I35.0 Active 27013770 Problem Essential hypertension I10 Active 18925508 Problem Stress incontinence N39.3 Active 27836295 Problem Hyperlipidemia, unspecified hyperlipidemia type E78.5 Active 61975204 Problem Hyperglycemia R73.9 Active 41553273 Problem COPD (chronic obstructive pulmonary disease) J44.9 Active 38956585 Problem Mixed stress and urge urinary incontinence N39.46 Active 435473037 Problem group home (current) use of anticoagulants Z79.01 Active 461191271 Problem Thyroid nodule, cold E04.1 Active 623348453 Problem 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 Active [id number] ALLERGIES Substance Reaction Event Type Date Status Singulair Unknown Drug Allergy Jun, Active Simvastatin Unknown Drug Allergy Jun, Active Penicillin V Potassium Unknown Drug Allergy Jun, Active Iodine Unknown Drug Allergy Jun, Active ENCOUNTERS Encounter Location Date Diagnosis [facility] [address] [facility] [id number] [id number] February, [facility] [address] [facility] [id number] [id number] February, [facility] [address] [facility] [id number] [address] February, technician terminal and repeater (current) use of anticoagulants Z79.01 [facility] [address] [id number] [address] February, [facility] [address] [address] February, group home (current) use of anticoagulants Z79.01 [facility] [address] [id number] [address] Jan, [facility] [place] [address] [id number] [place] [id number] Jan, [facility] [address] [place] [address] 14407- 8717 Jan, Dental abscess K04.7 ; Dental caries K02.9 and Pain, dental K08.89 [facility] [address] [place] [address] 33920 -6741 Jan, Tooth abscess K04.7 [facility] [address]65[address] [address] Jan, Medicare annual wellness visit, initial Z00.00 ; Encounter for immunization Z23 ; Dysuria R30.0 ; COPD (chronic obstructive pulmonary disease) J44.9 ; Essential (primary) hypertension I10 ; Breast cancer screening Z12.39 ; Aortic valve stenosis, unspecified etiology I35.0 ; Hyperlipidemia, unspecified hyperlipidemia type E78.5 ; Gastroesophageal reflux disease with esophagitis K21.0 ; group home (current) use of anticoagulants Z79.01 and Colon cancer screening Z12.11 [facility] [address] [id number] [address] Jan, Dental infection K04.7 [facility] [address]65[address] [address] Jan, [facility] [address] [id number] [address] Dec, Essential hypertension I10 and 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 [place] [id number] [address]71- 39[address] Dec, [place] [address] [address]17- 0965 Dec, Urinary tract infection, site not specified N39.0 [place] [address] 36581- 3535 Dec, Cough R05 ; Dysuria R30.0 ; technician terminal and repeater (current) use of anticoagulants Z79.01 ; 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 and Urinary tract infection without hematuria, site unspecified N39.0 [facility] [place] [address] [address] Dec, Seasonal allergic rhinitis, unspecified trigger J30.2 [place] [address] 58694- 5546 Nov, [place] [address] 55150- 4086 Nov, Mixed stress and urge urinary incontinence N39.46 [place] [address] 88928- 3331 Nov, [place] [address] [address]37- 2008 Nov, [facility] [place] [address] 11524 -9983 Nov, Gastroesophageal reflux disease with esophagitis K21.0 [facility] [place] [address] [address] [id number] [place] [address] 93802 -1056 02 Nov, 2017 Upper respiratory infection, acute J06.9 and Post-nasal drainage R09.82 [place] [id number] [place] [address] 09600- 5227 Oct, COPD (chronic obstructive pulmonary disease) J44.9 and Nocturnal hypoxia G47.34 [place] [address] [place] [address] 10706- 1323 Oct, [place] [id number] [place] [address] 75987- 2314 Oct, Stress incontinence N39.3 ; COPD (chronic obstructive pulmonary disease) J44.9 and technician terminal and repeater (current) use of anticoagulants Z79.01 [place] [address] 49307- 7697 Oct, [place] [address] [address] [id number] [place] [address] 72676- 6675 Sep, Nasal congestion R09.81 [place] [address] 42738- 3562 Sep, [facility] [place] [id number] [place] [address] 12506 -3664 Aug, Other viral agents as the cause of diseases classified elsewhere B97.89 ; Acute upper respiratory infection, unspecified J06.9 and BMI 40.0-44.9, adult Z68.41 [place] [id number] [place] [address] 80133- 8817 Aug, Dysuria R30.0 ; Urinary tract infection, site not specified N39.0 ; Hematuria, unspecified R31.9 and Stress incontinence N39.3 [facility] IN [place] [address] [place] [address] 67897 -6799 Jul, Oral abscess K12.2 [place] [address] [address] [id number] [place] [address] 29990- 1821 Jul, [facility] [address] [place] [id number] [place] [address] 65191- 4171 Jul, [facility] [address] [place] [id number] 28 Jun, 2017 Dental examination Z01.20 [facility] [place] [address] [id number] [place] [id number] Jun, [facility] [place] [address] [facility] [id number] [place] [id number] Jun, [facility] [address]00565[address] [address] May, Plantar fasciitis of right foot M72.2 [facility] [address]65[address] [address] 4[address] May, [facility] [address] [place] [address] 43395 -5628 Apr, Acute upper respiratory infection, unspecified J06.9 and Seasonal allergic rhinitis, unspecified chronicity, unspecified trigger J30.2 [facility] [address] [place] [address] 79055- 9371 Mar, Plantar fasciitis of right foot M72.2 and Bursitis of right foot M71.571 [facility] [address] [place] [address] 31594 -5141 Mar, Acute seasonal allergic rhinitis, unspecified trigger J30.2 [facility] [address] [place] [address] 84358 -8618 February, Acute upper respiratory infection, unspecified J06.9 [facility] [address]65[address] [address] February, [facility] [address] [address] 48[address] February, [facility] [address] [place] [address] 66056- 9983 Jan, Right foot pain M79.671 and group home (current) use of anticoagulants Z79.01 [facility] [address] [address] Jan, Dental caries K02.9 [facility] [address], [place] [address] 7232 Jan, [facility] [id number] [place] [address] 0100 Jan, [facility] [address] 88174- 5762 Jan, group home (current) use of anticoagulants Z79.01 [place] [address] 20222- 4602 Jan, [place] [address] 17503- 8405 Jan, 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 ; Aortic valve stenosis, unspecified etiology I35.0 ; Essential hypertension I10 and Hyperlipidemia, unspecified hyperlipidemia type E78.5 [place] [address] 84252- 6910 Jan, Dental examination Z01.20 [facility] [place] [address] 49322 -5015 Jan, Tooth abscess K04.7 and Abscess of mouth K12.2 [place] [address] 02941- 1314 Dec, [place] [address] 52415- 4271 Dec, Cough R05 [place] [address] [place] [id number] [place] [address] 63763- 9153 Dec, [facility] [address] 56915 -4786 Dec, Dental abscess K04.7 [place] [address] 55397- 9000 Nov, technician terminal and repeater (current) use of anticoagulants Z79.01 and Hypokalemia E87.6 [place] [address] [id number] [place] [address] 22303- 4674 16 Nov, 2016 group home (current) use of anticoagulants Z79.01 [place] [id number] [place] [address] 29494- 2247 16 Nov, 2016 group home (current) use of anticoagulants Z79.01 ; Hyperglycemia R73.9 ; Hypokalemia E87.6 and Heart valve disorder I38 [facility] [id number] [place] [address] 02913 -6635 08 Nov, 2016 Pain of right heel M79.671 [facility] [address] 65415- 9325 Sep, Back pain M54.9 [facility] [id number] [place] [address] 92238- 0880 Sep, [facility] [id number] [place] [address] 06437- 0609 Sep, Back pain M54.9 [facility] [id number] [place] [address] 74267- 9372 Aug, Nasal congestion R09.81 [facility] [id number] [place] [address] 79633- 4615 Aug, [facility] [id number] [place] [address] 03097 -6469 Aug, Acute non-recurrent frontal sinusitis J01.10 [facility] [id number] [place] [address] 88557- 3604 Jul, [facility] [address] [id number] [place] [address] 05473- 9091 Jul, [facility] [id number] [place] [address] 11619- 4104 Jun, [facility] [address] [id number] [place] [address] 78405- 7214 Jun, [facility] [id number] [place] [address] 60847- 3433 May, [facility] [id number] [place] [address] 10394- 4116 May, [facility] [place] [id number] [place] [address] May technician terminal and repeater (current) use of anticoagulants Z79.01 [facility] [id number] [place] [address] 51426- 2435 Apr, group home (current) use of anticoagulants Z79.01 [facility] [address] 58865- 8251 Apr, [facility] [address] [id number] [place] [address] 97377- 6963 Apr, [place] [address] 13223- 5820 Apr, Hyperglycemia R73.9 and Breast cancer screening Z12.39 [place] [address] 36358- 1353 Mar, [facility] [id number] [place] [address] 95391 -5713 Mar, Left foot pain M79.672 [facility] [id number] [place] [address] 39494 -7719 February, Dysuria R30.0 [place] [address] 69784- 5854 February, technician terminal and repeater (current) use of anticoagulants Z79.01 [facility] [id number] [place] [address] 18078- 6969 February, group home (current) use of anticoagulants Z79.01 [facility] [id number] [place] [address] 26592- 7072 February, [facility] [id number] [place] [address] 65739- 7261 February, technician terminal and repeater (current) use of anticoagulants Z79.01 [place] [address] [place] [address]- 6225 February, group home (current) use of anticoagulants Z79.01 [facility] [address] 63551- 1624 Jan, [facility] [address] 49350- 8216 Jan, [facility] [address] 24161 -4995 Jan, Allergic rhinitis J30.9 ; Cough R05 and Stress incontinence N39.3 [place] [address] 94051- 6433 Jan, technician terminal and repeater (current) use of anticoagulants Z79.01 [place] [address] 64832- 5033 Jan, group home (current) use of anticoagulants Z79.01 [place] [address] 44933- 3747 Dec, technician terminal and repeater (current) use of anticoagulants Z79.01 ; 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 and Essential (primary) hypertension I10 [facility] [address] 28142- 8495 Dec, COPD (chronic obstructive pulmonary disease) J44.9 [place] [address] 52916- 6053 Dec, [place] [address] 73317- 5810 Dec, [place] [address] 10440- 1968 Dec, Hyperglycemia R73.9 ; COPD (chronic obstructive pulmonary disease) J44.9 ; technician terminal and repeater current use of anticoagulant therapy V58.61 and Back pain M54.9 [place] [address] 55675- 4816 Nov, [facility] [address] [address]- 8031 Nov, [facility] [id number] [place] [address] 62694- 8890 Oct, [facility] [id number] [place] [address] 87768- 3134 Oct, [facility] [id number] [place] [address] 56741- 7280 Oct, [facility] [id number] [place] [address] 53261 -2533 Sep, Bronchitis J40 [facility] [id number] [place] [address] 28115- 1860 Sep, [facility] [id number] [place] [address] 66595- 8974 Aug, [facility] [id number] [place] [address] 32782- 7691 Aug, [facility] [id number] [place] [address] 13979- 3652 Jul, [facility] [id number] [place] [address] [id number] Jul, Encounter for dental examination Z01.20 [facility] [id number] [place] [address] 10693- 6749 Jul, Ear pain, right H92.01 ; High risk medication use Z79.899 and Back pain, unspecified back pain laterality, unspecified location M54.9 [facility] [id number] [place] [address] 12810- 9733 Jul, Meningitis contact Z20.89 [facility] [id number] [place] [address] 31148- 6646 Jul, [facility] [id number] [place] [address] 33941- 3784 Jul, [facility] [address] [id number] [address]- 5092 Jul, [facility] [address] [address]- 4716 May, [facility] [address] [address]- 8326 May, [facility] [id number] [place] [address] 20582- 7941 Apr, group home current use of anticoagulant therapy V58.61 ; CAD (coronary artery disease) 414.00 ; Constipation 564.00 and Back pain 724.5 [facility] [address] [address]- 6046 Apr, [facility] [address], [place] [address]- 3976 Apr, [facility] [address] [place] [address] 65767- 3146 Apr, group home current use of anticoagulant therapy V58.61 ; Constipation 564.00 ; Back pain 724.5 and CAD (coronary artery disease) 414.00 [facility] [address] [address]- 7506 Apr, [facility] [address] [address]- 2856 Mar, [facility] [address] [address] 2546 Mar, [facility] [address] [address]- 8846 February, [facility] [address] [address]- 2546 February, [facility] [address] [address]- 0466 Jan, [facility] [address] [id number] [place] [address]- 9780 13 Jan, 2015 [facility] [place] [facility] [address] [id number] [place] [address]- 8219 Dec, [facility] [place] [facility] [address] [id number] [place] [address]- 2514 Dec, [facility] [place] [facility] [address] [id number] [place] [address]- 7911 Dec, [facility] [place] [facility] [address] [id number] [place] [address]- 5760 Dec, [facility] [place] [facility] [address] [id number] [place] [address]- 7130 Dec, [facility] [place] [facility] [address] [id number] [place] [address]- 1608 Dec, [facility] [place] [facility] [address] [id number] [place] [address]- 4959 Dec, [facility] [place] [facility] [address] [id number] [place] [address]- 5235 24 Dec, 2014 [facility] [place] [facility] [address] [id number] [place] [address]- 4552 Dec, [facility] [place] [facility] [address] [id number] [place] [address]- 8709 Dec, [facility] [place] [facility] [address] [id number] [place] [address]- 9752 17 Dec, 2014 [facility] [place] [facility] [address] [id number] [place] [address]- 5522 17 Dec, 2014 [facility] [place] [facility] [address] [id number] [place] [address]- 8427 16 Dec, 2014 [facility] [place] [facility] [address] [id number] [place] [address]- 1086 16 Dec, 2014 [facility] [place] [facility] [address] [id number] [place] 0583 Dec, [facility] [place] [facility] [address] [id number] [place] [address]- 6434 Dec, [facility] [place] [facility] [address] [id number] [place] [address]- 2841 Dec, [facility] [place] [facility] [address] [id number] [place] [address]- 1186 Dec, [facility] [place] [facility] [address] [id number] [place] [address]- 0435 Dec, [facility] [place] [facility] [address] [id number] [place] [address]- 2843 Dec, [facility] [place] [facility] [address] [id number] [place] [address]- 5624 Dec, [facility] [place] [facility] [address] [facility] [id number] [place] [address]- 5113 Nov, [facility] [place] [facility] [address] [facility] [id number] [place] [address]- 4105 Nov, 2014 [facility] [place] [facility] [address] [id number] [place] [address]- 6556 Nov, [facility] [place] [facility] [address] [facility] [id number] [place] [address]- 8183 Nov, [facility] [place] [facility] [address] [facility] [id number] [place] [address]- 7878 Nov, 2014 [facility] [place] [facility] [address] [id number] [place] [address]- 3211 Nov, 2014 [facility] [place] [facility] [address] [id number] [place] [address]- 4327 Nov, 2014 [facility] [place] [facility] [address] [facility] [id number] [place] [address]- 5079 Nov, 2014 [facility] [place] [facility] [address] [facility] [id number] [place] [address]- 5152 Nov, 2014 [facility] [place] [facility] [address] [id number] [place] [address]- 8221 Nov, 2014 [facility] [place] [facility] [address] [id number] [place] [address]- 0786 Nov, 2014 [facility] [place] [facility] [address] [id number] [place] [address]- 7111 Nov, 2014 [facility] [place] [facility] [address] [id number] [place] [address]- 0082 Nov, 2014 [facility] [place] [facility] [address] [id number] [place] [address]- 2767 Nov, 2014 [facility] [place] [facility] [address] [id number] [place] [address]- 2478 Nov, 2014 [facility] [place] [facility] [address] [facility] [id number] [place] [address]- 5504 Nov, 2014 [facility] [place] [facility] [address] [facility] [id number] [place] [address]- 5130 Nov, [facility] [place] [facility] [address] [id number] [place] [address]- 2782 Oct, [facility] [place] [facility] [address] [facility] [id number] [place] [address]- 3480 Oct, [facility] [place] [facility] [address] [facility] [id number] [place] [address] Oct, [facility] [place] [facility] [address] [id number] [address] Oct, [facility] [place] [facility] [address] [id number] [place] [address] Oct, [facility] [place] [facility] [address] [id number] [place] [address] Oct, [facility] [place] [facility] [address] [id number] [place] [address] Sep, [facility] [place] [facility] [address] [id number] [address] Sep, [facility] [place] [facility] [address] [id number] [place] [address] Sep, [facility] [place] [facility] [address] [id number] [place] [address] Sep, [facility] [place] [facility] [address] [id number] [place] [address] Sep, [facility] [place] [facility] [address] [id number] [place] [address] Sep, [facility] [place] [facility] [address] [id number] [place] [address] Sep, [facility] [place] [facility] [address] [id number] [place] [address] Sep, [facility] [place] [facility] [address] [id number] [place] [address] Sep, [facility] [place] [facility] [address] [id number] [place] [address] Sep, [facility] [place] [facility] [address] [id number] [place] [address] Aug, [facility] [place] [facility] [address] [id number] [place] [address] 18 Aug, 2014 [facility] [place] [facility] [address] [id number] [place] [address] 17 Aug, 2014 [facility] [place] [facility] [address] [id number] [place] [address] 17 Aug, 2014 [facility] [place] [facility] [address] [id number] [place] [address] 14 Aug, 2014 [facility] [place] [facility] [address] [id number] [place] [address] 14 Aug, 2014 [facility] [place] [facility] [address] [id number] [place] [address] 12 Aug, 2014 [facility] [place] [facility] [address] [id number] [place] [address] Aug, [facility] [place] [facility] [address] [id number] [place] [address] Jul, [facility] [place] [facility] [address] [id number] [place] [address] 6746 Jul, [facility] [place] [facility] [address] [id number] [place] [address] 1649 Jul, [facility] [place] [facility] [address] [id number] [place] [address] 0024 Jul, [facility] [place] [facility] [address] [id number] [place] [address] Jul, [facility] [place] [facility] [address] [id number] [place] [address] 4980 Jul, [facility] [place] [facility] [address] [id number] [place] [address] 2236 Jul, [facility] [place] [facility] [address] [id number] [place] [address] 7160 Jul, [facility] [place] [facility] [address] [id number] [place] [address]- 0989 24 Jun, 2014 [facility] [place] [facility] [address] [id number] [place] [address] 5811 24 Jun, 2014 [facility] [place] [facility] [address] [id number] [place] [address] 2541 23 Jun, 2013 [facility] [place] [facility] [address] [id number] [place] [address] 2548 23 Jun, 2013 [facility] [place] [facility] [address] [id number] [place] [address]- 254 23 Jun, 2013 [facility] [place] [facility] [address] [id number] [place] [address]- 2541 23 Jun, 2013 [facility] [place] [facility] [address] [id number] [place] [address]- 4604 22 Jun, 2013 [facility] [place] [facility] [address] [id number] [place] [address]- 3965 22 Jun, 2013 [facility] [place] [facility] [address] [id number] [place] [address]- 7777 Jun, 2013 [facility] [place] [facility] [address] [id number] [place] [address] 5904 Jun, 2013 [facility] [place] [facility] [address] [id number] [place] [address]- 6015 15 Jun, 2013 [facility] [place] [facility] [address] [id number] [place] [address]- 4658 15 Jun, 2014 [facility] [place] [facility] [address] [id number] [place] [address]- 5759 Jun, [facility] [place] [facility] [address] [id number] [place] [address]- 0604 Jun, [facility] [place] [facility] [address] [id number] [place] [address]- 1703 Jun, [facility] [place] [facility] [address] [id number] [place] [address]- 0751 Jun, [facility] [place] [facility] [address] [id number] [place] [address] 5132 May, [facility] [place] [facility] [address] [id number] [place] [address]- 2469 May, [facility] [place] [facility] [address] [id number] [place] [address]- 2124 May, [facility] [place] [facility] [address] [id number] [place] [address]- 2520 May, [facility] [place] [facility] [address] [id number] [place] [address]- 9897 May, [facility] [place] [facility] [address] [id number] [place] [address]- 2551 May, [facility] [place] [facility] [address] [id number] [place] [address]- 5843 May, [facility] [place] [facility] [address] [id number] [place] [address]- 5086 May, [facility] [place] [facility] [address] [id number] [place] [address]- 1782 May, [facility] [place] [facility] [address] [id number] [place] [address]- 3415 May, [facility] [place] [facility] [address] [id number] [place] [address]- 9006 May, [facility] [place] [facility] [address] [id number] [place] [address]- 8102 May, [facility] [place] [facility] [address] [id number] [place] [address]- 7519 May, [facility] [place] [facility] [address] [id number] [place] [address]- 7781 May, [facility] [place] [facility] [address] [id number] [place] [address]- 7549 May, [facility] [place] [facility] [address] [id number] [place] [address] 3791 Apr, [facility] [place] [facility] [address] [id number] [place] [address]- 8973 Apr, [facility] [place] [facility] [address] [id number] [place] [address]- 0381 Apr, [facility] [place] [facility] [address] [id number] [place] [address]- 9377 Apr, [facility] [place] [facility] [address] [id number] [place] [address]- 2329 Apr, [facility] [place] [facility] [address] [id number] [place] [address]- 0971 Apr, [facility] [place] [facility] [address] [id number] [place] [address]- 9152 Apr, [facility] [place] [facility] [address] [id number] [place] [address] 38[address] Apr, 2013 [facility] [place] [facility] [address] [id number] [place] [address]- 5352 Apr, [facility] [place] [facility] [address] [id number] [place] [address]- 3995 Apr, 2013 [facility] [place] [facility] [address] [id number] [place] [address]- 2263 Apr, [facility] [place] [facility] [address] [id number] [place] [address]- 6229 Apr, [facility] [place] [facility] [address] [id number] [place] [address]- 2858 Apr, [facility] [place] [facility] [address] [id number] [place] [address]- 3608 Apr, [facility] [place] [facility] [address] [id number] [place] [address]- 1802 Mar, [facility] [place] [facility] [address] [id number] [place] [address]- 1469 Mar, [facility] [place] [facility] [address] [id number] [place] [address]- 2567 Mar, [facility] [place] [facility] [address] [id number] [place] [address]- 1314 Mar, [facility] [place] [facility] [address] [id number] [place] [address]- 6146 Mar, [facility] [place] [facility] [address] [id number] [place] [address]- 0818 Mar, [facility] [place] [facility] [address] [id number] [place] [address]- 8407 Mar, [facility] [place] [facility] [address] [id number] [place] [address] Mar, [facility] [place] [facility] [address] [id number] [place] [address]- 7577 Mar, [facility] [address] [id number] [place] [address]- 2489 February, [facility] [place] [facility] [address] [id number] [place] [address]- 3934 February, [facility] [address] [id number] [place] [address]- 4394 February, [facility] [place] [facility] [address] [id number] [place] [address]- 5178 February, [facility] [address] [id number] [place] [address]- 5179 February, [facility] [place] [facility] [address] [id number] [place] [address]- 8462 February, [facility] [address] [id number] [place] [address]- 1093 February, [facility] [place] [facility] [address] [id number] [place] [address]- 5709 February, [facility] [place] [facility] [address] [id number] [place] [address]- 9585 February, [facility] [place] [facility] [address] [id number] [place] [address]- 1194 February, [facility] [place] [facility] [address] [id number] [place] [address]- 0331 February, [facility] [place] [facility] [address] [id number] [place] [address]- 9867 February, [facility] [place] [facility] [address] [id number] [place] [address]- 7305 February, [facility] [place] [facility] [address] [id number] [place] [address]- 0441 February, [facility] [place] [facility] [address] [id number] [place] [address]- 7806 February, [facility] [place] [facility] [address] [id number] [place] [address]- 1613 February, [facility] [address] [id number] [place] [address]- 9890 February, [facility] [place] [facility] [address] [id number] [place] [address]- 9404 February, [facility] [address] [id number] [place] [address]- 2781 February, [facility] [place] [facility] [address] [id number] [place] [address]- 8855 February, [facility] [address] [id number] [place] [address]- 5837 February, [facility] [address] [id number] [place] [address]- 1801 February, [facility] [address] [id number] [place] [address]- 3759 February, [facility] [address] [id number] [place] [address]- 4351 Jan, [facility] [place] [facility] [address] [id number] [place] [address]- 5221 Jan, [facility] [address] [id number] [place] [address]- 8125 Jan, [facility] [place] [facility] [address] [id number] [place] [address]- 5303 Jan, [facility] [place] [facility] [address] [id number] [place] [address]- 1309 Jan, [facility] [place] [facility] [address] [id number] [place] [address]- 6879 Jan, [facility] [place] [facility] [address] [id number] [place] [address]- 2625 Jan, [facility] [place] [facility] [address] [id number] [place] [address]- 7171 Jan, [facility] [place] [facility] [address] [id number] [place] [address]- 8903 Jan, [facility] [place] [facility] [address] [id number] [place] [address]- 1269 Jan, [facility] [place] [facility] [address] [id number] [place] [address]- 0523 Jan, [facility] [place] [facility] [address] [id number] [place] [address]- 7350 Jan, [facility] [place] [facility] [address] [id number] [place] [address]- 3072 Dec, [facility] [place] [facility] [address] [id number] [place] [address]- 6022 Dec, [facility] [place] [facility] [address] [id number] [place] [address]- 9572 Nov, [facility] [place] [facility] [address] [id number] [place] [address]- 0475 Nov, [facility] [place] [facility] [address] [id number] [place] [address]- 9482 Nov, [facility] [place] [facility] [address] [id number] [place] [address]- 3054 Nov, [facility] [place] [facility] [address] [id number] [place] [address]- 9488 Nov, [facility] [place] [facility] [address] [id number] [place] [address]- 8456 Nov, [facility] [place] [facility] [address] [id number] [place] [address]- 3938 Oct, [facility] [place] [facility] [address] [id number] [place] [address]- 6090 Oct, [facility] [place] [facility] [address] [id number] [place] [address]- 3905 Oct, [facility] [place] [facility] [address] [id number] [place] [address]- 7176 02 Oct, 2013 [facility] [address] [id number] [place] [address]- 3879 27 Sep, 2013 [facility] [address] [id number] [place] [address]- 3060 Sep, [facility] [address] [id number] [place] [address]- 3812 24 Sep, 2013 [facility] [place] [facility] [address] [id number] [place] [address]- 7179 24 Sep, 2013 [facility] [address] [id number] [place] [address]- 1832 18 Sep, 2013 [facility] [address] [id number] [place] [address]- 1356 18 Sep, 2013 [facility] [address] [id number] [place] [address]- 5419 17 Sep, 2013 [facility] [address] [id number] [place] [address]- 4417 17 Sep, 2013 [facility] [address] [id number] [place] [address]- 1137 Sep, [facility] [address] [id number] [place] [address]- 1385 Sep, [facility] [address] [id number] [place] [address]- 9551 11 Sep, 2013 [facility] [place] [facility] [address] [id number] [place] [address]- 2311 Sep, [facility] [place] [facility] [address] [id number] [place] [address]- 5590 02 Sep, 2013 [facility] [place] [facility] [address] [id number] [place] Sep, [facility] [place] [facility] [address] [id number] [place] [address]- 5241 06 Aug, 2013 [facility] [place] [facility] [address] [id number] [place] [address]- 3309 Aug, [facility] [place] [facility] [address] [id number] [place] [address]- 4480 Aug, [facility] [place] [facility] [address] [id number] [place] [address]- 8875 Aug, [facility] [place] [facility] [address] [id number] [place] [address]- 5748 Jul, [facility] [place] [facility] [address] [id number] [place] [address]- 6677 Jul, [facility] [place] [facility] [address] [id number] [place] [address]- 8531 Jul, [facility] [place] [facility] [address] [id number] [place] [address]- 8576 Jul, [facility] [place] [facility] [address] [id number] [place] [address]- 5691 Jun, [facility] [place] [facility] [address] [id number] [place] [address]- 7276 Jun, [facility] [place] [facility] [address] [id number] [place] [address]- 9650 Jun, [facility] [place] [facility] [address] [id number] [place] [address]- 0930 Jun, [facility] [place] [facility] [address] [id number] [place] [address]- 1139 May, [facility] [place] [facility] [address] [id number] [place] [address]- 2407 May, [facility] [place] [facility] [address] [id number] [place] [address]- 1280 May, [facility] [place] [facility] [address] [id number] [place] [address]- 8299 May, [facility] [place] [facility] [address] [id number] [place] [address]- 0866 May, [facility] [place] [facility] [address] [id number] [place] [address]- 2659 May, [facility] [place] [facility] [address] [id number] [place] [address]- 0861 May, [facility] [place] [facility] [address] [id number] [place] [address]- 2956 May, [facility] [place] [facility] [address] [id number] [place] [address]- 2484 May, [facility] [place] [facility] [address] [id number] [place] [address]- 0490 Apr, [facility] [place] [facility] [address] [id number] [place] [address]- 2355 Apr, [facility] [place] [facility] [address] [id number] [place] [address]- 4454 Apr, [facility] [place] [facility] [address] [id number] [place] [address]- 2916 Apr, [facility] [place] [facility] [address] [id number] [place] [address]- 0774 Apr, [facility] [place] [facility] [address] [id number] [place] [address]- 0858 Apr, [facility] [place] [facility] [address] [id number] [place] [address]- 8556 Apr, [facility] [place] [facility] [address] [id number] [place] [address]- 6590 Mar, [facility] [place] [facility] [address] [id number] [place] [address]- 7478 February, [facility] [place] [facility] [address] [id number] [place] [address]- 5592 February, [facility] [place] [facility] [address] [id number] [place] [address]- 6500 February, [facility] [place] [facility] [address] [id number] [place] [address]- 6089 February, [facility] [address] [id number] [place] [address]- 5573 February, [facility] [address] [id number] [place] [address]- 3878 Jan, [facility] [address] [id number] [place] [address]- 6949 Jan, [facility] [address] [id number] [place] [address]- 0661 Jan, [facility] [address] [id number] [place] [address]- 4235 Dec, [facility] [address] [id number] [place] [address]- 5757 Dec, [facility] [address] [id number] [place] [address]- 1162 Dec, [facility] [address] [id number] [place] [address]- 5571 Dec, [facility] [address] [id number] [place] [address]- 9387 Dec, [facility] [address] [id number] [place] [address]- 9102 Dec, [facility] [address] [id number] [place] [address]- 6908 Nov, [facility] [address] [id number] [place] [address]- 4610 Nov, [facility] [address] [id number] [place] 4820 19 Nov, 2012 [facility] [address] [id number] [place]36 14 Nov, 2012 [facility] [address] [id number] [place] [address]- 3383 Nov, [facility] [address] [id number] [place] [address]- 1017 Nov, [facility] [place] [facility] [address] [id number] [place] [address]- 0296 Oct, [facility] [place] [facility] [address] [id number] [place] [address]- 6142 Oct, [facility] [place] [facility] [address] [id number] [place] [address]- 5439 Oct, [facility] [place] [facility] [address] [id number] [place] [address]- 1238 Oct, [facility] [place] [facility] [address] [id number] [place] [address]- 6430 Oct, [facility] [place] [facility] [address] [id number] [place] [address]- 8357 Oct, [facility] [place] [facility] [address] [id number] [place] [address]- 2049 Sep, [facility] [place] [facility] [address] [id number] [place] [address]- 4298 Sep, [facility] [place] [facility] [address] [id number] [place] [address]- 0226 Sep, [facility] [place] [facility] [address] [id number] [address]- 9423 Sep, [facility] [place] [facility] [address] [id number], [place] [address]- 0108 Sep, [facility] [place] [facility] [address] [id number] [place] [address]- 9260 Sep, [facility] [place] [facility] [address] [id number] [place] [address]- 8112 Sep, [facility] [place] [facility] [address] [id number] [place] [address]- 8282 Sep, [facility] [place] [facility] [address] [id number] [place] [address]- 5169 Aug, [facility] [place] [facility] [address] [id number] [place] [address]- 4242 Aug, [facility] [place] [facility] [address] [id number] [place] [address]- 6686 Aug, [facility] [place] [facility] [address] [id number] [place] [address]- 4457 Aug, [facility] [place] [facility] [address] [id number] [place] [address]- 4547 Aug, [facility] [place] [facility] [address] [id number] [place] [address]- 1029 Aug, [facility] [place] [facility] [address] [id number] [place] [address]- 7653 Aug, [facility] [place] [facility] [address] [facility] [id number] [place] [address]- 0223 Aug, [facility] [place] [facility] [address] [id number] [place] [address] Jul, [facility] [place] [facility] [address] [id number] [place] [address] Jul, [facility] [place] [facility] [address] [facility] [id number] [place] [address] Jul, [facility] [place] [facility] [address] [id number] [place] [address] Jul, [facility] [place] [facility] [address] [id number], [place] [address] Jul, [facility] [place] [facility] [address] [id number] [place] [address] Jul, [facility] [place] [facility] [address] [facility] [id number] [place] [address] Jul, [facility] [place] [facility] [address] [id number] [place] [address] Jul, [facility] [place] [facility] [address] [id number] [place] [address] Jul, [facility] [address] [id number] [place] [address] 27 Jun, 2012 [facility] [address] [id number] [place] [address] Jun, [facility] [address] [id number] [place] [address] Jun, [facility] [address] [id number] [place] [address] 24 Jun, 2012 [facility] [address] [id number] [place] [address] Oct, [facility] [address] [id number] [place] [address] Aug, [facility] [address] [id number] [place] [address] Oct, [facility] [address] [id number] [place] [address] Sep, [facility] [address] [id number] [place] [address] 22 Sep, 2010 [facility] [address] [id number] [place] [address] 16 Sep, 2010 [facility] [address] [id number] [place] [address] 25[address] 13 Sep, 2010 [facility] [address] [id number] [place] [address]46 10 Sep, 2010 [facility] [place] [facility] [address] [id number] [place] [address] 10 Sep, 2010 [facility] [address] [id number] [place] [address] 10 Sep, 2010 [facility] [address] [id number] [address] 08 Sep, 2010 [facility] [address] [facility] [id number], [place] [address] 08 Sep, 2010 [facility] [address] [facility] [id number], [place] [address] Sep, [facility] [address] [facility] [id number], [place] [address] Aug, [facility] [address] [facility] [id number], [place] [address] Aug, [facility] [address] [facility] [id number], [place] [address] Jul, [facility] [address] [facility] [id number], [place] [address] Jan, [facility] [address] [facility] [id number], [place] [address] Dec, [facility] [address] [facility] [id number], [place] [address] Nov, [facility] [address] [facility] [id number], [place] [address] Sep, [facility] [address] [facility] [id number][place] [address] Sep, [facility] [address] [facility] [id number], [place] [address] Jul, [facility] [address] [facility] [id number], [place] [address] 16 Jul, 2009 [facility] [address] [facility] [id number], [place] [address] 15 Jul, 2009 [facility] [address] [facility] [id number] [address] 15 Jul, 2009 [facility] [address] [facility] [id number] [address] 13 Jul, 2009 IMMUNIZATIONS No Known Immunizations SOCIAL HISTORY Never Assessed REASON FOR VISIT sydnie PLAN OF CARE Activity Details Follow Up prn Reason:te when we receive med clearance VITAL SIGNS Blood pressure systolic 126 mmHg 2017-07-14 Blood pressure diastolic 78 mmHg 2017-07-14 MEDICATIONS Medication Instructions Dosage Frequency Start Date End Date Duration Status MetFORMIN HCl ER 500 MG Orally twice a day 2 tablet 12h Apr, Active Ibuprofen 600 MG Orally every 6 hrs 1 tablet 6h Dec, 30 day(s) Active Flonase 50 MCG/ACT Nasally Once a day 1 spray in each nostril 24h Mar, 30 day(s) Active Warfarin Sodium 6 MG Orally Once a day 1.5 tablet daily on M,T,TH,F,Sun and 1 Tablets on W, and Sat 24h 30 days Active Nexium 40 mg Orally Once a day 1 capsule 24h May, 30 day(s) Active Clindamycin HCl 150 MG Orally every 6 hrs 2 capsules 6h 7 days Active Nebulizer/Tubing/Mouthpiece ... as directed Dec, Active ProAir HFA 108MCG/A INHALE TWO PUFFS BY MOUTH EVERY 6 HOURS NEEDED FOR SHORTNESS OF BREATH OR COUGH 25 Active Magic Mouthwash Apply medicated swab to sore areas of the mouth to numb the pain As needed Dip cotton swab into medication Jun, As needed Active Albuterol Sulfate (2.5 MG/3ML) 0.083% Inhalation 2 times a day 3 ml 12h 07 Dec, 2015 Active Furosemide 40MG TAKE ONE TABLET BY MOUTH ONCE DAILY 90 Active Clindamycin HCl 300 MG Orally every 6 hrs 1 capsule 6h 10 days Active RESULTS No Results PROCEDURES Procedure Date Ordered Result Body Site LTD ORAL EVALUATION - PROBLEM FOCUS Jul 14, 2017 INTRAORL-PERIAPICAL 1 FILM [id number] Jul 14, 2017 BITEWING - SINGLE FILM Jul 14, 2017 INSTRUCTIONS MEDICATIONS ADMINISTERED No Known Medications MEDICAL [...]
--- OUTSIDE RECORDS SUMMARY | 2018-03-06 16:50 | XMS REPORT ---
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 Name Role Phone BHARAT MANCIA Unavailable PROBLEMS Type Condition ICD9-CM Code RTM24-ZH Code Onset Dates Condition Status SNOMED Code Problem Essential (primary) hypertension I10 Active 61663851 Problem Heart valve disorder I38 Active 092269 Problem Breast cancer screening Z12.39 Active 109895844 Problem Gastroesophageal reflux disease with esophagitis K21.0 Active 715613254 Problem Nocturnal hypoxia G47.34 Active 754883643 Problem Aortic valve stenosis, unspecified etiology I35.0 Active 82460587 Problem Essential hypertension I10 Active 35652155 Problem Stress incontinence N39.3 Active 56447487 Problem Hyperlipidemia, unspecified hyperlipidemia type E78.5 Active 44757650 Problem Hyperglycemia R73.9 Active 00652910 Problem COPD (chronic obstructive pulmonary disease) J44.9 Active 27929808 Problem Mixed stress and urge urinary incontinence N39.46 Active 456653053 Problem intermediate manager (current) use of anticoagulants Z79.01 Active 782056661 Problem Thyroid nodule, cold E04.1 Active 868780727 Problem Atherosclerotic heart disease of [place] coronary artery without angina pectoris I25.10 Active [id number] ALLERGIES No Information ENCOUNTERS Encounter Location Date Diagnosis [facility] [address] [facility] [id number] [id number] February, [facility] [id number] [place] [address] 81366- 3087 February, [facility] [id number] [place] [id number] February, [facility] [address] [address] February, USP (current) use of anticoagulants Z79.01 [facility] [address] [id number], [place] [address] February, [facility] [address], [place] [address] February, USP (current) use of anticoagulants Z79.01 [facility] [address], [place] [address] Jan, [facility] [place] [address] [id number] [place] [id number] Jan, [facility] [id number] [place] [address] 16626- 1450 Jan, Dental abscess K04.7 ; Dental caries K02.9 and Pain, dental K08.89 [facility] [address], [place] [address] Jan, Tooth abscess K04.7 [facility] [address], [place] [address] Jan, Medicare annual wellness visit, initial Z00.00 ; Encounter for immunization Z23 ; Dysuria R30.0 ; COPD (chronic obstructive pulmonary disease) J44.9 ; Essential (primary) hypertension I10 ; Breast cancer screening Z12.39 ; Aortic valve stenosis, unspecified etiology I35.0 ; Hyperlipidemia, unspecified hyperlipidemia type E78.5 ; Gastroesophageal reflux disease with esophagitis K21.0 ; USP (current) use of anticoagulants Z79.01 and Colon cancer screening Z12.11 [facility] [address] [id number], [place] [address] Jan, Dental infection K04.7 [facility] [id number] [place] [address] 69739- 6244 Jan, [facility] [address], [place] [address] Dec, Essential hypertension I10 and Atherosclerotic heart disease of [place] coronary artery without angina pectoris I25.10 [facility] [id number] [place] [address] 73932- 6598 Dec, [place] [address] 41589- 7884 Dec, Urinary tract infection, site not specified N39.0 [place] [address] 04281- 5042 14 Dec, 2017 Cough R05 ; Dysuria R30.0 ; intermediate manager (current) use of anticoagulants Z79.01 ; Atherosclerotic heart disease of [place] coronary artery without angina pectoris I25.10 and Urinary tract infection without hematuria, site unspecified N39.0 [facility] [place] [address] 8[address]16[address] 06 Dec, 2017 Seasonal allergic rhinitis, unspecified trigger J30.2 [place] [address] 58812- 8733 Nov, [place] [address] 52414- 6958 Nov, Mixed stress and urge urinary incontinence N39.46 [place] [address] 27211- 8784 Nov, [place] [id number] [place] [address] 15580- 6679 17 Nov, 2017 [facility] [place] [id number] [place] [address] 56897 -6571 13 Nov, 2017 Gastroesophageal reflux disease with esophagitis K21.0 [facility] [place] [id number] [place] [address] 35664 -0411 02 Nov, 2017 Upper respiratory infection, acute J06.9 and Post-nasal drainage R09.82 [place] [id number] [place] [address] 92347- 8158 Oct, COPD (chronic obstructive pulmonary disease) J44.9 and Nocturnal hypoxia G47.34 [place] [address] [place] [address]- 0656 Oct, [facility] [id number] [place] [address] 02396- 1435 Oct, Stress incontinence N39.3 ; COPD (chronic obstructive pulmonary disease) J44.9 and USP (current) use of anticoagulants Z79.01 [place] [id number] [place] [address] 87527- 2335 Oct, [place] [id number] [place] [address] 04883- 0235 Sep, Nasal congestion R09.81 [place] [address] 44261- 0716 Sep, [facility] [place] [id number] [place] [address] 23880 -0243 Aug, Other viral agents as the cause of diseases classified elsewhere B97.89 ; Acute upper respiratory infection, unspecified J06.9 and BMI 40.0-44.9, adult Z68.41 [place] [id number] [place] [address] 81462- 1288 Aug, Dysuria R30.0 ; Urinary tract infection, site not specified N39.0 ; Hematuria, unspecified R31.9 and Stress incontinence N39.3 [facility] [place] [address], [place] [address] Jul, Oral abscess K12.2 [place] [id number] [place] [address] 53945- 9294 Jul, [facility] [id number] [place] [address] 85072- 2905 Jul, [facility] [id number] [place] [address] [id number] Jun, 2017 Dental examination Z01.20 [facility] [place] [address] [id number] [place] [id number] Jun, [facility] [place] [address] [id number] [place] [id number] Jun, [facility] [place] [id number] [place] [address] 26777- 0278 May, Plantar fasciitis of right foot M72.2 [facility] [address], [place] [address] May, [facility] [id number] [place] [address] 10129 -5039 Apr, Acute upper respiratory infection, unspecified J06.9 and Seasonal allergic rhinitis, unspecified chronicity, unspecified trigger J30.2 [facility] [id number] [place] [address] 69075- 6751 Mar, Plantar fasciitis of right foot M72.2 and Bursitis of right foot M71.571 [facility] [id number] [place] [address] 07522 -9860 Mar, Acute seasonal allergic rhinitis, unspecified trigger J30.2 [facility] [id number] [place] [address] 25912 -6585 February, Acute upper respiratory infection, unspecified J06.9 [facility] [id number] [place] [address] 72687- 3048 February, [facility] [id number] [place] [address] 16526- 4231 February, [facility] [place] [id number] [place] [address] 53918- 5057 Jan, Right foot pain M79.671 and USP (current) use of anticoagulants Z79.[address] [facility] [id number] [place] [address] [id number] Jan, Dental caries K02.9 [facility] [id number] [place] [address] 35339- 6878 Jan, [facility] [id number] [place] [address] 11896- 3688 Jan, [place] [id number] [place] [address] 22422- 1656 Jan, intermediate manager (current) use of anticoagulants Z79.01 [place] [id number] [place] [address] 91704- 6446 Jan, [place] [address] 43930- 8681 Jan, Atherosclerotic heart disease of [place] coronary artery without angina pectoris I25.10 ; Aortic valve stenosis, unspecified etiology I35.0 ; Essential hypertension I10 and Hyperlipidemia, unspecified hyperlipidemia type E78.5 [place] [address] 81769- 2472 Jan, Dental examination Z01.20 [facility] [place] [address] 54674 -7260 Jan, Tooth abscess K04.7 and Abscess of mouth K12.2 [place] [id number] [place] [address] 10154- 4988 Dec, [place] [address] 08043- 5417 Dec, Cough R05 [place] [id number] [place] [address] 35474- 2652 Dec, [facility] [place] [id number] [place] [address] 23809 -2343 Dec, Dental abscess K04.7 [place] [id number] [place] [address] 44213- 0604 Nov, intermediate manager (current) use of anticoagulants Z79.01 and Hypokalemia E87.6 [place] [id number] [place] [address] 14312- 4194 16 Nov, 2016 intermediate manager (current) use of anticoagulants Z79.01 [place] [address] [place] [address]- 2205 16 Nov, 2016 USP (current) use of anticoagulants Z79.01 ; Hyperglycemia R73.9 ; Hypokalemia E87.6 and Heart valve disorder I38 [facility] [id number] [place] [address] 74649 -3554 08 Nov, 2016 Pain of right heel M79.671 [facility] [address] 51481- 9215 Sep, Back pain M54.9 [facility] [id number] [place] [address] 56363- 5875 Sep, [facility] [id number] [place] [address] 19975- 7925 Sep, Back pain M54.9 [facility] [id number] [place] [address] 86007- 1236 Aug, Nasal congestion R09.81 [facility] [id number] [place] [address] 00782- 8124 Aug, [facility] [id number] [place] [address] 79056 -9502 Aug, Acute non-recurrent frontal sinusitis J01.10 [facility] [id number] [place] [address] 94524- 9632 Jul, [facility] [place] [id number] [place] [address] 84107- 0649 Jul, [facility] [id number] [place] [address] 91500- 9412 Jun, [facility] [id number] [place] [address] 78158- 8922 Jun, [facility] [id number] [place] [address] 08795- 8716 May, [facility] [place] [id number] [place] [address] 00029- 5327 May, [facility] [address] [id number] [place] [address] May USP (current) use of anticoagulants Z79.01 [place] [id number] [place] [address] 99141- 0983 Apr, intermediate manager (current) use of anticoagulants Z79.01 [place] [address] 11894- 5612 Apr, [place] [id number] [place] [address] 59551- 2926 Apr, [place] [address] 92801- 6304 Apr, Hyperglycemia R73.9 and Breast cancer screening Z12.39 [place] [address] 76072- 5197 Mar, [facility] [id number] [place] [address] 07762 -3849 Mar, Left foot pain M79.672 [facility] [address] 60587 -9768 February, Dysuria R30.0 [place] [address] 03790- 7812 February, intermediate manager (current) use of anticoagulants Z79.01 [place] [id number] [place] [address] 75165- 1536 February, intermediate manager (current) use of anticoagulants Z79.01 [place] [id number] [place] [address] 07836- 1366 February, [place] [address] 39460- 3981 February, intermediate manager (current) use of anticoagulants Z79.01 [place] [address] 71077- 5880 February, intermediate manager (current) use of anticoagulants Z79.01 [facility] [id number] [place] [address] 14030- 8554 Jan, [facility] [id number] [place] [address] 35133- 7927 Jan, [facility] [address] 10935 -0110 Jan, Allergic rhinitis J30.9 ; Cough R05 and Stress incontinence N39.3 [place] [address] 59447- 0145 Jan, USP (current) use of anticoagulants Z79.01 [place] [address] 31528- 3950 Jan, USP (current) use of anticoagulants Z79.01 [place] [address] 88690- 3087 Dec, intermediate manager (current) use of anticoagulants Z79.01 ; Atherosclerotic heart disease of [place] coronary artery without angina pectoris I25.10 and Essential (primary) hypertension I10 [place] [id number] [place] [address] 72675- 8722 Dec, COPD (chronic obstructive pulmonary disease) J44.9 [place] [id number] [place] [address] 93104- 8977 Dec, [place] [address] 56682- 7060 Dec, [place] [address] 56410- 5223 Dec, Hyperglycemia R73.9 ; COPD (chronic obstructive pulmonary disease) J44.9 ; USP current use of anticoagulant therapy V58.61 and Back pain M54.9 [place] [id number] [place] [address] 08022- 5629 Nov, [facility] [address], [place] [address]- 5737 Nov, [facility] [id number] [place] [address] 36622- 4437 Oct, [facility] [place] [id number] [place] [address] 23178- 1040 Oct, [facility] [place] [id number] [place] [address] 58534- 8196 Oct, [facility] [id number] [place] [address] 10130 -1290 Sep, Bronchitis J40 [facility] [place] [id number] [place] [address] 06771- 8633 Sep, [facility] [place] [id number] [place] [address] 45873- 2267 Aug, [facility] [place] [id number] [place] [address] 14294- 7413 Aug, [facility] [place] [id number] [place] [address] 29513- 7690 Jul, [facility] [address] [place] [address] [id number] Jul, Encounter for dental examination Z01.20 [facility] [address], [place] [address]- 4979 Jul, Ear pain, right H92.01 ; High risk medication use Z79.899 and Back pain, unspecified back pain laterality, unspecified location M54.9 [facility] [id number] [place] [address] 53212- 2878 Jul, Meningitis contact Z20.89 [facility] [id number] [place] [address] 36937- 9140 Jul, [facility] [place] [id number] [place] [address] 42138- 6932 Jul, [facility] [place] [address] [facility] [id number], [place] [address]- 2987 Jul, [facility] [place] [address], [place] [address]- 2377 May, [facility] [address], [place] [address]- 3846 May, [facility] [id number] [place] [address] 11349- 5648 Apr, USP current use of anticoagulant therapy V58.61 ; CAD (coronary artery disease) 414.00 ; Constipation 564.00 and Back pain 724.5 [facility] [id number] [place] [address] 47957- 8676 Apr, [facility] [id number] [place] [address] 56274- 6998 Apr, [facility] [id number] [place] [address] 73091- 6225 Apr, intermediate manager current use of anticoagulant therapy V58.61 ; Constipation 564.00 ; Back pain 724.5 and CAD (coronary artery disease) 414.00 [facility] [address], [place] [address]- 8236 Apr, [facility] [address], [place] [address]- 0636 Mar, [facility] [address], [place] [address]- 6166 Mar, [facility] [address], [place] [address]- 9276 February, [facility] [address], [place] [address]- 4386 February, [facility] [address], [place] [address]- 2346 Jan, [facility] [id number] [place] [address] 87753- 5257 13 Jan, 2015 [facility] [place] [facility] [address] [id number] [place] [address]- 0255 Dec, [facility] [place] [facility] [address] [id number] [place] [address]- 0267 Dec, [facility] [place] [facility] [address] [id number] [place] [address]- 3561 Dec, [facility] [place] [facility] [address] [id number] [place] [address]- 2180 Dec, [facility] [place] [facility] [address] [id number] [place] [address]- 6748 Dec, [facility] [place] [facility] [address] [id number] [place] [address]- 7607 Dec, [facility] [place] [facility] [address] [id number] [place] [address]- 4347 Dec, [facility] [place] [facility] [address] [id number] [place] [address]- 7678 24 Dec, 2014 [facility] [place] [facility] [address] [id number] [place] [address]- 2675 Dec, [facility] [place] [facility] [address] [id number] [place] [address]- 5992 Dec, [facility] [place] [facility] [address] [id number] [place] [address]- 4430 17 Dec, 2014 [facility] [place] [facility] [address] [id number] [place] [address]- 2924 17 Dec, 2014 [facility] [place] [facility] [address] [id number] [place] [address]- 6385 16 Dec, 2014 [facility] [place] [facility] [address] [id number] [place]- 6916 16 Dec, 2014 [facility] [place] [facility] [address] [id number] [place] [address]- 1583 12 Dec, 2014 [facility] [place] [facility] [address] [id number] [place] [address]- 7014 12 Dec, 2014 [facility] [place] [facility] [address] [id number] [place] [address]- 6292 06 Dec, 2014 [facility] [place] [facility] [address] [id number] [place] [address]- 8188 06 Dec, 2014 [facility] [place] [facility] [address] [id number] [place] [address]- 0393 04 Dec, 2014 [facility] [place] [facility] [address] [id number] [place] [address]- 8589 Dec, 2014 [facility] [place] [facility] [address] [id number] [place] [address] Dec, 2014 [facility] [place] [facility] [address] [facility] [id number] [place] [address] Nov, 2014 [facility] [place] [facility] [address] [facility] [id number] [place] [address] Nov, 2014 [facility] [place] [facility] [address] [facility] [id number] [place] [address] Nov, [facility] [place] [facility] [address] [facility] [id number] [place] [address] Nov, [facility] [place] [facility] [address] [facility] [id number] [place] [address] Nov, [facility] [place] [facility] [address] [facility] [id number] [place] [address] Nov, 2014 [facility] [place] [facility] [address] [id number] [place] [address] Nov, [facility] [place] [facility] [address] [id number] [place] [address] Nov, 2014 [facility] [place] [facility] [address] [facility] [id number] [place] [address] Nov, 2014 [facility] [place] [facility] [address] [facility] [id number] [place] [address] Nov, 2014 [facility] [place] [facility] [address] [id number] [place] [address] Nov, 2014 [facility] [place] [facility] [address] [id number] [place] [address] Nov, 2014 [facility] [place] [facility] [address] [id number] [place] [address] Nov, 2014 [facility] [place] [facility] [address] [id number] [place] [address] Nov, 2014 [facility] [place] [facility] [address] [id number] [place] [address] Nov, 2014 [facility] [place] [facility] [address] [id number] [place] [address] Nov, 2014 [facility] [place] [facility] [address] [id number] [place] [address] Nov, 2014 [facility] [place] [facility] [address] [id number] [place] [address] 8673 Oct, [facility] [place] [facility] [address] [id number] [place] [address] 7[address] Oct, [facility] [place] [facility] [address] [facility] [id number] [place] [address] 6469 Oct, [facility] [place] [facility] [address] [id number] [place] [address] 3445 Oct, [facility] [place] [facility] [address] [id number], [place] [address] Oct, [facility] [place] [facility] [address] [id number] [place] [address]- 0850 Oct, [facility] [place] [facility] [address] [id number] [place] [address] Sep, [facility] [place] [facility] [address] [id number] [place] [address]- 8458 Sep, [facility] [place] [facility] [address] [id number] [place] [address]- 0795 Sep, [facility] [place] [facility] [address] [id number] [place] [address]- 2383 Sep, [facility] [place] [facility] [address] [id number] [place] [address]- 4504 Sep, [facility] [place] [facility] [address] [id number] [place] [address]- 0454 Sep, [facility] [place] [facility] [address] [id number] [place] [address]- 7972 Sep, [facility] [place] [facility] [address] [id number] [place] [address]- 4048 Sep, [facility] [place] [facility] [address] [id number] [place] [address]- 0621 Sep, [facility] [place] [facility] [address] [id number] [place] [address]- 6231 Sep, [facility] [place] [facility] [address] [id number] [place] [address]- 1673 Aug, [facility] [place] [facility] [address] [id number] [place] [address]- 8557 18 Aug, 2014 [facility] [place] [facility] [address] [id number] [place] [address]- 2085 17 Aug, 2014 [facility] [place] [facility] [address] [id number] [place] [address]- 0092 17 Aug, 2014 [facility] [place] [facility] [address] [id number] [place] [address]- 0706 14 Aug, 2014 [facility] [place] [facility] [address] [id number] [place] [address]- 2374 14 Aug, 2014 [facility] [place] [facility] [address] [id number] [place] [address]- 5550 12 Aug, 2014 [facility] [place] [facility] [address] [id number] [place] [address]- 4283 Aug, [facility] [place] [facility] [address] [id number] [place] [address]- 6641 Jul, [facility] [place] [facility] [address] [id number] [place] [address]- 2716 Jul, [facility] [place] [facility] [address] [id number] [place] [address]- 6488 Jul, [facility] [place] [facility] [address] [id number] [place] [address]- 9075 Jul, [facility] [place] [facility] [address] [id number] [place] [address]- 4964 Jul, [facility] [place] [facility] [address] [id number] [place] [address]- 2638 Jul, [facility] [place] [facility] [address] [id number] [place] [address]- 3521 Jul, [facility] [place] [facility] [address] [id number] [place] [address]- 3196 Jul, [facility] [place] [facility] [address] [id number] [place] [address]- 1475 24 Jun, 2014 [facility] [place] [facility] [address] [id number] [place] [address]- 7663 24 Jun, 2013 [facility] [place] [facility] [address] [id number] [place] [address]- 3481 23 Jun, 2013 [facility] [place] [facility] [address] [id number], [place] [address]- 2547 23 Sep, 2013 [facility] [place] [facility] [address] [id number] [place] [address]- 2223 23 Jun, 2013 [facility] [place] [facility] [address] [id number] [place] [address]- 8065 23 Jun, 2013 [facility] [place] [facility] [address] [id number] [place] [address]- 6549 22 Jun, 2013 [facility] [place] [facility] [address] [id number] [place] [address]- 0168 22 Jun, 2013 [facility] [place] [facility] [address] [id number] [place] [address]- 3236 22 Jun, 2013 [facility] [place] [facility] [address] [id number] [place] [address] 2540 22 Jun, 2013 [facility] [place] [facility] [address] [id number] [place] [address] 2546 15 Jun, 2013 [facility] [place] [facility] [address] [id number] [place] [address] 2542 15 Jun, 2013 [facility] [place] [facility] [address] [id number] [place] [address]- 4522 12 Jun, 2014 [facility] [place] [facility] [address] [id number] [place] [address]- 9112 Jun, [facility] [place] [facility] [address] [id number] [place] [address]- 4644 05 Jun, 2014 [facility] [place] [facility] [address] [id number] [place] [address]- 9805 Jun, [facility] [place] [facility] [address] [id number] [place] [address]- 5402 May, [facility] [place] [facility] [address] [id number] [place] [address]- 1792 May, [facility] [place] [facility] [address] [id number] [place] [address]- 2823 May, [facility] [place] [facility] [address] [id number] [place] [address]- 5252 May, [facility] [place] [facility] [address] [id number] [place] [address]- 6062 May, [facility] [place] [facility] [address] [id number] [place] [address]- 8247 May, [facility] [place] [facility] [address] [id number] [place] [address]- 1303 May, [facility] [place] [facility] [address] [id number] [place] [address]- 8074 May, [facility] [place] [facility] [address] [id number] [place] [address]- 3355 May, [facility] [place] [facility] [address] [id number] [place] [address]- 2023 May, [facility] [place] [facility] [address] [id number] [place] [address] 1975 May, [facility] [place] [facility] [address] [id number] [place] [address]- 9063 May, [facility] [place] [facility] [address] [id number] [place] [address]- 7512 May, [facility] [place] [facility] [address] [id number] [place] [address]- 1978 May, [facility] [place] [facility] [address] [id number] [place] [address]- 8369 May, [facility] [place] [facility] [address] [id number] [place] [address]- 9674 Apr, [facility] [place] [facility] [address] [id number] [place] [address]- 3207 Apr, [facility] [place] [facility] [address] [id number] [place] [address]- 9421 Apr, [facility] [place] [facility] [address] [id number] [place] [address]- 8255 Apr, [facility] [place] [facility] [address] [id number] [place] [address]- 8456 Apr, [facility] [place] [facility] [address] [id number] [place] [address]- 6046 Apr, [facility] [place] [facility] [address] [id number] [place] [address]- 0335 Apr, [facility] [place] [facility] [address] [id number] [place] [address]- 8275 Apr, [facility] [place] [facility] [address] [id number] [place] [address]- 8044 Apr, [facility] [place] [facility] [address] [id number] [place] [address]- 6610 Apr, [facility] [place] [facility] [address] [id number] [place] [address]- 8503 Apr, [facility] [place] [facility] [address] [id number] [place] [address]- 7015 Apr, [facility] [place] [facility] [address] [id number] [place] [address]- 2571 Apr, [facility] [place] [facility] [address] [id number] [place] [address]- 9606 Apr, [facility] [place] [facility] [address] [id number] [place] [address]- 1701 Mar, [facility] [place] [facility] [address] [id number] [place] [address]- 6390 Mar, [facility] [place] [facility] [address] [id number] [place] [address]- 3594 Mar, [facility] [place] [facility] [address] [id number] [place] [address]- 5454 Mar, [facility] [place] [facility] [address] [id number] [place] [address]- 3098 Mar, [facility] [place] [facility] [address] [id number] [place] [address]- 8841 Mar, [facility] [place] [facility] [address] [id number] [place] [address]- 4773 Mar, [facility] [place] [facility] [address] [id number] [place] [address]- 3583 Mar, [facility] [place] [facility] [address] [id number] [place] [address]- 0953 Mar, [facility] [place] [facility] [address] [id number] [place] [address]- 7760 February, [facility] [address] [id number] [place] [address]- 6543 February, [facility] [address] [id number] [place] [address]- 1611 February, [facility] [address] [id number] [place] [address]- 1707 February, [facility] [address] [id number] [place] [address]- 6816 February, [facility] [address] [id number] [place] [address]- 2122 February, [facility] [address] [id number] [place] [address]- 3109 February, [facility] [address] [id number] [place] [address]- 2458 February, [facility] [address] [id number] [place] [address]- 6762 February, [facility] [address] [id number] [place] [address]- 0321 February, [facility] [address] [id number] [place] [address]- 8621 February, [facility] [address] [id number] [place] [address]- 6336 February, [facility] [place] [facility] [address] [id number] [place] [address]- 2512 February, [facility] [place] [facility] [address] [id number] [place] [address]- 0085 February, [facility] [address] [id number] [place] [address] February, [facility] [address] [id number] [place] [address]- 9792 February, [facility] [place] [facility] [address] [id number] [place] [address]- 9389 February, [facility] [place] [facility] [address] [id number] [place] [address]- 7607 February, [facility] [place] [facility] [address] [id number] [place] [address]- 6068 February, [facility] [place] [facility] [address] [id number] [place] [address]- 3925 February, [facility] [place] [facility] [address] [id number] [place] [address]- 1174 February, [facility] [place] [facility] [address] [id number] [place] [address]- 7241 February, [facility] [place] [facility] [address] [id number] [place] [address]- 3157 February, [facility] [place] [facility] [address] [id number] [place] [address]- 2122 Jan, [facility] [place] [facility] [address] [id number] [place] [address]- 5109 Jan, [facility] [place] [facility] [address] [id number] [place] [address]- 9355 Jan, [facility] [place] [facility] [address] [id number] [place] [address]- 5140 Jan, [facility] [place] [facility] [address] [id number] [place] [address]- 5228 Jan, [facility] [place] [facility] [address] [id number] [place] [address]- 6399 Jan, [facility] [place] [facility] [address] [id number] [place] [address]- 1288 Jan, [facility] [place] [facility] [address] [id number] [place] [address]- 4190 Jan, [facility] [place] [facility] [address] [id number] [place] [address]- 8881 08 Jan, 2014 [facility] [place] [facility] [address] [id number] [place] [address]- 6728 Jan, [facility] [place] [facility] [address] [id number] [place] [address]- 7326 Jan, [facility] [place] [facility] [address] [id number] [place] [address]- 1438 Jan, [facility] [place] [facility] [address] [id number] [place] [address]- 7597 Dec, [facility] [place] [facility] [address] [id number] [place] [address]- 4023 Dec, [facility] [place] [facility] [address] [id number] [place] [address]- 7397 Nov, [facility] [place] [facility] [address] [id number] [place] [address]- 5974 Nov, [facility] [place] [facility] [address] [id number] [place] [address]- 5075 Nov, [facility] [place] [facility] [address] [id number] [place] [address]- 2203 Nov, [facility] [place] [facility] [address] [id number] [place] [address]- 9859 Nov, [facility] [place] [facility] [address] [id number] [place] [address]- 5551 Nov, [facility] [place] [facility] [address] [id number] [place] [address]- 2376 Oct, [facility] [place] [facility] [address] [id number] [place] [address]- 8055 Oct, [facility] [place] [facility] [address] [id number] [place] [address]- 8771 Oct, [facility] [place] [facility] [address] [id number], [place] [address]- 6786 Oct, [facility] [address] [id number] [place] [address]- 2707 Sep, [facility] [place] [facility] [address] [id number] [place] [address]997 Sep, [facility] [address] [id number] [place] [address]- 5255 Sep, [facility] [place] [facility] [address] [id number] [place] [address]- 9378 Sep, [facility] [address] [id number] [place] [address]- 8980 Sep, [facility] [address] [id number] [place] [address]- 2783 Sep, [facility] [address] [id number] [place] [address]- 0019 Sep, [facility] [place] [facility] [address] [id number] [place] [address]- 2012 Sep, [facility] [address] [id number] [place] [address]- 7942 Sep, [facility] [place] [facility] [address] [id number] [place] [address]- 5725 Sep, [facility] [place] [facility] [address] [id number] [place] [address]- 0436 Sep, [facility] [place] [facility] [address] [id number], [place] [address]- 9165 Sep, [facility] [place] [facility] [address] [id number] [place] [address]- 0642 Sep, [facility] [place] [facility] [address] [id number] [place] [address]- 7048 Sep, [facility] [place] [facility] [address] [id number] [place] [address]- 2764 Aug, [facility] [place] [facility] [address] [id number] [place] [address]- 7069 Aug, [facility] [place] [facility] [address] [id number] [place] [address]- 0291 Aug, [facility] [place] [facility] [address] [id number] [place] [address]- 1749 Aug, [facility] [place] [facility] [address] [id number] [place] [address]- 2862 Jul, [facility] [place] [facility] [address] [id number] [place] [address]- 7422 Jul, [facility] [place] [facility] [address] [id number] [place] [address]- 5640 Jul, [facility] [place] [facility] [address] [id number] [place] [address]- 9944 Jul, [facility] [place] [facility] [address] [id number] [place] [address]- 4479 27 Jun, 2013 [facility] [place] [facility] [address] [id number] [place] [address]- 7882 18 Jun, 2013 [facility] [place] [facility] [address] [id number] [place] [address]- 8552 11 Jun, 2013 [facility] [place] [facility] [address] [id number] [place] [address]- 4040 03 Jun, 2013 [facility] [place] [facility] [address] [id number] [place] [address]- 7064 30 May, 2013 [facility] [place] [facility] [address] [id number] [place] [address]- 2540 May, [facility] [place] [facility] [address] [id number] [place] [address]- 0338 May, [facility] [place] [facility] [address] [id number] [place] [address]- 6774 May, [facility] [place] [facility] [address] [id number] [place] [address]- 4682 May, [facility] [address] [id number] [place] [address]- 0984 May, [facility] [place] [facility] [address] [id number] [place] [address]- 8046 May, [facility] [place] [facility] [address] [id number] [place] [address]- 5195 May, [facility] [place] [facility] [address] [id number] [place] [address]- 2666 May, [facility] [place] [facility] [address] [id number] [place] [address]- 1234 Apr, [facility] [place] [facility] [address] [id number] [place] [address]- 6556 Apr, [facility] [place] [facility] [address] [id number] [place] [address]- 3483 Apr, [facility] [place] [facility] [address] [id number] [place] [address]- 7955 Apr, [facility] [place] [facility] [address] [id number] [place] [address]- 6108 Apr, [facility] [place] [facility] [address] [id number] [place] [address]- 0228 Apr, [facility] [place] [facility] [address] [id number] [place] [address]- 6231 Apr, [facility] [place] [facility] [address] [id number] [place] [address]- 5485 Mar, [facility] [place] [facility] [address] [id number] [place] [address]- 2824 February, [facility] [place] [facility] [address] [id number] [place] [address]- 7006 February, [facility] [place] [facility] [address] [id number] [place] [address]- 6309 February, [facility] [place] [facility] [address] [id number] [place] [address]- 0708 February, [facility] [address] [id number] [place] [address]- 1066 February, [facility] [address] [id number] [place] [address]- 6515 Jan, [facility] [address] [id number] [place] [address]- 0626 Jan, [facility] [address] [id number] [place] [address]- 9933 Jan, [facility] [address] [id number] [place] [address]- 3132 Dec, [facility] [address] [id number] [place] [address]- 7101 Dec, [facility] [address] [facility] [id number] [place] [address]- 0298 Dec, [facility] [address] [id number] [place] [address]- 5645 Dec, [facility] [address] [id number] [place] [address]- 8956 Dec, [facility] [address] [facility] [id number] [place] [address]- 7211 Dec, [facility] [address] [id number] [place] [address]- 7694 Nov, [facility] [address] [id number] [place] [address]- 6278 Nov, [facility] [address] [id number] [place] [address] Nov, [facility] [address] [id number] [place] [address] 14 Nov, 2012 [facility] [address] [facility] [id number], [place] [address] 04 Nov, 2012 [facility] [address] [id number] [place] [address] Nov, [facility] [address] [id number] [place] [address] Oct, [facility] [address] [id number] [place] [address] Oct, [facility] [address] [id number] [place] [address] Oct, [facility] [address] [id number] [place] [address] Oct, [facility] [address] [id number] [place] [address] Oct, [facility] [address] [id number] [place] [address] Oct, [facility] [address] [id number] [place] [address] Sep, [facility] [address] [id number] [place] [address] Sep, [facility] [address] [id number] [place] [address] Sep, [facility] [address] [id number] [place] [address] Sep, [facility] [address] [id number] [place] [address] Sep, [facility] [address] [id number] [place] [address] Sep, [facility] [place] [facility] [address] [id number] [place] [address] Sep, [facility] [address] [id number] [place] [address] Sep, [facility] [address] [id number], [place] [address] Aug, [facility] [place] [facility] [address] [id number] [place] [address] Aug, [facility] [place] [facility] [address] [id number], [place] [address] Aug, [facility] [place] [facility] [address] [id number] [place] [address] Aug, [facility] [place] [facility] [address] [id number], [place] [address] Aug, [facility] [place] [facility] [address] [id number] [place] [address] Aug, [facility] [place] [facility] [address] [id number] [place] [address] Aug, [facility] [place] [facility] [address] [id number], [place] [address] Aug, [facility] [place] [facility] [address] [id number], [place] [address] Jul, [facility] [place] [facility] [address] [id number], [place] [address] Jul, [facility] [place] [facility] [address] [id number], [place] [address] Jul, [facility] [place] [facility] [address] [id number], [place] [address] Jul, [facility] [place] [facility] [address] [id number], [place] [address] Jul, [facility] [place] [facility] [address] [id number], [place] [address] Jul, [facility] [place] [facility] [address] [facility] [id number], [place] [address] Jul, [facility] [place] [facility] [address] [id number], [place] [address] Jul, [facility] [place] [facility] [address] [id number] [place] [address]- [address] Jul, [facility] [address] [id number] [place] [address]- [address] 27 Jun, 2012 [facility] [address] [id number] [place] [address]46 26 Jun, 2012 [facility] [address] [id number] [place] [address] 2546 25 Jun, 2012 [facility] [address] [id number] [place] [address] 2540 24 Jun, 2012 [facility] [address] [id number] [place] [address]646 Oct, [facility] [address] [id number] [place] [address] 1386 Aug, [facility] [address] [id number] [place] [address]67 Oct, [facility] [address] [id number] [place] [address]- [address]6 23 Sep, 2010 [facility] [address] [id number] [place] [address] 2541 22 Sep, 2010 [facility] [address] [id number] [place] [address]- [address] 16 Sep, 2010 [facility] [address] [id number] [place] [address] 2546 13 Sep, 2010 [facility] [address] [id number] [place] [address] 2546 10 Sep, 2010 [facility] [address] [id number] [place] [address] 2546 10 Sep, 2010 [facility] [address] [id number] [place] [address]- [address]46 10 Sep, 2010 [facility] [address] [id number] [place] [address]- [address] 08 Sep, 2010 [facility] [address] [id number], [place] [address] 08 Sep, 2010 [facility] [address] [id number], [place] [address] Sep, [facility] [address] [facility] [id number], [place] [address] Aug, [facility] [address] [id number], [place] [address]07 Aug, [facility] [address] [id number], [place] [address] Jul, [facility] [address] [facility] [id number], [place] [address] Jan, [facility] [address] [facility] [id number], [place] [address]- [address] Dec, [facility] [address] [facility] [id number], [place] [address] Nov, [facility] [address] [facility] [id number], [place] [address]- [address]99 Sep, [facility] [facility] [address] [facility] [id number], [place] [address] Sep, [facility] [place], [facility] [address] [facility] [id number], [place] [address] Jul, [facility] [place], [facility] [address] [facility] [id number], [place] [address] 16 Jul, 2009 [facility] [place] [address] [facility] [id number], [place] [address] 15 Jul, 2009 [facility] [place], [facility] [address] [facility] [id number][place] [address] 15 Jul, 2009 [facility] [place] [address] [facility] [id number][place] [id number] 13 Jul, 2009 IMMUNIZATIONS No Known Immunizations SOCIAL HISTORY Never Assessed REASON FOR VISIT Order Request PLAN OF CARE VITAL SIGNS MEDICATIONS Unknown [...]
--- OUTSIDE RECORDS SUMMARY | 2018-03-06 16:52 | XMS REPORT ---
Author Author MAGDALENA NEGRO [facility] [place] Address [address] [place] [address] Care Team Providers Care Natural Resource Officer Name Role Phone NEGROMAGDALENA Unavailable PROBLEMS Type Condition ICD9-CM Code KZZ15-BF Code Onset Dates Condition Status SNOMED Code Problem Essential (primary) hypertension I10 Active 91961200 Problem Heart valve disorder I38 Active 500717 Problem Breast cancer screening Z12.39 Active 983629368 Problem Gastroesophageal reflux disease with esophagitis K21.0 Active 216338695 Problem Nocturnal hypoxia G47.34 Active 081860167 Problem Aortic valve stenosis, unspecified etiology I35.0 Active 15170278 Problem Essential hypertension I10 Active 63352124 Problem Stress incontinence N39.3 Active 08679335 Problem Hyperlipidemia, unspecified hyperlipidemia type E78.5 Active 04475835 Problem Hyperglycemia R73.9 Active 64884569 Problem COPD (chronic obstructive pulmonary disease) J44.9 Active 79599753 Problem Mixed stress and urge urinary incontinence N39.46 Active 316996320 Problem correction (current) use of anticoagulants Z79.01 Active 496918052 Problem Thyroid nodule, cold E04.1 Active 421370967 Problem 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 [address] [facility] [id number] [place] [address] Jan, [facility] [address] [facility] [id number] [place] [id number] Jan, [facility] [address] [facility] [id number] [place] [address] Jan, Dental abscess K04.7 ; Dental caries K02.9 and Pain, dental K08.89 [facility] [id number] [place] [address] 76837 -9862 Jan, Tooth abscess K04.7 [place] [id number] [place] [address] 21355- 9778 Jan, Medicare annual wellness visit, initial Z00.00 ; Encounter for immunization Z23 ; Dysuria R30.0 ; COPD (chronic obstructive pulmonary disease) J44.9 ; Essential (primary) hypertension I10 ; Breast cancer screening Z12.39 ; Aortic valve stenosis, unspecified etiology I35.0 ; Hyperlipidemia, unspecified hyperlipidemia type E78.5 ; Gastroesophageal reflux disease with esophagitis K21.0 ; correction (current) use of anticoagulants Z79.01 and Colon cancer screening Z12.11 [facility] [place] [id number] [place] [address] 27051 -7213 05 Jan, 2018 Dental infection K04.7 [place] [address] 11844- 7553 Jan, [place] [address] 09006- 2931 Dec, Essential hypertension I10 and 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 [id number] [place] [address] 85137 -2674 Dec, Seasonal allergic rhinitis, unspecified trigger J30.2 [place] [address] 63263- 2379 Nov, [place] [address] 55730- 7339 Nov, Mixed stress and urge urinary incontinence N39.46 [place] [address] 93404- 6251 Nov, [place] [address] 25782- 7555 Nov, [facility] [place] [address] 20574 -6292 Nov, Gastroesophageal reflux disease with esophagitis K21.0 [facility] [place] [address] 80427 -4339 Nov, Upper respiratory infection, acute J06.9 and Post-nasal drainage R09.82 [place] [address] 49598- 3001 Oct, COPD (chronic obstructive pulmonary disease) J44.9 and Nocturnal hypoxia G47.34 [place] [address] 62812- 7735 Oct, [place] [address] 33970- 5261 Oct, Stress incontinence N39.3 ; COPD (chronic obstructive pulmonary disease) J44.9 and correction (current) use of anticoagulants Z79.01 [place] [id number] [place] [address] 91019- 3819 Oct, [place] [address] 41071- 9298 Sep, Nasal congestion R09.81 [place] [address] 94257- 1597 Sep, [facility] [place] [address] [address] Aug, Other viral agents as the cause of diseases classified elsewhere B97.89 ; Acute upper respiratory infection, unspecified J06.9 and BMI 40.0-44.9, adult Z68.41 [place] [id number] [place] [address] 27016- 5273 Aug, Dysuria R30.0 ; Urinary tract infection, site not specified N39.0 ; Hematuria, unspecified R31.9 and Stress incontinence N39.3 [facility] [place] [id number] [place] [address] 11020 -5917 Jul, Oral abscess K12.2 [place] [id number] [place] [address] 56703- 6843 Jul, [place] [id number] [place] [address] 51756- 0097 Jul, [facility] [id number] [place] [address] [id number] Jun, Dental examination Z01.20 [facility] [place] [address] [id number] [place] [id number] Jun, [facility] [place] [address] [facility] [address] [id number] [place] [id number] Jun, [place] [address] [place] [address] 97838- 1056 May, Plantar fasciitis of right foot M72.2 [place] [id number] [place] [address] 36620- 8393 May, [facility] [id number] [place] [address] 87134 -4706 Apr, Acute upper respiratory infection, unspecified J06.9 and Seasonal allergic rhinitis, unspecified chronicity, unspecified trigger J30.2 [place] [id number] [place] [address] 54907- 7082 Mar, Plantar fasciitis of right foot M72.2 and Bursitis of right foot M71.571 [facility] [id number] [place] [address] 50504 -7734 Mar, Acute seasonal allergic rhinitis, unspecified trigger J30.2 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 [facility] [address] [id number] Jan, Dental caries K02.9 [place] [address] 50325- 4744 Jan, [place] [address] 84660- 4081 Jan, [place] [id number] [place] [address] 15560- 2636 Jan, 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 [id number] [place] [address] 01448 -7982 Jan, Tooth abscess K04.7 and Abscess of mouth K12.2 [facility] [address] 24865- 0556 29 Dec, 2016 [place] [address] 00971- 2410 13 Dec, 2016 Cough R05 [place] [address] 98809- 7180 10 Dec, 2016 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 [address] 48919 -9275 08 Nov, 2016 Pain of right heel M79.671 [place] [address] 04017- 3461 Sep, Back pain M54.9 [place] [address] 09732- 5325 Sep, [place] [address] 45451- 3719 Sep, Back pain M54.9 [facility] [address] [address] Aug, Nasal congestion R09.81 [facility] [address] [address] 8[address] Aug, [facility] [address] [place] [address] 22892 -4464 Aug, Acute non-recurrent frontal sinusitis J01.10 [facility] [address] [address] 9608 Jul, [facility] [id number] [place] [address] 44955- 4664 Jul, [facility] [address] [place] [address] 02492- 4135 Jun, [facility] [address] [place] [address] 29504- 2406 Jun, [facility] [address] [address] 0152 May, [facility] [address] [place] [address] 26136- 6553 May, [address] [id number] [place] [address] May correction (current) use of anticoagulants Z79.01 [facility] [address] [address] 3065 Apr, correction (current) use of anticoagulants Z79.01 [facility] [address] [address] 5066 Apr, [facility] [address] [address] 2546 Apr, [facility] [address] [place] [address] 33095- 2080 Apr, Hyperglycemia R73.9 and Breast cancer screening Z12.39 [facility] [id number] [place] [address] 02840- 3601 Mar, [facility] [id number] [place] [address] 88289 -4631 07 Mar, 2016 Left foot pain M79.672 [facility] [id number] [place] [address] 15936 -7691 February, Dysuria R30.0 [facility] [address] 42621- 0749 February, 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 [place] [id number] [place] [address] 74259- 8635 February, 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 [place] [id number] [place] [address] 37695- 5593 February, [facility] [id number] [place] [address] 03232- 0392 February, correction (current) use of anticoagulants Z79.01 [place] [id number] [place] [address] 70372- 2613 February, 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 [place] [id number] [place] [address] 45448- 8229 Jan, [facility] [id number] [place] [address] 11026- 0610 Jan, [facility] [id number] [place] [address] 99982 -1351 14 Jan, 2016 Allergic rhinitis J30.9 ; Cough R05 and Stress incontinence N39.3 [facility] [id number] [place] [address] 79691- 1480 Jan, correction (current) use of anticoagulants Z79.01 [facility] [id number] [place] [address] 30942- 3967 07 Jan, 2016 correction (current) use of anticoagulants Z79.01 [facility] [address] 21889- 2561 29 Dec, 2015 correction (current) use of anticoagulants Z79.01 ; 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 and Essential (primary) hypertension I10 [facility] [address] 41761- 3354 Dec, COPD (chronic obstructive pulmonary disease) J44.9 [place] [address] 22610- 1682 Dec, [place] [address] 61374- 3618 Dec, [place] [address] 18335- 5410 Dec, Hyperglycemia R73.9 ; COPD (chronic obstructive pulmonary disease) J44.9 ; correction current use of anticoagulant therapy V58.61 and Back pain M54.9 [facility] [address] 64552- 4006 Nov, [place] [address] 16834- 6400 Nov, [facility] [address] 08743- 4280 Oct, [facility] [address] 45455- 9124 Oct, [facility] [address] 85407- 4226 Oct, [facility] [id number] [place] [address] 27368 -5634 Sep, Bronchitis J40 [facility] [address] 35294- 3096 Sep, [facility] [id number] [place] [address] 08144- 7696 Aug, [facility] [id number] [place] [address] 95965- 7226 Aug, [facility] [id number] [place] [address] 16570- 1276 Jul, [facility] [id number] [place] [address] [id number] Jul, Encounter for dental examination Z01.20 [facility] [id number] [place] [address] 26754- 4961 Jul, Ear pain, right H92.01 ; High risk medication use Z79.899 and Back pain, unspecified back pain laterality, unspecified location M54.9 [facility] [id number] [place] [address] 55581- 5188 Jul, Meningitis contact Z20.89 [facility] [id number] [place] [address] 80318- 8604 Jul, [facility] [id number] [place] [address] 88886- 9524 Jul, [facility] [id number] [place] [address] 32053- 4886 Jul, [facility] [id number] [place] [address] 14562- 9448 May, [facility] [id number] [place] [address] 71684- 8416 May, [facility] [id number] [place] [address] 57849- 3163 Apr, 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 V58.61 ; CAD (coronary artery disease) 414.00 ; Constipation 564.00 and Back pain 724.5 [facility] [id number] [place] [address] 43254- 3969 Apr, [facility] [address] [facility] [id number] [place] [address]- 8702 Apr, [facility] [address] [address]- 8426 Apr, 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 V58.61 ; Constipation 564.00 ; Back pain 724.5 and CAD (coronary artery disease) 414.00 [facility] [address] [facility] [id number] [place] [address]- 9659 Apr, [facility] [address] [facility] [id number] [place] [address]- 9434 Mar, [facility] [id number] [address]- 6981 Mar, [facility] [id number] [address]- 7835 February, [facility] [address] [address]- 2881 February, [facility] [address] [address]- 3893 Jan, [facility] [address] [address] 1988 Jan, [facility] [address] [address]- 9806 Dec, [facility] [address] [facility] [id number] [place] [address]- 1660 Dec, [facility] [address] [facility] [id number] [place] [address]- 6452 Dec, [facility] [address] [address] 6220 Dec, [facility] [address] [id number] [address]- 4163 Dec, [facility] [address] [facility] [id number] [place] [address]- 8655 26 Dec, 2014 [facility] [place] [facility] [address] [id number] [place] [address]- 5765 24 Dec, 2014 [facility] [place] [facility] [address] [id number] [place] [address]- 0564 24 Dec, 2014 [facility] [place] [facility] [address] [id number] [place] [address]- 1612 Dec, [facility] [place] [facility] [address] [id number] [place] [address]- 8117 Dec, [facility] [place] [facility] [address] [id number] [place] [address]- 9104 Dec, [facility] [place] [facility] [address] [id number] [place] [address]- 7770 Dec, [facility] [place] [facility] [address] [id number] [place] [address]- 2014 16 Dec, 2014 [facility] [place] [facility] [address] [id number] [place] [address]- 4344 16 Dec, 2014 [facility] [place] [facility] [address] [id number] [place] [address]- 1506 Dec, [facility] [place] [facility] [address] [id number] [place] [address]- 6863 Dec, [facility] [place] [facility] [address] [id number] [place] [address]- 8169 06 Dec, 2014 [facility] [place] [facility] [address] [id number] [place] [address]- 9797 Dec, 2014 [facility] [place] [facility] [address] [id number] [place] [address]- 5861 04 Dec, 2014 [facility] [place] [facility] [address] [id number] [place] [address]- 9711 Dec, 2014 [facility] [place] [facility] [address] [id number] [place] [address]- 3371 Dec, [facility] [place] [facility] [address] [id number] [place] [address]- 6315 Nov, 2014 [facility] [place] [facility] [address] [id number] [place] [address]- 7286 Nov, 2014 [facility] [place] [facility] [address] [facility] [id number] [place] [address]- 1706 Nov, 2014 [facility] [place] [facility] [address] [facility] [id number] [place] [address]- 2544 Nov, 2014 [facility] [place] [facility] [address] [id number] [place] [address]- 6492 Nov, 2014 [facility] [place] [facility] [address] [facility] [id number] [place] [address]- 6954 Nov, 2014 [facility] [place] [facility] [address] [facility] [id number] [place] [address]- 4478 Nov, 2014 [facility] [place] [facility] [address] [facility] [id number] [place] [address]- 1469 18 Nov, 2014 [facility] [place] [facility] [address] [facility] [id number] [place] [address]- 5151 Nov, 2014 [facility] [place] [facility] [address] [facility] [id number] [place] [address]- 7912 18 Nov, 2014 [facility] [place] [facility] [address] [facility] [id number] [place] [address]- 6893 18 Nov, 2014 [facility] [place] [facility] [address] [facility] [id number] [place] [address]- 2547 18 Nov, 2014 [facility] [place] [facility] [address] [facility] [id number] [place] [address]- 9575 18 Nov, 2014 [facility] [place] [facility] [address] [facility] [id number] [place] [address]- 3528 16 Nov, 2014 [facility] [place] [facility] [address] [facility] [id number] [place] [address]- 7335 16 Nov, 2014 [facility] [place] [facility] [address] [id number] [place] [address]- 6364 Nov, [facility] [place] [facility] [address] [id number] [place] [address]- 6296 Nov, [facility] [place] [facility] [address] [id number] [place] [address]- 6286 Oct, [facility] [place] [facility] [address] [id number] [place] [address]- 8487 Oct, [facility] [place] [facility] [address] [id number] [place] [address]- 9160 Oct, [facility] [place] [facility] [address] [id number] [place] [address]- 5536 Oct, [facility] [place] [facility] [address] [id number] [place] [address]- 8519 Oct, [facility] [place] [facility] [address] [id number] [place] [address]- 5052 Oct, [facility] [place] [facility] [address] [id number] [place] [address]- 8983 Sep, [facility] [place] [facility] [address] [id number] [place] [address]- 2426 Sep, [facility] [place] [facility] [address] [id number] [place] [address] Sep, [facility] [place] [facility] [address] [id number] [place] [address] Sep, [facility] [place] [facility] [address] [id number] [place] [address] Sep, [facility] [place] [facility] [address] [id number] [place] [address] Sep, [facility] [place] [facility] [address] [id number] [place] [address] 05 Sep, 2014 [facility] [place] [facility] [address] [id number] [place] [address] Sep, [facility] [place] [facility] [address] [id number] [place] [address] Sep, [facility] [place] [facility] [address] [id number] [place] [address] Sep, [facility] [place] [facility] [address] [id number] [place] Aug, [facility] [place] [facility] [address] [id number] [place] [address] Aug, [facility] [place] [facility] [address] [id number] [place] [address] Aug, [facility] [place] [facility] [address] [id number] [place] [address] Aug, [facility] [place] [facility] [address] [id number] [place] [address] Aug, [facility] [place] [facility] [address] [id number] [place] [address] Aug, [facility] [place] [facility] [address] [id number] [place] [address] Aug, [facility] [place] [facility] [address] [id number] [place] [address] Aug, [facility] [place] [facility] [address] [id number] [place] [address] Jul, [facility] [place] [facility] [address] [id number] [place] [address] 28 Jul, 2014 [facility] [place] [facility] [address] [id number] [place] [address] Jul, [facility] [place] [facility] [address] [id number] [place] [address] Jul, [facility] [place] [facility] [address] [id number] [place] [address] 15 Jul, 2014 [facility] [place] [facility] [address] [id number] [place] [address] 15 Jul, 2014 [facility] [place] [facility] [address] [id number] [place] [address] 06 Jul, 2014 [facility] [place] [facility] [address] [id number] [place] [address] 06 Jul, 2014 [facility] [place] [facility] [address] [id number] [place] [address] 4[address] 24 Jun, 2013 [facility] [place] [facility] [address] [id number] [place] [address] 2549 24 Jun, 2013 [facility] [place] [facility] [address] [id number] [place] [address]- 4476 23 Jun, 2013 [facility] [place] [facility] [address] [id number] [place] [address]- 2531 23 Jun, 2013 [facility] [place] [facility] [address] [id number] [place] [address]- 6930 23 Jun, 2013 [facility] [place] [facility] [address] [id number] [place] [address]- 2544 23 Jun, 2013 [facility] [place] [facility] [address] [id number] [place] [address] 2544 22 Jun, 2013 [facility] [place] [facility] [address] [id number] [place] [address] 2545 22 Jun, 2013 [facility] [place] [facility] [address] [id number] [place] [address] 2546 22 Jun, 2013 [facility] [place] [facility] [address] [id number] [place] [address]- 2542 22 Jun, 2013 [facility] [place] [facility] [address] [id number] [place] [address] 2545 15 Jun, 2013 [facility] [place] [facility] [address] [id number] [place] [address] 2548 15 Jun, 2013 [facility] [place] [facility] [address] [id number] [place] [address] 2546 Jun, [facility] [place] [facility] [address] [id number] [place] [address]- 7251 Jun, [facility] [place] [facility] [address] [id number] [place] [address]- 5955 Jun, [facility] [place] [facility] [address] [id number] [place] [address]- 4229 Jun, [facility] [place] [facility] [address] [id number] [place] [address]- 0756 May, [facility] [place] [facility] [address] [id number] [place] [address]- 7238 May, [facility] [place] [facility] [address] [id number] [place] [address]- 0203 May, [facility] [place] [facility] [address] [id number] [place] [address]- 3615 May, [facility] [place] [facility] [address] [id number] [place] [address]- 2372 May, [facility] [place] [facility] [address] [id number] [place] [address]- 4833 May, [facility] [place] [facility] [address] [id number] [place] [address]- 9667 May, [facility] [place] [facility] [address] [id number] [place] [address]- 2445 May, [facility] [place] [facility] [address] [id number] [place] [address]- 1966 May, [facility] [place] [facility] [address] [id number] [place] [address]- 1780 May, [facility] [place] [facility] [address] [id number] [place] [address]- 5993 May, [facility] [place] [facility] [address] [id number] [place] [address]- 7266 May, [facility] [place] [facility] [address] [id number] [place] [address]- 9922 May, [facility] [place] [facility] [address] [id number] [place] [address]- 7829 May, [facility] [place] [facility] [address] [id number] [place] [address]- 8529 May, [facility] [place] [facility] [address] [id number] [place] [address]- 7180 Apr, [facility] [place] [facility] [address] [id number] [place] [address]- 9609 Apr, [facility] [place] [facility] [address] [id number] [place] [address]- 9428 Apr, [facility] [place] [facility] [address] [id number] [place] [address]- 2203 Apr, [facility] [place] [facility] [address] [id number] [place] [address]- 3395 Apr, [facility] [place] [facility] [address] [id number] [place] [address]- 7122 Apr, [facility] [place] [facility] [address] [id number] [place] [address]- 2673 Apr, [facility] [place] [facility] [address] [id number] [place] [address]- 8850 Apr, [facility] [place] [facility] [address] [id number] [place] [address]- 5582 Apr, [facility] [place] [facility] [address] [id number] [place] [address]- 5426 Apr, [facility] [place] [facility] [address] [id number] [place] [address]- 4474 Apr, [facility] [place] [facility] [address] [id number] [place] [address]- 7413 Apr, [facility] [place] [facility] [address] [id number] [place] [address]- 8124 Apr, [facility] [place] [facility] [address] [id number] [place] [address]- 5894 Apr, [facility] [place] [facility] [address] [id number] [place] [address]- 6155 Mar, [facility] [place] [facility] [address] [id number] [place] [address]- 4817 Mar, [facility] [place] [facility] [address] [id number] [place] [address]- 1082 Mar, [facility] [place] [facility] [address] [id number] [place] [address]- 2639 Mar, [facility] [place] [facility] [address] [id number] [place] [address]- 1090 Mar, [facility] [place] [facility] [address] [id number] [place] [address]- 4807 Mar, [facility] [place] [facility] [address] [id number] [place] [address]- 1618 Mar, [facility] [place] [facility] [address] [id number] [place] [address]- 5110 Mar, [facility] [place] [facility] [address] [id number] [place] [address]- 4554 Mar, [facility] [place] [facility] [address] [id number] [place] [address]- 2072 February, [facility] [place] [facility] [address] [id number] [place] [address]- 9228 February, [facility] [place] [facility] [address] [id number] [place] [address]- 5232 February, [facility] [place] [facility] [address] [id number] [place] [address]- 6500 February, [facility] [place] [facility] [address] [id number] [place] [address]- 3509 February, [facility] [place] [facility] [address] [id number] [place] [address]- 8249 February, [facility] [address] [id number] [place] [address]- 0463 February, [facility] [place] [facility] [address] [id number] [place] [address]- 6831 February, [facility] [place] [facility] [address] [id number] [place] [address]- 2636 February, [facility] [place] [facility] [address] [id number] [place] [address]- 4679 February, [facility] [place] [facility] [address] [id number] [place] [address]- 9246 February, [facility] [place] [facility] [address] [id number] [place] [address]- 0393 February, [facility] [place] [facility] [address] [id number] [place] [address]- 4581 February, [facility] [place] [facility] [address] [id number] [place] [address]- 3040 February, [facility] [place] [facility] [address] [id number] [place] [address]- 6498 February, [facility] [place] [facility] [address] [id number] [place] [address]- 7893 February, [facility] [place] [facility] [address] [id number] [place] [address]- 5413 February, [facility] [place] [facility] [address] [id number] [place] [address]- 3712 February, [facility] [place] [facility] [address] [id number] [place] [address]- 9362 February, [facility] [place] [facility] [address] [id number] [place] [address]- 6641 February, [facility] [place] [facility] [address] [id number] [place] [address]- 6209 February, [facility] [place] [facility] [address] [id number] [place] [address]- 4308 February, [facility] [address] [id number] [place] [address]- 0574 February, [facility] [place] [facility] [address] [id number] [place] [address]- 9989 Jan, [facility] [place] [facility] [address] [id number] [place] [address]- 7467 Jan, [facility] [place] [facility] [address] [id number] [place] [address]- 5361 Jan, [facility] [place] [facility] [address] [id number] [place] [address]- 1066 Jan, [facility] [place] [facility] [address] [id number] [place] [address]- 4541 Jan, [facility] [place] [facility] [address] [id number] [place] [address]- 7716 Jan, [facility] [place] [facility] [address] [id number] [place] [address]- 0466 Jan, [facility] [place] [facility] [address] [id number] [place] [address]- 2840 Jan, [facility] [place] [facility] [address] [id number] [place] [address]- 7616 Jan, [facility] [place] [facility] [address] [id number] [place] [address]- 2301 Jan, [facility] [place] [facility] [address] [id number] [place] [address]- 0754 Jan, [facility] [place] [facility] [address] [id number] [place] [address]- 4417 Jan, [facility] [place] [facility] [address] [id number] [place] [address]- 5842 Dec, [facility] [place] [facility] [address] [id number] [place] [address]- 3053 Dec, [facility] [place] [facility] [address] [id number] [place] [address]- 2967 Nov, [facility] [place] [facility] [address] [id number] [place] [address]- 1136 Nov, [facility] [place] [facility] [address] [id number] [place] [address]- 9988 Nov, [facility] [place] [facility] [address] [id number] [place] [address]- 1219 Nov, [facility] [place] [facility] [address] [id number] [place] [address]- 3734 Nov, [facility] [place] [facility] [address] [id number] [place] [address]- 3699 Nov, [facility] [place] [facility] [address] [facility] [id number] [place] [address]- 3656 Oct, [facility] [place] [facility] [address] [id number] [place] [address]- 0196 Oct, [facility] [place] [facility] [address] [facility] [id number] [place] [address]- 3733 Oct, [facility] [place] [facility] [address] [facility] [id number] [place] [address]- 6473 Oct, [facility] [place] [facility] [address] [facility] [id number] [address]- 2073 Sep, [facility] [place] [facility] [address] [id number] [place] [address]- 4296 Sep, [facility] [place] [facility] [address] [id number] [place] [address]- 5242 Sep, [facility] [place] [facility] [address] [id number] [place] [address]- 7939 Sep, [facility] [place] [facility] [address] [facility] [id number] [place] [address]- 9320 18 Sep, 2013 [facility] [place] [facility] [address] [id number] [place] [address]- 2228 18 Sep, 2013 [facility] [address] [id number] [place] [address]- 1302 17 Sep, 2013 [facility] [place] [facility] [address] [id number] [place] [address]86 17 Sep, 2013 [facility] [place] [facility] [address] [facility] [id number] [place] [address]- 1288 Sep, [facility] [place] [facility] [address] [id number] [place] [address]- 3612 Sep, [facility] [place] [facility] [address] [facility] [id number] [place] [address]- 9084 Sep, [facility] [place] [facility] [address] [facility] [id number] [place] [address]- 1866 Sep, [facility] [address] [id number] [place] [address]- 0175 Sep, [facility] [place] [facility] [address] [facility] [id number] [place] [address]- 4957 Sep, [facility] [place] [facility] [address] [facility] [id number] [place] [address]- 1991 Aug, [facility] [place] [facility] [address] [facility] [id number] [place] [address]- 3154 Aug, [facility] [place] [facility] [address] [facility] [id number] [place] [address]- 3982 Aug, [facility] [place] [facility] [address] [facility] [id number] [place] [address]- 5752 Aug, [facility] [place] [facility] [address] [id number] [place] [address]- 7316 Jul, [facility] [place] [facility] [address] [facility] [id number] [place] [address]- 4257 24 Jul, 2013 [facility] [place] [facility] [address] [facility] [id number] [place] [address]- 1884 Jul, [facility] [place] [facility] [address] [id number] [place] [address]- 9702 10 Jul, 2013 [facility] [place] [facility] [address] [id number] [place] [address]- 4481 27 Jun, 2013 [facility] [place] [facility] [address] [id number] [place] [address]- 4506 Jun, [facility] [place] [facility] [address] [id number] [place] [address]- 4846 11 Jun, 2013 [facility] [place] [facility] [address] [id number] [place] [address]- 8184 Jun, [facility] [place] [facility] [address] [id number] [place] [address]- 1697 May, [facility] [place] [facility] [address] [id number] [place] [address]- 1652 May, [facility] [place] [facility] [address] [id number] [place] [address]- 3947 May, [facility] [place] [facility] [address] [id number] [place] [address]- 8935 May, [facility] [place] [facility] [address] [id number] [place] [address]- 7688 May, [facility] [place] [facility] [address] [id number] [place] [address]- 5721 May, [facility] [place] [facility] [address] [id number] [place] [address]- 4864 May, [facility] [place] [facility] [address] [id number] [place] [address]- 5385 May, [facility] [place] [facility] [address] [id number] [place] [address]- 9378 May, [facility] [place] [facility] [address] [id number] [place] [address]- 7714 Apr, [facility] [place] [facility] [address] [id number] [place] [address]- 0448 Apr, [facility] [address] [id number] [place] [address]- 9867 Apr, [facility] [place] [facility] [address] [id number] [place] [address]- 8930 Apr, [facility] [place] [facility] [address] [id number] [place] 6779 Apr, [facility] [place] [facility] [address] [id number] [place] [address]- 6783 Apr, [facility] [place] [facility] [address] [id number] [place] [address]- 3849 Apr, [facility] [place] [facility] [address] [id number] [place] [address]- 8007 Mar, [facility] [place] [facility] [address] [id number] [place] [address]- 6185 February, [facility] [place] [facility] [address] [id number] [place] [address]- 1339 February, [facility] [place] [facility] [address] [id number] [place] [address]- 5963 February, [facility] [place] [facility] [address] [id number] [place] [address]- 0697 February, [facility] [place] [facility] [address] [id number] [place] [address]- 7480 February, [facility] [place] [facility] [address] [id number] [place] [address]- 4459 Jan, [facility] [place] [facility] [address] [id number] [place] [address]- 3750 Jan, [facility] [place] [facility] [address] [id number] [place] [address]- 0329 Jan, [facility] [place] [facility] [address] [id number] [place] [address]- 5730 Dec, [facility] [place] [facility] [address] [id number] [place] [address]- 3896 27 Dec, 2012 [facility] [address] [id number] [place] [address]- 3401 Dec, [facility] [address] [id number] [place] [address]- 9096 Dec, [facility] [address] [id number] [place] [address]- 5351 Dec, [facility] [address] [id number] [place] [address]- 4489 Dec, [facility] [address] [id number] [place] [address]- 6161 Nov, [facility] [address] [id number] [place] [address]- 3690 Nov, [facility] [address] [id number] [place] [address]- 3481 Nov, [facility] [address] [id number] [place] [address]- 6677 Nov, [facility] [address] [id number] [place] [address]- 7162 Nov, [facility] [address] [id number] [place] [address]- 4905 Nov, [facility] [address] [id number] [place] [address]- 9638 Oct, [facility] [address] [id number] [place] [address] 2544 Oct, [facility] [place] [facility] [address] [id number] [place] [address]- 5172 Oct, [facility] [place] [facility] [address] [id number] [place] [address] 2546 Oct, [facility] [place] [facility] [address] [id number] [place] [address]- 7108 Oct, [facility] [place] [facility] [address] [id number] [place] [address]- 7305 Oct, [facility] [place] [facility] [address] [id number] [place] [address]- 9143 Sep, [facility] [place] [facility] [address] [id number] [place] 5093 Sep, [facility] [place] [facility] [address] [id number] [place] [address]- 3478 Sep, [facility] [place] [facility] [address] [id number] [place] [address]- 9195 Sep, [facility] [place] [facility] [address] [id number] [place] [address]- 8750 Sep, [facility] [place] [facility] [address] [id number] [place] [address]- 9299 Sep, [facility] [place] [facility] [address] [id number] [place] [address]- 0162 Sep, [facility] [place] [facility] [address] [id number] [place] [address]- 5786 Sep, [facility] [place] [facility] [address] [id number] [place] [address]- 5794 Aug, [facility] [place] [facility] [address] [id number] [place] [address]- 6735 Aug, [facility] [place] [facility] [address] [id number] [place] [address]- 4990 Aug, [facility] [place] [facility] [address] [id number] [place] [address]- 9931 Aug, [facility] [place] [facility] [address] [id number] [place] [address]- 9651 Aug, [facility] [place] [facility] [address] [id number] [place] [address]- 2605 Aug, [facility] [place] [facility] [address] [id number] [place] [address]- 2237 Aug, [facility] [place] [facility] [address] [id number] [place] [address]- 6322 Aug, [facility] [place] [facility] [address] [id number] [place] [address]- 8546 Jul, [facility] [place] [facility] [address] [id number] [place] [address]- 5479 Jul, [facility] [place] [facility] [address] [id number] [place] [address]- 3162 Jul, [facility] [place] [facility] [address] [id number] [place] 4939 Jul, [facility] [place] [facility] [address] [id number] [place] [address]- 1228 Jul, [facility] [place] [facility] [address] [id number] [place] [address]- 2669 Jul, [facility] [place] [facility] [address] [id number] [place] [address]- 4977 Jul, [facility] [place] [facility] [address] [id number] [place] [address]- 4784 Jul, [facility] [place] [facility] [address] [facility] [id number] [place] [address] Jul, [facility] [place] [facility] [address] [id number] [place] [address] 27 Jun, 2012 [facility] [place] [facility] [address] [id number] [place] [address] 26 Jun, 2012 [facility] [place] [facility] [address] [id number] [place] [address] 25 Jun, 2012 [facility] [place] [facility] [address] [id number] [place] [address] 24 Jun, 2012 [facility] [place] [facility] [address] [facility] [id number] [place] [address] Oct, [facility] [place] [facility] [address] [id number] [place] [address] 28 Aug, 2011 [facility] [address] [id number] [place] [address] 19 Oct, 2010 [facility] [place] [facility] [address] [id number] [place] [address] 23 Sep, 2010 [facility] [place] [facility] [address] [id number] [place] [address] 22 Sep, 2010 [facility] [place] [facility] [address] [id number] [place] [address] 16 Sep, 2010 [facility] [place] [facility] [address] [id number] [place] [address] 13 Sep, 2010 [facility] [place] [facility] [address] [id number] [place] [address] 10 Sep, 2010 [facility] [place] [facility] [address] [id number] [place] [address] 10 Sep, 2010 [facility] [place] [facility] [address] [id number] [place] [address] 10 Sep, 2010 [facility] [place] [facility] [address] [id number] [place] [address] 08 Sep, 2010 [facility] [place] [facility] [address] [id number] [place] [address] 08 Sep, 2010 [facility] [place] [facility] [address] [id number] [place] [address] 03 Sep, 2010 [facility] [place] [facility] [address] [id number] [place] [address] 04 Aug, 2010 [facility] [place] [facility] [address] [id number] [place] [address] Aug, [facility] [place] [facility] [address] [id number] [place] [address] 18 Jul, 2010 [facility] [place] [facility] [address] [id number] [place] [address] Jan, [facility] [address] [id number] [address] Dec, [facility] [address] [facility] [id number] [place] [address] Nov, [facility] [address] [id number] [address] Sep, [facility] [id number] [address] Sep, [facility] [id number] [address] Jul, [facility] [id number] [address] Jul, [facility] [id number] [address] Jul, [facility] [address] [id number] Jul, [facility] [address] [id number] [address] Jul, IMMUNIZATIONS No Known Immunizations SOCIAL HISTORY Never Assessed REASON FOR VISIT Pain PLAN OF CARE VITAL SIGNS MEDICATIONS Medication Instructions Dosage Frequency Start Date End Date Duration Status Magic Mouthwash Apply medicated swab to sore areas of the mouth to numb the pain As needed Dip cotton swab into medication Jun, As needed Active Clindamycin HCl 300 MG Orally every [...]
--- OUTSIDE RECORDS SUMMARY | 2018-03-06 16:53 | XMS REPORT ---
Author Author RADHA AMOL Organization [facility] Address [address] [place] [address] Care Team Providers Care Meter Maker Name Role Phone AMOL GARCIA Unavailable PROBLEMS Type Condition ICD9-CM Code QIE29-IC Code Onset Dates Condition Status SNOMED Code Problem Essential (primary) hypertension I10 Active 10417006 Problem Heart valve disorder I38 Active 856248 Problem Breast cancer screening Z12.39 Active 960340125 Problem Gastroesophageal reflux disease with esophagitis K21.0 Active 617167851 Problem Nocturnal hypoxia G47.34 Active 424881339 Problem Aortic valve stenosis, unspecified etiology I35.0 Active 41932654 Problem Essential hypertension I10 Active 17578733 Problem Stress incontinence N39.3 Active 92744830 Problem Hyperlipidemia, unspecified hyperlipidemia type E78.5 Active 46927384 Problem Hyperglycemia R73.9 Active 92538059 Problem COPD (chronic obstructive pulmonary disease) J44.9 Active 39552754 Problem Mixed stress and urge urinary incontinence N39.46 Active 803547798 Problem skilled nursing (current) use of anticoagulants Z79.01 Active 179444600 Problem Thyroid nodule, cold E04.1 Active 836036366 Problem Atherosclerotic heart disease of [place] coronary artery without angina pectoris I25.10 Active [id number] ALLERGIES Substance Reaction Event Type Date Status Singulair Unknown Drug Allergy May, Active Simvastatin Unknown Drug Allergy May, Active Penicillin V Potassium Unknown Drug Allergy May, Active Iodine Unknown Drug Allergy May, Active ENCOUNTERS Encounter Location Date Diagnosis [facility] [address] [facility] [id number] [address] February, [facility] [address] [facility] [id number], [place] [address] Jan, [facility] [place] [address] [facility] [address] [id number] [place] [id number] Jan, [facility] [address], [place] [address] Jan, Tooth abscess K04.7 [facility] [address] [place] [id number] [place] [address] 73156- 8668 Jan, Dental abscess K04.7 ; Dental caries K02.9 and Pain, dental K08.89 [place] [address] 08479- 2655 Jan, Encounter for immunization Z23 ; Medicare annual wellness visit, initial Z00.00 ; Dysuria R30.0 ; COPD (chronic obstructive pulmonary disease) J44.9 ; Essential (primary) hypertension I10 ; Breast cancer screening Z12.39 ; Aortic valve stenosis, unspecified etiology I35.0 ; Hyperlipidemia, unspecified hyperlipidemia type E78.5 ; Gastroesophageal reflux disease with esophagitis K21.0 ; skilled nursing (current) use of anticoagulants Z79.01 and Colon cancer screening Z12.11 [facility] [id number] [place] [address]4 Jan, Dental infection K04.7 [place] [address] [place] [id number] [place] [address] 77910- 7302 Jan, [place] [address] [place] [id number] [place] [address] 69751- 2311 Dec, Essential hypertension I10 and Atherosclerotic heart disease of [place] coronary artery without angina pectoris I25.10 [place] [id number] [place] [address] 73694- 2733 Dec, [place] [address] [place] [id number] [place] [address] 92472- 3438 Dec, Urinary tract infection, site not specified N39.0 [place] [address] [place] [id number] [place] [address] 61423- 5503 Dec, Cough R05 ; Dysuria R30.0 ; skilled nursing (current) use of anticoagulants Z79.01 ; Atherosclerotic heart disease of [place] coronary artery without angina pectoris I25.10 and Urinary tract infection without hematuria, site unspecified N39.0 [facility] [address] 120[address] Dec, Seasonal allergic rhinitis, unspecified trigger J30.2 [facility] [address] 29162- 3225 27 Nov, 2017 [place] [address] 99221- 2242 Nov, Mixed stress and urge urinary incontinence N39.46 [place] [address] 45271- 3036 Nov, [place] [address] 10372- 8595 Nov, [facility] [address] [address]9047 Nov, Gastroesophageal reflux disease with esophagitis K21.0 [facility] [place] [address] 8[address]60 -7101 02 Nov, 2017 Upper respiratory infection, acute J06.9 and Post-nasal drainage R09.82 [place] [address] 86468- 1534 Oct, COPD (chronic obstructive pulmonary disease) J44.9 and Nocturnal hypoxia G47.34 [place] [address] 08824- 7908 Oct, [place] [address] 54998- 7038 Oct, Stress incontinence N39.3 ; COPD (chronic obstructive pulmonary disease) J44.9 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 [place] [address] 63866- 7760 Oct, [place] [address] 00025- 3276 Sep, Nasal congestion R09.81 [facility] [address], [place] [address] Sep, [facility] [place] [address] [place] [id number] [place] [address] 80888 -3381 Aug, Other viral agents as the cause of diseases classified elsewhere B97.89 ; Acute upper respiratory infection, unspecified J06.9 and BMI 40.0-44.9, adult Z68.41 [place] [address] [place] [id number] [place] [address] 98797- 3299 Aug, Dysuria R30.0 ; Urinary tract infection, site not specified N39.0 ; Hematuria, unspecified R31.9 and Stress incontinence N39.3 [facility] [place] [address] [place] [id number] [place] [address] 16229 -9824 Jul, Oral abscess K12.2 [place] [address] [place] [id number] [place] [address] 02189- 2467 Jul, [place] [address] [place] [id number] [place] [address] 32293- 8299 Jul, [facility] [address] [place] [id number] [place] [address] [id number] Jun, Dental examination Z01.20 [facility] [place] [address] [id number] [place] [id number] Jun, [facility] [place] [address] [id number] [place] [id number] Jun, [place] [id number] [place] [address] 58449- 1654 May, Plantar fasciitis of right foot M72.2 [place] [id number] [place] [address] 909422- 5976 May, [facility] [id number] [place] [address] 29089 -9528 Apr, Acute upper respiratory infection, unspecified J06.9 and Seasonal allergic rhinitis, unspecified chronicity, unspecified trigger J30.2 [facility] [address] [place] [id number] [place] [address] 49627- 1132 Mar, Plantar fasciitis of right foot M72.2 and Bursitis of right foot M71.571 [facility] [address] [place] [id number] [place] [address] 57002 -8482 Mar, Acute seasonal allergic rhinitis, unspecified trigger J30.2 [facility] [address] [place] [id number] [place] [address] 03507 -7895 February, Acute upper respiratory infection, unspecified J06.9 [facility] [address] 96609- 9624 February, [facility] [address] [place] [id number] [place] [address] 42053- 1381 February, [facility] [address] 57149- 1404 Jan, Right foot pain M79.671 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 [facility] [address] [id number] Jan, Dental caries K02.9 [facility] [address] [place] [id number] [place] [address] 46100- 0754 Jan, [facility] [address] [place] [id number] [place] [address] 61100- 9566 Jan, [facility] [address] [place] [id number] [place] [address] 54284- 1088 Jan, skilled nursing (current) use of anticoagulants Z79.01 [facility] [address] 88788- 3540 Jan, [facility] [address] [place] [id number] [place] [address] 49249- 7446 Jan, Atherosclerotic heart disease of [place] coronary artery without angina pectoris I25.10 ; Aortic valve stenosis, unspecified etiology I35.0 ; Essential hypertension I10 and Hyperlipidemia, unspecified hyperlipidemia type E78.5 [place] [address] 87098- 8625 Jan, Dental examination Z01.20 [facility] [place] [address] 63232 -1072 Jan, Tooth abscess K04.7 and Abscess of mouth K12.2 [place] [address] 17289- 6768 Dec, [place] [address] 21463- 1816 Dec, Cough R05 [place] [address] 25929- 8051 Dec, [facility] [place] [address] 62278 -6180 Dec, Dental abscess K04.7 [place] [address] 22907- 8817 Nov, skilled nursing (current) use of anticoagulants Z79.01 and Hypokalemia E87.6 [place] [address] 56316- 4465 Nov, skilled nursing (current) use of anticoagulants Z79.01 [place] [address] 48150- 9018 Nov, skilled nursing (current) use of anticoagulants Z79.01 ; Hyperglycemia R73.9 ; Hypokalemia E87.6 and Heart valve disorder I38 [facility] [place] [address] 39613 -9497 08 Nov, 2016 Pain of right heel M79.671 [place] [address] 36738- 3739 Sep, Back pain M54.9 [place] [address], [place] [address] 5[address] Sep, [facility] [id number] [place] [address] 27173- 5017 Sep, Back pain M54.9 [facility] [address], [place] [address] 9325 Aug, Nasal congestion R09.81 [facility] [id number] [place] [address] 70046- 4022 Aug, [facility] [id number] [place] [address] 00625 -1913 Aug, Acute non-recurrent frontal sinusitis J01.10 [facility] [id number] [place] [address] 80635- 9431 Jul, [facility] [id number] [place] [address] 77029- 6877 Jul, [facility] [address], [place] [address]- 3528 Jun, [facility] [address] [place] [id number] [place] [address] 11199- 6440 Jun, [facility] [address], [place] [address]- 9733 May, [facility] [address], [place] [address] 2653 May, [address] [id number] [place] [address] May skilled nursing (current) use of anticoagulants Z79.01 [facility] [address] [place] [id number] [place] [address] 44179- 1590 Apr, skilled nursing (current) use of anticoagulants Z79.01 [facility] [address], [place] [address]- 9446 Apr, [facility] [id number] [place] [address] 99033- 5790 Apr, [facility] [address] 67958- 2504 Apr, Hyperglycemia R73.9 and Breast cancer screening Z12.39 [facility] [address] [place] [id number] [place] [address] 77665- 6886 Mar, [facility] [address] 40719 -8658 Mar, Left foot pain M79.672 [facility] [address] 31033 -2920 February, Dysuria R30.0 [place] [address] 92140- 3919 February, skilled nursing (current) use of anticoagulants Z79.01 [place] [address] 34104- 2747 February, 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 [place] [address] [place] [id number] [place] [address] 96976- 1925 February, [place] [address] 12448- 3839 February, 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 [place] [address] 26973- 1182 February, 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 [place] [address] [place] [id number] [place] [address] 17134- 5626 Jan, [place] [address] 68748- 4539 Jan, [facility] [address] [place] [id number] [place] [address] 16175 -5511 14 Jan, 2016 Allergic rhinitis J30.9 ; Cough R05 and Stress incontinence N39.3 [place] [address] [place] [id number], [place] [address]- 3897 Jan, skilled nursing (current) use of anticoagulants Z79.01 [facility] [address] [place] [id number] [place] [address] 71212- 4335 Jan, skilled nursing (current) use of anticoagulants Z79.01 [facility] [address] [place] [id number] [place] [address] 27946- 1026 Dec, skilled nursing (current) use of anticoagulants Z79.01 ; Atherosclerotic heart disease of [place] coronary artery without angina pectoris I25.10 and Essential (primary) hypertension I10 [place] [address] 25498- 2896 Dec, COPD (chronic obstructive pulmonary disease) J44.9 [place] [address] [place] [id number] [place] [address] 26088- 4991 Dec, [place] [address] [place] [id number] [place] [address] 18997- 2488 Dec, [facility] [address] [place] [id number] [place] [address] 32317- 6746 Dec, Hyperglycemia R73.9 ; COPD (chronic obstructive pulmonary disease) J44.9 ; skilled nursing current use of anticoagulant therapy V58.61 and Back pain M54.9 [facility] [address], [place] [address]- 8122 Nov, [facility] [id number] [place] [address] 36884- 3164 Nov, [facility] [address], [place] [address]- 6737 Oct, [place] [address] [place] [id number] [place] [address] 84654- 2654 Oct, [facility] [address], [place] [address]- 2362 Oct, [facility] [address] [id number], [place] [address]28 Sep, Bronchitis J40 [facility] [address] [place] [id number] [place] [address] 49367- 5082 Sep, [facility] [address] [place] [id number] [place] [address] 26859- 9207 Aug, [facility] [address] [place] [id number] [place] [address] 03850- 9817 Aug, [facility] [address] [place] [id number] [place] [address] 47943- 0044 Jul, [facility] [address] [id number] Jul, Encounter for dental examination Z01.20 [facility] [address] [place] [id number] [place] [address] 38700- 3305 Jul, Ear pain, right H92.01 ; High risk medication use Z79.899 and Back pain, unspecified back pain laterality, unspecified location M54.9 [facility] [address] [place] [id number] [place] [address] 75142- 5090 Jul, Meningitis contact Z20.89 [facility] [address] [place] [id number] [place] [address] 51099- 8799 Jul, [facility] [address] [place] [id number] [place] [address] 21224- 3971 Jul, [facility] [address] [place] [id number] [place] [address] 80130- 9212 Jul, [facility] [address] [place] [id number] [place] [address] 44436- 2176 May, [facility] [address] [place] [id number] [place] [address] 00834- 1929 May, [facility] [address] [place] [address] 35483- 0699 Apr, 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 ; CAD (coronary artery disease) 414.00 ; Constipation 564.00 and Back pain 724.5 [facility] [address] [facility] [id number], [place] [address]- 7359 Apr, [facility] [address] [facility] [id number], [place] [address]- 5054 Apr, [facility] [address] [place] [id number] [place] [address] 54517- 3705 Apr, 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 ; Constipation 564.00 ; Back pain 724.5 and CAD (coronary artery disease) 414.00 [facility] [address] [place] [id number] [place] [address] 11471- 2935 Apr, [facility] [address] [address] [id number], [place] [address]- 4138 Mar, [facility] [address] [place] [id number] [place] [address] 38838- 1375 Mar, [facility] [address], [place] [address]- 6255 February, [facility] [address] [place] [id number] [place] [address] 04051- 2031 February, [facility] [address], [place] [address]- 4377 Jan, [facility] [address], [place] [address]- 8851 Jan, [facility] [address], [place] [address]- 4438 Dec, [facility] [address] [place] [id number]- 5615 Dec, [facility] [address] 6041 Dec, [facility] [address] 2353 Dec, [facility] [place] [facility] [address] [id number] [place] [address]- 5573 Dec, [facility] [place] [facility] [address] [id number] [place] [address]- 7479 Dec, [facility] [place] [facility] [address] [id number] [place] [address]- 3317 Dec, [facility] [place] [facility] [address] [id number] [place] [address]- 9481 Dec, [facility] [place] [facility] [address] [id number] [place] [address]- 5388 Dec, [facility] [place] [facility] [address] [id number] [place] [address]- 7670 Dec, [facility] [place] [facility] [address] [id number] [place] [address]- 5575 Dec, [facility] [place] [facility] [address] [id number] [place] [address]- 6717 Dec, [facility] [place] [facility] [address] [id number] [place] [address]- 2585 Dec, [facility] [place] [facility] [address] [id number] [place] [address]- 7858 Dec, [facility] [place] [facility] [address] [id number] [place] [address]- 5882 Dec, [facility] [place] [facility] [address] [id number] [place] [address]- 4560 Dec, [facility] [place] [facility] [address] [id number] [place] [address]- 4752 Dec, [facility] [place] [facility] [address] [id number] [place] [address]- 3761 Dec, [facility] [place] [facility] [address] [id number] [place] 9779 Dec, [facility] [place] [facility] [address] [id number], [place] [address]- 2675 Dec, 2014 [facility] [place] [facility] [address] [facility] [id number] [place] [address]- 1851 Dec, 2014 [facility] [place] [facility] [address] [facility] [id number] [place] [address]- 6801 Nov, 2014 [facility] [place] [facility] [address] [facility] [id number] [place] [address]- 9122 Nov, 2014 [facility] [place] [facility] [address] [facility] [id number] [place] [address]- 0723 Nov, 2014 [facility] [place] [facility] [address] [facility] [id number] [place] [address]- 1342 Nov, 2014 [facility] [place] [facility] [address] [place] [id number] [address]- 9703 Nov, 2014 [facility] [place] [facility] [address] [place] [address] [id number] [address]- 6516 Nov, 2014 [facility] [place] [facility] [address] [facility] [id number] [place] [address]- 7302 19 Nov, 2014 [facility] [place] [facility] [address] [place] [id number] [address]- 2923 18 Nov, 2014 [facility] [place] [facility] [address] [address] [id number], [place] [address]- 4604 18 Nov, 2014 [facility] [place] [facility] [address] [id number] [address]- 5929 Nov, 2014 [facility] [place] [facility] [address] [facility] [id number], [place] [address]- 2561 18 Nov, 2014 [facility] [place] [facility] [address] [facility] [id number] [place] [address]- 6244 Nov, 2014 [facility] [place] [facility] [address] [facility] [id number], [place] [address]- 4905 18 Nov, 2014 [facility] [place] [facility] [address] [place] [address] [id number], [place] [address]- 8287 16 Nov, 2014 [facility] [place] [facility] [address] [id number] [place] [address] Nov, 2014 [facility] [place] [facility] [address] [id number] [place] [address] Nov, [facility] [place] [facility] [address] [id number] [place] [address] Nov, [facility] [place] [facility] [address] [id number] [place] [address] Oct, [facility] [place] [facility] [address] [id number] [place] [address] Oct, [facility] [place] [facility] [address] [id number] [place] [address] Oct, [facility] [place] [facility] [address] [id number] [place] [address] Oct, [facility] [place] [facility] [address] [id number] [place] [address] Oct, [facility] [place] [facility] [address] [id number] [place] [address] Oct, [facility] [place] [facility] [address] [id number] [place] [address] Sep, [facility] [place] [facility] [address] [id number], [place] [address] Sep, [facility] [place] [facility] [address] [id number] [place] [address] Sep, [facility] [place] [facility] [address] [id number] [place] [address] Sep, [facility] [place] [facility] [address] [id number] [place] [address] Sep, [facility] [place] [facility] [address] [id number] [place] [address] Sep, [facility] [place] [facility] [address] [id number] [place] [address] 05 Sep, 2014 [facility] [place] [facility] [address] [id number] [place] [address] 05 Sep, 2014 [facility] [place] [facility] [address] [id number] [place] [address] Sep, [facility] [place] [facility] [address] [id number] [place] [id number] [address] Sep, [facility] [place] [facility] [address] [id number] [place] [address] Aug, [facility] [place] [facility] [address] [id number] [place] [address] 18 Aug, 2014 [facility] [place] [facility] [address] [id number] [place] [address] Aug, [facility] [place] [facility] [address] [id number] [place] [address] Aug, [facility] [place] [facility] [address] [id number] [place] [address] Aug, [facility] [place] [facility] [address] [id number] [place] [address] Aug, [facility] [place] [facility] [address] [id number] [place] [address] Aug, [facility] [place] [facility] [address] [id number] [place] [address] Aug, [facility] [place] [facility] [address] [id number] [place] [address] Jul, [facility] [place] [facility] [address] [id number] [place] [address] Jul, [facility] [place] [facility] [address] [id number] [place] [address] 7155 Jul, [facility] [place] [facility] [address] [id number] [place] [address] 59[address] Jul, [facility] [place] [facility] [address] [id number] [place] [address] 6707 15 Jul, 2014 [facility] [place] [facility] [address] [id number] [place] [address]- 2953 15 Jul, 2014 [facility] [place] [facility] [address] [id number] [place] [address]- 7571 Jul, [facility] [place] [facility] [address] [id number] [place] [address] Jul, [facility] [place] [facility] [address] [id number] [place] [address]- 9544 24 Jun, 2014 [facility] [place] [facility] [address] [id number] [place] [address]- 0143 24 Jun, 2014 [facility] [place] [facility] [address] [id number] [place] [address]- 9081 23 Jun, 2014 [facility] [place] [facility] [address] [id number] [place] [address]- 5794 23 Jun, 2014 [facility] [place] [facility] [address] [id number] [place] [address]- 4794 23 Jun, 2014 [facility] [place] [facility] [address] [id number] [place] [address]- 4207 23 Jun, 2014 [facility] [place] [facility] [address] [id number] [place] [address] 2548 22 Jun, 2013 [facility] [place] [facility] [address] [id number] [place] [address]- 4958 22 Jun, 2013 [facility] [place] [facility] [address] [id number] [place] [address] 2547 22 Jun, 2013 [facility] [place] [facility] [address] [id number] [place] [address]- 2548 22 Jun, 2013 [facility] [place] [facility] [address] [id number] [place] [address]- 4445 15 Jun, 2013 [facility] [place] [facility] [address] [id number] [place] [address]- 6872 15 Jun, 2013 [facility] [place] [facility] [address] [id number] [place] [address]- 3195 12 Jun, 2013 [facility] [place] [facility] [address] [id number] [place] [address]- 2593 12 Jun, 2014 [facility] [place] [facility] [address] [id number] [place] [address]- 4947 05 Jun, 2013 [facility] [place] [facility] [address] [id number] [place] [address]- 7614 05 Jun, 2014 [facility] [place] [facility] [address] [id number] [place] [address]- 8135 May, [facility] [place] [facility] [address] [id number] [place] [address]- 6835 May, [facility] [place] [facility] [address] [id number] [place] [address]- 9523 May, [facility] [place] [facility] [address] [id number] [place] [address]- 3318 May, [facility] [place] [facility] [address] [id number] [place] [address]- 5653 May, [facility] [place] [facility] [address] [id number] [place] [address]- 3846 May, [facility] [place] [facility] [address] [id number] [place] [address]- 2304 May, [facility] [place] [facility] [address] [id number] [place] [address]- 7601 May, [facility] [place] [facility] [address] [id number] [place] [address]- 2659 May, [facility] [place] [facility] [address] [id number] [place] [address]- 7581 May, [facility] [place] [facility] [address] [id number] [place] [address]- 0400 May, [facility] [place] [facility] [address] [id number] [facility] [place] [address]- 8235 May, [facility] [place] [facility] [address] [id number] [facility] [place] [address]- 4295 May, [facility] [place] [facility] [address] [id number] [facility] [place] [address]- 5158 May, [facility] [place] [facility] [address] [id number] [place] [address]- 0700 May, [facility] [place] [facility] [address] [id number] [place] [address]- 7738 Apr, [facility] [place] [facility] [address] [id number] [place] [address]- 5170 Apr, [facility] [place] [facility] [address] [id number] [place] [address]- 2903 Apr, [facility] [place] [facility] [address] [id number] [place] [address]- 2485 Apr, [facility] [place] [facility] [address] [id number] [place] [address]- 1374 Apr, [facility] [place] [facility] [address] [id number] [place] [address]- 3470 Apr, [facility] [place] [facility] [address] [id number] [place] [address]- 7882 Apr, [facility] [place] [facility] [address] [id number] [place] [address]- 8234 Apr, [facility] [place] [facility] [address] [id number] [place] [address]- 9837 Apr, [facility] [place] [facility] [address] [id number] [place] [address]- 4233 Apr, [facility] [place] [facility] [address] [id number] [place] [address]- 0036 Apr, [facility] [place] [facility] [address] [id number] [place] [address]- 2086 Apr, [facility] [place] [facility] [address] [id number] [place] [address]- 0838 Apr, [facility] [place] [facility] [address] [id number] [place] [address]- 3651 Apr, [facility] [place] [facility] [address] [id number] [place] [address] Mar, [facility] [place] [facility] [address] [id number] [place] [address]- 3613 Mar, [facility] [place] [facility] [address] [id number] [place] [address]- 2205 Mar, [facility] [place] [facility] [address] [id number] [place] [address]- 1062 Mar, [facility] [place] [facility] [address] [id number] [place] [address]- 3328 Mar, [facility] [place] [facility] [address] [id number] [place] [address]- 4564 Mar, [facility] [place] [facility] [address] [id number] [place] [address]- 1250 Mar, [facility] [place] [facility] [address] [id number] [place] [address]- 0850 Mar, [facility] [place] [facility] [address] [id number] [place] [address]- 2134 Mar, [facility] [place] [facility] [address] [id number] [address] 9174 February, [facility] [place] [facility] [address] [id number] [place] [address]- 3746 February, [facility] [place] [facility] [address] [id number] [place] [address]- 2690 February, [facility] [place] [facility] [address] [id number] [place] [address]- 0451 February, [facility] [place] [facility] [address] [id number] [place] [address]- 4987 February, [facility] [address] [id number] [place] [address]- 0040 February, [facility] [address] [id number] [place] [address]- 6023 February, [facility] [address] [id number] [place] [address]- 6104 February, [facility] [address] [id number] [place] [address]- 6313 February, [facility] [address] [id number] [place] [address]- 3041 February, [facility] [address] [id number] [place] [address]- 0378 February, [facility] [address] [id number] [place] [address]- 1056 February, [facility] [address] [id number] [place] [address]- 4944 February, [facility] [address] [id number] [place] [address]- 6909 February, [facility] [address] [id number] [place] [address]- 9390 February, [facility] [address] [id number] [place] [address]- 9658 February, [facility] [address] [id number] [place] [address]- 9282 February, [facility] [place] [facility] [address] [id number] [place] [address]- 7657 February, [facility] [place] [facility] [address] [id number] [place] [address]- 0274 February, [facility] [address] [id number] [place] [address]- 7222 February, [facility] [address] [id number] [place] [address]- 3612 February, [facility] [place] [facility] [address] [id number] [place] [address]- 2883 February, [facility] [place] [facility] [address] [id number] [place] [address]- 6137 February, [facility] [place] [facility] [address] [id number] [place] [address]- 5201 Jan, [facility] [address] [id number] [place] [address]- 1397 Jan, [facility] [place] [facility] [address] [id number] [place] [address]- 1423 Jan, [facility] [address] [id number] [place] [address]- 4831 Jan, [facility] [address] [id number] [place] [address]- 8693 Jan, [facility] [place] [facility] [address] [id number] [place] [address]- 8697 Jan, [facility] [place] [facility] [address] [id number] [place] [address]- 3222 Jan, [facility] [place] [facility] [address] [id number] [place] [address]- 3792 Jan, [facility] [place] [facility] [address] [id number] [place] [address]- 7461 Jan, [facility] [place] [facility] [address] [id number] [place] [address]- 5556 Jan, [facility] [place] [facility] [address] [id number] [place] [address]- 3383 Jan, [facility] [place] [facility] [address] [id number] [place] [address]- 2273 Jan, [facility] [place] [facility] [address] [id number] [place] [address]- 3786 Dec, [facility] [place] [facility] [address] [id number] [place] [address]- 3497 Dec, [facility] [place] [facility] [address] [id number] [place] [address]- 3397 Nov, [facility] [place] [facility] [address] [id number] [place] [address]- 6518 Nov, [facility] [place] [facility] [address] [id number] [place] [address]- 7688 Nov, [facility] [place] [facility] [address] [id number] [place] [address]- 9893 Nov, [facility] [place] [facility] [address] [id number] [place] [address]- 2113 Nov, [facility] [place] [facility] [address] [id number] [place] [address]- 3108 Nov, [facility] [place] [facility] [address] [id number] [place] [address]- 1878 Oct, [facility] [place] [facility] [address] [id number] [place] [address]- 7000 Oct, [facility] [place] [facility] [address] [facility] [id number] [place] [address]- 6409 Oct, [facility] [place] [facility] [address] [id number] [place] [address]- 4190 Oct, [facility] [place] [facility] [address] [id number] [place] [address]- 9280 Sep, [facility] [place] [facility] [address] [id number] [place] [address]- 5726 Sep, [facility] [place] [facility] [address] [id number] [place] [address]- 9819 Sep, [facility] [place] [facility] [address] [id number] [place] [address]- 6200 Sep, [facility] [place] [facility] [address] [id number] [place] [address]- 1038 Sep, [facility] [place] [facility] [address] [id number] [place] [address]- 7439 Sep, [facility] [place] [facility] [address] [id number] [place] [address] Sep, [facility] [place] [facility] [address] [id number] [place] [address]- 8241 Sep, [facility] [place] [facility] [address] [id number] [place] [address]- 6428 Sep, [facility] [place] [facility] [address] [id number] [place] [address]- 8439 Sep, [facility] [place] [facility] [address] [id number] [place] [address]- 4527 Sep, [facility] [place] [facility] [address] [id number] [place] [address]- 6884 Sep, [facility] [place] [facility] [address] [id number] [place] [address]- 5497 Sep, [facility] [place] [facility] [address] [id number] [place] [address]- 0790 Sep, [facility] [place] [facility] [address] [id number] [place] [address]- 3714 Aug, [facility] [place] [facility] [address] [id number] [place] [address]- 1873 Aug, [facility] [place] [facility] [address] [id number] [place] [address]- 6107 Aug, [facility] [place] [facility] [address] [id number] [place] [address]- 0251 Aug, [facility] [place] [facility] [address] [id number] [place] [address]- 9786 Jul, [facility] [place] [facility] [address] [id number] [place] [address]- 9999 Jul, [facility] [place] [facility] [address] [id number] [place] [address]- 9816 Jul, [facility] [place] [facility] [address] [id number] [place] [address]- 2980 Jul, [facility] [place] [facility] [address] [id number] [place] [address]- 7461 27 Jun, 2013 [facility] [place] [facility] [address] [id number] [place] [address]- 1683 18 Jun, 2013 [facility] [place] [facility] [address] [id number] [place] [address]- 9050 Jun, [facility] [place] [facility] [address] [id number] [place] [address]- 7675 Jun, [facility] [place] [facility] [address] [id number] [place] [address]- 7034 May, [facility] [place] [facility] [address] [id number] [place] [address]- 4756 May, [facility] [place] [facility] [address] [id number] [place] [address]- 0066 May, [facility] [place] [facility] [address] [id number] [place] [address]- 2223 May, [facility] [place] [facility] [address] [id number] [place] [address]- 8302 May, [facility] [place] [facility] [address] [id number] [place] [address]- 2989 May, [facility] [place] [facility] [address] [id number] [place] [address]- 9976 May, [facility] [place] [facility] [address] [id number] [place] [address]- 0371 May, [facility] [place] [facility] [address] [id number] [place] [address]- 0435 May, [facility] [place] [facility] [address] [id number] [place] [address]- 6571 Apr, [facility] [address] [id number] [place] [address]- 2920 Apr, [facility] [address] [id number] [place] [address]- 1041 Apr, [facility] [address] [id number] [place] [address]- 8037 Apr, [facility] [address] [id number] [place] [address]- 1103 Apr, [facility] [address] [id number] [place] [address]- 6072 Apr, [facility] [address] [id number] [place] [address]- 1324 Apr, [facility] [address] [id number] [place] [address]- 7692 Mar, [facility] [address] [id number] [place] [address]- 8387 February, [facility] [address] [id number] [place] [address]- 1860 February, [facility] [address] [id number] [place] [address]- 9625 February, [facility] [address] [id number] [place] [address]- 1724 February, [facility] [address] [id number] [place] [address]- 7138 February, [facility] [address] [id number] [place] [address]- 1860 Jan, [facility] [address] [id number] [place] [address]- 9771 Jan, [facility] [address] [id number] [place] [address]- 2247 Jan, [facility] [address] [id number] [place] [address]- 9771 Dec, [facility] [place] [facility] [address] [id number] [place] [address]- 7726 Dec, [facility] [address] [id number] [place] [address]- 8596 Dec, [facility] [place] [facility] [address] [id number] [place] [address]- 6176 Dec, [facility] [address] [id number] [place] [address]- 3376 Dec, [facility] [place] [facility] [address] [id number] [place] [address]- 3686 Dec, [facility] [address] [id number] [place] [address]- 9676 Nov, [facility] [address] [id number] [place] [address]- 9256 Nov, [facility] [address] [id number] [place] [address]- 9736 Nov, [facility] [place] [facility] [address] [id number] [place] [address]- 4916 Nov, [facility] [place] [facility] [address] [id number] [place] [address]- 2546 Nov, [facility] [place] [facility] [address] [id number] [address]- 2546 Nov, [facility] [place] [facility] [address] [id number] [place] [address]- 2546 Oct, [facility] [place] [facility] [address] [id number] [place] [address]- 0266 Oct, [facility] [place] [facility] [address] [id number] [place] [address]- 2546 Oct, [facility] [place] [facility] [address] [id number] [place] [address]- 6641 Oct, [facility] [address] [id number] [place] [address]- 3613 Oct, [facility] [place] [facility] [address] [id number] [place] [address]- 6691 Oct, [facility] [address] [id number] [place] [address]- 2701 Sep, [facility] [place] [facility] [address] [id number] [place] [address]- 6448 Sep, [facility] [address] [id number] [place] [address]- 1831 Sep, [facility] [place] [facility] [address] [id number] [place] [address]- 6193 Sep, [facility] [address] [id number] [place] [address]- 1039 Sep, [facility] [place] [facility] [address] [id number] [place] [address]- 9720 Sep, [facility] [place] [facility] [address] [id number] [place] [address]- 9357 Sep, [facility] [place] [facility] [address] [id number] [place] [address]- 3203 Sep, [facility] [place] [facility] [address] [id number] [place] [address]- 8351 Aug, [facility] [place] [facility] [address] [id number] [place] [address] Aug, [facility] [place] [facility] [address] [id number] [place] [address] Aug, [facility] [place] [facility] [address] [id number] [place] [address] Aug, [facility] [place] [facility] [address] [id number] [place] [address] Aug, [facility] [place] [facility] [address] [id number] [place] [address] Aug, [facility] [place] [facility] [address] [id number] [place] [address] Aug, [facility] [place] [facility] [address] [id number] [place] [address] Aug, [facility] [place] [facility] [address] [id number] [place] [address] Jul, [facility] [place] [facility] [address] [id number] [place] [address] Jul, [facility] [place] [facility] [address] [id number] [place] [address] Jul, [facility] [place] [facility] [address] [facility] [id number] [place] [address] Jul, [facility] [place] [facility] [address] [id number] [place] [address] Jul, [facility] [place] [facility] [address] [id number] [place] [address] Jul, [facility] [place] [facility] [address] [id number] [place] [address] Jul, [facility] [place] [facility] [address] [facility] [id number] [place] [address] Jul, [facility] [place] [facility] [address] [id number], [place] [address] Jul, [facility] [place] [facility] [address] [id number] [place] [address] Jun, [facility] [place] [facility] [address] [id number] [place] [address] Jun, [facility] [place] [facility] [address] [id number] [place] [address] Jun, [facility] [place] [facility] [address] [id number], [place] [address] 24 Jun, 2012 [facility] [address] [id number] [place] [address] Oct, [facility] [place] [facility] [address] [id number] [place] [address] 2546 Aug, [facility] [address] [id number] [place] [address] 25[address] Oct, [facility] [place] [facility] [address] [id number] [place] [address] 2546 23 Sep, 2010 [facility] [address] [id number] [place] [address] 22 Sep, 2010 [facility] [place] [facility] [address] [id number] [place] [address] 16 Sep, 2010 [facility] [address] [id number] [place] [address] Sep, [facility] [place] [facility] [address] [id number] [place] [address] Sep, [facility] [place] [facility] [address] [id number] [place] [address] Sep, [facility] [place] [facility] [address] [id number] [place] [address] Sep, [facility] [place] [facility] [address] [id number] [place] [address] 08 Sep, 2010 [facility] [place] [facility] [address] [id number] [place] [address]46 08 Sep, 2010 [facility] [place] [facility] [address] [id number] [place] [address] 25[address] Sep, [facility] [place] [facility] [address] [id number] [place] [address] Aug, [facility] [place] [facility] [address] [id number] [place] [address] 25[address] Aug, [facility] [place] [facility] [id number] [address] 18 Jul, 2010 [facility] [id number] [address] Jan, [facility] [id number] [address] Dec, [facility] [id number] [address] Nov, [facility] [address] [id number] Sep, [facility] [id number] [place] [address] Sep, [facility] [id number] [place] [address] Jul, [facility] [id number] [place] [address] 16 Jul, 2009 [facility] [id number] [address] Jul, [facility] [id number], [place] [address] Jul, [facility] [id number], [place] [address] Jul, IMMUNIZATIONS No Known Immunizations SOCIAL HISTORY Never Assessed REASON FOR VISIT 2 month f/renan Angel RN PLAN OF CARE Activity Details Follow Up 6 Weeks Reason: VITAL SIGNS Height 59 in 2017-06-10 Blood pressure systolic 122 mmHg 2017-06-10 Blood pressure diastolic 62 mmHg 2017-06-10 MEDICATIONS Medication Instructions Dosage Frequency Start Date End Date Duration Status Albuterol Sulfate (2.5 MG/3ML) 0.083% Inhalation 2 times a day 3 ml 12h 07 Dec, 2015 Active Nebulizer/Tubing/Mouthpiece ... as directed Dec, Active Metoprolol Succinate ER 25MG Orally Once a day 1 tablet 24h 90 Active Flonase 50 MCG/ACT Nasally Once a day 1 spray in each nostril 24h Mar, 30 day(s) Active Nexium 40 mg Orally Once a day 1 capsule 24h May, 30 day(s) Active MetFORMIN HCl ER 500 MG Orally twice a day 2 tablet 12h Apr, Active Ibuprofen 600 MG Orally every 6 hrs 1 tablet 6h Dec, 30 day(s) Active Furosemide 40MG TAKE ONE TABLET BY MOUTH ONCE DAILY 90 Active ProAir HFA 108MCG/A INHALE TWO PUFFS BY MOUTH EVERY 6 HOURS NEEDED FOR SHORTNESS OF BREATH OR COUGH 25 Active Warfarin Sodium 6 MG Orally Once a day 1.5 tablet daily on M,T,,,Tue and 1 Tablets on W, and Sat 24h 30 days Active RESULTS No Results PROCEDURES Procedure Date Ordered Result Body Site FOOT ARCH SUPP PREMOLD LNGTUDNL EA Jun 10, 2017 INJ TENDON SHEATH/LIGAMENT Jun 10, 2017 [facility] VISIT ESTABLISHED PATIENT Jun 10, 2017 DEPO MEDROL 40 MG/ML Jun 10, 2017 INSTRUCTIONS MEDICATIONS ADMINISTERED No Known Medications [...]
--- OUTSIDE RECORDS SUMMARY | 2018-03-06 17:00 | XMS REPORT | Continuity of Care Document ---
Author Author Formerly [facility], Later [facility] Address Unknown Phone Unavailable Allergies Active Description Code Type Severity Reaction Onset Reported/Identified Relationship to Patient Clinical Status Yes Iodinated Contrast Media - IV Dye [id number] Drug Allergy Unknown N/A 05/28 Yes Iodinated Contrast Media - Oral and [id number] Drug Allergy Unknown N/A 09/2006 Yes Iodinated Contrast- Oral and IV Dye [id number] Drug Allergy Unknown N/A 09/2006 Yes Penicillins [id number] Drug Allergy Unknown N/A 05/29/2006 Yes vancomycin [id number] Drug Allergy Unknown N/A 05/29/2006 Yes hydrocodone [...] Drug Allergy N/A N/A 02/09/2013 Yes tramadol [id number] Drug Allergy Unknown N/A 01/22/2014 Medications There [...] medication for a long time 2009 CHARITY POWER SHOVEL OPERATOR HELPER, MARCI A 424.1 AORTIC STENOSIS 2009 CHARITY POWER SHOVEL OPERATOR HELPER, MARCI A V58.69 taking high-risk medication for a long time 2009 MADL POWER SHOVEL OPERATOR HELPER, JHONATAN L 424.1 AORTIC STENOSIS 2009 MADL POWER SHOVEL OPERATOR HELPER, JHONATAN L V58.69 taking high-risk medication for [...] medication for a long time 2009 MADL POWER SHOVEL OPERATOR HELPER, JHONATAN L 424.1 AORTIC STENOSIS 2009 MADL POWER SHOVEL OPERATOR HELPER, JHONATAN L V58.69 taking high-risk medication for a long time 2009 MADL POWER SHOVEL OPERATOR HELPER, JHONATAN L 424.1 AORTIC STENOSIS 2009 MADL POWER SHOVEL OPERATOR HELPER, JHONATAN L V58.69 taking high-risk medication for a long time 2009 MADL POWER SHOVEL OPERATOR HELPER, JHONATAN L 424.1 AORTIC STENOSIS 2009 MADL POWER SHOVEL OPERATOR HELPER, JHONATAN L V58.69 taking high-risk medication for a long time 2009 CURRIE DO, AMELIA K 424.1 AORTIC STENOSIS 2009 CURRIE DO, AMELIA K V58.69 taking high-risk medication for a long time 2009 MADL POWER SHOVEL OPERATOR HELPER, JHONATAN L 424.1 AORTIC STENOSIS 2009 MADL POWER SHOVEL OPERATOR HELPER, JHONATAN L V58.69 taking high-risk medication for a long time 2009 MADL POWER SHOVEL OPERATOR HELPER, JHONATAN L 424.1 AORTIC STENOSIS 2009 MADL POWER SHOVEL OPERATOR HELPER, JHONATAN L V58.69 taking high-risk medication for a long time 2009 MADL POWER SHOVEL OPERATOR HELPER, JHONATAN L 424.1 AORTIC STENOSIS 2009 MADL POWER SHOVEL OPERATOR HELPER, JHONATAN L V58.69 taking high-risk medication for a long time 2009 CURRIE DO, AMELIA K 424.1 AORTIC STENOSIS 2009 CURRIE DO, AMELIA K V58.69 taking high-risk medication for a long time 2009 MADL POWER SHOVEL OPERATOR HELPER, JHONATAN L 424.1 AORTIC STENOSIS 2009 MADL POWER SHOVEL OPERATOR HELPER, JHONATAN L V58.69 taking high-risk medication for a long time 2009 MADL POWER SHOVEL OPERATOR HELPER, JHONATAN L 424.1 AORTIC STENOSIS 2009 MADL POWER SHOVEL OPERATOR HELPER, JHONATAN L V58.69 taking high-risk medication for a long time 2009 MAVERICK POWER SHOVEL OPERATOR HELPER, ZACHARIAH R 424.1 AORTIC STENOSIS 2009 MAVERICK POWER SHOVEL OPERATOR HELPER, ZACHARIAH R V58.69 taking high-risk medication for a long time 2009 MADL POWER SHOVEL OPERATOR HELPER, JHONATAN L 424.1 AORTIC STENOSIS 2009 MADL POWER SHOVEL OPERATOR HELPER, JHONATAN L V58.69 taking high-risk medication for a long time 2009 MADL POWER SHOVEL OPERATOR HELPER, JHONATAN L 424.1 AORTIC STENOSIS 2009 MADL POWER SHOVEL OPERATOR HELPER, JHONATAN L V58.69 taking high-risk medication for a long time 2009 MADL POWER SHOVEL OPERATOR HELPER, JHONATAN L 424.1 AORTIC STENOSIS 2009 MADL POWER SHOVEL OPERATOR HELPER, JHONATAN L V58.69 taking high-risk medication for a long time 2009 MADL POWER SHOVEL OPERATOR HELPER, JHONATAN L 424.1 AORTIC STENOSIS 2009 MADL POWER SHOVEL OPERATOR HELPER, JHONATAN L V58.69 taking high-risk medication for a long time 2009 MADL POWER SHOVEL OPERATOR HELPER, JHONATAN L 424.1 AORTIC STENOSIS 2009 MADL POWER SHOVEL OPERATOR HELPER, JHONATAN L V58.69 taking high-risk medication for a long time 2009 MADL POWER SHOVEL OPERATOR HELPER, JHONATAN L 424.1 AORTIC STENOSIS 2009 MADL POWER SHOVEL OPERATOR HELPER, JHONATAN L V58.69 taking high-risk medication for a long time 2009 CURRIE DO, AMELIA K 424.1 AORTIC STENOSIS 2009 CURRIE DO, AMELIA K V58.69 taking high-risk medication for a long time 2009 MADL POWER SHOVEL OPERATOR HELPER, JHONATAN L 424.1 AORTIC STENOSIS 2009 MADL POWER SHOVEL OPERATOR HELPER, JHONATAN L V58.69 taking high-risk medication for a long time 2009 BLANCHE POWER SHOVEL OPERATOR HELPER, BHARAT S 424.1 AORTIC STENOSIS 2009 BLANCHE POWER SHOVEL OPERATOR HELPER, BHARAT S V58.69 taking high-risk medication for a long time 2009 424.1 AORTIC STENOSIS 2009 V58.69 taking high- risk medication for a long time 2009 MAVERICK POWER SHOVEL OPERATOR HELPER, ZACHARIAH R 424.1 AORTIC STENOSIS 2009 MAVERICK POWER SHOVEL OPERATOR HELPER, ZACHARIAH R V58.69 taking high-risk medication for a long time 2009 ALMONTE DDS, SEA 424.1 AORTIC STENOSIS 2009 ALMONTE DDS, SAE [...] DO, AMELIA K 786.2 COUGH 07/22/2009 CHARITY POWER SHOVEL OPERATOR HELPER, MARCI A 786.05 SHORTNESS OF BREATH 07/22/2009 CHARITY POWER SHOVEL OPERATOR HELPER, MARCI A 786.2 COUGH 07/22/2009 MADL POWER SHOVEL OPERATOR HELPER, JHONATAN L 786.05 SHORTNESS OF BREATH 07/22/2009 MADL POWER SHOVEL OPERATOR HELPER, JHONATAN L 786.2 COUGH 07/22/2009 786.05 SHORTNESS OF BREATH 07/22/2009 786.2 COUGH 07/22/2009 CURRIE DO, AMELIA K 786.05 SHORTNESS OF BREATH 07/22/2009 CURRIE DO, AMELIA K 786.2 COUGH 07/22/2009 CURRIE DO, AMELIA K 786.05 SHORTNESS OF BREATH 07/22/2009 CURRIE DO, AMELIA K 786.2 COUGH 07/22/2009 MADL POWER SHOVEL OPERATOR HELPER, JHONATAN L 786.05 SHORTNESS OF BREATH 07/22/2009 MADL POWER SHOVEL OPERATOR HELPER, JHONATAN L 786.2 COUGH 07/22/2009 MADL POWER SHOVEL OPERATOR HELPER, JHONATAN L 786.05 SHORTNESS OF BREATH 07/22/2009 MADL POWER SHOVEL OPERATOR HELPER, JHONATAN L 786.2 COUGH 07/22/2009 MADL POWER SHOVEL OPERATOR HELPER, JHONATAN L 786.05 SHORTNESS OF BREATH 07/22/2009 MADL POWER SHOVEL OPERATOR HELPER, JHONATAN L 786.2 COUGH 07/22/2009 CURRIE DO, AMELIA K 786.05 SHORTNESS OF BREATH 07/22/2009 CURRIE DO, AMELIA K 786.2 COUGH 07/22/2009 MADL POWER SHOVEL OPERATOR HELPER, JHONATAN L 786.05 SHORTNESS OF BREATH 07/22/2009 MADL POWER SHOVEL OPERATOR HELPER, JHONATAN L 786.2 COUGH 07/22/2009 MADL POWER SHOVEL OPERATOR HELPER, JHONATAN L 786.05 SHORTNESS OF BREATH 07/22/2009 MADL POWER SHOVEL OPERATOR HELPER, JHONATAN L 786.2 COUGH 07/22/2009 MADL POWER SHOVEL OPERATOR HELPER, JHONATAN L 786.05 SHORTNESS OF BREATH 07/22/2009 MADL POWER SHOVEL OPERATOR HELPER, JHONATAN L 786.2 COUGH 07/22/2009 CURRIE DO, AMELIA K 786.05 SHORTNESS OF BREATH 07/22/2009 CURRIE DO, AMELIA K 786.2 COUGH 07/22/2009 MADL POWER SHOVEL OPERATOR HELPER, JHONATAN L 786.05 SHORTNESS OF BREATH 07/22/2009 MADL POWER SHOVEL OPERATOR HELPER, JHONATAN L 786.2 COUGH 07/22/2009 MADL POWER SHOVEL OPERATOR HELPER, JHONATAN L 786.05 SHORTNESS OF BREATH 07/22/2009 MADL POWER SHOVEL OPERATOR HELPER, JHONATAN L 786.2 COUGH 07/22/2009 MAVERICK POWER SHOVEL OPERATOR HELPER, ZACHARIAH R 786.05 SHORTNESS OF BREATH 07/22/2009 MAVERICK POWER SHOVEL OPERATOR HELPER, ZACHARIAH R 786.2 COUGH 07/22/2009 MADL POWER SHOVEL OPERATOR HELPER, JHONATAN L 786.05 SHORTNESS OF BREATH 07/22/2009 MADL POWER SHOVEL OPERATOR HELPER, JHONATAN L 786.2 COUGH 07/22/2009 MADL POWER SHOVEL OPERATOR HELPER, JHONATAN L 786.05 SHORTNESS OF BREATH 07/22/2009 MADL POWER SHOVEL OPERATOR HELPER, JHONATAN L 786.2 COUGH 07/22/2009 MADL POWER SHOVEL OPERATOR HELPER, JHONATAN L 786.05 SHORTNESS OF BREATH 07/22/2009 MADL POWER SHOVEL OPERATOR HELPER, JHONATAN L 786.2 COUGH 07/22/2009 MADL POWER SHOVEL OPERATOR HELPER, JHONATAN L 786.05 SHORTNESS OF BREATH 07/22/2009 MADL POWER SHOVEL OPERATOR HELPER, JHONATAN L 786.2 COUGH 07/22/2009 MADL POWER SHOVEL OPERATOR HELPER, JHONATAN L 786.05 SHORTNESS OF BREATH 07/22/2009 MADL POWER SHOVEL OPERATOR HELPER, JHONATAN L 786.2 COUGH 07/22/2009 MADL POWER SHOVEL OPERATOR HELPER, JHONATAN L 786.05 SHORTNESS OF BREATH 07/22/2009 MADL POWER SHOVEL OPERATOR HELPER, JHONATAN L 786.2 COUGH 07/22/2009 CURRIE DO, AMELIA K 786.05 SHORTNESS OF BREATH 07/22/2009 CURRIE DO, AMELIA K 786.2 COUGH 07/22/2009 MADL POWER SHOVEL OPERATOR HELPER, JHONATAN L 786.05 SHORTNESS OF BREATH 07/22/2009 MADL POWER SHOVEL OPERATOR HELPER, JHONATAN L 786.2 COUGH 07/22/2009 BLANCHE POWER SHOVEL OPERATOR HELPER, BHARAT S 786.05 SHORTNESS OF BREATH 07/22/2009 BLANCHE POWER SHOVEL OPERATOR HELPER, BHARAT S 786.2 COUGH 07/22/2009 786.05 SHORTNESS OF BREATH 07/22/2009 786.2 COUGH 07/22/2009 MAVERICK POWER SHOVEL OPERATOR HELPER, ZACHARIAH R 786.05 SHORTNESS OF BREATH 07/22/2009 MAVERICK POWER SHOVEL OPERATOR HELPER, ZACHARIAH R 786.2 COUGH 07/22/2009 ALMONTE DDS, SAE 786.05 SHORTNESS OF BREATH 07/22/2009 ALMONTE DDS, SAE 786.2 COUGH 07/31/2009 OK CHAVIS, MAGDALENA V72.31 PRIVATE INVESTIGATOR SURVEILLANCE EXAM, ROUTINE 07/31/2009 MAGDALENA EUCEDA MD V72.31 PRIVATE INVESTIGATOR SURVEILLANCE EXAM, ROUTINE 07/31/2009 MAGDALENA EUCEDA MD V72.31 PRIVATE INVESTIGATOR SURVEILLANCE EXAM, ROUTINE 07/31/2009 V72.31 PRIVATE INVESTIGATOR SURVEILLANCE EXAM, ROUTINE 07/31/2009 MAGDALENA EUCEDA MD V72.31 PRIVATE INVESTIGATOR SURVEILLANCE EXAM, ROUTINE 07/31/2009 V72.31 PRIVATE INVESTIGATOR SURVEILLANCE EXAM, ROUTINE 07/31/2009 V72.31 PRIVATE INVESTIGATOR SURVEILLANCE EXAM, ROUTINE 07/31/2009 V72.31 PRIVATE INVESTIGATOR SURVEILLANCE EXAM, ROUTINE 07/31/2009 V72.31 PRIVATE INVESTIGATOR SURVEILLANCE EXAM, ROUTINE 07/31/2009 V72.31 PRIVATE INVESTIGATOR SURVEILLANCE EXAM, ROUTINE 07/31/2009 V72.31 PRIVATE INVESTIGATOR SURVEILLANCE EXAM, ROUTINE 07/31/2009 V72.31 PRIVATE INVESTIGATOR SURVEILLANCE EXAM, ROUTINE 07/31/2009 V72.31 PRIVATE INVESTIGATOR SURVEILLANCE EXAM, ROUTINE 07/31/2009 FELIBERTO GARCIA APRN V72.31 PRIVATE INVESTIGATOR SURVEILLANCE EXAM, ROUTINE 07/31/2009 MAGDALENA EUCEDA MD V72.31 PRIVATE INVESTIGATOR SURVEILLANCE EXAM, ROUTINE 07/31/2009 MAGDALENA EUCEDA MD V72.31 PRIVATE INVESTIGATOR SURVEILLANCE EXAM, ROUTINE 07/31/2009 ALLI HUNT MD V72.31 PRIVATE INVESTIGATOR SURVEILLANCE EXAM, ROUTINE 07/31/2009 MAGDALENA EUCEDA MD V72.31 PRIVATE INVESTIGATOR SURVEILLANCE EXAM, ROUTINE 07/31/2009 CURRIE DOAMELIA V72.31 PRIVATE INVESTIGATOR SURVEILLANCE EXAM, ROUTINE 07/31/2009 CURRIE DO, AMELIA K V72.31 PRIVATE INVESTIGATOR SURVEILLANCE EXAM, ROUTINE 07/31/2009 CURRIE DO, AMELIA K V72.31 PRIVATE INVESTIGATOR SURVEILLANCE EXAM, ROUTINE 07/31/2009 CURRIE DO, AMELIA K V72.31 PRIVATE INVESTIGATOR SURVEILLANCE EXAM, ROUTINE 07/31/2009 CURRIE DO, AMELIA K V72.31 PRIVATE INVESTIGATOR SURVEILLANCE EXAM, ROUTINE 07/31/2009 CHARITY POWER SHOVEL OPERATOR HELPER, MARCI A V72.31 PRIVATE INVESTIGATOR SURVEILLANCE EXAM, ROUTINE 07/31/2009 MADL POWER SHOVEL OPERATOR HELPER, JHONATAN L V72.31 PRIVATE INVESTIGATOR SURVEILLANCE EXAM, ROUTINE 07/31/2009 V72.31 PRIVATE INVESTIGATOR SURVEILLANCE EXAM, ROUTINE 07/31/2009 CURRIE DO, AMELIA K V72.31 PRIVATE INVESTIGATOR SURVEILLANCE EXAM, ROUTINE 07/31/2009 CURRIE DO, AMELIA K V72.31 PRIVATE INVESTIGATOR SURVEILLANCE EXAM, ROUTINE 07/31/2009 MADL POWER SHOVEL OPERATOR HELPER, JHONATAN L V72.31 PRIVATE INVESTIGATOR SURVEILLANCE EXAM, ROUTINE 07/31/2009 MADL POWER SHOVEL OPERATOR HELPER, JHONATAN L V72.31 PRIVATE INVESTIGATOR SURVEILLANCE EXAM, ROUTINE 07/31/2009 MADL POWER SHOVEL OPERATOR HELPER, JHONATAN L V72.31 PRIVATE INVESTIGATOR SURVEILLANCE EXAM, ROUTINE 07/31/2009 CURRIE DO, AMELIA K V72.31 PRIVATE INVESTIGATOR SURVEILLANCE EXAM, ROUTINE 07/31/2009 MADL POWER SHOVEL OPERATOR HELPER, JHONATAN L V72.31 PRIVATE INVESTIGATOR SURVEILLANCE EXAM, ROUTINE 07/31/2009 MADL POWER SHOVEL OPERATOR HELPER, JHONATAN L V72.31 PRIVATE INVESTIGATOR SURVEILLANCE EXAM, ROUTINE 07/31/2009 MADL POWER SHOVEL OPERATOR HELPER, JHONATAN L V72.31 PRIVATE INVESTIGATOR SURVEILLANCE EXAM, ROUTINE 07/31/2009 CURRIE DO, AMELIA K V72.31 PRIVATE INVESTIGATOR SURVEILLANCE EXAM, ROUTINE 07/31/2009 MADL POWER SHOVEL OPERATOR HELPER, JHONATAN L V72.31 PRIVATE INVESTIGATOR SURVEILLANCE EXAM, ROUTINE 07/31/2009 MADL POWER SHOVEL OPERATOR HELPER, JHONATAN L V72.31 PRIVATE INVESTIGATOR SURVEILLANCE EXAM, ROUTINE 07/31/2009 MAVERICK POWER SHOVEL OPERATOR HELPER, ZACHARIAH R V72.31 PRIVATE INVESTIGATOR SURVEILLANCE EXAM, ROUTINE 07/31/2009 MADL POWER SHOVEL OPERATOR HELPER, JHONATAN L V72.31 PRIVATE INVESTIGATOR SURVEILLANCE EXAM, ROUTINE 07/31/2009 MADL POWER SHOVEL OPERATOR HELPER, JHONATAN L V72.31 PRIVATE INVESTIGATOR SURVEILLANCE EXAM, ROUTINE 07/31/2009 MADL POWER SHOVEL OPERATOR HELPER, JHONATAN L V72.31 PRIVATE INVESTIGATOR SURVEILLANCE EXAM, ROUTINE 07/31/2009 MADL POWER SHOVEL OPERATOR HELPER, JHONATAN L V72.31 PRIVATE INVESTIGATOR SURVEILLANCE EXAM, ROUTINE 07/31/2009 MADL POWER SHOVEL OPERATOR HELPER, JHONATAN L V72.31 PRIVATE INVESTIGATOR SURVEILLANCE EXAM, ROUTINE 07/31/2009 MADL POWER SHOVEL OPERATOR HELPER, JHONATAN L V72.31 PRIVATE INVESTIGATOR SURVEILLANCE EXAM, ROUTINE 07/31/2009 CURRIE DO, AMELIA K V72.31 PRIVATE INVESTIGATOR SURVEILLANCE EXAM, ROUTINE 07/31/2009 MADL POWER SHOVEL OPERATOR HELPER, JHONATAN L V72.31 PRIVATE INVESTIGATOR SURVEILLANCE EXAM, ROUTINE 07/31/2009 BLANCHE POWER SHOVEL OPERATOR HELPER, BHARAT S V72.31 PRIVATE INVESTIGATOR SURVEILLANCE EXAM, ROUTINE 07/31/2009 V72.31 PRIVATE INVESTIGATOR SURVEILLANCE EXAM, ROUTINE 07/31/2009 MAVERICK POWER SHOVEL OPERATOR HELPER, ZACHARIAH R V72.31 PRIVATE INVESTIGATOR SURVEILLANCE EXAM, ROUTINE 07/31/2009 ALMONTE DDS, SAE V72.31 PRIVATE INVESTIGATOR SURVEILLANCE EXAM, ROUTINE 10/15/2009 MAGDALENA EUCEDA MD 719.08 [...] MARCI A 719.08 KNEE SWELLING 10/15/2009 MADL POWER SHOVEL OPERATOR HELPER, JHONATAN L 719.08 KNEE SWELLING 10/15/2009 719.08 KNEE SWELLING 10/15/2009 CURRIE DO, AMELIA K 719.08 KNEE SWELLING 10/15/2009 CURRIE DO, AMELIA K 719.08 KNEE SWELLING 10/15/2009 MADL POWER SHOVEL OPERATOR HELPER, JHONATAN L 719.08 KNEE SWELLING 10/15/2009 MADL POWER SHOVEL OPERATOR HELPER, JHONATAN L 719.08 KNEE SWELLING 10/15/2009 MADL POWER SHOVEL OPERATOR HELPER, JHONATAN L 719.08 KNEE SWELLING 10/15/2009 CURRIE DO, AMELIA K 719.08 KNEE SWELLING 10/15/2009 MADL POWER SHOVEL OPERATOR HELPER, JHONATAN L 719.08 KNEE SWELLING 10/15/2009 MADL POWER SHOVEL OPERATOR HELPER, JHOANTAN L 719.08 KNEE SWELLING 10/15/2009 [facility] POWER SHOVEL OPERATOR HELPER, JHONATAN L 719.08 KNEE SWELLING 10/15/2009 CURRIE DO, AMELIA K 719.08 KNEE SWELLING 10/15/2009 MADL POWER SHOVEL OPERATOR HELPER, JHONATAN L 719.08 KNEE SWELLING 10/15/2009 [facility] POWER SHOVEL OPERATOR HELPER, JHONATAN L 719.08 KNEE SWELLING 10/15/2009 MAVERICK POWER SHOVEL OPERATOR HELPER, ZACHARIAH R 719.08 KNEE SWELLING 10/15/2009 [facility] P[facility] SHOVEL OPERATOR HELPER, JHONATAN L 719.08 KNEE SWELLING 10/15/2009 [facility] POWER SHOVEL OPERATOR HELPER, JHONATAN L 719.08 KNEE SWELLING 10/15/2009 MADL POWER SHOVEL OPERATOR HELPER, JHONATAN L 719.08 KNEE SWELLING 10/15/2009 MADL POWER SHOVEL OPERATOR HELPER, JHONATAN L 719.08 KNEE SWELLING 10/15/2009 MADL POWER SHOVEL OPERATOR HELPER, JHONATAN L 719.08 KNEE SWELLING 10/15/2009 MADL POWER SHOVEL OPERATOR HELPER, JHONATAN L 719.08 KNEE SWELLING 10/15/2009 CURRIE DO, AMELIA K 719.08 KNEE SWELLING 10/15/2009 MADL POWER SHOVEL OPERATOR HELPER, JHONATAN L 719.08 KNEE SWELLING 10/15/2009 BLANCHE POWER SHOVEL OPERATOR HELPER, BHARAT S 719.08 KNEE SWELLING 10/15/2009 719.08 [...] PAIN IN JOINT, LOWER LEG 10/21/2009 MADL POWER SHOVEL OPERATOR HELPER, JHONATAN L 719.46 PAIN IN JOINT, LOWER LEG 10/21/2009 719.46 PAIN IN JOINT , LOWER LEG 10/21/2009 CURRIE DO, AMELIA K 719.46 PAIN IN JOINT, LOWER LEG 10/21/2009 CURRIE DO, AMELIA K 719.46 PAIN IN JOINT, LOWER LEG 10/21/2009 MADL POWER SHOVEL OPERATOR HELPER, JHONATAN L 719.46 PAIN IN JOINT, LOWER LEG 10/21/2009 MADL POWER SHOVEL OPERATOR HELPER, JHONATAN L 719.46 PAIN IN JOINT, LOWER LEG 10/21/2009 MADL POWER SHOVEL OPERATOR HELPER, JHONATAN L 719.46 PAIN IN JOINT, LOWER LEG 10/21/2009 CURRIE DO, AMELIA K 719.46 PAIN IN JOINT, LOWER LEG 10/21/2009 MADL POWER SHOVEL OPERATOR HELPER, JHONATAN L 719.46 PAIN IN JOINT, LOWER LEG 10/21/2009 MADL POWER SHOVEL OPERATOR HELPER, JHONATAN L 719.46 PAIN IN JOINT, LOWER LEG 10/21/2009 MADL POWER SHOVEL OPERATOR HELPER, JHONATAN L 719.46 PAIN IN JOINT, LOWER LEG 10/21/2009 CURRIE DO, AMELIA K 719.46 PAIN IN JOINT, LOWER LEG 10/21/2009 MADL POWER SHOVEL OPERATOR HELPER, JHONATAN L 719.46 PAIN IN JOINT, LOWER LEG 10/21/2009 MADL POWER SHOVEL OPERATOR HELPER, JHONATAN L 719.46 PAIN IN JOINT, LOWER LEG 10/21/2009 MAVERICK FUCHS, ZACHARIAH R 719.46 PAIN IN JOINT, LOWER LEG 10/21/2009 MADL POWER SHOVEL OPERATOR HELPER, JHONATAN L 719.46 PAIN IN JOINT, LOWER LEG 10/21/2009 MADL POWER SHOVEL OPERATOR HELPER, JHONATAN L 719.46 PAIN IN JOINT, LOWER LEG 10/21/2009 MADL POWER SHOVEL OPERATOR HELPER, JHONATAN L 719.46 PAIN IN JOINT, LOWER LEG 10/21/2009 MADL POWER SHOVEL OPERATOR HELPER, JHONATAN L 719.46 PAIN IN JOINT, LOWER LEG 10/21/2009 MADL POWER SHOVEL OPERATOR HELPER, JHONATAN L 719.46 PAIN IN JOINT, LOWER LEG 10/21/2009 MADL POWER SHOVEL OPERATOR HELPER, JHONATAN L 719.46 PAIN IN JOINT, LOWER LEG 10/21/2009 CURRIE DO, AMELIA K 719.46 PAIN IN JOINT, LOWER LEG 10/21/2009 XIOMARAJennifer POWER SHOVEL OPERATOR HELPER, JHONATAN L 719.46 PAIN IN JOINT, LOWER [...] 715.16 OSTEOARTHROSIS, LOCALIZED, PRIMARY, LOWER LEG 11/06/2009 UCRRIE DO, AMELIA K 715.16 OSTEOARTHROSIS, LOCALIZED, PRIMARY, [...] OSTEOARTHROSIS, LOCALIZED, PRIMARY, LOWER LEG 11/06/2009 MADL POWER SHOVEL OPERATOR HELPER, JHONATAN L 715.16 OSTEOARTHROSIS, LOCALIZED, PRIMARY, LOWER LEG 11/06/2009 715.16 OSTEOARTHROSIS, LOCALIZED, PRIMARY, LOWER LEG 11/06/2009 CURRIE DO, AMELIA K 715.16 OSTEOARTHROSIS, LOCALIZED, PRIMARY, LOWER LEG 11/06/2009 CURRIE DO, AMELIA K 715.16 OSTEOARTHROSIS, LOCALIZED, PRIMARY, LOWER LEG 11/06/2009 MADL POWER SHOVEL OPERATOR HELPER, JHONATAN L 715.16 OSTEOARTHROSIS, LOCALIZED, PRIMARY, LOWER LEG 11/06/2009 MADL POWER SHOVEL OPERATOR HELPER, JHONATAN L 715.16 OSTEOARTHROSIS, LOCALIZED, PRIMARY, LOWER LEG 11/06/2009 MADL POWER SHOVEL OPERATOR HELPER, JHONATAN L 715.16 OSTEOARTHROSIS, LOCALIZED, PRIMARY, LOWER LEG 11/06/2009 CURRIE DO, AMELIA K 715.16 OSTEOARTHROSIS, LOCALIZED, PRIMARY, LOWER LEG 11/06/2009 MADL POWER SHOVEL OPERATOR HELPER, JHONATAN L 715.16 OSTEOARTHROSIS, LOCALIZED, PRIMARY, LOWER LEG 11/06/2009 MADL POWER SHOVEL OPERATOR HELPER, JHONATAN L 715.16 OSTEOARTHROSIS, LOCALIZED, PRIMARY, LOWER LEG 11/06/2009 MADL POWER SHOVEL OPERATOR HELPER, JHONATAN L 715.16 OSTEOARTHROSIS, LOCALIZED, PRIMARY, LOWER LEG 11/06/2009 CURRIE DO, AMELIA K 715.16 OSTEOARTHROSIS, LOCALIZED, PRIMARY, LOWER LEG 11/06/2009 MADL POWER SHOVEL OPERATOR HELPER, JHONATAN L 715.16 OSTEOARTHROSIS, LOCALIZED, PRIMARY, LOWER LEG 11/06/2009 MADL POWER SHOVEL OPERATOR HELPER, JHONATAN L 715.16 OSTEOARTHROSIS, LOCALIZED, PRIMARY, LOWER LEG 11/06/2009 MAVERICK POWER SHOVEL OPERATOR HELPER, ZACHARIAH R 715.16 OSTEOARTHROSIS, LOCALIZED, PRIMARY, LOWER LEG 11/06/2009 MADL POWER SHOVEL OPERATOR HELPER, JHONATAN L 715.16 OSTEOARTHROSIS, LOCALIZED, PRIMARY, LOWER LEG 11/06/2009 MADL POWER SHOVEL OPERATOR HELPER, JHONATAN L 715.16 OSTEOARTHROSIS, LOCALIZED, PRIMARY, LOWER LEG 11/06/2009 MADL POWER SHOVEL OPERATOR HELPER, JHONATAN L 715.16 OSTEOARTHROSIS, LOCALIZED, PRIMARY, LOWER LEG 11/06/2009 MADL POWER SHOVEL OPERATOR HELPER, JHONATAN L 715.16 OSTEOARTHROSIS, LOCALIZED, PRIMARY, LOWER LEG 11/06/2009 MADL POWER SHOVEL OPERATOR HELPER, JHONATAN L 715.16 OSTEOARTHROSIS, LOCALIZED, PRIMARY, LOWER LEG 11/06/2009 MADL POWER SHOVEL OPERATOR HELPER, JHONATAN L 715.16 OSTEOARTHROSIS, LOCALIZED, PRIMARY, LOWER LEG 11/06/2009 ROSEY DO, AMELIA K 715.16 OSTEOARTHROSIS, LOCALIZED, PRIMARY, LOWER LEG 11/06/2009 MADL POWER SHOVEL OPERATOR HELPER, JHONATAN L 715.16 OSTEOARTHROSIS, LOCALIZED, PRIMARY, LOWER LEG 11/06/2009 BLANCHE POWER SHOVEL OPERATOR HELPER, BHARAT S 715.16 OSTEOARTHROSIS, LOCALIZED, PRIMARY, LOWER LEG 11/06/2009 715.16 OSTEOARTHROSIS, LOCALIZED, PRIMARY, LOWER LEG 11/06/2009 MAVERICK POWER SHOVEL OPERATOR HELPER, ZACHARIAH R 715.16 OSTEOARTHROSIS, LOCALIZED, PRIMARY, LOWER [...] BRONCHITIS, WITH (ACUTE) EXACERBATION 12/03/2009 CURRIE DO, AMEILA K 491.21 OBSTRUCTIVE CHRONIC BRONCHITIS, WITH (ACUTE) EXACERBATION 12/03/2009 CURRIE DO, AMELIA K 491.21 OBSTRUCTIVE CHRONIC BRONCHITIS, WITH (ACUTE) EXACERBATION 12/03/2009 CURRIE DO, AMELIA K 491.21 OBSTRUCTIVE CHRONIC BRONCHITIS, WITH (ACUTE) EXACERBATION 12/03/2009 MARCI NASH APRN A 491.21 OBSTRUCTIVE CHRONIC BRONCHITIS, WITH (ACUTE) EXACERBATION 12/03/2009 MADL POWER SHOVEL OPERATOR HELPER, JHONATAN L 491.21 OBSTRUCTIVE CHRONIC BRONCHITIS, WITH (ACUTE) EXACERBATION 12/03/2009 491.21 OBSTRUCTIVE CHRONIC BRONCHITIS, WITH (ACUTE) EXACERBATION 12/03/2009 CURRIE DO, AMELIA K 491.21 OBSTRUCTIVE CHRONIC BRONCHITIS, WITH (ACUTE) EXACERBATION 12/03/2009 CURRIE DO, AMELAI K 491.21 OBSTRUCTIVE CHRONIC BRONCHITIS, WITH (ACUTE) EXACERBATION 12/03/2009 MADL POWER SHOVEL OPERATOR HELPER, JHONATAN L 491.21 OBSTRUCTIVE CHRONIC BRONCHITIS, WITH (ACUTE) EXACERBATION 12/03/2009 MADL POWER SHOVEL OPERATOR HELPER, JHONATAN L 491.21 OBSTRUCTIVE CHRONIC BRONCHITIS, WITH (ACUTE) EXACERBATION 12/03/2009 MADL POWER SHOVEL OPERATOR HELPER, JHONATAN L 491.21 OBSTRUCTIVE CHRONIC BRONCHITIS, WITH (ACUTE) EXACERBATION 12/03/2009 CURRIE DO, AMELIA K 491.21 OBSTRUCTIVE CHRONIC BRONCHITIS, WITH (ACUTE) EXACERBATION 12/03/2009 MADL POWER SHOVEL OPERATOR HELPER, JHONATAN L 491.21 OBSTRUCTIVE CHRONIC BRONCHITIS, WITH (ACUTE) EXACERBATION 12/03/2009 MADL POWER SHOVEL OPERATOR HELPER, JHONATAN L 491.21 OBSTRUCTIVE CHRONIC BRONCHITIS, WITH (ACUTE) EXACERBATION 12/03/2009 MADL POWER SHOVEL OPERATOR HELPER, JHONATAN L 491.21 OBSTRUCTIVE CHRONIC BRONCHITIS, WITH (ACUTE) EXACERBATION 12/03/2009 CURRIE DO, AMELIA K 491.21 OBSTRUCTIVE CHRONIC BRONCHITIS, WITH (ACUTE) EXACERBATION 12/03/2009 MADL POWER SHOVEL OPERATOR HELPER, JHONATAN L 491.21 OBSTRUCTIVE CHRONIC BRONCHITIS, WITH (ACUTE) EXACERBATION 12/03/2009 MADL POWER SHOVEL OPERATOR HELPER, JHONATAN L 491.21 OBSTRUCTIVE CHRONIC BRONCHITIS, WITH (ACUTE) EXACERBATION 12/03/2009 MAVERICK POWER SHOVEL OPERATOR HELPER, ZACHARIAH R 491.21 OBSTRUCTIVE CHRONIC BRONCHITIS, WITH (ACUTE) EXACERBATION 12/03/2009 MADL POWER SHOVEL OPERATOR HELPER, JHONATAN L 491.21 OBSTRUCTIVE CHRONIC BRONCHITIS, WITH (ACUTE) EXACERBATION 12/03/2009 MADL POWER SHOVEL OPERATOR HELPER, JHONATAN L 491.21 OBSTRUCTIVE CHRONIC BRONCHITIS, WITH (ACUTE) EXACERBATION 12/03/2009 MADL POWER SHOVEL OPERATOR HELPER, JHONATAN L 491.21 OBSTRUCTIVE CHRONIC BRONCHITIS, WITH (ACUTE) EXACERBATION 12/03/2009 MADL POWER SHOVEL OPERATOR HELPER, JHONATAN L 491.21 OBSTRUCTIVE CHRONIC BRONCHITIS, WITH (ACUTE) EXACERBATION 12/03/2009 MADL POWER SHOVEL OPERATOR HELPER, JHONATAN L 491.21 OBSTRUCTIVE CHRONIC BRONCHITIS, WITH (ACUTE) EXACERBATION 12/03/2009 MADL POWER SHOVEL OPERATOR HELPER, JHONATAN L 491.21 OBSTRUCTIVE CHRONIC BRONCHITIS, WITH (ACUTE) EXACERBATION 12/03/2009 AMELIA CURRIE DO 491.21 OBSTRUCTIVE CHRONIC BRONCHITIS, WITH (ACUTE) EXACERBATION 12/03/2009 MADL POWER SHOVEL OPERATOR HELPER, JHONATAN L 491.21 OBSTRUCTIVE CHRONIC BRONCHITIS, WITH (ACUTE) EXACERBATION 12/03/2009 BLANCHE POWER SHOVEL OPERATOR HELPER, BHARAT S 491.21 OBSTRUCTIVE CHRONIC BRONCHITIS, WITH (ACUTE) EXACERBATION 12/03/2009 491.21 OBSTRUCTIVE CHRONIC BRONCHITIS, WITH (ACUTE) EXACERBATION 12/03/2009 MAVERICK POWER SHOVEL OPERATOR HELPER, ZACHARIAH R 491.21 OBSTRUCTIVE CHRONIC BRONCHITIS, WITH [...] AMELIA K 477.9 ALLERGIC RHINITIS 01/01/2010 CHARITY POWER SHOVEL OPERATOR HELPER, MARCI A 477.9 ALLERGIC RHINITIS 01/01/2010 MADL POWER SHOVEL OPERATOR HELPER, JHONATAN L 477.9 ALLERGIC RHINITIS 01/01/2010 477.9 ALLERGIC RHINITIS 01/01/2010 CURRIE DO, AMELIA K 477.9 ALLERGIC RHINITIS 01/01/2010 CURRIE DO, AMELIA K 477.9 ALLERGIC RHINITIS 01/01/2010 MADL POWER SHOVEL OPERATOR HELPER, JHONATAN L 477.9 ALLERGIC RHINITIS 01/01/2010 MADL POWER SHOVEL OPERATOR HELPER, JHONATAN L 477.9 ALLERGIC RHINITIS 01/01/2010 MADL POWER SHOVEL OPERATOR HELPER, JHONATAN L 477.9 ALLERGIC RHINITIS 01/01/2010 CURRIE DO, AMELIA K 477.9 ALLERGIC RHINITIS 01/01/2010 MADL POWER SHOVEL OPERATOR HELPER, JHONATAN L 477.9 ALLERGIC RHINITIS 01/01/2010 MADL POWER SHOVEL OPERATOR HELPER, JHONATAN L 477.9 ALLERGIC RHINITIS 01/01/2010 MADL POWER SHOVEL OPERATOR HELPER, JHONATAN L 477.9 ALLERGIC RHINITIS 01/01/2010 CURRIE DO, AMELIA K 477.9 ALLERGIC RHINITIS 01/01/2010 MADL POWER SHOVEL OPERATOR HELPER, JHONATAN L 477.9 ALLERGIC RHINITIS 01/01/2010 MADL POWER SHOVEL OPERATOR HELPER, JHONATAN L 477.9 ALLERGIC RHINITIS 01/01/2010 MAVERICK POWER SHOVEL OPERATOR HELPER, ZACHARIAH R 477.9 ALLERGIC RHINITIS 01/01/2010 MADL POWER SHOVEL OPERATOR HELPER, JHONATAN L 477.9 ALLERGIC RHINITIS 01/01/2010 MADL POWER SHOVEL OPERATOR HELPER, JHONATAN L 477.9 ALLERGIC RHINITIS 01/01/2010 MADL POWER SHOVEL OPERATOR HELPER, JHONATAN L 477.9 ALLERGIC RHINITIS 01/01/2010 MADL POWER SHOVEL OPERATOR HELPER, JHONATAN L 477.9 ALLERGIC RHINITIS 01/01/2010 MADL POWER SHOVEL OPERATOR HELPER, JHONATAN L 477.9 ALLERGIC RHINITIS 01/01/2010 MADL POWER SHOVEL OPERATOR HELPER, JHONATAN L 477.9 ALLERGIC RHINITIS 01/01/2010 CURRIE DO, AMELIA K 477.9 ALLERGIC RHINITIS 01/01/2010 MADL POWER SHOVEL OPERATOR HELPER, JHONATAN L 477.9 ALLERGIC RHINITIS 01/01/2010 BLANCHE POWER SHOVEL OPERATOR HELPER, BHARAT S 477.9 ALLERGIC RHINITIS 01/01/2010 477.9 ALLERGIC RHINITIS 01/01/2010 MAVERICK POWER SHOVEL OPERATOR HELPER, ZACHARIAH R 477.9 ALLERGIC RHINITIS 01/01/2010 ALMONTE [...] LUMP OR MASS IN BREAST 01/27/2010 CHARITY POWER SHOVEL OPERATOR HELPER, MARCI A 611.72 LUMP OR MASS IN BREAST 01/27/2010 MADL POWER SHOVEL OPERATOR HELPER, JHONATAN L 611.72 LUMP OR MASS IN BREAST 01/27/2010 611.72 LUMP OR MASS IN BREAST 01/27/2010 CURRIE DO, AMELIA K 611.72 LUMP OR MASS IN BREAST 01/27/2010 CURRIE DO, AMELIA K 611.72 LUMP OR MASS IN BREAST 01/27/2010 MADL POWER SHOVEL OPERATOR HELPER, JHONATAN L 611.72 LUMP OR MASS IN BREAST 01/27/2010 MADL POWER SHOVEL OPERATOR HELPER, JHONATAN L 611.72 LUMP OR MASS IN BREAST 01/27/2010 MADL POWER SHOVEL OPERATOR HELPER, JHONATAN L 611.72 LUMP OR MASS IN BREAST 01/27/2010 CURRIE DO, AMELIA K 611.72 LUMP OR MASS IN BREAST 01/27/2010 MADL POWER SHOVEL OPERATOR HELPER, JHONATAN L 611.72 LUMP OR MASS IN BREAST 01/27/2010 MADL POWER SHOVEL OPERATOR HELPER, JHONATAN L 611.72 LUMP OR MASS IN BREAST 01/27/2010 MADL POWER SHOVEL OPERATOR HELPER, JHONATAN L 611.72 LUMP OR MASS IN BREAST 01/27/2010 CURRIE DO, AMELIA K 611.72 LUMP OR MASS IN BREAST 01/27/2010 MADL POWER SHOVEL OPERATOR HELPER, JHONATAN L 611.72 LUMP OR MASS IN BREAST 01/27/2010 MADL POWER SHOVEL OPERATOR HELPER, JHONATAN L 611.72 LUMP OR MASS IN BREAST 01/27/2010 MAVERICK POWER SHOVEL OPERATOR HELPER, ZACHARIAH R 611.72 LUMP OR MASS IN BREAST 01/27/2010 MADL POWER SHOVEL OPERATOR HELPER, JHONATAN L 611.72 LUMP OR MASS IN BREAST 01/27/2010 MADL POWER SHOVEL OPERATOR HELPER, JHONATAN L 611.72 LUMP OR MASS IN BREAST 01/27/2010 MADL POWER SHOVEL OPERATOR HELPER, JHONATAN L 611.72 LUMP OR MASS IN BREAST 01/27/2010 MADL POWER SHOVEL OPERATOR HELPER, JHONATAN L 611.72 LUMP OR MASS IN BREAST 01/27/2010 MADL POWER SHOVEL OPERATOR HELPER, JHONATAN L 611.72 LUMP OR MASS IN BREAST 01/27/2010 MADL POWER SHOVEL OPERATOR HELPER, JHONATAN L 611.72 LUMP OR MASS IN BREAST 01/27/2010 CURRIE DO, AMELIA K 611.72 LUMP OR MASS IN BREAST 01/27/2010 MADL POWER SHOVEL OPERATOR HELPER, JHONATAN L 611.72 LUMP OR MASS IN BREAST 01/27/2010 BLANCHE POWER SHOVEL OPERATOR HELPER, BHARAT S 611.72 LUMP OR MASS IN BREAST 01/27/2010 611.72 LUMP OR MASS IN BREAST 01/27/2010 MAVERICK POWER SHOVEL OPERATOR HELPER, ZACHARIAH R 611.72 LUMP OR MASS IN [...] 05/13/2010 788.41 urinary frequency increased 05/13/2010 RAJOTTE POWER SHOVEL OPERATOR HELPER, FELIBERTO A 724.5 BACKACHE 05/13/2010 RAJOTTE POWER SHOVEL OPERATOR HELPER, FELIBERTO A 788.41 urinary frequency increased 05/13/2010 [...] AMELIA K 724.5 BACKACHE 05/13/2010 CURRIE DO, MAELIA K 788.41 URINARY FREQUENCY INCREASED 05/13/2010 CHARITY POWER SHOVEL OPERATOR HELPER, MARCI A 724.5 BACKACHE 05/13/2010 CHARITY POWER SHOVEL OPERATOR HELPER, MARCI A 788.41 URINARY FREQUENCY INCREASED 05/13/2010 MADL POWER SHOVEL OPERATOR HELPER, JHONATAN L 724.5 BACKACHE 05/13/2010 MADL POWER SHOVEL OPERATOR HELPER, JHONATAN L 788.41 URINARY FREQUENCY INCREASED 05/13/2010 724.5 BACKACHE 05/13/2010 788.41 URINARY FREQUENCY INCREASED 05/13/2010 CURRIE DO, AMELIA K 724.5 BACKACHE 05/13/2010 CURRIE DO, AMELIA K 788.41 URINARY FREQUENCY INCREASED 05/13/2010 CURRIE DO, AMELIA K 724.5 BACKACHE 05/13/2010 CURRIE DO, AMELIA K 788.41 URINARY FREQUENCY INCREASED 05/13/2010 MADL POWER SHOVEL OPERATOR HELPER, JHONATAN L 724.5 BACKACHE 05/13/2010 MADL POWER SHOVEL OPERATOR HELPER, JHONATAN L 788.41 URINARY FREQUENCY INCREASED 05/13/2010 MADL POWER SHOVEL OPERATOR HELPER, JHONATAN L 724.5 BACKACHE 05/13/2010 MADL POWER SHOVEL OPERATOR HELPER, JHONATAN L 788.41 URINARY FREQUENCY INCREASED 05/13/2010 MADL POWER SHOVEL OPERATOR HELPER, JHONATAN L 724.5 BACKACHE 05/13/2010 MADL POWER SHOVEL OPERATOR HELPER, JHONATAN L 788.41 URINARY FREQUENCY INCREASED 05/13/2010 CURRIE DO, AMELIA K 724.5 BACKACHE 05/13/2010 CURRIE DO, AMELIA K 788.41 URINARY FREQUENCY INCREASED 05/13/2010 MADL POWER SHOVEL OPERATOR HELPER, JHONATAN L 724.5 BACKACHE 05/13/2010 MADL POWER SHOVEL OPERATOR HELPER, JHONATAN L 788.41 URINARY FREQUENCY INCREASED 05/13/2010 MADL POWER SHOVEL OPERATOR HELPER, JHONATAN L 724.5 BACKACHE 05/13/2010 MADL POWER SHOVEL OPERATOR HELPER, JHONATAN L 788.41 URINARY FREQUENCY INCREASED 05/13/2010 MADL POWER SHOVEL OPERATOR HELPER, JHONATAN L 724.5 BACKACHE 05/13/2010 MADL POWER SHOVEL OPERATOR HELPER, JHONATAN L 788.41 URINARY FREQUENCY INCREASED 05/13/2010 CURRIE DO, AMELIA K 724.5 BACKACHE 05/13/2010 CURRIE DO, AMELIA K 788.41 URINARY FREQUENCY INCREASED 05/13/2010 MADL POWER SHOVEL OPERATOR HELPER, JHONATAN L 724.5 BACKACHE 05/13/2010 MADL POWER SHOVEL OPERATOR HELPER, JHONATAN L 788.41 URINARY FREQUENCY INCREASED 05/13/2010 MADL POWER SHOVEL OPERATOR HELPER, JHONATAN L 724.5 BACKACHE 05/13/2010 MADL POWER SHOVEL OPERATOR HELPER, JHONATAN L 788.41 URINARY FREQUENCY INCREASED 05/13/2010 MAVERICK POWER SHOVEL OPERATOR HELPER, ZACHARIAH R 724.5 BACKACHE 05/13/2010 MAVERICK POWER SHOVEL OPERATOR HELPER, ZACHARIAH R 788.41 URINARY FREQUENCY INCREASED 05/13/2010 MADL POWER SHOVEL OPERATOR HELPER, JHONATAN L 724.5 BACKACHE 05/13/2010 MADL POWER SHOVEL OPERATOR HELPER, JHONATAN L 788.41 URINARY FREQUENCY INCREASED 05/13/2010 MADL POWER SHOVEL OPERATOR HELPER, JHONATAN L 724.5 BACKACHE 05/13/2010 MADL POWER SHOVEL OPERATOR HELPER, JHONATAN L 788.41 URINARY FREQUENCY INCREASED 05/13/2010 MADL POWER SHOVEL OPERATOR HELPER, JHONATAN L 724.5 BACKACHE 05/13/2010 MADL POWER SHOVEL OPERATOR HELPER, JHONATAN L 788.41 URINARY FREQUENCY INCREASED 05/13/2010 MADL POWER SHOVEL OPERATOR HELPER, JHONATAN L 724.5 BACKACHE 05/13/2010 MADL POWER SHOVEL OPERATOR HELPER, JHONATAN L 788.41 URINARY FREQUENCY INCREASED 05/13/2010 MADL POWER SHOVEL OPERATOR HELPER, JHONATAN L 724.5 BACKACHE 05/13/2010 MADL POWER SHOVEL OPERATOR HELPER, JHONATAN L 788.41 URINARY FREQUENCY INCREASED 05/13/2010 MADL POWER SHOVEL OPERATOR HELPER, JHONATAN L 724.5 BACKACHE 05/13/2010 MADL POWER SHOVEL OPERATOR HELPER, JHONATAN L 788.41 URINARY FREQUENCY INCREASED 05/13/2010 CURRIE DO, AMELIA K 724.5 BACKACHE 05/13/2010 CURRIE DO, AMELIA K 788.41 URINARY FREQUENCY INCREASED 05/13/2010 MADL POWER SHOVEL OPERATOR HELPER, JHONATAN L 724.5 BACKACHE 05/13/2010 MADL POWER SHOVEL OPERATOR HELPER, JHONATAN L 788.41 URINARY FREQUENCY INCREASED 05/13/2010 BLANCHE POWER SHOVEL OPERATOR HELPER, BHARAT S 724.5 BACKACHE 05/13/2010 BLANCHE POWER SHOVEL OPERATOR HELPER, BHARAT S 788.41 URINARY FREQUENCY INCREASED 05/13/2010 724.5 BACKACHE 05/13/2010 788.41 URINARY FREQUENCY INCREASED 05/13/2010 MAVERICK POWER SHOVEL OPERATOR HELPER, ZACHARIAH R 724.5 BACKACHE 05/13/2010 MAVERICK POWER SHOVEL OPERATOR HELPER, ZACHARIAH R 788.41 URINARY FREQUENCY INCREASED 05/13/2010 [...] DO, AMELIA K 917.7 FOREIGN BODY-SUPERFICIAL 05/22/2010 CAHRITY POWER SHOVEL OPERATOR HELPER, MARCI A 558.9 GASTROENTERITIS NONINFECTIOUS 05/22/2010 CHARITY POWER SHOVEL OPERATOR HELPER, MARCI A 917.7 FOREIGN BODY-SUPERFICIAL 05/22/2010 MADL POWER SHOVEL OPERATOR HELPER, JHONATAN L 558.9 GASTROENTERITIS NONINFECTIOUS 05/22/2010 MADL POWER SHOVEL OPERATOR HELPER, JHONATAN L 917.7 FOREIGN BODY-SUPERFICIAL 05/22/2010 558.9 GASTROENTERITIS NONINFECTIOUS 05/22/2010 917.7 FOREIGN BODY- SUPERFICIAL 05/22/2010 CURRIE DO, AMELIA K 558.9 GASTROENTERITIS NONINFECTIOUS 05/22/2010 CURRIE DO, AMELIA K 917.7 FOREIGN BODY-SUPERFICIAL 05/22/2010 CURRIE DO, AMELIA K 558.9 GASTROENTERITIS NONINFECTIOUS 05/22/2010 CURRIE DO, AMELIA K 917.7 FOREIGN BODY-SUPERFICIAL 05/22/2010 MADL POWER SHOVEL OPERATOR HELPER, JHONATAN L 558.9 GASTROENTERITIS NONINFECTIOUS 05/22/2010 MADL POWER SHOVEL OPERATOR HELPER, JHONATAN L 917.7 FOREIGN BODY-SUPERFICIAL 05/22/2010 MADL POWER SHOVEL OPERATOR HELPER, JHONATAN L 558.9 GASTROENTERITIS NONINFECTIOUS 05/22/2010 MADL POWER SHOVEL OPERATOR HELPER, JHONATAN L 917.7 FOREIGN BODY-SUPERFICIAL 05/22/2010 MADL POWER SHOVEL OPERATOR HELPER, JHONATAN L 558.9 GASTROENTERITIS NONINFECTIOUS 05/22/2010 MADL POWER SHOVEL OPERATOR HELPER, JHONATAN L 917.7 FOREIGN BODY-SUPERFICIAL 05/22/2010 CURRIE DO, AMELIA K 558.9 GASTROENTERITIS NONINFECTIOUS 05/22/2010 CURRIE DO, AMELIA K 917.7 FOREIGN BODY-SUPERFICIAL 05/22/2010 MADL POWER SHOVEL OPERATOR HELPER, JHONATAN L 558.9 GASTROENTERITIS NONINFECTIOUS 05/22/2010 MADL POWER SHOVEL OPERATOR HELPER, JHONATAN L 917.7 FOREIGN BODY-SUPERFICIAL 05/22/2010 MADL POWER SHOVEL OPERATOR HELPER, JHONATAN L 558.9 GASTROENTERITIS NONINFECTIOUS 05/22/2010 MADL POWER SHOVEL OPERATOR HELPER, JHONATAN L 917.7 FOREIGN BODY-SUPERFICIAL 05/22/2010 MADL POWER SHOVEL OPERATOR HELPER, JHONATAN L 558.9 GASTROENTERITIS NONINFECTIOUS 05/22/2010 MADL POWER SHOVEL OPERATOR HELPER, JHOANTAN L 917.7 FOREIGN BODY-SUPERFICIAL 05/22/2010 CURRIE DO, AMELIA K 558.9 GASTROENTERITIS NONINFECTIOUS 05/22/2010 CURRIE DO, AMELIA K 917.7 FOREIGN BODY-SUPERFICIAL 05/22/2010 MADL POWER SHOVEL OPERATOR HELPER, JHONATAN L 558.9 GASTROENTERITIS NONINFECTIOUS 05/22/2010 MADL POWER SHOVEL OPERATOR HELPER, JHONATAN L 917.7 FOREIGN BODY-SUPERFICIAL 05/22/2010 MADL POWER SHOVEL OPERATOR HELPER, JHONATAN L 558.9 GASTROENTERITIS NONINFECTIOUS 05/22/2010 MADL POWER SHOVEL OPERATOR HELPER, JHONATAN L 917.7 FOREIGN BODY-SUPERFICIAL 05/22/2010 MAVERICK POWER SHOVEL OPERATOR HELPER, ZACHARIAH R 558.9 GASTROENTERITIS NONINFECTIOUS 05/22/2010 MAVERICK POWER SHOVEL OPERATOR HELPER, ZACHARIAH R 917.7 FOREIGN BODY-SUPERFICIAL 05/22/2010 MADL POWER SHOVEL OPERATOR HELPER, JHONATAN L 558.9 GASTROENTERITIS NONINFECTIOUS 05/22/2010 MADL POWER SHOVEL OPERATOR HELPER, JHONATAN L 917.7 FOREIGN BODY-SUPERFICIAL 05/22/2010 MADL POWER SHOVEL OPERATOR HELPER, JHONATAN L 558.9 GASTROENTERITIS NONINFECTIOUS 05/22/2010 MADL POWER SHOVEL OPERATOR HELPER, JHONATAN L 917.7 FOREIGN BODY-SUPERFICIAL 05/22/2010 MADL POWER SHOVEL OPERATOR HELPER, JHONATAN L 558.9 GASTROENTERITIS NONINFECTIOUS 05/22/2010 MADL POWER SHOVEL OPERATOR HELPER, JHONATAN L 917.7 FOREIGN BODY-SUPERFICIAL 05/22/2010 MADL POWER SHOVEL OPERATOR HELPER, JHONATAN L 558.9 GASTROENTERITIS NONINFECTIOUS 05/22/2010 MADL POWER SHOVEL OPERATOR HELPER, JHONATAN L 917.7 FOREIGN BODY-SUPERFICIAL 05/22/2010 MADL POWER SHOVEL OPERATOR HELPER, JHONATAN L 558.9 GASTROENTERITIS NONINFECTIOUS 05/22/2010 MADL POWER SHOVEL OPERATOR HELPER, JHONATAN L 917.7 FOREIGN BODY-SUPERFICIAL 05/22/2010 MADL POWER SHOVEL OPERATOR HELPER, JHONATAN L 558.9 GASTROENTERITIS NONINFECTIOUS 05/22/2010 MADL POWER SHOVEL OPERATOR HELPER, JHONATAN L 917.7 FOREIGN BODY-SUPERFICIAL 05/22/2010 CURRIE DO, AMELIA K 558.9 GASTROENTERITIS NONINFECTIOUS 05/22/2010 CURRIE DO, AMELIA K 917.7 FOREIGN BODY-SUPERFICIAL 05/22/2010 MADL POWER SHOVEL OPERATOR HELPER, JHONATAN L 558.9 GASTROENTERITIS NONINFECTIOUS 05/22/2010 MADL POWER SHOVEL OPERATOR HELPER, JHONATAN L 917.7 FOREIGN BODY-SUPERFICIAL 05/22/2010 BLANCHE POWER SHOVEL OPERATOR HELPER, BHARAT S 558.9 GASTROENTERITIS NONINFECTIOUS 05/22/2010 BLANCHE POWER SHOVEL OPERATOR HELPER, BHARAT S 917.7 FOREIGN BODY-SUPERFICIAL 05/22/2010 558.9 GASTROENTERITIS NONINFECTIOUS 05/22/2010 917.7 FOREIGN BODY- SUPERFICIAL 05/22/2010 MAVERICK POWER SHOVEL OPERATOR HELPER, ZACHARIAH R 558.9 GASTROENTERITIS NONINFECTIOUS 05/22/2010 MAVERICK POWER SHOVEL OPERATOR HELPER, ZACHARIAH R 917.7 FOREIGN BODY-SUPERFICIAL 05/22/2010 SUZY [...] DO, AMELIA K 787.91 DIARRHEA 05/25/2010 CHARITY POWER SHOVEL OPERATOR HELPER, MARCI A 787.91 DIARRHEA 05/25/2010 MADL POWER SHOVEL OPERATOR HELPER, JHONATAN L 787.91 DIARRHEA 05/25/2010 787.91 DIARRHEA 05/25/2010 CURRIE DO, AMELIA K 787.91 DIARRHEA 05/25/2010 CURRIE DO, AMELIA K 787.91 DIARRHEA 05/25/2010 MADL POWER SHOVEL OPERATOR HELPER, JHONATAN L 787.91 DIARRHEA 05/25/2010 MADL POWER SHOVEL OPERATOR HELPER, JHONATAN L 787.91 DIARRHEA 05/25/2010 MADL POWER SHOVEL OPERATOR HELPER, JHONATAN L 787.91 DIARRHEA 05/25/2010 CURRIE DO, AMELIA K 787.91 DIARRHEA 05/25/2010 MADL POWER SHOVEL OPERATOR HELPER, JHONATAN L 787.91 DIARRHEA 05/25/2010 MADL POWER SHOVEL OPERATOR HELPER, JHONATAN L 787.91 DIARRHEA 05/25/2010 MADL POWER SHOVEL OPERATOR HELPER, JHONATAN L 787.91 DIARRHEA 05/25/2010 CURRIE DO, AMELIA K 787.91 DIARRHEA 05/25/2010 MADL POWER SHOVEL OPERATOR HELPER, JHONATAN L 787.91 DIARRHEA 05/25/2010 MADL POWER SHOVEL OPERATOR HELPER, JHONATAN L 787.91 DIARRHEA 05/25/2010 MAVERICK POWER SHOVEL OPERATOR HELPER, ZACHARIAH R 787.91 DIARRHEA 05/25/2010 MADL POWER SHOVEL OPERATOR HELPER, JHONATAN L 787.91 DIARRHEA 05/25/2010 MADL POWER SHOVEL OPERATOR HELPER, JHONATAN L 787.91 DIARRHEA 05/25/2010 MADL POWER SHOVEL OPERATOR HELPER, JHONATAN L 787.91 DIARRHEA 05/25/2010 MADL POWER SHOVEL OPERATOR HELPER, JHONATAN L 787.91 DIARRHEA 05/25/2010 MADL POWER SHOVEL OPERATOR HELPER, JHONATAN L 787.91 DIARRHEA 05/25/2010 MADL POWER SHOVEL OPERATOR HELPER, JHONATAN L 787.91 DIARRHEA 05/25/2010 CURRIE DO, AMELIA K 787.91 DIARRHEA 05/25/2010 MADL POWER SHOVEL OPERATOR HELPER, JHONATAN L 787.91 DIARRHEA 05/25/2010 BLANCHE POWER SHOVEL OPERATOR HELPER, BHARAT S 787.91 DIARRHEA 05/25/2010 787.91 DIARRHEA 05/25/2010 MAVERICK POWER SHOVEL OPERATOR HELPER, ZACHARIAH R 787.91 DIARRHEA 05/25/2010 SUZY DDS, [...] ACUTE 06/09/2010 466.0 BRONCHITIS, ACUTE 06/09/2010 RAJOTTE POWER SHOVEL OPERATOR HELPER, FELIBERTO A 466.0 BRONCHITIS, ACUTE 06/09/2010 OK [...] MARCI A 466.0 BRONCHITIS, ACUTE 06/09/2010 MADL POWER SHOVEL OPERATOR HELPER, JHONATAN L 466.0 BRONCHITIS, ACUTE 06/09/2010 466.0 BRONCHITIS, ACUTE 06/09/2010 CURRIE DO, AMELIA K 466.0 BRONCHITIS, ACUTE 06/09/2010 CURRIE DO, AMELIA K 466.0 BRONCHITIS, ACUTE 06/09/2010 MADL POWER SHOVEL OPERATOR HELPER, JHONATAN L 466.0 BRONCHITIS, ACUTE 06/09/2010 MADL POWER SHOVEL OPERATOR HELPER, JHONATAN L 466.0 BRONCHITIS, ACUTE 06/09/2010 MADL POWER SHOVEL OPERATOR HELPER, JHONATAN L 466.0 BRONCHITIS, ACUTE 06/09/2010 CURRIE DO, AMELIA K 466.0 BRONCHITIS, ACUTE 06/09/2010 MADL POWER SHOVEL OPERATOR HELPER, JHONATAN L 466.0 BRONCHITIS, ACUTE 06/09/2010 MADL POWER SHOVEL OPERATOR HELPER, JHONATAN L 466.0 BRONCHITIS, ACUTE 06/09/2010 MADL POWER SHOVEL OPERATOR HELPER, JHONATAN L 466.0 BRONCHITIS, ACUTE 06/09/2010 CURRIE DO, AMELIA K 466.0 BRONCHITIS, ACUTE 06/09/2010 MADL POWER SHOVEL OPERATOR HELPER, JHONATAN L 466.0 BRONCHITIS, ACUTE 06/09/2010 MADL POWER SHOVEL OPERATOR HELPER, JHONATAN L 466.0 BRONCHITIS, ACUTE 06/09/2010 MAVERICK POWER SHOVEL OPERATOR HELPER, ZACHARIAH R 466.0 BRONCHITIS, ACUTE 06/09/2010 MADL POWER SHOVEL OPERATOR HELPER, JHONATAN L 466.0 BRONCHITIS, ACUTE 06/09/2010 MADL POWER SHOVEL OPERATOR HELPER, JHONATAN L 466.0 BRONCHITIS, ACUTE 06/09/2010 MADL POWER SHOVEL OPERATOR HELPER, JHONATAN L 466.0 BRONCHITIS, ACUTE 06/09/2010 MADL POWER SHOVEL OPERATOR HELPER, JHONATAN L 466.0 BRONCHITIS, ACUTE 06/09/2010 MADL POWER SHOVEL OPERATOR HELPER, JHONATAN L 466.0 BRONCHITIS, ACUTE 06/09/2010 MADL POWER SHOVEL OPERATOR HELPER, JHONATAN L 466.0 BRONCHITIS, ACUTE 06/09/2010 CURRIE DO, AMELIA K 466.0 BRONCHITIS, ACUTE 06/09/2010 MADL POWER SHOVEL OPERATOR HELPER, JHONATAN L 466.0 BRONCHITIS, ACUTE 06/09/2010 BLANCHE POWER SHOVEL OPERATOR HELPER, BHARAT S 466.0 BRONCHITIS, ACUTE 06/09/2010 466.0 BRONCHITIS, ACUTE 06/09/2010 MAVERICK POWER SHOVEL OPERATOR HELPER, ZACHARIAH R 466.0 BRONCHITIS, ACUTE 06/09/2010 ALMONTE [...] K 724.2 lower back pain 07/14/2010 CHARITY POWER SHOVEL OPERATOR HELPER, MARCI A 461.9 SINUSITIS ACUTE 07/14/2010 CHARITY POWER SHOVEL OPERATOR HELPER, MARCI A 599.0 URINARY TRACT INFECTION 07/14/2010 CHARITY POWER SHOVEL OPERATOR HELPER, MARCI A 625.6 STRESS INCONTINENCE FEMALE 07/14/2010 CHARITY POWER SHOVEL OPERATOR HELPER, MARCI A 724.2 lower back pain 07/14/2010 MADL POWER SHOVEL OPERATOR HELPER, JHONATAN L 461.9 SINUSITIS ACUTE 07/14/2010 MADL POWER SHOVEL OPERATOR HELPER, JHONATAN L 599.0 URINARY TRACT INFECTION 07/14/2010 MADL POWER SHOVEL OPERATOR HELPER, JHONATAN L 625.6 STRESS INCONTINENCE FEMALE 07/14/2010 MADL POWER SHOVEL OPERATOR HELPER, JHONATAN L 724.2 lower back pain 07/14/2010 [...] K 724.2 lower back pain 07/14/2010 MADL POWER SHOVEL OPERATOR HELPER, JHONATAN L 461.9 SINUSITIS ACUTE 07/14/2010 MADL POWER SHOVEL OPERATOR HELPER, JHONATAN L 599.0 URINARY TRACT INFECTION 07/14/2010 MADL POWER SHOVEL OPERATOR HELPER, JHONATAN L 625.6 STRESS INCONTINENCE FEMALE 07/14/2010 MADL POWER SHOVEL OPERATOR HELPER, JHONATAN L 724.2 lower back pain 07/14/2010 MADL POWER SHOVEL OPERATOR HELPER, JHONATAN L 461.9 SINUSITIS ACUTE 07/14/2010 MADL POWER SHOVEL OPERATOR HELPER, JHONATAN L 599.0 URINARY TRACT INFECTION 07/14/2010 MADL POWER SHOVEL OPERATOR HELPER, JHONATAN L 625.6 STRESS INCONTINENCE FEMALE 07/14/2010 MADL POWER SHOVEL OPERATOR HELPER, JHONATAN L 724.2 lower back pain 07/14/2010 MADL POWER SHOVEL OPERATOR HELPER, JHONATAN L 461.9 SINUSITIS ACUTE 07/14/2010 MADL POWER SHOVEL OPERATOR HELPER, JHONATAN L 599.0 URINARY TRACT INFECTION 07/14/2010 MADL POWER SHOVEL OPERATOR HELPER, JHONATAN L 625.6 STRESS INCONTINENCE FEMALE 07/14/2010 MADL POWER SHOVEL OPERATOR HELPER, JHONATAN L 724.2 lower back pain 07/14/2010 CURRIE DO, AMELIA K 461.9 SINUSITIS ACUTE 07/14/2010 CURRIE DO, AMELIA K 599.0 URINARY TRACT INFECTION 07/14/2010 CURRIE DO, AMELIA K 625.6 STRESS INCONTINENCE FEMALE 07/14/2010 CURRIE DO, AMELIA K 724.2 lower back pain 07/14/2010 MADL POWER SHOVEL OPERATOR HELPER, JHONATAN L 461.9 SINUSITIS ACUTE 07/14/2010 MADL POWER SHOVEL OPERATOR HELPER, JHONATAN L 599.0 URINARY TRACT INFECTION 07/14/2010 MADL POWER SHOVEL OPERATOR HELPER, JHONATAN L 625.6 STRESS INCONTINENCE FEMALE 07/14/2010 MADL POWER SHOVEL OPERATOR HELPER, JHONATAN L 724.2 lower back pain 07/14/2010 MADL POWER SHOVEL OPERATOR HELPER, JHONATAN L 461.9 SINUSITIS ACUTE 07/14/2010 MADL POWER SHOVEL OPERATOR HELPER, JHONATAN L 599.0 URINARY TRACT INFECTION 07/14/2010 MADL POWER SHOVEL OPERATOR HELPER, JHONATAN L 625.6 STRESS INCONTINENCE FEMALE 07/14/2010 MADL POWER SHOVEL OPERATOR HELPER, JHONATAN L 724.2 lower back pain 07/14/2010 MADL POWER SHOVEL OPERATOR HELPER, JHONATAN L 461.9 SINUSITIS ACUTE 07/14/2010 MADL POWER SHOVEL OPERATOR HELPER, JHONATAN L 599.0 URINARY TRACT INFECTION 07/14/2010 MADL POWER SHOVEL OPERATOR HELPER, JHONATAN L 625.6 STRESS INCONTINENCE FEMALE 07/14/2010 MADL POWER SHOVEL OPERATOR HELPER, JHONATAN L 724.2 lower back pain 07/14/2010 CURRIE DO, AMELIA K 461.9 SINUSITIS ACUTE 07/14/2010 CURRIE DO, AMELIA K 599.0 URINARY TRACT INFECTION 07/14/2010 CURRIE DO, AMELIA K 625.6 STRESS INCONTINENCE FEMALE 07/14/2010 CURRIE DO, AMELIA K 724.2 lower back pain 07/14/2010 MADL POWER SHOVEL OPERATOR HELPER, JHONATAN L 461.9 SINUSITIS ACUTE 07/14/2010 MADL POWER SHOVEL OPERATOR HELPER, JHONATAN L 599.0 URINARY TRACT INFECTION 07/14/2010 MADL POWER SHOVEL OPERATOR HELPER, JHONATAN L 625.6 STRESS INCONTINENCE FEMALE 07/14/2010 MADL POWER SHOVEL OPERATOR HELPER, JHONATAN L 724.2 lower back pain 07/14/2010 MADL POWER SHOVEL OPERATOR HELPER, JHONATAN L 461.9 SINUSITIS ACUTE 07/14/2010 MADL POWER SHOVEL OPERATOR HELPER, JHONATAN L 599.0 URINARY TRACT INFECTION 07/14/2010 MADL POWER SHOVEL OPERATOR HELPER, JHONATAN L 625.6 STRESS INCONTINENCE FEMALE 07/14/2010 MADL POWER SHOVEL OPERATOR HELPER, JHONATAN L 724.2 lower back pain 07/14/2010 MAVERICK POWER SHOVEL OPERATOR HELPER, ZACHARIAH R 461.9 SINUSITIS ACUTE 07/14/2010 MAVERICK POWER SHOVEL OPERATOR HELPER, ZACHARIAH R 599.0 URINARY TRACT INFECTION 07/14/2010 MAVERICK POWER SHOVEL OPERATOR HELPER, ZACHARIAH R 625.6 STRESS INCONTINENCE FEMALE 07/14/2010 MAVERICK POWER SHOVEL OPERATOR HELPER, ZACHARIAH R 724.2 lower back pain 07/14/2010 MADL POWER SHOVEL OPERATOR HELPER, JHONATAN L 461.9 SINUSITIS ACUTE 07/14/2010 MADL POWER SHOVEL OPERATOR HELPER, JHONATAN L 599.0 URINARY TRACT INFECTION 07/14/2010 MADL POWER SHOVEL OPERATOR HELPER, JHONATAN L 625.6 STRESS INCONTINENCE FEMALE 07/14/2010 MADL POWER SHOVEL OPERATOR HELPER, JHONTAAN L 724.2 lower back pain 07/14/2010 MADL POWER SHOVEL OPERATOR HELPER, JHONATAN L 461.9 SINUSITIS ACUTE 07/14/2010 MADL POWER SHOVEL OPERATOR HELPER, JHONATAN L 599.0 URINARY TRACT INFECTION 07/14/2010 MADL POWER SHOVEL OPERATOR HELPER, JHONATAN L 625.6 STRESS INCONTINENCE FEMALE 07/14/2010 MADL POWER SHOVEL OPERATOR HELPER, JHONATAN L 724.2 lower back pain 07/14/2010 MADL POWER SHOVEL OPERATOR HELPER, JHONATAN L 461.9 SINUSITIS ACUTE 07/14/2010 MADL POWER SHOVEL OPERATOR HELPER, JHONATAN L 599.0 URINARY TRACT INFECTION 07/14/2010 MADL POWER SHOVEL OPERATOR HELPER, JHONATAN L 625.6 STRESS INCONTINENCE FEMALE 07/14/2010 MADL POWER SHOVEL OPERATOR HELPER, JHONATAN L 724.2 lower back pain 07/14/2010 MADL POWER SHOVEL OPERATOR HELPER, JHONATAN L 461.9 SINUSITIS ACUTE 07/14/2010 MADL POWER SHOVEL OPERATOR HELPER, JHONATAN L 599.0 URINARY TRACT INFECTION 07/14/2010 MADL POWER SHOVEL OPERATOR HELPER, JHONATAN L 625.6 STRESS INCONTINENCE FEMALE 07/14/2010 MADL POWER SHOVEL OPERATOR HELPER, JHONATAN L 724.2 lower back pain 07/14/2010 MADL POWER SHOVEL OPERATOR HELPER, JHONATAN L 461.9 SINUSITIS ACUTE 07/14/2010 MADL POWER SHOVEL OPERATOR HELPER, JHONATAN L 599.0 URINARY TRACT INFECTION 07/14/2010 MADL POWER SHOVEL OPERATOR HELPER, JHONATAN L 625.6 STRESS INCONTINENCE FEMALE 07/14/2010 MADL POWER SHOVEL OPERATOR HELPER, JHONATAN L 724.2 lower back pain 07/14/2010 MADL POWER SHOVEL OPERATOR HELPER, JHONATAN L 461.9 SINUSITIS ACUTE 07/14/2010 MADL POWER SHOVEL OPERATOR HELPER, JHONATAN L 599.0 URINARY TRACT INFECTION 07/14/2010 MADL POWER SHOVEL OPERATOR HELPER, JHONATAN L 625.6 STRESS INCONTINENCE FEMALE 07/14/2010 MADL POWER SHOVEL OPERATOR HELPER, JHONATAN L 724.2 lower back pain 07/14/2010 CURRIE DO, AMELIA K 461.9 SINUSITIS ACUTE 07/14/2010 CURRIE DO, AMELIA K 599.0 URINARY TRACT INFECTION 07/14/2010 CURRIE DO, AMELIA K 625.6 STRESS INCONTINENCE FEMALE 07/14/2010 CURRIE DO, AMELIA K 724.2 lower back pain 07/14/2010 MADL POWER SHOVEL OPERATOR HELPER, JHONATAN L 461.9 SINUSITIS ACUTE 07/14/2010 MADL POWER SHOVEL OPERATOR HELPER, JHONATAN L 599.0 URINARY TRACT INFECTION 07/14/2010 MADL POWER SHOVEL OPERATOR HELPER, JHONATAN L 625.6 STRESS INCONTINENCE FEMALE 07/14/2010 MADL POWER SHOVEL OPERATOR HELPER, JHONATAN L 724.2 lower back pain 07/14/2010 BLANCHE POWER SHOVEL OPERATOR HELPER, BHARAT S 461.9 SINUSITIS ACUTE 07/14/2010 BLANCHE POWER SHOVEL OPERATOR HELPER, BHARAT S 599.0 URINARY TRACT INFECTION 07/14/2010 BLANCHE POWER SHOVEL OPERATOR HELPER, BHARAT S 625.6 STRESS INCONTINENCE FEMALE 07/14/2010 BLANCHE POWER SHOVEL OPERATOR HELPER, BHARAT S 724.2 lower back pain 07/14/2010 461.9 SINUSITIS ACUTE 07/14/2010 599.0 URINARY TRACT INFECTION 07/14/2010 625.6 STRESS INCONTINENCE FEMALE 07/14/2010 724.2 lower back pain 07/14/2010 MAVERICK POWER SHOVEL OPERATOR HELPER, ZACHARIAH R 461.9 SINUSITIS ACUTE 07/14/2010 MAVERICK POWER SHOVEL OPERATOR HELPER, ZACHARIAH R 599.0 URINARY TRACT INFECTION 07/14/2010 MAVERICK POWER SHOVEL OPERATOR HELPER, ZACHARIAH R 625.6 STRESS INCONTINENCE FEMALE 07/14/2010 MAVERICK POWER SHOVEL OPERATOR HELPER, ZACHARIAH R 724.2 lower back pain 07/14/2010 [...] 272.4 OTHER AND UNSPECIFIED HYPERLIPIDEMIA 07/23/2010 CHARITY POWER SHOVEL OPERATOR HELPER, MARCI A 272.4 OTHER AND UNSPECIFIED HYPERLIPIDEMIA 07/23/2010 MADL POWER SHOVEL OPERATOR HELPER, JHONATAN L 272.4 OTHER AND UNSPECIFIED HYPERLIPIDEMIA 07/23/2010 272.4 OTHER AND UNSPECIFIED HYPERLIPIDEMIA 07/23/2010 CURRIE DO, AMELIA K 272.4 OTHER AND UNSPECIFIED HYPERLIPIDEMIA 07/23/2010 CURRIE DO, AMELIA K 272.4 OTHER AND UNSPECIFIED HYPERLIPIDEMIA 07/23/2010 MADL POWER SHOVEL OPERATOR HELPER, JHONATAN L 272.4 OTHER AND UNSPECIFIED HYPERLIPIDEMIA 07/23/2010 MADL POWER SHOVEL OPERATOR HELPER, JHONATAN L 272.4 OTHER AND UNSPECIFIED HYPERLIPIDEMIA 07/23/2010 MADL POWER SHOVEL OPERATOR HELPER, JHONATAN L 272.4 OTHER AND UNSPECIFIED HYPERLIPIDEMIA 07/23/2010 CURRIE DO, AMELIA K 272.4 OTHER AND UNSPECIFIED HYPERLIPIDEMIA 07/23/2010 MADL POWER SHOVEL OPERATOR HELPER, JHONATAN L 272.4 OTHER AND UNSPECIFIED HYPERLIPIDEMIA 07/23/2010 MADL POWER SHOVEL OPERATOR HELPER, JHONATAN L 272.4 OTHER AND UNSPECIFIED HYPERLIPIDEMIA 07/23/2010 MADL POWER SHOVEL OPERATOR HELPER, JHONATAN L 272.4 OTHER AND UNSPECIFIED HYPERLIPIDEMIA 07/23/2010 CURRIE DO, AMELIA K 272.4 OTHER AND UNSPECIFIED HYPERLIPIDEMIA 07/23/2010 MADL POWER SHOVEL OPERATOR HELPER, JHONATAN L 272.4 OTHER AND UNSPECIFIED HYPERLIPIDEMIA 07/23/2010 MADL POWER SHOVEL OPERATOR HELPER, JHONATAN L 272.4 OTHER AND UNSPECIFIED HYPERLIPIDEMIA 07/23/2010 MAVERICK POWER SHOVEL OPERATOR HELPER, ZACHARIAH R 272.4 OTHER AND UNSPECIFIED HYPERLIPIDEMIA 07/23/2010 MADL POWER SHOVEL OPERATOR HELPER, JHONATAN L 272.4 OTHER AND UNSPECIFIED HYPERLIPIDEMIA 07/23/2010 MADL POWER SHOVEL OPERATOR HELPER, JHONATAN L 272.4 OTHER AND UNSPECIFIED HYPERLIPIDEMIA 07/23/2010 MADL POWER SHOVEL OPERATOR HELPER, JHONATAN L 272.4 OTHER AND UNSPECIFIED HYPERLIPIDEMIA 07/23/2010 MADL POWER SHOVEL OPERATOR HELPER, JHONATAN L 272.4 OTHER AND UNSPECIFIED HYPERLIPIDEMIA 07/23/2010 MADL POWER SHOVEL OPERATOR HELPER, JHONATAN L 272.4 OTHER AND UNSPECIFIED HYPERLIPIDEMIA 07/23/2010 MADL POWER SHOVEL OPERATOR HELPER, JHONATAN L 272.4 OTHER AND UNSPECIFIED HYPERLIPIDEMIA 07/23/2010 CURRIE DO, AMELIA K 272.4 OTHER AND UNSPECIFIED HYPERLIPIDEMIA 07/23/2010 MADL POWER SHOVEL OPERATOR HELPER, JHONATAN L 272.4 OTHER AND UNSPECIFIED HYPERLIPIDEMIA 07/23/2010 BLANCHE POWER SHOVEL OPERATOR HELPER, BHARAT S 272.4 OTHER AND UNSPECIFIED HYPERLIPIDEMIA 07/23/2010 272.4 OTHER AND UNSPECIFIED HYPERLIPIDEMIA 07/23/2010 MAVERICK POWER SHOVEL OPERATOR HELPER, ZACHARIAH R 272.4 OTHER AND UNSPECIFIED HYPERLIPIDEMIA [...] K 847.0 SPRAIN OF NECK 09/25/2010 CHARITY POWER SHOVEL OPERATOR HELPER, MARCI A 465.9 UPPER RESPIRATORY INFECTION 09/25/2010 CHARITY POWER SHOVEL OPERATOR HELPER, MARCI A 847.0 SPRAIN OF NECK 09/25/2010 MADL POWER SHOVEL OPERATOR HELPER, JHONATAN L 465.9 UPPER RESPIRATORY INFECTION 09/25/2010 MADL POWER SHOVEL OPERATOR HELPER, JHONATAN L 847.0 SPRAIN OF NECK 09/25/2010 465.9 UPPER RESPIRATORY INFECTION 09/25/2010 847.0 SPRAIN OF NECK 09/25/2010 CURRIE DO, AMELIA K 465.9 UPPER RESPIRATORY INFECTION 09/25/2010 CURRIE DO, AMELIA K 847.0 SPRAIN OF NECK 09/25/2010 CURRIE DO, AMELIA K 465.9 UPPER RESPIRATORY INFECTION 09/25/2010 CURRIE DO, AMELIA K 847.0 SPRAIN OF NECK 09/25/2010 MADL POWER SHOVEL OPERATOR HELPER, JHONATAN L 465.9 UPPER RESPIRATORY INFECTION 09/25/2010 MADL POWER SHOVEL OPERATOR HELPER, JHONATAN L 847.0 SPRAIN OF NECK 09/25/2010 MADL POWER SHOVEL OPERATOR HELPER, JHONATAN L 465.9 UPPER RESPIRATORY INFECTION 09/25/2010 MADL POWER SHOVEL OPERATOR HELPER, JHONATAN L 847.0 SPRAIN OF NECK 09/25/2010 MADL POWER SHOVEL OPERATOR HELPER, JHONATAN L 465.9 UPPER RESPIRATORY INFECTION 09/25/2010 MADL POWER SHOVEL OPERATOR HELPER, JHONATAN L 847.0 SPRAIN OF NECK 09/25/2010 CURRIE DO, AMELIA K 465.9 UPPER RESPIRATORY INFECTION 09/25/2010 CURRIE DO, AMELIA K 847.0 SPRAIN OF NECK 09/25/2010 MADL POWER SHOVEL OPERATOR HELPER, JHONATAN L 465.9 UPPER RESPIRATORY INFECTION 09/25/2010 MADL POWER SHOVEL OPERATOR HELPER, JHONATAN L 847.0 SPRAIN OF NECK 09/25/2010 MADL POWER SHOVEL OPERATOR HELPER, JHONATAN L 465.9 UPPER RESPIRATORY INFECTION 09/25/2010 MADL POWER SHOVEL OPERATOR HELPER, JHONATAN L 847.0 SPRAIN OF NECK 09/25/2010 MADL POWER SHOVEL OPERATOR HELPER, JHONATAN L 465.9 UPPER RESPIRATORY INFECTION 09/25/2010 MADL POWER SHOVEL OPERATOR HELPER, JHONATAN L 847.0 SPRAIN OF NECK 09/25/2010 CURRIE DO, AMELIA K 465.9 UPPER RESPIRATORY INFECTION 09/25/2010 CURRIE DO, AMELIA K 847.0 SPRAIN OF NECK 09/25/2010 MADL POWER SHOVEL OPERATOR HELPER, JHONATAN L 465.9 UPPER RESPIRATORY INFECTION 09/25/2010 MADL POWER SHOVEL OPERATOR HELPER, JHONATAN L 847.0 SPRAIN OF NECK 09/25/2010 MADL POWER SHOVEL OPERATOR HELPER, JHONATAN L 465.9 UPPER RESPIRATORY INFECTION 09/25/2010 MADL POWER SHOVEL OPERATOR HELPER, JHONATAN L 847.0 SPRAIN OF NECK 09/25/2010 MAVERICK POWER SHOVEL OPERATOR HELPER, ZACHARIAH R 465.9 UPPER RESPIRATORY INFECTION 09/25/2010 MAVERICK POWER SHOVEL OPERATOR HELPER, ZACHARIAH R 847.0 SPRAIN OF NECK 09/25/2010 MADL POWER SHOVEL OPERATOR HELPER, JHONATAN L 465.9 UPPER RESPIRATORY INFECTION 09/25/2010 MADL POWER SHOVEL OPERATOR HELPER, JHONATAN L 847.0 SPRAIN OF NECK 09/25/2010 MADL POWER SHOVEL OPERATOR HELPER, JHONATAN L 465.9 UPPER RESPIRATORY INFECTION 09/25/2010 MADL POWER SHOVEL OPERATOR HELPER, JHONATAN L 847.0 SPRAIN OF NECK 09/25/2010 MADL POWER SHOVEL OPERATOR HELPER, JHONATAN L 465.9 UPPER RESPIRATORY INFECTION 09/25/2010 MADL POWER SHOVEL OPERATOR HELPER, JHONATAN L 847.0 SPRAIN OF NECK 09/25/2010 MADL POWER SHOVEL OPERATOR HELPER, JHONATAN L 465.9 UPPER RESPIRATORY INFECTION 09/25/2010 MADL POWER SHOVEL OPERATOR HELPER, JHONATAN L 847.0 SPRAIN OF NECK 09/25/2010 MADL POWER SHOVEL OPERATOR HELPER, JHONATAN L 465.9 UPPER RESPIRATORY INFECTION 09/25/2010 MADL POWER SHOVEL OPERATOR HELPER, JHONATAN L 847.0 SPRAIN OF NECK 09/25/2010 MADL POWER SHOVEL OPERATOR HELPER, JHONATAN L 465.9 UPPER RESPIRATORY INFECTION 09/25/2010 MADL POWER SHOVEL OPERATOR HELPER, JHONATAN L 847.0 SPRAIN OF NECK 09/25/2010 CURRIE DO, AMELIA K 465.9 UPPER RESPIRATORY INFECTION 09/25/2010 CURRIE DO, AMELIA K 847.0 SPRAIN OF NECK 09/25/2010 MADL POWER SHOVEL OPERATOR HELPER, JHONATAN L 465.9 UPPER RESPIRATORY INFECTION 09/25/2010 MADL POWER SHOVEL OPERATOR HELPER, JHONATAN L 847.0 SPRAIN OF NECK 09/25/2010 BLANCHE POWER SHOVEL OPERATOR HELPER, BHARAT S 465.9 UPPER RESPIRATORY INFECTION 09/25/2010 BLANCHE POWER SHOVEL OPERATOR HELPER, BHARAT S 847.0 SPRAIN OF NECK 09/25/2010 465.9 UPPER RESPIRATORY INFECTION 09/25/2010 847.0 SPRAIN OF NECK 09/25/2010 MAVERICK POWER SHOVEL OPERATOR HELPER, ZACHARIAH R 465.9 UPPER RESPIRATORY INFECTION 09/25/2010 MAVERIKC POWER SHOVEL OPERATOR HELPER, ZACHARIAH R 847.0 SPRAIN OF NECK 09/25/2010 [...] MASS OR LUMP IN CHEST 11/04/2010 CHARITY POWER SHOVEL OPERATOR HELPER, MARCI A 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 11/04/2010 CHARITY POWER SHOVEL OPERATOR HELPER, MARCI A 473.9 UNSPECIFIED SINUSITIS (CHRONIC) 11/04/2010 CHARITY POWER SHOVEL OPERATOR HELPER, MARCI A 786.6 SWELLING MASS OR LUMP IN CHEST 11/04/2010 MADL POWER SHOVEL OPERATOR HELPER, JHONATAN L 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 11/04/2010 MADL POWER SHOVEL OPERATOR HELPER, JHONATAN L 473.9 UNSPECIFIED SINUSITIS (CHRONIC) 11/04/2010 MADL POWER SHOVEL OPERATOR HELPER, JHONATAN L 786.6 SWELLING MASS OR LUMP IN CHEST 11/04/2010 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 11/04/2010 473.9 UNSPECIFIED SINUSITIS (CHRONIC) 11/04/2010 786.6 SWELLING MASS OR LUMP IN CHEST 11/04/2010 CURRIE DO, AMELIA K 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 11/04/2010 CURRIE DO, AMELIA K 473.9 UNSPECIFIED SINUSITIS (CHRONIC) 11/04/2010 CURRIE DO, MAELIA K 786.6 SWELLING MASS OR LUMP IN CHEST 11/04/2010 CURRIE DO, AMELIA K 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 11/04/2010 CURRIE DO, AMELIA K 473.9 UNSPECIFIED SINUSITIS (CHRONIC) 11/04/2010 CURRIE DO, AMELIA K 786.6 SWELLING MASS OR LUMP IN CHEST 11/04/2010 MADL POWER SHOVEL OPERATOR HELPER, JHONATAN L 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 11/04/2010 MADL POWER SHOVEL OPERATOR HELPER, JHONATAN L 473.9 UNSPECIFIED SINUSITIS (CHRONIC) 11/04/2010 MADL POWER SHOVEL OPERATOR HELPER, JHONATAN L 786.6 SWELLING MASS OR LUMP IN CHEST 11/04/2010 MADL POWER SHOVEL OPERATOR HELPER, JHONATAN L 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 11/04/2010 MADL POWER SHOVEL OPERATOR HELPER, JHONATAN L 473.9 UNSPECIFIED SINUSITIS (CHRONIC) 11/04/2010 MADL POWER SHOVEL OPERATOR HELPER, JHONATAN L 786.6 SWELLING MASS OR LUMP IN CHEST 11/04/2010 MADL POWER SHOVEL OPERATOR HELPER, JHONATAN L 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 11/04/2010 MADL POWER SHOVEL OPERATOR HELPER, JHONATAN L 473.9 UNSPECIFIED SINUSITIS (CHRONIC) 11/04/2010 MADL POWER SHOVEL OPERATOR HELPER, JHONATAN L 786.6 SWELLING MASS OR LUMP IN CHEST 11/04/2010 CURRIE DO AMELIA K 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 11/04/2010 CURRIE DO AMELIA K 473.9 UNSPECIFIED SINUSITIS (CHRONIC) 11/04/2010 CURRIE DO, AMELIA K 786.6 SWELLING MASS OR LUMP IN CHEST 11/04/2010 MADL POWER SHOVEL OPERATOR HELPER, JHONATAN L 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 11/04/2010 MADL POWER SHOVEL OPERATOR HELPER, JHONATAN L 473.9 UNSPECIFIED SINUSITIS (CHRONIC) 11/04/2010 MADL POWER SHOVEL OPERATOR HELPER, JHONATAN L 786.6 SWELLING MASS OR LUMP IN CHEST 11/04/2010 MADL POWER SHOVEL OPERATOR HELPER, JHONATAN L 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 11/04/2010 MADL POWER SHOVEL OPERATOR HELPER, JHONATAN L 473.9 UNSPECIFIED SINUSITIS (CHRONIC) 11/04/2010 MADL POWER SHOVEL OPERATOR HELPER, JHONATAN L 786.6 SWELLING MASS OR LUMP IN CHEST 11/04/2010 MADL POWER SHOVEL OPERATOR HELPER, JHONATAN L 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 11/04/2010 MADL POWER SHOVEL OPERATOR HELPER, JHONATAN L 473.9 UNSPECIFIED SINUSITIS (CHRONIC) 11/04/2010 MADL POWER SHOVEL OPERATOR HELPER, JHONATAN L 786.6 SWELLING MASS OR LUMP IN CHEST 11/04/2010 CURRIE DO AMELIA K 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 11/04/2010 CURRIE DO, AMELIA K 473.9 UNSPECIFIED SINUSITIS (CHRONIC) 11/04/2010 CURRIE DO, AMELIA K 786.6 SWELLING MASS OR LUMP IN CHEST 11/04/2010 MADL POWER SHOVEL OPERATOR HELPER, JHONATAN L 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 11/04/2010 MADL POWER SHOVEL OPERATOR HELPER, JHONATAN L 473.9 UNSPECIFIED SINUSITIS (CHRONIC) 11/04/2010 MADL POWER SHOVEL OPERATOR HELPER, JHONATAN L 786.6 SWELLING MASS OR LUMP IN CHEST 11/04/2010 MADL POWER SHOVEL OPERATOR HELPER, JHONATAN L 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 11/04/2010 MADL POWER SHOVEL OPERATOR HELPER, JHONATAN L 473.9 UNSPECIFIED SINUSITIS (CHRONIC) 11/04/2010 MADL POWER SHOVEL OPERATOR HELPER, JHONATAN L 786.6 SWELLING MASS OR LUMP IN CHEST 11/04/2010 MAVERICK POWER SHOVEL OPERATOR HELPER, ZACHARIAH R 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 11/04/2010 MAVERICK POWER SHOVEL OPERATOR HELPER, ZACHARIAH R 473.9 UNSPECIFIED SINUSITIS (CHRONIC) 11/04/2010 MAVERICK POWER SHOVEL OPERATOR HELPER, ZACHARIAH R 786.6 SWELLING MASS OR LUMP IN CHEST 11/04/2010 MADL POWER SHOVEL OPERATOR HELPER, JHONATAN L 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 11/04/2010 MADL POWER SHOVEL OPERATOR HELPER, JHONATAN L 473.9 UNSPECIFIED SINUSITIS (CHRONIC) 11/04/2010 MADL POWER SHOVEL OPERATOR HELPER, JHONATAN L 786.6 SWELLING MASS OR LUMP IN CHEST 11/04/2010 MADL POWER SHOVEL OPERATOR HELPER, JHONATAN L 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 11/04/2010 MADL POWER SHOVEL OPERATOR HELPER, JHONATAN L 473.9 UNSPECIFIED SINUSITIS (CHRONIC) 11/04/2010 MADL POWER SHOVEL OPERATOR HELPER, JHONATAN L 786.6 SWELLING MASS OR LUMP IN CHEST 11/04/2010 MADL POWER SHOVEL OPERATOR HELPER, JHONATAN L 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 11/04/2010 MADL POWER SHOVEL OPERATOR HELPER, JHONATAN L 473.9 UNSPECIFIED SINUSITIS (CHRONIC) 11/04/2010 MADL POWER SHOVEL OPERATOR HELPER, JHONATAN L 786.6 SWELLING MASS OR LUMP IN CHEST 11/04/2010 MADL POWER SHOVEL OPERATOR HELPER, JHONATAN L 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 11/04/2010 MADL POWER SHOVEL OPERATOR HELPER, JHONATAN L 473.9 UNSPECIFIED SINUSITIS (CHRONIC) 11/04/2010 MADL POWER SHOVEL OPERATOR HELPER, JHONATAN L 786.6 SWELLING MASS OR LUMP IN CHEST 11/04/2010 MADL POWER SHOVEL OPERATOR HELPER, JHONATAN L 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 11/04/2010 MADL POWER SHOVEL OPERATOR HELPER, JHONATAN L 473.9 UNSPECIFIED SINUSITIS (CHRONIC) 11/04/2010 MADL POWER SHOVEL OPERATOR HELPER, JHONATAN L 786.6 SWELLING MASS OR LUMP IN CHEST 11/04/2010 MADL POWER SHOVEL OPERATOR HELPER, JHONATAN L 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 11/04/2010 MADL POWER SHOVEL OPERATOR HELPER, JHONATAN L 473.9 UNSPECIFIED SINUSITIS (CHRONIC) 11/04/2010 MADL POWER SHOVEL OPERATOR HELPER, JHONATAN L 786.6 SWELLING MASS OR LUMP IN CHEST 11/04/2010 CURRIE DO, MAELIA K 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 11/04/2010 CURRIE DO, AMELIA K 473.9 UNSPECIFIED SINUSITIS (CHRONIC) 11/04/2010 CURRIE DO, AMELIA K 786.6 SWELLING MASS OR LUMP IN CHEST 11/04/2010 MADL POWER SHOVEL OPERATOR HELPER, JHONATAN L 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 11/04/2010 MADL POWER SHOVEL OPERATOR HELPER, JHONATAN L 473.9 UNSPECIFIED SINUSITIS (CHRONIC) 11/04/2010 MADL POWER SHOVEL OPERATOR HELPER, JHONATAN L 786.6 SWELLING MASS OR LUMP IN CHEST 11/04/2010 BLANCHE POWER SHOVEL OPERATOR HELPER, BHARAT S 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 11/04/2010 BLANCHE POWER SHOVEL OPERATOR HELPER, BHARAT S 473.9 UNSPECIFIED SINUSITIS (CHRONIC) 11/04/2010 BLANCHE POWER SHOVEL OPERATOR HELPER, BHARAT S 786.6 SWELLING MASS OR LUMP IN CHEST 11/04/2010 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 11/04/2010 473.9 UNSPECIFIED SINUSITIS (CHRONIC) 11/04/2010 786.6 SWELLING MASS OR LUMP IN CHEST 11/04/2010 MAVERICK POWER SHOVEL OPERATOR HELPER, ZACHARIAH R 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 11/04/2010 MAVERICK POWER SHOVEL OPERATOR HELPER, ZACHARIAH R 473.9 UNSPECIFIED SINUSITIS (CHRONIC) 11/04/2010 [...] 278.01 OBESITY MORBID BMI >40 12/22/2010 CHARITY POWER SHOVEL OPERATOR HELPER, MARCI A 278.01 OBESITY MORBID BMI >40 12/22/2010 MADL POWER SHOVEL OPERATOR HELPER, JHONATAN L 278.01 OBESITY MORBID BMI >40 12/22/2010 278.01 OBESITY MORBID BMI >40 12/22/2010 CURRIE DO, AMELIA K 278.01 OBESITY MORBID BMI >40 12/22/2010 CURRIE DO, AMELIA K 278.01 OBESITY MORBID BMI >40 12/22/2010 MADL POWER SHOVEL OPERATOR HELPER, JHONATAN L 278.01 OBESITY MORBID BMI >40 12/22/2010 MADL POWER SHOVEL OPERATOR HELPER, JHONATAN L 278.01 OBESITY MORBID BMI >40 12/22/2010 MAD POWER SHOVEL OPERATOR HELPER, JHONATAN L 278.01 OBESITY MORBID BMI >40 12/22/2010 CURRIE DO, AMELIA K 278.01 OBESITY MORBID BMI >40 12/22/2010 MAD POWER SHOVEL OPERATOR HELPER, JHONATAN L 278.01 OBESITY MORBID BMI >40 12/22/2010 MAD POWER SHOVEL OPERATOR HELPER, JHONATAN L 278.01 OBESITY MORBID BMI >40 12/22/2010 MAD POWER SHOVEL OPERATOR HELPER, JHONATAN L 278.01 OBESITY MORBID BMI >40 12/22/2010 CURRIE DO, AMELIA K 278.01 OBESITY MORBID BMI >40 12/22/2010 MAD POWER SHOVEL OPERATOR HELPER, JHONATAN L 278.01 OBESITY MORBID BMI >40 12/22/2010 MAD POWER SHOVEL OPERATOR HELPER, JHONATAN L 278.01 OBESITY MORBID BMI >40 12/22/2010 JOSSELINE TEMPLE APRNINA R 278.01 OBESITY MORBID BMI >40 12/22/2010 MAD POWER SHOVEL OPERATOR HELPER, JHONATAN L 278.01 OBESITY MORBID BMI >40 12/22/2010 MAD POWER SHOVEL OPERATOR HELPER, JHONATAN L 278.01 OBESITY MORBID BMI >40 12/22/2010 MAD POWER SHOVEL OPERATOR HELPER, JHONATAN L 278.01 OBESITY MORBID BMI >40 12/22/2010 MAD POWER SHOVEL OPERATOR HELPER, JHONATAN L 278.01 OBESITY MORBID BMI >40 12/22/2010 MAD POWER SHOVEL OPERATOR HELPER, JHONATAN L 278.01 OBESITY MORBID BMI >40 12/22/2010 MAD POWER SHOVEL OPERATOR HELPER, JHONATAN L 278.01 OBESITY MORBID BMI >40 [...] AMELIA K 525.9 TOOTH PAIN 03/24/2011 MADL POWER SHOVEL OPERATOR HELPER, JHONATAN L 525.9 TOOTH PAIN 03/24/2011 MADL POWER SHOVEL OPERATOR HELPER, JHONATAN L 525.9 TOOTH PAIN 03/24/2011 MADL POWER SHOVEL OPERATOR HELPER, JHONATAN L 525.9 TOOTH PAIN 03/24/2011 CURRIE DO, AMELIA K 525.9 TOOTH PAIN 03/24/2011 MADL POWER SHOVEL OPERATOR HELPER, JHONATAN L 525.9 TOOTH PAIN 03/24/2011 MADL POWER SHOVEL OPERATOR HELPER, JHONATAN L 525.9 TOOTH PAIN 03/24/2011 MADL POWER SHOVEL OPERATOR HELPER, JHONATAN L 525.9 TOOTH PAIN 03/24/2011 CURRIE DO, AMELIA K 525.9 TOOTH PAIN 03/24/2011 MADL POWER SHOVEL OPERATOR HELPER, JHONATAN L 525.9 TOOTH PAIN 03/24/2011 MADL POWER SHOVEL OPERATOR HELPER, JHONATAN L 525.9 TOOTH PAIN 03/24/2011 MAVERICK POWER SHOVEL OPERATOR HELPER, ZACHARIAH R 525.9 TOOTH PAIN 03/24/2011 MADL POWER SHOVEL OPERATOR HELPER, JHONATAN L 525.9 TOOTH PAIN 03/24/2011 MADL POWER SHOVEL OPERATOR HELPER, JHONATAN L 525.9 TOOTH PAIN 03/24/2011 MADL POWER SHOVEL OPERATOR HELPER, JHONATAN L 525.9 TOOTH PAIN 03/24/2011 MADL POWER SHOVEL OPERATOR HELPER, JHONATAN L 525.9 TOOTH PAIN 03/24/2011 MADL POWER SHOVEL OPERATOR HELPER, JHONATAN L 525.9 TOOTH PAIN 03/24/2011 MADL POWER SHOVEL OPERATOR HELPER, JHONATAN L 525.9 TOOTH PAIN 03/24/2011 CURRIE DO, AMELIA K 525.9 TOOTH PAIN 03/24/2011 MADL POWER SHOVEL OPERATOR HELPER, JHONATAN L 525.9 TOOTH PAIN 03/24/2011 BLANCHE POWER SHOVEL OPERATOR HELPER, BHARAT S 525.9 TOOTH PAIN 03/24/2011 525.9 TOOTH PAIN 03/24/2011 MAVERICK POWER SHOVEL OPERATOR HELPER, ZACHARIAH R 525.9 TOOTH PAIN 03/24/2011 SUZY [...] K 414.00 ASYMPTOMATIC CORONARY ARTERIOSCLEROSIS 07/12/2012 CHARITY POWER SHOVEL OPERATOR HELPER, MARCI A 401.1 ESSENTIAL HYPERTENSION BENIGN 07/12/2012 CHARITY POWER SHOVEL OPERATOR HELPER, MARCI A 414.00 ASYMPTOMATIC CORONARY ARTERIOSCLEROSIS 07/12/2012 MADL POWER SHOVEL OPERATOR HELPER, JHONATAN L 401.1 ESSENTIAL HYPERTENSION BENIGN 07/12/2012 MADL POWER SHOVEL OPERATOR HELPER, JHONATAN L 414.00 ASYMPTOMATIC CORONARY ARTERIOSCLEROSIS 07/12/2012 401.1 ESSENTIAL HYPERTENSION BENIGN 07/12/2012 414.00 ASYMPTOMATIC CORONARY ARTERIOSCLEROSIS 07/12/2012 CURRIE DO, AMELIA K 401.1 ESSENTIAL HYPERTENSION BENIGN 07/12/2012 CURRIE DO, AMELIA K 414.00 ASYMPTOMATIC CORONARY ARTERIOSCLEROSIS 07/12/2012 CRURIE DO, AMELIA K 401.1 ESSENTIAL HYPERTENSION BENIGN 07/12/2012 CURRIE DO, AMELIA K 414.00 ASYMPTOMATIC CORONARY ARTERIOSCLEROSIS 07/12/2012 MADL POWER SHOVEL OPERATOR HELPER, JHONATAN L 401.1 ESSENTIAL HYPERTENSION BENIGN 07/12/2012 MADL POWER SHOVEL OPERATOR HELPER, JHONATAN L 414.00 ASYMPTOMATIC CORONARY ARTERIOSCLEROSIS 07/12/2012 MADL POWER SHOVEL OPERATOR HELPER, JHONATAN L 401.1 ESSENTIAL HYPERTENSION BENIGN 07/12/2012 MADL POWER SHOVEL OPERATOR HELPER, JHONATAN L 414.00 ASYMPTOMATIC CORONARY ARTERIOSCLEROSIS 07/12/2012 MADL POWER SHOVEL OPERATOR HELPER, JHONATAN L 401.1 ESSENTIAL HYPERTENSION BENIGN 07/12/2012 MADL POWER SHOVEL OPERATOR HELPER, JHONATAN L 414.00 ASYMPTOMATIC CORONARY ARTERIOSCLEROSIS 07/12/2012 CURRIE DO, AMELIA K 401.1 ESSENTIAL HYPERTENSION BENIGN 07/12/2012 CURRIE DO, AMELIA K 414.00 ASYMPTOMATIC CORONARY ARTERIOSCLEROSIS 07/12/2012 MADL POWER SHOVEL OPERATOR HELPER, JHONATAN L 401.1 ESSENTIAL HYPERTENSION BENIGN 07/12/2012 MADL POWER SHOVEL OPERATOR HELPER, JHONATAN L 414.00 ASYMPTOMATIC CORONARY ARTERIOSCLEROSIS 07/12/2012 MADL POWER SHOVEL OPERATOR HELPER, JHONATAN L 401.1 ESSENTIAL HYPERTENSION BENIGN 07/12/2012 MADL POWER SHOVEL OPERATOR HELPER, JHONATAN L 414.00 ASYMPTOMATIC CORONARY ARTERIOSCLEROSIS 07/12/2012 MADL POWER SHOVEL OPERATOR HELPER, JHONATAN L 401.1 ESSENTIAL HYPERTENSION BENIGN 07/12/2012 MADL POWER SHOVEL OPERATOR HELPER, JHONATAN L 414.00 ASYMPTOMATIC CORONARY ARTERIOSCLEROSIS 07/12/2012 CURRIE DO, AMELIA K 401.1 ESSENTIAL HYPERTENSION BENIGN 07/12/2012 CURRIE DO, AMELIA K 414.00 ASYMPTOMATIC CORONARY ARTERIOSCLEROSIS 07/12/2012 MADL POWER SHOVEL OPERATOR HELPER, JHONATAN L 401.1 ESSENTIAL HYPERTENSION BENIGN 07/12/2012 MADL POWER SHOVEL OPERATOR HELPER, JHONATAN L 414.00 ASYMPTOMATIC CORONARY ARTERIOSCLEROSIS 07/12/2012 MADL POWER SHOVEL OPERATOR HELPER, JHONATAN L 401.1 ESSENTIAL HYPERTENSION BENIGN 07/12/2012 MADL POWER SHOVEL OPERATOR HELPER, JHONATAN L 414.00 ASYMPTOMATIC CORONARY ARTERIOSCLEROSIS 07/12/2012 MAVERICK POWER SHOVEL OPERATOR HELPER, ZACHARIAH R 401.1 ESSENTIAL HYPERTENSION BENIGN 07/12/2012 MAVERICK POWER SHOVEL OPERATOR HELPER, ZACHARIAH R 414.00 ASYMPTOMATIC CORONARY ARTERIOSCLEROSIS 07/12/2012 MADL POWER SHOVEL OPERATOR HELPER, JHONATAN L 401.1 ESSENTIAL HYPERTENSION BENIGN 07/12/2012 MADL POWER SHOVEL OPERATOR HELPER, JHONATAN L 414.00 ASYMPTOMATIC CORONARY ARTERIOSCLEROSIS 07/12/2012 MADL POWER SHOVEL OPERATOR HELPER, JHONATAN L 401.1 ESSENTIAL HYPERTENSION BENIGN 07/12/2012 MADL POWER SHOVEL OPERATOR HELPER, JHONATAN L 414.00 ASYMPTOMATIC CORONARY ARTERIOSCLEROSIS 07/12/2012 MADL POWER SHOVEL OPERATOR HELPER, JHONATAN L 401.1 ESSENTIAL HYPERTENSION BENIGN 07/12/2012 MADL POWER SHOVEL OPERATOR HELPER, JHONATAN L 414.00 ASYMPTOMATIC CORONARY ARTERIOSCLEROSIS 07/12/2012 MADL POWER SHOVEL OPERATOR HELPER, JHONATAN L 401.1 ESSENTIAL HYPERTENSION BENIGN 07/12/2012 MADL POWER SHOVEL OPERATOR HELPER, JHONATAN L 414.00 ASYMPTOMATIC CORONARY ARTERIOSCLEROSIS 07/12/2012 MADL POWER SHOVEL OPERATOR HELPER, JHONATAN L 401.1 ESSENTIAL HYPERTENSION BENIGN 07/12/2012 MADL POWER SHOVEL OPERATOR HELPER, JHONATAN L 414.00 ASYMPTOMATIC CORONARY ARTERIOSCLEROSIS 07/12/2012 MADL POWER SHOVEL OPERATOR HELPER, JHONATAN L 401.1 ESSENTIAL HYPERTENSION BENIGN 07/12/2012 MADL POWER SHOVEL OPERATOR HELPER, JHONATAN L 414.00 ASYMPTOMATIC CORONARY ARTERIOSCLEROSIS 07/12/2012 CURRIE DO, AMELIA K 401.1 ESSENTIAL HYPERTENSION BENIGN 07/12/2012 CURRIE DO, AMELIA K 414.00 ASYMPTOMATIC CORONARY ARTERIOSCLEROSIS 07/12/2012 MADL POWER SHOVEL OPERATOR HELPER, JHONATAN L 401.1 ESSENTIAL HYPERTENSION BENIGN 07/12/2012 MADL POWER SHOVEL OPERATOR HELPER, JHONATAN L 414.00 ASYMPTOMATIC CORONARY ARTERIOSCLEROSIS 07/12/2012 BLANCHE POWER SHOVEL OPERATOR HELPER, BHARAT S 401.1 ESSENTIAL HYPERTENSION BENIGN 07/12/2012 BLANCHE POWER SHOVEL OPERATOR HELPER, BHARAT S 414.00 ASYMPTOMATIC CORONARY ARTERIOSCLEROSIS 07/12/2012 401.1 ESSENTIAL HYPERTENSION BENIGN 07/12/2012 414.00 ASYMPTOMATIC CORONARY ARTERIOSCLEROSIS 07/12/2012 MAVERICK POWER SHOVEL OPERATOR HELPER, ZACHARIAH R 401.1 ESSENTIAL HYPERTENSION BENIGN 07/12/2012 MAVERICK POWER SHOVEL OPERATOR HELPER, ZACHARIAH R 414.00 ASYMPTOMATIC CORONARY ARTERIOSCLEROSIS 07/12/2012 [...] SCREENING FOR MALIGNANT NEOPLASMS COLON 01/16/2013 CHARITY POWER SHOVEL OPERATOR HELPER, MARCI A V65.49 OTHER SPECIFIED COUNSELING 01/16/2013 CHARITY POWER SHOVEL OPERATOR HELPER, MARCI A V73.81 HPV SCREENING 01/16/2013 CHARITY POWER SHOVEL OPERATOR HELPER, MARCI A V76.10 BREAST CANCER SCREENING 01/16/2013 CHARITY POWER SHOVEL OPERATOR HELPER, MARCI A V76.51 SPECIAL SCREENING FOR MALIGNANT NEOPLASMS COLON 01/16/2013 MADL POWER SHOVEL OPERATOR HELPERDAVIDA L V65.49 OTHER SPECIFIED COUNSELING 01/16/2013 MADL POWER SHOVEL OPERATOR HELPER, JHONATAN L V73.81 HPV SCREENING 01/16/2013 MADL POWER SHOVEL OPERATOR HELPER, JHONATAN L V76.10 BREAST CANCER SCREENING 01/16/2013 MADL POWER SHOVEL OPERATOR HELPER, JHONATAN L V76.51 SPECIAL SCREENING FOR MALIGNANT NEOPLASMS COLON 01/16/2013 V65.49 OTHER SPECIFIED COUNSELING 01/16/2013 V73.81 HPV SCREENING 01/16/2013 V76.10 BREAST CANCER SCREENING 01/16/2013 V76.51 SPECIAL SCREENING FOR MALIGNANT NEOPLASMS COLON 01/16/2013 CURREI DO, AMELIA K V65.49 OTHER SPECIFIED COUNSELING [...] SCREENING FOR MALIGNANT NEOPLASMS COLON 01/16/2013 MADL POWER SHOVEL OPERATOR HELPER, JHONATAN L V65.49 OTHER SPECIFIED COUNSELING 01/16/2013 MADL POWER SHOVEL OPERATOR HELPER, JHONATAN L V73.81 HPV SCREENING 01/16/2013 MADL POWER SHOVEL OPERATOR HELPER, JHONATAN L V76.10 BREAST CANCER SCREENING 01/16/2013 MADL POWER SHOVEL OPERATOR HELPER, JHONATAN L V76.51 SPECIAL SCREENING FOR MALIGNANT NEOPLASMS COLON 01/16/2013 MADL POWER SHOVEL OPERATOR HELPER, JHONATAN L V65.49 OTHER SPECIFIED COUNSELING 01/16/2013 MADL POWER SHOVEL OPERATOR HELPER, JHONATAN L V73.81 HPV SCREENING 01/16/2013 MADL POWER SHOVEL OPERATOR HELPER, JHONATAN L V76.10 BREAST CANCER SCREENING 01/16/2013 MADL POWER SHOVEL OPERATOR HELPER, JHONATAN L V76.51 SPECIAL SCREENING FOR MALIGNANT NEOPLASMS COLON 01/16/2013 MADL POWER SHOVEL OPERATOR HELPER, JHONATAN L V65.49 OTHER SPECIFIED COUNSELING 01/16/2013 MADL POWER SHOVEL OPERATOR HELPER, JHONATAN L V73.81 HPV SCREENING 01/16/2013 MAD[facility] POWER SHOVEL OPERATOR HELPER, JHONATAN L V76.10 BREAST CANCER SCREENING 01/16/2013 MADL POWER SHOVEL OPERATOR HELPER, JHONATAN L V76.51 SPECIAL SCREENING FOR MALIGNANT NEOPLASMS COLON 01/16/2013 CURRIE DO, AMELIA K V65.49 OTHER SPECIFIED COUNSELING 01/16/2013 CURRIE DO, AMELIA K V73.81 HPV SCREENING 01/16/2013 CURRIE DO, AMELIA K V76.10 BREAST CANCER SCREENING 01/16/2013 CURRIE DO, AMELIA K V76.51 SPECIAL SCREENING FOR MALIGNANT NEOPLASMS COLON 01/16/2013 MADL POWER SHOVEL OPERATOR HELPER, JHONATAN L V65.49 OTHER SPECIFIED COUNSELING 01/16/2013 MADL POWER SHOVEL OPERATOR HELPER, JHONATAN L V73.81 HPV SCREENING 01/16/2013 MADL POWER SHOVEL OPERATOR HELPER, JHONATAN L V76.10 BREAST CANCER SCREENING 01/16/2013 MADL POWER SHOVEL OPERATOR HELPER, JHONATAN L V76.51 SPECIAL SCREENING FOR MALIGNANT NEOPLASMS COLON 01/16/2013 MADL POWER SHOVEL OPERATOR HELPER, JHONATAN L V65.49 OTHER SPECIFIED COUNSELING 01/16/2013 MADL POWER SHOVEL OPERATOR HELPER, JHONATAN L V73.81 HPV SCREENING 01/16/2013 MADL POWER SHOVEL OPERATOR HELPER, JHONATAN L V76.10 BREAST CANCER SCREENING 01/16/2013 MADL POWER SHOVEL OPERATOR HELPER, JHONATAN L V76.51 SPECIAL SCREENING FOR MALIGNANT NEOPLASMS COLON 01/16/2013 MADL POWER SHOVEL OPERATOR HELPER, JHONATAN L V65.49 OTHER SPECIFIED COUNSELING 01/16/2013 MADL POWER SHOVEL OPERATOR HELPER, JHONATAN L V73.81 HPV SCREENING 01/16/2013 MADL POWER SHOVEL OPERATOR HELPER, JHONATAN L V76.10 BREAST CANCER SCREENING 01/16/2013 MADL POWER SHOVEL OPERATOR HELPER, JHONATAN L V76.51 SPECIAL SCREENING FOR MALIGNANT NEOPLASMS COLON 01/16/2013 CURRIE DO, AMELIA K V65.49 OTHER SPECIFIED COUNSELING 01/16/2013 CURRIE DO, AMELIA K V73.81 HPV SCREENING 01/16/2013 CURRIE DO, AMELIA K V76.10 BREAST CANCER SCREENING 01/16/2013 CURRIE DO, AMELIA K V76.51 SPECIAL SCREENING FOR MALIGNANT NEOPLASMS COLON 01/16/2013 MADL POWER SHOVEL OPERATOR HELPER, JHONATAN L V65.49 OTHER SPECIFIED COUNSELING 01/16/2013 MADL POWER SHOVEL OPERATOR HELPER, JHONATAN L V73.81 HPV SCREENING 01/16/2013 MADL POWER SHOVEL OPERATOR HELPER, JHONATAN L V76.10 BREAST CANCER SCREENING 01/16/2013 MADL POWER SHOVEL OPERATOR HELPER, JHONATAN L V76.51 SPECIAL SCREENING FOR MALIGNANT NEOPLASMS COLON 01/16/2013 MADL POWER SHOVEL OPERATOR HELPER, JHONATAN L V65.49 OTHER SPECIFIED COUNSELING 01/16/2013 MADL POWER SHOVEL OPERATOR HELPER, JHONATAN L V73.81 HPV SCREENING 01/16/2013 MADL POWER SHOVEL OPERATOR HELPER, JHONATAN L V76.10 BREAST CANCER SCREENING 01/16/2013 MADL POWER SHOVEL OPERATOR HELPER, JHONATAN L V76.51 SPECIAL SCREENING FOR MALIGNANT NEOPLASMS COLON 01/16/2013 [facility]AVERICK POWER SHOVEL OPERATOR HELPER, ZACHARIAH R V65.49 OTHER SPECIFIED COUNSELING 01/16/2013 MAVERICK POWER SHOVEL OPERATOR HELPER, ZACHARIAH R V73.81 HPV SCREENING 01/16/2013 MAVERICK POWER SHOVEL OPERATOR HELPER, ZACHARIAH R V76.10 BREAST CANCER SCREENING 01/16/2013 MAVERICK POWER SHOVEL OPERATOR HELPER, ZACHARIAH R V76.51 SPECIAL SCREENING FOR MALIGNANT NEOPLASMS COLON 01/16/2013 MADL POWER SHOVEL OPERATOR HELPER, JHONATAN L V65.49 OTHER SPECIFIED COUNSELING 01/16/2013 MADL POWER SHOVEL OPERATOR HELPER, JHONATAN L V73.81 HPV SCREENING 01/16/2013 MAD POWER SHOVEL OPERATOR HELPER, JHONATAN L V76.10 BREAST CANCER SCREENING 01/16/2013 [facility] POWER SHOVEL OPERATOR HELPER, JHONATAN L V76.51 SPECIAL SCREENING FOR MALIGNANT NEOPLASMS COLON 01/16/2013 MAD POWER SHOVEL OPERATOR HELPER, JHONATAN L V65.49 OTHER SPECIFIED COUNSELING 01/16/2013 MADL POWER SHOVEL OPERATOR HELPER, JHONATAN L V73.81 HPV SCREENING 01/16/2013 MADL POWER SHOVEL OPERATOR HELPER, JHONATAN L V76.10 BREAST CANCER SCREENING 01/16/2013 MADL POWER SHOVEL OPERATOR HELPER, JHONATAN L V76.51 SPECIAL SCREENING FOR MALIGNANT NEOPLASMS COLON 01/16/2013 MADL POWER SHOVEL OPERATOR HELPER, JHONATAN L V65.49 OTHER SPECIFIED COUNSELING 01/16/2013 MADL POWER SHOVEL OPERATOR HELPER, JHONATAN L V73.81 HPV SCREENING 01/16/2013 MADL POWER SHOVEL OPERATOR HELPER, JHONATAN L V76.10 BREAST CANCER SCREENING 01/16/2013 MADL POWER SHOVEL OPERATOR HELPER, JHONATAN L V76.51 SPECIAL SCREENING FOR MALIGNANT NEOPLASMS COLON 01/16/2013 MADL POWER SHOVEL OPERATOR HELPER, JHONATAN L V65.49 OTHER SPECIFIED COUNSELING 01/16/2013 MADL POWER SHOVEL OPERATOR HELPER, JHONATAN L V73.81 HPV SCREENING 01/16/2013 MADL POWER SHOVEL OPERATOR HELPER, JHONATAN L V76.10 BREAST CANCER SCREENING 01/16/2013 MADL POWER SHOVEL OPERATOR HELPER, JHONATAN L V76.51 SPECIAL SCREENING FOR MALIGNANT NEOPLASMS COLON 01/16/2013 MADL POWER SHOVEL OPERATOR HELPER, JHONATAN L V65.49 OTHER SPECIFIED COUNSELING 01/16/2013 MADL POWER SHOVEL OPERATOR HELPER, JHONATAN L V73.81 HPV SCREENING 01/16/2013 MADL POWER SHOVEL OPERATOR HELPER, JHONATAN L V76.10 BREAST CANCER SCREENING 01/16/2013 MADL POWER SHOVEL OPERATOR HELPER, JHONATAN L V76.51 SPECIAL SCREENING FOR MALIGNANT NEOPLASMS COLON 01/16/2013 MADL POWER SHOVEL OPERATOR HELPER, JHONATAN L V65.49 OTHER SPECIFIED COUNSELING 01/16/2013 MADL POWER SHOVEL OPERATOR HELPER, JHONATAN L V73.81 HPV SCREENING 01/16/2013 MADL POWER SHOVEL OPERATOR HELPER, JHONATAN L V76.10 BREAST CANCER SCREENING 01/16/2013 MADL POWER SHOVEL OPERATOR HELPER, JHONATAN L V76.51 SPECIAL SCREENING FOR MALIGNANT NEOPLASMS COLON 01/16/2013 CURRIE DO AMELIA K V65.49 OTHER SPECIFIED COUNSELING 01/16/2013 CURRIE DO AMELIA K V73.81 HPV SCREENING 01/16/2013 CURRIE DO AMELIA K V76.10 BREAST CANCER SCREENING 01/16/2013 CURRIE DO AMELIA K V76.51 SPECIAL SCREENING FOR MALIGNANT NEOPLASMS COLON 01/16/2013 MAD[facility] POWER SHOVEL OPERATOR HELPER, JHONATAN L V65.49 OTHER SPECIFIED COUNSELING 01/16/2013 MAD[facility] POWER SHOVEL OPERATOR HELPER, JHONATAN L V73.81 HPV SCREENING 01/16/2013 MADL POWER SHOVEL OPERATOR HELPER, JHONATAN L V76.10 BREAST CANCER SCREENING 01/16/2013 MAD POWER SHOVEL OPERATOR HELPER, JHONATAN L V76.51 SPECIAL SCREENING FOR MALIGNANT NEOPLASMS COLON 01/16/2013 [facility] POWER SHOVEL OPERATOR HELPER, BHARAT S V65.49 OTHER SPECIFIED COUNSELING 01/16/2013 [facility] POWER SHOVEL OPERATOR HELPER, BHARAT S V73.81 HPV SCREENING 01/16/2013 [facility]ANCHE POWER SHOVEL OPERATOR HELPER, BHARAT S V76.10 BREAST CANCER SCREENING 01/16/2013 [facility]ANCHE POWER SHOVEL OPERATOR HELPER, BHARAT S V76.51 SPECIAL SCREENING FOR MALIGNANT [...] 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 05/08/2013 MAD[facility] POWER SHOVEL OPERATOR HELPER, JHONATAN L 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 05/08/2013 [facility] POWER SHOVEL OPERATOR HELPER, JHONATAN L 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 05/08/2013 CURRIE DO, AMELIA K 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 05/08/2013 [facility] POWER SHOVEL OPERATOR HELPER, JHONATAN L 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 05/08/2013 [facility] POWER SHOVEL OPERATOR HELPER, JHONATAN L 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 05/08/2013 [facility] POWER SHOVEL OPERATOR HELPER, JHONATAN L 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 05/08/2013 CURRIE DO, AMELIA K 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 05/08/2013 [facility] POWER SHOVEL OPERATOR HELPER, JHONATAN L 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 05/08/2013 [facility] POWER SHOVEL OPERATOR HELPER, JHONATAN L 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 05/08/2013 [facility] POWER SHOVEL OPERATOR HELPER, ZACHARIAH R 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 05/08/2013 [facility] POWER SHOVEL OPERATOR HELPER, JHONATAN L 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 05/08/2013 [facility] POWER SHOVEL OPERATOR HELPER, JHONATAN L 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 05/08/2013 [facility] POWER SHOVEL OPERATOR HELPER, JHONATAN L 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 05/08/2013 [facility] POWER SHOVEL OPERATOR HELPER, JHONATAN L 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 05/08/2013 [facility] POWER SHOVEL OPERATOR HELPER, JHONATAN L 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 05/08/2013 [facility] POWER SHOVEL OPERATOR HELPER, JHONATAN L 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 05/08/2013 CURRIE DO, AMELIA K 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 05/08/2013 [facility] POWER SHOVEL OPERATOR HELPER, JHONATAN L 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 05/08/2013 [facility] POWER SHOVEL OPERATOR HELPER, BHARAT S 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 05/08/2013 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 05/08/2013 [facility] POWER SHOVEL OPERATOR HELPER, ZACHARIAH R 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 [...] AMELIA K V04.81 FLU SHOT 10/02/2013 [facility] POWER SHOVEL OPERATOR HELPER, MARCI A V04.81 FLU SHOT 10/02/2013 MAD[facility] POWER SHOVEL OPERATOR HELPER, JHONATAN L V04.81 FLU SHOT 10/02/2013 V04.81 FLU SHOT 10/02/2013 CURRIE DO, AMELIA K V04.81 FLU SHOT 10/02/2013 CURRIE DO, AEMLIA K V04.81 FLU SHOT 10/02/2013 [facility] POWER SHOVEL OPERATOR HELPER, JHONATAN L V04.81 FLU SHOT 10/02/2013 MAD[facility] POWER SHOVEL OPERATOR HELPER, JHONATAN L V04.81 FLU SHOT 10/02/2013 MAD[facility] POWER SHOVEL OPERATOR HELPER, JHONATAN L V04.81 FLU SHOT 10/02/2013 CURRIE DO, AMELIA K V04.81 FLU SHOT 10/02/2013 MAD[facility] POWER SHOVEL OPERATOR HELPER, JHONATAN L V04.81 FLU SHOT 10/02/2013 MAD[facility] POWER SHOVEL OPERATOR HELPER, JHONATAN L V04.81 FLU SHOT 10/02/2013 MADL POWER SHOVEL OPERATOR HELPER, JHONATAN L V04.81 FLU SHOT 10/02/2013 CURRIE DO, AMELIA K V04.81 FLU SHOT 10/02/2013 MAD[facility] POWER SHOVEL OPERATOR HELPER, JHONATAN L V04.81 FLU SHOT 10/02/2013 MADL POWER SHOVEL OPERATOR HELPER, JHONATAN L V04.81 FLU SHOT 10/02/2013 ZACHARIAH TEMPLE APRN R V04.81 FLU SHOT 10/02/2013 [facility] POWER SHOVEL OPERATOR HELPER, JHONATAN L V04.81 FLU SHOT 10/02/2013 MAD[facility] POWER SHOVEL OPERATOR HELPER, JHONATAN L V04.81 FLU SHOT 10/02/2013 MADL POWER SHOVEL OPERATOR HELPER, JHONATAN L V04.81 FLU SHOT 10/02/2013 MADL POWER SHOVEL OPERATOR HELPER, JHONATAN L V04.81 FLU SHOT 10/02/2013 MADL POWER SHOVEL OPERATOR HELPER, JHONATAN L V04.81 FLU SHOT 10/02/2013 MADL POWER SHOVEL OPERATOR HELPER, JHONATAN L V04.81 FLU SHOT 10/02/2013 CURRIE DO, AMELIA K V04.81 FLU SHOT 10/02/2013 MAD[facility] POWER SHOVEL OPERATOR HELPER, JHONATAN L V04.81 FLU SHOT 10/02/2013 [facility] POWER SHOVEL OPERATOR HELPER, BHARAT S V04.81 FLU SHOT 10/02/2013 V04.81 FLU SHOT 10/02/2013 [facility] POWER SHOVEL OPERATOR HELPER, ZACHARIAH R V04.81 FLU SHOT 10/02/2013 [facility] [...] K 790.21 IMPAIRED FASTING GLUCOSE 12/06/2013 CHARITY POWER SHOVEL OPERATOR HELPER, MARCI A 496 CHRONIC OBSTRUCTIVE PULMONARY DISEASE 12/06/2013 CHARITY POWER SHOVEL OPERATOR HELPER, MARCI A 790.21 IMPAIRED FASTING GLUCOSE 12/06/2013 MADL POWER SHOVEL OPERATOR HELPER, JHONATAN L 496 CHRONIC OBSTRUCTIVE PULMONARY DISEASE 12/06/2013 MADL POWER SHOVEL OPERATOR HELPER, JHONATAN L 790.21 IMPAIRED FASTING GLUCOSE 12/06/2013 496 CHRONIC OBSTRUCTIVE PULMONARY DISEASE 12/06/2013 790.21 IMPAIRED FASTING GLUCOSE 12/06/2013 CURRIE DO, AMELIA K 496 CHRONIC OBSTRUCTIVE PULMONARY DISEASE 12/06/2013 CURRIE DO, AMELIA K 790.21 IMPAIRED FASTING GLUCOSE 12/06/2013 CURRIE DO, AMELIA K 496 CHRONIC OBSTRUCTIVE PULMONARY DISEASE 12/06/2013 CURRIE DO, AMELIA K 790.21 IMPAIRED FASTING GLUCOSE 12/06/2013 MADL POWER SHOVEL OPERATOR HELPER, JHONATAN L 496 CHRONIC OBSTRUCTIVE PULMONARY DISEASE 12/06/2013 MADL POWER SHOVEL OPERATOR HELPER, JHONATAN L 790.21 IMPAIRED FASTING GLUCOSE 12/06/2013 MADL POWER SHOVEL OPERATOR HELPER, JHONATAN L 496 CHRONIC OBSTRUCTIVE PULMONARY DISEASE 12/06/2013 MADL POWER SHOVEL OPERATOR HELPER, JHONATAN L 790.21 IMPAIRED FASTING GLUCOSE 12/06/2013 MADL POWER SHOVEL OPERATOR HELPER, JHONATAN L 496 CHRONIC OBSTRUCTIVE PULMONARY DISEASE 12/06/2013 MADL POWER SHOVEL OPERATOR HELPER, JHONATAN L 790.21 IMPAIRED FASTING GLUCOSE 12/06/2013 CURRIE DO, AMELIA K 496 CHRONIC OBSTRUCTIVE PULMONARY DISEASE 12/06/2013 CURRIE DO, AMELIA K 790.21 IMPAIRED FASTING GLUCOSE 12/06/2013 MADL POWER SHOVEL OPERATOR HELPER, JHONATAN L 496 CHRONIC OBSTRUCTIVE PULMONARY DISEASE 12/06/2013 MADL POWER SHOVEL OPERATOR HELPER, JHONATAN L 790.21 IMPAIRED FASTING GLUCOSE 12/06/2013 MADL POWER SHOVEL OPERATOR HELPER, JHONATAN L 496 CHRONIC OBSTRUCTIVE PULMONARY DISEASE 12/06/2013 MADL POWER SHOVEL OPERATOR HELPER, JHONATAN L 790.21 IMPAIRED FASTING GLUCOSE 12/06/2013 MADL POWER SHOVEL OPERATOR HELPER, JHONATAN L 496 CHRONIC OBSTRUCTIVE PULMONARY DISEASE 12/06/2013 MADL POWER SHOVEL OPERATOR HELPER, JHONATAN L 790.21 IMPAIRED FASTING GLUCOSE 12/06/2013 CURRIE DO, AMELIA K 496 CHRONIC OBSTRUCTIVE PULMONARY DISEASE 12/06/2013 CURRIE DO, AMELIA K 790.21 IMPAIRED FASTING GLUCOSE 12/06/2013 MAD[facility] POWER SHOVEL OPERATOR HELPER, JHONATAN L 496 CHRONIC OBSTRUCTIVE PULMONARY DISEASE 12/06/2013 MADL POWER SHOVEL OPERATOR HELPER, JHONATAN L 790.21 IMPAIRED FASTING GLUCOSE 12/06/2013 MADL POWER SHOVEL OPERATOR HELPER, JHONATAN L 496 CHRONIC OBSTRUCTIVE PULMONARY DISEASE 12/06/2013 MADL POWER SHOVEL OPERATOR HELPER, JHONATAN L 790.21 IMPAIRED FASTING GLUCOSE 12/06/2013 MAVERICK FUCHS ZACHARIAH R 496 CHRONIC OBSTRUCTIVE PULMONARY DISEASE 12/06/2013 [facility] POWER SHOVEL OPERATOR HELPER, ZACHARIAH R 790.21 IMPAIRED FASTING GLUCOSE 12/06/2013 [facility] POWER SHOVEL OPERATOR HELPER, JHONATAN L 496 CHRONIC OBSTRUCTIVE PULMONARY DISEASE 12/06/2013 MAD[facility] POWER SHOVEL OPERATOR HELPER, JHONATAN L 790.21 IMPAIRED FASTING GLUCOSE 12/06/2013 MAD[facility] POWER SHOVEL OPERATOR HELPER, JHONATAN L 496 CHRONIC OBSTRUCTIVE PULMONARY DISEASE 12/06/2013 M[facility] POWER SHOVEL OPERATOR HELPER, JHONATAN L 790.21 IMPAIRED FASTING GLUCOSE 12/06/2013 [facility] POWER SHOVEL OPERATOR HELPER, JHONATAN L 496 CHRONIC OBSTRUCTIVE PULMONARY DISEASE 12/06/2013 MAD[facility] POWER SHOVEL OPERATOR HELPER, JHONATAN L 790.21 IMPAIRED FASTING GLUCOSE 12/06/2013 MAD[facility] POWER SHOVEL OPERATOR HELPER, JHONATAN L 496 CHRONIC OBSTRUCTIVE PULMONARY DISEASE 12/06/2013 [facility] POWER SHOVEL OPERATOR HELPER, JHONATAN L 790.21 IMPAIRED FASTING GLUCOSE 12/06/2013 MAD[facility] POWER SHOVEL OPERATOR HELPER, JHONATAN L 496 CHRONIC OBSTRUCTIVE PULMONARY DISEASE 12/06/2013 [facility] POWER SHOVEL OPERATOR HELPER, JHONATAN L 790.21 IMPAIRED FASTING GLUCOSE 12/06/2013 [facility] POWER SHOVEL OPERATOR HELPER, JHONATAN L 496 CHRONIC OBSTRUCTIVE PULMONARY DISEASE 12/06/2013 [facility] POWER SHOVEL OPERATOR HELPER, JHONATAN L 790.21 IMPAIRED FASTING GLUCOSE 12/06/2013 CURRIE DO, AMELIA K 496 CHRONIC OBSTRUCTIVE PULMONARY DISEASE 12/06/2013 CURRIE DO AMELIA K 790.21 IMPAIRED FASTING GLUCOSE 12/06/2013 [facility] POWER SHOVEL OPERATOR HELPER, JHONATAN L 496 CHRONIC OBSTRUCTIVE PULMONARY DISEASE 12/06/2013 [facility] POWER SHOVEL OPERATOR HELPER, JHONATAN L 790.21 IMPAIRED FASTING GLUCOSE 12/06/2013 [facility] POWER SHOVEL OPERATOR HELPER, BAHRAT S 496 CHRONIC OBSTRUCTIVE PULMONARY DISEASE 12/06/2013 [facility] POWER SHOVEL OPERATOR HELPER, BHARAT S 790.21 IMPAIRED FASTING GLUCOSE 12/06/2013 496 CHRONIC OBSTRUCTIVE PULMONARY DISEASE 12/06/2013 790.21 IMPAIRED FASTING GLUCOSE 12/06/2013 [facility] POWER SHOVEL OPERATOR HELPER, ZACHARIAH R 496 CHRONIC OBSTRUCTIVE PULMONARY DISEASE 12/06/2013 [facility] POWER SHOVEL OPERATOR HELPER, ZACHARIAH R 790.21 IMPAIRED FASTING GLUCOSE 12/06/2013 [...] IN JOINT INVOLVING SHOULDER REGION 01/22/2014 [facility] POWER SHOVEL OPERATOR HELPER, JHONATAN L 719.41 PAIN IN JOINT INVOLVING SHOULDER REGION 01/22/2014 719.41 PAIN IN JOINT INVOLVING SHOULDER REGION 01/22/2014 CURRIE DO AMELIA K 719.41 PAIN IN JOINT INVOLVING SHOULDER REGION 01/22/2014 CURRIE DO AMELIA K 719.41 PAIN IN JOINT INVOLVING SHOULDER REGION 01/22/2014 [facility] POWER SHOVEL OPERATOR HELPER, JHONATAN L 719.41 PAIN IN JOINT INVOLVING SHOULDER REGION 01/22/2014 MAD[facility] POWER SHOVEL OPERATOR HELPER, JHONATAN L 719.41 PAIN IN JOINT INVOLVING SHOULDER REGION 01/22/2014 [facility] POWER SHOVEL OPERATOR HELPER, JHONATAN L 719.41 PAIN IN JOINT INVOLVING SHOULDER REGION 01/22/2014 CURRIE DO AMELIA K 719.41 PAIN IN JOINT INVOLVING SHOULDER REGION 01/22/2014 [facility] POWER SHOVEL OPERATOR HELPER, JHONATAN L 719.41 PAIN IN JOINT INVOLVING SHOULDER REGION 01/22/2014 [facility] POWER SHOVEL OPERATOR HELPER, JHONATAN L 719.41 PAIN IN JOINT INVOLVING SHOULDER REGION 01/22/2014 [facility] POWER SHOVEL OPERATOR HELPER, JHONATAN L 719.41 PAIN IN JOINT INVOLVING SHOULDER REGION 01/22/2014 CURRIE DO AMELIA K 719.41 PAIN IN JOINT INVOLVING SHOULDER REGION 01/22/2014 [facility] POWER SHOVEL OPERATOR HELPER, JHONATAN L 719.41 PAIN IN JOINT INVOLVING SHOULDER REGION 01/22/2014 [facility] POWER SHOVEL OPERATOR HELPER, JHONATAN L 719.41 PAIN IN JOINT INVOLVING SHOULDER REGION 01/22/2014 ZCAHARIAH TEMPLE APRN 719.41 PAIN IN JOINT INVOLVING SHOULDER REGION 01/22/2014 [facility] POWER SHOVEL OPERATOR HELPER, JHONATAN L 719.41 PAIN IN JOINT INVOLVING SHOULDER REGION 01/22/2014 [facility] POWER SHOVEL OPERATOR HELPER, JHONATAN L 719.41 PAIN IN JOINT INVOLVING SHOULDER REGION 01/22/2014 [facility] POWER SHOVEL OPERATOR HELPER, JHONATAN L 719.41 PAIN IN JOINT INVOLVING SHOULDER REGION 01/22/2014 MAD[facility] POWER SHOVEL OPERATOR HELPERDAVIDA L 719.41 PAIN IN JOINT INVOLVING SHOULDER REGION 01/22/2014 [facility] POWER SHOVEL OPERATOR HELPERDAVIDA L 719.41 PAIN IN JOINT INVOLVING SHOULDER REGION 01/22/2014 M[facility] POWER SHOVEL OPERATOR HELPERDAVIDA L 719.41 PAIN IN JOINT INVOLVING SHOULDER REGION 01/22/2014 AMELIA CURRIE DO K 719.41 PAIN IN JOINT INVOLVING SHOULDER REGION 01/22/2014 XIOMARAL POWER SHOVEL OPERATOR HELPER, JHONATAN L 719.41 PAIN IN JOINT INVOLVING [...] LONG-TERM (CURRENT) USE OF ANTICOAGULANTS 02/06/2014 [facility] POWER SHOVEL OPERATOR HELPER, JHONATAN L 521.00 CARIES 02/06/2014 MAD[facility] POWER SHOVEL OPERATOR HELPER, JHONATAN L V58.61 LONG-TERM (CURRENT) USE OF ANTICOAGULANTS 02/06/2014 521.00 CARIES 02/06/2014 V58.61 LONG-TERM ( CURRENT) USE OF ANTICOAGULANTS 02/06/2014 CURRIE DO, AMELIA K 521.00 CARIES 02/06/2014 CURRIE DO, AMELIA K V58.61 LONG-TERM (CURRENT) USE OF ANTICOAGULANTS 02/06/2014 CURRIE DO, AMELIA K 521.00 CARIES 02/06/2014 CURRIE DO, AMELIA K V58.61 LONG-TERM (CURRENT) USE OF ANTICOAGULANTS 02/06/2014 [facility] POWER SHOVEL OPERATOR HELPER, JHONATAN L 521.00 CARIES 02/06/2014 MADL POWER SHOVEL OPERATOR HELPER, JHONATAN L V58.61 LONG-TERM (CURRENT) USE OF ANTICOAGULANTS 02/06/2014 MAD[facility] POWER SHOVEL OPERATOR HELPER, JHONATAN L 521.00 CARIES 02/06/2014 MADL POWER SHOVEL OPERATOR HELPER, JHONATAN L V58.61 LONG-TERM (CURRENT) USE OF ANTICOAGULANTS 02/06/2014 MADL POWER SHOVEL OPERATOR HELPER, JHONATAN L 521.00 CARIES 02/06/2014 MADL POWER SHOVEL OPERATOR HELPER, JHONATAN L V58.61 LONG-TERM (CURRENT) USE OF ANTICOAGULANTS 02/06/2014 CURRIE DO, AMELIA K 521.00 CARIES 02/06/2014 CURRIE DO, AMELIA K V58.61 LONG-TERM (CURRENT) USE OF ANTICOAGULANTS 02/06/2014 MAD[facility] POWER SHOVEL OPERATOR HELPER, JHONATAN L 521.00 CARIES 02/06/2014 MADL POWER SHOVEL OPERATOR HELPER, JHONATAN L V58.61 LONG-TERM (CURRENT) USE OF ANTICOAGULANTS 02/06/2014 MAD[facility] POWER SHOVEL OPERATOR HELPER, JHONATAN L 521.00 CARIES 02/06/2014 MADL POWER SHOVEL OPERATOR HELPER, JHONATAN L V58.61 LONG-TERM (CURRENT) USE OF ANTICOAGULANTS 02/06/2014 MADL POWER SHOVEL OPERATOR HELPER, JHONATAN L 521.00 CARIES 02/06/2014 MADL POWER SHOVEL OPERATOR HELPER, JHONATAN L V58.61 LONG-TERM (CURRENT) USE OF ANTICOAGULANTS 02/06/2014 CURRIE DO, AMELIA K 521.00 CARIES 02/06/2014 CURRIE DO, AMELIA K V58.61 LONG-TERM (CURRENT) USE OF ANTICOAGULANTS 02/06/2014 MADL POWER SHOVEL OPERATOR HELPER, JHONATAN L 521.00 CARIES 02/06/2014 MADL POWER SHOVEL OPERATOR HELPER, JHONATAN L V58.61 LONG-TERM (CURRENT) USE OF ANTICOAGULANTS 02/06/2014 MAD[facility] POWER SHOVEL OPERATOR HELPER, JHONATAN L 521.00 CARIES 02/06/2014 MADL POWER SHOVEL OPERATOR HELPER, JHONATAN L V58.61 LONG-TERM (CURRENT) USE OF ANTICOAGULANTS 02/06/2014 MAVERICK POWER SHOVEL OPERATOR HELPER, ZACHARIAH R 521.00 CARIES 02/06/2014 MAVERICK POWER SHOVEL OPERATOR HELPER, ZACHARIAH R V58.61 LONG-TERM (CURRENT) USE OF ANTICOAGULANTS 02/06/2014 MADL POWER SHOVEL OPERATOR HELPER, JHONATAN L 521.00 CARIES 02/06/2014 MADL POWER SHOVEL OPERATOR HELPER, JHONATAN L V58.61 LONG-TERM (CURRENT) USE OF ANTICOAGULANTS 02/06/2014 MADL POWER SHOVEL OPERATOR HELPER, JHONATAN L 521.00 CARIES 02/06/2014 MADL POWER SHOVEL OPERATOR HELPER, JHONATAN L V58.61 LONG-TERM (CURRENT) USE OF ANTICOAGULANTS 02/06/2014 MADL POWER SHOVEL OPERATOR HELPER, JHONATAN L 521.00 CARIES 02/06/2014 MADL POWER SHOVEL OPERATOR HELPER, JHONATAN L V58.61 LONG-TERM (CURRENT) USE OF ANTICOAGULANTS 02/06/2014 MADL POWER SHOVEL OPERATOR HELPER, JHONATAN L 521.00 CARIES 02/06/2014 MADL POWER SHOVEL OPERATOR HELPER, JHONATAN L V58.61 LONG-TERM (CURRENT) USE OF ANTICOAGULANTS 02/06/2014 MADL POWER SHOVEL OPERATOR HELPER, JHONATAN L 521.00 CARIES 02/06/2014 MADL POWER SHOVEL OPERATOR HELPER, JHONATAN L V58.61 LONG-TERM (CURRENT) USE OF ANTICOAGULANTS 02/06/2014 MADL POWER SHOVEL OPERATOR HELPER, JHONATAN L 521.00 CARIES 02/06/2014 MADL POWER SHOVEL OPERATOR HELPER, JHONATAN L V58.61 LONG-TERM (CURRENT) USE OF ANTICOAGULANTS 02/06/2014 CURRIE DO, AMELIA K 521.00 CARIES 02/06/2014 CURRIE DO, AMELIA K V58.61 LONG-TERM (CURRENT) USE OF ANTICOAGULANTS 02/06/2014 MADL POWER SHOVEL OPERATOR HELPER, JHONATAN L 521.00 CARIES 02/06/2014 XIOMARAJennifer FUCHS JHONATAN L V58.61 LONG-TERM (CURRENT) USE OF ANTICOAGULANTS 02/06/2014 JOVON MANCIA APRNA S 521.00 CARIES 02/06/2014 BLANCHE POWER SHOVEL OPERATOR HELPER BHARAT S V58.61 LONG-TERM (CURRENT) USE OF ANTICOAGULANTS 02/06/2014 521.00 CARIES 02/06/2014 V58.61 LONG-TERM ( CURRENT) USE OF ANTICOAGULANTS 02/06/2014 MAVERICK POWER SHOVEL OPERATOR HELPER ZACHARIAH R 521.00 CARIES 02/06/2014 MAVERICK POWER SHOVEL OPERATOR HELPER, ZACHARIAH R V58.61 LONG-TERM (CURRENT) USE OF ANTICOAGULANTS 02/06/2014 SUZY SIMMSSSAE 521.00 CARIES 02/06/2014 ALMONTE DDSSAE V58.61 LONG-TERM (CURRENT) USE OF ANTICOAGULANTS 02/26/2014 CURRIE DO, AMELIA K 599.0 URINARY TRACT INFECTION 02/26/2014 CURRIE DO, AMELIA K 599.70 HEMATURIA UNSPECIFIED 02/26/2014 CURRIE DO, AMELIA K 786.2 COUGH 02/26/2014 CURRIE DO, AMELIA K V72.31 PRIVATE INVESTIGATOR SURVEILLANCE EXAM, ROUTINE 02/26/2014 CURRIE DO, AMELIA K V76.2 CERVICAL CANCER SCREENING (PAP SMEAR) 02/26/2014 CURRIE DO, AMELIA K 599.0 URINARY TRACT INFECTION 02/26/2014 CURRIE DO, AMELIA K 599.70 HEMATURIA UNSPECIFIED 02/26/2014 CURRIE DO, AMELIA K 786.2 COUGH 02/26/2014 CURRIE DO, AMELIA K V72.31 PRIVATE INVESTIGATOR SURVEILLANCE EXAM, ROUTINE 02/26/2014 CURRIE DO, AMELIA K V76.2 CERVICAL CANCER SCREENING (PAP SMEAR) 02/26/2014 CHARITY POWER SHOVEL OPERATOR HELPER, MARCI A 599.0 URINARY TRACT INFECTION 02/26/2014 CHARITY POWER SHOVEL OPERATOR HELPER, MARCI A 599.70 HEMATURIA UNSPECIFIED 02/26/2014 CHARITY POWER SHOVEL OPERATOR HELPER, MARCI A 786.2 COUGH 02/26/2014 CHARITY POWER SHOVEL OPERATOR HELPER, MARCI A V72.31 PRIVATE INVESTIGATOR SURVEILLANCE EXAM, ROUTINE 02/26/2014 CHARITY POWER SHOVEL OPERATOR HELPER, MARCI A V76.2 CERVICAL CANCER SCREENING (PAP SMEAR) 02/26/2014 MADL POWER SHOVEL OPERATOR HELPER, JHONATAN L 599.0 URINARY TRACT INFECTION 02/26/2014 MADL POWER SHOVEL OPERATOR HELPER, JHONATAN L 599.70 HEMATURIA UNSPECIFIED 02/26/2014 MADL POWER SHOVEL OPERATOR HELPER, JHONATAN L 786.2 COUGH 02/26/2014 MADL POWER SHOVEL OPERATOR HELPER, JHONATAN L V72.31 PRIVATE INVESTIGATOR SURVEILLANCE EXAM, ROUTINE 02/26/2014 MADL POWER SHOVEL OPERATOR HELPER, JHONATAN L V76.2 CERVICAL CANCER SCREENING (PAP SMEAR) 02/26/2014 599.0 URINARY TRACT INFECTION 02/26/2014 599.70 HEMATURIA UNSPECIFIED 02/26/2014 786.2 COUGH 02/26/2014 V72.31 PRIVATE INVESTIGATOR SURVEILLANCE EXAM, ROUTINE 02/26/2014 V76.2 CERVICAL CANCER SCREENING (PAP SMEAR) 02/26/2014 CURRIE DO, AMELIA K 599.0 URINARY TRACT INFECTION 02/26/2014 CURRIE DO, AMELIA K 599.70 HEMATURIA UNSPECIFIED 02/26/2014 CURRIE DO, AMELIA K 786.2 COUGH 02/26/2014 CURRIE DO, AMELIA K V72.31 PRIVATE INVESTIGATOR SURVEILLANCE EXAM, ROUTINE 02/26/2014 CURRIE DO, AMELIA K V76.2 CERVICAL CANCER SCREENING (PAP SMEAR) 02/26/2014 CURRIE DO, AMELIA K 599.0 URINARY TRACT INFECTION 02/26/2014 CURRIE DO, AMELIA K 599.70 HEMATURIA UNSPECIFIED 02/26/2014 CURRIE DO, AMELIA K 786.2 COUGH 02/26/2014 CURRIE DO, AMELIA K V72.31 PRIVATE INVESTIGATOR SURVEILLANCE EXAM, ROUTINE 02/26/2014 CURRIE DO, AMELIA K V76.2 CERVICAL CANCER SCREENING (PAP SMEAR) 02/26/2014 MADL POWER SHOVEL OPERATOR HELPER, JHONATAN L 599.0 URINARY TRACT INFECTION 02/26/2014 MADL POWER SHOVEL OPERATOR HELPER, JHONATAN L 599.70 HEMATURIA UNSPECIFIED 02/26/2014 MADL POWER SHOVEL OPERATOR HELPER, JHONATNA L 786.2 COUGH 02/26/2014 MADL POWER SHOVEL OPERATOR HELPER, JHONATAN L V72.31 PRIVATE INVESTIGATOR SURVEILLANCE EXAM, ROUTINE 02/26/2014 MADL POWER SHOVEL OPERATOR HELPER, JHONATAN L V76.2 CERVICAL CANCER SCREENING (PAP SMEAR) 02/26/2014 MADL POWER SHOVEL OPERATOR HELPER, JHONATAN L 599.0 URINARY TRACT INFECTION 02/26/2014 MADL POWER SHOVEL OPERATOR HELPER, JHONATAN L 599.70 HEMATURIA UNSPECIFIED 02/26/2014 MADL POWER SHOVEL OPERATOR HELPER, JHONATAN L 786.2 COUGH 02/26/2014 MADL POWER SHOVEL OPERATOR HELPER, JHONATAN L V72.31 PRIVATE INVESTIGATOR SURVEILLANCE EXAM, ROUTINE 02/26/2014 MADL POWER SHOVEL OPERATOR HELPER, JHONATAN L V76.2 CERVICAL CANCER SCREENING (PAP SMEAR) 02/26/2014 MADL POWER SHOVEL OPERATOR HELPER, JHONATAN L 599.0 URINARY TRACT INFECTION 02/26/2014 MADL POWER SHOVEL OPERATOR HELPER, JHONATAN L 599.70 HEMATURIA UNSPECIFIED 02/26/2014 MADL POWER SHOVEL OPERATOR HELPER, JHONATAN L 786.2 COUGH 02/26/2014 MADL POWER SHOVEL OPERATOR HELPER, JHONATAN L V72.31 PRIVATE INVESTIGATOR SURVEILLANCE EXAM, ROUTINE 02/26/2014 MADL POWER SHOVEL OPERATOR HELPER, JHONATAN L V76.2 CERVICAL CANCER SCREENING (PAP SMEAR) 02/26/2014 CURRIE DO, AMELIA K 599.0 URINARY TRACT INFECTION 02/26/2014 CURRIE DO, AMELIA K 599.70 HEMATURIA UNSPECIFIED 02/26/2014 CURRIE DO, AMELIA K 786.2 COUGH 02/26/2014 CURRIE DO, AMELAI K V72.31 PRIVATE INVESTIGATOR SURVEILLANCE EXAM, ROUTINE 02/26/2014 CURRIE DO, AMELIA K V76.2 CERVICAL CANCER SCREENING (PAP SMEAR) 02/26/2014 MADL POWER SHOVEL OPERATOR HELPER, JHONATAN L 599.0 URINARY TRACT INFECTION 02/26/2014 MADL POWER SHOVEL OPERATOR HELPER, JHONATAN L 599.70 HEMATURIA UNSPECIFIED 02/26/2014 MADL POWER SHOVEL OPERATOR HELPER, JHONATAN L 786.2 COUGH 02/26/2014 MADL POWER SHOVEL OPERATOR HELPER, JHONATAN L V72.31 PRIVATE INVESTIGATOR SURVEILLANCE EXAM, ROUTINE 02/26/2014 MADL POWER SHOVEL OPERATOR HELPER, JHONATAN L V76.2 CERVICAL CANCER SCREENING (PAP SMEAR) 02/26/2014 MADL POWER SHOVEL OPERATOR HELPER, JHONATAN L 599.0 URINARY TRACT INFECTION 02/26/2014 MADL POWER SHOVEL OPERATOR HELPER, JHONATAN L 599.70 HEMATURIA UNSPECIFIED 02/26/2014 MADL POWER SHOVEL OPERATOR HELPER, JHONATAN L 786.2 COUGH 02/26/2014 MADL POWER SHOVEL OPERATOR HELPER, JHONATAN L V72.31 PRIVATE INVESTIGATOR SURVEILLANCE EXAM, ROUTINE 02/26/2014 MADL POWER SHOVEL OPERATOR HELPER, JHONATAN L V76.2 CERVICAL CANCER SCREENING (PAP SMEAR) 02/26/2014 MADL POWER SHOVEL OPERATOR HELPER, JHONATAN L 599.0 URINARY TRACT INFECTION 02/26/2014 MADL POWER SHOVEL OPERATOR HELPER, JHONATAN L 599.70 HEMATURIA UNSPECIFIED 02/26/2014 MADL POWER SHOVEL OPERATOR HELPER, JHONATAN L 786.2 COUGH 02/26/2014 MADL POWER SHOVEL OPERATOR HELPER, JHONATAN L V72.31 PRIVATE INVESTIGATOR SURVEILLANCE EXAM, ROUTINE 02/26/2014 MADL POWER SHOVEL OPERATOR HELPER, JHONATAN L V76.2 CERVICAL CANCER SCREENING (PAP SMEAR) 02/26/2014 CURRIE DO, AMELIA K 599.0 URINARY TRACT INFECTION 02/26/2014 CURRIE DO, AMELIA K 599.70 HEMATURIA UNSPECIFIED 02/26/2014 CURRIE DO, AMELIA K 786.2 COUGH 02/26/2014 CURRIE DO, AMELIA K V72.31 PRIVATE INVESTIGATOR SURVEILLANCE EXAM, ROUTINE 02/26/2014 CURRIE DO, AMELIA K V76.2 CERVICAL CANCER SCREENING (PAP SMEAR) 02/26/2014 MADL POWER SHOVEL OPERATOR HELPER, JHONATAN L 599.0 URINARY TRACT INFECTION 02/26/2014 MADL POWER SHOVEL OPERATOR HELPER, JHONATAN L 599.70 HEMATURIA UNSPECIFIED 02/26/2014 MADL POWER SHOVEL OPERATOR HELPER, JHONATAN L 786.2 COUGH 02/26/2014 MADL POWER SHOVEL OPERATOR HELPER, JHONATAN L V72.31 PRIVATE INVESTIGATOR SURVEILLANCE EXAM, ROUTINE 02/26/2014 MADL POWER SHOVEL OPERATOR HELPER, JHONATAN L V76.2 CERVICAL CANCER SCREENING (PAP SMEAR) 02/26/2014 MADL POWER SHOVEL OPERATOR HELPER, JHONATAN L 599.0 URINARY TRACT INFECTION 02/26/2014 MADL POWER SHOVEL OPERATOR HELPER, JHONATAN L 599.70 HEMATURIA UNSPECIFIED 02/26/2014 MADL POWER SHOVEL OPERATOR HELPER, JHONATAN L 786.2 COUGH 02/26/2014 MADL POWER SHOVEL OPERATOR HELPER, JHONATAN L V72.31 PRIVATE INVESTIGATOR SURVEILLANCE EXAM, ROUTINE 02/26/2014 MADL POWER SHOVEL OPERATOR HELPER, JHONATAN L V76.2 CERVICAL CANCER SCREENING (PAP SMEAR) 02/26/2014 MAVERICK POWER SHOVEL OPERATOR HELPER, ZACHARIAH R 599.0 URINARY TRACT INFECTION 02/26/2014 MAVERICK POWER SHOVEL OPERATOR HELPER, ZACHARIAH R 599.70 HEMATURIA UNSPECIFIED 02/26/2014 MAVERICK POWER SHOVEL OPERATOR HELPER, ZACHARIAH R 786.2 COUGH 02/26/2014 MAVERICK POWER SHOVEL OPERATOR HELPER, ZACHARIAH R V72.31 PRIVATE INVESTIGATOR SURVEILLANCE EXAM, ROUTINE 02/26/2014 MAVERICK POWER SHOVEL OPERATOR HELPER ZACHARIAH R V76.2 CERVICAL CANCER SCREENING (PAP SMEAR) 02/26/2014 MADL POWER SHOVEL OPERATOR HELPER, JHONATAN L 599.0 URINARY TRACT INFECTION 02/26/2014 MADL POWER SHOVEL OPERATOR HELPER, JHONATAN L 599.70 HEMATURIA UNSPECIFIED 02/26/2014 MADL POWER SHOVEL OPERATOR HELPER, JHONATAN L 786.2 COUGH 02/26/2014 MADL POWER SHOVEL OPERATOR HELPER, JHONATAN L V72.31 PRIVATE INVESTIGATOR SURVEILLANCE EXAM, ROUTINE 02/26/2014 MADL POWER SHOVEL OPERATOR HELPER, JHONATAN L V76.2 CERVICAL CANCER SCREENING (PAP SMEAR) 02/26/2014 MADL POWER SHOVEL OPERATOR HELPER, JHONATAN L 599.0 URINARY TRACT INFECTION 02/26/2014 MADL POWER SHOVEL OPERATOR HELPER, JHONATAN L 599.70 HEMATURIA UNSPECIFIED 02/26/2014 MADL POWER SHOVEL OPERATOR HELPER, JHONATAN L 786.2 COUGH 02/26/2014 MADL POWER SHOVEL OPERATOR HELPER, JHONATAN L V72.31 PRIVATE INVESTIGATOR SURVEILLANCE EXAM, ROUTINE 02/26/2014 MADL POWER SHOVEL OPERATOR HELPER, JHONATAN L V76.2 CERVICAL CANCER SCREENING (PAP SMEAR) 02/26/2014 MADL POWER SHOVEL OPERATOR HELPER, JHONATAN L 599.0 URINARY TRACT INFECTION 02/26/2014 MADL POWER SHOVEL OPERATOR HELPER, JHONATAN L 599.70 HEMATURIA UNSPECIFIED 02/26/2014 MADL POWER SHOVEL OPERATOR HELPER, JHONATAN L 786.2 COUGH 02/26/2014 MADL POWER SHOVEL OPERATOR HELPER, JHONATAN L V72.31 PRIVATE INVESTIGATOR SURVEILLANCE EXAM, ROUTINE 02/26/2014 MADL POWER SHOVEL OPERATOR HELPER, JHONATAN L V76.2 CERVICAL CANCER SCREENING (PAP SMEAR) 02/26/2014 MADL POWER SHOVEL OPERATOR HELPER, JHONATAN L 599.0 URINARY TRACT INFECTION 02/26/2014 MADL POWER SHOVEL OPERATOR HELPER, JHONATAN L 599.70 HEMATURIA UNSPECIFIED 02/26/2014 MADL POWER SHOVEL OPERATOR HELPER, JHONATAN L 786.2 COUGH 02/26/2014 MADL POWER SHOVEL OPERATOR HELPER, JHONATAN L V72.31 PRIVATE INVESTIGATOR SURVEILLANCE EXAM, ROUTINE 02/26/2014 MADL POWER SHOVEL OPERATOR HELPER, JHONATAN L V76.2 CERVICAL CANCER SCREENING (PAP SMEAR) 02/26/2014 MADL POWER SHOVEL OPERATOR HELPER, JHONATAN L 599.0 URINARY TRACT INFECTION 02/26/2014 MADL POWER SHOVEL OPERATOR HELPER, JHONAATN L 599.70 HEMATURIA UNSPECIFIED 02/26/2014 MADL POWER SHOVEL OPERATOR HELPER, JHONATAN L 786.2 COUGH 02/26/2014 MADL POWER SHOVEL OPERATOR HELPER, JHONATAN L V72.31 PRIVATE INVESTIGATOR SURVEILLANCE EXAM, ROUTINE 02/26/2014 MADL POWER SHOVEL OPERATOR HELPER, JHONATAN L V76.2 CERVICAL CANCER SCREENING (PAP SMEAR) 02/26/2014 MADL POWER SHOVEL OPERATOR HELPER, JHONATAN L 599.0 URINARY TRACT INFECTION 02/26/2014 MADL POWER SHOVEL OPERATOR HELPER, JHONATAN L 599.70 HEMATURIA UNSPECIFIED 02/26/2014 MADL POWER SHOVEL OPERATOR HELPER, JHONATAN L 786.2 COUGH 02/26/2014 MADL POWER SHOVEL OPERATOR HELPER, JHONATAN L V72.31 PRIVATE INVESTIGATOR SURVEILLANCE EXAM, ROUTINE 02/26/2014 MADL POWER SHOVEL OPERATOR HELPER, JHONATAN L V76.2 CERVICAL CANCER SCREENING (PAP SMEAR) 02/26/2014 CURRIE DO, AMELIA K 599.0 URINARY TRACT INFECTION 02/26/2014 CURRIE DO, AMELIA K 599.70 HEMATURIA UNSPECIFIED 02/26/2014 CURRIE DO, AMELIA K 786.2 COUGH 02/26/2014 CURRIE DO, AMELIA K V72.31 PRIVATE INVESTIGATOR SURVEILLANCE EXAM, ROUTINE 02/26/2014 CURRIE DO, AMELIA K V76.2 CERVICAL CANCER SCREENING (PAP SMEAR) 02/26/2014 MADL POWER SHOVEL OPERATOR HELPER, JHONATAN L 599.0 URINARY TRACT INFECTION 02/26/2014 MADL POWER SHOVEL OPERATOR HELPER, JHONATAN L 599.70 HEMATURIA UNSPECIFIED 02/26/2014 MADL POWER SHOVEL OPERATOR HELPER, JHONATAN L 786.2 COUGH 02/26/2014 MADL POWER SHOVEL OPERATOR HELPER, JHONATAN L V72.31 PRIVATE INVESTIGATOR SURVEILLANCE EXAM, ROUTINE 02/26/2014 MADL POWER SHOVEL OPERATOR HELPER, JHONATAN L V76.2 CERVICAL CANCER SCREENING (PAP SMEAR) 02/26/2014 BLANCHE POWER SHOVEL OPERATOR HELPER, BHARAT S 599.0 URINARY TRACT INFECTION 02/26/2014 BLANCHE POWER SHOVEL OPERATOR HELPER, BHARAT S 599.70 HEMATURIA UNSPECIFIED 02/26/2014 BLANCHE POWER SHOVEL OPERATOR HELPER, BHARAT S 786.2 COUGH 02/26/2014 BLANCHE POWER SHOVEL OPERATOR HELPER, BHARAT S V72.31 PRIVATE INVESTIGATOR SURVEILLANCE EXAM, ROUTINE 02/26/2014 BLANCHE POWER SHOVEL OPERATOR HELPER, BHARAT S V76.2 CERVICAL CANCER SCREENING (PAP SMEAR) 02/26/2014 599.0 URINARY TRACT INFECTION 02/26/2014 599.70 HEMATURIA UNSPECIFIED 02/26/2014 786.2 COUGH 02/26/2014 V72.31 PRIVATE INVESTIGATOR SURVEILLANCE EXAM, ROUTINE 02/26/2014 V76.2 CERVICAL CANCER SCREENING (PAP SMEAR) 02/26/2014 MAVERICK POWER SHOVEL OPERATOR HELPER, ZACHARIAH R 599.0 URINARY TRACT INFECTION 02/26/2014 MAVERICK POWER SHOVEL OPERATOR HELPER, ZACHARIAH R 599.70 HEMATURIA UNSPECIFIED 02/26/2014 MAVERICK POWER SHOVEL OPERATOR HELPER, ZACHARIAH R 786.2 COUGH 02/26/2014 MAVERICK POWER SHOVEL OPERATOR HELPER, ZACHARIAH R V72.31 PRIVATE INVESTIGATOR SURVEILLANCE EXAM, ROUTINE 02/26/2014 MAVERICK POWER SHOVEL OPERATOR HELPER, ZACHARIAH R V76.2 CERVICAL CANCER SCREENING (PAP SMEAR) 02/26/2014 ALMONTE DDS, SAE 599.0 URINARY TRACT INFECTION 02/26/2014 ALMONTE DDS, SAE 599.70 HEMATURIA UNSPECIFIED 02/26/2014 ALMONTE DDS, SAE 786.2 COUGH 02/26/2014 ALMONTE DDS, SAE V72.31 PRIVATE INVESTIGATOR SURVEILLANCE EXAM, ROUTINE 02/26/2014 ALMONTE DDS, SAE V76.2 [...] OF NASAL CAVITY AND SINUSES 05/16/2014 MADL POWER SHOVEL OPERATOR HELPER, JHONATAN L 478.19 OTHER DISEASES OF NASAL CAVITY AND SINUSES 05/16/2014 AMELIA CURRIE DO K 478.19 OTHER DISEASES OF NASAL CAVITY AND SINUSES 05/16/2014 MADL POWER SHOVEL OPERATOR HELPER, JHONATAN L 478.19 OTHER DISEASES OF NASAL CAVITY AND SINUSES 05/16/2014 MADL POWER SHOVEL OPERATOR HELPER, JHONATAN L 478.19 OTHER DISEASES OF NASAL CAVITY AND SINUSES 05/16/2014 MAVERICK FUCHS ZACHARIAH R 478.19 OTHER DISEASES OF NASAL CAVITY AND SINUSES 05/16/2014 MADL POWER SHOVEL OPERATOR HELPER, JHONATAN L 478.19 OTHER DISEASES OF NASAL CAVITY AND SINUSES 05/16/2014 MADL POWER SHOVEL OPERATOR HELPER, JHONATAN L 478.19 OTHER DISEASES OF NASAL CAVITY AND SINUSES 05/16/2014 MADL POWER SHOVEL OPERATOR HELPER, JHONATAN L 478.19 OTHER DISEASES OF NASAL CAVITY AND SINUSES 05/16/2014 MADL POWER SHOVEL OPERATOR HELPER, JHONATNA L 478.19 OTHER DISEASES OF NASAL CAVITY AND SINUSES 05/16/2014 MADL POWER SHOVEL OPERATOR HELPER, JHONATAN L 478.19 OTHER DISEASES OF NASAL CAVITY AND SINUSES 05/16/2014 MADL POWER SHOVEL OPERATOR HELPER, JHONATAN L 478.19 OTHER DISEASES OF NASAL CAVITY AND SINUSES 05/16/2014 AMELIA CURRIE DO K 478.19 OTHER DISEASES OF NASAL CAVITY AND SINUSES 05/16/2014 MADL POWER SHOVEL OPERATOR HELPER, JHONATAN L 478.19 OTHER DISEASES OF NASAL CAVITY AND SINUSES 05/16/2014 BHARAT MANCIA APRN S 478.19 OTHER DISEASES OF NASAL CAVITY AND SINUSES 05/16/2014 478.19 OTHER DISEASES OF NASAL CAVITY AND SINUSES 05/16/2014 MAVERICK FUCHS, ZACHARIAH R 478.19 OTHER DISEASES OF NASAL CAVITY AND SINUSES 05/16/2014 SAE ALMONTE DDS 478.19 OTHER DISEASES OF NASAL CAVITY AND SINUSES 07/22/2014 MADL POWER SHOVEL OPERATOR HELPER, JHONATAN L V04.81 FLU SHOT 07/22/2014 MAVERICK FUCHS ZACHARIAH R V04.81 FLU SHOT 07/22/2014 MADL POWER SHOVEL OPERATOR HELPER, JHONATAN L V04.81 FLU SHOT 07/22/2014 MADL POWER SHOVEL OPERATOR HELPER, JHONATAN L V04.81 FLU SHOT 07/22/2014 MADL POWER SHOVEL OPERATOR HELPER, JHONATAN L V04.81 FLU SHOT 07/22/2014 MADL POWER SHOVEL OPERATOR HELPER, JHONATAN L V04.81 FLU SHOT 07/22/2014 MADL POWER SHOVEL OPERATOR HELPER, JHONATAN L V04.81 FLU SHOT 07/22/2014 MADL POWER SHOVEL OPERATOR HELPER, JHONATAN L V04.81 FLU SHOT 07/22/2014 CURRIE AMELIA SCHREIBER K V04.81 FLU SHOT 07/22/2014 MADL POWER SHOVEL OPERATOR HELPER, JHONATAN L V04.81 FLU SHOT 07/22/2014 BHARAT [...] IN JOINT SITE UNSPECIFIED 12/02/2014 SUZY GRANADOS, SEA 719.40 PAIN IN JOINT SITE UNSPECIFIED 12/20/2014 BHARAT MANCIA APRN S 465.9 UPPER RESPIRATORY INFECTION 12/20/2014 465.9 UPPER RESPIRATORY INFECTION 12/20/2014 ZACHARIAH TEMPLE APRN R 465.9 UPPER RESPIRATORY INFECTION 12/20/2014 SAE ALMONTE DDS 465.9 UPPER RESPIRATORY INFECTION 01/09/2015 BHARTA MANCIA APRN S 788.31 URGE INCONTINENCE 01/09/2015 [...] HUNT MD Ot 240.9 02/18/2015 MARCI NASH POWER SHOVEL OPERATOR HELPER Ot V65.49 02/18/2015 MARCI NASH POWER SHOVEL OPERATOR HELPER Ot V72.31 02/18/2015 MARCI NASH POWER SHOVEL OPERATOR HELPER Ot V73.81 02/18/2015 MARCI NASH POWER SHOVEL OPERATOR HELPER Ot V76.12 02/18/2015 MARCI NASH POWER SHOVEL OPERATOR HELPER Ot V76.2 02/18/2015 MARCI NASH POWER SHOVEL OPERATOR HELPER Ot V76.51 03/28/2015 ELANA CHAVIS, LATRELL Davies [...] HUNT MD Ot 240.9 06/25/2015 MARCI NASH POWER SHOVEL OPERATOR HELPER Ot V65.49 06/25/2015 MARCI NASH POWER SHOVEL OPERATOR HELPER Ot V72.31 06/25/2015 MARCI NASH POWER SHOVEL OPERATOR HELPER Ot V73.81 06/25/2015 MARCI NASH POWER SHOVEL OPERATOR HELPER Ot V76.12 06/25/2015 MARCI NASH POWER SHOVEL OPERATOR HELPER Ot V76.2 06/25/2015 MARCI NASH POWER SHOVEL OPERATOR HELPER Ot V76.51 06/25/2015 ELANA CHAVIS, LATRELL Davies [...] HUNT MD Ot 240.9 09/18/2015 MARCI NASH POWER SHOVEL OPERATOR HELPER Ot V65.49 09/18/2015 KATLIN NASHIDI Ilda POWER SHOVEL OPERATOR HELPER Ot V72.31 09/18/2015 CHARITY MARCI A POWER SHOVEL OPERATOR HELPER Ot V73.81 09/18/2015 MARCI NASH POWER SHOVEL OPERATOR HELPER Ot V76.12 09/18/2015 MARCI NASH POWER SHOVEL OPERATOR HELPER Ot V76.2 09/18/2015 MARCI NASH POWER SHOVEL OPERATOR HELPER Ot V76.51 09/18/2015 ELANA CHAVIS, LATRELL Davies [...] HAWKINS MD Ot 496 09/18/2015 COREY DIAL POWER SHOVEL OPERATOR HELPER Ot S50.12XA CONTUSION OF LEFT FOREARM, INITIAL ENCOU 09/18/2015 COREY DIAL POWER SHOVEL OPERATOR HELPER Ot W22.8XXA STRIKING AGAINST OR STRUCK BY OTHER OBJE 09/18/2015 COREY DIAL POWER SHOVEL OPERATOR HELPER Ot Y99.8 OTHER EXTERNAL CAUSE STATUS 04/29/2016 [...] Ot 240.9 GOITER NOS 04/29/2016 MARCI NASH POWER SHOVEL OPERATOR HELPER Ot V65.49 OTHER SPECIFIED COUNSELING 04/29/2016 MARCI NASH POWER SHOVEL OPERATOR HELPER Ot V72.31 ROUTINE GYNECOLOGICAL EXAMINATION 04/29/2016 MARCI NASH POWER SHOVEL OPERATOR HELPER Ot V73.81 SPECIAL SCREENING EXAMINATION, HUMAN PAP 04/29/2016 MARCI NASH POWER SHOVEL OPERATOR HELPER Ot V76.12 OTH SCREEN MAMMO-MALIGN NEOPLASM OF [place] 04/29/2016 MARCI NASH POWER SHOVEL OPERATOR HELPER Ot V76.2 SCREEN MAL NEOP-CERVIX 04/29/2016 MARCI NASH POWER SHOVEL OPERATOR HELPER Ot V76.51 SCREEN MAL NEOP-COLON 04/29/2016 LATRELL [...] CHR AIRWAY OBSTRUCT NEC 04/29/2016 BHARAT MANCIA NREMT Ot Z12.31 ENCNTR SCREEN MAMMOGRAM FOR MALIGNANT NE 04/30/2016 BHARAT MANCIA NREMT Ot Z12.31 ENCNTR SCREEN MAMMOGRAM FOR MALIGNANT NE 05/05/2016 BHARAT MANCIA NREMT Ot Z12.31 ENCNTR SCREEN MAMMOGRAM FOR MALIGNANT NE 06/04/2016 BHARAT MANCIA NREMT Ot Z12.31 ENCNTR SCREEN MAMMOGRAM FOR MALIGNANT NE 06/29/2016 BHARAT MANCIA NREMT Ot Z12.31 ENCNTR SCREEN MAMMOGRAM FOR MALIGNANT [...] Ot 240.9 GOITER NOS 11/30/2016 MARCI NASH POWER SHOVEL OPERATOR HELPER Ot V65.49 OTHER SPECIFIED COUNSELING 11/30/2016 MARCI NASH POWER SHOVEL OPERATOR HELPER Ot V72.31 ROUTINE GYNECOLOGICAL EXAMINATION 11/30/2016 MARCI NASH POWER SHOVEL OPERATOR HELPER Ot V73.81 SPECIAL SCREENING EXAMINATION, HUMAN PAP 11/30/2016 MARCI NASH POWER SHOVEL OPERATOR HELPER Ot V76.12 OTH SCREEN MAMMO-MALIGN NEOPLASM OF [place] 11/30/2016 MARCI NASH POWER SHOVEL OPERATOR HELPER Ot V76.2 SCREEN MAL NEOP-CERVIX 11/30/2016 MARCI NASH POWER SHOVEL OPERATOR HELPER Ot V76.51 SCREEN MAL NEOP-COLON 11/30/2016 ELANA [...] MD Ot I25.10 ATHSCL HEART DISEASE OF [place] CORONARY 11/30/2016 DENNYS LEWIS MD, Ot J06.9 ACUTE UPPER RESPIRATORY INFECTION, UNSPE 11/30/2016 DENNYS LEWIS MD, Ot J44.9 CHRONIC OBSTRUCTIVE PULMONARY DISEASE, U 11/30/2016 DENNYS LEWIS MD, Ot R05 COUGH 11/30/2016 DENNYS LEWIS MD Ot Z79.01 MCC (CURRENT) USE OF ANTICOAGULANT 11/30/2016 DENNYS LEWIS MD Ot Z79.82 MCC (CURRENT) USE OF ASPIRIN 11/30/2016 DENNYS LEWIS [...] Ot 240.9 GOITER NOS 11/30/2016 MARCI NASH POWER SHOVEL OPERATOR HELPER Ot V65.49 OTHER SPECIFIED COUNSELING 11/30/2016 MARCI NASH POWER SHOVEL OPERATOR HELPER Ot V72.31 ROUTINE GYNECOLOGICAL EXAMINATION 11/30/2016 MARCI NASH POWER SHOVEL OPERATOR HELPER Ot V73.81 SPECIAL SCREENING EXAMINATION, HUMAN PAP 11/30/2016 MARCI NASH POWER SHOVEL OPERATOR HELPER Ot V76.12 OTH SCREEN MAMMO-MALIGN NEOPLASM OF [place] 11/30/2016 MARCI NASH POWER SHOVEL OPERATOR HELPER Ot V76.2 SCREEN MAL NEOP-CERVIX 11/30/2016 MARCI NASH POWER SHOVEL OPERATOR HELPER Ot V76.51 SCREEN MAL NEOP-COLON 11/30/2016 ELANA [...] CHR AIRWAY OBSTRUCT NEC 11/30/2016 BHARAT MANCIA [facility] Ot Z12.31 ENCNTR SCREEN MAMMOGRAM FOR MALIGNANT NE 12/02/2016 DENNYS LEWIS MD Ot I25.10 ATHSCL HEART DISEASE OF [place] CORONARY 12/02/2016 DENNYS LEWIS MD Ot J06.9 ACUTE UPPER RESPIRATORY INFECTION, UNSPE 12/02/2016 DENNYS LEWIS MD Ot J44.9 CHRONIC OBSTRUCTIVE PULMONARY DISEASE, U 12/02/2016 DENNYS LEWIS MD Ot R05 COUGH 12/02/2016 DENNYS LEWIS MD Ot Z79.01 MCC (CURRENT) USE OF ANTICOAGULANT 12/02/2016 DENNYS LEWIS MD Ot Z79.82 MCC (CURRENT) USE OF ASPIRIN 12/02/2016 DENNYS LEWIS MD Ot Z95.1 PRESENCE OF AORTOCORONARY BYPASS GRAFT 12/02/2016 DENNYS LEWIS MD Ot Z95.2 PRESENCE OF PROSTHETIC HEART VALVE 12/02/2016 DENNYS LEWIS MD Ot I25.10 ATHSCL HEART DISEASE OF [place] CORONARY 12/02/2016 DENNYS LEWIS MD Ot J06.9 ACUTE UPPER RESPIRATORY INFECTION, UNSPE 12/02/2016 DENNYS LEWIS MD, Ot J44.9 CHRONIC OBSTRUCTIVE PULMONARY DISEASE, U 12/02/2016 DENNYS LEWIS MD Ot R05 COUGH 12/02/2016 DENNYS LEWIS MD Ot Z79.01 ADMINISTRATIVE SUPPORT TECHNICIAN (CURRENT) USE OF ANTICOAGULANT 12/02/2016 DENNYS LEWIS MD Ot Z79.82 MCC (CURRENT) USE OF ASPIRIN 12/02/2016 DENNYS LEWIS [...] STRUCTU 01/16/2017 MIHAI ROBERTS MD Ot Z79.01 ADMINISTRATIVE SUPPORT TECHNICIAN (CURRENT) USE OF ANTICOAGULANT 01/16/2017 MIHAI ROBERTS MD Ot Z79.82 MCC (CURRENT) USE OF ASPIRIN 01/16/2017 MIHAI ROBERTS MD Ot Z79.899 OTHER MCC (CURRENT) DRUG THERAPY 01/16/2017 MIHAI ROBERTS MD [...] STRUCTU 01/17/2017 MIHAI ROBERTS MD Ot Z79.01 MCC (CURRENT) USE OF ANTICOAGULANT 01/17/2017 MIHAI ROBERTS MD Ot Z79.82 MCC (CURRENT) USE OF ASPIRIN 01/17/2017 MIHAI ROBERTS MD Ot Z79.899 OTHER ADMINISTRATIVE SUPPORT TECHNICIAN (CURRENT) DRUG THERAPY 01/17/2017 MIHAI ROBERTS MD Ot Z95.1 PRESENCE OF AORTOCORONARY BYPASS GRAFT 01/17/2017 MIHAI ROBERTS MD Ot Z95.2 PRESENCE OF PROSTHETIC HEART VALVE 02/07/2017 LATRELL HAWKINS MD Ot I25.10 ATHSCL HEART DISEASE OF [place] CORONARY 02/17/2017 LATRELL HAWKINS MD Ot I25.10 ATHSCL HEART DISEASE OF [place] CORONARY 03/07/2017 LATRELL HAWKINS MD Ot I25.10 ATHSCL HEART DISEASE OF [place] CORONARY 03/08/2017 LATRELL HAWKINS MD Ot I25.10 ATHSCL HEART DISEASE OF [place] CORONARY 03/18/2017 LATRELL HAWKINS MD Ot E04.1 [...] MD, Ot I25.10 ATHSCL HEART DISEASE OF [place] CORONARY 06/20/2017 EVELINE PENG MD Ot K02.9 DENTAL CARIES, UNSPECIFIED 06/20/2017 EVELINE PENG MD Ot K08.89 OTHER SPECIFIED DISORDERS OF TEETH AND S 06/20/2017 EVELINE PENG MD Ot K21.9 GASTRO-ESOPHAGEAL REFLUX DISEASE WITHOUT 06/20/2017 EVELINE PENG MD Ot M06.9 RHEUMATOID ARTHRITIS, UNSPECIFIED 06/20/2017 EVELINE PENG MD Ot Z79.01 ADMINISTRATIVE SUPPORT TECHNICIAN (CURRENT) USE OF ANTICOAGULANT 06/20/2017 EVELINE PENG MD Ot Z79.82 ADMINISTRATIVE SUPPORT TECHNICIAN (CURRENT) USE OF ASPIRIN 06/20/2017 EVELINE PENG [...] MD Ot I25.10 ATHSCL HEART DISEASE OF [place] CORONARY 06/22/2017 EVELINE PENG MD Ot K02.9 [...] MD Ot I25.10 ATHSCL HEART DISEASE OF [place] CORONARY 06/22/2017 EVELINE PENG MD Ot K02.9 [...] MD, Ot I25.10 ATHSCL HEART DISEASE OF [place] CORONARY 06/22/2017 EVELINE PENG MD Ot K02.9 DENTAL CARIES, UNSPECIFIED 06/22/2017 EVELINE PENG MD Ot K08.89 OTHER SPECIFIED DISORDERS OF TEETH AND S 06/22/2017 EVELINE PENG MD Ot K21.9 GASTRO-ESOPHAGEAL REFLUX DISEASE WITHOUT 06/22/2017 EVELINE PENG MD Ot M06.9 RHEUMATOID ARTHRITIS, UNSPECIFIED 06/22/2017 EVELINE PENG MD Ot Z79.01 ADMINISTRATIVE SUPPORT TECHNICIAN (CURRENT) USE OF ANTICOAGULANT 06/22/2017 EVELINE PENG MD Ot Z79.82 MCC (CURRENT) USE OF ASPIRIN 06/22/2017 EVELINE PENG [...] MD Ot I25.10 ATHSCL HEART DISEASE OF [place] CORONARY 06/26/2017 EVELINE PENG MD Ot K02.9 DENTAL CARIES, UNSPECIFIED 06/26/2017 EVELINE PENG MD Ot K08.89 OTHER SPECIFIED DISORDERS OF TEETH AND S 06/26/2017 EVELINE PENG MD Ot K21.9 GASTRO-ESOPHAGEAL REFLUX DISEASE WITHOUT 06/26/2017 EVELINE PENG MD Ot M06.9 RHEUMATOID ARTHRITIS, UNSPECIFIED 06/26/2017 EVELINE PENG MD Ot Z79.01 MCC (CURRENT) USE OF ANTICOAGULANT 06/26/2017 EVELINE PENG MD Ot Z79.82 ADMINISTRATIVE SUPPORT TECHNICIAN (CURRENT) USE OF ASPIRIN 06/26/2017 EVELINE PENG [...] APRN Ot I25.10 ATHSCL HEART DISEASE OF [place] CORONARY 07/29/2017 COREY DIAL APRN Ot J44.9 CHRONIC OBSTRUCTIVE PULMONARY DISEASE, U 07/29/2017 COREY DIAL APRN Ot K02.9 DENTAL CARIES, UNSPECIFIED 07/29/2017 COREY DIAL APRN Ot K21.9 GASTRO-ESOPHAGEAL REFLUX DISEASE WITHOUT 07/29/2017 COREY DIAL APRN Ot M06.9 RHEUMATOID ARTHRITIS, UNSPECIFIED 07/29/2017 COREY DIAL APRN Ot R68.84 JAW PAIN 07/29/2017 COREY DIAL APRN Ot Z79.01 ADMINISTRATIVE SUPPORT TECHNICIAN (CURRENT) USE OF ANTICOAGULANT 07/29/2017 COREY DIAL APRN Ot Z79.82 ADMINISTRATIVE SUPPORT TECHNICIAN (CURRENT) USE OF ASPIRIN 07/29/2017 COREY DIAL [...] DIAL APRN Ot Z98.51 TUBAL LIGATION STATUS 01/22/2018 EVELINE PENG MD Ot I10 ESSENTIAL (PRIMARY) HYPERTENSION 01/22/2018 EVELINE PENG MD Ot I25.10 ATHSCL HEART DISEASE OF [place] CORONARY 01/22/2018 EVELINE PENG MD, Ot J44.9 CHRONIC OBSTRUCTIVE PULMONARY DISEASE, U 01/22/2018 EVELINE PENG MD, Ot K21.9 GASTRO-ESOPHAGEAL REFLUX DISEASE WITHOUT 01/22/2018 EVELINE PENG MD, Ot M06.9 RHEUMATOID ARTHRITIS, UNSPECIFIED 01/22/2018 EVELINE PEGN MD Ot N39.0 URINARY TRACT INFECTION, SITE NOT SPECIF 01/22/2018 EVELINE PENG MD, Ot R31.9 HEMATURIA, UNSPECIFIED 01/22/2018 EVELINE PENG MD Ot Z79.01 MCC (CURRENT) USE OF ANTICOAGULANT 01/22/2018 EVELINE PENG MD Ot Z79.82 ADMINISTRATIVE SUPPORT TECHNICIAN (CURRENT) USE OF ASPIRIN 01/22/2018 EVELINE PENG [...] Ot 240.9 GOITER NOS 01/25/2018 MARCI NASH POWER SHOVEL OPERATOR HELPER Ot V65.49 OTHER SPECIFIED COUNSELING 01/25/2018 MARCI NASH POWER SHOVEL OPERATOR HELPER Ot V72.31 ROUTINE GYNECOLOGICAL EXAMINATION 01/25/2018 CHARITYMARCI POWER SHOVEL OPERATOR HELPER Ot V73.81 SPECIAL SCREENING EXAMINATION, HUMAN PAP 01/25/2018 MARCI NASH POWER SHOVEL OPERATOR HELPER Ot V76.12 OTH SCREEN MAMMO-MALIGN NEOPLASM OF [place] 01/25/2018 CHARITYKATLINMARCI Ilda POWER SHOVEL OPERATOR HELPER Ot V76.2 SCREEN MAL NEOP-CERVIX 01/25/2018 CHARITYKATLINMARCI A POWER SHOVEL OPERATOR HELPER Ot V76.51 SCREEN MAL NEOP-COLON 01/25/2018 LATRELL HAWKINS MD Ot 401.9 HYPERTENSION NOS 01/25/2018 LATRELL HAWKINS MD Ot 414.9 CHR ISCHEMIC HRT DIS NOS 01/25/2018 LATRELL HAWKINS MD Ot 416.8 CHR PULMON HEART DIS NEC 01/25/2018 LATRELL HAWKINS MD Ot 424.1 AORTIC VALVE DISORDER 01/25/2018 LATRELL HAWKINS MD Ot 429.3 CARDIOMEGALY 01/25/2018 ALTRELL HAWKINS MD Ot 785.1 PALPITATIONS 01/25/2018 LATRELL HAWKINS MD Ot 401.9 HYPERTENSION NOS 01/25/2018 LATRELL HAWKINS MD Ot 414.00 CORON ATHEROSCLER NOS TYPE VESSEL, NATIV 01/25/2018 LATRELL HAWKINS MD Ot 424.0 MITRAL VALVE DISORDER 01/25/2018 LATRELL HAWKINS MD Ot 496 CHR AIRWAY OBSTRUCT NEC 01/25/2018 BHARAT MANCIA Ot Z12.31 ENCNTR SCREEN MAMMOGRAM FOR MALIGNANT NE 01/25/2018 LATRELL HAWKINS MD Ot I25.10 ATHSCL HEART DISEASE OF [place] CORONARY 01/25/2018 LATRELL HAWKINS MD Ot E04.1 NONTOXIC SINGLE THYROID NODULE 01/26/2018 BHARAT MANCIA Ot Z12.31 ENCNTR SCREEN MAMMOGRAM FOR MALIGNANT NE 02/11/2018 MARKOS RDZ DO Ot I10 ESSENTIAL (PRIMARY) HYPERTENSION 02/11/2018 KAJAL MARKOS Monk Ot I25.10 ATHSCL HEART DISEASE OF [place] CORONARY 02/11/2018 KAJAL MARKOS Lacho Ot J44.9 CHRONIC OBSTRUCTIVE PULMONARY DISEASE, U 02/11/2018 KAJAL MARKOS Monk Ot K02.9 DENTAL CARIES, UNSPECIFIED 02/11/2018 KAJAL MARKOS Monk Ot K08.89 OTHER SPECIFIED DISORDERS OF TEETH AND S 02/11/2018 KAJAL MARKOS Lacho Ot K21.9 GASTRO-ESOPHAGEAL REFLUX DISEASE WITHOUT 02/11/2018 KAJAL MARKOS Monk Ot L03.211 CELLULITIS OF FACE 02/11/2018 KAJAL MARKOS Lacho Ot M06.9 RHEUMATOID ARTHRITIS, UNSPECIFIED 02/11/2018 KAJAL MARKOS Monk Ot Z79.01 MCC (CURRENT) USE OF ANTICOAGULANT 02/11/2018 AKJAL MARKOS Lacho Ot Z79.82 ADMINISTRATIVE SUPPORT TECHNICIAN (CURRENT) USE OF ASPIRIN 02/11/2018 KAJAL MARKOS Monk Ot Z87.891 PERSONAL HISTORY OF NICOTINE DEPENDENCE 02/11/2018 KAJAL MARKOS Monk Ot Z88.0 ALLERGY STATUS TO PENICILLIN 02/11/2018 KAJAL MARKOS Lacho Ot Z88.1 ALLERGY STATUS TO OTHER ANTIBIOTIC AGENT 02/11/2018 KAJAL MARKOS Lacho Ot Z88.6 ALLERGY STATUS TO ANALGESIC AGENT STATUS 02/11/2018 KAJAL MARKOS Monk Ot Z90.49 ACQUIRED ABSENCE OF OTHER SPECIFIED PART 02/11/2018 KAJAL MARKOS Monk Ot Z91.041 RADIOGRAPHIC DYE ALLERGY STATUS 02/11/2018 KAJAL MARKOS Lacho Ot Z95.2 PRESENCE OF PROSTHETIC HEART VALVE 02/11/2018 KAJAL MARKOS Lacho Ot Z95.5 PRESENCE OF CORONARY ANGIOPLASTY IMPLANT 02/11/2018 KAJAL MARKOS Monk Ot Z98.51 TUBAL LIGATION STATUS 02/11/2018 Ot 553.3 DIAPHRAGMATIC HERNIA 02/11/2018 Ot 786.05 SHORTNESS OF BREATH 02/11/2018 Ot 786.2 COUGH 02/11/2018 Ot 793.11 SOLITARY PULMONARY NODULE 02/11/2018 Ot 396.3 MITRAL/ AORTIC MARGARITO INSUFF 02/11/2018 Ot 397.0 TRICUSPID VALVE DISEASE 02/11/2018 Ot 414.00 CORON ATHEROSCLER NOS TYPE VESSEL, NATIV 02/11/2018 Ot 429.3 CARDIOMEGALY 02/11/2018 Ot 786.09 RESPIRATORY ABNORM NEC 02/11/2018 Ot V43.3 HEART VALVE REPLAC NEC 02/11/2018 Ot V76.12 OTH SCREEN MAMMO-MALIGN NEOPLASM OF [place] 02/11/2018 MARILEE CHAVIS, ALLI Shirley Ot 793.11 SOLITARY PULMONARY NODULE 02/11/2018 ALLI HUNT MD Ot 240.9 GOITER NOS 02/11/2018 MARCI NASH POWER SHOVEL OPERATOR HELPER Ot V65.49 OTHER SPECIFIED COUNSELING 02/11/2018 MARCI NASH POWER SHOVEL OPERATOR HELPER Ot V72.31 ROUTINE GYNECOLOGICAL EXAMINATION 02/11/2018 MARCI NASH POWER SHOVEL OPERATOR HELPER Ot V73.81 SPECIAL SCREENING EXAMINATION, HUMAN PAP 02/11/2018 MARCI NASH POWER SHOVEL OPERATOR HELPER Ot V76.12 OTH SCREEN MAMMO-MALIGN NEOPLASM OF [place] 02/11/2018 MARCI NASH POWER SHOVEL OPERATOR HELPER Ot V76.2 SCREEN MAL NEOP-CERVIX 02/11/2018 MARCI NASH POWER SHOVEL OPERATOR HELPER Ot V76.51 SCREEN MAL NEOP-COLON 02/11/2018 LATRELL HAWKINS MD Ot 401.9 HYPERTENSION NOS 02/11/2018 LATRELL HAWKINS MD Ot 414.9 CHR ISCHEMIC HRT DIS NOS 02/11/2018 LATRELL HAWKINS MD Ot 416.8 CHR PULMON HEART DIS NEC 02/11/2018 LATRELL HAWKINS MD Ot 424.1 AORTIC VALVE DISORDER 02/11/2018 LATRELL HAWKINS MD Ot 429.3 CARDIOMEGALY 02/11/2018 LATRELL HAWKINS MD Ot 785.1 PALPITATIONS 02/11/2018 LATRELL HAWKINS MD Ot 401.9 HYPERTENSION NOS 02/11/2018 LATRELL HAWKINS MD Ot 414.00 CORON ATHEROSCLER NOS TYPE VESSEL, NATIV 02/11/2018 LATRELL HAWKINS MD Ot 424.0 MITRAL VALVE DISORDER 02/11/2018 LATRELL HAWKINS MD Ot 496 CHR AIRWAY OBSTRUCT NEC 02/11/2018 BHARAT MANCIA Ot Z12.31 ENCNTR SCREEN MAMMOGRAM FOR MALIGNANT NE 02/11/2018 LATRELL HAWKINS MD Ot I25.10 ATHSCL HEART DISEASE OF [place] CORONARY 02/11/2018 LATRELL HAWKINS MD Ot E04.1 NONTOXIC SINGLE THYROID NODULE 02/13/2018 GENARO RDZ DOA Lacho Ot I10 ESSENTIAL (PRIMARY) HYPERTENSION 02/13/2018 KAJAL DO MARKOS K Ot I25.10 ATHSCL HEART DISEASE OF [place] CORONARY 02/13/2018 KAJAL DO MARKOS Lacho Ot J44.9 CHRONIC OBSTRUCTIVE PULMONARY DISEASE, U 02/13/2018 KAJAL DO MARKOS Lacho Ot K02.9 DENTAL CARIES, UNSPECIFIED 02/13/2018 KAJAL DO MARKOS K Ot K08.89 OTHER SPECIFIED DISORDERS OF TEETH AND S 02/13/2018 KAJAL GENARO SCHREIBERA Lacho Ot K21.9 GASTRO-ESOPHAGEAL REFLUX DISEASE WITHOUT 02/13/2018 KAJAL GENARO SCHREIBERA Lacho Ot L03.211 CELLULITIS OF FACE 02/13/2018 KAJAL DO MARKOS Lacho Ot M06.9 RHEUMATOID ARTHRITIS, UNSPECIFIED 02/13/2018 KAJAL DO MARKOS K Ot Z79.01 ADMINISTRATIVE SUPPORT TECHNICIAN (CURRENT) USE OF ANTICOAGULANT 02/13/2018 KAJAL GENARO SCHREIBERA K Ot Z79.82 MCC (CURRENT) USE OF ASPIRIN 02/13/2018 KAJAL GENARO SCHREIBERA K Ot Z87.891 PERSONAL HISTORY OF NICOTINE DEPENDENCE 02/13/2018 GENARO RDZ DOA Lacho Ot Z88.0 ALLERGY STATUS TO PENICILLIN 02/13/2018 GENARO RDZ DOA K Ot Z88.1 ALLERGY STATUS TO OTHER ANTIBIOTIC AGENT 02/13/2018 KAJAL GENARO SCHREIBERA Lacho Ot Z88.6 ALLERGY STATUS TO ANALGESIC AGENT STATUS 02/13/2018 KAJAL GENARO SCHREIBERA Lacho Ot Z90.49 ACQUIRED ABSENCE OF OTHER SPECIFIED PART 02/13/2018 GENARO RDZ DOA K Ot Z91.041 RADIOGRAPHIC DYE ALLERGY STATUS 02/13/2018 GENARO RDZ DOA Lacho Ot Z95.2 PRESENCE OF PROSTHETIC HEART VALVE 02/13/2018 GENARO RDZ DOA Lacho Ot Z95.5 PRESENCE OF CORONARY ANGIOPLASTY IMPLANT 02/13/2018 GENARO RDZ DOA K Ot Z98.51 TUBAL LIGATION STATUS Procedures Code [place] [address] INR (IN HOUSE) 09/05/2012 55941 INR (IN HOUSE) 10/18/2012 Cardiolog Latrell Hawkins 10/25/2012 63859 XRAY CHEST 2 VIEW 12/01/[address] CHEST W/O DYE 12/01/2012 84494 INR (IN HOUSE) 12/01/2012 94045 XRAY THORACIC SPINE 2 VIEWS 01/10/2013 22890 XRAY LUMBAR SPINE 2 OR 3 VIEWS 01/10/2013 80332 ROUTINE VENIPUNCTURE 01/11/2013 74605 INR (IN HOUSE) 01/11/2013 98584 A1C (IN-HOUSE) 01/11/2013 96981 CMP 01/11/2013 60001 LIPID PANEL 01/11/2013 60968 CBC 01/11/2013 1123554 GFR CALC (RESULT ONLY) 01/11/2013 05444 MAMMOGRAM, SCREENING 01/18/2013 J1040 DEPO MEDROL 80 MG INJ 02/21/2013 40775 THERAPUTIC INJ SQ/IM 02/21/2013 60780 UA W/ CULTURE IF INDICATED 02/21/2013 64109 INR (IN HOUSE) 03/09/2013 24700 ROUTINE VENIPUNCTURE 04/17/2013 44021 CMP 04/17/2013 5730348 GFR CALC (RESULT ONLY) 04/17/[address] CHEST W/O DYE 04/20/2013 02117 UA W/ CULTURE IF INDICATED 06/01/2013 96820 CULTURE URINE 06/03/2013 99158 ROUTINE VENIPUNCTURE 10/12/2013 75966 OXIMETRY 10/12/2013 36666 CMP 10/12/2013 6554575 GFR CALC (RESULT ONLY) 10/12/2013 62484 ROUTINE VENIPUNCTURE 02/06/2014 48829 INR (IN HOUSE) 02/06/2014 63758 CMP 02/06/2014 00248 LIPID PANEL 02/06/2014 03147 CPK 02/06/2014 14688 INR (IN HOUSE) 02/19/2014 77718 ROUTINE VENIPUNCTURE 02/26/2014 87276 INR (IN HOUSE) 02/26/2014 69552 UA LONG DIP 02/26/2014 73943 INR (IN HOUSE) 02/26/2014 58915 XRAY CHEST 2 VIEW 02/26/2014 10334 CBC 02/26/2014 74796 CULTURE URINE 02/26/2014 60258 MAMMOGRAM, SCREENING 02/27/2014 63338 PAP SMEAR 02/27/2014 Q0091 PAP SMEAR OBTAIN SMEAR 02/27/2014 94262 INR (IN HOUSE) 05/02/2014 59388 INR (IN HOUSE) 05/20/2014 77661 INR (IN HOUSE) 05/22/2014 83229 INR (IN HOUSE) 05/24/2014 82210 CAPILLARY BLOOD DRAW 05/28/2014 06867 INR (IN HOUSE) 05/28/2014 76126 INR (IN HOUSE) 06/21/2014 90677 INR (IN HOUSE) 06/28/2014 80373 INR (IN HOUSE) 07/01/2014 29921 INR (IN HOUSE) 07/09/2014 93354 INR (IN HOUSE) 07/22/2014 40408 INR (IN HOUSE) 08/30/2014 63153 INR (IN HOUSE) 09/02/2014 89151 INR (IN HOUSE) 09/20/2014 30496 INR (IN HOUSE) 09/30/2014 85638 INR (IN HOUSE) 10/07/2014 20347 INR (IN HOUSE) 11/01/2014 Results Test Result Range Influenza virus A and B antigen detection - 11/30/16 11:34 FLU RESULT NEGATIVE FOR INFLUENZA A AND B ANTIGENS BY [facility] Complete blood count (CBC) with automated [...] 7-25 CREATININE 0.75 mg/dL 0.50-0.99 eGFR NON-AFR. ARMEN[place] 85 mL/min/1.73m2 > OR=60 eGFR 99 mL/min/1.73m2 [...] culture - 01/22/18 10:57 Bacterial urine culture [id number] NRG COLONY COUNT >100,000/ML NRG FTX;REPORTABLE SENSITIVITY REPORTED 01/24/18 9:05 NRG FREE TEXT ENTRY 2 PLUS, NRG FREE TEXT ENTRY 3 MIXED GRAM POSITIVES <10,000/ML NRG Bacterial susceptibility panel - 01/22/18 10:57 Gentamicin [...] susceptibility test by minimum inhibitory concentration - [facility] PT panel in platelet poor plasma by [...] blood basophil count (count/volume) 0.1 10*3/uL 0.0-0.1 Blood lactic acid measurement (moles/volume) - 02/11/18 11:41 Blood lactic acid measurement (moles/volume) 1.54 mmol/L 0.50-2.00 Bacterial blood culture - 02/11/18 11:41 Bacterial blood culture NG NRG Complete blood count (CBC) with automated white blood cell (WBC) differential - 02/11/18 11:57 Blood leukocytes automated count (number/volume) 13.3 10*3/uL 4.3-11.0 Blood erythrocytes automated count (number/volume) 4.49 10*6/uL 4.35-5.85 Venous blood hemoglobin measurement (mass/volume) 12.8 g/dL 11.5-16.0 Blood hematocrit (volume fraction) 39 % 35-52 Automated erythrocyte mean corpuscular volume 86 [foz_us] 80-99 Automated erythrocyte mean corpuscular hemoglobin (mass per erythrocyte) 29 pg 25-34 Automated erythrocyte mean corpuscular hemoglobin concentration measurement ( mass/volume) 33 g/dL 32-36 Automated erythrocyte distribution width ratio 14.9 % 10.0-14.5 Automated blood platelet count (count/volume) 293 10*3/uL 130-400 Automated blood platelet mean volume measurement 10.2 [foz_us] 7.4-10.4 Automated blood neutrophils/100 leukocytes 77 % 42-75 Automated blood lymphocytes/100 leukocytes 11 % 12-44 Blood monocytes/100 leukocytes 8 % 0-12 Automated blood eosinophils/100 leukocytes 3 % 0-10 Automated blood basophils/100 leukocytes 0 % 0-10 Blood neutrophils automated count (number/volume) 10.2 10*3 1.8-7.8 Blood lymphocytes automated count (number/volume) 1.5 10*3 1.0-4.0 Blood monocytes automated count (number/volume) 1.1 10*3 0.0-1.0 Automated eosinophil count 0.5 10*3/uL 0.0-0.3 Automated blood basophil count (count/volume) 0.0 10*3/uL 0.0-0.1 PT panel in platelet poor plasma by coagulation assay - 02/11/18 11:57 Prothrombin time (PT) in platelet poor plasma by coagulation assay 18.6 s 12.2-14.7 INR in platelet poor plasma or blood by coagulation assay 1.6 0.8-1.4 Activated partial thromboplastin time (aPTT) in platelet poor plasma bycoagulation assay - 02/11/18 11:57 Activated partial thromboplastin time (aPTT) in platelet poor plasma bycoagulation assay 38 s 24-35 Comprehensive metabolic panel - 02/11/18 11:57 Serum or plasma sodium measurement (moles/volume) 138 mmol/L 135-145 Serum or plasma potassium measurement (moles/volume) 4.1 mmol/L 3.6-5.0 Serum or plasma chloride measurement (moles/volume) 104 mmol/L 98-107 Carbon dioxide 24 mmol/L 21-32 Serum or plasma anion gap determination (moles/volume) 10 mmol/L 5-14 Serum or plasma urea nitrogen measurement (mass/volume) 14 mg/dL 7-18 Serum or plasma creatinine measurement (mass/volume) 0.72 mg/dL 0.60-1.30 Serum or plasma urea nitrogen/creatinine mass ratio 19 NRG Serum or plasma creatinine measurement with calculation of estimated glomerular filtration rate > NRG Serum or plasma glucose measurement (mass/volume) 111 mg/dL 70-105 Serum or plasma calcium measurement (mass/volume) 9.4 mg/dL 8.5-10.1 Serum or plasma total bilirubin measurement (mass/volume) 0.5 mg/dL 0.1-1.0 Serum or plasma alkaline phosphatase measurement (enzymatic activity/volume) 101 U/L 40-136 Serum or plasma aspartate aminotransferase measurement (enzymatic activity/ volume) 19 U/L 5-34 Serum or plasma alanine aminotransferase measurement (enzymatic activity/volume ) 21 U/L 0-55 Serum or plasma protein measurement (mass/volume) 7.3 g/dL 6.4-8.2 Serum or plasma albumin measurement (mass/volume) 4.1 g/dL 3.2-4.5 Bacterial blood culture - 02/11/18 11:59 Bacterial blood culture NG NRG Encounters ACCT No. Visit Date/Time Discharge Status Pt. Type Provider Facility Loc./Unit Complaint [id number] 02/05/2015 08:29:00 02/05/2015 23:59:59 CLS Outpatient SAE ALMONTE DDS [id number] 01/28/2015 09:08:00 01/28/2015 23:59:59 CLS Outpatient ZACHARIAH TEMPLE APRN [id number] 01/27/2015 05:12:00 01/27/2015 23:59:59 CLS Outpatient [id number] 01/06/2015 09:52:00 01/06/2015 23:59:59 CLS Outpatient BHARAT MANCIA APRN [id number] 11/01/2014 10:30:00 11/01/2014 23:59:59 CLS Outpatient JHONATAN EWING APRN L [id number] 10/07/2014 09:23:00 10/07/2014 23:59:59 CLS Outpatient MADL POWER SHOVEL OPERATOR HELPER, JHONATAN L [id number] 09/30/2014 09:44:00 09/30/2014 23:59:59 CLS Outpatient MADL POWER SHOVEL OPERATOR HELPER, JHONATAN L [id number] 09/30/2014 09:44:00 09/30/2014 23:59:59 CLS Outpatient ROSEY DO AMELIA Lacho [id number] 09/20/2014 09:34:00 09/20/2014 23:59:59 CLS Outpatient MADL POWER SHOVEL OPERATOR HELPER, JHONATAN L [id number] 09/02/2014 09:53:00 09/02/2014 23:59:59 CLS Outpatient MADL POWER SHOVEL OPERATOR HELPER, JHONATAN L [id number] 08/30/2014 09:56:00 08/30/2014 23:59:59 CLS Outpatient MADL POWER SHOVEL OPERATOR HELPER, JHONATAN L [id number] 08/30/2014 09:56:00 08/30/2014 23:59:59 CLS Outpatient MADL POWER SHOVEL OPERATOR HELPER, JHONATAN L [id number] 07/31/2014 09:55:00 07/31/2014 23:59:59 CLS Outpatient MAVERICK POWER SHOVEL OPERATOR HELPER ZACHARIAH R [id number] 07/22/2014 11:05:00 07/22/2014 23:59:59 CLS Outpatient MADL POWER SHOVEL OPERATOR HELPER, JHONATAN L [id number] 07/09/2014 09:33:00 07/09/2014 23:59:59 CLS Outpatient MADL POWER SHOVEL OPERATOR HELPER, JHONATAN L [id number] 07/01/2014 12:29:00 07/01/2014 23:59:59 CLS Outpatient MADL POWER SHOVEL OPERATOR HELPER, JHONATAN L [id number] 06/28/2014 10:34:00 06/28/2014 23:59:59 CLS Outpatient MADL POWER SHOVEL OPERATOR HELPER, JHONATAN L [id number] 06/21/2014 09:52:00 06/21/2014 23:59:59 CLS Outpatient MADL POWER SHOVEL OPERATOR HELPER, JHONATAN L [id number] 06/21/2014 09:52:00 06/21/2014 23:59:59 CLS Outpatient AMELIA CURIRE DO Lacho [id number] 05/28/2014 09:34:00 05/28/2014 23:59:59 CLS Outpatient KAYLIN POWER SHOVEL OPERATOR HELPERJHONATAN Nelson [id number] 05/24/2014 11:46:00 05/24/2014 23:59:59 CLS Outpatient XIOMARAL JHONATAN FUCHS [id number] 05/22/2014 13:24:00 05/22/2014 23:59:59 CLS Outpatient CURRIE DOAMELIA [id number] 05/22/2014 13:24:00 05/22/2014 23:59:59 CLS Outpatient KAYLIN POWER SHOVEL OPERATOR HELPERJHONATAN [id number] 05/20/2014 08:38:00 05/20/2014 23:59:59 CLS Outpatient CURRIE DOAMELIA [id number] 05/02/2014 13:08:00 05/02/2014 23:59:59 CLS Outpatient CURRIE DOAMELIA [id number] 04/09/2014 06:41:00 04/09/2014 23:59:59 CLS Outpatient [id number] 03/22/2014 10:07:00 03/22/2014 23:59:59 CLS Outpatient JHONATAN EWING APRN [id number] 02/26/2014 10:03:00 02/26/2014 23:59:59 CLS Outpatient CURRIE DOAMELIA [id number] 02/26/2014 10:03:00 02/26/2014 23:59:59 CLS Outpatient CURRIE DOAMELIA [id number] 02/26/2014 08:44:00 02/26/2014 23:59:59 CLS Outpatient MARCI NASH APRN [id number] 02/19/2014 08:39:00 02/19/2014 23:59:59 CLS Outpatient CURRIE DOAMELIA Lacho [id number] 02/06/2014 08:49:00 02/06/2014 23:59:59 CLS Outpatient CURRIE DOAMELIA Lacho [id number] 01/22/2014 08:32:00 01/22/2014 23:59:59 CLS Outpatient CURRIE DO, AMELIA Lacho [id number] 12/06/2013 10:19:00 12/06/2013 23:59:59 CLS Outpatient ALLI HUNT MD [id number] 10/12/2013 09:23:00 10/12/2013 23:59:59 CLS Outpatient MGADALENA EUCEDA MD [id number] 10/12/2013 09:23:00 10/12/2013 23:59:59 CLS Outpatient MAGDALENA EUCEDA MD [id number] 10/02/2013 14:34:00 10/02/2013 23:59:59 CLS Outpatient FELIBERTO GARCIA APRN [id number] 07/02/2013 13:38:00 07/02/2013 23:59:59 CLS Outpatient [id number] 01/16/2013 11:02:00 01/16/2013 23:59:59 CLS Outpatient [id number] 11/30/2012 09:14:00 11/30/2012 23:59:59 CLS Outpatient MAGDALENA EUCEDA MD [id number] 11/20/2012 11:53:00 11/20/2012 23:59:59 CLS Outpatient [id number] 10/18/2012 09:51:00 10/18/2012 23:59:59 CLS Outpatient MAGDALENA EUCEDA MD [id number] 10/18/2012 09:51:00 10/18/2012 23:59:59 CLS Outpatient MAGDALENA EUCEDA MD [id number] 09/14/2012 09:40:00 09/14/2012 23:59:59 CLS Outpatient MAGDALENA EUCEDA MD 61 07/12/2012 08:30:00 07/12/2012 23:59:59 CLS Outpatient MAGDALENA EUCEDA MD [id number] 04/17/2013 09:37:00 Document Registration [id number] 04/17/2013 09:37:00 Document Registration [id number] 03/09/2013 08:23:00 Document Registration [id number] 03/09/2013 08:23:00 Document Registration [id number] 02/21/2013 10:38:00 Document Registration [id number] 01/10/2013 09:31:00 Document Registration [id number] 02/11/2018 09:58:00 02/11/2018 13:40:00 DIS Emergency MARKOS RDZ DO [facility] ER MOUTH SWELLING FROM TOOTH PAIN [id number] 01/25/2018 13:04:00 01/25/2018 23:59:59 CLS Preadmit BHARAT MANCIA [facility] RAD SCREENING [id number] 01/22/2018 10:43:00 01/22/2018 12:12:00 DIS Emergency EVELINE PENG MD [facility] ER BLOOD IN URINE [id number] 01/10/2018 11:25:00 01/10/2018 23:59:59 CLS Preadmit MARY GRACE ORTEGA [facility] CARD I25.10 CAD [id number] 07/29/2017 20:36:00 07/29/2017 21:30:00 DIS Emergency COREY DIAL POWER SHOVEL OPERATOR HELPER [facility] ER DENTAL PAIN [id number] 06/20/2017 13:33:00 06/20/2017 14:25:00 DIS Emergency EVELINE PENG MD [facility] ER TOOTH ACHE [id number] 03/11/2017 09:20:00 03/11/2017 23:59:59 CLS Outpatient LATRELL HAWKINS MD [facility] RAD E04.1 [id number] 02/11/2017 09:45:00 02/11/2017 23:59:59 CLS Outpatient LATRELL HAWKINS MD [facility] CARD I25.10 [id number] 02/09/2017 13:30:00 02/09/2017 23:59:59 CLS Preadmit LATRELL HAWKINS MD [facility] CARD I25.10 [id number] 01/16/2017 09:06:00 01/16/2017 10:05:00 DIS Emergency ARMANDO CHAVIS, MIHAI Aiken [facility] ER L SIDE DENTAL PAIN [id number] 11/30/2016 11:25:00 11/30/2016 13:14:00 DIS Emergency DENNYS LEWIS MD [facility] ER COUGH/RIB PAIN DUONGKEY [id number] 04/29/2016 12:01:00 04/29/2016 23:59:59 CLS Outpatient BHARAT MANCIA [facility] RAD SCREENING [id number] 09/18/2015 21:24:00 09/18/2015 22:11:00 DIS Emergency COREY DIAL POWER SHOVEL OPERATOR HELPER [facility] ER L ARM PAIN [id number] 06/25/2015 10:53:00 06/25/2015 23:59:59 CLS Outpatient LATRELL HAWKINS MD [facility] CARD CAD,COPD [id number] 03/26/2015 08:00:00 03/26/2015 23:59:59 CLS Preadmit LATRELL HAWKINS MD [facility] CARD CAD,HTN,PALPITATIONS [id number] 02/27/2015 09:26:00 02/27/2015 23:59:59 CLS Outpatient LATRELL HAWKINS MD [facility] CARD CAD,HTN,PALPITATIONS [id number] 05/14/2014 17:58:00 05/14/2014 20:04:00 DIS Emergency OG FERNANDO DO [facility] ER BACK PAIN; CHEST PAIN [id number] 03/13/2014 10:07:00 03/13/2014 23:59:59 CLS Outpatient MARCI NASH POWER SHOVEL OPERATOR HELPER [facility] RAD ROUTINE [id number] 01/22/2014 15:12:00 01/22/2014 18:23:00 DIS Emergency COREY DIAL POWER SHOVEL OPERATOR HELPER Via [facility] ER L ARM PAIN [id number] 12/12/2013 10:10:00 12/12/2013 23:59:59 CLS Outpatient ALLI HUNT MD Via [facility] RAD LESION RT THY [id number] 11/08/2013 14:59:00 11/08/2013 23:59:59 CLS Outpatient [id number] 05/01/2013 12:57:00 05/01/2013 23:59:59 CLS Outpatient ALLI HUNT MD [facility] RAD MULTIPLE PULM NODULES ,FOLLOW-UP [id number] 02/18/2015 12:58:00 Document Registration [id number] 02/18/2015 12:58:00 Document Registration [id number] 02/18/2015 12:58:00 Document Registration [id number] 02/18/2015 12:58:00 Document Registration [id number] 02/18/2015 12:57:00 Document Registration [id number] 02/18/2015 12:57:00 Document Registration [id number] 02/18/2015 12:57:00 Document Registration [id number] 02/01/2013 08:26:00 Document Registration [id number] 01/18/2013 09:47:00 Document Registration [id number] 12/14/2012 09:48:00 Document Registration [id number] 03/12/2011 08:11:00 Document Registration [id number] 12/29/2010 09:44:00 Document Registration [id number] 11/08/2010 10:12:00 Document Registration [id number] 10/20/2010 09:44:00 Document Registration [id number] 08/17/2010 12:10:00 Document Registration [id number] 02/02/2010 12:03:00 Document Registration [id number] 11/05/2009 10:14:00 Document Registration [id number] 06/26/2015 05:40:55 ACT Document Registration [id number] 12/09/2016 08:44:00 Document Registration [id number] 02/22/2018 09:10:00 02/22/2018 23:59:59 [facility] Outpatient BHARAT MANCIA APRN [facility] [id number] 01/12/2018 09:20:00 Document Registration [id number] 12/28/2017 11:20:00 Document Registration [id number] 08/31/2017 10:00:00 Document Registration
== END 2018-03-05 21:20 | disposition home or self-care (01) ==
LOC: EDUNIT# 19:29 → ER 19:30
DX: S60.454A Superficial foreign body of right ring finger, initial encounter (principal); J44.9 Chronic obstructive pulmonary disease, unspecified; I25.10 Atherosclerotic heart disease of native coronary artery without angina pectoris; I10 Essential (primary) hypertension; K21.9 Gastro-esophageal reflux disease without esophagitis; Z87.19 Personal history of other diseases of the digestive system; Z95.1 Presence of aortocoronary bypass graft; Z95.2 Presence of prosthetic heart valve; Z98.51 Tubal ligation status; Z23 Encounter for immunization; Z87.891 Personal history of nicotine dependence; Z88.0 Allergy status to penicillin; Z88.1 Allergy status to other antibiotic agents; Z88.6 Allergy status to analgesic agent; Z79.82 Long term (current) use of aspirin; Z79.01 Long term (current) use of anticoagulants; W45.8XXA Other foreign body or object entering through skin, initial encounter
CPT/HCPCS: 90471; 90715; 99284

== ENCOUNTER 2019-05-15 21:37 | Emergency (ER) | payer MEDICARE, MEDICAID ==
[~2019-05-15] VITALS: Ht 152.4 cm; Wt 86.2 kg
[~2019-05-15 21:37] MED LIST changes: +CIPR500T4 PO; -HYDR118S10 PO; +HYDR15SO6 PO
[2019-05-15] MEDS ORDERED: DOXY100T2 PO (21:56)
[2019-05-15] MEDS ORDERED: METR500T PO (21:56)
--- NOTE | 2019-05-15 21:56 | ED Integumentary General ---
General Chief Complaint: Bite-Animal/Human/Insect Stated Complaint: DOG BITE Source: patient Exam Limitations: no limitations History of Present Illness Date Seen by Provider: May 15, 2019 Time Seen by Provider: 21:51 Initial Comments To ER with reports of a dog bite. She has laceration to the medial aspect of right lower ankle. She was trying to break up a fight between her own 2 dogs. She states both of them are up-to-date on vaccines. She however is not up-to- date on her tetanus vaccine. She is allergic to penicillins. Timing/Duration: just prior to arrival Severity: moderate Location: extremities Associated Symptoms: denies symptoms Allergies and Home Medications Allergies Coded Allergies: Iodinated Contrast Media - Oral and (Verified Allergy, Unknown, 05/28/06) Penicillins (Verified Allergy, Unknown, 05/29/06) tramadol (Unverified Allergy, Unknown, 01/22/14) vancomycin (Verified Allergy, Unknown, 05/29/06) Home Medications Albuterol Sulfate 6.7 Gm Hfa.aer.ad, 2 PUFF IH Q6H PRN for SHORTNESS OF BREATH, (Reported) Aspirin 325 Mg Tab, 325 MG PO DAILY, (Reported) Cefdinir 250 Mg/5 Ml Susp.recon, 300 MG PO BID Prescribed by: MARKOS RDZ on 02/11/18 132 Cefprozil 250 Mg Tablet, 1 TAB PO BID Prescribed by: OG FERNANDO on 05/14/141999 Ciprofloxacin HCl 500 Mg Tablet, 500 MG PO BID Prescribed by: JUDY HU on 03/05/182105 Esomeprazole Mag Trihydrate 40 Mg Capsule.dr, 40 MG PO DAILY, (Reported) Furosemide 40 Mg Tablet, 40 MG PO DAILY, (Reported) Hydrocodone Bit/Acetaminophen 1 Each Tablet, 1-2 EACH PO Q6H PRN for PAIN- MODERATE Prescribed by: EVELINE PENG on 06/20/17 1413 Hydrocodone Bit/Acetaminophen 118 Ml Solution, 15 ML PO Q4H PRN for PAIN Prescribed by: MARKOS RDZ on 02/11/18 1324 Metoprolol Succinate 25 Mg Tab.sr.24h, 25 MG PO DAILY, (Reported) Warfarin Sodium 3 Mg Tablet, 9 MG PO DAILY EXCEPT WOLFF/, (Reported) 12 mg on WOLFF-TU Warfarin Sodium 3 Mg Tablet, 12 MG PO ON SUN-TUES, (Reported) [Albuteral Inhaler] , NEEDED, (Reported) Patient Home Medication List Home Medication List Reviewed: Yes Review of Systems Review of Systems Constitutional: see HPI EENTM: see HPI Respiratory: no symptoms reported Cardiovascular: no symptoms reported Genitourinary: no symptoms reported Musculoskeletal: no symptoms reported Skin: see HPI Psychiatric/Neurological: No Symptoms Reported Endocrine: No Symptoms Reported Past Dedoarb-Iyoigh-Poybfo Hx Patient Social History Type Used: Cigarettes Former Smoker, Quit: Jan 15, 1974 Recent Foreign Travel: No Contact w/Someone Who Travel: No Recent Hopitalizations: No Immunizations Up To Date Tetanus Booster (TDap): Unknown Seasonal Allergies Seasonal Allergies: No Past Medical History Surgeries: Yes Appendectomy, Cardiac, CABG, Tubal Ligation, Valve Replacement Respiratory: Yes Asthma, Chronic Bronchitis, COPD Cardiac: Yes Coronary Artery Disease, Hypertension, Valvular Heart Disease Neurological: No Reproductive Disorders: No Genitourinary: Yes UTI-Chronic Gastrointestinal: Yes Gastroesophageal Reflux, Hiatal Hernia Musculoskeletal: Yes Arthritis, Rheumatoid Arthritis Endocrine: No HEENT: Yes (CHRONIC DENTAL PROBLEMS) Cancer: No Psychosocial: No Integumentary: No Blood Disorders: No Family Medical History No Pertinent Family Hx Physical Exam Vital Signs Capillary Refill : General Appearance: WD/WN, no apparent distress HEENT: PERRL/EOMI, normal ENT inspection Respiratory: no respiratory distress, no accessory muscle use Neurologic/Psychiatric: alert, normal mood/affect, oriented x 3 Skin: normal color, warm/dry Skin Problem Location: lower extremities Skin Problem Character: other (to the medial aspect of the right lower leg there is a 2 cm laceration with depth to the subcutaneous tissues. There is no active bleeding. This was irrigated thoroughly with Betadine/saline solution, covered with antibiotic ointment and gauze then wrapped with Coban. This was not closed. Discussed with her the need for follow-up with primary care for wound care and reevaluation.) Progress/Results/Core Measures Results/Orders My Orders Orders - COREY DIAL APRN Dipht,Pertnarayan(Acell),Tet Adult (Boostrix (05/15/19 22:00) Levofloxacin Tablet (Levaquin Tablet) (05/15/19 22:00) Metronidazole Tablet (Flagyl Tablet) (05/15/19 22:00) Departure Impression Primary Impression: Dog bite Qualified Codes: W54.0XXA - Bitten by dog, initial encounter Disposition: 01 HOME, SELF-CARE Condition: Stable Departure-Patient Inst. Decision time for Depature: 21:53 Referrals: [facility] (PCP) Primary Care Physician BHARAT MANCIA (Family) Primary Care Physician Patient Instructions: Animal Bites (DC) Add. Discharge Instructions: 1. Keep a close eye on this for any sign of infection which is redness around the wound or fevers. You're going to have some drainage out of this over the next few days. This should mostly be clear, a little bloody. Take antibiotics as directed. Keep this elevated tonight. Keep this covered with a dressing as you were shown in the emergency room. Call your doctor tomorrow to make an appointment to be seen later this week on Tuesday for wound check. You can shower letting water run over this but do not soak it in water such as a [place] or hot tub until the wound has healed in about 2 weeks. All discharge instructions reviewed with patient and/or family. Voiced understanding. Scripts Metronidazole (Flagyl) 500 Mg Tablet 500 MG PO TID, #21 TAB Prov: COREY DIAL APRN 05/15/19 Doxycycline Hyclate (Doxycycline Hyclate) 100 Mg Tablet 100 MG PO BID, #14 TAB 0 Refills Prov: COREY DIAL APRN 05/15/19 COREY DIAL APRN May 15, 2019 21:56
[2019-05-15] MEDS ORDERED: LEVOFLOXACIN 500 MG TAB (LEVAQUIN) PO ONE (22:00)
[2019-05-15] MEDS ORDERED: TETANUS,DIPTH,PERTUSS P/F (BOOSTRIX) 0.5 ML VIAL IM ONE (22:00)
[2019-05-15] MEDS ORDERED: metroNIDAZOLE 500 MG (FLAGYL) TAB PO ONE (22:00)
[2019-05-15 22:08] VITALS: BP 176/91
== END 2019-05-15 22:08 | disposition home or self-care (01) ==
LOC: EDUNIT# 21:37 → ER 21:38
DX: S81.811A Laceration without foreign body, right lower leg, initial encounter (principal); I10 Essential (primary) hypertension; I25.10 Atherosclerotic heart disease of native coronary artery without angina pectoris; J44.9 Chronic obstructive pulmonary disease, unspecified; K21.9 Gastro-esophageal reflux disease without esophagitis; M06.9 Rheumatoid arthritis, unspecified; Z23 Encounter for immunization; Z95.2 Presence of prosthetic heart valve; Z90.49 Acquired absence of other specified parts of digestive tract; Z95.1 Presence of aortocoronary bypass graft; Z98.51 Tubal ligation status; Z79.82 Long term (current) use of aspirin; Z79.01 Long term (current) use of anticoagulants; Z87.891 Personal history of nicotine dependence; Z88.0 Allergy status to penicillin; Z91.041 Radiographic dye allergy status; Z88.1 Allergy status to other antibiotic agents; Z88.5 Allergy status to narcotic agent; W54.0XXA Bitten by dog, initial encounter
CPT/HCPCS: 90471; 90715

== ENCOUNTER 2019-06-22 08:50 | Emergency (ER) | payer MEDICARE, MEDICAID ==
[~2019-06-22] VITALS: Ht 149.9 cm; Wt 90.3 kg
[~2019-06-22 08:50] MED LIST changes: +DOXY100T2 PO; +METR500T PO
--- NOTE | 2019-06-22 09:47 | ED Lower Extremity ---
General Chief Complaint: Lower Extremity Stated Complaint: LEG INJ Nursing Triage Note: pt presents to ed with complaints of r lower leg wound x 2-3 months ago after a dog bite. pt reports she was placed on antibiotics but does not feel that the wound is healing appropriiately. Nursing Sepsis Screen: No Definite Risk Source: patient Exam Limitations: no limitations History of Present Illness Date Seen by Provider: Jun 22, 2019 Time Seen by Provider: 09:44 Initial Comments 60 white female presents with a wound to the right ankle area from a provoked dog bite to 3 months ago. The pitbull, which is the patient's dog, has had his shots. Although the patient has taken antibiotics the wound is not healed completely and she is concerned. She denies fever, chills, ascending lymphedema, significant peripheral edema, paresthesias or weakness in the extremity, or other remarkable complaint. Allergies and Home Medications Allergies Coded Allergies: Iodinated Contrast Media - Oral and (Verified Allergy, Unknown, 05/28/06) Penicillins (Verified Allergy, Unknown, 05/29/06) tramadol (Unverified Allergy, Unknown, 01/22/14) vancomycin (Verified Allergy, Unknown, 05/29/06) Home Medications Albuterol Sulfate 6.7 Gm Hfa.aer.ad, 2 PUFF IH Q6H PRN for SHORTNESS OF BREATH, (Reported) Aspirin 325 Mg Tab, 325 MG PO DAILY, (Reported) Cefdinir 250 Mg/5 Ml Susp.recon, 300 MG PO BID Prescribed by: MARKOS RDZ on 02/11/18 1324 Cefprozil 250 Mg Tablet, 1 TAB PO BID Prescribed by: OG FERNANDO on 05/14/141999 Ciprofloxacin HCl 500 Mg Tablet, 500 MG PO BID Prescribed by: JUDY HU on 03/05/182105 Doxycycline Hyclate 100 Mg Tablet, 100 MG PO BID Prescribed by: COREY DIAL on 05/15/192155 Esomeprazole Mag Trihydrate 40 Mg Capsule.dr, 40 MG PO DAILY, (Reported) Furosemide 40 Mg Tablet, 40 MG PO DAILY, (Reported) Hydrocodone Bit/Acetaminophen 1 Each Tablet, 1-2 EACH PO Q6H PRN for PAIN- MODERATE Prescribed by: EVELINE PENG on 06/20/17 1413 Hydrocodone Bit/Acetaminophen 118 Ml Solution, 15 ML PO Q4H PRN for PAIN Prescribed by: MARKOS RZD on 02/11/18 1324 Metoprolol Succinate 25 Mg Tab.sr.24h, 25 MG PO DAILY, (Reported) Metronidazole 500 Mg Tablet, 500 MG PO TID Prescribed by: COREY DIAL on 05/15/19 2156 Warfarin Sodium 3 Mg Tablet, 9 MG PO DAILY EXCEPT WOLFF/TU, (Reported) 12 mg on WOLFF-TU Warfarin Sodium 3 Mg Tablet, 12 MG PO ON SUN-TUES, (Reported) [Albuteral Inhaler] , NEEDED, (Reported) Patient Home Medication List Home Medication List Reviewed: Yes Review of Systems Constitutional: No chills, No fever EENTM: no symptoms reported Respiratory: no symptoms reported Cardiovascular: no symptoms reported Gastrointestinal: no symptoms reported Genitourinary: no symptoms reported Musculoskeletal: see HPI Skin: see HPI, other (patient has eschar noted over the medial aspect of the) Psychiatric/Neurological: No Symptoms Reported Past Ruoitcy-Gxryub-Piexgf Hx Past Med/Social Hx: Reviewed Nursing Past Med/Soc Hx Patient Social History Alcohol Use: Denies Use Recreational Drug Use: No Type Used: Cigarettes Former Smoker, Quit: Jan 15, 1974 2nd Hand Smoke Exposure: No Recent Foreign Travel: No Contact w/Someone Who Travel: No Recent Infectious Disease Expo: No Recent Hopitalizations: No Physical Abuse: No Sexual Abuse: No Mistreated: No Fear: No Immunizations Up To Date Tetanus Booster (TDap): Unknown Seasonal Allergies Seasonal Allergies: No Past Medical History Surgeries: Yes Appendectomy, Cardiac, CABG, Tubal Ligation, Valve Replacement Respiratory: Yes Asthma, Chronic Bronchitis, COPD Cardiac: Yes Coronary Artery Disease, Hypertension, Valvular Heart Disease Neurological: No Reproductive Disorders: No Genitourinary: Yes UTI-Chronic Gastrointestinal: Yes Gastroesophageal Reflux, Hiatal Hernia Musculoskeletal: Yes Arthritis, Rheumatoid Arthritis Endocrine: No HEENT: Yes (CHRONIC DENTAL PROBLEMS) Cancer: No Psychosocial: No Integumentary: No Blood Disorders: No Family Medical History No Pertinent Family Hx Physical Exam Vital Signs Vital Signs - First Documented 06/22/19 09:12 Temp 97.3 Pulse 90 Resp 20 B/P (MAP) 139/75 (96) Pulse Ox 96 Capillary Refill : Less Than 3 Seconds Height, Weight, BMI Height: 4'11.00" Weight: 199lbs. 1.6oz. 90.679284hg; 35.51 BMI Method:Stated General Appearance: WD/WN, no apparent distress HEENT: normal ENT inspection Neck: normal inspection Cardiovascular: regular rate, rhythm Respiratory: no respiratory distress Ankles: right ankle other (there is an eschar approximately 3 cm linear area over the medial aspect of the right ankle from the patient's previous dog bite. There is no ascending lymphedema. There is no purulent drainage.) Neurologic/Tendon: normal sensation, normal motor functions, normal tendon functions Neurologic/Psychiatric: no motor/sensory deficits Progress/Results/Core Measures Results/Orders My Orders Orders - MIHAI ROBERTS MD Ankle, Right, 3 Views (06/22/19 10:06) Mupirocin Ointment (Bactroban Ointment (06/22/19 21:00) Mupirocin Ointment (Bactroban Ointment (06/22/19 10:53) Vital Signs/I&O 06/22/19 09:12 Temp 97.3 Pulse 90 Resp 20 B/P (MAP) 139/75 (96) Pulse Ox 96 Blood Pressure Mean: 96 Progress Progress Note : Time: 11:04 Progress Note X-ray of the patient's right ankle was unremarkable. Mupirocin cream was applied to the open wound. Patient was scheduled for a wound care follow-up next Tuesday at 8 a.m. Departure Impression Primary Impression: Wound of right ankle Qualified Codes: S91.001A - Unspecified open wound, right ankle, initial encounter Disposition: 01 HOME, SELF-CARE Condition: Improved Departure-Patient Inst. Decision time for Depature: 11:05 Referrals: [facility]/ (PCP) Primary Care Physician BHARAT MANCIA (Family) Primary Care Physician Patient Instructions: Wound Care (DC) Add. Discharge Instructions: Clean the wound of the right ankle 3 times a day and apply mupirocin cream. Follow-up with wound care here at the hospital Tuesday at 8 a.m. Go straight to the wound care area with your insurance information. Return if any problems or questions. All discharge instructions reviewed with patient and/or family. Voiced understanding. MIHAI ROBERTS MD Jun 22, 2019 09:47
[2019-06-22] MEDS ORDERED: MUPIROCIN 2% OINT 22 GM (BACTROBAN) TUBE ONE (10:53)
--- NOTE | 2019-06-22 11:00 | Diagnostic Imaging Report ---
INDICATION: Dog bite to the right ankle. TIME OF EXAM: 10:45 AM 3 views of the right ankle were obtained. FINDINGS: Alignment is normal. Ankle mortise is well maintained. The talar dome is smooth. No fracture or dislocation is seen. Large plantar calcaneal spur is noted. No significant soft tissue swelling or soft tissue gas is identified. IMPRESSION: No acute abnormality is detected. Dictated by: Dictated on workstation # [id number]
[2019-06-22 11:12] VITALS: BP 127/70
[2019-06-22] MEDS ORDERED: MUPIROCIN 2% OINT 22 GM (BACTROBAN) TUBE TOP SCH (21:00)
== END 2019-06-22 11:12 | disposition home or self-care (01) ==
LOC: EDUNIT# 08:50 → ER 08:51
DX: S91.051D Open bite, right ankle, subsequent encounter (principal); J44.9 Chronic obstructive pulmonary disease, unspecified; I25.10 Atherosclerotic heart disease of native coronary artery without angina pectoris; I10 Essential (primary) hypertension; K21.9 Gastro-esophageal reflux disease without esophagitis; M06.9 Rheumatoid arthritis, unspecified; Z87.19 Personal history of other diseases of the digestive system; Z87.440 Personal history of urinary (tract) infections; Z91.041 Radiographic dye allergy status; Z88.0 Allergy status to penicillin; Z88.5 Allergy status to narcotic agent; Z88.1 Allergy status to other antibiotic agents; Z79.82 Long term (current) use of aspirin; Z79.01 Long term (current) use of anticoagulants; Z87.891 Personal history of nicotine dependence; Z90.49 Acquired absence of other specified parts of digestive tract; Z95.1 Presence of aortocoronary bypass graft; Z98.51 Tubal ligation status; Z95.2 Presence of prosthetic heart valve; W54.0XXD Bitten by dog, subsequent encounter
CPT/HCPCS: 73610

== ENCOUNTER → 2019-06-26 | Outpatient (CLI) | payer MEDICARE, MEDICAID | LOC: WOUNDCARE 08:06 | PROVIDERS: ATTEND Nurse Practitioner | DX: I70.232 Atherosclerosis of native arteries of right leg with ulceration of calf (principal); L97.212 Non-pressure chronic ulcer of right calf with fat layer exposed; J44.9 Chronic obstructive pulmonary disease, unspecified; I25.10 Atherosclerotic heart disease of native coronary artery without angina pectoris; I10 Essential (primary) hypertension; M06.9 Rheumatoid arthritis, unspecified | CPT/HCPCS: 99214 ==

== ENCOUNTER → 2019-06-26 | Outpatient (CLI) | payer MEDICARE, MEDICAID ==
[2019-06-26 10:24] LABS: ALANINE AMINOTRANSFERASE 53 U/L (0-55); ALBUMIN 4.1 GM/DL (3.2-4.5); ALKALINE PHOSPHATASE 107 U/L (40-136); BILIRUBIN,TOTAL 0.4 MG/DL (0.1-1.0); BUN/CREATININE RATIO 21; CALCIUM 9.5 MG/DL (8.5-10.1); CARBON DIOXIDE 27 MMOL/L (21-32); CHLORIDE 106 MMOL/L (98-107); CHOLESTEROL 252 MG/DL (< 200); CREATININE SERUM 0.77 MG/DL (0.60-1.30); GFR ESTIMATED > 60; GLUCOSE 100 MG/DL (70-105); HDL CHOLESTEROL 44 MG/DL (40-60); POTASSIUM 4.1 MMOL/L (3.6-5.0); SODIUM 140 MMOL/L (135-145); TRIGLYCERIDES 198 MG/DL (<150); VLDL CHOLESTEROL 40 MG/DL (5-40)
== END ==
LOC: LAB 09:37
PROVIDERS: ATTEND Physician Assistant
DX: E78.2 Mixed hyperlipidemia (principal)
CPT/HCPCS: 36415; 80053; 80061

== ENCOUNTER → 2019-07-10 | Outpatient (CLI) | payer MEDICARE, MEDICAID | LOC: WOUNDCARE 10:42 | PROVIDERS: ATTEND Nurse Practitioner | DX: I70.261 Atherosclerosis of native arteries of extremities with gangrene, right leg (principal); L97.212 Non-pressure chronic ulcer of right calf with fat layer exposed | CPT/HCPCS: 11042 ==

== ENCOUNTER → 2019-07-10 | Outpatient (CLI) | payer MEDICARE, MEDICAID ==
[2019-07-10 12:10] LABS: BUN/CREATININE RATIO 23; CALCIUM 9.9 MG/DL (8.5-10.1); CARBON DIOXIDE 27 MMOL/L (21-32); CHLORIDE 107 MMOL/L (98-107); CREATININE SERUM 0.74 MG/DL (0.60-1.30); GFR ESTIMATED > 60; GLUCOSE 86 MG/DL (70-105); POTASSIUM 4.1 MMOL/L (3.6-5.0); SODIUM 140 MMOL/L (135-145)
== END ==
LOC: LAB 11:40
PROVIDERS: ATTEND Nurse Practitioner
DX: I70.232 Atherosclerosis of native arteries of right leg with ulceration of calf (principal); L97.212 Non-pressure chronic ulcer of right calf with fat layer exposed
CPT/HCPCS: 36415; 80048

== ENCOUNTER → 2019-07-17 | Outpatient (CLI) | payer MEDICARE, MEDICAID | LOC: WOUNDCARE 09:50 | PROVIDERS: ATTEND Nurse Practitioner | DX: I70.261 Atherosclerosis of native arteries of extremities with gangrene, right leg (principal); L97.212 Non-pressure chronic ulcer of right calf with fat layer exposed | CPT/HCPCS: 11042 ==

== ENCOUNTER → 2019-07-24 | Outpatient (CLI) | payer MEDICARE, MEDICAID | LOC: WOUNDCARE 10:03 | PROVIDERS: ATTEND Nurse Practitioner | DX: L97.211 Non-pressure chronic ulcer of right calf limited to breakdown of skin (principal); I70.232 Atherosclerosis of native arteries of right leg with ulceration of calf; I96 Gangrene, not elsewhere classified | CPT/HCPCS: 97597 ==

== ENCOUNTER → 2019-07-31 | Outpatient (CLI) | payer MEDICARE, MEDICAID | LOC: WOUNDCARE 09:52 | PROVIDERS: ATTEND Nurse Practitioner | DX: I70.232 Atherosclerosis of native arteries of right leg with ulceration of calf (principal); L97.211 Non-pressure chronic ulcer of right calf limited to breakdown of skin | CPT/HCPCS: 99212 ==

== ENCOUNTER 2019-10-28 23:48 | Observation (INO) | payer MEDICARE, MEDICAID ==
[~2019-10-28] VITALS: Ht 150 cm; Wt 93.4 kg
[2019-10-28] MEDS ORDERED: NS IV 1000 ML 1,000 ML IV SCH (23:54)
[2019-10-28] MEDS ORDERED: NS IV 500 ML 500 ML IV ONE (23:54)
[2019-10-29] VITALS (8 sets, daily range): BP systolic 89–142; BP diastolic 49–91
[2019-10-29] MEDS ORDERED: AZITHROMYCIN INJECTION 500 MG in NS (IVPB) 250 ML IV ONE ×2
[2019-10-29] MEDS ORDERED: RT-ALBUTEROL/IPRATROPIUM 3 ML (DUONEB) VIAL INH ONE
[2019-10-29] MEDS ORDERED: cefTRIAXone FOR IV USE 1,000 MG in WATER (STERILE) FOR INJECTION 10 ML IV ONE ×2
--- NOTE | 2019-10-29 00:03 | ED Respiratory ---
General Stated Complaint: SOA, CHOKING ON MUCUS Source: patient, family (daughter) Exam Limitations: no limitations History of Present Illness Date Seen by Provider: Oct 28, 2019 Time Seen by Provider: 23:40 Initial Comments Patient presents to the ER by private conveyance from home with chief complaint of one week of respiratory symptoms with subjective fevers. She has been coughing and twice has gone to urgent care. She was given albuterol and cough syrup. She picked up the albuterol but has not been using it. She has not picked up cough syrup because it cost too much. She has a history of COPD and asthma and says she is dependent on oxygen 2 L by nasal cannula at night for sleeping. She has not been wearing it. Her daughter says they were concerned because she was coughing and choking up on her own phlegm. She's not having any nausea or chest pain although she does have a history of CABG. She's not having any sweats diarrhea or constipation. Allergies and Home Medications Allergies Coded Allergies: Iodinated Contrast Media - Oral and (Verified Allergy, Unknown, 05/28/06) Penicillins (Verified Allergy, Unknown, 05/29/06) tramadol (Unverified Allergy, Unknown, 01/22/14) vancomycin (Verified Allergy, Unknown, 05/29/06) Home Medications Albuterol Sulfate 6.7 Gm Hfa.aer.ad, 2 PUFF IH Q6H PRN for SHORTNESS OF BREATH, (Reported) Aspirin 325 Mg Tab, 325 MG PO DAILY, (Reported) Cefdinir 250 Mg/5 Ml Susp.recon, 300 MG PO BID Prescribed by: MARKOS RDZ on 02/11/18 1324 Cefprozil 250 Mg Tablet, 1 TAB PO BID Prescribed by: OG FERNANDO on 05/14/141999 Ciprofloxacin HCl 500 Mg Tablet, 500 MG PO BID Prescribed by: JUDY HU on 03/05/182105 Doxycycline Hyclate 100 Mg Tablet, 100 MG PO BID Prescribed by: COREY DIAL on 05/15/192155 Esomeprazole Mag Trihydrate 40 Mg Capsule.dr, 40 MG PO DAILY, (Reported) Furosemide 40 Mg Tablet, 40 MG PO DAILY, (Reported) Hydrocodone Bit/Acetaminophen 1 Each Tablet, 1-2 EACH PO Q6H PRN for PAIN- MODERATE Prescribed by: EVELINE PENG on 06/20/17 1413 Hydrocodone Bit/Acetaminophen 118 Ml Solution, 15 ML PO Q4H PRN for PAIN Prescribed by: MARKOS RDZ on 02/11/18 1324 Metoprolol Succinate 25 Mg Tab.sr.24h, 25 MG PO DAILY, (Reported) Metronidazole 500 Mg Tablet, 500 MG PO TID Prescribed by: COREY DIAL on 05/15/19 2156 Warfarin Sodium 3 Mg Tablet, 9 MG PO DAILY EXCEPT WOLFF/TU, (Reported) 12 mg on WOLFF-TU Warfarin Sodium 3 Mg Tablet, 12 MG PO ON SUN-TUES, (Reported) [Albuteral Inhaler] , NEEDED, (Reported) Patient Home Medication List Home Medication List Reviewed: Yes Review of Systems Review of Systems Constitutional: chills; No diaphoresis; fever, malaise EENTM: No ear discharge, No ear pain Respiratory: cough, dyspnea on exertion, phlegm, short of breath, wheezing Cardiovascular: No chest pain, No edema; Hx of Intervention Gastrointestinal: No abdominal pain, No nausea Genitourinary: No discharge, No dysuria Musculoskeletal: No back pain, No joint pain Skin: No pruritus, No rash Psychiatric/Neurological: Denies Headache, Denies Numbness, Denies Paresthesia All Other Systems Reviewed Negative Unless Noted: Yes Past Ixbzffl-Zbrwaw-Bmiqog Hx Patient Social History Alcohol Use: Denies Use Recreational Drug Use: No Smoking Status: Former Smoker Type Used: Cigarettes Former Smoker, Quit: Jan 15, 1974 2nd Hand Smoke Exposure: No Recent Foreign Travel: No Contact w/Someone Who Travel: No Recent Hopitalizations: No Immunizations Up To Date Tetanus Booster (TDap): Unknown Seasonal Allergies Seasonal Allergies: No Past Medical History Surgeries: Yes Appendectomy, Cardiac, CABG, Tubal Ligation, Valve Replacement Respiratory: Yes Asthma, Chronic Bronchitis, COPD Cardiac: Yes Coronary Artery Disease, Hypertension, Valvular Heart Disease Neurological: No Reproductive Disorders: No Genitourinary: Yes UTI-Chronic Gastrointestinal: Yes Gastroesophageal Reflux, Hiatal Hernia Musculoskeletal: Yes Arthritis, Rheumatoid Arthritis Endocrine: No HEENT: Yes (CHRONIC DENTAL PROBLEMS) Cancer: No Psychosocial: No Integumentary: No Blood Disorders: No Family Medical History No Pertinent Family Hx Physical Exam Vital Signs - First Documented 10/28/19 23:50 Temp 36.6 Pulse 100 Resp 22 B/P (MAP) 141/65 (90) Pulse Ox 95 O2 Delivery Room Air Capillary Refill : Height: 4'11.00" Weight: 199lbs. 1.6oz. 90.976195xo; 35.51 BMI Method:Stated General Appearance: WD/WN, mild distress Eyes: Bilateral Eye Normal Inspection, Bilateral Eye PERRL, Bilateral Eye EOMI HEENT: PERRL/EOMI, normal ENT inspection, pharynx normal Neck: full range of motion, supple, normal inspection Respiratory: respiratory distress (mild with respiratory rate of 25), decreased breath sounds, accessory muscle use (mild), wheezing (faint bilateral) Cardiovascular: normal peripheral pulses, regular rate, rhythm, tachycardia (heart rate in the low 100s on walking to the room, 90s at rest) Gastrointestinal: non tender, soft Neurologic/Psychiatric: alert, normal mood/affect, oriented x 3 Skin: normal color, warm/dry Focused Exam Lactate Level 10/28/19 23:56: Lactic Acid Level 2.38*H 10/29/19 02:09: Lactic Acid Level 1.55 Lactic Acid Level Laboratory Tests Test 10/28/19 23:56 10/29/19 02:09 Lactic Acid Level 2.38 MMOL/L (0.50-2.00) *H 1.55 MMOL/L (0.50-2.00) Progress/Results/Core Measures Suspected Sepsis SIRS Temperature: Pulse: Respiratory Rate: Laboratory Tests 10/28/19 00:14: White Blood Count 12.3H Blood Pressure / Mean: 10/28/19 23:56: Lactic Acid Level 2.38*H 10/29/19 02:09: Lactic Acid Level 1.55 Laboratory Tests 10/28/19 00:14: Creatinine 0.84, INR Comment 2.6H, Platelet Count 326, Total Bilirubin 0.2 Results/Orders Lab Results Laboratory Tests Test 10/28/19 00:14 10/28/19 23:56 10/29/19 00:08 10/29/19 02:09 Range/Units White Blood Count 12.3 H 4.3-11.0 10^3/uL Red Blood Count 4.59 4.35-5.85 10^6/uL Hemoglobin 12.9 11.5-16.0 G/DL Hematocrit 40 35-52 % Mean Corpuscular Volume 87 80-99 FL Mean Corpuscular Hemoglobin 28 25-34 PG Mean Corpuscular Hemoglobin Concent 32 32-36 G/DL Red Cell Distribution Width 14.4 10.0-14.5 % Platelet Count 326 130-400 10^3/uL Mean Platelet Volume 10.8 H 7.4-10.4 FL Neutrophils (%) (Auto) 61 42-75 % Lymphocytes (%) (Auto) 26 12-44 % Monocytes (%) (Auto) 8 0-12 % Eosinophils (%) (Auto) 4 0-10 % Basophils (%) (Auto) 1 0-10 % Neutrophils # (Auto) 7.5 1.8-7.8 X 10^3 Lymphocytes # (Auto) 3.3 1.0-4.0 X 10^3 Monocytes # (Auto) 1.0 0.0-1.0 X 10^3 Eosinophils # (Auto) 0.5 H 0.0-0.3 10^3/uL Basophils # (Auto) 0.1 0.0-0.1 10^3/uL Prothrombin Time 28.7 H 12.2-14.7 SEC INR Comment 2.6 H 0.8-1.4 Activated Partial Thromboplast Time 42 H 24-35 SEC Sodium Level 139 135-145 MMOL/L Potassium Level 4.2 3.6-5.0 MMOL/L Chloride Level 106 98-107 MMOL/L Carbon Dioxide Level 19 L 21-32 MMOL/L Anion Gap 14 5-14 MMOL/L Blood Urea Nitrogen 21 H 7-18 MG/DL Creatinine 0.84 0.60-1.30 MG/DL Estimat Glomerular Filtration Rate > 60 BUN/Creatinine Ratio 25 Glucose Level 162 H 70-105 MG/DL Calcium Level 9.4 8.5-10.1 MG/DL Corrected Calcium 9.4 8.5-10.1 MG/DL Total Bilirubin 0.2 0.1-1.0 MG/DL Aspartate Amino Transf (AST/SGOT) 33 5-34 U/L Alanine Aminotransferase (ALT/SGPT) 47 0-55 U/L Alkaline Phosphatase 119 40-136 U/L Troponin I < 0.028 <0.028 NG/ML Total Protein 7.0 6.4-8.2 GM/DL Albumin 4.0 3.2-4.5 GM/DL Lactic Acid Level 2.38 *H 1.55 0.50-2.00 MMOL/L Blood Gas Puncture Site LEFT RADIAL Blood Gas Patient Temperature 36.6 Arterial Blood pH 7.45 H 7.37-7.43 Arterial Blood Partial Pressure CO2 36 35-45 MMHG Arterial Blood Partial Pressure O2 81 79-93 MMHG Arterial Blood HCO3 25 23-27 MMOL/L Arterial Blood Total CO2 25.9 21.0-31.0 MMOL/L Arterial Blood Oxygen Saturation 97 94-100 % Arterial Blood Base Excess 1.1 -2.5-2.5 MMOL/L Reynaldo Test YES-POS Blood Gas Ventilator Setting NO Blood Gas Inspired Oxygen ROOM AIR Test 10/29/19 03:16 10/29/19 03:22 Range/Units Urine Color YELLOW Urine Clarity SL CLOUDY Urine pH 5.5 5-9 Urine Specific [place] 1.010 L 1.016-1.022 Urine Protein NEGATIVE NEGATIVE Urine Glucose (UA) NEGATIVE NEGATIVE Urine Ketones NEGATIVE NEGATIVE Urine Nitrite NEGATIVE NEGATIVE Urine Bilirubin NEGATIVE NEGATIVE Urine Urobilinogen 0.2 < = 1.0 MG/DL Urine Leukocyte Esterase NEGATIVE NEGATIVE Urine RBC (Auto) NEGATIVE NEGATIVE Urine RBC NONE /HPF Urine WBC NONE /HPF Urine Squamous Epithelial Cells 2-5 /HPF Urine Crystals NONE /LPF Urine Bacteria NEGATIVE /HPF Urine Casts NONE /LPF Urine Mucus SMALL H /LPF Urine Culture Indicated CULTURE PENDING Troponin I < 0.028 <0.028 NG/ML Micro Results Microbiology 10/28/19 Influenza Types A,B Antigen (JORGE) - Final, Complete My Orders Orders - ALEXYS CHARLTON Cbc With Automated Diff (10/28/19 23:54) Comprehensive Metabolic Panel (10/28/19 23:54) Blood Culture (10/28/19 23:54) Sputum Culture (10/28/19 23:54) Urinalysis (10/28/19 23:54) Urine Culture (10/28/19 23:54) Protime With Inr (10/28/19 23:54) Partial Thromboplastin Time (10/28/19 23:54) Ed Iv/Invasive Line Start (10/28/19 23:54) Ed Iv/Invasive Line Start (10/28/19 23:54) Vital Signs Adult Sepsis Patie Q15M (10/28/19 23:54) O2 (10/28/19 23:54) Remove Rings In Anticipation O (10/28/19 23:54) Lactic Acid Analyzer (10/28/19 23:54) Influenza A And B Antigens (10/28/19 23:54) Ceftriaxone For Iv Use (Rocephin For I (10/29/19 00:00) Azithromycin Injection (Zithromax Inject (10/29/19 00:00) Albuterol/Ipra Inhalation Soln (Duoneb I (10/29/19 00:00) Ed Iv/Invasive Line Start (10/28/19 23:54) Ns Iv 500 Ml (Sodium Chloride 0.9%) (10/28/19 23:54) Ns Iv 1000 Ml (Sodium Chloride 0.9%) (10/28/19 23:54) Svn Small Volume Nebulizer (10/28/19 23:54) Arterial Blood Gas (10/29/19 00:09) Continuous Ekg Monitoring (10/29/19 00:47) Ekg Tracing (10/29/19 00:47) Aspirin Chewable Tablet (Baby Aspirin Ch (10/29/19 01:00) Troponin I (10/28/19 00:14) Troponin I (10/29/19 03:15) Nitroglycerin 0.4 Mg Btl 25's (Nitrostat (10/29/19 02:00) Chest 1 View, Ap/Pa Only (10/29/19 ) Medications Given in ED Current Medications Medications Dose Ordered Sig/Kore[place] Route Start Time Stop Time Status Last Admin Dose Admin Albuterol/ Ipratropium 3 ml ONCE ONCE INH 10/29/19 00:00 10/29/19 00:01 DC 10/29/19 00:38 3 ML Aspirin 324 mg ONCE ONCE PO 10/29/19 01:00 10/29/19 01:01 DC 10/29/19 01:59 324 MG Azithromycin 500 mg/Sodium Chloride 250 ml @ 250 mls/hr ONCE ONCE IV 10/29/19 00:00 10/29/19 00:59 DC 10/29/19 00:25 250 MLS/HR Ceftriaxone Sodium 1000 mg/ Sterile Water 10 ml @ 200 mls/hr ONCE ONCE IV 10/29/19 00:00 10/29/19 00:02 DC 10/29/19 00:23 200 MLS/HR Sodium Chloride 500 ml @ 0 mls/hr Q0M ONCE IV 10/28/19 23:54 10/28/19 23:58 DC 10/29/19 00:22 500 MLS/HR Vital Signs/I&O 10/28/19 10/29/19 23:50 00:41 Temp 36.6 Pulse 100 Resp 22 B/P (MAP) 141/65 (90) Pulse Ox 95 95 O2 Delivery Room Air Capillary Refill : Progress Note #1: Time: 00:01 Progress Note Because of the heart rate above 90 and respiratory rate around 25 we have ini tiated a septic workup. We'll get an ABG. Her oxygen saturation is around 94% on room air. She has a good blood pressure 140/60. Plan to give her breathing treatment, check a chest x-ray and look for pneumonia versus upper respiratory tract/bronchitis versus COPD exacerbation. Rocephin and azithromycin. [place] body weight adjusted at 143 pounds so we'll give her 1500 cc which is more than 20 cc/kg. Influenza swab. Progress Note #2: Time: 00:45 Progress Note The patient reports to her teeth she's not having some left-sided chest pain. EKG and troponins were ordered. Echocardiogram from [address] Hawkins: EF of 60%. Prosthetic valve and aortic position appeared to be similar to the finding from 2015. Cardiac catheterization by Dr. Hawkins 2005: Critical aortic stenosis. 70% ostial and proximal left main stenosis with ventricular eyes and of the pressure dressing coronary angiogram. Otherwise nonobstructive disease. Progress Note #3: Time: 03:59 Progress Note Second troponin is negative. Again we have encouraged the patient to stay for an observation period and at this time she has agreed to do so. She's having no chest pain at this time. ECG Initial ECG Impression Date: Oct 29, 2019 Initial ECG Impression Time: 00:47 Initial ECG Rate: 85 Initial ECG Rhythm: Normal Sinus Initial ECG Intervals: Normal Initial ECG Impression: Normal Comment Normal sinus rhythm, left ventricular hypertrophy. No ST elevation or depression. Diagnostic Imaging Diagonstic Imaging: Xray Plain Films/CT/US/NM/MRI: chest (1v) Comments No acute cardiopulmonary process noted on one view chest x-ray. Reviewed: Reviewed by Me Departure Communication (Admissions) Time/Spoke to Admitting Phy: 04:00 Dr. Teague agrees to observe the patient. Lovenox and SCDs. Time/Spoke to Consulting Phy: 03:59 Dr. Hawkins, cardiology agrees to consult on the patient Impression Primary Impression: Angina pectoris Disposition: 09 ADMITTED INPATIENT Condition: Stable Admissions Decision to Admit Reason: Admit from ER (General) Decision to Admit/Date: Oct 29, 2019 Time/Decision to Admit Time: 03:40 Departure-Patient Inst. Referrals: [facility] (PCP) Primary Care Physician BHARAT MANCIA (Family) Primary Care Physician ALEXYS CHARLTON Oct 29, 2019 00:03
[2019-10-29 00:14] LABS: ABG BASE EXCESS 1.1 MMOL/L (-2.5-2.5); ABG OXYGEN SATURATION 97 % (94-100); ABG PCO2 36 MMHG (35-45); ABG PH 7.45 (7.37-7.43); ABG PO2 81 MMHG (79-93); ABG TCO2 25.9 MMOL/L (21.0-31.0); ALLENS TEST YES-POS; INSPIRED O2 ROOM AIR; PATIENT TEMP 36.6; VENTILATOR NO
[2019-10-29 00:26] LABS: BASOPHILS # (AUTO) 0.1 10^3/uL (0.0-0.1); BASOPHILS % (AUTO) 1 % (0-10); EOSINOPHILS # (AUTO) 0.5 10^3/uL (0.0-0.3); EOSINOPHILS % (AUTO) 4 % (0-10); HEMATOCRIT 40 % (35-52); HEMOGLOBIN 12.9 G/DL (11.5-16.0); LYMPHOCYTES # (AUTO) 3.3 X 10^3 (1.0-4.0); LYMPHOCYTES % (AUTO) 26 % (12-44); MEAN CORPUSCULAR HEMOGLOBIN 28 PG (25-34); MEAN CORPUSCULAR HGB CONC 32 G/DL (32-36); MEAN CORPUSCULAR VOLUME 87 FL (80-99); MEAN PLATELET VOLUME 10.8 FL (7.4-10.4); MONOCYTES % (AUTO) 8 % (0-12); NEUTROPHILS # (AUTO) 7.5 X 10^3 (1.8-7.8); NEUTROPHILS % (AUTO) 61 % (42-75); PLATELET COUNT 326 10^3/uL (130-400); RED CELL DISTRIBUTION WIDTH 14.4 % (10.0-14.5); WHITE BLOOD COUNT 12.3 10^3/uL (4.3-11.0)
[2019-10-29 00:39] LABS: INR 2.6 (0.8-1.4); PROTHROMBIN TIME PATIENT 28.7 SEC (12.2-14.7)
[2019-10-29 00:46] LABS: ALANINE AMINOTRANSFERASE 47 U/L (0-55); ALKALINE PHOSPHATASE 119 U/L (40-136); BILIRUBIN,TOTAL 0.2 MG/DL (0.1-1.0); BUN/CREATININE RATIO 25; CALCIUM 9.4 MG/DL (8.5-10.1); CARBON DIOXIDE 19 MMOL/L (21-32); CHLORIDE 106 MMOL/L (98-107); CREATININE SERUM 0.84 MG/DL (0.60-1.30); GFR ESTIMATED > 60; GLUCOSE 162 MG/DL (70-105); POTASSIUM 4.2 MMOL/L (3.6-5.0); SODIUM 139 MMOL/L (135-145)
[2019-10-29] MEDS ORDERED: ASPIRIN 81 MG CHEW (CHILDREN'S ASA) PO ONE (01:00)
--- NOTE | 2019-10-29 01:21 | NUR ---
Pt assisted to bed side commode at this time. Privacy provided, call light in reach.
[2019-10-29] MEDS ORDERED: NITROGLYCERIN 0.4 MG SL TABS BTL 25'S SL PRN ×2 (02:00→06:00)
[2019-10-29 03:30] LABS: BILIRUBIN,URINE NEGATIVE (NEGATIVE); CLARITY,URINE SL CLOUDY; COLOR,URINE YELLOW; GLUCOSE, URINE (UA) NEGATIVE (NEGATIVE); KETONES,URINE NEGATIVE (NEGATIVE); LEUKOCYTE ESTERASE ,URINE NEGATIVE (NEGATIVE); NITRITE,URINE NEGATIVE (NEGATIVE); PH,URINE 5.5 (5-9); PROTEIN,URINE NEGATIVE (NEGATIVE)
[2019-10-29 03:35] LABS: BACTERIA,URINE NEGATIVE /HPF
--- NOTE | 2019-10-29 04:40 | NUR ---
ABDELRAHMANBALAJI Lacho admitted to room CU4-1, with an admitting diagnosis of unstable angina, on 10/29/19 from ED via wheelchair, accompanied by staff and family.BALAJI QUICK introduced to surroundings, call light, bed controls, phone, TV, temperature control, lights, meal times, smoking policy, visitor policy, side rail policy, bathrooms and showers. Patient Rights given to patient in the handbook. BALAJI QUICK verbalizes understanding that [facility] is not responsible for the loss or damage to any personal effects or valuables that are kept in the patients posession during their hospitalization. BALAJI QUICK verbalizes understanding of Interdisciplinary Patient Education. Patient and/or family were informed about the Rapid Response Team and its purpose.
[2019-10-29] MEDS ORDERED: LORazepam INJ 2 MG/ML (ATIVAN) VIAL IV PRN (06:00)
[2019-10-29] MEDS ORDERED: morphine INJ 4 MG/ML 1 ML (VIAL/SYRINGE) IV PRN (06:00)
[2019-10-29] MEDS ORDERED: ANTACID SUSP 30 ML UDC (MYLANTA) PO PRN (06:00)
[2019-10-29] MEDS ORDERED: LACTATED RINGERS 1,000 ML IV SCH (06:00)
[2019-10-29] MEDS ORDERED: ONDANSETRON 4 MG/2 ML (SDV) Z0FRAN IV PRN (06:00)
[2019-10-29] MEDS ORDERED: ACETAMINOPHEN 500 MG TAB (TYLENOL) PO PRN (06:00)
[2019-10-29 06:19] LABS: BASOPHILS % (AUTO) 0 % (0-10); EOSINOPHILS # (AUTO) 0.4 10^3/uL (0.0-0.3); EOSINOPHILS % (AUTO) 3 % (0-10); HEMATOCRIT 35 % (35-52); HEMOGLOBIN 11.1 G/DL (11.5-16.0); LYMPHOCYTES # (AUTO) 2.6 X 10^3 (1.0-4.0); LYMPHOCYTES % (AUTO) 25 % (12-44); MEAN CORPUSCULAR HEMOGLOBIN 28 PG (25-34); MEAN CORPUSCULAR HGB CONC 32 G/DL (32-36); MEAN CORPUSCULAR VOLUME 88 FL (80-99); MEAN PLATELET VOLUME 10.4 FL (7.4-10.4); MONOCYTES # (AUTO) 0.7 X 10^3 (0.0-1.0); MONOCYTES % (AUTO) 7 % (0-12); NEUTROPHILS # (AUTO) 6.6 X 10^3 (1.8-7.8); NEUTROPHILS % (AUTO) 64 % (42-75); PLATELET COUNT 258 10^3/uL (130-400); RED CELL DISTRIBUTION WIDTH 14.2 % (10.0-14.5); WHITE BLOOD COUNT 10.3 10^3/uL (4.3-11.0)
[2019-10-29 06:29] LABS: PROTHROMBIN TIME PATIENT 32.4 SEC (12.2-14.7)
[2019-10-29 06:42] LABS: ALANINE AMINOTRANSFERASE 44 U/L (0-55); ALBUMIN 3.5 GM/DL (3.2-4.5); ALKALINE PHOSPHATASE 103 U/L (40-136); BILIRUBIN,TOTAL 0.2 MG/DL (0.1-1.0); BUN/CREATININE RATIO 23; CALCIUM 8.3 MG/DL (8.5-10.1); CARBON DIOXIDE 20 MMOL/L (21-32); CHLORIDE 111 MMOL/L (98-107); CREATININE SERUM 0.74 MG/DL (0.60-1.30); GFR ESTIMATED > 60; GLUCOSE 128 MG/DL (70-105); POTASSIUM 4.1 MMOL/L (3.6-5.0); SODIUM 140 MMOL/L (135-145); TOTAL PROTEIN 5.9 GM/DL (6.4-8.2)
--- NOTE | 2019-10-29 07:31 | Diagnostic Imaging Report ---
EXAMINATION: Chest 1 view HISTORY: Cough. Shortness of breath. Chest pain. COMPARISON: 11/30/2016. FINDINGS: There is marked cardiomegaly compared to the prior exam with central pulmonary vascular congestion and pulmonary edema. Post-CABG changes are noted. Lung volumes are low. No large pleural effusion or pneumothorax is seen. IMPRESSION: 1. Cardiomegaly and central pulmonary vascular congestion with pulmonary edema. Dictated by: Dictated on workstation # [id number]
[2019-10-29] MEDS ORDERED: ENOXAPARIN 40 MG/0.4 ML (LOVENOX) SYR SC SCH (09:00)
[2019-10-29] MEDS ORDERED: PANTOPRAZOLE 40 MG (PROTONIX) TAB PO SCH (09:00)
[2019-10-29] MEDS ORDERED: ASPIRIN E.C. 81 MG (ECOTRIN) TAB PO SCH (09:00)
[2019-10-29] MEDS ORDERED: ROSU20TA32 PO (09:26)
[2019-10-29] MEDS ORDERED: DOXY100C2 PO (09:26)
[2019-10-29] MEDS ORDERED: FURO40TA4 PO (09:26)
[2019-10-29] MEDS ORDERED: NF-ESOM40C PO (09:26)
[2019-10-29] MEDS ORDERED: FLUT16SP22 NS (09:26)
[2019-10-29] MEDS ORDERED: NAPR-915 PO (09:26)
[2019-10-29] MEDS ORDERED: MTP25TSR PO (09:26)
[2019-10-29] MEDS ORDERED: CETI10TA17 PO (09:35)
[2019-10-29] MEDS ORDERED: WARF4TAB70 PO (09:35)
[2019-10-29] MEDS ORDERED: WARF-47 PO (09:35)
[2019-10-29] MEDS ORDERED: ALBU2.5V4 NEB (09:35)
--- NOTE | 2019-10-29 09:37 | NUR ---
WENT OVER THE EXT MED HX WITH THE PATIENT AND SHE VERIFIED HOW SHE TAKES THEM. SHE STATES HER CURRENT WARFARIN DOSE IS 8MG EVERY DAY EXCEPT TUESDAY AND TUESDAY SHE TAKES 10MG. SHE FILLED DOXYCYCLINE BUT A COUPLE DAYS [facility]URDO FILLED A ZPAK. SHE STATES SHE HAS NOT BEEN TAKING THE DOXYCYCLINE AND SHE FINISHED THE ZPAK SO I DID NOT INCLUDE EITHER OF THEM ON THE MED REC.
--- NOTE | 2019-10-29 10:51 | Consultation-Cardiology ---
HPI-Cardiology Cardiology Consultation Date of Consultation 10/29/19 Date of Admission Time Seen by Provider: 10:49 Indication: Chest pain HPI 64-year-old lady with history of coronary artery disease, aortic valve replacement, hypertension hyperlipidemia. Has been having increasing shortness of breath and cough, nonproductive. Started to have some chest pain with coughing and deep inspiration. No palpitation. No syncope or near syncopal episodes. No claudication. On my evaluation today she appeared to be feeling better, denied neck pain, not significantly dyspneic. Denied any fever or chills. Home Medications & Allergies Allergies: Coded Allergies: Iodinated Contrast Media (Verified Allergy, Unknown, 05/28/06) Penicillins (Verified Allergy, Unknown, 05/29/06) tramadol (Unverified Allergy, Unknown, 01/22/14) vancomycin (Verified Allergy, Unknown, 05/29/06) Home Medication List Reviewed: Yes LBT-Onwvgc-Tbghkd Hx Patient Social History Alcohol Use: Denies Use Recreational Drug Use: No Smoking Status: Former Smoker Type Used: Cigarettes 2nd Hand Smoke Exposure: No Recent Foreign Travel: No Recent Infectious Disease Expo: No Recent Hopitalizations: No Immunizations Up To Date Tetanus Booster (TDap): Unknown Date of Influenza Vaccine: Jul 30, 2019 Past Medical History Discussed below Family Medical History Significant Family History: No Pertinent Family Hx Family Medical Hx Noncontributory Review of Systems-General Review of Systems Constitutional: chills; No diaphoresis; fever, malaise EENTM: No ear discharge, No ear pain Respiratory: cough, dyspnea on exertion, phlegm, short of breath, wheezing Cardiovascular: chest pain; No edema; Hx of Intervention Gastrointestinal: no symptoms reported, see HPI; No abdominal pain, No nausea Genitourinary: No discharge, No dysuria Musculoskeletal: No back pain, No joint pain Skin: No pruritus, No rash Psychiatric/Neurological: Denies Headache, Denies Numbness, Denies Paresthesia All Other Systems Reviewed Negative Unless Noted: Yes Reviewed Test Results Reviewed Test Results Lab Laboratory Tests Test 10/28/19 23:56 10/29/19 00:08 10/29/19 02:09 10/29/19 03:16 Range/Units Lactic Acid Level 2.38 *H 1.55 0.50-2.00 MMOL/L Blood Gas Puncture Site LEFT RADIAL Blood Gas Patient Temperature 36.6 Arterial Blood pH 7.45 H 7.37-7.43 Arterial Blood Partial Pressure CO2 36 35-45 MMHG Arterial Blood Partial Pressure O2 81 79-93 MMHG Arterial Blood HCO3 25 23-27 MMOL/L Arterial Blood Total CO2 25.9 21.0-31.0 MMOL/L Arterial Blood Oxygen Saturation 97 94-100 % Arterial Blood Base Excess 1.1 -2.5-2.5 MMOL/L Reynaldo Test YES-POS Blood Gas Ventilator Setting NO Blood Gas Inspired Oxygen ROOM AIR Urine Color YELLOW Urine Clarity SL CLOUDY Urine pH 5.5 5-9 Urine Specific [place] 1.010 L 1.016-1.022 Urine Protein NEGATIVE NEGATIVE Urine Glucose (UA) NEGATIVE NEGATIVE Urine Ketones NEGATIVE NEGATIVE Urine Nitrite NEGATIVE NEGATIVE Urine Bilirubin NEGATIVE NEGATIVE Urine Urobilinogen 0.2 < = 1.0 MG/DL Urine Leukocyte Esterase NEGATIVE NEGATIVE Urine RBC (Auto) NEGATIVE NEGATIVE Urine RBC NONE /HPF Urine WBC NONE /HPF Urine Squamous Epithelial Cells 2-5 /HPF Urine Crystals NONE /LPF Urine Bacteria NEGATIVE /HPF Urine Casts NONE /LPF Urine Mucus SMALL H /LPF Urine Culture Indicated CULTURE PENDING Test 10/29/19 03:22 10/29/19 06:10 Range/Units Troponin I < 0.028 < 0.028 <0.028 NG/ML White Blood Count 10.3 4.3-11.0 10^3/uL Red Blood Count 3.95 L 4.35-5.85 10^6/uL Hemoglobin 11.1 L 11.5-16.0 G/DL Hematocrit 35 35-52 % Mean Corpuscular Volume 88 80-99 FL Mean Corpuscular Hemoglobin 28 25-34 PG Mean Corpuscular Hemoglobin Concent 32 32-36 G/DL Red Cell Distribution Width 14.2 10.0-14.5 % Platelet Count 258 130-400 10^3/uL Mean Platelet Volume 10.4 7.4-10.4 FL Neutrophils (%) (Auto) 64 42-75 % Lymphocytes (%) (Auto) 25 12-44 % Monocytes (%) (Auto) 7 0-12 % Eosinophils (%) (Auto) 3 0-10 % Basophils (%) (Auto) 0 0-10 % Neutrophils # (Auto) 6.6 1.8-7.8 X 10^3 Lymphocytes # (Auto) 2.6 1.0-4.0 X 10^3 Monocytes # (Auto) 0.7 0.0-1.0 X 10^3 Eosinophils # (Auto) 0.4 H 0.0-0.3 10^3/uL Basophils # (Auto) 0.0 0.0-0.1 10^3/uL Prothrombin Time 32.4 H 12.2-14.7 SEC INR Comment 3.0 H 0.8-1.4 Sodium Level 140 135-145 MMOL/L Potassium Level 4.1 3.6-5.0 MMOL/L Chloride Level 111 H 98-107 MMOL/L Carbon Dioxide Level 20 L 21-32 MMOL/L Anion Gap 9 5-14 MMOL/L Blood Urea Nitrogen 17 7-18 MG/DL Creatinine 0.74 0.60-1.30 MG/DL Estimat Glomerular Filtration Rate > 60 BUN/Creatinine Ratio 23 Glucose Level 128 H 70-105 MG/DL Calcium Level 8.3 L 8.5-10.1 MG/DL Corrected Calcium 8.7 8.5-10.1 MG/DL Total Bilirubin 0.2 0.1-1.0 MG/DL Aspartate Amino Transf (AST/SGOT) 35 H 5-34 U/L Alanine Aminotransferase (ALT/SGPT) 44 0-55 U/L Alkaline Phosphatase 103 40-136 U/L Total Protein 5.9 L 6.4-8.2 GM/DL Albumin 3.5 3.2-4.5 GM/DL Physical Exam Physical Exam Vital Signs Vital Signs - First Documented 10/28/19 23:50 Temp 36.6 Pulse 100 Resp 22 B/P (MAP) 141/65 (90) Pulse Ox 95 O2 Delivery Room Air Capillary Refill : Less Than 3 Seconds Height, Weight, BMI Height: 4'11.00" Weight: 199lbs. 1.6oz. 90.251573mu; 41.51 BMI Method:Stated General Appearance: No Apparent Distress, WD/WN Eyes: Bilateral Eye Normal Inspection, Bilateral Eye PERRL, Bilateral Eye EOMI HEENT: PERRL/EOMI, TMs Normal, Normal ENT Inspection, Pharynx Normal, Moist Mucous Membranes Neck: Full Range of Motion, Normal Inspection, Non Tender, Supple, Carotid Bruit Respiratory: Chest Non Tender, Normal Breath Sounds, No Accessory Muscle Use, No Respiratory Distress Cardiovascular: Regular Rate, Rhythm, No Gallop, No JVD, Normal Peripheral Pulses, Systolic Murmur, Gallop/S3 Gastrointestinal: Normal Bowel Sounds, No Organomegaly, No Pulsatile Mass, Non Tender, Soft Back: Normal Inspection, No CVA Tenderness, No Vertebral Tenderness Extremity: Normal Capillary Refill, Normal Inspection, Normal Range of Motion, Non Tender, No Calf Tenderness, No Pedal Edema Neurologic/Psychiatric: Alert, Oriented x3, No Motor/Sensory Deficits, Normal Mood/Affect Skin: Normal Color, Warm/Dry Lymphatic: No Adenopathy A/P-Cardiology Admission Diagnosis Chest pain Coronary artery disease COPD Hypertension Assessment/Plan Chest pain, nonspecific etiology, mainly rip pain with coughing. Feeling better at this time, denied any active pain. Shortness of breath, cough, upper respiratory tract infection. History of COPD. Consult Dr. Farrar for evaluation. Coronary artery disease, history of CABG 2 in 2005 with BABB to LAD and vein graft RCA. Patient has been canceling her stress test, will need to have a stress test done as an outpatient. Aortic stenosis status post aortic valve replacement with mechanical valve in 2005. On chronic Coumadin therapy, Last 2-D echocardiogram January 2017 showed aortic valve with mod to severe aortic stenosis at the prosthetic valve, unchanged from 2015 study. I will evaluate 2-D echo Recurrent palpitation, occurring infrequently, reporting improvement. Continue to monitor Hypertension, restart home medication monitor blood pressure Hyperlipidemia, monitor lipids Carotid stenosis, continue to monitor Pulmonary hypertension with most recent PA pressure 35 mmHg, continue to monitor Granulomatous disease Okay for discharge from cardiology standpoint, follow-up as an outpatient Clinical Quality Measures DVT/VTE Risk/Contraindication: Risk Factor Score Per Nursin RFS Level Per Nursing on Admit: 2=Moderate LATRELL HUITRON MD Oct 29, 2019 10:50
--- NOTE | 2019-10-29 10:55 | Short Stay Summary-Hospitalist ---
History of Present Illness HPI/Chief Complaint Chief complaint: Chest pain HPI: This is a 64yoWF who presented with chest pain, placed in ICU 4, cardiology evaluated her to have no evidence to have acute coronary syndrome, Dr. Farrar will be consulted for slight congestion noted on exam but she was overall doing well and was ready for discharge, INR 3.0 will continue Coumadin and I restarted all of her home medications. Source: patient Exam Limitations: no limitations Date Seen 10/29/19 Time Seen by a Provider: 09:30 Attending Physician Saniya Teague DO [facility] Center/Se[facility] Referring Physician Date of Admission Oct 29, 2019 at 04:05 Home Medications & Allergies Home Medications Reviewed patient Home Medication Reconciliation performed by pharmacy medication reconciliations piano technician and/or nursing. Patients Allergies have been reviewed. Allergies Allergies Coded Allergies Iodinated Contrast Media (Verified Allergy, Unknown, 05/28/06) Penicillins (Verified Allergy, Unknown, 05/29/06) tramadol (Unverified Allergy, Unknown, 01/22/14) vancomycin (Verified Allergy, Unknown, 05/29/06) Past Hpbezpg-Mnwntb-Vzpdoa Hx Past Med/Social Hx: Reviewed Nursing Past Med/Soc Hx, Reviewed and Corrections made Patient Social History Marrital Status: single Employed/Student: unemployed Alcohol Use: Denies Use Recreational Drug Use: No Smoking Status: Former Smoker Former Smoker, Quit: Jan 15, 1974 Type Used: Cigarettes 2nd Hand Smoke Exposure: No Recent Foreign Travel: No Contact w/other who traveled: No Recent Hopitalizations: No Recent Infectious Disease Expo: No Immunizations Up To Date Tetanus Booster (TDap): Unknown Date of Influenza Vaccine: Jul 30, 2019 Seasonal Allergies Seasonal Allergies: No Past Medical History Surgeries: Appendectomy, Cardiac, CABG, Tubal Ligation, Valve Replacement Respiratory: COPD Cardiac: Coronary Artery Disease, Hypertension, Valvular Heart Disease : No Reproductive: No Genitourinary: UTI-Chronic Gastrointestinal: Gastroesophageal Reflux, Hiatal Hernia Musculoskeletal: Arthritis, Rheumatoid Arthritis History of Blood Disorders: No Family History No Pertinent Family Hx Review of Systems Constitutional: see HPI Cardiovascular: chest pain Physical Exam Physical Exam Vital Signs Vital Signs - First Documented 10/28/19 23:50 Temp 36.6 Pulse 100 Resp 22 B/P (MAP) 141/65 (90) Pulse Ox 95 O2 Delivery Room Air Capillary Refill : Less Than 3 Seconds Height, Weight, BMI Height: 4'11.00" Weight: 199lbs. 1.6oz. [id number]; 41.51 BMI Method:Stated General Appearance: No Apparent Distress, WD/WN, Chronically ill Eyes: Bilateral Eye Normal Inspection, Bilateral Eye PERRL, Bilateral Eye EOMI HEENT: PERRL/EOMI, Normal ENT Inspection, Pharynx Normal, Moist Mucous Membranes Neck: Full Range of Motion, Normal Inspection, Non Tender, Supple, Carotid Bruit Respiratory: Chest Non Tender, Normal Breath Sounds, No Accessory Muscle Use, No Respiratory Distress Cardiovascular: Regular Rate, Rhythm, No Gallop, No JVD, Normal Peripheral Pulses, Systolic Murmur, Gallop/S3 Gastrointestinal: Normal Bowel Sounds, No Organomegaly, No Pulsatile Mass, Non Tender, Soft Back: Normal Inspection, No CVA Tenderness, No Vertebral Tenderness Extremity: Normal Capillary Refill, Normal Inspection, Normal Range of Motion, Non Tender, No Calf Tenderness, No Pedal Edema Neurologic/Psychiatric: Alert, Oriented x3, No Motor/Sensory Deficits, Normal Mood/Affect Skin: Normal Color, Warm/Dry Lymphatic: No Adenopathy Results Results/Procedures Labs Laboratory Tests 10/29/19 06:10 Patient resulted labs reviewed. Short Stay Diagnosis Discharge Diagnosis-Short Stay Admission Diagnosis Chest pain Coumadin maintenance CAD Final Discharge Diagnosis Chest pain Coumadin maintenance CAD Conclusion Plan DC home if ok with Cardiology Diagnosis/Problems Diagnosis/Problems (1) Chest pain (2) History of Coumadin therapy Clinical Quality Measures DVT/VTE Risk/Contraindication: Risk Factor Score Per Nursin RFS Level Per Nursing on Admit: 2=Moderate SANIYA TEAGUE DO Oct 29, 2019 10:55
[2019-10-29] MEDS ORDERED: ASPI-983 PO (11:25)
[2019-10-29] MEDS ORDERED: RT-ALBUTEROL SULF 2.5 MG/3 ML PRE-MIX VIAL IH PRN ×2 (11:30)
[2019-10-29] MEDS ORDERED: FLUTICASONE NASAL SPRAY (FLONASE) 16 GM BTL NS PRN (11:30)
[2019-10-29] MEDS ORDERED: LORATADINE (CLARITIN) 10 MG TAB PO PRN (11:30)
--- NOTE | 2019-10-29 14:41 | Pulmonary Consultation ---
History of Present Illness History of Present Illness Date Seen by Provider: Oct 29, 2019 Time Seen by Provider: 14:36 Date of Admission Reason for Visit: Chest pain History of Present Illness 64yo with hx of CAD, aortic valve replacement presented to ED secondary to worseningd SOB, and nonproductive cough. Pt also complained of pleuritic CP. Denies palpitations, and syncope. Denies F/NS/C Allergies and Home Medications Allergies Coded Allergies: Iodinated Contrast Media (Verified Allergy, Unknown, 05/28/06) Penicillins (Verified Allergy, Unknown, 05/29/06) tramadol (Unverified Allergy, Unknown, 01/22/14) vancomycin (Verified Allergy, Unknown, 05/29/06) Home Medications Albuterol Sulfate 6.7 Gm Hfa.aer.ad, 2 PUFF IH Q6H PRN for SHORTNESS OF BREATH, (Reported) Albuterol Sulfate 2.5 Mg/3 Ml Vial.neb, 2.5 MG NEB Q8H PRN for SHORTNESS OF BREATH, (Reported) Aspirin 81 Mg Tablet.dr, 81 MG PO DAILY Prescribed by: DANIELA BURNS on 10/29/19 1125 Cetirizine HCl 10 Mg Tablet, 10 MG PO DAILY PRN for ALLERGIES, (Reported) Esomeprazole Magnesium 40 Mg Cap, 40 MG PO HS, (Reported) Fluticasone Propionate 16 Gm [place].susp, 1 SPRAY NS DAILY PRN for ALLERGIES, (Reported) Furosemide 40 Mg Tablet, 40 MG PO DAILY, (Reported) Metoprolol Succinate 25 Mg Tab.er.24h, 25 MG PO DAILY, (Reported) Naproxen 500 Mg Tablet, 500 MG PO BID PRN for PAIN-MILD (1-4), (Reported) Rosuvastatin Calcium 20 Mg Tablet, 20 MG PO DAILY, (Reported) Warfarin Sodium 4 Mg Tablet, 8 MG PO DAILY, (Reported) TAKES 2 (4MG) TABLET Warfarin Sodium 2 Mg Tablet, 2 MG PO Th, (Reported) TAKES AN ADDITIONAL 2MG TABLET ON THURSDAYS AND SATURDAYS ALONG WITH 8MG DAILY DOSE Past Wlrxudf-Ambwqa-Rgslax Hx Patient Social History Alcohol Use: Denies Use Recreational Drug Use: No Smoking Status: Former Smoker Type Used: Cigarettes Former Smoker, Quit: Jan 15, 1974 2nd Hand Smoke Exposure: No Recent Foreign Travel: No Contact w/Someone Who Travel: No Recent Infectious Disease Expo: No Recent Hopitalizations: No Physical Abuse: No Sexual Abuse: No Mistreated: No Fear: No Immunizations Up To Date Tetanus Booster (TDap): Unknown Date of Influenza Vaccine: Jul 30, 2019 Seasonal Allergies Seasonal Allergies: No Past Medical History Surgeries: Yes Appendectomy, Cardiac, CABG, Tubal Ligation, Valve Replacement Respiratory: Yes Asthma, Chronic Bronchitis, COPD Cardiac: Yes Coronary Artery Disease, Hypertension, Valvular Heart Disease Neurological: No : No Reproductive Disorders: No Genitourinary: Yes UTI-Chronic Gastrointestinal: Yes Gastroesophageal Reflux, Hiatal Hernia Musculoskeletal: Yes Arthritis, Rheumatoid Arthritis Endocrine: No HEENT: Yes (CHRONIC DENTAL PROBLEMS) Cancer: No Psychosocial: No Integumentary: No Blood Disorders: No Family Medical History No Pertinent Family Hx Review of Systems Time Seen by Provider: 14:51 Sepsis Event Evaluation Height, Weight, BMI Height: 4'11.00" Weight: 199lbs. 1.6oz. 90.792781jy; 41.51 BMI Method:Stated Exam Exam Vital Signs Date Time Temp Pulse Resp B/P (MAP) Pulse Ox O2 Delivery O2 Flow Rate FiO2 10/29/19 12:00 75 142/91 (108) 98 Room Air 10/29/19 12:00 36.6 10/29/19 11:38 Room Air 10/29/19 08:49 Room Air 10/29/19 08:28 Room Air 10/29/19 08:26 36.4 10/29/19 08:00 81 27 105/73 (84) 99 Room Air 10/29/19 07:00 73 10/29/19 06:00 71 12 121/72 (88) 96 Room Air 10/29/19 05:30 73 12 89/49 (62) 97 Room Air 10/29/19 05:15 76 11 105/77 (86) 97 Room Air 10/29/19 05:04 36.5 75 18 123/74 98 Room Air 10/29/19 05:00 75 20 101/75 (84) 98 Room Air 10/29/19 04:45 98 Room Air 10/29/19 04:43 75 10/29/19 04:42 36.5 76 18 123/74 (90) 98 Room Air 10/29/19 04:32 36.6 100 22 137/86 (90) 97 Room Air 10/29/19 00:41 95 10/28/19 23:50 36.6 100 22 141/65 (90) 95 Room Air I & O 10/29/19 07:00 Intake Total 1760 ml Output Total 0 ml Balance 1760 ml Height & Weight Height: 4'11.00" Weight: 199lbs. 1.6oz. 90.700200ti; 41.51 BMI Method:Stated General Appearance: No Apparent Distress, WD/WN HEENT: PERRL/EOMI, TMs Normal, Normal ENT Inspection, Pharynx Normal, Moist Mucous Membranes Neck: Full Range of Motion, Normal Inspection, Non Tender, Supple, Carotid Bruit Respiratory: Chest Non Tender, Normal Breath Sounds, No Accessory Muscle Use, No Respiratory Distress Cardiovascular: Regular Rate, Rhythm, No Gallop, No JVD, Normal Peripheral Pulses, Systolic Murmur, Gallop/S3 Capillary Refill: Less Than 3 Seconds Gastrointestinal: non tender, soft Extremity: Normal Capillary Refill, Normal Inspection, Normal Range of Motion, Non Tender, No Calf Tenderness, No Pedal Edema Neurologic/Psychiatric: Alert, Oriented x3, No Motor/Sensory Deficits, Normal Mood/Affect Skin: Normal Color, Warm/Dry Lymphatic: No Adenopathy Results Lab Laboratory Tests 10/28/19 00:14 10/29/19 06:10 Assessment/Plan Assessment/Plan COPDAE -Add Advair Prednisone taper Pulmonary edema -Pt is already on Lasix CP with CAD -Cardiology is following HTN Aortic stenosis s/p Aortic valve replacement 2005 -On coumadin therapy ROBIN COLLIER DO Oct 29, 2019 14:41
--- NOTE | 2019-10-29 15:31 | NUR ---
Initial visit: Engaged with the pt, her granddaughter, grandson and granddaughter's boyfriend. The pt is Orthodoxy. She expressed expectations of meeting Dr. Farrar and being told if she could be discharged today. I offered active listening as she shared it is difficult to be from her grandson while she is in the ICU (he is under the age of 12). She said he has been upset that he cannot see her and requested that I check on him. Pt's grandson was tearful, playing a game on his phone. He immediately announced that he was not allowed to see his grandmother. I offered active listening, validated his feelings, and encouraged positive coping. He demonstrated understanding and resumed activities on his phone while appearing reassured.
[2019-10-29] MEDS ORDERED: LORazepam INJ 2 MG/ML (ATIVAN) VIAL IVP PRN (15:45)
[2019-10-29] MEDS ORDERED: PRD10T PO (15:47)
--- NOTE | 2019-10-29 16:15 | NUR ---
BALAJI QUICK demonstrates understanding of discharge instructions and accurately returns instructions upon questioning. Copy of Post-Discharge Instructions and Medication Discharge Instructions given to PT. BALAJI QUICK is able to manage continuing needs after discharge. Patients belongings returned to PT. Skin dry and intact; no breakdown noted. Patient discharged from [facility] on 10/29/19 at 1615. BALAJI QUICK left floor via WC, accompanied by STAFF/FAMILY.
--- NOTE | 2019-10-29 16:16 | NUR ---
PREDNISONE TAPER CALLED INTO [facility] PER DR COLLIER'S ORDERS.
[2019-10-29] MEDS ORDERED: warFARin 5 MG (COUMADIN) TAB PO SCH (18:00)
[2019-10-29] MEDS ORDERED: warFARin 3 MG (COUMADIN) TAB PO SCH ×2 (18:00)
[2019-10-29] MEDS ORDERED: RT-ADVAIR HFA 115/21 MCG PER PUFF IH SCH (20:00)
[2019-10-29] MEDS ORDERED: NON-FORMULARY MEDICATION 1 EA EA (Esomeprazole Magnesium (Nexium) 40 MG) PO SCH (21:00)
[2019-10-30] MEDS ORDERED: ROSUVASTATIN 20 MG (CRESTOR) TABLET PO SCH (09:00)
[2019-10-30] MEDS ORDERED: predniSONE 10 MG TAB PO SCH (09:00)
[2019-10-30] MEDS ORDERED: FUROSEMIDE 40 MG (LASIX) TAB PO SCH (09:00)
[2019-11-01] MEDS ORDERED: warFARin 2 MG (COUMADIN) TAB PO SCH (11:30)
[2019-11-01] MEDS ORDERED: warFARin 10 MG (COUMADIN) TAB PO SCH (18:00)
== END 2019-10-29 16:15 | disposition home or self-care (01) ==
LOC: EDUNIT# 23:48 → ER 23:49 → ICU 10-29 04:05
PROVIDERS: ADMIT Internal Medicine; ATTEND Internal Medicine
DX: R07.9 Chest pain, unspecified (principal); I25.10 Atherosclerotic heart disease of native coronary artery without angina pectoris; J44.1 Chronic obstructive pulmonary disease with (acute) exacerbation; J06.9 Acute upper respiratory infection, unspecified; R00.2 Palpitations; I10 Essential (primary) hypertension; E78.5 Hyperlipidemia, unspecified; I65.29 Occlusion and stenosis of unspecified carotid artery; I27.20 Pulmonary hypertension, unspecified; D71 Functional disorders of polymorphonuclear neutrophils; K21.9 Gastro-esophageal reflux disease without esophagitis; M06.9 Rheumatoid arthritis, unspecified; M19.91 Primary osteoarthritis, unspecified site; I07.1 Rheumatic tricuspid insufficiency; Z87.891 Personal history of nicotine dependence; Z95.1 Presence of aortocoronary bypass graft; Z79.01 Long term (current) use of anticoagulants; Z95.4 Presence of other heart-valve replacement; Z99.81 Dependence on supplemental oxygen; Z88.0 Allergy status to penicillin
CPT/HCPCS: 36415; 71045; 80053; 81000; 82805; 83605; 84484; 85025; 85610; 85730; 87040; 87088; 87804; 93005; 93306; 94640; 94664

== ENCOUNTER 2019-11-01 14:12 | Emergency (ER) | payer MEDICARE, MEDICAID ==
[~2019-11-01] VITALS: Ht 152 cm; Wt 93.4 kg
[~2019-11-01 14:12] MED LIST changes: +ALBU2.5V4 NEB; +ASPI-983 PO; +CETI10TA17 PO; +FLUT16SP22 NS; +MTP25TSR PO; +NAPR-915 PO; +PRD10T PO; +ROSU20TA32 PO; +WARF-47 PO; +WARF4TAB70 PO
[2019-11-01] MEDS ORDERED: NS IV 1000 ML 1,000 ML IV STA (14:44)
--- NOTE | 2019-11-01 14:44 | ED Abdominal Pain ---
General Chief Complaint: Abdominal/GI Problems Stated Complaint: WEAKNESS;N/D Nursing Triage Note: PT STATES HAS HAD DIARRHEA SEVERAL TIMES PAST COUPLE DAYS AND IS WEAK Sepsis Screen: No Definite Risk Source of Information: Patient Exam Limitations: No Limitations History of Present Illness Date Seen by Provider: Nov 01, 2019 Time Seen by Provider: 14:41 Initial Comments 64-year-old female presents with diarrhea. Patient reports that she's been having it for a couple days. She also has a cough and states "every time she coughs she poops" patient denies any abdominal pain but does admit to some burning of her abdomen. No fevers chills shortness of breath. She is nauseated but has not vomited. She denies any urinary symptoms. Allergies and Home Medications Allergies Coded Allergies: Iodinated Contrast Media (Verified Allergy, Unknown, 05/28/06) Penicillins (Verified Allergy, Unknown, 05/29/06) tramadol (Unverified Allergy, Unknown, 01/22/14) vancomycin (Verified Allergy, Unknown, 05/29/06) Home Medications Albuterol Sulfate 6.7 Gm Hfa.aer.ad, 2 PUFF IH Q6H PRN for SHORTNESS OF BREATH, (Reported) Albuterol Sulfate 2.5 Mg/3 Ml Vial.neb, 2.5 MG NEB Q8H PRN for SHORTNESS OF BREATH, (Reported) Aspirin 81 Mg Tablet.dr, 81 MG PO DAILY Prescribed by: DANIELA BURNS on 10/29/19 1125 Cetirizine HCl 10 Mg Tablet, 10 MG PO DAILY PRN for ALLERGIES, (Reported) Ciprofloxacin HCl 500 Mg Tablet, 500 MG PO BID Prescribed by: SANDRA MALONEY on 11/01/191558 Diphenoxylate HCl/Atropine 1 Each Tablet, 1 EACH PO Q6H PRN for DIARRHEA Prescribed by: SANDRA MALONEY on 11/01/19 695 Esomeprazole Magnesium 40 Mg Cap, 40 MG PO HS, (Reported) Fluticasone Propionate 16 Gm [place].susp, 1 SPRAY NS DAILY PRN for ALLERGIES, (Reported) Furosemide 40 Mg Tablet, 40 MG PO DAILY, (Reported) Metoprolol Succinate 25 Mg Tab.er.24h, 25 MG PO DAILY, (Reported) Metronidazole 500 Mg Tablet, 500 MG PO Q8H Prescribed by: SANDRA MALONEY on 1/16/20 1559 Ondansetron 4 Mg Tab.rapdis, 4 MG PO Q8H PRN for NAUSEA/VOMITING Prescribed by: SANDRA MALONEY on 11/01/19 155 Prednisone 10 Mg Tab, 0 PO DAILY Prescribed by: PATRICIA GROVE on 10/29/19 1547 Rosuvastatin Calcium 20 Mg Tablet, 20 MG PO DAILY, (Reported) Warfarin Sodium 4 Mg Tablet, 8 MG PO DAILY, (Reported) TAKES 2 (4MG) TABLET Warfarin Sodium 2 Mg Tablet, 2 MG PO , (Reported) TAKES AN ADDITIONAL 2MG TABLET ON THURSDAYS AND SATURDAYS ALONG WITH 8MG DAILY DOSE Patient Home Medication List Home Medication List Reviewed: Yes Review of Systems Review of Systems Constitutional: No chills, No dizziness, No fever; weakness Respiratory: Cough; Denies Shortness of Air Cardiovascular: Denies Chest Pain, Denies Palpitations, Denies Syncope Gastrointestinal: Denies Abdominal Pain; Diarrhea, Nausea; Denies Vomiting Genitourinary: Denies Burning Musculoskeletal: no symptoms reported Skin: no symptoms reported Psychiatric/Neurological: No Symptoms Reported Past Ntgmnck-Zionoz-Uobgih Hx Past Med/Social Hx: Reviewed Nursing Past Med/Soc Hx Patient Social History Alcohol Use: Denies Use Recreational Drug Use: No Smoking Status: Former Smoker Type Used: Cigarettes Former Smoker, Quit: Jan 15, 1974 2nd Hand Smoke Exposure: No Recent Foreign Travel: No Contact w/Someone Who Travel: No Recent Infectious Disease Expo: No Recent Hopitalizations: Yes (ABD PAIN) Immunizations Up To Date Tetanus Booster (TDap): Unknown Date of Influenza Vaccine: Jul 30, 2019 Seasonal Allergies Seasonal Allergies: No Past Medical History Surgeries: Yes Appendectomy, Cardiac, CABG, Tubal Ligation, Valve Replacement Respiratory: Yes Asthma, Chronic Bronchitis, COPD Cardiac: Yes Coronary Artery Disease, Hypertension, Valvular Heart Disease Neurological: No Reproductive Disorders: No Genitourinary: Yes UTI-Chronic Gastrointestinal: Yes Gastroesophageal Reflux, Hiatal Hernia Musculoskeletal: Yes Arthritis, Rheumatoid Arthritis Endocrine: No HEENT: Yes (CHRONIC DENTAL PROBLEMS) Cancer: No Psychosocial: No Integumentary: No Blood Disorders: No Family Medical History No Pertinent Family Hx Physical Exam Vital Signs Vital Signs - First Documented 11/01/19 14:21 Temp 37.3 Pulse 107 Resp 18 B/P (MAP) 113/78 (90) Pulse Ox 97 O2 Delivery Room Air Capillary Refill : Less Than 3 Seconds Height/Weight/BMI Height: 4'11.00" Weight: 199lbs. 1.6oz. 90.549048xx; 40.00 BMI Method:Stated General Appearance: WD/WN, no apparent distress Respiratory: chest non-tender, lungs clear, normal breath sounds Cardiovascular: normal peripheral pulses, regular rate, rhythm Gastrointestinal: non tender, soft Extremities: normal range of motion, non-tender Back: normal inspection, no CVA tenderness Neurologic/Psychiatric: jewel inserter II-XII nml as tested, no motor/sensory deficits, normal mood/affect, oriented x 3 Skin: normal color, warm/dry Progress/Results/Core Measures Results/Orders Lab Results Laboratory Tests Test 11/01/19 14:45 Range/Units White Blood Count 12.7 H 4.3-11.0 10^3/uL Red Blood Count 5.01 4.35-5.85 10^6/uL Hemoglobin 14.0 # 11.5-16.0 G/DL Hematocrit 44 35-52 % Mean Corpuscular Volume 87 80-99 FL Mean Corpuscular Hemoglobin 28 25-34 PG Mean Corpuscular Hemoglobin Concent 32 32-36 G/DL Red Cell Distribution Width 14.9 H 10.0-14.5 % Platelet Count 382 130-400 10^3/uL Mean Platelet Volume 10.5 H 7.4-10.4 FL Neutrophils (%) (Auto) 86 H 42-75 % Lymphocytes (%) (Auto) 5 L 12-44 % Monocytes (%) (Auto) 8 0-12 % Eosinophils (%) (Auto) 1 0-10 % Basophils (%) (Auto) 0 0-10 % Neutrophils # (Auto) 10.9 H 1.8-7.8 X 10^3 Lymphocytes # (Auto) 0.7 L 1.0-4.0 X 10^3 Monocytes # (Auto) 1.0 0.0-1.0 X 10^3 Eosinophils # (Auto) 0.1 0.0-0.3 10^3/uL Basophils # (Auto) 0.0 0.0-0.1 10^3/uL Neutrophils % (Manual) 72 % Lymphocytes % (Manual) 10 % Monocytes % (Manual) 5 % Eosinophils % (Manual) 1 % Basophils % (Manual) 0 % Band Neutrophils 12 % Anisocytosis SLIGHT Sodium Level 139 135-145 MMOL/L Potassium Level 4.1 3.6-5.0 MMOL/L Chloride Level 105 98-107 MMOL/L Carbon Dioxide Level 21 21-32 MMOL/L Anion Gap 13 5-14 MMOL/L Blood Urea Nitrogen 34 H 7-18 MG/DL Creatinine 0.87 0.60-1.30 MG/DL Estimat Glomerular Filtration Rate > 60 BUN/Creatinine Ratio 39 Glucose Level 158 H 70-105 MG/DL Calcium Level 8.5 8.5-10.1 MG/DL Corrected Calcium 8.6 8.5-10.1 MG/DL Total Bilirubin 0.4 0.1-1.0 MG/DL Aspartate Amino Transf (AST/SGOT) 151 H 5-34 U/L Alanine Aminotransferase (ALT/SGPT) 112 H 0-55 U/L Alkaline Phosphatase 98 40-136 U/L Total Protein 6.6 6.4-8.2 GM/DL Albumin 3.9 3.2-4.5 GM/DL Lipase 17 8-78 U/L Micro Results Microbiology 11/01/19 Influenza Types A,B Antigen (JORGE) - Final, Complete My Orders Orders - SANDRA MALONEY DO Comprehensive Metabolic Panel (11/01/19 14:44) Lipase (11/01/19 14:44) Ed Iv/Invasive Line Start (11/01/19 14:44) Acute Abd Series (11/01/19 14:44) Cbc With Automated Diff (11/01/19 14:44) Ondansetron Injection (Zofran Injectio (11/01/19 14:45) Ns Iv 1000 Ml (Sodium Chloride 0.9%) (11/01/19 14:44) Influenza A And B Antigens (11/01/19 14:44) Manual Differential (11/01/19 14:45) Medications Given in ED Current Medications Medications Dose Ordered Sig/[place]y Route Start Time Stop Time Status Last Admin Dose Admin Ondansetron HCl 4 mg ONCE ONCE IVP 11/01/19 14:45 11/01/19 14:46 DC 11/01/19 14:55 4 MG Vital Signs/I&O 11/01/19 14:21 Temp 37.3 Pulse 107 Resp 18 B/P (MAP) 113/78 (90) Pulse Ox 97 O2 Delivery Room Air Blood Pressure Mean: 90 Departure Impression Primary Impression: Gastroenteritis Disposition: 01 HOME, SELF-CARE Condition: Stable Departure-Patient Inst. Referrals: [facility] (PCP) Primary Care Physician BHARAT MANCIA (Family) Primary Care Physician Patient Instructions: Viral Gastroenteritis, Adult (DC) Add. Discharge Instructions: Emergency department focuses on treating and ruling out life-threatening diseases. Whenever possible, a diagnosis is given. However, most patients are given an impression based on their history, physical exam, and workup during your brief time in the ER. Information about probable diagnosis and other educational material has been provided. Please take the time to read and understand this information. It is very important that you follow up with a physician as discussed during the visit today. Failure to adhere to your follow-up instructions may lead to severe disability, injury, or so please make sure to keep your appointments or obtain one as requested. Please keep in mind the emergency department is not designed to your primary care or "family doctor" and nonurgent issues are best evaluated by an outpatient physician All discharge instructions reviewed with patient and/or family. Voiced understanding. Scripts Metronidazole (Flagyl) 500 Mg Tablet 500 MG PO Q8H, #21 TAB Prov: TOM MALONEYR L DO 11/01/19 Ondansetron (Ondansetron Odt) 4 Mg Tab.rapdis 4 MG PO Q8H PRN for NAUSEA/VOMITING, #14 TAB Prov: AMARASANDRA L DO 11/01/19 Ciprofloxacin HCl (Ciprofloxacin HCl) 500 Mg Tablet 500 MG PO BID, #14 TAB Prov: TOM MALONEYR L DO 20 Diphenoxylate HCl/Atropine (Lomotil 2.5-0.025 mg Tablet) 1 Each Tablet 1 EACH PO Q6H PRN for DIARRHEA, #10 TAB Prov: MALONEYSANDRA L DO 11/01/19 TOM MALONEYR L DO Nov 01, 2019 14:44
[2019-11-01] MEDS ORDERED: ONDANSETRON 4 MG/2 ML (SDV) Z0FRAN IVP ONE (14:45)
[2019-11-01 14:57] LABS: BASOPHILS % (AUTO) 0 % (0-10); EOSINOPHILS # (AUTO) 0.1 10^3/uL (0.0-0.3); EOSINOPHILS % (AUTO) 1 % (0-10); HEMATOCRIT 44 % (35-52); LYMPHOCYTES # (AUTO) 0.7 X 10^3 (1.0-4.0); LYMPHOCYTES % (AUTO) 5 % (12-44); MEAN CORPUSCULAR HEMOGLOBIN 28 PG (25-34); MEAN CORPUSCULAR HGB CONC 32 G/DL (32-36); MEAN CORPUSCULAR VOLUME 87 FL (80-99); MEAN PLATELET VOLUME 10.5 FL (7.4-10.4); MONOCYTES % (AUTO) 8 % (0-12); NEUTROPHILS # (AUTO) 10.9 X 10^3 (1.8-7.8); NEUTROPHILS % (AUTO) 86 % (42-75); PLATELET COUNT 382 10^3/uL (130-400); RED CELL DISTRIBUTION WIDTH 14.9 % (10.0-14.5); WHITE BLOOD COUNT 12.7 10^3/uL (4.3-11.0)
[2019-11-01 15:24] LABS: ANISOCYTOSIS SLIGHT; BAND NEUTROPHILS 12 %; BASOPHILS % (MANUAL) 0 %; EOSINOPHILS % (MANUAL) 1 %; LYMPHOCYTES % (MANUAL) 10 %; MONOCYTES % (MANUAL) 5 %; NEUTROPHILS % (MANUAL) 72 %
[2019-11-01 15:25] LABS: ALANINE AMINOTRANSFERASE 112 U/L (0-55); ALBUMIN 3.9 GM/DL (3.2-4.5); ALKALINE PHOSPHATASE 98 U/L (40-136); BILIRUBIN,TOTAL 0.4 MG/DL (0.1-1.0); BUN/CREATININE RATIO 39; CALCIUM 8.5 MG/DL (8.5-10.1); CARBON DIOXIDE 21 MMOL/L (21-32); CHLORIDE 105 MMOL/L (98-107); CREATININE SERUM 0.87 MG/DL (0.60-1.30); GFR ESTIMATED > 60; GLUCOSE 158 MG/DL (70-105); LIPASE 17 U/L (8-78); POTASSIUM 4.1 MMOL/L (3.6-5.0); SODIUM 139 MMOL/L (135-145); TOTAL PROTEIN 6.6 GM/DL (6.4-8.2)
[2019-11-01] MEDS ORDERED: CIPR500T4 PO (15:59)
[2019-11-01] MEDS ORDERED: DIPH1TAB PO (15:59)
[2019-11-01] MEDS ORDERED: METR500T PO (15:59)
[2019-11-01] MEDS ORDERED: ONDA4TAB11 PO (15:59)
--- NOTE | 2019-11-01 15:59 | Diagnostic Imaging Report ---
INDICATION: Cough and weakness. TIME OF EXAM: 3:44 p.m. FINDINGS: Changes of median sternotomy and CABG are noted. Nodular density in the right lung base is stable. No infiltrates are seen. No free air is identified. The bowel gas pattern appears nonobstructed. No pathologic calcifications are seen. IMPRESSION: No acute abnormality is detected. Dictated by: Dictated on workstation # [id number]
[2019-11-01 16:28] VITALS: BP 115/80
== END 2019-11-01 16:28 | disposition home or self-care (01) ==
LOC: EDUNIT# 14:12 → ER 14:13
DX: K52.9 Noninfective gastroenteritis and colitis, unspecified (principal); J44.9 Chronic obstructive pulmonary disease, unspecified; I10 Essential (primary) hypertension; I25.10 Atherosclerotic heart disease of native coronary artery without angina pectoris; K21.9 Gastro-esophageal reflux disease without esophagitis; M06.9 Rheumatoid arthritis, unspecified; Z87.440 Personal history of urinary (tract) infections; Z88.0 Allergy status to penicillin; Z88.1 Allergy status to other antibiotic agents; Z91.041 Radiographic dye allergy status; Z88.5 Allergy status to narcotic agent; Z79.82 Long term (current) use of aspirin; Z79.51 Long term (current) use of inhaled steroids; Z79.01 Long term (current) use of anticoagulants; Z87.891 Personal history of nicotine dependence; Z95.1 Presence of aortocoronary bypass graft; Z90.49 Acquired absence of other specified parts of digestive tract; Z95.4 Presence of other heart-valve replacement
CPT/HCPCS: 36415; 74022; 80053; 83690; 85007; 85027; 87804; 96361; 96374

== ENCOUNTER 2021-03-20 13:07 | Emergency (ER) | payer MEDICARE, MEDICAID ==
[~2021-03-20] VITALS: Ht 149.9 cm; Wt 88.5 kg
[~2021-03-20 13:07] MED LIST changes: +ASPI-1238 PO; -ASPI-983 PO; -CIPR500T4 PO; +CIPR500T5 PO; +DIPH1TAB PO; -LIDO15SO2; +LIDO20SO23; +ONDA4TAB11 PO; +WARF4TAB3 PO; -WARF4TAB70 PO
[2021-03-20] MEDS ORDERED: NS IV 500 ML 500 ML IV SCH (13:30)
[2021-03-20] MEDS ORDERED: KETOROLAC 30 MG/ML VIAL IVP ONE (13:30)
--- NOTE | 2021-03-20 13:33 | ED General ---
General Stated Complaint: URINATING BLOOD/ PAIN IN HER STOMACH Source of Information: Patient Exam Limitations: No Limitations History of Present Illness Date Seen by Provider: Mar 20, 2021 Time Seen by Provider: 13:32 Initial Comments To ER with suprapubic abdominal pain as well as hematuria onset this morning. No nausea no vomiting no fevers. She is on Coumadin for a mechanical heart valve. Timing/Duration: 4-6 Hours Severity: Moderate Associated Systoms: Denies Symptoms Allergies and Home Medications Allergies Coded Allergies: Iodinated Contrast Media (Verified Allergy, Unknown, 05/28/06) Penicillins (Verified Allergy, Unknown, 05/29/06) tramadol (Unverified Allergy, Unknown, 01/22/14) vancomycin (Verified Allergy, Unknown, 05/29/06) Home Medications Albuterol Sulfate 6.7 Gm Hfa.aer.ad, 2 PUFF IH Q6H PRN for SHORTNESS OF BREATH, (Reported) Albuterol Sulfate 2.5 Mg/3 Ml Vial.neb, 2.5 MG NEB Q8H PRN for SHORTNESS OF BREATH, (Reported) Aspirin 81 Mg Tablet.dr, 81 MG PO DAILY Prescribed by: DANIELA BURNS on 10/29/19 1125 Cetirizine HCl 10 Mg Tablet, 10 MG PO DAILY PRN for ALLERGIES, (Reported) Ciprofloxacin HCl 500 Mg Tablet, 500 MG PO BID Prescribed by: SANDRA MALONEY on 11/01/191558 Diphenoxylate HCl/Atropine 1 Each Tablet, 1 EACH PO Q6H PRN for DIARRHEA Prescribed by: SANDRA MALONEY on 11/01/191558 Esomeprazole Magnesium 40 Mg Cap, 40 MG PO HS, (Reported) Fluticasone Propionate 16 Gm [place].susp, 1 SPRAY NS DAILY PRN for ALLERGIES, (Reported) Furosemide 40 Mg Tablet, 40 MG PO DAILY, (Reported) Metoprolol Succinate 25 Mg Tab.er.24h, 25 MG PO DAILY, (Reported) Metronidazole 500 Mg Tablet, 500 MG PO Q8H Prescribed by: SANDRA MALONEY on 11/01/191558 Ondansetron 4 Mg Tab.rapdis, 4 MG PO Q8H PRN for NAUSEA/VOMITING Prescribed by: SANDRA MALONEY on 11/01/191558 Prednisone 10 Mg Tab, 0 PO DAILY Prescribed by: PATRICIA GROVE on 10/29/19 1547 Rosuvastatin Calcium 20 Mg Tablet, 20 MG PO DAILY, (Reported) Warfarin Sodium 4 Mg Tablet, 8 MG PO DAILY, (Reported) TAKES 2 (4MG) TABLET Warfarin Sodium 2 Mg Tablet, 2 MG PO Th, (Reported) TAKES AN ADDITIONAL 2MG TABLET ON THURSDAYS AND SATURDAYS ALONG WITH 8MG DAILY DOSE Patient Home Medication List Home Medication List Reviewed: Yes Review of Systems Review of Systems Constitutional: see HPI EENTM: see HPI Respiratory: no symptoms reported Cardiovascular: no symptoms reported Genitourinary: see HPI Musculoskeletal: no symptoms reported Skin: no symptoms reported Psychiatric/Neurological: No Symptoms Reported Hematologic/Lymphatic: No Symptoms Reported Past Lgxqwlu-Egfpnk-Vddacg Hx Patient Social History Type Used: Cigarettes Former Smoker, Quit: Jan 15, 1974 2nd Hand Smoke Exposure: No Recent Hopitalizations: Yes (ABD PAIN) Immunizations Up To Date Tetanus Booster (TDap): Unknown Date of Influenza Vaccine: Jul 30, 2019 Seasonal Allergies Seasonal Allergies: No Past Medical History Surgeries: Yes Appendectomy, Cardiac, CABG, Tubal Ligation, Valve Replacement Respiratory: Yes Asthma, Chronic Bronchitis, COPD Cardiac: Yes Coronary Artery Disease, Hypertension, Valvular Heart Disease Neurological: No Reproductive Disorders: No Genitourinary: Yes UTI-Chronic Gastrointestinal: Yes Gastroesophageal Reflux, Hiatal Hernia Musculoskeletal: Yes Arthritis, Rheumatoid Arthritis Endocrine: No HEENT: Yes (CHRONIC DENTAL PROBLEMS) Cancer: No Psychosocial: No Integumentary: No Blood Disorders: No Family Medical History No Pertinent Family Hx Physical Exam Vital Signs Capillary Refill : Height, Weight, BMI Height: 4'11.00" Weight: 199lbs. 1.6oz. 90.631985nd; 40.00 BMI Method:Stated General Appearance: No Apparent Distress, WD/WN, Obese Eyes: Bilateral Eye Normal Inspection, Bilateral Eye PERRL, Bilateral Eye EOMI Neck: Full Range of Motion, Normal Inspection Respiratory: No Accessory Muscle Use, No Respiratory Distress Gastrointestinal: Normal Bowel Sounds, Soft, Tenderness (suprapubic) Extremity: Normal Capillary Refill, Normal Inspection Neurologic/Psychiatric: Alert, Oriented x3 Skin: Normal Color, Warm/Dry Progress/Results/Core Measures Suspected Sepsis SIRS Temperature: Pulse: Respiratory Rate: Laboratory Tests 03/20/21 13:20: White Blood Count 11.9H Blood Pressure / Mean: Laboratory Tests 03/20/21 13:20: Creatinine 0.85, INR Comment 1.1, Platelet Count 317, Total Bilirubin 0.3 Results/Orders Lab Results Laboratory Tests Test 03/20/21 13:17 03/20/21 13:20 Range/Units Urine Color ORANGE Urine Clarity CLOUDY Urine pH 6.0 5-9 Urine Specific [place] >=1.030 1.016-1.022 Urine Protein 3+ H NEGATIVE Urine Glucose (UA) NEGATIVE NEGATIVE Urine Ketones NEGATIVE NEGATIVE Urine Nitrite POSITIVE H NEGATIVE Urine Bilirubin 1+ H NEGATIVE Urine Urobilinogen 2.0 < = 1.0 MG/DL Urine Leukocyte Esterase TRACE H NEGATIVE Urine RBC (Auto) 3+ H NEGATIVE Urine RBC TNTC H /HPF Urine WBC 5-10 H /HPF Urine Squamous Epithelial Cells 2-5 /HPF Urine Crystals NONE /LPF Urine Bacteria FEW H /HPF Urine Casts NONE /LPF Urine Mucus NEGATIVE /LPF Urine Culture Indicated YES White Blood Count 11.9 H 4.3-11.0 10^3/uL Red Blood Count 4.24 3.80-5.11 10^6/uL Hemoglobin 11.9 11.5-16.0 g/dL Hematocrit 37 35-52 % Mean Corpuscular Volume 87 80-99 fL Mean Corpuscular Hemoglobin 28 25-34 pg Mean Corpuscular Hemoglobin Concent 32 32-36 g/dL Red Cell Distribution Width 13.9 10.0-14.5 % Platelet Count 317 130-400 10^3/uL Mean Platelet Volume 10.7 9.0-12.2 fL Immature Granulocyte % (Auto) 0 % Neutrophils (%) (Auto) 65 42-75 % Lymphocytes (%) (Auto) 23 12-44 % Monocytes (%) (Auto) 7 0-12 % Eosinophils (%) (Auto) 4 0-10 % Basophils (%) (Auto) 1 0-10 % Neutrophils # (Auto) 7.7 1.8-7.8 10^3/uL Lymphocytes # (Auto) 2.8 1.0-4.0 10^3/uL Monocytes # (Auto) 0.8 0.0-1.0 10^3/uL Eosinophils # (Auto) 0.5 H 0.0-0.3 10^3/uL Basophils # (Auto) 0.1 0.0-0.1 10^3/uL Immature Granulocyte # (Auto) 0.1 0.0-0.1 10^3/uL Prothrombin Time 14.8 H 12.2-14.7 SEC INR Comment 1.1 0.8-1.4 Sodium Level 137 135-145 MMOL/L Potassium Level 4.1 3.6-5.0 MMOL/L Chloride Level 105 98-107 MMOL/L Carbon Dioxide Level 23 21-32 MMOL/L Anion Gap 9 5-14 MMOL/L Blood Urea Nitrogen 20 H 7-18 MG/DL Creatinine 0.85 0.60-1.30 MG/DL Estimat Glomerular Filtration Rate > 60 BUN/Creatinine Ratio 24 Glucose Level 205 H 70-105 MG/DL Calcium Level 9.5 8.5-10.1 MG/DL Corrected Calcium 9.6 8.5-10.1 MG/DL Total Bilirubin 0.3 0.1-1.0 MG/DL Aspartate Amino Transf (AST/SGOT) 36 H 5-34 U/L Alanine Aminotransferase (ALT/SGPT) 40 0-55 U/L Alkaline Phosphatase 109 40-136 U/L Total Protein 6.9 6.4-8.2 GM/DL Albumin 3.9 3.2-4.5 GM/DL My Orders Orders - [facility] REGISTRAR Cbc With Automated Diff (03/20/21 13:30) Comprehensive Metabolic Panel (03/20/21 13:30) Protime With Inr (03/20/21 13:30) Ua Culture If Indicated (03/20/21 13:30) Ct Abd/Pelvis Wo(Kidney Stone) (03/20/21 13:30) Ed Iv/Invasive Line Start (03/20/21 13:30) Ketorolac Injection (Toradol Injection) (03/20/21 13:30) Ns Iv 500 Ml (Sodium Chloride 0.9%) (03/20/21 13:30) Urine Culture (03/20/21 13:17) Medications Given in ED Current Medications Medications Dose Ordered Sig/Kore[place] Route Start Time Stop Time Status Last Admin Dose Admin Ketorolac Tromethamine 15 mg ONCE ONCE IVP 03/20/21 13:30 03/20/21 13:32 DC 03/20/21 13:38 15 MG Vital Signs/I&O Capillary Refill : Departure Communication (Admissions) She is subtherapeutic on her INR. Given the hematuria however I will not bridge her with Lovenox. She states that she ran out of her medications and just got them refilled today and restarted today. Impression Primary Impression: UTI (urinary tract infection) Disposition: HOME, SELF-CARE Condition: Stable Departure-Patient Inst. Decision time for Depature: 14:52 Referrals: [facility] (PCP) Primary Care Physician BHARAT MANCIA (Family) Primary Care Physician Patient Instructions: Urinary Tract Infection, Adult (DC) Add. Discharge Instructions: 1. Increase your fluid intake 2. Follow-up with your doctor next week 3. Antibiotics as directed Scripts Phenazopyridine HCl (Pyridium) 100 Mg Tablet 100 MG PO TID, #9 TAB Prov: [facility] [employer] REGISTRAR 03/20/21 Cefuroxime Axetil (Cefuroxime) 500 Mg Tablet 500 MG PO BID, #10 TAB Prov: COREY DIAL APRN 03/20/21 C[facility] D[facility] APRN Mar 20, 2021 13:33
[2021-03-20 13:38] LABS: BASOPHILS # (AUTO) 0.1 10^3/uL (0.0-0.1); BASOPHILS % (AUTO) 1 % (0-10); EOSINOPHILS # (AUTO) 0.5 10^3/uL (0.0-0.3); EOSINOPHILS % (AUTO) 4 % (0-10); HEMATOCRIT 37 % (35-52); HEMOGLOBIN 11.9 g/dL (11.5-16.0); LYMPHOCYTES # (AUTO) 2.8 10^3/uL (1.0-4.0); LYMPHOCYTES % (AUTO) 23 % (12-44); MEAN CORPUSCULAR HEMOGLOBIN 28 pg (25-34); MEAN CORPUSCULAR HGB CONC 32 g/dL (32-36); MEAN CORPUSCULAR VOLUME 87 fL (80-99); MEAN PLATELET VOLUME 10.7 fL (9.0-12.2); MONOCYTES # (AUTO) 0.8 10^3/uL (0.0-1.0); MONOCYTES % (AUTO) 7 % (0-12); NEUTROPHILS # (AUTO) 7.7 10^3/uL (1.8-7.8); NEUTROPHILS % (AUTO) 65 % (42-75); PLATELET COUNT 317 10^3/uL (130-400); WHITE BLOOD COUNT 11.9 10^3/uL (4.3-11.0)
[2021-03-20 13:42] LABS: INR 1.1 (0.8-1.4); PROTHROMBIN TIME PATIENT 14.8 SEC (12.2-14.7)
[2021-03-20 13:50] LABS: ALANINE AMINOTRANSFERASE 40 U/L (0-55); ALBUMIN 3.9 GM/DL (3.2-4.5); ALKALINE PHOSPHATASE 109 U/L (40-136); BILIRUBIN,TOTAL 0.3 MG/DL (0.1-1.0); BUN/CREATININE RATIO 24; CALCIUM 9.5 MG/DL (8.5-10.1); CARBON DIOXIDE 23 MMOL/L (21-32); CHLORIDE 105 MMOL/L (98-107); CREATININE SERUM 0.85 MG/DL (0.60-1.30); GFR ESTIMATED > 60; GLUCOSE 205 MG/DL (70-105); POTASSIUM 4.1 MMOL/L (3.6-5.0); SODIUM 137 MMOL/L (135-145); TOTAL PROTEIN 6.9 GM/DL (6.4-8.2)
[2021-03-20 13:53] LABS: CLARITY,URINE CLOUDY; COLOR,URINE ORANGE; GLUCOSE, URINE (UA) NEGATIVE (NEGATIVE); KETONES,URINE NEGATIVE (NEGATIVE); LEUKOCYTE ESTERASE ,URINE TRACE (NEGATIVE); NITRITE,URINE POSITIVE (NEGATIVE); PROTEIN,URINE 3+ (NEGATIVE)
[2021-03-20 14:17] LABS: BACTERIA,URINE FEW /HPF; BILIRUBIN,URINE 1+ (NEGATIVE); RBC,URINE TNTC /HPF
--- NOTE | 2021-03-20 14:59 | Diagnostic Imaging Report ---
PROCEDURE: CT urinary tract, rule out kidney stone. TECHNIQUE: Multiple contiguous axial images were obtained through the abdomen and pelvis without the use of intravenous contrast. Auto Exposure Controls were utilized during the CT exam to meet ALARA standards for radiation dose reduction. INDICATION: Hematuria. Suprapubic pain. COMPARISON with abdominal pelvic CT performed in 2010. A densely calcified benign granuloma in the right lung base, chronic. The liver, gallbladder and bile ducts appear normal. The spleen is nonfocal and normal in size. There is a small hiatal hernia. The adrenals are negative. The uninfused pancreas appeared nonfocal and nonacute. There are no radiopaque kidney stones. There is no hydroureteronephrosis and no perinephric or periureteric edema. No opaque ureteral calculi. The urinary bladder was nearly empty without visualized pathology. The uterus and adnexa appeared unremarkable. There is no appendicitis or diverticulitis. There is no small or large bowel obstruction. There is no perienteric or pericolonic edema. The abdominal wall appeared intact. No hernia or fluid collection. The bony structures nonacute. There is an atherosclerotic normal caliber abdominal aorta. IMPRESSION: No obstructive features, inflammatory processes or acute abnormalities identified. No adenopathy or suspicious mass. Dictated by: Dictated on workstation # [id number]
[2021-03-20] MEDS ORDERED: PHEN-639 PO (15:05)
[2021-03-20] MEDS ORDERED: CEFU500T63 PO (15:05)
[2021-03-20] MEDS ORDERED: CEFDINIR 300 MG (OMNICEF) CAP PO ONE (15:15)
[2021-03-20 15:30] VITALS: BP 123/76
== END 2021-03-20 15:30 | disposition home or self-care (01) ==
LOC: EDUNIT# 13:07 → ER 13:10
DX: N39.0 Urinary tract infection, site not specified (principal); E66.9 Obesity, unspecified; J44.9 Chronic obstructive pulmonary disease, unspecified; I10 Essential (primary) hypertension; K21.9 Gastro-esophageal reflux disease without esophagitis; Z68.45 Body mass index [BMI] 70 or greater, adult; Z91.041 Radiographic dye allergy status; Z88.0 Allergy status to penicillin; Z88.5 Allergy status to narcotic agent; Z88.8 Allergy status to other drugs, medicaments and biological substances; Z87.891 Personal history of nicotine dependence; Z79.01 Long term (current) use of anticoagulants; Z79.82 Long term (current) use of aspirin; Z79.52 Long term (current) use of systemic steroids; Z79.899 Other long term (current) drug therapy
CPT/HCPCS: 36415; 74176; 80053; 81000; 85025; 85610; 87077; 87088; 87186

== ENCOUNTER 2021-06-11 14:20 | Emergency (ER) | payer OTHER, MEDICAID ==
[~2021-06-11] VITALS: Ht 149.8 cm; Wt 84.0 kg
[~2021-06-11 14:20] MED LIST changes: +CEFU500T63 PO; +PHEN-639 PO
[2021-06-11] MEDS ORDERED: PRD20T PO (16:25)
--- NOTE | 2021-06-11 16:26 | ED Upper Extremity ---
General Chief Complaint: Upper Extremity Stated Complaint: R ARM PAIN Nursing Triage Note: Pt c/o R shoulder pain for over a week. Pt has not seen PCP. Pt denies injury. Pt reports taking taking ibuprofen for pain. Source: patient Exam Limitations: no limitations ([facility] DIAL APRN) History of Present Illness Date Seen by Provider: Jun 11, 2021 Time Seen by Provider: 16:23 Initial Comments To ER with right shoulder pain for over a week. No known injury. Hurts to lay on that side. Any movement of the right arm hurts at the shoulder. Onset: just prior to arrival Severity: moderate Pain/Injury Location: right shoulder Method of Injury: unknown Modifying Factors: Worse With Movement ([facility] DIAL APRN) Allergies and Home Medications Allergies Coded Allergies: Iodinated Contrast Media (Verified Allergy, Unknown, 05/28/06) Penicillins (Verified Allergy, Unknown, 05/29/06) tramadol (Unverified Allergy, Unknown, 01/22/14) vancomycin (Verified Allergy, Unknown, 05/29/06) Home Medications Albuterol Sulfate 6.7 Gm Hfa.aer.ad, 2 PUFF IH Q6H PRN for SHORTNESS OF BREATH, (Reported) Albuterol Sulfate 2.5 Mg/3 Ml Vial.neb, 2.5 MG NEB Q8H PRN for SHORTNESS OF BREATH, (Reported) Aspirin 81 Mg Tablet.dr, 81 MG PO DAILY Prescribed by: DANIELA BURNS on 10/29/19 1125 Cefuroxime Axetil 500 Mg Tablet, 500 MG PO BID Prescribed by: COREY DIAL on 03/20/21 1505 Cetirizine HCl 10 Mg Tablet, 10 MG PO DAILY PRN for ALLERGIES, (Reported) Ciprofloxacin HCl 500 Mg Tablet, 500 MG PO BID Prescribed by: SANDRA MALONEY on 11/01/19 1559 Diphenoxylate HCl/Atropine 1 Each Tablet, 1 EACH PO Q6H PRN for DIARRHEA Prescribed by: SANDRA MALONEY on 11/01/19 1559 Esomeprazole Magnesium 40 Mg Cap, 40 MG PO HS, (Reported) Fluticasone Propionate 16 Gm [place].susp, 1 SPRAY NS DAILY PRN for ALLERGIES, (Reported) Furosemide 40 Mg Tablet, 40 MG PO DAILY, (Reported) Metoprolol Succinate 25 Mg Tab.er.24h, 25 MG PO DAILY, (Reported) Metronidazole 500 Mg Tablet, 500 MG PO Q8H Prescribed by: SANDRA MALONEY on 11/01/19 1559 Ondansetron 4 Mg Tab.rapdis, 4 MG PO Q8H PRN for NAUSEA/VOMITING Prescribed by: SANDRA MALONEY on 11/01/19 1559 Phenazopyridine HCl 100 Mg Tablet, 100 MG PO TID Prescribed by: COREY DIAL on 03/20/21 1505 Prednisone 10 Mg Tab, 0 PO DAILY Prescribed by: PATRICIA GROVE on 10/29/19 1547 Prednisone 20 Mg Tab, 40 MG PO DAILY Prescribed by: COREY DIAL on 06/11/21 1625 Rosuvastatin Calcium 20 Mg Tablet, 20 MG PO DAILY, (Reported) Warfarin Sodium 4 Mg Tablet, 8 MG PO DAILY, (Reported) TAKES 2 (4MG) TABLET Warfarin Sodium 2 Mg Tablet, 2 MG PO Th, (Reported) TAKES AN ADDITIONAL 2MG TABLET ON THURSDAYS AND SATURDAYS ALONG WITH 8MG DAILY DOSE Patient Home Medication List Home Medication List Reviewed: Yes ([facility] DIAL APRN) Review of Systems Constitutional: see HPI EENTM: see HPI Respiratory: no symptoms reported Cardiovascular: no symptoms reported Genitourinary: no symptoms reported Musculoskeletal: see HPI Skin: no symptoms reported Psychiatric/Neurological: No Symptoms Reported ([facility] DIAL APRN) Past Ddpjckf-Zuxter-Wdzlos Hx Patient Social History Tobacco Use?: No Substance use?: No Alcohol Use?: No Pt feels they are or have been: No ([facility]Y DIAL APRN) Immunizations Up To Date Tetanus Booster (TDap): Unknown ([facility]Y DIAL APRN) Seasonal Allergies Seasonal Allergies: No ([facility] DIAL APRN) Past Medical History Surgeries: Yes Appendectomy, Cardiac, CABG, Tubal Ligation, Valve Replacement Respiratory: Yes Asthma, Chronic Bronchitis, COPD Cardiac: Yes Coronary Artery Disease, Hypertension, Valvular Heart Disease Neurological: No Reproductive Disorders: No Genitourinary: Yes UTI-Chronic Gastrointestinal: Yes Gastroesophageal Reflux, Hiatal Hernia Musculoskeletal: Yes Arthritis, Rheumatoid Arthritis Endocrine: No HEENT: Yes (CHRONIC DENTAL PROBLEMS) Cancer: No Psychosocial: No Integumentary: No Blood Disorders: No ([facility] DIAL APRN) Family Medical History No Pertinent Family Hx ([facility] DIAL APRN) Physical Exam Vital Signs Vital Signs - First Documented 06/11/21 15:09 Pulse 80 Resp 12 B/P (MAP) 108/66 (80) Pulse Ox 96 O2 Delivery Room Air ([place] LEWIS MD) Vital Signs Capillary Refill : Less Than 3 Seconds ([facility]Y DIAL APRN) Height, Weight, BMI Height: 4'11.00" Weight: 199lbs. 1.6oz. 90.464615oz; 37.00 BMI Method:Stated General Appearance: WD/WN, no apparent distress Respiratory: no respiratory distress, no accessory muscle use Shoulder: limited ROM, pain, soft tissue tenderness Elbow/Forearm: normal inspection, non-tender Neurologic/Psychiatric: alert, normal mood/affect, oriented x 3 Skin: normal color, warm/dry ([facility]Y DIAL APRN) Progress/Results/Core Measures Results/Orders Medications Given in ED Current Medications Medications Dose Ordered Sig/[place] Route Start Time Stop Time Status Last Admin Dose Admin Ketorolac Tromethamine 60 mg ONCE ONCE IM 06/11/21 16:30 06/11/21 16:31 DC 06/11/21 16:30 60 MG ([place] LEWIS MD) Vital Signs/I&O 06/11/21 06/11/21 15:09 16:56 Pulse 80 80 Resp 12 12 B/P (MAP) 108/66 (80) 108/66 (80) Pulse Ox 96 96 O2 Delivery Room Air Room Air (DENNYS LEWIS MD) Blood Pressure Mean: 80 Departure Impression Primary Impression: Shoulder joint derangement Disposition: 01 HOME, SELF-CARE Condition: Stable Departure-Patient Inst. Decision time for Depature: 16:24 (COREY DIAL APRN) Referrals: [facility]/ (PCP) Primary Care Physician [place] APRN (Family) Primary Care Physician Patient Instructions: NO INSTRUCTIONS GIVEN Add. Discharge Instructions: 1. Return to ER for any concerns 2. Follow-up with your doctor next week. All discharge instructions reviewed with patient and/or family. Voiced u nderstanding. Scripts Prednisone (Prednisone) 20 Mg Tab 40 MG PO DAILY, #6 TAB 0 Refills Prov: COREY DIAL APRN 06/11/21 ATTENDING PHYSICIAN NOTE: I was physically present as attending physician in the emergency department during the care of this patient, but I was not directly involved in the decision making or delivery of care for this patient. (DENNYS LEWIS MD) COREY DIAL APRN Jun 11, 2021 16:25 DENNYS LEWIS MD Jun 11, 2021 19:28
[2021-06-11] MEDS ORDERED: TRIAMCINOLONE ACET (KENALOG-40) 40 MG/ML 1 ML VIAL IA ONE (16:30)
[2021-06-11] MEDS ORDERED: BUPIVACAINE 0.5% 30 ML (SENSORCAINE) VIAL INJ ONE (16:30)
[2021-06-11] MEDS ORDERED: KETOROLAC 60 MG/2 ML VIAL IM ONE (16:30)
[2021-06-11 16:56] VITALS: BP 108/66
== END 2021-06-11 16:57 | disposition home or self-care (01) ==
LOC: EDUNIT# 14:20 → ER 14:21
DX: M24.9 Joint derangement, unspecified (principal); J44.9 Chronic obstructive pulmonary disease, unspecified; I10 Essential (primary) hypertension; K21.9 Gastro-esophageal reflux disease without esophagitis; I25.10 Atherosclerotic heart disease of native coronary artery without angina pectoris; Z79.82 Long term (current) use of aspirin; Z79.01 Long term (current) use of anticoagulants; Z79.899 Other long term (current) drug therapy
CPT/HCPCS: 99284

== ENCOUNTER 2021-07-24 11:15 | Emergency (ER) | payer MEDICARE, MEDICAID ==
[~2021-07-24] VITALS: Ht 152.4 cm; Wt 86.2 kg
[~2021-07-24 11:15] MED LIST changes: +DOXY100C5 PO
[2021-07-24 11:31] VITALS: BP 113/76
[2021-07-24] MEDS ORDERED: ACETAMINOPHEN 500 MG TAB (TYLENOL) PO STA (12:24)
[2021-07-24] MEDS ORDERED: IBUPROFEN TABLET 200 MG TAB PO STA (12:24)
--- NOTE | 2021-07-24 12:42 | ED Upper Extremity ---
General Chief Complaint: Upper Extremity Stated Complaint: R ARM PAIN Nursing Triage Note: PT AMB TO TRIAGE WITH COMPLAINT OF RIGHT ARM PAIN FOR 2 WEEKS. DENIES INJURY Source: patient Exam Limitations: no limitations History of Present Illness Date Seen by Provider: Jul 24, 2021 Time Seen by Provider: 12:20 Initial Comments Here with complaint of right shoulder pain this been going on for the last couple of weeks. Hurts with movement especially overhead lifting. Denies specific injury. Denies chest pain or breathing problems otherwise. She has been taking ibuprofen that has helped some. Onset: other (2 weeks) Severity: moderate Method of Injury: unknown Modifying Factors: Improves With Immobilization; Worse With Movement; Improves With Pain Medication Allergies and Home Medications Allergies Coded Allergies: Iodinated Contrast Media (Verified Allergy, Unknown, 05/28/06) Penicillins (Verified Allergy, Unknown, 05/29/06) tramadol (Unverified Allergy, Unknown, 01/22/14) vancomycin (Verified Allergy, Unknown, 05/29/06) Patient Home Medication List Home Medication List Reviewed: Yes Albuterol Sulfate (Proventil Hfa) 6.7 Gm Hfa.aer.ad, 2 PUFF IH Q6H PRN for SHORTNESS OF BREATH, (Reported) Entered as Reported by: JARRETT SMITH on 01/16/17 0920 Albuterol Sulfate (Albuterol Sulfate) 2.5 Mg/3 Ml Vial.neb, 2.5 MG NEB Q8H PRN for SHORTNESS OF BREATH, (Reported) Entered as Reported by: HUNG ARANGO on 10/29/19 0935 Aspirin (Aspirin EC) 81 Mg Tablet.dr, 81 MG PO DAILY Prescribed by: DANIELA BURNS on 10/29/19 1125 Cefuroxime Axetil (Cefuroxime) 500 Mg Tablet, 500 MG PO BID Prescribed by: COREY DIAL on 03/20/21 1505 Cetirizine HCl (Cetirizine HCl) 10 Mg Tablet, 10 MG PO DAILY PRN for ALLERGIES, (Reported) Entered as Reported by: HUNG ARANGO on 10/29/19 0935 Ciprofloxacin HCl (Ciprofloxacin HCl) 500 Mg Tablet, 500 MG PO BID Prescribed by: SANDRA MALONEY on 11/01/19 1559 Diphenoxylate HCl/Atropine (Lomotil 2.5-0.025 mg Tablet) 1 Each Tablet, 1 EACH PO Q6H PRN for DIARRHEA Prescribed by: SANDRA MALONEY on 11/01/19 1559 Esomeprazole Magnesium (Nexium) 40 Mg Cap, 40 MG PO HS, (Reported) Entered as Reported by: HUNG ARANGO on 10/29/19925 Fluticasone Propionate (Fluticasone Propionate) 16 Gm [place].susp, 1 SPRAY NS DAILY PRN for ALLERGIES, (Reported) Entered as Reported by: HUNG ARANGO on 10/29/19925 Furosemide (Furosemide) 40 Mg Tablet, 40 MG PO DAILY, (Reported) Entered as Reported by: HUNG ARANGO on 10/29/19925 Metoprolol Succinate (Metoprolol Succinate) 25 Mg Tab.er.24h, 25 MG PO DAILY, (Reported) Entered as Reported by: HUNG ARANGO on 10/29/19925 Metronidazole (Flagyl) 500 Mg Tablet, 500 MG PO Q8H Prescribed by: SANDRA MALONEY on 11/01/19 1559 Ondansetron (Ondansetron Odt) 4 Mg Tab.rapdis, 4 MG PO Q8H PRN for NA USEA/VOMITING Prescribed by: SANDRA MALONEY on 11/01/19 1559 Phenazopyridine HCl (Pyridium) 100 Mg Tablet, 100 MG PO TID Prescribed by: COREY DIAL on 03/20/21 1505 Prednisone (Prednisone) 10 Mg Tab, 0 PO DAILY Prescribed by: PATRICIA GROVE on 10/29/19 1547 Prednisone (Prednisone) 20 Mg Tab, 40 MG PO DAILY Prescribed by: COREY DIAL on 06/11/21 1625 Rosuvastatin Calcium (Rosuvastatin Calcium) 20 Mg Tablet, 20 MG PO DAILY, (Reported) Entered as Reported by: HUNG ARANGO on 10/29/19925 Warfarin Sodium (Warfarin Sodium) 4 Mg Tablet, 8 MG PO DAILY, (Reported) Entered as Reported by: HUNG ARANGO on 10/29/19934 Warfarin Sodium (Warfarin Sodium) 2 Mg Tablet, 2 MG PO ThSa, (Reported) Entered as Reported by: HUNG ARANGO on 10/29/19934 Review of Systems Constitutional: see HPI; No chills, No fever Respiratory: No cough, No short of breath Cardiovascular: No chest pain, No edema Musculoskeletal: joint pain, muscle pain Psychiatric/Neurological: No Symptoms Reported Past Asnwxrb-Zufuwk-Vpljqy Hx Patient Social History Tobacco Use?: No Use of E-Cig and/or Vaping dev: No Substance use?: No Alcohol Use?: No Pt feels they are or have been: No Immunizations Up To Date Tetanus Booster (TDap): Unknown Seasonal Allergies Seasonal Allergies: No Past Medical History Surgeries: Yes Appendectomy, Cardiac, CABG, Tubal Ligation, Valve Replacement Respiratory: Yes Asthma, Chronic Bronchitis, COPD Cardiac: Yes Coronary Artery Disease, Hypertension, Valvular Heart Disease Neurological: No Reproductive Disorders: No Genitourinary: Yes UTI-Chronic Gastrointestinal: Yes Gastroesophageal Reflux, Hiatal Hernia Musculoskeletal: Yes Arthritis, Rheumatoid Arthritis Endocrine: No HEENT: Yes (CHRONIC DENTAL PROBLEMS) Cancer: No Psychosocial: No Integumentary: No Blood Disorders: No Family Medical History Reviewed Nursing Family Hx No Pertinent Family Hx Physical Exam Vital Signs Vital Signs - First Documented 07/24/21 11:31 Temp 36.6 Pulse 74 Resp 16 B/P (MAP) 113/76 (88) Pulse Ox 96 O2 Delivery Room Air Capillary Refill : Less Than 3 Seconds Height, Weight, BMI Height: 4'11.00" Weight: 199lbs. 1.6oz. 90.941237we; 37.00 BMI Method:Stated General Appearance: WD/WN, no apparent distress Cardiovascular: regular rate, rhythm, systolic murmur Respiratory: lungs clear, normal breath sounds Shoulder: normal ROM, pain (Pain with over head lifting and with exertion and the forward lifting physician. Tender at the joint anterior lateral.) Hand: normal ROM, Right, Left Neurologic/Psychiatric: alert, oriented x 3 Skin: normal color, warm/dry Fnp strength equal bilateral. Sensation equal bilateral hands. Pulses equal bilateral radial pulses. Progress/Results/Core Measures Results/Orders My Orders Orders - EVELINE PENG MD Acetaminophen Tablet (Tylenol Tablet) (07/24/21 12:24) Ibuprofen Tablet (Motrin Tablet) (07/24/21 12:24) Shoulder, Right, 3 Views (07/24/21 12:24) Vital Signs/I&O 07/24/21 11:31 Temp 36.6 Pulse 74 Resp 16 B/P (MAP) 113/76 (88) Pulse Ox 96 O2 Delivery Room Air Blood Pressure Mean: 88 Progress Progress Note : Progress Note Seen and evaluated. X-ray right shoulder. Tylenol 1 g p.o. and ibuprofen 600 mg p.o. ordered. Monitor patient. 1314: No acute findings. Discharged home with return precautions. Patient verbalized understanding of instructions and agreement with plan. Counseled to minimize use of ibuprofen due to warfarin use. Diagnostic Imaging Diagonstic Imaging: Xray Plain Films/CT/US/NM/MRI: other Comments [facility] [place], [place] NAME: BALAJI QUICK [facility] REC#: [id number] PT STATUS: REG ER : 1955 PHYSICIAN: EVELINE PENG MD ADMIT DATE: 07/24/21/ER Draft Date of Exam:07/24/21 SHOULDER, RIGHT, 3 VIEWS Right shoulder at 1254 INDICATION: Arm pain 3 views were obtained. There is no fracture or dislocation or acute bony abnormality evident. There is mild degenerative disease involving the glenohumeral and acromioclavicular joints. The soft tissues are unremarkable. Incidental note is made of a 1 cm rounded density in the right lung base. This finding was present on the prior exam of 11/01/2019 and has not changed. Consequently is most likely a benign process. IMPRESSION: 1. There is no acute bony abnormality of the shoulder joint. 2. If there is clinical concern regarding an injury to the rotator cuff or labrum, then MRI should be considered for further study. Dictated on workstation # [id number] Dict: 07/24/21 1300 Trans: 07/24/21 1306 [facility] [id number] Interpreted by: RENETTA VALENTINO MD Electronically signed by: Departure Impression Primary Impression: Injury of right rotator cuff Qualified Codes: S46.001A - Unspecified injury of muscle(s) and tendon(s) of the rotator cuff of right shoulder, initial encounter Disposition: HOME, SELF-CARE Condition: Improved Departure-Patient Inst. Decision time for Depature: 13:15 Referrals: DANIELA BURNS DO (PCP/Family) Primary Care Physician Patient Instructions: Rotator Cuff Injury (DC), How to Use a Shoulder Sling ED, Shoulder Pain (DC) Add. Discharge Instructions: All discharge instructions reviewed with patient and/or family. Voiced understanding. You may take Tylenol/acetaminophen 1000 mg every 6-8 hours as needed for pain. You may use ice packs over shoulder as needed. You may use topical icy hot with lidocaine or similar to area of concern per package directions. Follow-up with Dr. Burns for recheck and further evaluation. Call her office for appointment. Return for worse pain, fever, vomiting, weakness, breathing comes or other concerns as needed. Copy Copies To 1: DANIELA BURNS TIMOTHY D MD Jul 24, 2021 12:42
--- NOTE | 2021-07-24 13:06 | Diagnostic Imaging Report ---
Right shoulder at 1254 INDICATION: Arm pain 3 views were obtained. There is no fracture or dislocation or acute bony abnormality evident. There is mild degenerative disease involving the glenohumeral and acromioclavicular joints. The soft tissues are unremarkable. Incidental note is made of a 1 cm rounded density in the right lung base. This finding was present on the prior exam of 11/01/2019 and has not changed. Consequently is most likely a benign process. IMPRESSION: 1. There is no acute bony abnormality of the shoulder joint. 2. If there is clinical concern regarding an injury to the rotator cuff or labrum, then MRI should be considered for further study. Dictated by: Dictated on workstation # [id number]
== END 2021-07-24 13:33 | disposition home or self-care (01) ==
LOC: EDUNIT# 11:15 → ER 11:19
DX: S46.001A Unspecified injury of muscle(s) and tendon(s) of the rotator cuff of right shoulder, initial encounter (principal); I10 Essential (primary) hypertension; I25.10 Atherosclerotic heart disease of native coronary artery without angina pectoris; K21.9 Gastro-esophageal reflux disease without esophagitis; J44.9 Chronic obstructive pulmonary disease, unspecified; Z95.1 Presence of aortocoronary bypass graft; Z95.4 Presence of other heart-valve replacement; Z88.1 Allergy status to other antibiotic agents; Z88.5 Allergy status to narcotic agent; Z79.1 Long term (current) use of non-steroidal anti-inflammatories (NSAID); Z79.01 Long term (current) use of anticoagulants; Z79.51 Long term (current) use of inhaled steroids; Z79.52 Long term (current) use of systemic steroids; Z79.82 Long term (current) use of aspirin; Z79.899 Other long term (current) drug therapy; X58.XXXA Exposure to other specified factors, initial encounter
CPT/HCPCS: 73030; 99283; A4565

== ENCOUNTER → 2021-09-29 | Outpatient (CLI) | payer MEDICARE, MEDICAID ==
[2021-09-29 10:24] LABS: BASOPHILS # (AUTO) 0.1 10^3/uL (0.0-0.1); BASOPHILS % (AUTO) 1 % (0-10); EOSINOPHILS # (AUTO) 0.5 10^3/uL (0.0-0.3); EOSINOPHILS % (AUTO) 5 % (0-10); HEMATOCRIT 36 % (35-52); HEMOGLOBIN 11.8 g/dL (11.5-16.0); LYMPHOCYTES # (AUTO) 2.8 10^3/uL (1.0-4.0); LYMPHOCYTES % (AUTO) 27 % (12-44); MEAN CORPUSCULAR HEMOGLOBIN 28 pg (25-34); MEAN CORPUSCULAR HGB CONC 32 g/dL (32-36); MEAN CORPUSCULAR VOLUME 86 fL (80-99); MEAN PLATELET VOLUME 10.5 fL (9.0-12.2); MONOCYTES # (AUTO) 0.7 10^3/uL (0.0-1.0); MONOCYTES % (AUTO) 7 % (0-12); NEUTROPHILS # (AUTO) 6.4 10^3/uL (1.8-7.8); NEUTROPHILS % (AUTO) 61 % (42-75); PLATELET COUNT 340 10^3/uL (130-400); WHITE BLOOD COUNT 10.4 10^3/uL (4.3-11.0)
[2021-09-29 10:38] LABS: INR 1.3 (0.8-1.4)
[2021-09-29 11:03] LABS: ALBUMIN 4.1 GM/DL (3.2-4.5); BILIRUBIN,TOTAL 0.4 MG/DL (0.1-1.0); CALCIUM 9.7 MG/DL (8.5-10.1); CREATININE SERUM 0.81 MG/DL (0.60-1.30); FREE T4 (FREE THYROXINE) 1.08 NG/DL (0.70-1.48); POTASSIUM 4.1 MMOL/L (3.6-5.0); TOTAL PROTEIN 7.2 GM/DL (6.4-8.2)
== END ==
LOC: LAB 09:53
PROVIDERS: ATTEND Internal Medicine
DX: Z13.6 Encounter for screening for cardiovascular disorders (principal); E03.9 Hypothyroidism, unspecified; R73.9 Hyperglycemia, unspecified; Z79.01 Long term (current) use of anticoagulants
CPT/HCPCS: 36415; 80053; 80061; 83036; 84439; 84443; 85025; 85610

== ENCOUNTER → 2021-11-10 | Outpatient (CLI) | payer MEDICARE, MEDICAID ==
[2021-11-10 14:03] LABS: INR 1.8 (0.8-1.4)
== END ==
LOC: LAB 13:13
PROVIDERS: ATTEND Internal Medicine
DX: Z79.01 Long term (current) use of anticoagulants (principal)
CPT/HCPCS: 36415; 85610

== ENCOUNTER → 2021-12-30 | Outpatient (CLI) | payer MEDICARE, MEDICAID ==
[2021-12-30 08:45] LABS: BASOPHILS # (AUTO) 0.1 10^3/uL (0.0-0.1); BASOPHILS % (AUTO) 1 % (0-10); EOSINOPHILS # (AUTO) 0.6 10^3/uL (0.0-0.3); EOSINOPHILS % (AUTO) 6 % (0-10); HEMATOCRIT 39 % (35-52); HEMOGLOBIN 11.9 g/dL (11.5-16.0); LYMPHOCYTES # (AUTO) 2.4 10^3/uL (1.0-4.0); LYMPHOCYTES % (AUTO) 25 % (12-44); MEAN CORPUSCULAR HEMOGLOBIN 27 pg (25-34); MEAN CORPUSCULAR HGB CONC 31 g/dL (32-36); MEAN CORPUSCULAR VOLUME 88 fL (80-99); MEAN PLATELET VOLUME 11.2 fL (9.0-12.2); MONOCYTES # (AUTO) 0.6 10^3/uL (0.0-1.0); MONOCYTES % (AUTO) 6 % (0-12); NEUTROPHILS % (AUTO) 62 % (42-75); PLATELET COUNT 302 10^3/uL (130-400); WHITE BLOOD COUNT 9.7 10^3/uL (4.3-11.0)
[2021-12-30 08:54] LABS: INR 2.3 (0.8-1.4); PROTHROMBIN TIME PATIENT 26.2 SEC (12.2-14.7)
[2021-12-30 09:01] LABS: ALBUMIN 3.8 GM/DL (3.2-4.5); BILIRUBIN,TOTAL 0.4 MG/DL (0.1-1.0); CALCIUM 9.3 MG/DL (8.5-10.1); CREATININE SERUM 0.81 MG/DL (0.60-1.30); POTASSIUM 4.3 MMOL/L (3.6-5.0); TOTAL PROTEIN 7.1 GM/DL (6.4-8.2)
[2021-12-30 09:22] LABS: FREE T4 (FREE THYROXINE) 1.1 NG/DL (0.70-1.48)
== END ==
LOC: LAB 08:09
PROVIDERS: ATTEND Internal Medicine
DX: E11.65 Type 2 diabetes mellitus with hyperglycemia (principal); E03.9 Hypothyroidism, unspecified; I10 Essential (primary) hypertension; Z79.01 Long term (current) use of anticoagulants; Z13.6 Encounter for screening for cardiovascular disorders
CPT/HCPCS: 36415; 80053; 80061; 83036; 84439; 84443; 85025; 85610

== ENCOUNTER 2022-03-14 10:29 | Emergency (ER) | payer MEDICARE, MEDICAID ==
[~2022-03-14] VITALS: Ht 150 cm; Wt 88.0 kg
--- NOTE | 2022-03-14 10:33 | ED General ---
General Stated Complaint: BACK PAIN - COUGH - CHEST PAIN Source of Information: Patient Exam Limitations: No Limitations History of Present Illness Date Seen by Provider: March 14, 2022 Time Seen by Provider: 10:35 Initial Comments Patient is a 66-year-old female who presents to the emergency department today with a chief complaint of being constipated, having some chest pain with cough as well as some low back pain. She thinks its been "a few days" since she has had a good bowel movement. She developed a cough 2 to 3 days ago and subsequent to that developed pain up under her left breast specifically when she coughed. She is pain-free when she is not coughing. No fevers or chills. She occasionally gets up little sputum that is not colored or bloody. She denies feeling short of breath. She is not nauseous. She denies any burning with urination. No fevers or chills, upper respiratory complaints. She has taken Tylenol for the back pain her last dose was yesterday. She denies any recent traumas or heavy lifting to of cause the pain. She has intermittently had this type of back pain in the past but is never lasted this long. She denies any radiation to her legs or loss of bowel or bladder function. She thinks that she has a bowel movement her back pain may improve. All other review of systems reviewed and negative except as stated Timing/Duration: 3-4 Days Severity: Moderate Associated Systoms: Other (constipated) Allergies and Home Medications Allergies Coded Allergies: Iodinated Contrast Media (Verified Allergy, Unknown, 05/28/06) Penicillins (Verified Allergy, Unknown, 05/29/06) tramadol (Unverified Allergy, Unknown, 01/22/14) vancomycin (Verified Allergy, Unknown, 05/29/06) Patient Home Medication List Home Medication List Reviewed: Yes Albuterol Sulfate (Proventil Hfa) 6.7 Gm Hfa.aer.ad, 2 PUFF IH Q6H PRN for SHORTNESS OF BREATH, (Reported) Entered as Reported by: JARRETT SMITH on 01/16/17 0920 Albuterol Sulfate (Albuterol Sulfate) 2.5 Mg/3 Ml Vial.neb, 2.5 MG NEB Q8H PRN for SHORTNESS OF BREATH, (Reported) Entered as Reported by: HUNG ARANGO on 10/29/19 0935 Aspirin (Aspirin EC) 81 Mg Tablet.dr, 81 MG PO DAILY Prescribed by: DANIELA BURNS on 10/29/19 1125 Cefuroxime Axetil (Cefuroxime) 500 Mg Tablet, 500 MG PO BID Prescribed by: COREY DIAL on 03/20/21 1505 Cetirizine HCl (Cetirizine HCl) 10 Mg Tablet, 10 MG PO DAILY PRN for ALLERGIES, (Reported) Entered as Reported by: HUNG ARANGO on 10/29/19 09 Ciprofloxacin HCl (Ciprofloxacin HCl) 500 Mg Tablet, 500 MG PO BID Prescribed by: SANDRA MALONEY on 11/01/19 155 Diphenoxylate HCl/Atropine (Lomotil 2.5-0.025 mg Tablet) 1 Each Tablet, 1 EACH PO Q6H PRN for DIARRHEA Prescribed by: SANDRA MALONEY on 11/01/19 155 Esomeprazole Magnesium (Nexium) 40 Mg Cap, 40 MG PO HS, (Reported) Entered as Reported by: HUNG ARANGO on 10/29/19 09 Fluticasone Propionate (Fluticasone Propionate) 16 Gm [place].susp, 1 SPRAY NS DAILY PRN for ALLERGIES, (Reported) Entered as Reported by: HUNG ARANGO on 10/29/19 09 Furosemide (Furosemide) 40 Mg Tablet, 40 MG PO DAILY, (Reported) Entered as Reported by: HUNG ARANGO on 10/29/19 09 Metoprolol Succinate (Metoprolol Succinate) 25 Mg Tab.er.24h, 25 MG PO DAILY, (Reported) Entered as Reported by: HUNG ARANGO on 10/29/19925 Metronidazole (Flagyl) 500 Mg Tablet, 500 MG PO Q8H Prescribed by: SANDRA MALONEY on 11/01/19 155 Ondansetron (Ondansetron Odt) 4 Mg Tab.rapdis, 4 MG PO Q8H PRN for NAUSEA/VOMITING Prescribed by: SANDRA MALONEY on 11/01/19 155 Phenazopyridine HCl (Pyridium) 100 Mg Tablet, 100 MG PO TID Prescribed by: COREY DIAL on 03/20/21 1505 Prednisone (Prednisone) 10 Mg Tab, 0 PO DAILY Prescribed by: PATRICIA GROVE on 10/29/19 154 Prednisone (Prednisone) 20 Mg Tab, 40 MG PO DAILY Prescribed by: COREY DIAL on 06/11/21 1625 Rosuvastatin Calcium (Rosuvastatin Calcium) 20 Mg Tablet, 20 MG PO DAILY, (Reported) Entered as Reported by: HUNG ARANGO on 10/29/19 09 Warfarin Sodium (Warfarin Sodium) 4 Mg Tablet, 8 MG PO DAILY, (Reported) Entered as Reported by: HUNG ARANGO on 10/29/19 09 Warfarin Sodium (Warfarin Sodium) 2 Mg Tablet, 2 MG PO ThSa, (Reported) Entered as Reported by: HUNG ARANGO on 10/29/19934 Review of Systems Review of Systems Constitutional: see HPI EENTM: no symptoms reported Respiratory: cough Cardiovascular: chest pain Gastrointestinal: constipation Genitourinary: no symptoms reported Musculoskeletal: back pain Skin: no symptoms reported Psychiatric/Neurological: No Symptoms Reported All Other Systems Reviewed Negative Unless Noted: Yes Past Adsklqm-Qhorrw-Moskyv Hx Immunizations Up To Date Tetanus Booster (TDap): Unknown Seasonal Allergies Seasonal Allergies: No Past Medical History Surgeries: Yes Appendectomy, Cardiac, CABG, Tubal Ligation, Valve Replacement Respiratory: Yes Asthma, Chronic Bronchitis, COPD Cardiac: Yes Coronary Artery Disease, Hypertension, Valvular Heart Disease Neurological: No Reproductive Disorders: No Genitourinary: Yes UTI-Chronic Gastrointestinal: Yes Gastroesophageal Reflux, Hiatal Hernia Musculoskeletal: Yes Arthritis, Rheumatoid Arthritis Endocrine: No HEENT: Yes (CHRONIC DENTAL PROBLEMS) Cancer: No Psychosocial: No Integumentary: No Blood Disorders: No Family Medical History No Pertinent Family Hx Physical Exam Vital Signs Vital Signs - First Documented 03/14/22 10:39 Temp 37.5 Pulse 88 Resp 28 B/P (MAP) 140/74 (96) Pulse Ox 95 O2 Delivery Room Air Capillary Refill : Height, Weight, BMI Height: 4'11.00" Weight: 199lbs. 1.6oz. 90.006958bi; 37.00 BMI Method:Stated General Appearance: No Apparent Distress, WD/WN Eyes: Bilateral Eye Normal Inspection, Bilateral Eye PERRL, Bilateral Eye EOMI HEENT: PERRL/EOMI Neck: Normal Inspection Respiratory: Lungs Clear, Normal Breath Sounds, No Accessory Muscle Use, No Respiratory Distress Cardiovascular: Regular Rate, Rhythm, Normal Peripheral Pulses, Systolic Murmur (with valvular click) Gastrointestinal: Normal Bowel Sounds, Non Tender, Soft Back: Normal Inspection, No CVA Tenderness, No Vertebral Tenderness, Other (She has minimal reproduction of pain with palpation at the lumbosacral junction, no paraspinous tenderness, no overlying rashes.) Extremity: Normal Capillary Refill, Normal Inspection, Normal Range of Motion, Non Tender, No Calf Tenderness, No Pedal Edema Neurologic/Psychiatric: Alert, Oriented x3, No Motor/Sensory Deficits, Normal Mood/Affect, terminal operator II-XII Norm as Tested Skin: Normal Color, Warm/Dry Focused Exam Lactate Level 03/14/22 12:40: Lactic Acid Level 0.83 Lactic Acid Level Laboratory Tests Test 03/14/22 12:40 Lactic Acid Level 0.83 MMOL/L (0.50-2.00) Progress/Results/Core Measures Suspected Sepsis SIRS Temperature: Pulse: Respiratory Rate: Laboratory Tests 03/14/22 10:54: White Blood Count 19.7H Blood Pressure / Mean: 03/14/22 12:40: Lactic Acid Level 0.83 Laboratory Tests 03/14/22 10:54: Creatinine 0.86, INR Comment 1.2, Platelet Count 314, Total Bilirubin 0.8 Results/Orders Lab Results Laboratory Tests Test 03/14/22 10:54 03/14/22 12:40 03/14/22 12:55 Range/Units White Blood Count 19.7 H 4.3-11.0 10^3/uL Red Blood Count 4.21 3.80-5.11 10^6/uL Hemoglobin 11.4 L 11.5-16.0 g/dL Hematocrit 36 35-52 % Mean Corpuscular Volume 85 80-99 fL Mean Corpuscular Hemoglobin 27 25-34 pg Mean Corpuscular Hemoglobin Concent 32 32-36 g/dL Red Cell Distribution Width 14.2 10.0-14.5 % Platelet Count 314 130-400 10^3/uL Mean Platelet Volume 11.2 9.0-12.2 fL Immature Granulocyte % (Auto) 1 % Neutrophils (%) (Auto) 79 H 42-75 % Lymphocytes (%) (Auto) 10 L 12-44 % Monocytes (%) (Auto) 9 0-12 % Eosinophils (%) (Auto) 2 0-10 % Basophils (%) (Auto) 1 0-10 % Neutrophils # (Auto) 15.5 H 1.8-7.8 10^3/uL Lymphocytes # (Auto) 2.0 1.0-4.0 10^3/uL Monocytes # (Auto) 1.7 H 0.0-1.0 10^3/uL Eosinophils # (Auto) 0.3 0.0-0.3 10^3/uL Basophils # (Auto) 0.1 0.0-0.1 10^3/uL Immature Granulocyte # (Auto) 0.1 0.0-0.1 10^3/uL Neutrophils % (Manual) 83 % Lymphocytes % (Manual) 11 % Monocytes % (Manual) 6 % Blood Morphology Comment NORMAL Prothrombin Time 16.1 H 12.2-14.7 SEC INR Comment 1.2 0.8-1.4 Activated Partial Thromboplast Time 34 24-35 SEC Sodium Level 136 135-145 MMOL/L Potassium Level 4.2 3.6-5.0 MMOL/L Chloride Level 103 98-107 MMOL/L Carbon Dioxide Level 19 L 21-32 MMOL/L Anion Gap 14 5-14 MMOL/L Blood Urea Nitrogen 14 7-18 MG/DL Creatinine 0.86 0.60-1.30 MG/DL Estimat Glomerular Filtration Rate 74 BUN/Creatinine Ratio 16 Glucose Level 222 H 70-105 MG/DL Calcium Level 9.5 8.5-10.1 MG/DL Corrected Calcium 9.7 8.5-10.1 MG/DL Magnesium Level 2.0 1.6-2.4 MG/DL Total Bilirubin 0.8 0.1-1.0 MG/DL Aspartate Amino Transf (AST/SGOT) 22 5-34 U/L Alanine Aminotransferase (ALT/SGPT) 17 0-55 U/L Alkaline Phosphatase 102 40-136 U/L Myoglobin 47.5 10.0-92.0 NG/ML Troponin I < 0.028 <0.028 NG/ML Total Protein 7.8 6.4-8.2 GM/DL Albumin 3.8 3.2-4.5 GM/DL Lactic Acid Level 0.83 0.50-2.00 MMOL/L Urine Color YELLOW Urine Clarity CLEAR Urine pH 6.0 5-9 Urine Specific [place] <=1.005 1.016-1.022 Urine Protein NEGATIVE NEGATIVE Urine Glucose (UA) TRACE H NEGATIVE Urine Ketones NEGATIVE NEGATIVE Urine Nitrite POSITIVE H NEGATIVE Urine Bilirubin NEGATIVE NEGATIVE Urine Urobilinogen 1.0 < = 1.0 MG/DL Urine Leukocyte Esterase TRACE H NEGATIVE Urine RBC (Auto) NEGATIVE NEGATIVE Urine RBC NONE /HPF Urine WBC 5-10 H /HPF Urine Squamous Epithelial Cells 10-25 H /HPF Urine Crystals NONE /LPF Urine Bacteria FEW H /HPF Urine Casts NONE /LPF Urine Mucus NEGATIVE /LPF Urine Culture Indicated CULTURE PENDING My Orders Orders - FAITH ROSSI MD Ekg Tracing (03/14/22 10:31) Cbc With Automated Diff (03/14/22 10:47) Magnesium (03/14/22 10:47) Chest 1 View, Ap/Pa Only (03/14/22 10:47) Comprehensive Metabolic Panel (03/14/22 10:47) Myoglobin Serum (03/14/22 10:47) Protime With Inr (03/14/22 10:47) Partial Thromboplastin Time (03/14/22 10:47) O2 (03/14/22 10:47) Monitor-Rhythm Ecg Trace Only (03/14/22 10:47) Lipid Panel (03/15/22 06:00) Ed Iv/Invasive Line Start (03/14/22 10:47) Troponin I [place] (03/14/22 10:47) Acetaminophen Tablet (Tylenol Tablet) (03/14/22 11:00) Orphenadrine Inj (Ed Only) (Norflex Inje (03/14/22 11:00) Lidocaine 4% Patch (Salonpas 4% Patch) (03/14/22 10:59) Manual Differential (03/14/22 10:54) Blood Culture (03/14/22 11:54) Urinalysis (03/14/22 11:54) Urine Culture (03/14/22 11:54) Ed Iv/Invasive Line Start (03/14/22 11:54) Ed Iv/Invasive Line Start (03/14/22 11:54) Vital Signs Adult Sepsis Patie Q15M (03/14/22 11:54) O2 (03/14/22 11:54) Remove Rings In Anticipation O (03/14/22 11:54) Lactic Acid Analyzer (03/14/22 11:54) Ns Iv 1000 Ml (Sodium Chloride 0.9%) (03/14/22 12:00) Medications Given in ED Current Medications Medications Dose Ordered Sig/K[place] Route Start Time Stop Time Status Last Admin Dose Admin Acetaminophen 1,000 mg ONCE ONCE PO 03/14/22 11:00 03/14/22 11:01 DC 03/14/22 11:00 1,000 MG Orphenadrine Citrate 60 mg ONCE ONCE IV 03/14/22 11:00 03/14/22 11:01 DC 03/14/22 11:00 60 MG Vital Signs/I&O 03/14/22 10:39 Temp 37.5 Pulse 88 Resp 28 B/P (MAP) 140/74 (96) Pulse Ox 95 O2 Delivery Room Air Capillary Refill : Progress Note : Time: 13:22 Progress Note Rechecked patient prior to disposition. Her back pain is better but not gone. We talked about the infection in her urine and although it is contaminated with some squamous epithelial cells she did have an E. coli urinary tract infection a year ago. This is the only thing that I can suspect may be causing her profound leukocytosis. However she still has a cough she is producing some sputum we talked about the fact that she may be a little volume depleted/dehydrated and that when she got some more fluids into her she might slough out a little pneumonia. My plan is to start her on Keflex after a gram of Rocephin here. I have given her strict return precautions to include after 24 hours if she is not getting any better that she comes back to the emergency department. I recommended some Mucinex. Also magnesium citrate for her constipation. Her abdominal exam is soft and benign. She has no point tenderness and voluntary guarding or rebound. She seems comfortable with this plan of care. She is not tachycardic, she is not hypotensive, she is not hypoxic. All questions are sought and answered. Patient is stable for discharge. ECG Initial ECG Impression Date: March 14, 2022 Initial ECG Impression Time: 10:37 Initial ECG Rate: 90 Initial ECG Rhythm: Normal Sinus Initial ECG Impression: Normal Comment ND interval 153 QRS [address] segment depression or elevation is noted. No ectopy is noted. There is some baseline artifact in leads V5 and V6 Diagnostic Imaging Diagonstic Imaging: Xray Plain Films/CT/US/NM/MRI: chest Comments [facility] [address] [address] [place], [place] NAME: BALAJI [facility] REC#: [id number] PT STATUS: REG ER : 1955 PHYSICIAN: FAITH ROSSI MD ADMIT DATE: 03/14/22/ER Draft Date of Exam:03/14/22 CHEST 1 VIEW, AP/PA ONLY CLINICAL INDICATIONS: Patient with chest pain. EXAM: Portable chest x-ray upright view. COMPARISON: Chest x-ray dated 10/29/2019. CT scan of the abdomen and pelvis dated 03/20/2021. FINDINGS: Stable cardiomegaly. There is no significant pulmonary vascular congestion. Again seen postop change to the chest consistent with CABG. Again seen calcified granuloma in the right lower lobe region. Otherwise, lungs are clear. There is no pleural effusion pneumothorax. There are degenerative spurs involving the thoracic spine. IMPRESSION: 1: There is no radiographic evidence of acute cardiopulmonary process. 2: There is mild cardiomegaly with no significant pulmonary vascular disease. Dictated on workstation # [id number] Dict: 03/14/22 1106 Trans: 03/14/22 1118 [facility] [id number] Interpreted by: MOSES BHAKTA MD Electronically signed by: Departure Impression Primary Impression: Low back pain Qualified Codes: M54.50 - Low back pain, unspecified; G89.29 - Other chronic pain Additional Impressions: UTI (urinary tract infection) Qualified Codes: N30.00 - Acute cystitis without hematuria Constipation Qualified Codes: K59.00 - Constipation, unspecified Subtherapeutic international normalized ratio (INR) Disposition: 01 HOME, SELF-CARE Condition: Improved Departure-Patient Inst. Decision time for Depature: 13:24 Referrals: DANIELA BURNS DO (PCP/Family) Primary Care Physician Patient Instructions: Urinary Tract Infection, Adult ED, Constipation, Adult (DC) Add. Discharge Instructions: Drink plenty fluids to stay well-hydrated. Take the antibiotics as directed for the next week. You can use wata-dzg-fadnxrt Mucinex for respiratory secretions. Mmfr-jdv-jtlsjsb magnesium citrate to help relieve constipation. Also drinking plenty of water will help with your constipation as well taking stool softeners potentially. Use the iuyj-gta-zzbhxwa brand of Salonpas or generic lidocaine patches on the sore areas of your back. Follow packaging instructions. You can take ibuprofen 2 to 3 tablets which is 400 to 600 mg with food every 6 hours as needed for pain. If any of your symptoms are significantly worsening in the next 24 to 48 hours please come back to the emergency department for reevaluation. Please call Dr. Burns's office on Tuesday morning for a follow-up appointment next week. Please double check your Coumadin pills at home and make sure you are taking them appropriately as you were very below the excepted threshold for the thinness of your blood. Be sure and take a dose tonight. These levels will need to be rececked this week - in 3-4 days. Scripts Methocarbamol (Methocarbamol) 750 Mg Tablet 750 MG PO Q6-8HR for Back Pain, #15 TAB Prov: FAITH ROSSI MD 03/14/22 Cephalexin (Cephalexin) 500 Mg Tablet 500 MG PO TID for 7 Days, #21 TAB Prov: FAITH ROSSI MD 03/14/22 Copy Copies To 1: DANIELA BURNS KATHRYN M MD March 14, 2022 10:33
[2022-03-14 10:39] VITALS: BP 140/74
[2022-03-14] MEDS ORDERED: LIDOCAINE 4% (SALONPAS) PATCH TOP SCH (10:59)
[2022-03-14] MEDS ORDERED: ACETAMINOPHEN 500 MG TAB (TYLENOL) PO ONE (11:00)
[2022-03-14] MEDS ORDERED: ORPHENADRINE 60 MG/2 ML (NORFLEX) AMP (ED ONLY) IV ONE (11:00)
[2022-03-14 11:01] LABS: BASOPHILS # (AUTO) 0.1 10^3/uL (0.0-0.1); BASOPHILS % (AUTO) 1 % (0-10); EOSINOPHILS # (AUTO) 0.3 10^3/uL (0.0-0.3); EOSINOPHILS % (AUTO) 2 % (0-10); HEMATOCRIT 36 % (35-52); HEMOGLOBIN 11.4 g/dL (11.5-16.0); LYMPHOCYTES % (AUTO) 10 % (12-44); MEAN CORPUSCULAR HEMOGLOBIN 27 pg (25-34); MEAN CORPUSCULAR HGB CONC 32 g/dL (32-36); MEAN CORPUSCULAR VOLUME 85 fL (80-99); MEAN PLATELET VOLUME 11.2 fL (9.0-12.2); MONOCYTES # (AUTO) 1.7 10^3/uL (0.0-1.0); MONOCYTES % (AUTO) 9 % (0-12); NEUTROPHILS # (AUTO) 15.5 10^3/uL (1.8-7.8); NEUTROPHILS % (AUTO) 79 % (42-75); PLATELET COUNT 314 10^3/uL (130-400); WHITE BLOOD COUNT 19.7 10^3/uL (4.3-11.0)
[2022-03-14 11:17] LABS: INR 1.2 (0.8-1.4); PROTHROMBIN TIME PATIENT 16.1 SEC (12.2-14.7)
[2022-03-14 11:18] LABS: ALBUMIN 3.8 GM/DL (3.2-4.5); POTASSIUM 4.2 MMOL/L (3.6-5.0)
[2022-03-14 11:19] LABS: CALCIUM 9.5 MG/DL (8.5-10.1)
--- NOTE | 2022-03-14 11:19 | Diagnostic Imaging Report ---
CLINICAL INDICATIONS: Patient with chest pain. EXAM: Portable chest x-ray upright view. COMPARISON: Chest x-ray dated 10/29/2019. CT scan of the abdomen and pelvis dated 03/20/2021. FINDINGS: Stable cardiomegaly. There is no significant pulmonary vascular congestion. Again seen postop change to the chest consistent with CABG. Again seen calcified granuloma in the right lower lobe region. Otherwise, lungs are clear. There is no pleural effusion pneumothorax. There are degenerative spurs involving the thoracic spine. IMPRESSION: 1: There is no radiographic evidence of acute cardiopulmonary process. 2: There is mild cardiomegaly with no significant pulmonary vascular disease. Dictated by: Dictated on workstation # [id number]
[2022-03-14 11:20] LABS: TOTAL PROTEIN 7.8 GM/DL (6.4-8.2)
[2022-03-14 11:22] LABS: BILIRUBIN,TOTAL 0.8 MG/DL (0.1-1.0)
[2022-03-14 11:24] LABS: CREATININE SERUM 0.86 MG/DL (0.60-1.30)
[2022-03-14 11:54] LABS: LYMPHOCYTES % (MANUAL) 11 %; NEUTROPHILS % (MANUAL) 83 %
[2022-03-14 11:55] LABS: MONOCYTES % (MANUAL) 6 %; RBC MORPH NORMAL
[2022-03-14] MEDS ORDERED: NS IV 1000 ML 1,000 ML IV SCH (12:00)
[2022-03-14 13:06] LABS: BILIRUBIN,URINE NEGATIVE (NEGATIVE); CLARITY,URINE CLEAR; COLOR,URINE YELLOW; GLUCOSE, URINE (UA) TRACE (NEGATIVE); KETONES,URINE NEGATIVE (NEGATIVE); LEUKOCYTE ESTERASE ,URINE TRACE (NEGATIVE); NITRITE,URINE POSITIVE (NEGATIVE); PROTEIN,URINE NEGATIVE (NEGATIVE)
[2022-03-14 13:13] LABS: BACTERIA,URINE FEW /HPF
[2022-03-14] MEDS ORDERED: CEPH500T PO (13:29)
[2022-03-14] MEDS ORDERED: warFARin 4 MG (COUMADIN) TAB PO STA (13:29)
[2022-03-14] MEDS ORDERED: METH-732 PO (13:29)
[2022-03-14] MEDS ORDERED: cefTRIAXone 1 GM PRE-MIX 50 ML IV ONE (13:30)
== END 2022-03-14 14:09 | disposition home or self-care (01) ==
LOC: EDUNIT# 10:29 → ER 10:30
DX: G89.29 Other chronic pain (principal); M54.50 Low back pain, unspecified; K59.00 Constipation, unspecified; N30.00 Acute cystitis without hematuria; R79.1 Abnormal coagulation profile; Z87.440 Personal history of urinary (tract) infections
CPT/HCPCS: 36415; 71045; 80053; 81000; 83605; 83735; 83874; 84484; 85007; 85027; 85610; 85730; 87040; 87077; 87088; 87186; 93005

== ENCOUNTER 2022-04-21 15:49 | Emergency (ER) | payer MEDICARE, MEDICAID ==
[~2022-04-21] VITALS: Ht 149.8 cm; Wt 88.9 kg
--- NOTE | 2022-04-21 17:08 | ED Abdominal Pain ---
General Chief Complaint: Abdominal/GI Problems Stated Complaint: CONSTIPATION Nursing Triage Note: PT AMB TO RM 3 A/O X4. PT STATED THAT SHE WAS AT OUTPATIENT LAB TODAY. PT STATED THAT SHE HAS HAD CONSTIPATION FOR A WEEK OR LONGER. SHE DESCRIBED HER STOOL BLACK. PT ALSO STATED THAT SHE HAS WEAKNESS AND HEADACHES THAT HAS BEEN GOING ON FOR A WEEK. Source of Information: Patient Exam Limitations: No Limitations History of Present Illness Date Seen by Provider: Apr 21, 2022 Time Seen by Provider: 17:08 Allergies and Home Medications Allergies Coded Allergies: Iodinated Contrast Media (Verified Allergy, Unknown, 05/28/06) Penicillins (Verified Allergy, Unknown, 05/29/06) tramadol (Unverified Allergy, Unknown, 01/22/14) vancomycin (Verified Allergy, Unknown, 05/29/06) Patient Home Medication List Albuterol Sulfate (Proventil Hfa) 6.7 Gm Hfa.aer.ad, 2 PUFF IH Q6H PRN for SHORTNESS OF BREATH, (Reported) Entered as Reported by: JARRETT SMITH on 01/16/17 0920 Albuterol Sulfate (Albuterol Sulfate) 2.5 Mg/3 Ml Vial.neb, 2.5 MG NEB Q8H PRN for SHORTNESS OF BREATH, (Reported) Entered as Reported by: HUNG ARANGO on 10/29/19 0935 Aspirin (Aspirin EC) 81 Mg Tablet.dr, 81 MG PO DAILY Prescribed by: DANIELA BURNS on 10/29/19 1125 Cefuroxime Axetil (Cefuroxime) 500 Mg Tablet, 500 MG PO BID Prescribed by: COREY DIAL on 03/20/21 1505 Cephalexin (Cephalexin) 500 Mg Tablet, 500 MG PO TID Prescribed by: FAITH ROSSI on 03/14/22 1329 Cetirizine HCl (Cetirizine HCl) 10 Mg Tablet, 10 MG PO DAILY PRN for ALLERGIES, (Reported) Entered as Reported by: HUNG ARANGO on 10/29/19 0935 Ciprofloxacin HCl (Ciprofloxacin HCl) 500 Mg Tablet, 500 MG PO BID Prescribed by: SANDRA MALONEY on 11/01/19 1559 Diphenoxylate HCl/Atropine (Lomotil 2.5-0.025 mg Tablet) 1 Each Tablet, 1 EACH P O Q6H PRN for DIARRHEA Prescribed by: SANDRA MALONEY on 11/01/19 1559 Esomeprazole Magnesium (Nexium) 40 Mg Cap, 40 MG PO HS, (Reported) Entered as Reported by: HUNG ARANGO on 10/29/19925 Fluticasone Propionate (Fluticasone Propionate) 16 Gm [place].susp, 1 SPRAY NS DAILY PRN for ALLERGIES, (Reported) Entered as Reported by: HUNG ARANGO on 10/29/19925 Furosemide (Furosemide) 40 Mg Tablet, 40 MG PO DAILY, (Reported) Entered as Reported by: HUNG ARANGO on 10/29/19925 Methocarbamol (Methocarbamol) 750 Mg Tablet, 750 MG PO Q6-8HR Prescribed by: FAITH ROSSI on 03/14/22 1329 Metoprolol Succinate (Metoprolol Succinate) 25 Mg Tab.er.24h, 25 MG PO DAILY, (Reported) Entered as Reported by: HUNG ARANGO on 10/29/19925 Metronidazole (Flagyl) 500 Mg Tablet, 500 MG PO Q8H Prescribed by: SANDRA MALONEY on 11/01/19 155 Ondansetron (Ondansetron Odt) 4 Mg Tab.rapdis, 4 MG PO Q8H PRN for NAUS EA/VOMITING Prescribed by: SANDRA MALONEY on 11/01/19 155 Phenazopyridine HCl (Pyridium) 100 Mg Tablet, 100 MG PO TID Prescribed by: COREY DIAL on 03/20/21 1505 Prednisone (Prednisone) 10 Mg Tab, 0 PO DAILY Prescribed by: PATRICIA GROVE on 10/29/19 1547 Prednisone (Prednisone) 20 Mg Tab, 40 MG PO DAILY Prescribed by: COREY DIAL on 06/11/21 1625 Rosuvastatin Calcium (Rosuvastatin Calcium) 20 Mg Tablet, 20 MG PO DAILY, (Reported) Entered as Reported by: HUNG ARANGO on 10/29/19925 Warfarin Sodium (Warfarin Sodium) 4 Mg Tablet, 8 MG PO DAILY, (Reported) Entered as Reported by: HUNG ARANGO on 10/29/19934 Warfarin Sodium (Warfarin Sodium) 2 Mg Tablet, 2 MG PO ThSa, (Reported) Entered as Reported by: HUNG ARANGO on 10/29/19934 Past Zydocnj-Nglqfs-Ojgzil Hx Patient Social History Tobacco Use?: No Smoking Status: Former Smoker Substance use?: No Alcohol Use?: No Pt feels they are or have been: No Immunizations Up To Date Tetanus Booster (TDap): Unknown Influenza Vaccine Up-to-Date: No; Not Current Seasonal Allergies Seasonal Allergies: No Past Medical History Surgery/Hospitalization HX: 2006 heart surgery, went to recently for cough Surgeries: Yes Appendectomy, Cardiac, CABG, Tubal Ligation, Valve Replacement Respiratory: Yes Asthma, Chronic Bronchitis, COPD Cardiac: Yes Coronary Artery Disease, Hypertension, Valvular Heart Disease Neurological: No Reproductive Disorders: No Genitourinary: Yes UTI-Chronic Gastrointestinal: Yes Gastroesophageal Reflux, Hiatal Hernia Musculoskeletal: Yes Arthritis, Rheumatoid Arthritis Endocrine: No HEENT: Yes (CHRONIC DENTAL PROBLEMS) Cancer: No Psychosocial: No Integumentary: No Blood Disorders: No Family Medical History No Pertinent Family Hx Physical Exam Vital Signs Vital Signs - First Documented 04/21/22 16:00 Temp 37.5 Pulse 85 Resp 14 B/P (MAP) 107/63 (78) Pulse Ox 96 O2 Delivery Room Air Capillary Refill : Less Than 3 Seconds Height/Weight/BMI Height: 4'11.00" Weight: 199lbs. 1.6oz. 90.017469ai; 39.00 BMI Method:Stated Progress/Results/Core Measures Results/Orders Lab Results Laboratory Tests Test 04/21/22 17:00 04/21/22 17:09 Range/Units Influenza Type A (RT-PCR) Not Detected Not Detecte Influenza Type B (RT-PCR) Not Detected Not Detecte SARS-CoV-2 RNA (RT-PCR) Not Detected Not Detecte White Blood Count 14.7 H 4.3-11.0 10^3/uL Red Blood Count 4.21 3.80-5.11 10^6/uL Hemoglobin 11.4 L 11.5-16.0 g/dL Hematocrit 38 35-52 % Mean Corpuscular Volume 90 80-99 fL Mean Corpuscular Hemoglobin 27 25-34 pg Mean Corpuscular Hemoglobin Concent 30 L 32-36 g/dL Red Cell Distribution Width 14.7 H 10.0-14.5 % Platelet Count 482 H 130-400 10^3/uL Mean Platelet Volume 10.0 9.0-12.2 fL Immature Granulocyte % (Auto) 1 % Neutrophils (%) (Auto) 61 42-75 % Lymphocytes (%) (Auto) 26 12-44 % Monocytes (%) (Auto) 7 0-12 % Eosinophils (%) (Auto) 5 0-10 % Basophils (%) (Auto) 1 0-10 % Neutrophils # (Auto) 9.0 H 1.8-7.8 10^3/uL Lymphocytes # (Auto) 3.8 1.0-4.0 10^3/uL Monocytes # (Auto) 1.0 0.0-1.0 10^3/uL Eosinophils # (Auto) 0.8 H 0.0-0.3 10^3/uL Basophils # (Auto) 0.1 0.0-0.1 10^3/uL Immature Granulocyte # (Auto) 0.1 0.0-0.1 10^3/uL Sodium Level 135 135-145 MMOL/L Potassium Level 4.2 3.6-5.0 MMOL/L Chloride Level 100 98-107 MMOL/L Carbon Dioxide Level 21 21-32 MMOL/L Anion Gap 14 5-14 MMOL/L Blood Urea Nitrogen 26 H 7-18 MG/DL Creatinine 1.51 H 0.60-1.30 MG/DL Estimat Glomerular Filtration Rate 38 BUN/Creatinine Ratio 17 Glucose Level 169 H 70-105 MG/DL Calcium Level 9.8 8.5-10.1 MG/DL Corrected Calcium 10.0 8.5-10.1 MG/DL Total Bilirubin 0.2 0.1-1.0 MG/DL Aspartate Amino Transf (AST/SGOT) 30 5-34 U/L Alanine Aminotransferase (ALT/SGPT) 21 0-55 U/L Alkaline Phosphatase 94 40-136 U/L Total Protein 7.5 6.4-8.2 GM/DL Albumin 3.8 3.2-4.5 GM/DL My Orders Orders - [employer] Acute Abd Series (04/21/22 16:56) Covid 19 Inhouse Test (04/21/22 16:56) Influenza A And B By Pcr (04/21/22 16:56) Cbc With Automated Diff (04/21/22 16:56) Comprehensive Metabolic Panel (04/21/22 16:56) Manual Differential (04/21/22 17:09) Vital Signs/I&O 04/21/22 16:00 Temp 37.5 Pulse 85 Resp 14 B/P (MAP) 107/63 (78) Pulse Ox 96 O2 Delivery Room Air Blood Pressure Mean: 78 Departure Impression Primary Impression: Constipation Disposition: 01 HOME, SELF-CARE Condition: Improved Departure-Patient Inst. Decision time for Depature: 17:48 Referrals: DANIELA BURNS DO (PCP/Family) Primary Care Physician Patient Instructions: Constipation, Adult ED Add. Discharge Instructions: Plan: 1. Use Miralax twice a day until you achieve soft stools. 2. May use daily to help keep bowel movements soft. Make sure you are getting plenty of exercise and fluids. 3. Return to ER for any new, concerning, or worsening symptoms. All discharge instructions reviewed with patient and/or family. Voiced understanding. [employer] Apr 21, 2022 17:08
[2022-04-21 17:16] LABS: BASOPHILS # (AUTO) 0.1 10^3/uL (0.0-0.1); BASOPHILS % (AUTO) 1 % (0-10); EOSINOPHILS # (AUTO) 0.8 10^3/uL (0.0-0.3); EOSINOPHILS % (AUTO) 5 % (0-10); HEMATOCRIT 38 % (35-52); HEMOGLOBIN 11.4 g/dL (11.5-16.0); LYMPHOCYTES # (AUTO) 3.8 10^3/uL (1.0-4.0); LYMPHOCYTES % (AUTO) 26 % (12-44); MEAN CORPUSCULAR HEMOGLOBIN 27 pg (25-34); MEAN CORPUSCULAR HGB CONC 30 g/dL (32-36); MEAN CORPUSCULAR VOLUME 90 fL (80-99); MONOCYTES % (AUTO) 7 % (0-12); NEUTROPHILS % (AUTO) 61 % (42-75); PLATELET COUNT 482 10^3/uL (130-400); WHITE BLOOD COUNT 14.7 10^3/uL (4.3-11.0)
[2022-04-21 17:34] LABS: ALBUMIN 3.8 GM/DL (3.2-4.5); POTASSIUM 4.2 MMOL/L (3.6-5.0)
[2022-04-21 17:36] LABS: CALCIUM 9.8 MG/DL (8.5-10.1)
[2022-04-21 17:37] LABS: TOTAL PROTEIN 7.5 GM/DL (6.4-8.2)
[2022-04-21 17:39] LABS: BILIRUBIN,TOTAL 0.2 MG/DL (0.1-1.0)
[2022-04-21 17:41] LABS: CREATININE SERUM 1.51 MG/DL (0.60-1.30)
--- NOTE | 2022-04-21 17:44 | Diagnostic Imaging Report ---
Acute abd series INDICATION: Constipation. COMPARISON: CT abdomen and pelvis of 03/20/2021. TECHNIQUE: PA chest with upright AP view of the abdomen. FINDINGS: Calcified right lower lobe pulmonary nodule is stable. Otherwise, lungs are clear. No pleural effusion or pneumothorax. Stable changes of CABG. Normal heart size. Nonobstructive bowel gas pattern. No features of free intraperitoneal air. A moderate amount of stool is present throughout the colon. Stable regional skeleton. IMPRESSION: 1. Moderate volume of colonic stool. 2. No acute cardiopulmonary process. Dictated by: Dictated on workstation # [id number]
[2022-04-21] MEDS ORDERED: LACTULOSE SYRUP 10GM/15ML (ENULOSE) 30ML UDC PO ONE (18:00)
[2022-04-21 18:19] LABS: BAND NEUTROPHILS 1 %; NEUTROPHILS % (MANUAL) 66 %
[2022-04-21 18:20] LABS: EOSINOPHILS % (MANUAL) 4 %; LYMPHOCYTES % (MANUAL) 24 %; MONOCYTES % (MANUAL) 5 %; RBC MORPH NORMAL
[2022-04-21 18:54] VITALS: BP 96/59
== END 2022-04-21 18:59 | disposition home or self-care (01) ==
LOC: EDUNIT# 15:49 → ER 15:51
DX: K59.00 Constipation, unspecified (principal); Z87.891 Personal history of nicotine dependence; Z20.822 Contact with and (suspected) exposure to COVID-19; Z28.310 Unvaccinated for COVID-19
CPT/HCPCS: 36415; 74022; 80053; 85007; 85027; 87636

== ENCOUNTER → 2022-04-21 | Outpatient (CLI) | payer MEDICARE, MEDICAID ==
[~2022-04-21] MED LIST changes: +METH-732 PO
[2022-04-21 15:49] LABS: ALBUMIN 3.8 GM/DL (3.2-4.5); POTASSIUM 3.9 MMOL/L (3.6-5.0)
[2022-04-21 15:50] LABS: CALCIUM 9.8 MG/DL (8.5-10.1)
[2022-04-21 15:51] LABS: TOTAL PROTEIN 7.2 GM/DL (6.4-8.2)
[2022-04-21 15:53] LABS: BILIRUBIN,TOTAL 0.3 MG/DL (0.1-1.0)
[2022-04-21 15:55] LABS: CREATININE SERUM 1.55 MG/DL (0.60-1.30)
[2022-04-21 16:18] LABS: FREE T4 (FREE THYROXINE) 1.11 NG/DL (0.70-1.48)
== END ==
LOC: LAB 15:12
PROVIDERS: ATTEND Internal Medicine
DX: Z13.6 Encounter for screening for cardiovascular disorders (principal); E03.9 Hypothyroidism, unspecified; E11.65 Type 2 diabetes mellitus with hyperglycemia; I10 Essential (primary) hypertension
CPT/HCPCS: 36415; 80053; 82465; 83036; 84439; 84443; 84478

== ENCOUNTER 2022-05-09 16:56 | Emergency (ER) | payer MEDICARE, MEDICAID ==
[~2022-05-09] VITALS: Ht 150 cm; Wt 89.0 kg
[2022-05-09] MEDS ORDERED: KETOROLAC 30 MG/ML VIAL IM ONE (18:00)
--- NOTE | 2022-05-09 18:00 | ED General ---
General Chief Complaint: Lower Extremity Stated Complaint: HEAD AND BILAT LEG PAIN Nursing Triage Note: PT TO ED IN WC WITH C/O BILAT LEG PAIN FOR 3 DAYS. PT REPORTS BOTH LEGS ARE ACHY, L IS WORSE. DENIES INJURY, NUMBNESS OR TINGLING. REPORTS SHE WAS AT THE HOSPITAL BECAUSE HER GRANDDAUGHER WAS HAVING TWINS AND WANTED TO GET CHECKED OUT. Source of Information: Patient Exam Limitations: No Limitations History of Present Illness Date Seen by Provider: May 09, 2022 Time Seen by Provider: 17:59 Initial Comments To ER with reports of headache, cough, chills, bilateral leg pain from the thighs on down that began 2 days ago. Timing/Duration: 1-2 Days Severity: Moderate Associated Systoms: Cough, Fever/Chills, Headaches, Malaise Allergies and Home Medications Allergies Coded Allergies: Iodinated Contrast Media (Verified Allergy, Unknown, 05/28/06) Penicillins (Verified Allergy, Unknown, 05/29/06) tramadol (Unverified Allergy, Unknown, 01/22/14) vancomycin (Verified Allergy, Unknown, 05/29/06) Patient Home Medication List Home Medication List Reviewed: Yes Albuterol Sulfate (Proventil Hfa) 6.7 Gm Hfa.aer.ad, 2 PUFF IH Q6H PRN for SHORTNESS OF BREATH, (Reported) Entered as Reported by: JARRETT SMITH on 01/16/17 0920 Albuterol Sulfate (Albuterol Sulfate) 2.5 Mg/3 Ml Vial.neb, 2.5 MG NEB Q8H PRN for SHORTNESS OF BREATH, (Reported) Entered as Reported by: HUNG ARANGO on 10/29/19 0935 Aspirin (Aspirin EC) 81 Mg Tablet.dr, 81 MG PO DAILY Prescribed by: DANIELA BURNS on 10/29/19 1125 Cefuroxime Axetil (Cefuroxime) 500 Mg Tablet, 500 MG PO BID Prescribed by: COREY DIAL on 03/20/21 1505 Cephalexin (Cephalexin) 500 Mg Tablet, 500 MG PO TID Prescribed by: FAITH ROSSI on 03/14/22 1329 Cetirizine HCl (Cetirizine HCl) 10 Mg Tablet, 10 MG PO DAILY PRN for ALLERGIES, (Reported) Entered as Reported by: HUNG ARANGO on 10/29/19 0935 Ciprofloxacin HCl (Ciprofloxacin HCl) 500 Mg Tablet, 500 MG PO BID Prescribed by: SANDRA MALONEY on 11/01/19 155 Diphenoxylate HCl/Atropine (Lomotil 2.5-0.025 mg Tablet) 1 Each Tablet, 1 EACH PO Q6H PRN for DIARRHEA Prescribed by: SANDRA MALONEY on 11/01/19 155 Esomeprazole Magnesium (Nexium) 40 Mg Cap, 40 MG PO HS, (Reported) Entered as Reported by: HUNG ARANGO on 10/29/19 09 Fluticasone Propionate (Fluticasone Propionate) 16 Gm [place].susp, 1 SPRAY NS DAILY PRN for ALLERGIES, (Reported) Entered as Reported by: HUNG ARANGO on 10/29/19925 Furosemide (Furosemide) 40 Mg Tablet, 40 MG PO DAILY, (Reported) Entered as Reported by: HUNG ARANGO on 10/29/19925 Methocarbamol (Methocarbamol) 750 Mg Tablet, 750 MG PO Q6-8HR Prescribed by: FAITH ROSSI on 03/14/22 1329 Metoprolol Succinate (Metoprolol Succinate) 25 Mg Tab.er.24h, 25 MG PO DAILY, (Reported) Entered as Reported by: HUNG ARANGO on 10/29/19925 Metronidazole (Flagyl) 500 Mg Tablet, 500 MG PO Q8H Prescribed by: SANDRA MALONEY on 11/01/19 155 Molnupiravir (Molnupiravir (Eua)) 200 Mg Capsule, 800 MG PO BID Prescribed by: COREY DIAL on 05/09/22 183 Ondansetron (Ondansetron Odt) 4 Mg Tab.rapdis, 4 MG PO Q8H PRN for NAUSEA /VOMITING Prescribed by: SANDRA MALONEY on 11/01/19 155 Phenazopyridine HCl (Pyridium) 100 Mg Tablet, 100 MG PO TID Prescribed by: COREY DIAL on 03/20/21 1505 Prednisone (Prednisone) 10 Mg Tab, 0 PO DAILY Prescribed by: PATRICIA GROVE on 10/29/19 1547 Prednisone (Prednisone) 20 Mg Tab, 40 MG PO DAILY Prescribed by: COREY DIAL on 06/11/21 1625 Rosuvastatin Calcium (Rosuvastatin Calcium) 20 Mg Tablet, 20 MG PO DAILY, (Reported) Entered as Reported by: HUNG ARANGO on 10/29/19 09 Warfarin Sodium (Warfarin Sodium) 4 Mg Tablet, 8 MG PO DAILY, (Reported) Entered as Reported by: HUNG ARANGO on 10/29/19 09 Warfarin Sodium (Warfarin Sodium) 2 Mg Tablet, 2 MG PO ThSa, (Reported) Entered as Reported by: HUNG ARANGO on 10/29/19 09 Review of Systems Review of Systems Constitutional: see HPI, chills EENTM: see HPI Respiratory: see HPI, cough Cardiovascular: no symptoms reported Genitourinary: no symptoms reported Musculoskeletal: muscle pain Skin: no symptoms reported Psychiatric/Neurological: No Symptoms Reported Hematologic/Lymphatic: No Symptoms Reported Past Hjaznoo-Kpgesi-Whpwpy Hx Patient Social History Tobacco Use?: No Smoking Status: Former Smoker Use of E-Cig and/or Vaping dev: No Substance use?: No Alcohol Use?: No Pt feels they are or have been: No Immunizations Up To Date Tetanus Booster (TDap): Unknown Influenza Vaccine Up-to-Date: No; Not Current First/Initial COVID19 Vaccinat: N/A Seasonal Allergies Seasonal Allergies: No Past Medical History Surgery/Hospitalization HX: COPD, HTN Surgeries: Yes Appendectomy, Cardiac, CABG, Tubal Ligation, Valve Replacement Respiratory: Yes Asthma, Chronic Bronchitis, COPD Cardiac: Yes Coronary Artery Disease, Hypertension, Valvular Heart Disease Neurological: No Reproductive Disorders: No Genitourinary: Yes UTI-Chronic Gastrointestinal: Yes Gastroesophageal Reflux, Hiatal Hernia Musculoskeletal: Yes Arthritis, Rheumatoid Arthritis Endocrine: No HEENT: Yes (CHRONIC DENTAL PROBLEMS) Cancer: No Psychosocial: No Integumentary: No Blood Disorders: No Family Medical History No Pertinent Family Hx Physical Exam Vital Signs Vital Signs - First Documented 05/09/22 17:35 Temp 37.1 Pulse 83 Resp 18 B/P (MAP) 143/82 (102) Pulse Ox 97 O2 Delivery Room Air Capillary Refill : Less Than 3 Seconds Height, Weight, BMI Height: 4'11.00" Weight: 199lbs. 1.6oz. 90.581646cl; 39.00 BMI Method:Stated General Appearance: No Apparent Distress, WD/WN Eyes: Bilateral Eye Normal Inspection, Bilateral Eye PERRL, Bilateral Eye EOMI HEENT: PERRL/EOMI, TMs Normal Neck: Full Range of Motion, Normal Inspection Respiratory: No Accessory Muscle Use, No Respiratory Distress Cardiovascular: Regular Rate, Rhythm, Normal Peripheral Pulses Gastrointestinal: Normal Bowel Sounds, Non Tender, Soft Extremity: Normal Capillary Refill, Normal Inspection Neurologic/Psychiatric: Alert, Oriented x3 Skin: Normal Color, Warm/Dry Progress/Results/Core Measures Suspected Sepsis SIRS Temperature: Pulse: 83 Respiratory Rate: 18 Blood Pressure 143 /82 Mean: 102 Results/Orders Lab Results Laboratory Tests Test 05/09/22 17:59 Range/Units Influenza Type A (RT-PCR) Not Detected Not Detecte Influenza Type B (RT-PCR) Not Detected Not Detecte SARS-CoV-2 RNA (RT-PCR) Detected H Not Detecte My Orders Orders - COREY DIAL APRN Covid 19 Inhouse Test (05/09/22 17:55) Influenza A And B By Pcr (05/09/22 17:55) Ketorolac Injection (Toradol Injection) (05/09/22 18:00) Medications Given in ED Current Medications Medications Dose Ordered Sig/[place] Route Start Time Stop Time Status Last Admin Dose Admin Ketorolac Tromethamine 30 mg ONCE ONCE IM 05/09/22 18:00 05/09/22 18:01 DC 05/09/22 18:12 30 MG Vital Signs/I&O 05/09/22 17:35 Temp 37.1 Pulse 83 Resp 18 B/P (MAP) 143/82 (102) Pulse Ox 97 O2 Delivery Room Air Capillary Refill : Less Than 3 Seconds Blood Pressure Mean: 102 Departure Communication (Admissions) Printed off a patient fact sheet from FDA website and discussed the EUA of Molnupiravir with patient. Paxlovid not chosen due to her extensive med list. Rx for molnupiravir. Impression Primary Impression: COVID-19 Disposition: 01 HOME, SELF-CARE Condition: Stable Departure-Patient Inst. Decision time for Depature: 18:30 Referrals: DANIELA BURNS DO (PCP/Family) Primary Care Physician Patient Instructions: COVID-19 ED Add. Discharge Instructions: 1. take the medication called molnupiravir as directed. Return to Er for any concerns All discharge instructions reviewed with patient and/or family. Voiced understa nding. Scripts Molnupiravir (Molnupiravir (Eua)) 200 Mg Capsule 800 MG PO BID for 5 Days, #40 CAP Prov: COREY DIAL APRN 05/09/22 COREY DIAL APRN May 09, 2022 18:00
[2022-05-09] MEDS ORDERED: MOLN200C PO (18:31)
[2022-05-09 18:35] VITALS: BP 135/76
== END 2022-05-09 18:43 | disposition home or self-care (01) ==
LOC: EDUNIT# 16:56 → ER 16:58
DX: U07.1 COVID-19 (principal); Z87.891 Personal history of nicotine dependence; Z28.310 Unvaccinated for COVID-19
CPT/HCPCS: 87636; 99284

== ENCOUNTER → 2022-05-27 | Outpatient (CLI) | payer MEDICARE, MEDICAID ==
[~2022-05-27] MED LIST changes: +MOLN200C PO
[2022-05-27 11:41] LABS: INR 1.2 (0.8-1.4); PROTHROMBIN TIME PATIENT 15.1 SEC (12.2-14.7)
== END ==
LOC: LAB 10:59
PROVIDERS: ATTEND Internal Medicine
DX: Z79.01 Long term (current) use of anticoagulants (principal)
CPT/HCPCS: 36415; 85610

== ENCOUNTER → 2022-09-27 | Outpatient (CLI) | payer MEDICARE, MEDICAID ==
[2022-09-27 09:04] LABS: BASOPHILS # (AUTO) 0.1 10^3/uL (0.0-0.1); BASOPHILS % (AUTO) 1 % (0-10); EOSINOPHILS # (AUTO) 0.8 10^3/uL (0.0-0.3); EOSINOPHILS % (AUTO) 8 % (0-10); HEMATOCRIT 37 % (35-52); HEMOGLOBIN 11.9 g/dL (11.5-16.0); LYMPHOCYTES # (AUTO) 2.4 10^3/uL (1.0-4.0); LYMPHOCYTES % (AUTO) 24 % (12-44); MEAN CORPUSCULAR HEMOGLOBIN 27 pg (25-34); MEAN CORPUSCULAR HGB CONC 32 g/dL (32-36); MEAN CORPUSCULAR VOLUME 85 fL (80-99); MEAN PLATELET VOLUME 10.7 fL (9.0-12.2); MONOCYTES # (AUTO) 0.7 10^3/uL (0.0-1.0); MONOCYTES % (AUTO) 7 % (0-12); NEUTROPHILS # (AUTO) 6.2 10^3/uL (1.8-7.8); NEUTROPHILS % (AUTO) 61 % (42-75); PLATELET COUNT 308 10^3/uL (130-400); WHITE BLOOD COUNT 10.2 10^3/uL (4.3-11.0)
[2022-09-27 09:19] LABS: PROTHROMBIN TIME PATIENT 22.8 SEC (12.2-14.7)
[2022-09-27 09:26] LABS: ALBUMIN 3.9 GM/DL (3.2-4.5); BILIRUBIN,TOTAL 0.4 MG/DL (0.1-1.0); CALCIUM 9.2 MG/DL (8.5-10.1); CREATININE SERUM 0.81 MG/DL (0.60-1.30); POTASSIUM 3.9 MMOL/L (3.6-5.0); TOTAL PROTEIN 7.1 GM/DL (6.4-8.2)
== END ==
LOC: LAB 08:27
PROVIDERS: ATTEND Internal Medicine Cardiovascular Disease
DX: I10 Essential (primary) hypertension (principal); I25.10 Atherosclerotic heart disease of native coronary artery without angina pectoris; I65.23 Occlusion and stenosis of bilateral carotid arteries; E78.2 Mixed hyperlipidemia; I35.0 Nonrheumatic aortic (valve) stenosis; J44.9 Chronic obstructive pulmonary disease, unspecified; E66.9 Obesity, unspecified; E11.9 Type 2 diabetes mellitus without complications
CPT/HCPCS: 36415; 80053; 80061; 85025; 85610

== ENCOUNTER → 2022-10-04 | Outpatient (CLI) | payer MEDICARE, MEDICAID | LOC: CARD 09:17 | PROVIDERS: ATTEND Internal Medicine Cardiovascular Disease | DX: I11.0 Hypertensive heart disease with heart failure (principal); I50.20 Unspecified systolic (congestive) heart failure; I34.81 Nonrheumatic mitral (valve) annulus calcification; Z95.2 Presence of prosthetic heart valve | CPT/HCPCS: 93306 ==